=== PATIENT | female | born 1965 | race Caucasian/White ===

== ENCOUNTER 2017-05-07 07:37 | Outpatient (CLI) | payer BC, SELFPAY ==
[2017-05-07 16:07] LABS: PHA INR Fingerstick 2.6 (0.9-1.1)
== END 2017-05-07 16:19 | disposition home or self-care (01) ==
LOC: ACC 07:38
PROVIDERS: Family Provider Internal Medicine; PCP Internal Medicine; Visit Provider Internal Medicine
DX: I82.409 Acute embolism and thrombosis of unspecified deep veins of unspecified lower extremity (principal); Z51.81 Encounter for therapeutic drug level monitoring; Z79.01 Long term (current) use of anticoagulants
CPT/HCPCS: 85610

== ENCOUNTER → 2017-05-07 08:15 | Outpatient (CLI) | payer BC, SELFPAY ==
--- NOTE | 2017-05-07 08:21 | MM_ITS ---
MM Dig screening mamm BI w/CAD CAD Screening COMPARISON: Digital mammograms 04/24/2015 and 04/26/2016 INDICATION: There is no personal or family history of breast cancer. 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 R2 CAD reviewed. FINDINGS: The breasts are composed primarily of fat with minimal scattered fibroglandular densities in each breast. Again noted is a prominent vein left breast stable and unchanged from the previous exams. There are couple of tiny benign-appearing calcifications in each breast. There is no suspicious lesion and no suspicious microcalcifications. IMPRESSION: Stable exam no suspicious lesion seen recommend yearly follow-up BI-RADS Category: 2 Benign Finding(s) RECOMMENDED FOLLOW-UP: 1YR - 1 YEAR FOLLOW-UP (A letter has been sent to the patient regarding results of the study.)
== END ==
PROVIDERS: Family Provider Internal Medicine; PCP Internal Medicine; Visit Provider Internal Medicine Hematology & Oncology
DX: Z12.31 Encounter for screening mammogram for malignant neoplasm of breast (principal)
CPT/HCPCS: 77067

== ENCOUNTER 2017-06-04 07:37 | Outpatient (CLI) | payer BC, SELFPAY ==
[2017-06-04 15:12] LABS: PHA INR Fingerstick 2.6 (0.9-1.1)
== END 2017-06-04 15:15 | disposition home health service (06) ==
LOC: ACC 07:38
PROVIDERS: PCP Internal Medicine; Visit Provider Internal Medicine
DX: Z79.01 Long term (current) use of anticoagulants (principal); Z51.81 Encounter for therapeutic drug level monitoring
CPT/HCPCS: 85610

== ENCOUNTER 2017-08-06 11:09 | Outpatient (CLI) | payer BC, SELFPAY ==
[2017-08-06 13:36] LABS: PHA INR Fingerstick 2.3 (0.9-1.1)
== END 2017-08-06 13:39 | disposition home or self-care (01) ==
LOC: ACC 11:11
PROVIDERS: PCP Internal Medicine; Visit Provider Internal Medicine
DX: Z79.01 Long term (current) use of anticoagulants (principal); Z51.81 Encounter for therapeutic drug level monitoring
CPT/HCPCS: 85610; 99211; G0463

== ENCOUNTER → 2017-08-11 15:16 | Outpatient (CLI) | payer BC, SELFPAY ==
--- NOTE | 2017-08-11 15:21 | XR_ITS ---
XR chest 2V HISTORY: ITS.REASON: SHORTNESS OF BREATH,ASTHMA ORDERING PHYSICIAN: Martin Khan PATIENT AGE: 51 years COMPARISON: 03/02/2017 FINDINGS: The cardiomediastinal silhouette and pulmonary vascularity are within normal limits. The lungs are clear without infiltrates, suspicious nodules, or pleural effusions. No acute bony abnormalities. IMPRESSION: Negative chest, no acute finding
== END ==
PROVIDERS: PCP Internal Medicine; Visit Provider Internal Medicine
DX: R06.02 Shortness of breath (principal); Z87.01 Personal history of pneumonia (recurrent)
CPT/HCPCS: 71046

== ENCOUNTER → 2017-08-20 10:27 | Outpatient (CLI) | payer BC, SELFPAY ==
--- NOTE | 2017-08-20 | CA_ITS ---
PROCEDURE: 2-D M-mode and color Doppler study INDICATIONS FOR THE TEST: Chest pain COPD Heart Murmur+ Tobacco Smoking Palpitations+ Fatigue Syncope Edema+ Hypertension Diabetes Mellitus Rheumatic Fever SOB ANDERSON Obesity Hyperlipidemia Family History HD+ Additional History hx of lymphoma PATIENT INFORMATION HEIGHT: 65 WEIGHT: 285 GENDER: Female B/P: 138/72 2-D/M-MODE INTERPRETATION: 2-D MEASUREMENTS OBSERVED VALUES IN CMS Right Ventricular Dimension (RVDd) 2.4 Interventricular Septum (Thickness)(IVsd) 0.8 Left Ventricular Internal Dimensions(LVIDd) 4.9 Left Ventricular Posterior Wall (Thickness)(LVPWd) 0.9 Aortic Root 2.4 Aortic Cusp Separation 1.7 Left Atrial Dimensions (LAD) 3.7 2D 1. Left atrium is mildly enlarged, left ventricle is normal size, visually estimated ejection fraction of 55% with no obvious regional wall motion abnormality. 2. The right atrium and right ventricle are mildly enlarged with normal contractility. 3. The aortic valve is thickened and calcified 4. The mitral valve has mitral calcification. 5. The tricuspid valve is grossly normal. 6. The pulmonic valve is poorly visualized. 7. No significant pericardial effusion noted. DOPPLER INTERROGATION: Doppler interrogation of the aortic, mitral and tricuspid valvular presence of mild aortic, mild mitral and tricuspid regurgitation, tricuspid and enteric velocity insufficient for calculation of the right ventricular systolic pressure, grade 1 diastolic dysfunction seen with tissue Doppler evidence of raised left atrial pressure. CONCLUSION: 1. Mildly enlarged left atrium, normal left ventricular size, visually estimated ejection fraction of 55% with no obvious regional wall motion abnormality, grade 1 diastolic dysfunction seen with tissue Doppler evidence of raised left atrial pressure. 2. Mild aortic, mild mitral and tricuspid regurgitation 3. No significant pericardial effusion noted.
== END ==
PROVIDERS: Family Provider Internal Medicine; PCP Internal Medicine; Visit Provider Internal Medicine
DX: R06.02 Shortness of breath (principal); R60.9 Edema, unspecified; R01.1 Cardiac murmur, unspecified
CPT/HCPCS: 93306

== ENCOUNTER → 2017-09-08 07:34 | Outpatient (CLI) | payer BC, SELFPAY ==
--- NOTE | 2017-09-08 07:39 | CT_ITS ---
CT abdomen pelvis wo con CLINICAL INDICATION: ITS.REASON: LUQ PAIN, NAUSEA ORDERING PHYSICIAN: Martin Khan PATIENT AGE: 51 years COMPARISON: 03/14/2015 TECHNIQUE: Axial images obtained with sagittal and coronal reformats. All CT scans at the facility use one or more dose reduction, viz: automated exposure control; ma/kV adjustment per patient size (including targeted exams where dose is matched to indication; i.e. head); or iterative reconstruction technique. PROCEDURE: Oral Contrast: None IV Contrast: None . FINDINGS: The lung bases are clear. Prior cholecystectomy without ductal dilatation. The spleen, adrenal glands, pancreas, and kidneys have an unremarkable unenhanced CT appearance. There are multiple splenic calcified granulomas as an incidental finding as before. No intestinal obstruction or free air. Prior appendectomy. Prior hysterectomy. No pelvic mass or abnormal fluid collection or focal inflammatory change evident. No acute bony anomalies. IMPRESSION: 1. No acute abdominal or pelvic findings. 2. Postsurgical changes
== END ==
PROVIDERS: Family Provider Internal Medicine; PCP Internal Medicine; Visit Provider Internal Medicine
DX: R10.12 Left upper quadrant pain (principal); R11.0 Nausea
CPT/HCPCS: 74176

== ENCOUNTER 2017-10-08 10:27 | Outpatient (CLI) | payer BC, SELFPAY ==
[2017-10-08 14:09] LABS: PHA INR Fingerstick 2.3 (0.9-1.1)
== END 2017-10-08 14:14 | disposition home or self-care (01) ==
LOC: ACC 10:29
PROVIDERS: PCP Internal Medicine; Visit Provider Internal Medicine
DX: I82.409 Acute embolism and thrombosis of unspecified deep veins of unspecified lower extremity (principal); I26.99 Other pulmonary embolism without acute cor pulmonale
CPT/HCPCS: 85610; 99211; G0463

== ENCOUNTER 2017-11-19 10:44 | Outpatient (CLI) | payer BC, SELFPAY ==
[2017-11-20 11:03] LABS: PHA INR Fingerstick 3.6 (0.9-1.1)
== END 2017-11-20 11:05 | disposition home or self-care (01) ==
LOC: ACC 10:46
PROVIDERS: Family Provider Internal Medicine; PCP Internal Medicine; Visit Provider Internal Medicine
DX: Z79.01 Long term (current) use of anticoagulants (principal); Z51.81 Encounter for therapeutic drug level monitoring; I48.91 Unspecified atrial fibrillation
CPT/HCPCS: 85610; 99211; G0463

== ENCOUNTER 2017-11-28 08:09 | Outpatient (CLI) | payer BC, SELFPAY ==
[2017-11-28 10:31] LABS: PHA INR Fingerstick 2.3 (0.9-1.1)
== END 2017-11-28 10:33 | disposition home or self-care (01) ==
LOC: ACC 08:10
PROVIDERS: PCP Internal Medicine; Visit Provider Internal Medicine
DX: Z79.01 Long term (current) use of anticoagulants (principal); Z51.81 Encounter for therapeutic drug level monitoring; I48.91 Unspecified atrial fibrillation
CPT/HCPCS: 85610; 99211; G0463

== ENCOUNTER 2017-12-19 08:03 | Outpatient (CLI) | payer BC, SELFPAY ==
[2017-12-19 15:10] LABS: PHA INR Fingerstick 3.1 (0.9-1.1)
== END 2017-12-19 15:21 | disposition home or self-care (01) ==
LOC: ACC 08:04
PROVIDERS: PCP Internal Medicine; Visit Provider Internal Medicine
DX: Z79.01 Long term (current) use of anticoagulants (principal); Z51.81 Encounter for therapeutic drug level monitoring; I48.91 Unspecified atrial fibrillation
CPT/HCPCS: 85610; 99211; G0463

== ENCOUNTER 2018-01-16 11:12 | Outpatient (CLI) | payer BC, SELFPAY ==
[2018-01-16 12:15] LABS: PHA INR Fingerstick 2.5 (0.9-1.1)
== END 2018-01-16 12:16 | disposition home or self-care (01) ==
LOC: ACC 11:14
PROVIDERS: PCP Internal Medicine; Visit Provider Internal Medicine
DX: Z51.81 Encounter for therapeutic drug level monitoring (principal); Z79.01 Long term (current) use of anticoagulants; I48.91 Unspecified atrial fibrillation
CPT/HCPCS: 85610; 99211; G0463

== ENCOUNTER 2018-03-02 10:43 | Outpatient (CLI) | payer BC, SELFPAY ==
[2018-03-02 15:25] LABS: PHA INR Fingerstick 1.6 (0.9-1.1)
== END 2018-03-02 15:41 | disposition home or self-care (01) ==
LOC: ACC 10:44
PROVIDERS: PCP Internal Medicine; Visit Provider Internal Medicine
DX: Z51.81 Encounter for therapeutic drug level monitoring (principal); Z79.01 Long term (current) use of anticoagulants; I48.91 Unspecified atrial fibrillation
CPT/HCPCS: 85610; 99211; G0463

== ENCOUNTER 2018-03-30 10:41 | Outpatient (CLI) | payer BC, SELFPAY | END 2018-03-30 12:16 | disposition home or self-care (01) | LOC: ACC 10:42 | PROVIDERS: PCP Internal Medicine; Visit Provider Internal Medicine | DX: Z51.81 Encounter for therapeutic drug level monitoring (principal); Z79.01 Long term (current) use of anticoagulants; I48.91 Unspecified atrial fibrillation | CPT/HCPCS: 85610; 99211; G0463 ==

== ENCOUNTER 2018-04-28 10:17 | Outpatient (CLI) | payer BC, SELFPAY ==
[2018-04-28 13:34] LABS: PHA INR Fingerstick 2.5 (0.9-1.1)
== END 2018-04-28 13:36 | disposition home or self-care (01) ==
LOC: ACC 10:17
PROVIDERS: PCP Internal Medicine; Visit Provider Internal Medicine
DX: Z51.81 Encounter for therapeutic drug level monitoring (principal); Z79.01 Long term (current) use of anticoagulants; I48.91 Unspecified atrial fibrillation
CPT/HCPCS: 85610; 99211; G0463

== ENCOUNTER → 2018-05-11 08:13 | Outpatient (CLI) | payer BC, SELFPAY ==
--- NOTE | 2018-05-11 08:21 | MM_ITS ---
MM Dig screening mamm BI w/CAD ORDERING PHYSICIAN : Susannah Ballard PATIENT AGE: 52 years GENDER: Female COMPARISON: INDICATION: ITS.REASON: SCREENING no hormones. No new complaints. Noncontributory family history. Patient reports previous cancer at lymph nodes of chest. TECHNIQUE: Standard CC and MLO images were obtained. R2 CAD reviewed. Additional CC nipple profile view bilaterally was included FINDINGS: Lower density breast bilaterally. Generalized fatty replacement. No significant new findings compared to previous studies. RIGHT BREAST:No new areas of significant concern. Small Collection of small scattered faint nodular areas at central right breast are again noted and have been present since at least 2011.. .. A second very subtle tiny collection of nodules or lateral at right breast appears similar 2017 2018 studies. & Can be followed. A would recommend and increased bilateral follow-up in not over one year Of LEFT BREAST:Stable no new areas of concern. . Again note prominent vein at the superior left breast unchanged since multiple prior studies IMPRESSION: Stable bilateral mammogram with no new areas of significant concern. Stable benign-appearing findings right breast.. Bilateral follow-up in not over one year recommended. BI-RADS Category: 2 Benign Finding(s) RECOMMENDED FOLLOW-UP: 1YR 1 YEAR FOLLOW-UP (A letter has been sent to the patient regarding results of the study.)
== END ==
PROVIDERS: PCP Internal Medicine; Visit Provider Internal Medicine Hematology & Oncology
DX: Z12.31 Encounter for screening mammogram for malignant neoplasm of breast (principal)
CPT/HCPCS: 77067

== ENCOUNTER → 2018-05-27 07:41 | Outpatient (CLI) | payer BC, SELFPAY | PROVIDERS: PCP Internal Medicine; Visit Provider Internal Medicine | DX: R07.89 Other chest pain (principal) | CPT/HCPCS: 93005 ==

== ENCOUNTER → 2018-06-08 10:44 | Outpatient (CLI) | payer BC, SELFPAY ==
[2018-06-08 11:27] LABS: PHA INR Fingerstick 2.6 (0.9-1.1)
== END | disposition home or self-care (01) ==
PROVIDERS: PCP Internal Medicine; Visit Provider Internal Medicine
DX: Z51.81 Encounter for therapeutic drug level monitoring (principal); Z79.01 Long term (current) use of anticoagulants; I48.91 Unspecified atrial fibrillation
CPT/HCPCS: 85610; 99211; G0463

== ENCOUNTER 2018-07-20 10:51 | Outpatient (CLI) | payer BC, SELFPAY ==
[2018-07-20 11:24] LABS: PHA INR Fingerstick 2.6 (0.9-1.1)
== END 2018-07-20 11:26 | disposition home or self-care (01) ==
LOC: ACC 10:52
PROVIDERS: PCP Internal Medicine; Visit Provider Internal Medicine
DX: Z51.81 Encounter for therapeutic drug level monitoring (principal); Z79.01 Long term (current) use of anticoagulants; I48.91 Unspecified atrial fibrillation
CPT/HCPCS: 85610; 99211; G0463

== ENCOUNTER 2018-09-09 10:10 | Outpatient (CLI) | payer BC, SELFPAY ==
[2018-09-09 13:40] LABS: PHA INR Fingerstick 2.7 (0.9-1.1)
== END 2018-09-09 13:44 | disposition home or self-care (01) ==
LOC: ACC 10:10
PROVIDERS: PCP Internal Medicine; Visit Provider Internal Medicine
DX: Z51.81 Encounter for therapeutic drug level monitoring (principal); Z79.01 Long term (current) use of anticoagulants; I48.91 Unspecified atrial fibrillation
CPT/HCPCS: 85610; 99211; G0463

== ENCOUNTER 2018-10-21 10:52 | Outpatient (CLI) | payer BC, SELFPAY ==
[2018-10-21 12:01] LABS: PHA INR Fingerstick 2.4 (0.9-1.1)
== END 2018-10-21 12:13 | disposition home or self-care (01) ==
LOC: ACC 10:52
PROVIDERS: PCP Internal Medicine; Visit Provider Internal Medicine
DX: Z51.81 Encounter for therapeutic drug level monitoring (principal); Z79.01 Long term (current) use of anticoagulants; I48.91 Unspecified atrial fibrillation
CPT/HCPCS: 85610; 99211; G0463

== ENCOUNTER → 2018-10-28 09:10 | Outpatient (CLI) | payer BC, SELFPAY ==
--- NOTE | 2018-10-28 09:20 | NVE_ITS ---
Venous Exam Indications: 729.5 Pain in limb. IMPRESSIONS 1. There is no evidence of significant Reflux. 2. No evidence of deep or superficial vein thrombosis involving the left lower extremity History: PMH: Pulmonary embolus. Deep vein thrombosis. 2 yrs ago. Medications: Warfarin (Coumadin). Left lower extremity venous duplex evaluation. Doppler flow study including spectral analysis, color and ferguson scale imaging. Location: Vascular laboratory. Patient status: Outpatient. Tables: Venous flow and imaging: + +-------+ + Location Overall Flow properties + +-------+ + Left common femoral Patent Normal phasicity; spontaneous; normal augmentation; compressible + +-------+ + Left saphenofemoral junction Patent Compressible + +-------+ + Left profunda femoral Patent Compressible + +-------+ + Left femoral Patent Normal phasicity; spontaneous; normal augmentation; compressible + +-------+ + Left greater saphenous Patent Normal phasicity; spontaneous; normal augmentation; compressible + +-------+ + Left popliteal Patent Normal phasicity; spontaneous; normal augmentation; compressible + +-------+ + Left posterior tibial Patent Compressible + +-------+ + Left peroneal Patent Compressible + +-------+ + Left gastrocnemius Patent Compressible + +-------+ + Left soleal Patent Compressible + +-------+ + (Report amended ) Electronically signed by: Darrius Marley [id number]
== END ==
PROVIDERS: PCP Internal Medicine; Visit Provider Internal Medicine
DX: M79.662 Pain in left lower leg (principal); M79.89 Other specified soft tissue disorders
CPT/HCPCS: 93971

== ENCOUNTER 2018-12-02 10:38 | Outpatient (CLI) | payer BC, SELFPAY ==
[2018-12-02 13:33] LABS: PHA INR Fingerstick 2.2 (0.9-1.1)
== END 2018-12-02 13:36 | disposition home or self-care (01) ==
LOC: ACC 10:38
PROVIDERS: PCP Internal Medicine; Visit Provider Internal Medicine
DX: Z51.81 Encounter for therapeutic drug level monitoring (principal); Z79.01 Long term (current) use of anticoagulants
CPT/HCPCS: 85610; 99211; G0463

== ENCOUNTER 2019-01-12 10:31 | Outpatient (CLI) | payer BC, SELFPAY ==
[2019-01-12 12:09] LABS: PHA INR Fingerstick 2.7 (0.9-1.1)
== END 2019-01-12 12:11 | disposition home or self-care (01) ==
LOC: ACC 10:32
PROVIDERS: PCP Internal Medicine; Visit Provider Internal Medicine
DX: Z51.81 Encounter for therapeutic drug level monitoring (principal); Z79.01 Long term (current) use of anticoagulants; I48.91 Unspecified atrial fibrillation
CPT/HCPCS: 85610; 99211; G0463

== ENCOUNTER 2019-02-24 10:35 | Outpatient (CLI) | payer BC, SELFPAY ==
[2019-02-24 13:59] LABS: PHA INR Fingerstick 3.2 (0.9-1.1)
== END 2019-02-24 14:01 | disposition home or self-care (01) ==
LOC: ACC 10:36
PROVIDERS: PCP Internal Medicine; Visit Provider Internal Medicine
DX: Z51.81 Encounter for therapeutic drug level monitoring (principal); Z79.01 Long term (current) use of anticoagulants; I48.91 Unspecified atrial fibrillation
CPT/HCPCS: 85610; 99211; G0463

== ENCOUNTER 2019-03-24 10:43 | Outpatient (CLI) | payer BC, SELFPAY ==
[2019-03-24 16:20] LABS: PHA INR Fingerstick 2.4 (0.9-1.1)
== END 2019-03-24 16:31 | disposition home or self-care (01) ==
LOC: ACC 10:43
PROVIDERS: PCP Internal Medicine; Visit Provider Internal Medicine
DX: Z51.81 Encounter for therapeutic drug level monitoring (principal); Z79.01 Long term (current) use of anticoagulants; I48.91 Unspecified atrial fibrillation
CPT/HCPCS: 85610; 99211; G0463

== ENCOUNTER 2019-05-05 10:31 | Outpatient (CLI) | payer BC, SELFPAY | END 2019-05-05 15:20 | disposition home or self-care (01) | LOC: ACC 10:32 | PROVIDERS: PCP Internal Medicine; Visit Provider Internal Medicine | DX: Z51.81 Encounter for therapeutic drug level monitoring (principal); Z79.01 Long term (current) use of anticoagulants; I48.91 Unspecified atrial fibrillation | CPT/HCPCS: 85610; 99211; G0463 ==

== ENCOUNTER → 2019-05-14 07:55 | Outpatient (CLI) | payer BC, SELFPAY ==
--- NOTE | 2019-05-14 07:58 | MM_ITS ---
PROCEDURE: MM DIG SCREENING MAMM BI W/CAD CLINICAL INDICATION: SCREENING There is no personal or family history of breast cancer. COMPARISON: [facility] DIG MAMM-SCREEN RUBY W/CAD from 04/26/2016 [facility] MM Dig screening mamm BI w/CAD from 05/07/2017 [facility] MM Dig screening mamm BI w/CAD from 05/11/2018 TECHNIQUE: Standard CC and MLO images were obtained. Sergio images were performed. FINDINGS: The breasts are composed primarily of fat with very minimal scattered fibroglandular densities throughout each breast. There are stable tiny nodular density central portion right breast central portion right breast confirmed on sergio images. Again noted are the prominent veins near the axillary tail left breast stable and unchanged from the previous studies. There is no suspicious lesion and no suspicious microcalcifications. IMPRESSION: Fatty type breast parenchyma with no suspicious lesions seen BI-RAD Category: 2 Benign Finding(s) FOLLOW-UP: 1YR 1 Year Follow-up (A letter has been sent to the patient regarding results of the study.) Dictated by: Dr. Charlie Gonzalez MD 05/18/2019 10:[address] Charlie Gonzalez MD in [place] 05/18/2019 10:11
== END ==
PROVIDERS: PCP Internal Medicine; Visit Provider Internal Medicine Hematology & Oncology
DX: Z12.31 Encounter for screening mammogram for malignant neoplasm of breast (principal)
CPT/HCPCS: 77063; 77067

== ENCOUNTER → 2019-06-03 11:30 | Outpatient (CLI) | payer BC, SELFPAY | PROVIDERS: PCP Internal Medicine; Visit Provider Internal Medicine Cardiovascular Disease | DX: R00.2 Palpitations (principal); R01.1 Cardiac murmur, unspecified; R06.00 Dyspnea, unspecified; R94.31 Abnormal electrocardiogram [ECG] [EKG] | CPT/HCPCS: 93270 ==

== ENCOUNTER → 2019-06-16 07:40 | Outpatient (CLI) | payer SELFPAY ==
--- NOTE | 2019-06-16 | CA_ITS ---
APPROVED REPORT Exam: Pharmacologic Technologist: Mony Polk Ht: 5 ft 5 in Wt: 276 lbs BSA: 2.27 m2 HR: 72 bpm BP: 153/91 mmHg Indications: Abnormal EKG, Shortness of Breath, Palpitations Medical History Medications: Warfarin,,,,, Metoprolol,,,,, PaROXETINE,,,,, Meclizine,,,,, SpirOnolactone,,,,, Stress Test Details Test: LEXISCAN HR Resting HR: 76 bpm Max Heart Rate (APMHR): 165 bpm Max HR Achieved: 98 bpm Target HR (85% APMHR): 140 bpm % of APMHR: 59 Recovery HR: 84 bpm BP Resting BP: 153.0/91.0 mmHg Max BP: 199.0/101.0 mmHg Recovery BP: 148.0/91.0 mmHg ECG Clinical Exercise duration: 04:02 min Highest Stage Achieved: Stress ECG Conclusion Resting ECG: Normal sinus rhythm, first degree AV block Symptoms: Shortness of air, headache. No chest pain Arrhythmias/Ectopy: None ST-T Changes: No significant changes. Conclusion: Unremarkable Lexiscan stress. Myoview images reported separately. Test Summary RECOVERY 08:43 . . . 137/ 88 . . REST 05:14 . . 76 . 153/ 91 . . Stage 1 . . . . . . . Myoview Injected Stage 1 01:00 . . 94 . . . . Stage 2 01:00 . . 94 . . . . Stage 3 01:00 . . 92 . 178/100 . . Stage 4 01:00 . . 93 . 185/ 94 . . Stage 4 01:02 . . 92 . 185/ 94 . Stop exercise at 04:02 RECOVERY 01:00 . . 92 . . . . RECOVERY 02:00 . . 87 . 164/107 . . RECOVERY 03:00 . . 79 . 181/100 . . RECOVERY 04:00 . . 86 . 181/100 . . RECOVERY 05:00 . . 85 . 198/100 . . RECOVERY 06:00 . . 82 . 198/100 . . RECOVERY 07:00 . . 87 . 148/ 91 . . RECOVERY 08:00 . . 86 . 148/ 91 . . RECOVERY 08:43 . . 79 . 137/ 88 . . Electronically signed by : Elvin Garrido, 06/17/2019 14:21:11
--- NOTE | 2019-06-16 07:41 | CT_ITS ---
PROCEDURE: CT HEART W CALCIUM SCORE CLINICAL HISTORY: CARDIAC work up COMPARISON: No exams were available for comparison TECHNIQUE: Axial images obtained with sagittal and coronal reformats. All CT scans at the facility use one or more dose reduction, viz: automated exposure control, ma/kV adjustment per patient size (including targeted exams where dose is matched to indication, i.e. head), or iterative reconstruction technique. FINDINGS: CORONARY ARTERY CALCIUM SCORE IS 0. NO IDENTIFIABLE CALCIFIC PLAQUE WITH VERY LOW CARDIOVASCULAR DISEASE RISK. THERE ARE SOME AORTIC VALVE CALCIFICATIONS NOTED IMPRESSION: CORONARY ARTERY CALCIUM SCORE IS 0. NO IDENTIFIABLE CALCIFIC PLAQUE WITH VERY LOW CARDIOVASCULAR DISEASE RISK. THERE ARE SOME AORTIC VALVE CALCIFICATIONS NOTED Dictated by: Darrius Marley MD 06/16/2019 18:20 Electronically signed by Darrius Marley MD in [place] 06/16/2019 18:20
== END ==
PROVIDERS: PCP Internal Medicine; Visit Provider Internal Medicine Cardiovascular Disease
DX: Z13.6 Encounter for screening for cardiovascular disorders (principal); R06.02 Shortness of breath; R07.9 Chest pain, unspecified
CPT/HCPCS: 75571; 93017

== ENCOUNTER → 2019-06-16 07:45 | Outpatient (CLI) | payer BC, SELFPAY ==
--- NOTE | 2019-06-16 07:46 | CA_ITS ---
APPROVED REPORT Customer Support Consultant: Jeannie Garcia RVT Laterality: Bilateral Study Quality: Excellent Indications: HTN Risk Factors Hypertension: Doppler Spectral Velocity Analysis ECA (R) 116.80/9.40 cm/s ECA (L) 92.20/8.90 cm/s dICA (R) 86.80/34.90 cm/s dICA (L) 73.60/24.30 cm/s Brittany (R) 90.40/34.90 cm/s Brittany (L) 86.80/26.30 cm/s pICA (R) 82.60/22.80 cm/s pICA (L) 88.70/28.00 cm/s dCCA (R) 68.30/17.80 cm/s dCCA (L) 94.70/26.30 cm/s pCCA (R) 84.20/17.20 cm/s pCCA (L) 98.90/20.60 cm/s Vert (R) 47.70/14.20 cm/s Vert (L) 38.80/10.50 cm/s ICA/CCA 1.32 ICA/CCA 0.94 Conclusion Study suggests no evidence of stenosis in the right internal cartoid artery. Study suggests no evidence of stenosis in the left internal cartoid artery. Antegrade flow seen bilateral vertebral arteries. Electronically signed by : Darrius Marley MD 06/16/2019 18:13:03
--- NOTE | 2019-06-16 07:46 | CA_ITS ---
APPROVED REPORT EXAM: Comprehensive 2D, Doppler, and color-flow Echocardiogram Human Resources Office Manager: Jeannie Garcia RVT Ht: 5 ft 5 in Wt: 276lbs BSA: 2.27 BP: 146/97 mmHg Indications: CP,ABN EKG,PALPS,SOB,H/O PE/DVT,H/O NON-HODGKINS LYMPHOMA 2D Dimensions LVOT 1.55 cm (M/F) 1.5-2.5 M-Mode Dimensions RVDd 2.31 cm (0.9-2.6) LVDd 4.55 cm (3.5-5.7) LVDs 2.81 cm (3.5-5.7) IVSd 1.21 cm (0.6-1.1) PWd 0.91 cm (0.6-1.1) EF (Teich) 68.60% FS 38.20% EDV (Teich) 94.90 mL ESV (Teich) 29.80 mL LV Diastology E/A Ratio 0.86 Mitral Valve MV A Velocity 71.00 (40-130 cm/s) Left Ventricle Left atrium is mildly enlarged, left ventricle is normal size, visually estimated ejection fraction 55% with no regional wall motion abnormality, left ventricle wall thickness is upper limit of the normal, there is grade 1 diastolic dysfunction seen without tissue Doppler evidence of raise left atrial pressure. Right Ventricle Right atrium is normal size, right ventricle is mildly enlarged with normal contractility. Aortic Valve Aortic valve is minimally thickened and fibrosed, there is no aortic stenosis, there is mild aortic insufficiency. Mitral Valve Mitral valve is grossly normal, there is mild mitral regurgitation. Tricuspid Valve Tricuspid valve is grossly normal, there is mild tricuspid regurgitation, tricuspid regurgitation jet velocity is inadequate for calculation of the right ventricular systolic pressure. Pulmonic Valve Pulmonic valve is poorly visualized. Great Vessels Aortic root is normal size. Pericardium No significant pericardial effusion noted. Conclusion 1. Mildly enlarged left atrium, normal left ventricular size, visually estimated ejection fraction 55% with no regional wall motion abnormality, grade 1 diastolic dysfunction seen without tissue Doppler evidence of raise left atrial pressure. 2. Mildly enlarged right ventricle with normal contractility. 3. Mild aortic, mild mitral and tricuspid regurgitation. 4. No significant pericardial effusion noted. Electronically signed by : Elvin Garrido, 06/17/2019 16:08:20
[2019-06-16 11:16] LABS: PHA INR Fingerstick 2.2 (0.9-1.1)
--- NOTE | 2019-06-16 12:30 | NM_ITS ---
APPROVED REPORT Exam: Nuclear Stress Test Indication: DYSRHYTHMIA, HTN, OBESITY, FM. HX, C.P., SOB, PALPITATIONS, ABN EKG Patient Location: Outpatient Stress Tech: Mony Polk OR Tech:Ambreen Samaniego, ARRT RT (R)(N)(M) Ht: 5 ft 5 in Wt: 276 lbs HR: 72 bpm BP: 153/91 mmHg BSA: 2.27 m2 BMI: 45.9 History: DYSRHYTHMIA, HTN, OBESITY, FM. HX, C.P., SOB, PALPITATIONS, ABN EKG Procedure: Patient received a 0.4 mg of intravenous Lexiscan, resting heart rate 72 bpm, resting blood pressure 153/91 mmHg, with Lexiscan maximum heart rate achived was 93 bpm which is Less than 85 % of the maximum predicted heart rate and blood pressure was 199/101 mmHg. With Lexiscan, patient denied any complaint of chest pain. Electrocardiogram Resting electrocardiogram showed sinus rhythm, with Lexiscan there is less than 1.[address] segment depression noted from the baseline EKG. The EKG portion of the Lexiscan Myoview is nondiagnostic. Cardiac Stress and Resting SPECT Images: Cardiac Stress and Resting SPECT images were obtained using technetium 99m Myoview 31.7 mCi stress and 10.76 mCi at rest. Gated SPECT with analysis of segmental wall motion and calculation of the ejection fraction also done. Cardiac stress and resting SPECT images show uniform myocardial activity without segmental perfusion abnormality, computer derived ejection fraction is 60% with no regional wall motion abnormality, right ventricle is normal size and contractility. Conclusion: 1. The EKG portion of the Lexiscan Myoview is nondiagnostic. 2. No scintigraphic evidence of reversible ischemia seen, computer derived ejection fraction is 60% with no regional wall motion abnormality, right ventricle is normal size and contractility. 3. Normal Lexiscan Myoview study. Electronically signed by : Elvin Garrido, 06/17/2019 15:09:18
== END ==
PROVIDERS: PCP Internal Medicine; Visit Provider Internal Medicine Cardiovascular Disease
DX: R00.2 Palpitations (principal); R01.1 Cardiac murmur, unspecified; R07.9 Chest pain, unspecified; R06.00 Dyspnea, unspecified; R53.83 Other fatigue; I10 Essential (primary) hypertension; R94.31 Abnormal electrocardiogram [ECG] [EKG]; G47.33 Obstructive sleep apnea (adult) (pediatric); R06.83 Snoring; R40.0 Somnolence; R09.89 Other specified symptoms and signs involving the circulatory and respiratory systems; Z51.81 Encounter for therapeutic drug level monitoring; Z79.01 Long term (current) use of anticoagulants
CPT/HCPCS: 78452; 85610; 93306; 93880; 99211; A9502; G0399; G0463; J2785

== ENCOUNTER 2019-07-28 10:45 | Outpatient (CLI) | payer BC, SELFPAY ==
[2019-07-28 13:20] LABS: PHA INR Fingerstick 2.4 (0.9-1.1)
== END 2019-07-28 13:21 | disposition home or self-care (01) ==
LOC: ACC 10:45
PROVIDERS: PCP Internal Medicine; Visit Provider Internal Medicine
DX: Z51.81 Encounter for therapeutic drug level monitoring (principal); Z79.01 Long term (current) use of anticoagulants; I48.91 Unspecified atrial fibrillation
CPT/HCPCS: 85610; 99211; G0463

== ENCOUNTER 2019-10-01 10:26 | Outpatient (CLI) | payer BC, SELFPAY ==
[2019-10-01 10:57] LABS: PHA INR Fingerstick 2.8 (0.9-1.1)
== END 2019-10-01 11:00 | disposition home or self-care (01) ==
LOC: ACC 10:27
PROVIDERS: PCP Internal Medicine; Visit Provider Internal Medicine
DX: Z51.81 Encounter for therapeutic drug level monitoring (principal); Z79.01 Long term (current) use of anticoagulants; I48.91 Unspecified atrial fibrillation
CPT/HCPCS: 85610; 99211; G0463

== ENCOUNTER → 2019-11-03 11:03 | Outpatient (CLI) | payer BC, SELFPAY ==
[2019-11-03 12:05] LABS: Chloride 104 mmol/L (98-107); Sodium 141 mmol/L (136-145)
[2019-11-03 12:06] LABS: Potassium 4.4 mmoL/L (3.5-5.1)
[2019-11-03 12:08] LABS: Blood Urea Nitrogen 13 mg/dl (7-17); Estimated Glomerular Filt Rate 74 ml/min (>60); GFR (African American) 90 ML/MIN (>60)
[2019-11-03 12:09] LABS: Anion Gap 12.4 mEq/L (5-15); Calcium 9.4 mg/dl (8.4-10.2); Carbon Dioxide 29 mmol/L (22.0-30.0); Glucose 101 mg/dl (74-100)
[2019-11-03 12:47] LABS: Coronavirus 19 IgG Antibody Negative (Negative); Coronavirus 19 IgM Antibody Negative (Negative)
== END ==
PROVIDERS: Internal Medicine Cardiovascular Disease; Visit Provider Physician Assistant
DX: Z03.818 Encounter for observation for suspected exposure to other biological agents ruled out (principal); E66.9 Obesity, unspecified; I10 Essential (primary) hypertension; Z86.718 Personal history of other venous thrombosis and embolism
CPT/HCPCS: 36415; 80048; 86328

== ENCOUNTER → 2019-11-04 19:49 | Outpatient (CLI) | payer BC, SELFPAY | PROVIDERS: PCP Internal Medicine; Visit Provider Physician Assistant | DX: G47.33 Obstructive sleep apnea (adult) (pediatric) (principal); I10 Essential (primary) hypertension; R40.0 Somnolence | CPT/HCPCS: 95810 ==

== ENCOUNTER 2019-11-12 10:13 | Outpatient (CLI) | payer BC, SELFPAY ==
[2019-11-12 15:03] LABS: PHA INR Fingerstick 2.6 (0.9-1.1)
== END 2019-11-12 15:56 | disposition home or self-care (01) ==
LOC: ACC 10:14
PROVIDERS: PCP Internal Medicine; Visit Provider Internal Medicine
DX: Z51.81 Encounter for therapeutic drug level monitoring (principal); Z79.01 Long term (current) use of anticoagulants; I48.91 Unspecified atrial fibrillation
CPT/HCPCS: 85610; 99211; G0463

== ENCOUNTER 2020-02-01 14:53 | Outpatient (CLI) | payer BC, SELFPAY ==
[2020-02-01 16:14] LABS: PHA INR Fingerstick 2.8 (0.9-1.1)
== END 2020-02-01 16:19 | disposition home or self-care (01) ==
LOC: ACC 14:54
PROVIDERS: PCP Internal Medicine; Visit Provider Internal Medicine
DX: Z51.81 Encounter for therapeutic drug level monitoring (principal); Z79.01 Long term (current) use of anticoagulants; I48.91 Unspecified atrial fibrillation
CPT/HCPCS: 85610; 99211; G0463

== ENCOUNTER 2020-02-21 16:00 | Emergency (ER) | payer BC, SELFPAY ==
--- NOTE | 2020-02-21 16:07 | XR_ITS ---
PROCEDURE: XR KNEE LT 3V CLINICAL INDICATION: trauma Pain following injury COMPARISON: CR KNEE3L KNEE-3 VIEWS-LT from 06/12/2016 FINDINGS: No fracture or dislocation. No lytic or blastic change. There is normal mineralization. Mild osteoarthritic changes of the medial compartment and patellofemoral joint. Other findings:None. IMPRESSION: No acute findings. Dictated by: Darrius Marley MD 02/21/2020 17:55 Darrius Marley MD in [place] 02/21/2020 17:55
--- NOTE | 2020-02-21 16:07 | XR_ITS ---
PROCEDURE: XR HIP LT 2-3V W/PELVIS CLINICAL INDICATION: trauma Posttraumatic pain COMPARISON: CR PELAP PELVIS AP ONLY from 09/13/2014 FINDINGS: No fracture or dislocation is evident. No significant degenerative change. No lytic or blastic change. Unremarkable soft tissues. IMPRESSION: No acute findings. Dictated by: Darrius Marley MD 02/21/2020 17:57 Darrius Marley MD in [place] 02/21/2020 17:57
--- NOTE | 2020-02-21 16:07 | XR_ITS ---
PROCEDURE: XR ANKLE LT MIN 3V CLINICAL INDICATION: trauma Pain COMPARISON: No exams were available for comparison FINDINGS: Well-circumscribed calcific densities are present at the tip of the medial malleolus consistent with ununited ossification centers. Soft tissue swelling is present medially and laterally. IMPRESSION: Soft tissue swelling, no acute fracture Dictated by: Darrius Marley MD 02/21/2020 17:56 Darrius Marley MD in [place] 02/21/2020 17:56
[2020-02-21 16:12] VITALS: BP 169/95; PULSE 68; RESP 17; TEMP 36.8; O2SAT 99; BMI 44.9
--- NOTE | 2020-02-21 16:21 | HMH.EDFALL ---
ED Disposition Clinical Impression: Sprain of left hip Qualifiers: Encounter type: initial encounter Qualified Code(s): S73.102A - Unspecified sprain of left hip, initial encounter Sprain of left ankle Qualifiers: Encounter type: initial encounter Involved ligament of ankle: anterior talofibular ligament Qualified Code(s): S93.492A - Sprain of other ligament of left ankle, initial encounter Disposition: Home, Self-Care Condition on Discharge: Good Instructions: DI for Ankle Sprain Prescriptions: Hydrocodone/Acetaminophen [[place] 5-325 Tablet] 1 each PO Q6 #12 tab Prescription Printed Referrals: Martin Khan [Primary Care Provider] - - Critical Care Critical Care Time: No Attestation: On 02/21/20, the high probability of a clinically significant, sudden or life threatening deterioration of the following system(s) required my full and direct attention, intervention and personal management. The time I documented below is in addition to time spent performing reported procedures but includes the following listed in this critical care notation. Medical Decision Making - Medical Records Medical records reviewed: Yes: I reviewed the patient's medical records. - Kishor Inquiry Pt receiving controlled substance: No Vital Signs: 02/21/20 16:12 02/21/20 17:00 02/21/20 17:43 Temperature 98.2 F Temperature Source Oral Pulse Rate [Right Radial] 68 71 72 Respiratory Rate 17 18 20 Blood Pressure [Right Arm] 169/95 H 166/92 H 142/79 H Blood Pressure Mean [Right Arm] 119 116 100 Blood Pressure Source [Right Arm] Automatic Cuff Automatic Cuff Blood Pressure Position [Right Arm] Sitting Sitting 02 Sat by Pulse Oximetry 99 100 99 Oxygen Delivery Method Room Air Room Air Room Air Orders (Tests/Meds): ED MEDICATIONS Discontinued Medications Generic Name Dose Route Start Last Admin Trade Name Freq PRN Reason Stop Dose Admin Acetaminophen 1,000 mg 02/21/20 16:07 02/21/20 16:24 Acetaminophen 500mg Tab PO 02/21/20 16:08 1,000 mg ONCE ONE Administration ORDERS Category Date Time Status XR ankle LT min 3V Stat Exams 02/21/20 16:07 Taken XR hip LT 2-3V w/pelvis Stat Exams 02/21/20 16:07 Taken XR knee LT 3V Stat Exams 02/21/20 16:07 Taken - Radiology Data #1 Image(s): Hip, Knee, Ankle Image Reviewed: Yes I reviewed the patient's radiology results, Yes I reviewed the patient's radiology image Mild soft tissue swelling, no evidence of acute fracture or dislocation. Chronic changes. - Reevaluation(s) Time: 17:49 Reevaluation #1: On reevaluation, patient is feeling better. Repeat exam is slightly improved. No evidence of acute fracture. Patient is to follow-up with PCP in 24 hours. Given strict return precautions. Verbalized understanding. Medical Decision Narrative: This is a 54-year-old female presented to the emergency department after an axonal fall. Complaining of left hip and ankle pain. Imaging obtained. Patient is on Coumadin, however did not sustain any head or neck injury. Fall HPI - General Chief Complaint: Fall Stated Complaint: Fall Time Seen by Provider: 02/21/20 16:20 Mode of Arrival: EMS Limitations: No Limitations Description of Symptoms (Recalled from ER Triage Doc. by RN): pt presents to ed with c/o fall. pt states that she put her foot down on the floor and it popped and she fell injurying her left knee, hip and ankle. - History of Present Illness HPI Narrative: This is a 54-year-old female presenting to the emergency department after accidental fall. Patient states that she was walking out of her daughter's door when she tripped on a step. She fell onto her left side. She is complaining of left hip pain, left upper leg pain and left ankle pain. She heard a large pop at her hip when she fell. The patient did not have any syncope. She did not sustain any head trauma or have any focal weakness. No neck pain. Patient states that the pain is
--- NOTE | 2020-02-21 16:38 | PC.NURSE ---
radiology studies complete. pt pending disposition.
[2020-02-21 17:00] VITALS: BP 166/92; PULSE 71; RESP 18; O2SAT 100
[2020-02-21 17:43] VITALS: BP 142/79; PULSE 72; RESP 20; O2SAT 99
[2020-02-21 18:27] VITALS: BP 150/78; PULSE 68; RESP 20; TEMP 36.8; O2SAT 98
== END 2020-02-21 18:27 | disposition home or self-care (01) ==
PROVIDERS: Emergency Provider Emergency Medicine; PCP Internal Medicine
DX: S73.102A Unspecified sprain of left hip, initial encounter (principal); S93.492A Sprain of other ligament of left ankle, initial encounter; W01.0XXA Fall on same level from slipping, tripping and stumbling without subsequent striking against object, initial encounter; Y92.89 Other specified places as the place of occurrence of the external cause; C85.90 Non-Hodgkin lymphoma, unspecified, unspecified site; E78.5 Hyperlipidemia, unspecified; I10 Essential (primary) hypertension; R01.1 Cardiac murmur, unspecified; F33.1 Major depressive disorder, recurrent, moderate; Z79.899 Other long term (current) drug therapy; Z88.5 Allergy status to narcotic agent; Z88.8 Allergy status to other drugs, medicaments and biological substances
CPT/HCPCS: 73502; 73562; 73610; 99282

== ENCOUNTER → 2020-02-23 11:06 | Outpatient (CLI) | payer BC, SELFPAY | PROVIDERS: Visit Provider Urology | DX: N39.0 Urinary tract infection, site not specified (principal) | CPT/HCPCS: 87086; 87088; 87186 ==

== ENCOUNTER → 2020-03-06 13:34 | Outpatient (CLI) | payer BC, SELFPAY ==
--- NOTE | 2020-03-06 13:34 | CT_ITS ---
PROCEDURE: CT ABDOMEN PELVIS WO CON CLINICAL INDICATION: recurrent bladder infections bilat flank pain prior 09/08/17 COMPARISON: CT ABDPELWO CT abdomen pelvis wo con from 09/08/2017 TECHNIQUE: Axial images obtained with sagittal and coronal reformats. All CT scans at the facility use one or more dose reduction, viz: automated exposure control, ma/kV adjustment per patient size (including targeted exams where dose is matched to indication, i.e. head), or iterative reconstruction technique. FINDINGS: LOWER THORAX: No acute finding ABDOMEN & PELVIS: Prior cholecystectomy. No focal liver lesion evident. The spleen, adrenal glands, pancreas, and kidneys have an unremarkable appearance. No renal or ureteral calculi. No hydronephrosis. No intestinal obstruction or free air. There has been a prior hysterectomy. There is also sclerosis of the SI joints. No acute bony anomaly is evident. IMPRESSION: No acute finding Dictated by: Drarius Marley MD 03/07/2020 13:40 Darrius Marley MD in [place] 03/07/2020 13:40
== END ==
PROVIDERS: PCP Internal Medicine; Visit Provider Urology
DX: N39.0 Urinary tract infection, site not specified (principal)
CPT/HCPCS: 74176

== ENCOUNTER → 2020-03-08 10:27 | Outpatient (CLI) | payer BC, SELFPAY ==
[2020-03-08 15:37] LABS: Coronavirus 19 IgG Antibody Negative (Negative); Coronavirus 19 IgM Antibody Negative (Negative)
== END ==
PROVIDERS: Visit Provider Urology
DX: Z01.818 Encounter for other preprocedural examination (principal); N39.0 Urinary tract infection, site not specified
CPT/HCPCS: 36415; 86328

== ENCOUNTER 2020-03-10 09:46 | Day surgery (SDC) | payer BC, SELFPAY ==
[2020-03-07 13:00] VITALS: BMI 44.9
[2020-03-10 10:12] VITALS: BP 122/57; PULSE 80; RESP 18; TEMP 36.7; O2SAT 96
[2020-03-10 11:26] VITALS: BP 154/77; PULSE 81; RESP 18; TEMP 36.6; O2SAT 97
--- NOTE | 2020-03-10 15:49 | P.OP_ITS ---
Date of procedure: 03/10/20 Pre-op Diagnosis:: Recurrent urinary tract infections Post-op Diagnosis:: Same Procedure performed:: Cystoscopy Surgeon:: Honorio Gibson MD Anesthesia: local Estimated blood loss (mL): 0 Clinical Note:: Patient is a 54-year-old white female with recurring urinary tract infections. She has another UTI after her recent office visit in presents for urologic work- up. CT scan performed as part of work-up showed no urologic abnormalities. Operative findings:: Patient with normal normal bladder findings. The urethra was tender to passage of the scope. Operative note:: Patient taken to the treatment room after informed consent was obtained. On the stretcher she was placed into the frog-leg position and prepped draped in the standard surgical fashion. 2% lidocaine placed into the urethra and there was some discomfort associated with that. After a few minutes the flexible cystoscope introduced to the urethral meatus and there was tenderness also noted with passage of the scope into the bladder. Once in the bladder the discomfort eased and the bladder was examined in a systematic fashion. There was no evidence of mucosal abnormalities, stones, trabeculation or cellule formation. The ureteral orifices in their normal anatomic position. There was some mild squamous metaplasia at the bladder neck. Bladder neck and urethra were normal as well. The scope removed and the patient tolerated procedure well. We discussed the findings today and she is to continue previous measures including increasing her fluid intake and decreasing the caffeine intake and timed voiding. If she continues to have UTIs we discussed possibility of placing her on low-dose prophylactic antibiotic. Condition: stable Disposition: same day Specimens:: None Complications:: None
== END 2020-03-10 11:40 | disposition home or self-care (01) ==
LOC: OUTP 09:47
PROVIDERS: PCP Internal Medicine; Visit Provider Urology
PROC: (CPT 52000; principal; 2020-03-10 10:45)
DX: Z09 Encounter for follow-up examination after completed treatment for conditions other than malignant neoplasm (principal); Z87.440 Personal history of urinary (tract) infections; Z85.9 Personal history of malignant neoplasm, unspecified; I73.9 Peripheral vascular disease, unspecified; F32.9 Major depressive disorder, single episode, unspecified; E78.5 Hyperlipidemia, unspecified; I10 Essential (primary) hypertension; R00.2 Palpitations; Z90.49 Acquired absence of other specified parts of digestive tract; Z90.710 Acquired absence of both cervix and uterus; Z79.01 Long term (current) use of anticoagulants; Z79.899 Other long term (current) drug therapy
CPT/HCPCS: 52000

== ENCOUNTER 2020-03-13 10:40 | Outpatient (CLI) | payer BC, SELFPAY ==
[2020-03-13 14:55] LABS: PHA INR Fingerstick 2.5 (0.9-1.1)
== END 2020-03-13 15:36 | disposition home or self-care (01) ==
LOC: ACC 10:41
PROVIDERS: PCP Internal Medicine; Visit Provider Internal Medicine
DX: Z51.81 Encounter for therapeutic drug level monitoring (principal); Z79.01 Long term (current) use of anticoagulants; I48.91 Unspecified atrial fibrillation
CPT/HCPCS: 85610; 99211; G0463

== ENCOUNTER 2020-04-24 10:52 | Outpatient (CLI) | payer BC, SELFPAY | END 2020-04-24 16:01 | disposition home or self-care (01) | LOC: ACC 10:53 | PROVIDERS: PCP Internal Medicine; Visit Provider Internal Medicine | DX: Z51.81 Encounter for therapeutic drug level monitoring (principal); Z79.01 Long term (current) use of anticoagulants; I48.91 Unspecified atrial fibrillation | CPT/HCPCS: 85610; 99211; G0463 ==

== ENCOUNTER → 2020-05-16 07:14 | Outpatient (CLI) | payer BC, SELFPAY ==
--- NOTE | 2020-05-16 07:48 | MM_ITS ---
PROCEDURE: MM DIG SCREENING MAMM BI W/CAD Referring Doctor: Susannah Ballard Patient Age:54Y CLINICAL INDICATION: SCREENING 54-year-old. No hormones. History of non-Hodgkin's lymphoma . Family history. Negative noncontributory COMPARISON: MG DMSB DIGITAL MAMM-SCREEN BILATERAL from 02/23/2010 MG DMSB DIGITAL MAMM-SCREEN BILATERAL from 02/26/2011 MG [id number] DIG MAMM-DX UNIL ADD VIEWS-RT from 03/15/2011 MG DMSB DIGITAL MAMM-SCREEN BILATERAL from 03/03/2012 MG DMSB DIG MAMM-SCREEN RUBY from 03/31/2013 MG DMSB DIG MAMM-SCREEN RUBY from 04/20/2014 MG DMSB DIG MAMM-SCREEN RUBY from 04/24/2015 MG DMSB DIG MAMM-SCREEN RUBY W/CAD from 04/26/2016 MG SCBI MM Dig screening mamm BI w/CAD from 05/07/2017 MG SCBI MM Dig screening mamm BI w/CAD from 05/11/2018 MG MM DIG SCREENING MAMM BI W/CAD from 05/14/2019 TECHNIQUE: Standard CC and MLO images were obtained. R2 CAD reviewed. Bilateral digital breast tomosynthesis included. FINDINGS: Right breast-. . Area labeled A: Subtle area of density at upper-outer quadrant was seen before but is slightly more evident today and appears slightly focal on cc tomosynthesis image 29, 28 which the the the the the the the the the the the the the the the the. Would benefit from additional spot views and ultrasound right breast. Cc and MLO spot view with a full 90 degree view right breast suggested. Possible tiny underlying sister associated with some asymmetric fibroglandular tissue. . The area labeled B also noted most likely is a stable asymmetric feature at the 12 o'clock position the-was seen previously with no significant progression or change . The cluster of small benign appearing calcifications at near margin of image it very deep right breast towards 12 o'clock again noted and stable.-most likely skin/dermal calcifications given the central lucency Left breast t-no new areas of concern. Prominent vein again noted. Scattered small punctate benign calcifications again noted.. IMPRESSION: Right breast. Area labeled A upper-outer quadrant right breast will benefit from additional spot views and ultrasound-. Subtle additional density here upper-outer quadrant right breast on CC view.. Unimpressive and favor benign feature but noted Left breast-stable left breast follow-up 1 year BI-RAD Category: 0 Need Additional Imaging Evaluation FOLLOW-UP: IMM Immediate Follow-up Recommended (A letter has been sent to the patient regarding results of the study.) Dictated by: Sarkis Camacho MD 05/22/2020 09:50 Sarkis Camacho MD in [place] 05/22/2020 09:50
== END ==
PROVIDERS: PCP Internal Medicine; Visit Provider Internal Medicine Hematology & Oncology
DX: Z12.31 Encounter for screening mammogram for malignant neoplasm of breast (principal)
CPT/HCPCS: 77063; 77067

== ENCOUNTER 2020-05-25 10:40 | Outpatient (CLI) | payer BC, SELFPAY ==
[2020-05-25 11:49] LABS: PHA INR Fingerstick 2.5 (0.9-1.1)
== END 2020-05-25 11:54 | disposition home or self-care (01) ==
LOC: ACC 10:41
PROVIDERS: PCP Internal Medicine; Visit Provider Internal Medicine
DX: Z51.81 Encounter for therapeutic drug level monitoring (principal); Z79.01 Long term (current) use of anticoagulants; I48.91 Unspecified atrial fibrillation
CPT/HCPCS: 85610; 99211; G0463

== ENCOUNTER → 2020-06-02 12:37 | Outpatient (CLI) | payer BC, SELFPAY ==
--- NOTE | 2020-06-02 12:43 | MM_ITS ---
PROCEDURE: MM DIG MAMM DX UNILAT RT CAD Digital Breast Tomosynthesis Included CLINICAL INDICATION: ABN MAMM These COMPARISON: MG DMSB DIG MAMM-SCREEN RUBY from 04/24/2015 MG SCBI MM Dig screening mamm BI w/CAD from 05/11/2018 MG MM DIG SCREENING MAMM BI W/CAD from 05/14/2019 MG MM DIG SCREENING MAMM BI W/CAD from 05/16/2020 US US BREAST RT COMPLETE from 06/02/2020 TECHNIQUE: Standard CC and MLO images and 3D Tomosynthesis was obtained. R2 CAD reviewed. FINDINGS: In the upper outer aspect of the right breast there is a faint opacity with multiple small nodular appearing densities. Similar density also noted in the central aspect of the right breast. The somewhat compress out on the focal spot compression views. No malignant appearing mass or malignant-appearing microcalcification is evident. These may be due to focal small fibroglandular elements. Right breast ultrasound: No cystic or solid lesions demonstrated. No abnormalities evident in the area of concern. IMPRESSION: Probably benign findings. Recommend six-month mammographic and possibly sonographic follow-up BI-RAD Category: 3 Probably Benign Finding Short Term Follow-up FOLLOW-UP: 6M 6Month Follow-up (A letter has been sent to the patient regarding results of the study.) Dictated by: Darrius Marley MD 06/02/2020 14:29 Darrius Marley MD in [place] 06/02/2020 14:29
== END ==
PROVIDERS: PCP Internal Medicine; Visit Provider Internal Medicine
DX: R92.8 Other abnormal and inconclusive findings on diagnostic imaging of breast (principal)
CPT/HCPCS: 76641; 77061; 77065; G0279

== ENCOUNTER 2020-07-04 10:31 | Outpatient (CLI) | payer BC, SELFPAY ==
[2020-07-04 13:52] LABS: PHA INR Fingerstick 2.1 (0.9-1.1)
== END 2020-07-04 13:54 | disposition home or self-care (01) ==
LOC: ACC 10:31
PROVIDERS: PCP Internal Medicine; Visit Provider Internal Medicine
DX: Z51.81 Encounter for therapeutic drug level monitoring (principal); Z79.01 Long term (current) use of anticoagulants
CPT/HCPCS: 85610; 99211; G0463

== ENCOUNTER 2020-08-15 10:41 | Outpatient (CLI) | payer BC, SELFPAY ==
[2020-08-15 11:06] LABS: PHA INR Fingerstick 3.5 (0.9-1.1)
== END 2020-08-15 11:11 | disposition home or self-care (01) ==
LOC: ACC 10:42
PROVIDERS: PCP Internal Medicine; Visit Provider Internal Medicine
DX: Z51.81 Encounter for therapeutic drug level monitoring (principal); Z79.01 Long term (current) use of anticoagulants
CPT/HCPCS: 85610; 99211; G0463

== ENCOUNTER 2020-09-12 10:37 | Outpatient (CLI) | payer BC, SELFPAY ==
[2020-09-12 11:10] LABS: PHA INR Fingerstick 2.5 (0.9-1.1)
== END 2020-10-24 11:30 | disposition home or self-care (01) ==
LOC: ACC 10:37
PROVIDERS: PCP Internal Medicine; Visit Provider Internal Medicine
DX: I48.91 Unspecified atrial fibrillation (principal); Z79.01 Long term (current) use of anticoagulants; Z51.81 Encounter for therapeutic drug level monitoring
CPT/HCPCS: 85610; 99211; G0463

== ENCOUNTER → 2020-10-24 10:33 | Outpatient (CLI) | payer OTHER, SELFPAY ==
[2020-10-24 11:21] LABS: PHA INR Fingerstick 2.7 (0.9-1.1)
== END ==
PROVIDERS: PCP Internal Medicine; Visit Provider Internal Medicine
DX: Z51.81 Encounter for therapeutic drug level monitoring (principal); Z79.01 Long term (current) use of anticoagulants; I48.91 Unspecified atrial fibrillation
CPT/HCPCS: 85610; 99211; G0463

== ENCOUNTER 2020-11-08 13:34 | Outpatient (RCR) | payer OTHER, SELFPAY ==
--- NOTE | 2020-11-08 14:52 | HMH.PTOPEV ---
PT Outpatient Evaluation Rehab PT Outpatient Evaluation Start: 11/08/20 14:42 Freq: Status: Active Protocol: Document 11/08/20 14:42 RHIANNAMANE (Rec: 11/08/20 14:52 LORRAINE [id number]) Electronically Signed By Issa Dhaliwal PT 11/08/20 14:42 Outpatient Therapy Subjective History Subjective History This is the initial Physical therapy vestibular evalution for Jessica Odell. Pt is a 54 y/o female referred to PT for c/o dizziness . Pt reports insidous onset of dizzy spells ~ 5 weeks ago. Pt reports she began noticing her R ear was itching deep down and when she went to lie down she began having vertigo/ spinning. Pt reports for the last 5 weeks spinning has continued at different times. Pt does report that laying down increases complaints Chief Complaint Other Symptom Type Other Symptoms Relieved By Nothing Symptoms Aggravated By Prone,Supine,Bending/Stooping, Physical Activity,Twisting, Walking Prior Functional Limitations None Current Functional Limitations Housework,Driving,Sleeping, Recreation Activity,Stairs, Balance,Bending/Stooping Symptom Description Intermittent Balance Eval Subjective Hx of Complaint Comment dizziness began ~ 5 weeks ago Chief Complaint vertigo Yes Did you feel dizzy, unsteady or faint? No Prior Functional Limitations Prior Functional [place] fully I Current Functional Limitations Comment intermittant vertigo limits ADL's and IADL's Hx of Falls Hx Falls No Gait/Posture Asssessment General Gait Observation Wide Based Gait Assistive Devices None / NA Nystagmus Nystagmus Presence Positional Nystagmus Description Right Direction,Geotropic, Right Torsion,Latency - Immediate Oculomotor Gaze Oculomotor Gaze Nml: Vergence Smooth Pursuit Saccades VOR Cancellation Cover/Uncover Cross Cover Outpatient Therapy Assessment Impair
== END 2020-11-08 13:40 | disposition home or self-care (01) ==
LOC: PT 13:34
PROVIDERS: PCP Internal Medicine; Visit Provider Otolaryngology
DX: R42 Dizziness and giddiness (principal)
CPT/HCPCS: 97163

== ENCOUNTER → 2020-11-20 13:45 | Outpatient (CLI) | payer OTHER, SELFPAY ==
--- NOTE | 2020-11-20 | US_ITS ---
PROCEDURE: MM DIG MAMM DX UNILAT RT CAD Digital Breast Tomosynthesis Included Right breast ultrasound complete with axilla CLINICAL INDICATION: 6 MONTH F/U ABN MAMM COMPARISON: MG MM DIG SCREENING MAMM BI W/CAD from 05/14/2019 MG MM DIG SCREENING MAMM BI W/CAD from 05/16/2020 US US BREAST RT COMPLETE from 06/02/2020 MG MM DIG MAMM DX UNILAT RT CAD from 06/02/2020 TECHNIQUE: Standard images obtained along with spot compression views and 3D tomography FINDINGS: Mostly fatty replaced fibroglandular tissue. There are few scattered small benign-appearing nodular opacities which may be due to small cyst or fibroglandular elements. Right breast ultrasound: No cystic or solid lesions apparent. IMPRESSION: Benign findings. BI-RAD Category: 2 Benign Finding FOLLOW-UP: 6M 6 Month Follow-up. Recommend resume bilateral screening mammogram April 2021 (A letter has been sent to the patient regarding results of the study.) Dictated by: Darrius Marley MD 11/27/2020 13:53 Darrius Marley MD in [place] 11/27/2020 13:53
== END ==
PROVIDERS: PCP Internal Medicine; Visit Provider Internal Medicine
DX: R92.8 Other abnormal and inconclusive findings on diagnostic imaging of breast (principal); Z51.81 Encounter for therapeutic drug level monitoring; Z79.01 Long term (current) use of anticoagulants; I48.91 Unspecified atrial fibrillation
CPT/HCPCS: 76641; 77061; 77065; G0279

== ENCOUNTER 2020-12-05 10:47 | Outpatient (CLI) | payer OTHER, SELFPAY ==
[2020-12-05 16:27] LABS: PHA INR Fingerstick 1.9 (0.9-1.1)
== END 2020-12-05 16:45 | disposition home or self-care (01) ==
LOC: ACC 10:51
PROVIDERS: PCP Internal Medicine; Visit Provider Internal Medicine
DX: Z51.81 Encounter for therapeutic drug level monitoring (principal); Z79.01 Long term (current) use of anticoagulants; I48.91 Unspecified atrial fibrillation
CPT/HCPCS: 85610; 99211; G0463

== ENCOUNTER 2021-01-16 10:48 | Outpatient (CLI) | payer OTHER, SELFPAY ==
[2021-01-16 14:51] LABS: PHA INR Fingerstick 2.4 (0.9-1.1)
== END 2021-01-16 17:00 | disposition home or self-care (01) ==
LOC: ACC 10:49
PROVIDERS: PCP Internal Medicine; Visit Provider Internal Medicine
DX: Z51.81 Encounter for therapeutic drug level monitoring (principal); Z79.01 Long term (current) use of anticoagulants; I48.91 Unspecified atrial fibrillation
CPT/HCPCS: 85610; 99211; G0463

== ENCOUNTER 2021-02-27 10:51 | Outpatient (CLI) | payer OTHER, SELFPAY | END 2021-02-27 11:23 | disposition home or self-care (01) | LOC: ACC 10:51 | PROVIDERS: PCP Internal Medicine; Visit Provider Internal Medicine | DX: Z51.81 Encounter for therapeutic drug level monitoring (principal); Z79.01 Long term (current) use of anticoagulants; I48.91 Unspecified atrial fibrillation | CPT/HCPCS: 85610; 99211; G0463 ==

== ENCOUNTER 2021-03-13 09:30 | Outpatient (CLI) | payer OTHER, SELFPAY ==
[2021-03-13 12:03] LABS: PHA INR Fingerstick 2.6 (0.9-1.1)
== END 2021-03-13 12:04 | disposition home or self-care (01) ==
LOC: ACC 09:31
PROVIDERS: PCP Internal Medicine; Visit Provider Internal Medicine
DX: Z51.81 Encounter for therapeutic drug level monitoring (principal); Z79.01 Long term (current) use of anticoagulants; I48.91 Unspecified atrial fibrillation
CPT/HCPCS: 85610; 99211; G0463

== ENCOUNTER 2021-04-24 10:42 | Outpatient (CLI) | payer SELFPAY ==
[2021-04-24 14:37] LABS: PHA INR Fingerstick 2.2 (0.9-1.1)
== END 2021-04-24 14:39 | disposition home or self-care (01) ==
LOC: ACC 10:43
PROVIDERS: PCP Internal Medicine; Visit Provider Internal Medicine
DX: Z51.81 Encounter for therapeutic drug level monitoring (principal); Z79.01 Long term (current) use of anticoagulants; I48.91 Unspecified atrial fibrillation
CPT/HCPCS: 85610; 99211; G0463

== ENCOUNTER → 2021-05-14 09:56 | Outpatient (CLI) | payer OTHER, SELFPAY | PROVIDERS: Visit Provider Nurse Practitioner | DX: U07.1 COVID-19 (principal) | CPT/HCPCS: C9803; U0003; U0005 ==

== ENCOUNTER → 2021-05-23 13:36 | Outpatient (CLI) | payer OTHER, SELFPAY ==
--- NOTE | 2021-05-23 13:43 | MM_ITS ---
PROCEDURE INFORMATION: Exam: MG Bilateral Screening 3D Mammography Exam date and time: 05/23/2021 1:43 PM Age: 55 years old Clinical indication: Screening mammogram TECHNIQUE: Imaging protocol: Bilateral Screening tomosynthesis and 2D mammography including computer-aided detection (CAD) when performed. COMPARISON: 1. MG MM DIG MAMM DX UNILAT RT CAD 11/20/2020 2:17 PM 2. MG MM DIG MAMM DX UNILAT RT CAD 06/02/2020 12:57 PM 3. MG MM DIG SCREENING MAMM BI W/CAD 05/16/2020 8:03 AM 4. MG MM DIG SCREENING MAMM BI W/CAD 05/14/2019 8:18 AM FINDINGS: MAMMOGRAPHY: Breast composition: There are scattered areas of fibroglandular density. Mass: None. Architectural distortion: No new or suspicious architectural distortion. Calcifications: No new or suspicious calcifications are present Asymmetric density: No new or suspicious asymmetric density is present Skin thickening: None. Axillary adenopathy: None. IMPRESSION: No mammographic evidence of malignancy. Recommend annual screening mammography unless otherwise clinically indicated. ASSESSMENT: BI-RADS category 1: Negative
== END ==
PROVIDERS: PCP Internal Medicine; Visit Provider Internal Medicine
DX: Z12.31 Encounter for screening mammogram for malignant neoplasm of breast (principal)
CPT/HCPCS: 77063; 77067

== ENCOUNTER 2021-06-04 14:59 | Outpatient (CLI) | payer OTHER, SELFPAY ==
--- NOTE | 2021-06-04 15:06 | XR_ITS ---
FINAL REPORT CLINICAL HISTORY: CHEST HEAVINESS,CHEST PAIN,MID BACK PAIN COMPARISON: August 11, 2017 FINDINGS: Two views of the chest were obtained. The heart size and pulmonary vascularity are within normal limits. The mediastinum is normal. No acute pulmonary abnormality is identified. There is no pneumothorax. The bony thorax is intact. IMPRESSION: No active cardiopulmonary disease. Reviewed, Interpreted and Dictated by Shon Zarate III, MD Transcribed by Elias Eldridge Authenticated by Shon Zarate III, MD on 06/04/2021 04:36:48 PM [facility]
[2021-06-04 15:56] LABS: PHA INR Fingerstick 2.5 (0.9-1.1)
== END 2021-06-04 16:05 | disposition home or self-care (01) ==
LOC: RAD 15:02
PROVIDERS: PCP Internal Medicine; Visit Provider Internal Medicine
DX: R07.89 Other chest pain (principal); M54.9 Dorsalgia, unspecified; Z51.81 Encounter for therapeutic drug level monitoring; Z79.01 Long term (current) use of anticoagulants
CPT/HCPCS: 71046; 85610; 99211; G0463

== ENCOUNTER → 2021-06-26 10:59 | Outpatient (CLI) | payer OTHER, SELFPAY ==
--- NOTE | 2021-06-26 | ECG_ITS ---
APPROVED REPORT Exam: Resting ECG HR:66 bpm ECG Measurements Heart Rate 66 AXES AZ 315 P 74 QRSd 106 QRS 106 QT 409 T 15 QTc 423 Conclusion SINUS RHYTHM WITH FIRST DEGREE AV BLOCK RIGHT AXIS DEVIATION [QRS AXIS > 100] NONSPECIFIC T-WAVE ABNORMALITY ABNORMAL ECG Electronically signed by : Martin Khan MD 06/26/2021 17:16:25
== END ==
PROVIDERS: PCP Internal Medicine; Visit Provider Internal Medicine
DX: R07.89 Other chest pain (principal); R00.2 Palpitations
CPT/HCPCS: 93005; 93225; 93226

== ENCOUNTER → 2021-06-28 14:35 | Outpatient (CLI) | payer OTHER, SELFPAY ==
--- NOTE | 2021-06-28 14:57 | CT_ITS ---
FINAL REPORT TECHNIQUE: Postcontrast axial images of the chest were performed in a CTA protocol. This study was performed with techniques to keep radiation doses as low as reasonably achievable, (ALARA). Individualized dose reduction technique using automated exposure control or adjustment of mA and/or kV according to the patient's size were employed. CLINICAL HISTORY: dyspnea, hx of PE, patient states pain in sternal area COMPARISON: 03/02/2017 FINDINGS: The heart is normal in size. No adenopathy is identified. No pleural or pericardial effusion is identified. The thoracic aorta is normal in caliber with no focal aneurysm or dissection identified. There is no filling defect to suggest pulmonary embolism. Mild patchy bilateral pulmonary groundglass opacities are seen favored to represent edema over alveolitis. The images of the upper abdomen demonstrate postoperative changes of cholecystectomy. IMPRESSION: No evidence for PE on this exam. Mild patchy bilateral pulmonary groundglass opacities, favor mild edema over alveolitis. Reviewed, Interpreted and Dictated by Shon Zarate III, MD Transcribed by Zuleika Mendoza Authenticated by Shon Zarate III, MD on 06/28/2021 04:47:20 PM [facility]
[2021-06-28 15:06] LABS: Blood Urea Nitrogen 8 mg/dl (7-17); Estimated Glomerular Filt Rate 86 ml/min (>60); GFR (African American) 104 ML/MIN (>60)
== END ==
PROVIDERS: PCP Internal Medicine; Visit Provider Internal Medicine
DX: R06.00 Dyspnea, unspecified (principal); Z86.711 Personal history of pulmonary embolism
CPT/HCPCS: 36415; 71275; 82565; 84520; Q9967

== ENCOUNTER → 2021-07-03 10:43 | Outpatient (CLI) | payer OTHER, SELFPAY ==
--- NOTE | 2021-07-03 10:46 | CA_ITS ---
APPROVED REPORT EXAM: Comprehensive 2D, Doppler, and color-flow Echocardiogram Scoop Driver: Shari Osorio RT(R) Ht: 5 ft 5 in Wt: 282lbs BSA: 2.29 BP: 135/70 mmHg Indications: CP, palpitaitons, HTN, ANDERSON, near syncope, ABN EKG, dizziness, first degree block, obesity 2D Dimensions LVOT 1.94 cm (M/F) 1.5-2.5 LVEF (Parra's) 76.30 % F: 54 - 74 LV Volume 75.40 mL F: 46 - 106 LV Volume Index 32.92 mL/m2 F: 29 - 61 LA Volume 41.00 mL LA Volume Index 17.90 mL/m2 (M/F) 16-34 M-Mode Dimensions RVDd 2.15 cm (0.9-2.6) LA Diam 3.59 cm (1.9-4.0) LVDd 4.94 cm (3.5-5.7) Ao Diam 1.97 cm (2.0-3.7) LVDs 3.58 cm (3.5-5.7) IVSd 0.72 cm (0.6-1.1) PWd 0.82 cm (0.6-1.1) EF (Teich) 53.30% FS 27.50% EDV (Teich) 115.00 mL ESV (Teich) 53.70 mL LV Diastology E Decel Time 197.00 (160-240 msec) E/A Ratio 1.4 MED E' 9.60 (< 7 cm/sec) E'/MED E' Ratio 13.49 (>14) Aortic Valve LVOT Max 156.00 (70-110 cm/s) LVOT VTI 32.64 cm AoV Peak Karthik. 208.00 (50-130 cm/s) AI PHT 511.00 ms AO Peak GR. 17.40 mmHg AO Mean GR. 8.50 (<5 mmHg) AO VTI 41.20 (18-25 cm) EJ (VTI) 2.34 (2.5-4.5 cm2) Mitral Valve MV E Max Karthik. 129.00 (40-130 cm/s) MV A Velocity 90.00 (40-130 cm/s) E/A Ratio 1.44 MV Decel. Time 197.00 (160-240 ms) MV PHT 58.00 ms Tricuspid Valve TR P. Velocity 305.00 cm/s RAP Estimate 10.00 mmHg RVSP 47.30 mmHg Left Ventricle Left atrium is mildly enlarged, left ventricle is normal size, mild concentric left ventricular hypertrophy, estimated ejection fraction 55% with no regional wall motion abnormality, diastolic parameters are inconclusive. Right Ventricle Right atrium and right ventricle qualitatively mildly enlarged with normal contractility. Aortic Valve Aortic valve is thickened and calcified with mean gradient 8 aortic valve is 11 mmHg, valve area is 2.0 cm??? represents mild aortic stenosis, there is mild aortic insufficiency. Mitral Valve Mitral valve leaflets are minimally thickened, there is no mitral stenosis, there is mild mitral regurgitation. Tricuspid Valve Tricuspid valve grossly normal, there is mild tricuspid regurgitation, calculated right ventricular systolic pressure is 40 mmHg. Pulmonic Valve Pulmonic valve is poorly visualized. Great Vessels Aortic root is normal size. Inferior vena cava normal size with normal inspiratory collapse. Pericardium No significant pericardial effusion. Conclusion 1. Mild biatrial enlargement, normal left ventricular size, mild concentric left ventricular hypertrophy, visually estimated ejection fraction 55% with no regional wall motion abnormality, diastolic parameters are inconclusive. 2. Mildly enlarged right ventricle with normal contractility. 3. Thickened and calcified aortic valve with mild aortic stenosis and mild insufficiency. 4. Mild mitral and tricuspid regurgitation, calculated right ventricular systolic pressure is 40 mmHg. 5. No significant pericardial effusion. 6. Inferior vena cava is normal size with normal spectral collapse. Electronically signed by : Elvin Garrido MD 07/03/2021 19:23:26
== END ==
PROVIDERS: PCP Internal Medicine; Visit Provider Internal Medicine
DX: R07.89 Other chest pain (principal); R00.2 Palpitations
CPT/HCPCS: 93306

== ENCOUNTER 2021-07-04 07:07 | Day surgery (SDC) | payer OTHER, SELFPAY ==
[2021-07-04] VITALS (7 sets, daily range): BP systolic 142–160; BP diastolic 76–94; PULSE 71–88; RESP 18; TEMP 36.3–36.4; O2SAT 96–99; BMI 46.9
--- NOTE | 2021-07-04 | IR_ITS ---
APPROVED REPORT Patient Location: Outpatient Radio News Writer: HAM Wilder RT (R) PROCEDURES 1. Pocket formation for Permanent Pacemaker Placement. 2. Placement of an atrial sensing and pacing coil into the right atrial appendage. 3. Placement of a ventricular sensing and pacing coil in the right ventricular apex. 4. Permanent Pacemaker Placement. INDICATION Symptomatic Bradycardia, Second degree heart block Informed consent was obtained prior to the procedure. COMPLICATIONS None Estimated Blood Loss: Less than 10 ML TECHNIQUE 1% Lidocaine with epinephrine used to anesthetized the left anterior aspect of the chest. Scalpel was used to make the initial cutaneous incision while electrocautery was used to dissect down tinto the fascia. The fascia was lifted off the pectoralis muscle and digitally manipulated creating a pocket for the pacemaker. The patient was then placed in Trendelenburg position and the subclavian vein was accessed twice via the Selinger technique, there are two wires in the vein. A 6 Malian sheath was placed under fluoroscopic guidance into the subclavian vein over one of the wires while keeping the other wire in place within the subclavian vein. The dilator was removed from the sheath. Using fluoroscopic guidance, the ventricular lead was placed into the right ventricular apex, screwed and secured into place. Electronic interrogation proved acceptable thresholds and voltage within the lead. Using 3-0 silk, the ventricular lead was then secured into place. Lead was secured to the facia using the 3-0 silk. Following this, the sheath was pealed away. An additional 6 Malian fresh sheath and dilator was placed over the existing wire. Using fluoroscopic guidance, the atrial lead was the placed into the right atrial appendage and screwed and secured in place. Electrical interrogation demonstrated acceptable thresholds and voltage number. The atrial lead was then secured into place using 3-0 silk. 1 gram of Ancef was used to flush the pocket. Following the pacemaker generator being secured to the fascia and in place, Monocryl was used to close the subcutaneous layers while evita were used to close the cutaneous layer. A pressure dressing was placed and the patient was transferred to the postop holding area in stable condition for postoperative care. INTERROGATION Generator Model number: Earbits BELEN [place] IS-1 L311 Generator Serial number: [id number] Atrial lead model number: 7840 Atrial lead serial number: [id number] P-wave: 3.0 MV Impedence: 600 OHLMS Threshold: 1.2V @ 0.4 MS Right Ventricular lead model number: 7841 Left Ventricular lead serial number: [id number] R-wave: 20.0 MV Impedence: 950 OHLMS Threshold: 0.4 V @ 0.4 MS Pacing Parameters: Mode: DDDR Base/Max Track: 60 / 130 PPM No diaphragmatic stimulation at 10 volts. IMPRESSION 1. Successful Pocket formation for Permanent Pacemaker Placement. 2. Successful Placement of an atrial sensing and pacing coil into the right atrial appendage. 3. Successful Placement of a ventricular sensing and pacing coil in the right ventricular apex. 4. Successful Permanent Pacemaker Placement. PLAN 1. Post Op Wound Care Electronically signed by : Jese Bansal MD 07/05/2021 12:37:18
[2021-07-04 07:16] LABS: Coronavirus 19, PCR Not Detected (NotDetected); Influenza A, PCR Not Detected (NotDetected); Influenza B, PCR Not Detected (NotDetected)
--- NOTE | 2021-07-04 08:52 | XR_ITS ---
FINAL REPORT CLINICAL HISTORY: Confirm pacemaker/AID placement COMPARISON: June 04, 2021 FINDINGS: A single portable view of the chest was obtained. There is a new left subclavian pacemaker. The heart size and pulmonary vascularity are within normal limits. The mediastinum is within normal limits. No acute pulmonary abnormality is identified. There is no pneumothorax. The bony thorax is intact. IMPRESSION: Left subclavian pacemaker. No pneumothorax. Reviewed, Interpreted and Dictated by Shon Zarate III, MD Transcribed by Elias Eldridge Authenticated by Shon Zarate III, MD on 07/04/2021 01:24:09 PM [facility]
--- NOTE | 2021-07-04 09:45 | P.PN_ITS ---
[facility] Anesthesia Checklist - Patient Identification Patient Identification: Arm Band - Structural Data Admitted From: Home Planned Operative Procedure/s: Dual Chamber Pacemaker Consent for Planned Operative Procedure(s) Verified: Yes Verified Documents: Surgical Consent, History and Physical - NPO Status Verified Time NPO: 00:00 - Additional verifications Anesthesia Reactions: No - Airway Assessment C-Spine Mobility Assessed: Yes (mp2) TMJ Mobility Assessed: Yes Dentition: Good Dentition - Neurological Assessment Level of Consciousness: Awake, Alert - Anesthesia Plan Anesthesia Risk discussed: Yes Anesthesia Plan: Verified ASA Class: III Anesthesia Type: MAC [facility] History I have reviewed the patient's past medical history: Yes Medical History: Reports:: Deep Vein Thrombosis, Depression, Heart Murmur, Hyperlipidemia, Hypertension, Palpitations Denies:: Cancer, Diabetes Mellitus Type 1, Diabetes Mellitus Type 2, Internal Pacemaker, MRSA, Seizures *Have you ever received a pneumonia vaccine?: Yes *Have you received a flu vaccine this season?: Yes Anesthesia experience/problems:: nac Other Surgeries: Yes: Appendectomy, Cancer Surgery, Cardiac Catheterization, Cholecystectomy, Colonoscopy, EGD, Hysterectomy-Total, Hysterectomy-Partial, Tubal Ligation, Other. No: Pacemaker Amputation: No Fractures: No - *Social History Smoking Status: Never smoker Alcohol Intake: never Substance Use Type: denies use *Occupational Status:: unemployed Housing: house Household Members: spouse *Travel in the last 8 weeks: None - Psychiatric History Pschychiatric History:: Reports:: Depression Family Hx:: Heart Attack, Cancer, Diabetes
[2021-07-04 09:48] LABS: Basophils # 0.1 K/mm3 (0-0.2); Basophils % 1.5 % (0.1-2.0); Eosinophils # 0.2 K/mm3 (0.0-0.4); Eosinophils % 3.7 % (0.1-12.0); Hematocrit 40.8 % (37.0-47.0); Lymphocytes # 2.2 K/mm3 (0.7-4.5); Lymphocytes % 43.6 % (10-50); Mean Corpuscular HGB Conc 31.9 g/dL (31.8-35.4); Mean Corpuscular Hemoglobin 30.3 pg (27.0-31.2); Mean Platelet Volume 7.9 fl (7.4-10.4); Monocytes # 0.4 K/mm3 (0.1-1.0); Monocytes % 7.8 % (1.7-9.3); Neutrophils # 2.2 K/mm3 (1.8-7.8); Neutrophils % 43.5 % (37.0-80.0); Platelet Count 297 K/mm3 (142-424); Red Blood Count 4.29 M/mm3 (4.20-5.40); Red Cell Distribution Width 14.9 % (11.5-17.5)
[2021-07-04 10:07] LABS: Blood Urea Nitrogen 7 mg/dl (7-17); Calcium 8.8 mg/dl (8.4-10.2); Carbon Dioxide 29 mmol/L (22.0-30.0); Chloride 105 mmol/L (98-107); Creatinine Clearance Estimated 80 mL/min (50-200); Estimated Glomerular Filt Rate 86 ml/min (>60); GFR (African American) 104 ML/MIN (>60); Glucose 106 mg/dl (74-100); Sodium 139 mmol/L (136-145)
[2021-07-04 10:45] LABS: INR 1.02 (0.9-1.1); Prothrombin Time 11.5 seconds (10.1-12.5)
== END 2021-07-04 13:58 | disposition home or self-care (01) ==
LOC: CATHLAB 07:09
PROVIDERS: PCP Internal Medicine; Visit Provider Internal Medicine
DX: I44.1 Atrioventricular block, second degree (principal); I45.5 Other specified heart block; R07.89 Other chest pain; R55 Syncope and collapse; R94.31 Abnormal electrocardiogram [ECG] [EKG]; Z79.01 Long term (current) use of anticoagulants; Z86.718 Personal history of other venous thrombosis and embolism; I10 Essential (primary) hypertension; Z20.822 Contact with and (suspected) exposure to COVID-19
CPT/HCPCS: 33208; 71045; 80048; 85025; 85610; C1785; C1898; C9803; J2704; U0003; U0005

== ENCOUNTER 2021-07-16 10:33 | Outpatient (CLI) | payer OTHER, SELFPAY ==
[2021-07-16 14:01] LABS: PHA INR Fingerstick 1.8 (0.9-1.1)
== END 2021-07-16 14:03 | disposition home or self-care (01) ==
LOC: ACC 10:34
PROVIDERS: PCP Family Medicine; Visit Provider Internal Medicine
DX: Z51.81 Encounter for therapeutic drug level monitoring (principal); Z79.01 Long term (current) use of anticoagulants; I48.91 Unspecified atrial fibrillation
CPT/HCPCS: 85610; 99211; G0463

== ENCOUNTER 2021-10-17 10:57 | Outpatient (CLI) | payer OTHER, SELFPAY ==
[2021-10-17 12:56] LABS: PHA INR Fingerstick 2.8 (0.9-1.1)
== END 2021-10-17 13:03 | disposition home or self-care (01) ==
LOC: ACC 10:57
PROVIDERS: PCP Internal Medicine; Visit Provider Internal Medicine
DX: Z51.81 Encounter for therapeutic drug level monitoring (principal); Z79.01 Long term (current) use of anticoagulants; I48.91 Unspecified atrial fibrillation
CPT/HCPCS: 85610; 99211; G0463

== ENCOUNTER 2021-11-27 10:48 | Outpatient (CLI) | payer OTHER, SELFPAY ==
[2021-11-27 13:27] LABS: PHA INR Fingerstick 2.2 (0.9-1.1)
== END 2021-11-27 13:38 | disposition home or self-care (01) ==
LOC: ACC 10:48
PROVIDERS: PCP Internal Medicine; Visit Provider Internal Medicine
DX: Z51.81 Encounter for therapeutic drug level monitoring (principal); Z79.01 Long term (current) use of anticoagulants; I48.91 Unspecified atrial fibrillation
CPT/HCPCS: 85610; 99211; G0463

== ENCOUNTER → 2021-12-31 14:40 | Outpatient (CLI) | payer OTHER, SELFPAY ==
[2021-12-31 14:52] LABS: Adenovirus F 40/41, stool Not Detected (NotDetected); Astrovirus Not Detected (NotDetected); Campylobacter Not Detected (NotDetected); Clostridium Difficile A/B, PCR Not Detected (NotDetected); Cryptosporidium Not Detected (NotDetected); Cyclospora Cayetanesis Not Detected (NotDetected); Entamoeba histolytica Not Detected (NotDetected); Enteroaggregative E coli Not Detected (NotDetected); Enteropathogenic E coli Not Detected (NotDetected); Enterotoxigenic E coli Not Detected (NotDetected); Giardia lamblia Not Detected (NotDetected); Norovirus Not Detected (NotDetected); Plesimonas Shigalloides, PCR Not Detected (NotDetected); Rotavirus A Not Detected (NotDetected); Salmonella, PCR Not Detected (NotDetected); Sapovirus Not Detected (NotDetected); Shiga-like toxin E coli Not Detected (NotDetected); Shigella Enterovasive E coli Not Detected (NotDetected); Vibrio Cholerae Not Detected (NotDetected); Vibrio, PCR Not Detected (NotDetected); Yersinia Entercolitica, PCR Not Detected (NotDetected)
== END ==
PROVIDERS: PCP Internal Medicine; Visit Provider Internal Medicine
DX: R19.7 Diarrhea, unspecified (principal)
CPT/HCPCS: 87205; 87507

== ENCOUNTER → 2022-01-09 08:23 | Outpatient (CLI) | payer OTHER, SELFPAY ==
--- NOTE | 2022-01-09 08:26 | CT_ITS ---
FINAL REPORT TECHNIQUE: After the administration of intravenous contrast, axial images were obtained through the abdomen and pelvis by computed tomography. This study was performed with technique to keep radiation doses as low as reasonably achievable, (ALARA). Individualized dose reduction techniques using automated exposure control or adjustment of the MA and/or KV according to the patient's size were employed. CLINICAL HISTORY: DIVERTICULITIS, LLQ PAIN COMPARISON: 03/06/2020 FINDINGS: Abdomen: The lung bases demonstrate a small cluster of densities in the posterior right lung base, favor postinflammatory. This is best seen on image 2 of series 3. The liver is mildly fatty infiltrated. Patient is status post cholecystectomy. There are calcified granulomas in the spleen. Spleen is otherwise unremarkable. The adrenals are normal. The pancreas is unremarkable. The kidneys enhance appropriately. The aorta is normal in caliber. There is no free fluid or adenopathy. Pelvis: The appendix is not identified. The urinary bladder is unremarkable. There is no free fluid or adenopathy. IMPRESSION: No acute intra-abdominal process. No evidence of diverticulitis. Reviewed, Interpreted and Dictated by Mack Lopez MD Transcribed by Zuleika Mendoza Authenticated and [facility]
== END ==
PROVIDERS: PCP Internal Medicine; Visit Provider Internal Medicine Hematology & Oncology
DX: K57.92 Diverticulitis of intestine, part unspecified, without perforation or abscess without bleeding (principal)
CPT/HCPCS: 74176

== ENCOUNTER 2022-02-14 10:35 | Outpatient (CLI) | payer OTHER, SELFPAY ==
[2022-02-14 14:18] LABS: PHA INR Fingerstick 3.8 (0.9-1.1)
== END 2022-02-14 14:21 ==
LOC: ACC 10:36
PROVIDERS: PCP Internal Medicine; Visit Provider Internal Medicine
DX: Z51.81 Encounter for therapeutic drug level monitoring (principal); Z79.01 Long term (current) use of anticoagulants; I48.91 Unspecified atrial fibrillation
CPT/HCPCS: 85610; 99211; G0463

== ENCOUNTER 2022-02-22 10:42 | Outpatient (CLI) | payer OTHER, SELFPAY ==
[2022-02-22 13:27] LABS: PHA INR Fingerstick 2.2 (0.9-1.1)
== END 2022-02-22 13:28 ==
LOC: ACC 10:42
PROVIDERS: PCP Internal Medicine; Visit Provider Internal Medicine
DX: Z51.81 Encounter for therapeutic drug level monitoring (principal); Z79.01 Long term (current) use of anticoagulants; I48.91 Unspecified atrial fibrillation
CPT/HCPCS: 85610; 99211; G0463

== ENCOUNTER 2022-03-18 10:47 | Outpatient (CLI) | payer OTHER, SELFPAY ==
[2022-03-18 11:07] LABS: PHA INR Fingerstick 2.4 (0.9-1.1)
== END 2022-03-18 11:10 ==
LOC: ACC 10:47
PROVIDERS: PCP Internal Medicine; Visit Provider Internal Medicine
DX: Z51.81 Encounter for therapeutic drug level monitoring (principal); Z79.01 Long term (current) use of anticoagulants; I48.91 Unspecified atrial fibrillation
CPT/HCPCS: 85610; 99211; G0463

== ENCOUNTER 2022-04-29 10:53 | Outpatient (CLI) | payer OTHER, SELFPAY ==
[2022-04-29 11:59] LABS: PHA INR Fingerstick 2.1 (0.9-1.1)
== END 2022-04-29 12:00 ==
PROVIDERS: PCP Internal Medicine; Visit Provider Internal Medicine
DX: Z51.81 Encounter for therapeutic drug level monitoring (principal); Z79.01 Long term (current) use of anticoagulants; I48.91 Unspecified atrial fibrillation
CPT/HCPCS: 85610; 99211; G0463

== ENCOUNTER → 2022-05-06 06:14 | Outpatient (CLI) | payer OTHER, SELFPAY ==
--- NOTE | 2022-05-06 06:15 | CA_ITS ---
APPROVED REPORT EXAM: Comprehensive 2D, Doppler, and color-flow Echocardiogram Blast Setter: Janett Cruz CRT Ht: 5 ft 5 in Wt: 269lbs BSA: 2.24 BP: 148/82 mmHg Indications: Chest Pain, Shortness of Breath, Obesity, Palpitations, Hypertension/HDD, Pacemaker, hx DVT, ECHO TO R/O PPM INDUCED CM 2D Dimensions LVOT 1.62 cm (M/F) 1.5-2.5 LA Volume 46.60 mL LA Volume Index 20.30 mL/m2 (M/F) 16-34 M-Mode Dimensions RVDd 3.60 cm (0.9-2.6) LA Diam 3.23 cm (1.9-4.0) LVDd 3.56 cm (3.5-5.7) Ao Diam 2.89 cm (2.0-3.7) LVDs 2.63 cm (3.5-5.7) IVSd 1.50 cm (0.6-1.1) PWd 1.10 cm (0.6-1.1) EF (Teich) 52.30% FS 26.10% EDV (Teich) 53.00 mL TAPSE 1.52 (<1.7) ESV (Teich) 25.30 mL LV Diastology E Decel Time 213.00 (160-240 msec) E/A Ratio 1.34 MED E' 4.80 (< 7 cm/sec) MED A' 8.30 cm/s E'/MED E' Ratio 24.00 (>14) LAT E' 8.90 (<10 cm/sec) LAT A' 11.20 cm/s E/LAT E' Ratio 12.94 (>14) Aortic Valve LVOT Max 176.00 (70-110 cm/s) LVOT VTI 40.26 cm AoV Peak Karthik. 272.00 (50-130 cm/s) AI PHT 468.00 ms AO Peak GR. 29.50 mmHg AO Mean GR. 15.90 (<5 mmHg) AO VTI 51.42 (18-25 cm) EJ (VTI) 1.61 (2.5-4.5 cm2) Mitral Valve MV A Velocity 86.00 (40-130 cm/s) E/A Ratio 1.34 MV Decel. Time 213.00 (160-240 ms) Pulmonary Valve PV Peak Velocity 218.00 (50-150 cm/s) Tricuspid Valve TR P. Velocity 291.00 cm/s RAP Estimate 10.00 mmHg RVSP 44.00 mmHg Left Ventricle Left atrium is mildly enlarged, left ventricle is normal size mild concentric left ventricular hypertrophy, estimated ejection fraction 55% with no regional wall motion abnormality, diastolic parameters are inconclusive. Right Ventricle Right atrium and right ventricle are mildly enlarged with normal contractility, pacemaker leads in the right ventricle. Aortic Valve Aortic valve is thickened and calcified, mean gradient across aortic valve is 16 mmHg, valve area is 1.6 cm??? represents mild aortic stenosis, there is mild aortic insufficiency. Mitral Valve Mitral valve is grossly normal, there is mild mitral regurgitation. Tricuspid Valve Tricuspid grossly normal, there is mild tricuspid regurgitation, tricuspid regurgitation jet velocity is inadequate for calculation of the right ventricular systolic pressure. Pulmonic Valve Pulmonic valve is poorly visualized. Great Vessels Aortic root is normal size. Inferior vena cava is normal size with normal inspiratory collapse. Pericardium No significant pericardial effusion noted. Conclusion 1. Mild biatrial enlargement, normal left ventricular size, mild concentric left ventricular hypertrophy, estimated ejection fraction 55% with no regional wall motion abnormality, diastolic parameters are inconclusive. 2. Mildly enlarged right ventricle with normal contractility. 3. Thickened and calcified aortic valve with mild aortic stenosis and mild aortic insufficiency. 4. Mild mitral and tricuspid regurgitation. 5. No significant pericardial effusion. 6. Inferior vena cava is normal size with normal inspiratory collapse. Electronically signed by : Elvin Garrido MD 05/07/2022 06:15:39
--- NOTE | 2022-05-06 06:15 | CA_ITS ---
APPROVED REPORT Exam: Pharmacologic Technologist: Mony Polk Ht: 5 ft 5 in Wt: 267 lbs BSA: 2.24 m2 HR: 70 bpm BP: 152/72 mmHg Indications: Palpitations Medical History Medications: Warfarin,,,,, Metoprolol,,,,, Prilosec,,,,, PaXIL,,,,, SpirOnolactone,,,,, Furosemide,,,,, Stress Test Details Test: LEXISCAN HR Resting HR: 74 bpm Max Heart Rate (APMHR): 162.152418 bpm Max HR Achieved: 88 bpm Target HR (85% APMHR): 137.700611 bpm % of APMHR: 54.32 Recovery HR: 76 bpm BP Resting BP: 152.0/72.0 mmHg Max BP: 161.0/81.0 mmHg Recovery BP: 147.0/65.0 mmHg ECG Resting ECG: A-V Pacing with capture. Clinical Reason for Termination: Completed Protocol Exercise duration: 04:00 min Highest Stage Achieved: Exercise capacity: 1.0 METs Stress ECG Conclusion Non-diagnostic lexiscan stress test. Patient received the infusion per protocol without chest pain, ST segment changes or arrhythmias. See the nuclear report for further information. Test Summary REST . . . . . . . Resting REST 19:23 . . 74 . 152/ 72 . . Stage 1 . . . . . . . Myoview Injected Stage 1 01:00 . . 86 . . . . Stage 2 01:00 . . 82 . . . . Stage 3 01:00 . . 82 . 161/ 81 . . Stage 4 01:00 . . 79 . 151/ 83 . Stop exercise at 04:00 RECOVERY 01:00 . . 82 . . . . RECOVERY 02:00 . . 80 . . . . RECOVERY 03:00 . . 76 . . . . RECOVERY 04:00 . . 77 . 147/ 65 . . RECOVERY 04:37 . . 0 . 147/ 65 . . Electronically signed by : Elvin Garrido MD 05/06/2022 17:59:55
--- NOTE | 2022-05-06 06:15 | NM_ITS ---
APPROVED REPORT Exam: Nuclear Stress Test Indication: Chest pain, Palpitations, Fatigue, Pacemaker, Family history Patient Location: Outpatient Stress Tech: Mony Polk MD Tech:Monique Lee, ARRT, RT (R)(N) Ht: 5 ft 5 in Wt: 267 lbs Bra Size: 42B HR: 74 bpm BP: 152/72 mmHg BSA: 2.24 m2 TID: 1.12 BMI: 44.4 History: Chest pain, Palpitations, Fatigue, Pacemaker, Family history Procedure: Patient received a 0.4 mg of intravenous Lexiscan, resting heart rate 74 bpm, resting blood pressure 152/72 mmHg, with Lexiscan maximum heart rate achived was 88 bpm which is Less than 85 % of the maximum predicted heart rate and blood pressure was 161/81 mmHg. With Lexiscan, patient denied any complaint of chest pain. Electrocardiogram Resting electrocardiogram showed electronically paced rhythm, with Lexiscan less than 1.[address] segment depression noted from the baseline EKG. Cardiac Stress and Resting SPECT Images: Cardiac Stress and Resting SPECT images were obtained using technetium 99m Myoview 29.6 mCi stress and 10.82 mCi at rest. Patient unable to lay on stomach for prone images. Gated SPECT for analysis of segmental wall motion and calculation of the ejection fraction also done. Cardiac stress and rest SPECT may show reversible ischemia involving the anterior apical and apical wall, computer derived ejection fraction 52% with abnormal septal motion, right ventricle is normal size and contractility. Conclusion: 1. The EKG portion of the Lexiscan is nondiagnostic. 2. Scintigraphic evidence of reversible ischemia involving the anterior and apical wall, computer derived ejection fraction is 52% with abnormal septal motion, right ventricle is normal size and contractility. 3. Abnormal Lexiscan Myoview study. Electronically signed by : Elvin Garrido MD 05/06/2022 18:02:38
--- NOTE | 2022-05-06 08:27 | HMH.ITSHM ---
Current Home Medications as stated by this patient Jessica Odell or specialty sales representative. []WARFARIN SPIRONOLACTONE PAROXETINE OMEPRAZOLE METOPROLOL FUROSEMIDE
== END ==
PROVIDERS: PCP Internal Medicine; Visit Provider Nurse Practitioner Family
DX: R06.00 Dyspnea, unspecified (principal); R07.89 Other chest pain; Z95.0 Presence of cardiac pacemaker
CPT/HCPCS: 78452; 93017; 93306; A9502; J2785

== ENCOUNTER → 2022-05-09 09:53 | Outpatient (CLI) | payer OTHER, SELFPAY ==
[2022-05-09 10:30] LABS: Chloride 107 mmol/L (98-107)
[2022-05-09 10:31] LABS: Sodium 139 mmol/L (136-145)
[2022-05-09 10:33] LABS: Alanine Aminotransferase 18 U/L (12-78); Alkaline Phosphatase 41 U/L (38-126); Aspartate Amino Transferase 43 U/L (14-36); Bilirubin,Direct 0.4 mg/dl (0.0-0.4); Bilirubin,Indirect 0.6 mg/dL (0.0-0.9); Bilirubin,Unconjugated 0.5 mg/dL (0.0-1.1); Blood Urea Nitrogen 10 mg/dl (7-17); Carbon Dioxide 24 mmol/L (22.0-30.0); Cholesterol 233 mg/dl (140-200); Estimated Glomerular Filt Rate 86 ml/min (>60); GFR (African American) 104 ML/MIN (>60); Triglycerides 134 mg/dl (30-150); VLDL Cholesterol 27 mg/dL (0-40)
[2022-05-09 10:34] LABS: Albumin Level 4.1 g/dl (3.5-5.0); Calcium 8.6 mg/dl (8.4-10.2); Chol/HDL Ratio 4.4 (1-3.5); Glucose 105 mg/dl (74-100); HDL Cholesterol 53 mg/dl (40-60); Magnesium 1.8 mg/dl (1.6-2.3)
[2022-05-09 10:45] LABS: Direct LDL Cholesterol 130.16 mg/dL (100-129)
[2022-05-09 10:48] LABS: Basophils # 0.1 K/mm3 (0-0.2); Basophils % 1.4 % (0.1-2.0); Eosinophils # 0.1 K/mm3 (0.0-0.4); Hematocrit 40.3 % (37.0-47.0); Hemoglobin 13.1 g/dL (12.2-16.2); Lymphocytes # 1.9 K/mm3 (0.7-4.5); Lymphocytes % 39.7 % (10-50); Mean Corpuscular HGB Conc 32.5 g/dL (31.8-35.4); Mean Corpuscular Hemoglobin 28.9 pg (27.0-31.2); Mean Corpuscular Volume 88.8 fl (81-99); Mean Platelet Volume 7.9 fl (7.4-10.4); Monocytes # 0.3 K/mm3 (0.1-1.0); Monocytes % 6.2 % (1.7-9.3); Neutrophils # 2.4 K/mm3 (1.8-7.8); Neutrophils % 49.7 % (37.0-80.0); Platelet Count 311 K/mm3 (142-424); Red Blood Count 4.54 M/mm3 (4.20-5.40); White Blood Count 4.8 K/mm3 (4.8-10.8)
[2022-05-09 11:19] LABS: Free T4 (Free Thyroxine) 0.85 ng/dl (0.78-2.19)
== END ==
PROVIDERS: PCP Internal Medicine; Visit Provider Physician Assistant
DX: R06.00 Dyspnea, unspecified (principal); R07.89 Other chest pain; R00.2 Palpitations; I10 Essential (primary) hypertension; R94.31 Abnormal electrocardiogram [ECG] [EKG]; Z86.718 Personal history of other venous thrombosis and embolism; Z95.0 Presence of cardiac pacemaker
CPT/HCPCS: 36415; 80048; 80061; 80076; 83735; 84439; 84443; 85025

== ENCOUNTER 2022-05-13 09:15 | Day surgery (SDC) | payer OTHER, SELFPAY ==
[2022-05-13] VITALS (15 sets, daily range): BP systolic 128–202; BP diastolic 70–99; PULSE 70–80; RESP 12–20; TEMP 36.9; O2SAT 94–98; BMI 44.6
--- NOTE | 2022-05-13 07:06 | IR_ITS ---
APPROVED REPORT Patient Location: Outpatient Machine Set Up Technician: HAM Godinez RT (R) PROCEDURES Left heart catheterization Left ventriculogram Selective coronary angiogram INDICATION Abnormal Myoview, Angina pectoris, Informed consent was obtained prior to the procedure. COMPLICATIONS NONE Estimated Blood Loss: LESS THAN 10 ML TECHNIQUE One percent lidocaine used to anesthetize the right anterior aspect of the wrist. The right radial artery was accessed via the Seldinger technique. A 6 [place] sheath was placed in the right radial artery. 2.5 mg of verapamil, 800 mcg of nitroglycerin, 1mg Lidocaine and 5000 U Heparin were given through the arterial sheath. The papa catheter was also used to perform left heart catheterization, left ventriculogram and selective coronary angiogram. At the end of the procedure the sheath was removed good hemostasis was achieved using Traclet band, patient was transferred to the postop holding area in stable condition. ANGIOGRAPHIC RESULTS The left main artery Normal The left anterior descending artery Normal The circumflex artery Normal The right coronary artery Dominant normal The FREEMAN ventriculogram reveals Preserved 55 to 60% The left ventricular end-diastolic pressure 25 mmHg IMPRESSION Normal coronary arteries Normal ejection fraction Elevated LVEDP consistent with diastolic dysfunction PLAN 1. Treatment of diastolic dysfunction 2. Continue annual echocardiogram given patient has 100% V pacing Electronically signed by : Jese Bansal MD 05/13/2022 11:40:30
[2022-05-13 10:44] LABS: INR 1.13 (0.9-1.1); Prothrombin Time 12.1 seconds (10.1-12.5)
== END 2022-05-13 14:45 | disposition home or self-care (01) ==
PROVIDERS: PCP Internal Medicine; Visit Provider Internal Medicine
DX: R94.39 Abnormal result of other cardiovascular function study (principal); I20.8 Other forms of angina pectoris; Z79.899 Other long term (current) drug therapy; Z79.01 Long term (current) use of anticoagulants; Z95.0 Presence of cardiac pacemaker; Z86.718 Personal history of other venous thrombosis and embolism; I10 Essential (primary) hypertension
CPT/HCPCS: 85610; 93458; 99152; C1725; C1760; C1769; J1644; Q9967

== ENCOUNTER 2022-06-10 10:35 | Outpatient (CLI) | payer OTHER, SELFPAY ==
[2022-06-10 11:45] LABS: PHA INR Fingerstick 2.7 (0.9-1.1)
== END 2022-06-10 11:48 ==
LOC: ACC 10:35
PROVIDERS: PCP Internal Medicine; Visit Provider Internal Medicine
DX: Z51.81 Encounter for therapeutic drug level monitoring (principal); Z79.01 Long term (current) use of anticoagulants; I48.91 Unspecified atrial fibrillation
CPT/HCPCS: 85610; 99211; G0463

== ENCOUNTER → 2022-06-17 11:00 | Outpatient (CLI) | payer OTHER, SELFPAY ==
[2022-06-17 12:14] LABS: Basophils # 0.1 K/mm3 (0-0.2); Basophils % 0.7 % (0.1-2.0); Eosinophils # 0.1 K/mm3 (0.0-0.4); Eosinophils % 0.9 % (0.1-12.0); Hemoglobin 13.7 g/dL (12.2-16.2); Lymphocytes # 2.4 K/mm3 (0.7-4.5); Mean Corpuscular HGB Conc 33.5 g/dL (31.8-35.4); Mean Corpuscular Hemoglobin 29.8 pg (27.0-31.2); Mean Corpuscular Volume 89.1 fl (81-99); Mean Platelet Volume 7.6 fl (7.4-10.4); Monocytes # 0.7 K/mm3 (0.1-1.0); Monocytes % 7.3 % (1.7-9.3); Neutrophils % 68.1 % (37.0-80.0); Platelet Count 295 K/mm3 (142-424); Red Cell Distribution Width 14.6 % (11.5-17.5); White Blood Count 10.2 K/mm3 (4.8-10.8)
[2022-06-17 14:48] LABS: Alanine Aminotransferase 26 U/L (12-78); Albumin Level 4.2 g/dl (3.5-5.0); Alkaline Phosphatase 73 U/L (38-126); Anion Gap 7.8 mEq/L (5-15); Aspartate Amino Transferase 44 U/L (14-36); Bilirubin,Direct 0.4 mg/dl (0.0-0.4); Bilirubin,Total 1.4 mg/dl (0.2-1.3); Blood Urea Nitrogen 13 mg/dl (7-17); Calcium 8.9 mg/dl (8.4-10.2); Carbon Dioxide 30 mmol/L (22.0-30.0); Chloride 98 mmol/L (98-107); Chol/HDL Ratio 3.2 (1-3.5); Cholesterol 209 mg/dl (140-200); Estimated Glomerular Filt Rate 64 ml/min (>60); GFR (African American) 78 ML/MIN (>60); Glucose 111 mg/dl (74-100); HDL Cholesterol 66 mg/dl (40-60); Potassium 3.8 mmoL/L (3.5-5.1); Sodium 132 mmol/L (136-145); Triglycerides 68 mg/dl (30-150); VLDL Cholesterol 14 mg/dL (0-40)
[2022-06-17 15:04] LABS: Free T4 (Free Thyroxine) 0.93 ng/dl (0.78-2.19)
[2022-06-17 15:18] LABS: Thyroid Stimulating Hormone 1.49 uIU/mL (0.465-4.68)
== END ==
PROVIDERS: PCP Internal Medicine; Visit Provider Physician Assistant
DX: R06.00 Dyspnea, unspecified (principal); R00.2 Palpitations; I11.9 Hypertensive heart disease without heart failure; E11.9 Type 2 diabetes mellitus without complications; I63.9 Cerebral infarction, unspecified; R94.31 Abnormal electrocardiogram [ECG] [EKG]; Z86.718 Personal history of other venous thrombosis and embolism; Z95.0 Presence of cardiac pacemaker
CPT/HCPCS: 80048; 80061; 80076; 83735; 84439; 84443; 85025

== ENCOUNTER → 2022-07-04 10:25 | Outpatient (CLI) | payer OTHER, SELFPAY ==
[2022-07-04 11:54] LABS: Anion Gap 10.6 mEq/L (5-15); Blood Urea Nitrogen 15 mg/dl (7-17); Calcium 9.2 mg/dl (8.4-10.2); Carbon Dioxide 30 mmol/L (22.0-30.0); Chloride 99 mmol/L (98-107); Estimated Glomerular Filt Rate 64 ml/min (>60); GFR (African American) 78 ML/MIN (>60); Glucose 109 mg/dl (74-100); Potassium 4.6 mmoL/L (3.5-5.1); Sodium 135 mmol/L (136-145)
== END ==
PROVIDERS: PCP Internal Medicine; Visit Provider Physician Assistant
DX: I10 Essential (primary) hypertension (principal); R94.31 Abnormal electrocardiogram [ECG] [EKG]; E66.9 Obesity, unspecified; Z68.41 Body mass index [BMI] 40.0-44.9, adult
CPT/HCPCS: 36415; 80048

== ENCOUNTER 2022-07-22 10:35 | Outpatient (CLI) | payer OTHER, SELFPAY ==
[2022-07-22 15:02] LABS: PHA INR Fingerstick 2.1 (0.9-1.1)
== END 2022-07-22 15:16 ==
LOC: ACC 10:35
PROVIDERS: PCP Internal Medicine; Visit Provider Internal Medicine
DX: Z51.81 Encounter for therapeutic drug level monitoring (principal); Z79.01 Long term (current) use of anticoagulants; I48.91 Unspecified atrial fibrillation
CPT/HCPCS: 85610; 99211; G0463

== ENCOUNTER 2022-09-17 10:26 | Outpatient (CLI) | payer OTHER, SELFPAY ==
[2022-09-17 12:37] LABS: Chloride 99 mmol/L (98-107); Potassium 5.3 mmoL/L (3.5-5.1); Sodium 136 mmol/L (136-145)
[2022-09-17 12:40] LABS: Anion Gap 14.3 mEq/L (5-15); Blood Urea Nitrogen 10 mg/dl (7-17); Calcium 9.5 mg/dl (8.4-10.2); Carbon Dioxide 28 mmol/L (22.0-30.0); Estimated Glomerular Filt Rate 74 ml/min (>60); GFR (African American) 89 ML/MIN (>60); Glucose 104 mg/dl (74-100)
[2022-09-17 13:34] LABS: PHA INR Fingerstick 2.4 (0.9-1.1)
== END 2022-09-17 13:59 ==
PROVIDERS: Physician Assistant; PCP Internal Medicine; Referring Provider Internal Medicine; Visit Provider Internal Medicine
DX: R06.00 Dyspnea, unspecified (principal); R07.89 Other chest pain; R00.2 Palpitations; R42 Dizziness and giddiness; R55 Syncope and collapse; I10 Essential (primary) hypertension; R94.31 Abnormal electrocardiogram [ECG] [EKG]; Z86.718 Personal history of other venous thrombosis and embolism; R25.2 Cramp and spasm; Z95.0 Presence of cardiac pacemaker; Z51.81 Encounter for therapeutic drug level monitoring; Z79.01 Long term (current) use of anticoagulants
CPT/HCPCS: 80048; 84439; 85610; 99211; G0463

== ENCOUNTER 2022-10-24 14:42 | Emergency (ER) | payer OTHER, SELFPAY ==
[2022-10-24 14:43] VITALS: BP 148/78; PULSE 81; RESP 18; TEMP 36.6; O2SAT 97; BMI 41.5
--- NOTE | 2022-10-24 14:49 | ECG_ITS ---
APPROVED REPORT Exam: Resting ECG HR:101 bpm ECG Measurements Heart Rate 101 AXES NM 166 P 260 QRSd 76 QRS 152 QT 213 T 259 QTc 271 Conclusion ELECTRONIC VENTRICULAR PACEMAKER ABNORMAL RHYTHM ECG UNCONFIRMED REPORT Electronically signed by : Martin Daugherty MD 10/24/2022 21:12:00
[2022-10-24 15:00] VITALS: PULSE 78; RESP 24; O2SAT 97
--- NOTE | 2022-10-24 15:03 | PC.NURSE ---
Dr. Bansal paged by ultimate hoops scoreboard operator
--- NOTE | 2022-10-24 15:05 | PC.NURSE ---
MANAS ANDRADE speaking with Dr. Bansal
--- NOTE | 2022-10-24 15:13 | PC.NURSE ---
MANAS ANDRADE speaking with Fidencio the pacemaker benefits representative.
--- NOTE | 2022-10-24 15:19 | HMH.EDGENADL ---
Discharge Plan Disposition Patient Disposition: Home, Self-Care Prescriptions Prescriptions: No Action omeprazole magnesium [Prilosec OTC] 20 mg tablet,delayed release (DR/EC) 20 mg PO DAILY PRN (Reason: GERD) paroxetine HCl [Paxil CR] 25 mg tablet extended release 24 hr 20 mg PO DAILY metoprolol succinate 100 mg tablet extended release 24 hr 100 mg PO BID Qty: 60 5RF furosemide [Lasix] 40 mg tablet 40 mg PO BID Qty: 60 3RF spironolactone 50 mg tablet 50 mg PO BID Qty: 60 3RF warfarin 5 mg Tablet 5 mg PO SUTUWETHSA warfarin 5 mg tablet 2.5 mg PO MOFR Patient Comments: TAKE ONE TABLET BY MOUTH EVERY DAY OR DIRECTED Referrals Follow up/Referrals: Martin Khan MD [Primary Care Provider] - See instructions Activity Restrictions/Add. Instructions Additional Instructions/Restrictions: You had pacer muscle pocket stimulation that was resolved with the polarization of your pacemaker being changed with his settings. Please follow-up with auditor medical claims or return to the emergency department as needed. Clinical Impressions Clinical Impression: Stimulation of muscle pocket due to and not concurrent with implantation of cardiac pacemaker Discharge ED Provider: Janett Chino General Adult HPI General Chief complaint: Arrhythmia/Palpitations Stated complaint: Pacemaker, heart beating fast Time Seen by Provider: 10/24/22 14:57 Mode of Arrival: Ambulatory Source of Information: Patient Limitations: No Limitations Description of Symptoms (Recalled from ER Triage Doc. by RN): Presents ot ED with concerns of malfunctioning pacemaker. Patient reports she got home an hour ago and felt her pacemaker jumping . Pacemaker placed in June 2020. +Warfarin. History of Present Illness HPI narrative: Patient is a 56-year-old female presenting today with her pacemaker jumping . She was given a pacemaker in 2021 after she had third-degree heart block. Things been going well up until recently when she started feeling significant jumping states that she physically can feel the pacemaker movements in her chest wall. No other chest pain fevers or other symptoms no injuries to the area no other concerns. Related Data Home Medications Medication Instructions Recorded Confirmed paroxetine HCl 25 mg 20 mg PO DAILY . 06/03/19 06/17/22 tablet,extended release 24 hr (Paxil CR) omeprazole magnesium 20 mg 20 mg PO DAILY PRN GERD 06/28/21 06/17/22 tablet,delayed release (Prilosec OTC) warfarin 5 mg tablet 2.5 mg PO MOFR AFIB 10/24/22 10/24/22 warfarin 5 mg tablet 5 mg PO SUTUWETHSA AFIB 10/24/22 10/24/22 Previous Rx's Medication Instructions Recorded metoprolol succinate 100 mg 100 mg PO BID . #60 tabs 06/10/22 tablet,extended release 24 hr furosemide 40 mg tablet (Lasix) 40 mg PO BID #60 tabs 09/05/22 spironolactone 50 mg tablet 50 mg PO BID #60 tabs 09/05/22 Allergies Allergy/AdvReac Type Severity Reaction Status Date / Time hydrocodone [HYDROCODONE] Allergy Severe EXACERBATION Verified 06/17/22 10:47 OF [facility] oxycodone [OXYCODONE] Allergy Severe EXACERBATION Verified 06/17/22 10:47 OF [facility] verapamil [VERAPAMIL] Allergy Severe EXACERBATION Verified 06/17/22 10:47 OF [facility] rivaroxaban [RIVAROXABAN] Allergy Intermediate I-RASH Verified 06/17/22 10:47 [facility] Disclaimer: The information contained in this section may have been updated after the patient was seen, as this information can be updated by other users. Medical History (Updated 10/24/22 @ 15:23 by Janett Chino MD) 1st degree AV block Abnormal electrocardiography Abnormal Holter exam Chest pain Dizziness Dyspnea Hyperkalemia Near syncope Prolonged [place] interval Protein C deficiency Sinus pause Social History Smoking Status: Never smoker second hand exposure: No alcohol intake: never substance use type: denies use current occupat
--- NOTE | 2022-10-24 15:20 | PC.NURSE ---
waiting math and science division chair back from cardiology office r/t needing the pacemaker interrogation cart
[2022-10-24 15:59] VITALS: BP 129/76; PULSE 70; RESP 19; TEMP 36.6; O2SAT 98
== END 2022-10-24 16:02 | disposition home or self-care (01) ==
PROVIDERS: Emergency Provider Student in an Organized Health Care Education/Training Program; PCP Internal Medicine
DX: T82.897A Other specified complication of cardiac prosthetic devices, implants and grafts, initial encounter (principal)
CPT/HCPCS: 93005; 99284

== ENCOUNTER 2022-11-01 10:06 | Outpatient (CLI) | payer OTHER, SELFPAY ==
[2022-11-01 12:57] LABS: PHA INR Fingerstick 2.9 (0.9-1.1)
== END 2022-11-01 15:09 ==
LOC: ACC 10:06
PROVIDERS: PCP Internal Medicine; Visit Provider Internal Medicine
DX: Z51.81 Encounter for therapeutic drug level monitoring (principal); Z79.01 Long term (current) use of anticoagulants; I48.91 Unspecified atrial fibrillation
CPT/HCPCS: 85610; 99211; G0463

== ENCOUNTER 2022-11-06 08:24 | Outpatient (CLI) | payer OTHER, SELFPAY ==
[2022-11-06 14:36] LABS: PHA INR Fingerstick 2.4 (0.9-1.1)
== END 2022-11-06 14:55 ==
LOC: RT 08:25
PROVIDERS: PCP Internal Medicine; Visit Provider Internal Medicine
DX: R06.02 Shortness of breath (principal); Z51.81 Encounter for therapeutic drug level monitoring; Z79.01 Long term (current) use of anticoagulants
CPT/HCPCS: 85610; 93308; 99211; G0463

== ENCOUNTER 2022-11-07 10:40 | Outpatient (CLI) | payer OTHER, SELFPAY ==
[2022-11-07 14:07] LABS: INR 1.39 (0.9-1.1); Prothrombin Time 14.7 seconds (10.1-12.5)
[2022-11-07 14:37] LABS: Anion Gap 13.7 mEq/L (5-15); Blood Urea Nitrogen 19 mg/dl (7-17); Calcium 9.6 mg/dl (8.4-10.2); Carbon Dioxide 30 mmol/L (22.0-30.0); Chloride 100 mmol/L (98-107); Estimated Glomerular Filt Rate 57 ml/min (>60); GFR (African American) 69 ML/MIN (>60); Glucose 134 mg/dl (74-100); Potassium 4.7 mmoL/L (3.5-5.1); Sodium 139 mmol/L (136-145)
[2022-11-07 15:14] LABS: PHA INR Fingerstick 1.7 (0.9-1.1)
[2022-11-07 16:36] LABS: Basophils % 0.7 % (0.1-2.0); Eosinophils # 0.2 K/mm3 (0.0-0.4); Eosinophils % 2.9 % (0.1-12.0); Hematocrit 41.9 % (37.0-47.0); Hemoglobin 13.7 g/dL (12.2-16.2); Lymphocytes # 2.2 K/mm3 (0.7-4.5); Lymphocytes % 37.9 % (10-50); Mean Corpuscular HGB Conc 32.7 g/dL (31.8-35.4); Mean Corpuscular Hemoglobin 29.5 pg (27.0-31.2); Mean Corpuscular Volume 90.3 fl (81-99); Mean Platelet Volume 7.2 fl (7.4-10.4); Monocytes # 0.4 K/mm3 (0.1-1.0); Monocytes % 6.3 % (1.7-9.3); Neutrophils % 52.2 % (37.0-80.0); Platelet Count 340 K/mm3 (142-424); Red Blood Count 4.64 M/mm3 (4.20-5.40); Red Cell Distribution Width 13.3 % (11.5-17.5); White Blood Count 5.8 K/mm3 (4.8-10.8)
== END 2022-11-07 15:16 ==
PROVIDERS: PCP Internal Medicine; Visit Provider Internal Medicine
DX: Z01.812 Encounter for preprocedural laboratory examination (principal); Z51.81 Encounter for therapeutic drug level monitoring; Z79.01 Long term (current) use of anticoagulants; I48.91 Unspecified atrial fibrillation
CPT/HCPCS: 36415; 80048; 85025; 85610; 99211; G0463

== ENCOUNTER 2022-11-08 10:43 | Day surgery (SDC) | payer OTHER, SELFPAY ==
[2022-11-08] VITALS (9 sets, daily range): BP systolic 123–176; BP diastolic 60–98; PULSE 70–81; RESP 16–19; O2SAT 96–100; BMI 41.5
--- NOTE | 2022-11-08 | IR_ITS ---
APPROVED REPORT Patient Location: Outpatient Staffing Assistant: HAM Godinez RT (R) PROCEDURES 1. Pocket formation for biventricular pacemaker generator with cardiac resynchronization therapy. 2. Placement of atrial sensing and pacing lead into the right atrial appendage. 3. Capping of chronic right atrial lead. 4. Removal of chronic pacemaker generator. 5. Placement of left ventricular sensing pacing lead via the coronary sinus. 6. Permanent cardiac resynchronization therapy with biventricular pacemaker. INDICATION First degree block, Fractured Atrial lead, Sinus Pause, Pacemaker induced cardiomyopathy Informed consent was obtained prior to the procedure. COMPLICATIONS None Estimated Blood Loss: Less than 10 ML TECHNIQUE 1% Lidocaine with epinephrine used to anesthetized the left anterior aspect of the chest. Scalpel was used to make the initial cutaneous incision. The pocket was opened and the chronic pacemaker was excised. Chronic Atrial lead was removed from generator then capped. The patient was then placed in Trendelenburg position and the subclavian vein was accessed two times via the Selinger technique, there are two wires in the vein. A10.5 [place] sheath and dilator was then placed over one of the wires while keeping the other two wires in place within the subclavian vein. The dilator was removed from the sheath. Using fluoroscopic guidance, contrast was used to visualize the coronary sinus, the left ventricular lead was placed into the coronary sinus. Electronic interrogation proved acceptable thresholds and voltage within the lead. Following this, the sheath was pealed away. A 6 [place] fresh sheath and dilator was placed over the existing wire. Using fluoroscopic guidance, the atrial lead was the placed into the right atrial appendage and screwed and secured in place. Electrical interrogation demonstrated acceptable thresholds and voltage number. The atrial lead was then secured into place using 3-0 silk. 1 gram of Ancef was used to flush the pocket. Following the pacemaker generator being secured to the fascia and in place, Monocryl was used to close the subcutaneous layers while evita were used to close the cutaneous layer. A pressure dressing was placed and the patient was transferred to the postop holding area in stable condition for postoperative care. INTERROGATION Generator Model number: [place] AllKadenze MP 3562 Generator Serial number: [id number] Atrial lead model number: Tendril STS 2088TC/46 cm Atrial lead serial number: [id number] P-wave: 2.1 mV Impedence: 510 Ohms Threshold: 1.25V@0.4ms Right Ventricular lead model number: 7841/52 cm Right Ventricular lead serial number: [id number] R-wave: Impedence: 1.0@0.4ms Threshold: 990 Ohms Left Ventricular lead model number: Laine 1458Q/86cm Left Ventricular lead serial number: [id number] R-wave: Impedence: 930 Ohms Threshold:1.75V@1.0ms Pacing Parameters: Mode: DDDR Base/Max Track:70 ppm / 130 ppm No diaphragmatic stimulation at 10 volts. IMPRESSION 1. Successful Pocket formation for biventricular pacemaker generator with cardiac resynchronization therapy. 2. Successful Placement of atrial sensing and pacing lead into the right atrial appendage. 3. Successful Capping of chronic right atrial lead. 4. Successful Removal of chronic pacemaker generator. 5. Successful Placement of left ventricular sensing pacing lead via the coronary sinus. 6. Successful Permanent cardiac resynchronization therapy with biventricular pacemaker. PLAN 1. Post Op Wound Care. Electronically signed by : Jese Bansal MD 11/15/2022 09:16:21
--- NOTE | 2022-11-08 11:15 | P.PNANES_ITS ---
[facility] Disclaimer: The information contained in this section may have been updated after the patient was seen, as this information can be updated by other users. Medical History 1st degree AV block Abnormal electrocardiography Abnormal Holter exam Chest pain Dizziness Dyspnea Hyperkalemia Near syncope Prolonged [place] interval Protein C deficiency Sinus pause Social History Smoking Status: Never smoker second hand exposure: No alcohol intake: never substance use type: denies use current occupational status: unemployed Travel in the last 8 weeks: Inside the [place] household members: spouse housing: house current occupational exposures/hazards: No caffeine: Yes [facility] Anesthesia Checklist Patient Identification Patient Identification: Arm Band and Verbal (Name & ) Structural Data Admitted From: Home Planned Operative Procedure/s: Dual chamber pacemaker Consent for Planned Operative Procedure(s) Verified: Yes NPO Status Verified Time NPO: 00:00 Additional verifications Anesthesia Reactions: No Airway Assessment C-Spine Mobility Assessed: Yes TMJ Mobility Assessed: Yes Dentition: Good Dentition Neurological Assessment Level of Consciousness: Awake Hx Seizures: No Numbness or tingling in extremities: No Anesthesia Plan Anesthesia Risk discussed: Yes Anesthesia Plan: Verified ASA Class: III Anesthesia Type: MAC
--- NOTE | 2022-11-08 14:37 | XR_ITS ---
FINAL REPORT CLINICAL HISTORY: post pacemaker COMPARISON: 07/04/2021 FINDINGS: A single PA view of the chest was obtained. There has been revision of the previously seen left pacemaker. The cardiac and mediastinal silhouettes are within normal limits. There are low lung volumes. There is airspace disease in the medial upper lobes bilaterally, favor atelectasis. There is no effusion or pneumothorax. IMPRESSION: Revision of the previously seen left-sided pacemaker. Favor atelectasis in the upper lobes bilaterally. Reviewed, Interpreted and Dictated by Ashley Edwards MD Transcribed by Adrienne Patrick Authenticated and [facility]
== END 2022-11-08 16:40 | disposition home or self-care (01) ==
PROVIDERS: PCP Internal Medicine; Visit Provider Internal Medicine
DX: T82.110A Breakdown (mechanical) of cardiac electrode, initial encounter (principal); T82.897A Other specified complication of cardiac prosthetic devices, implants and grafts, initial encounter; I45.5 Other specified heart block; I44.1 Atrioventricular block, second degree; I42.8 Other cardiomyopathies; Z79.01 Long term (current) use of anticoagulants; Z79.899 Other long term (current) drug therapy; Y83.1 Surgical operation with implant of artificial internal device as the cause of abnormal reaction of the patient, or of later complication, without mention of misadventure at the time of the procedure; I10 Essential (primary) hypertension; Z86.718 Personal history of other venous thrombosis and embolism; D68.59 Other primary thrombophilia; Z86.16 Personal history of COVID-19
CPT/HCPCS: 33208; 33225; 33233; 71045; C1769; C1898; C1900; C2621; J2704; Q9967

== ENCOUNTER 2022-11-09 10:46 | Emergency (ER) | payer OTHER, SELFPAY ==
[2022-11-09 10:53] VITALS: BP 139/62; PULSE 76; RESP 16; TEMP 36.8; O2SAT 97; BMI 41.5
[2022-11-09 11:01] VITALS: BP 117/68; PULSE 72; O2SAT 97
--- NOTE | 2022-11-09 11:07 | HMH.EDGENADL ---
Discharge Plan Disposition Patient Disposition: Home, Self-Care Condition: Good Prescriptions Prescriptions: No Action omeprazole magnesium [Prilosec OTC] 20 mg tablet,delayed release (DR/EC) 20 mg PO DAILY PRN (Reason: GERD) paroxetine HCl [Paxil CR] 25 mg tablet extended release 24 hr 20 mg PO DAILY metoprolol succinate 100 mg tablet extended release 24 hr 100 mg PO BID Qty: 60 5RF warfarin 5 mg Tablet 5 mg PO SUTUWETHSA warfarin 5 mg tablet 2.5 mg PO MOFR Patient Comments: TAKE ONE TABLET BY MOUTH EVERY DAY OR DIRECTED furosemide [Lasix] 40 mg tablet 40 mg PO BID spironolactone 50 mg tablet 50 mg PO BID Referrals Follow up/Referrals: Martin Khan MD [Primary Care Provider] - See instructions Activity Restrictions/Add. Instructions Additional Instructions/Restrictions: Continue taking all home medications as previously prescribed. Follow-up outpatient with cardiology and with your primary care physician. Return to the emergency department with any new or worsening symptoms including but not limited to concerns of bleeding. Clinical Impressions Clinical Impression: Postoperative bleeding from incision Instructions Patient Instructions: DI for Skin Abscess Discharge ED Provider: Maria Victoria Jeter General Adult HPI General Chief complaint: Skin/Abscess/Foreign Body Stated complaint: Pacemaker 11/08 Bleeding@incision w/pain Time Seen by Provider: 11/09/22 11:02 Mode of Arrival: Ambulatory Source of Information: Patient Limitations: No Limitations Description of Symptoms (Recalled from ER Triage Doc. by RN): 56 yo F presents to ED with c/o bleeding at pacemaker site. pt reports she had her pacemaker replaced yesterday 11/08. pt woke up this am around 0500 with small bleeding noted at the site. pt states she laid back down and when she woke up the dressing was saturated. pt reports that took coumadin and lovenox dose last night. History of Present Illness HPI narrative: This 56-year-old female presents to the emergency department with concerns of bleeding at her pacemaker site. Patient was supposed to have lead replacement yesterday but they ended up having to replace the entire pacemaker. She woke up around 5 AM and had small bleeding. She states that she got up and went to the restroom and laid back in the recliner and when she woke up again the dressing was saturated. She states that she was instructed to restart her Coumadin and Lovenox last night and has been taking all of her other medications as prescribed as well. She states that she is sore, but does not have specifically increased pain at the site. 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 Review of systems otherwise negative. Related Data Home Medications Medication Instructions Recorded Confirmed paroxetine HCl 25 mg 20 mg PO DAILY . 06/03/19 11/08/22 tablet,extended release 24 hr (Paxil CR) omeprazole magnesium 20 mg 20 mg PO DAILY PRN GERD 06/28/21 11/08/22 tablet,delayed release (Prilosec OTC) warfarin 5 mg tablet 2.5 mg PO MOFR AFIB 10/24/22 11/08/22 warfarin 5 mg tablet 5 mg PO SUTUWETHSA AFIB 10/24/22 11/08/22 furosemide 40 mg tablet (Lasix) 40 mg PO BID Fluid 11/08/22 11/08/22 spironolactone 50 mg tablet 50 mg PO BID Fluid 11/08/22 11/08/22 Previous Rx's Medication Instructions Recorded metoprolol succinate 100 mg 100 mg PO BID . #60 tabs 06/10/22 tablet,extended release 24 hr Allergies Allergy/AdvReac Type Severity Reaction Status Date / Time hydrocodone [HYDROCODONE] Allergy Severe EXACERBATION Verified 11/05/22 10:51 OF [facility] oxycodone [OXYCODONE] Allergy Severe EXACERBATION Verified 11/05/22 10:51 OF [facility] verapamil [VERAPAMIL] Allergy Severe EXACERBATION Verified 11/05/22 10:51 OF [facility] rivaroxaban [RIVAROXABAN] Allergy Intermediate I-RASH Verified 11/05/22 10:51 [facility] Disclaimer: The information
--- NOTE | 2022-11-09 11:53 | PC.NURSE ---
Dr Jeter spoke with Dr Bansal
--- NOTE | 2022-11-09 11:59 | PC.NURSE ---
pts incision site, redressed with 4x4 and tegaderm.
[2022-11-09 12:24] VITALS: BP 112/64; PULSE 74; RESP 17; TEMP 36.8; O2SAT 98
== END 2022-11-09 12:26 | disposition home or self-care (01) ==
PROVIDERS: Emergency Provider Emergency Medicine; PCP Internal Medicine
DX: L76.22 Postprocedural hemorrhage of skin and subcutaneous tissue following other procedure (principal); I44.0 Atrioventricular block, first degree; Z79.01 Long term (current) use of anticoagulants; Y83.1 Surgical operation with implant of artificial internal device as the cause of abnormal reaction of the patient, or of later complication, without mention of misadventure at the time of the procedure
CPT/HCPCS: 99283

== ENCOUNTER 2022-11-10 07:10 | Emergency (ER) | payer OTHER, SELFPAY ==
[2022-11-10 07:18] VITALS: BP 160/87; PULSE 74; RESP 20; TEMP 36.8; O2SAT 98; BMI 41.5
--- NOTE | 2022-11-10 07:46 | PC.NURSE ---
at the bedside
--- NOTE | 2022-11-10 08:07 | HMH.EDGENADL ---
Discharge Plan Disposition Patient Disposition: Home, Self-Care Condition: Good Chief Complaint: Recheck/Abnormal Lab/Rx Prescriptions Prescriptions: No Action omeprazole magnesium [Prilosec OTC] 20 mg tablet,delayed release (DR/EC) 20 mg PO DAILY PRN (Reason: GERD) paroxetine HCl [Paxil CR] 25 mg tablet extended release 24 hr 20 mg PO DAILY metoprolol succinate 100 mg tablet extended release 24 hr 100 mg PO BID Qty: 60 5RF warfarin 5 mg Tablet 5 mg PO SUTUWETHSA warfarin 5 mg tablet 2.5 mg PO MOFR Patient Comments: TAKE ONE TABLET BY MOUTH EVERY DAY OR DIRECTED furosemide [Lasix] 40 mg tablet 40 mg PO BID spironolactone 50 mg tablet 50 mg PO BID Referrals Follow up/Referrals: Martin Khan MD [Primary Care Provider] - See instructions Activity Restrictions/Add. Instructions Additional Instructions/Restrictions: If you have any worsening of your condition or any other concerning signs or symptoms, return to the emergency department or your primary care doctor for further evaluation. Clinical Impressions Clinical Impression: Post-op bleeding Qualifiers: Surgical complication system/body Area: skin Procedure type: non-dermatologic Qualified Code(s): L76.22 - Postprocedural hemorrhage of skin and subcutaneous tissue following other procedure Discharge ED Provider: Russell Martines General Adult HPI General Chief complaint: Recheck/Abnormal Lab/Rx Stated complaint: Post op 11/08 [email or web address] Time Seen by Provider: 11/10/22 07:26 Mode of Arrival: Ambulatory Source of Information: Patient Limitations: No Limitations Description of Symptoms (Recalled from ER Triage Doc. by RN): pt presents to ed c/o bleeding at pacemaker site. pt reports having her pacemaker placed on friday. pt denies any soa or pain. History of Present Illness HPI narrative: This is a 56-year-old female with recently fractured pacemaker lead wire, DVT on warfarin, heart block presenting with bleeding. Patient states that she had pacemaker placement 2 days prior to arrival on 11/08. Since that time, patient has had continued bleeding from the site. Presented to the emergency department yesterday, 11/09 to have bleeding controlled. Initially had bleeding controlled, however today had bleeding for about 16 hours. Presents for help to control bleeding. Patient has still been taking warfarin, not currently taking Lovenox. Denies shortness of breath, lightheadedness, fevers or chills, worsening pain over the site, nausea or vomiting, any systemic signs or symptoms, or any other concerns at the operative site. Related Data Home Medications Medication Instructions Recorded Confirmed paroxetine HCl 25 mg 20 mg PO DAILY . 06/03/19 11/08/22 tablet,extended release 24 hr (Paxil CR) omeprazole magnesium 20 mg 20 mg PO DAILY PRN GERD 06/28/21 11/08/22 tablet,delayed release (Prilosec OTC) warfarin 5 mg tablet 2.5 mg PO MOFR AFIB 10/24/22 11/08/22 warfarin 5 mg tablet 5 mg PO SUTUWETHSA AFIB 10/24/22 11/08/22 furosemide 40 mg tablet (Lasix) 40 mg PO BID Fluid 11/08/22 11/08/22 spironolactone 50 mg tablet 50 mg PO BID Fluid 11/08/22 11/08/22 Previous Rx's Medication Instructions Recorded metoprolol succinate 100 mg 100 mg PO BID . #60 tabs 06/10/22 tablet,extended release 24 hr Allergies Allergy/AdvReac Type Severity Reaction Status Date / Time hydrocodone [HYDROCODONE] Allergy Severe EXACERBATION Verified 11/05/22 10:51 [facility] oxycodone [OXYCODONE] Allergy Severe EXACERBATION Verified 11/05/22 10:51 [facility] verapamil [VERAPAMIL] Allergy Severe EXACERBATION Verified 11/05/22 10:51 [facility] rivaroxaban [RIVAROXABAN] Allergy Intermediate I-RASH Verified 11/05/22 10:51 [facility] Disclaimer: The information contained in this section may have been updated after the patient was seen, as this information can be updated by other users. Medical History (Reviewed
[2022-11-10 09:05] VITALS: BP 125/66; PULSE 71; RESP 20; TEMP 36.8; O2SAT 95
== END 2022-11-10 09:07 | disposition home or self-care (01) ==
PROVIDERS: Emergency Provider Emergency Medicine; PCP Internal Medicine
DX: L76.22 Postprocedural hemorrhage of skin and subcutaneous tissue following other procedure (principal); I44.0 Atrioventricular block, first degree; Z79.01 Long term (current) use of anticoagulants; Y83.1 Surgical operation with implant of artificial internal device as the cause of abnormal reaction of the patient, or of later complication, without mention of misadventure at the time of the procedure
CPT/HCPCS: 99283

== ENCOUNTER 2022-11-12 10:20 | Outpatient (CLI) | payer OTHER, SELFPAY ==
[2022-11-12 11:28] LABS: PHA INR Fingerstick 2.9 (0.9-1.1)
== END 2022-11-12 11:48 ==
LOC: ACC 10:20
PROVIDERS: PCP Internal Medicine; Visit Provider Internal Medicine
DX: Z51.81 Encounter for therapeutic drug level monitoring (principal); Z79.01 Long term (current) use of anticoagulants; I48.91 Unspecified atrial fibrillation
CPT/HCPCS: 85610; 99211; G0463

== ENCOUNTER 2022-12-06 14:31 | Outpatient (CLI) | payer OTHER, SELFPAY ==
[2022-12-06 15:53] LABS: PHA INR Fingerstick 2.9 (0.9-1.1)
== END 2022-12-06 16:03 ==
LOC: ACC 14:32
PROVIDERS: PCP Internal Medicine; Visit Provider Internal Medicine
DX: Z51.81 Encounter for therapeutic drug level monitoring (principal); Z79.01 Long term (current) use of anticoagulants; I48.91 Unspecified atrial fibrillation
CPT/HCPCS: 85610; 99211; G0463

== ENCOUNTER → 2022-12-16 11:16 | Outpatient (CLI) | payer OTHER, SELFPAY ==
[2022-12-16 13:00] LABS: Anion Gap 16.5 mEq/L (5-15); Blood Urea Nitrogen 13 mg/dl (7-17); Calcium 9.9 mg/dl (8.4-10.2); Carbon Dioxide 30 mmol/L (22.0-30.0); Chloride 97 mmol/L (98-107); Estimated Glomerular Filt Rate 57 ml/min (>60); GFR (African American) 69 ML/MIN (>60); Glucose 110 mg/dl (74-100); Magnesium 1.9 mg/dl (1.6-2.3); Potassium 4.5 mmoL/L (3.5-5.1); Sodium 139 mmol/L (136-145)
== END ==
PROVIDERS: PCP Internal Medicine; Visit Provider Nurse Practitioner
DX: R06.00 Dyspnea, unspecified (principal); I10 Essential (primary) hypertension; E87.5 Hyperkalemia; R94.31 Abnormal electrocardiogram [ECG] [EKG]; Z95.0 Presence of cardiac pacemaker
CPT/HCPCS: 36415; 80048; 83735

== ENCOUNTER 2023-01-17 15:25 | Outpatient (CLI) | payer OTHER, SELFPAY ==
[2023-01-17 16:07] LABS: PHA INR Fingerstick 2.1 (0.9-1.1)
== END 2023-01-17 16:15 ==
LOC: ACC 15:26
PROVIDERS: PCP Internal Medicine; Visit Provider Internal Medicine
DX: Z51.81 Encounter for therapeutic drug level monitoring (principal); Z79.01 Long term (current) use of anticoagulants; I48.91 Unspecified atrial fibrillation
CPT/HCPCS: 85610; 99211; G0463

== ENCOUNTER 2023-02-25 10:42 | Outpatient (CLI) | payer OTHER, SELFPAY ==
[2023-02-25 14:33] LABS: PHA INR Fingerstick 2.8 (0.9-1.1)
== END 2023-02-25 14:35 ==
LOC: ACC 10:43
PROVIDERS: PCP Internal Medicine; Visit Provider Internal Medicine
DX: Z51.81 Encounter for therapeutic drug level monitoring (principal); Z79.01 Long term (current) use of anticoagulants; I48.91 Unspecified atrial fibrillation
CPT/HCPCS: 85610; 99211; G0463

== ENCOUNTER 2023-04-09 15:04 | Outpatient (CLI) | payer OTHER, SELFPAY ==
[2023-04-09 16:02] LABS: PHA INR Fingerstick 3.9 (0.9-1.1)
== END 2023-04-09 16:19 ==
LOC: ACC 15:06
PROVIDERS: PCP Internal Medicine; Visit Provider Internal Medicine
DX: Z51.81 Encounter for therapeutic drug level monitoring (principal); Z79.01 Long term (current) use of anticoagulants; I48.91 Unspecified atrial fibrillation
CPT/HCPCS: 85610; 99211; G0463

== ENCOUNTER 2023-04-18 13:36 | Outpatient (CLI) | payer OTHER, SELFPAY ==
[2023-04-18 13:53] LABS: PHA INR Fingerstick 2.1 (0.9-1.1)
== END 2023-04-18 13:54 ==
LOC: ACC 13:37
PROVIDERS: PCP Internal Medicine; Visit Provider Internal Medicine
DX: Z51.81 Encounter for therapeutic drug level monitoring (principal); Z79.01 Long term (current) use of anticoagulants; I48.91 Unspecified atrial fibrillation
CPT/HCPCS: 85610

== ENCOUNTER 2023-05-08 07:32 | Outpatient (CLI) | payer OTHER, SELFPAY ==
--- NOTE | 2023-05-08 07:40 | MM_ITS ---
PROCEDURE INFORMATION: Exam: MG Bilateral Screening 3D Mammography Exam date and time: 05/08/2023 7:53 AM Age: 57 years old Clinical indication: Screening mammogram TECHNIQUE: Imaging protocol: Bilateral Screening tomosynthesis and 2D mammography including computer-aided detection (CAD) when performed. COMPARISON: 1. MG MM DIG SCREENING MAMM BI W/CAD 05/23/2021 1:57 PM 2. MG MM DIG MAMM DX UNILAT RT CAD 11/20/2020 2:17 PM 3. MG MM DIG MAMM DX UNILAT RT CAD 06/02/2020 12:57 PM 4. MG MM DIG SCREENING MAMM BI W/CAD 05/16/2020 8:03 AM FINDINGS: MAMMOGRAPHY: Breast composition: The breasts are almost entirely fatty. Mass: None. Architectural distortion: No new or suspicious architectural distortion. Calcifications: No new or suspicious calcifications are present Asymmetric density: No new or suspicious asymmetric density is present Skin thickening: None. Axillary adenopathy: None. IMPRESSION: No mammographic evidence of malignancy. Recommend annual screening mammography unless otherwise clinically indicated. ASSESSMENT: BI-RADS category 1: Negative
== END 2023-05-08 23:59 ==
LOC: RAD 07:33
PROVIDERS: PCP Internal Medicine; Visit Provider Internal Medicine
DX: Z12.31 Encounter for screening mammogram for malignant neoplasm of breast (principal)
CPT/HCPCS: 77063; 77067

== ENCOUNTER 2023-05-15 15:22 | Outpatient (CLI) | payer OTHER, SELFPAY ==
[2023-05-15 15:44] LABS: PHA INR Fingerstick 2.7 (0.9-1.1)
== END 2023-05-15 15:45 ==
LOC: ACC 15:23
PROVIDERS: PCP Internal Medicine; Visit Provider Internal Medicine
DX: Z51.81 Encounter for therapeutic drug level monitoring (principal); Z79.01 Long term (current) use of anticoagulants; I48.91 Unspecified atrial fibrillation
CPT/HCPCS: 85610; 99211; G0463

== ENCOUNTER 2023-06-09 11:41 | Outpatient (CLI) | payer OTHER, SELFPAY ==
[2023-06-09 12:15] LABS: Basophils % 0.5 % (0.1-2.0); Eosinophils # 0.2 K/mm3 (0.0-0.4); Eosinophils % 2.4 % (0.1-12.0); Hematocrit 42.1 % (37.0-47.0); Hemoglobin 14.5 g/dL (12.2-16.2); Lymphocytes # 2.3 K/mm3 (0.7-4.5); Lymphocytes % 37.3 % (10-50); Mean Corpuscular HGB Conc 34.5 g/dL (31.8-35.4); Mean Corpuscular Hemoglobin 30.5 pg (27.0-31.2); Mean Corpuscular Volume 88.5 fl (81-99); Mean Platelet Volume 7.3 fl (7.4-10.4); Monocytes # 0.4 K/mm3 (0.1-1.0); Monocytes % 6.4 % (1.7-9.3); Neutrophils # 3.2 K/mm3 (1.8-7.8); Neutrophils % 53.3 % (37.0-80.0); Platelet Count 306 K/mm3 (142-424); Red Blood Count 4.75 M/mm3 (4.20-5.40); Red Cell Distribution Width 13.6 % (11.5-17.5); White Blood Count 6.1 K/mm3 (4.8-10.8)
[2023-06-09 13:55] LABS: Chloride 101 mmol/L (98-107); Potassium 4.7 mmoL/L (3.5-5.1); Sodium 136 mmol/L (136-145)
[2023-06-09 13:57] LABS: Blood Urea Nitrogen 13 mg/dl (7-17); Estimated Glomerular Filt Rate 73 ml/min (>60); GFR (African American) 89 ML/MIN (>60)
[2023-06-09 13:58] LABS: Alanine Aminotransferase 26 U/L (12-78); Albumin Level 4.6 g/dl (3.5-5.0); Alkaline Phosphatase 67 U/L (38-126); Anion Gap 9.7 mEq/L (5-15); Aspartate Amino Transferase 47 U/L (14-36); Bilirubin,Direct 0.4 mg/dl (0.0-0.4); Bilirubin,Indirect 0.7 mg/dL (0.0-0.9); Bilirubin,Total 1.1 mg/dl (0.2-1.3); Bilirubin,Unconjugated 0.7 mg/dL (0.0-1.1); Calcium 9.2 mg/dl (8.4-10.2); Carbon Dioxide 30 mmol/L (22.0-30.0); Chol/HDL Ratio 5.2 (1-3.5); Cholesterol 268 mg/dl (140-200); Glucose 96 mg/dl (74-100); HDL Cholesterol 52 mg/dl (40-60); Total Protein,Serum 7.6 g/dl (6.3-8.2); Triglycerides 123 mg/dl (30-150); VLDL Cholesterol 25 mg/dL (0-40)
[2023-06-09 14:10] LABS: Direct LDL Cholesterol 143.65 mg/dL (100-129)
[2023-06-09 14:14] LABS: Free T4 (Free Thyroxine) 0.81 ng/dl (0.78-2.19)
[2023-06-09 14:29] LABS: Thyroid Stimulating Hormone 1.98 uIU/mL (0.465-4.68)
== END 2023-06-09 23:59 ==
LOC: LAB 11:41
PROVIDERS: PCP Internal Medicine; Visit Provider Physician Assistant
DX: R00.2 Palpitations (principal); R06.00 Dyspnea, unspecified; T82.110A Breakdown (mechanical) of cardiac electrode, initial encounter; E11.9 Type 2 diabetes mellitus without complications; I11.9 Hypertensive heart disease without heart failure; K21.9 Gastro-esophageal reflux disease without esophagitis; Z86.718 Personal history of other venous thrombosis and embolism; Z95.0 Presence of cardiac pacemaker
CPT/HCPCS: 36415; 80048; 80061; 80076; 84439; 84443; 85025

== ENCOUNTER 2023-06-25 10:51 | Outpatient (CLI) | payer OTHER, SELFPAY ==
[2023-06-25 14:18] LABS: PHA INR Fingerstick 1.9 (0.9-1.1)
== END 2023-06-25 14:30 ==
LOC: ACC 10:51
PROVIDERS: PCP Internal Medicine; Visit Provider Internal Medicine
DX: Z79.01 Long term (current) use of anticoagulants (principal); Z51.81 Encounter for therapeutic drug level monitoring; I48.91 Unspecified atrial fibrillation
CPT/HCPCS: 85610; 99211; G0463

== ENCOUNTER 2023-08-06 15:05 | Outpatient (CLI) | payer OTHER, SELFPAY ==
[2023-08-06 15:42] LABS: PHA INR Fingerstick 2.5 (0.9-1.1)
== END 2023-08-06 15:43 ==
LOC: ACC 15:06
PROVIDERS: PCP Internal Medicine; Visit Provider Internal Medicine
DX: I48.91 Unspecified atrial fibrillation (principal); Z51.81 Encounter for therapeutic drug level monitoring; Z79.01 Long term (current) use of anticoagulants
CPT/HCPCS: 85610; 99211; G0463

== ENCOUNTER 2023-09-18 08:52 | Outpatient (CLI) | payer OTHER, SELFPAY ==
[2023-09-18 12:12] LABS: PHA INR Fingerstick 2.5 (0.9-1.1)
== END 2023-09-18 12:55 ==
LOC: ACC 08:53
PROVIDERS: PCP Internal Medicine; Visit Provider Internal Medicine
DX: Z51.81 Encounter for therapeutic drug level monitoring (principal); Z79.01 Long term (current) use of anticoagulants; I48.91 Unspecified atrial fibrillation
CPT/HCPCS: 85610; 99211; G0463

== ENCOUNTER 2023-10-22 15:49 | Outpatient (CLI) | payer OTHER, SELFPAY | END 2023-10-22 23:59 | disposition home or self-care (01) | LOC: LAB 15:51 | PROVIDERS: PCP Internal Medicine; Visit Provider Internal Medicine | DX: B34.9 Viral infection, unspecified (principal); Z20.822 Contact with and (suspected) exposure to COVID-19 | CPT/HCPCS: 87635 ==

== ENCOUNTER 2023-10-26 11:56 | Emergency (ER) | payer OTHER, SELFPAY ==
[2023-10-26 12:10] VITALS: BP 128/78; PULSE 78; RESP 21; TEMP 36.6; O2SAT 97; BMI 41.1
--- NOTE | 2023-10-26 12:10 | EXP.UTC ---
Discharge Plan Disposition Patient Disposition: Home, Self-Care Condition: Good Prescriptions Prescriptions: New doxycycline hyclate 100 mg capsule 100 mg PO Q12 10 Days Qty: 20 0RF methylprednisolone 4 mg Tablets,Dose Pack 4 mg PO DIRECTED 6 Days Qty: 21 0RF Rx Instructions: Take 1 pack as directed for 6 days guaifenesin [Mucinex] 600 mg tablet extended release 12hr 600 - 1,200 mg PO BIDP PRN (Reason: Congestion) Qty: 30 0RF benzonatate 100 mg capsule 100 mg PO TIDP PRN (Reason: Cough) Qty: 30 0RF No Action furosemide 40 mg tablet 40 mg PO BID Patient Comments: TAKE ONE TABLET BY MOUTH TWICE DAILY metoprolol succinate 100 mg tablet extended release 24 hr 100 mg PO BID Patient Comments: TAKE ONE TABLET BY MOUTH TWICE DAILY paroxetine HCl 20 mg tablet 20 mg PO DAILY Patient Comments: TAKE ONE TABLET BY MOUTH EVERY DAY warfarin 5 mg tablet 5 mg PO DAILY Patient Comments: TAKE ONE TABLET BY MOUTH EVERY DAY OR DIRECTED spironolactone 50 mg tablet 50 mg PO BID Patient Comments: TAKE ONE TABLET BY MOUTH TWICE DAILY Referrals Follow up/Referrals: Martin Khan MD [Primary Care Provider] - See instructions Activity Restrictions/Add. Instructions Additional Instructions/Restrictions: Drink plenty of fluids. Take tylenol or ibuprofen for pain or fever. Take the medications as directed. Follow up with your regular doctor. GO TO THE ER FOR ANY WORSENING SYMPTOMS Clinical Impressions Clinical Impression: Acute bronchitis, Acute viral syndrome Instructions Patient Instructions: DI for Acute Bronchitis, Acute Bronchitis Discharge ED Provider: Mahesh Pagan [facility] General Stated complaint: cough, congestion, headache Time Seen by Provider: 10/26/23 12:07 History of Present Illness Provider Complaint: She states that she has had fatigue, chills, body aches, chest congestion and a cough for the past 5 days. Related Data Home Medications Medication Instructions Recorded Confirmed furosemide 40 mg tablet 40 mg PO BID 10/26/23 10/26/23 metoprolol succinate 100 mg 100 mg PO BID 10/26/23 10/26/23 tablet,extended release 24 hr paroxetine HCl 20 mg tablet 20 mg PO DAILY 10/26/23 10/26/23 spironolactone 50 mg tablet 50 mg PO BID 10/26/23 10/26/23 warfarin 5 mg tablet 5 mg PO DAILY 10/26/23 10/26/23 Previous Rx's Medication Instructions Recorded benzonatate 100 mg capsule 100 mg PO TIDP PRN Cough #30 caps 10/26/23 doxycycline hyclate 100 mg capsule 100 mg PO Q12 10 days #20 caps 10/26/23 guaifenesin 600 mg tablet, 600 - 1,200 mg (1 - 2 x 600 mg) PO 10/26/23 extended release 12 hr (Mucinex) BIDP PRN Congestion #30 tabs methylprednisolone 4 mg tablets in 4 mg PO DIRECTED 6 days #21 tabs 10/26/23 a dose pack Allergies Allergy/AdvReac Type Severity Reaction Status Date / Time hydrocodone [HYDROCODONE] Allergy Severe EXACERBATION Verified 10/22/23 15:14 [facility] oxycodone [OXYCODONE] Allergy Severe EXACERBATION Verified 10/22/23 15:14 [facility] verapamil [VERAPAMIL] Allergy Severe EXACERBATION Verified 10/22/23 15:14 [facility] rivaroxaban [RIVAROXABAN] Allergy Intermediate I-RASH Verified 10/22/23 15:14 amoxicillin Allergy Verified 10/26/23 12:17 [facility] Disclaimer: The information contained in this section may have been updated after the patient was seen, as this information can be updated by other users. Medical History (Updated 10/26/23 @ 12:48 by Mahesh Pagan APRN) Pacemaker Pulmonary embolism Cancer Hyperlipidemia Atrial fibrillation Hyperkalemia Abnormal Holter exam 1st degree AV block Sinus pause Protein C deficiency Prolonged GA interval Dyspnea Chest pain Dizziness Near syncope Abnormal electrocardiography Surgical History (Updated 10/26/23 @ 12:27 by Shahla Harper RN) History of hysterectomy History of cholecystectomy History of appendectomy History of bladder surgery History of tubal ligation History of cardiac catheterization Social History Smoking Status: Never smoker second hand exposure: No alcohol intake: never substance use type: denies use current occupational status: unemployed Travel in the last 8 weeks: Inside the [place] household members: spouse housing: house current occupational exposures/hazards: No caffeine: Yes ROS Obtained: Yes All systems reviewed & no additional complaints except as documented Constitutional Constitutional: Reports body ache, Reports chills, Reports fatigue, Denies fever(s) and Reports poor appetite Eyes Eyes: Reports system reviewed and no additional complaints, except as documented ENT Ears, Nose, Mouth, and Throat: Reports as per HPI Cardiovascular Cardiovascular: Reports system reviewed and no additional complaints, except as documented and Denies chest pain Respiratory Respiratory: Denies shortness of breath, Reports chest congestion, Reports cough, Denies stridor and Denies wheezing Gastrointestinal Gastrointestingal: Reports system reviewed and no additional complaints, except as documented; Denies abdominal pain, diarrhea or vomiting Musculoskeletal Musculoskeletal: Reports system reviewed and no additional complaints, except as documented and Denies arthralgias Integumentary/Breasts Skin/Breast: Reports system reviewed and no additional complaints, except as documented and Denies rash Neurologic Neurologic: Denies paresthesias Endocrine Endocrine: Reports fatigue Allergic/Immunologic Allergic/Immunologic: Denies wheezing Physical Exam General General appearance: alert and in no apparent distress Eye Eye exam: Present normal appearance, PERRL and EOMI ENT ENT exam: Present mucous membranes moist and normal external ear exam Expanded ENT Exam External ear exam: Present normal external inspection TM/Canal exam: Bilateral TM: erythema and bulging Nose exam: Absent sinus tenderness Nasal speculum exam: Bilateral: normal Mouth exam: Present normal external inspection; Absent drooling Teeth exam: Present normal inspection Throat exam: Present tonsillar erythema and tonsillomegaly Neck Neck exam: Present normal inspection, full ROM and trachea midline; Absent tenderness, lymphadenopathy or thyromegaly Chest Chest inspection: Present normal inspection and symmetric chest wall rise; Absent tenderness or rash Respiratory Respiratory exam: Present normal lung sounds bilaterally; Absent respiratory distress, wheezes, stridor or accessory muscle use Cardiovascular Cardiovascular exam: Present regular rate, normal rhythm and normal heart sounds Abdominal Exam Abdominal exam: Present soft; Absent distention, tenderness, guarding, rebound or rigidity Extremities Exam Extremities exam: Present normal inspection, full ROM and normal capillary refill; Absent tenderness or calf tenderness Back Exam Back exam: Present normal inspection and full ROM; Absent tenderness Neurological Exam Neurological exam: Present alert and oriented X3 Psychiatric Psychiatric exam: Present normal affect and normal mood Skin Skin exam: Present warm, dry, intact and normal color Lymphatic Lymphatic Findings: no adenopathy Medical Decision Making Medical Records Medical records reviewed: No I reviewed the patient's medical records. [place]ish[place] Inquiry Pt receiving controlled substance: No Lab Data Lab results reviewed: Yes I reviewed the patient's lab results.
[2023-10-26 12:28] LABS: UTC Influenza A Antigen Negative (Negative); UTC Strep Screen (Rapid) Negative (Negative)
[2023-10-26 12:29] LABS: UTC Influenza B Antigen Negative (Negative)
[2023-10-26 12:49] VITALS: BP 128/78; PULSE 78; RESP 21; TEMP 36.6; O2SAT 97
[2023-10-26 14:54] LABS: Adenovirus,PCR Not Detected (NotDetected); Bordetella Pertussis Not Detected (NotDetected); Chlamydophila Pneumoniae, PCR Not Detected (NotDetected); Coronavirus 229E Not Detected (NotDetected); Coronavirus NL63 Not Detected (NotDetected); Coronavirus OC43 Not Detected (NotDetected); Coronovirus HKU1,PCR Not Detected (NotDetected); Human Metapneumovirus Not Detected (NotDetected); Influenza A, PCR Not Detected (NotDetected); Influenza AH1, 2009 Not Detected (NotDetected); Influenza AH1, PCR Not Detected (NotDetected); Influenza AH3,PCR Not Detected (NotDetected); Influenza B, PCR Not Detected (NotDetected); Mycoplasma Pneumoniae, PCR Not Detected (NotDetected); Parainfluenza 1, PCR Not Detected (NotDetected); Parainfluenza 2, PCR Not Detected (NotDetected); Parainfluenza 3, PCR Not Detected (NotDetected); Parainfluenza 4, PCR Not Detected (NotDetected); Respiratory Syncytial Virus Not Detected (NotDetected); Rhinovirus/Enterovirus Not Detected (NotDetected)
[2023-10-26 16:52] LABS: Coronavirus 19, PCR Detected (NotDetected)
--- NOTE | 2023-10-26 18:30 | PC.NURSE ---
PATIENT NOTIFIED OF POSITIVE COVID TEST
== END 2023-10-26 12:54 | disposition home or self-care (01) ==
PROVIDERS: Emergency Provider Nurse Practitioner Family; PCP Internal Medicine
DX: U07.1 COVID-19 (principal); J20.8 Acute bronchitis due to other specified organisms; R51.9 Headache, unspecified; R05.9 Cough, unspecified
CPT/HCPCS: 87581; 87632; 87635; 87798; 87804; 87880; 99204; 99212; G0463

== ENCOUNTER 2023-11-21 11:21 | Outpatient (CLI) | payer OTHER, SELFPAY ==
[2023-11-21 11:51] LABS: PHA INR Fingerstick 2.6 (0.9-1.1)
== END 2023-11-21 11:53 ==
LOC: ACC 11:21
PROVIDERS: PCP Internal Medicine; Visit Provider Internal Medicine
DX: I48.91 Unspecified atrial fibrillation (principal); Z79.01 Long term (current) use of anticoagulants
CPT/HCPCS: 85610; 99211; G0463

== ENCOUNTER 2023-12-08 11:11 | Outpatient (CLI) | payer OTHER, SELFPAY ==
[2023-12-08 11:44] LABS: Basophils # 0.1 K/mm3 (0-0.2); Basophils % 1.5 % (0.1-2.0); Eosinophils # 0.2 K/mm3 (0.0-0.4); Eosinophils % 2.6 % (0.1-12.0); Hematocrit 44.1 % (37.0-47.0); Lymphocytes # 2.4 K/mm3 (0.7-4.5); Lymphocytes % 39.7 % (10-50); Mean Corpuscular HGB Conc 31.8 g/dL (31.8-35.4); Mean Corpuscular Volume 94.4 fl (81-99); Mean Platelet Volume 7.8 fl (7.4-10.4); Monocytes # 0.4 K/mm3 (0.1-1.0); Monocytes % 6.7 % (1.7-9.3); Neutrophils % 49.6 % (37.0-80.0); Platelet Count 387 K/mm3 (142-424); Red Blood Count 4.67 M/mm3 (4.20-5.40); Red Cell Distribution Width 13.8 % (11.5-17.5); White Blood Count 6.1 K/mm3 (4.8-10.8)
[2023-12-08 12:09] LABS: Alanine Aminotransferase 33 U/L (12-78); Albumin Level 4.2 g/dl (3.5-5.0); Alkaline Phosphatase 67 U/L (38-126); Anion Gap 9.9 mEq/L (5-15); Aspartate Amino Transferase 46 U/L (14-36); Bilirubin,Indirect 0.9 mg/dL (0.0-0.9); Bilirubin,Total 0.9 mg/dl (0.2-1.3); Blood Urea Nitrogen 11 mg/dl (7-17); Calcium 9.6 mg/dl (8.4-10.2); Carbon Dioxide 29 mmol/L (22.0-30.0); Chloride 103 mmol/L (98-107); Chol/HDL Ratio 4.6 (1-3.5); Cholesterol 290 mg/dl (140-200); Estimated Glomerular Filt Rate 73 ml/min (>60); GFR (African American) 89 ML/MIN (>60); Glucose 105 mg/dl (74-100); HDL Cholesterol 63 mg/dl (40-60); Magnesium 1.9 mg/dl (1.6-2.3); Potassium 4.9 mmoL/L (3.5-5.1); Sodium 137 mmol/L (136-145); Total Protein,Serum 7.4 g/dl (6.3-8.2); Triglycerides 137 mg/dl (30-150); VLDL Cholesterol 27 mg/dL (0-40)
[2023-12-08 12:20] LABS: Direct LDL Cholesterol 166.15 mg/dL (100-129)
[2023-12-08 12:24] LABS: Free T4 (Free Thyroxine) 0.99 ng/dl (0.78-2.19)
[2023-12-08 12:39] LABS: Thyroid Stimulating Hormone 2.31 uIU/mL (0.465-4.68)
== END 2023-12-08 23:59 | disposition home or self-care (01) ==
LOC: LAB 11:11
PROVIDERS: PCP Internal Medicine; Visit Provider Nurse Practitioner
DX: I10 Essential (primary) hypertension (principal); R00.2 Palpitations; R94.31 Abnormal electrocardiogram [ECG] [EKG]; Z95.0 Presence of cardiac pacemaker; Z86.718 Personal history of other venous thrombosis and embolism
CPT/HCPCS: 36415; 80048; 80061; 80076; 83735; 84439; 84443; 85025

== ENCOUNTER 2024-01-06 15:01 | Outpatient (CLI) | payer OTHER, SELFPAY ==
[2024-01-06 15:49] LABS: PHA INR Fingerstick 3.1 (0.9-1.1)
== END 2024-01-06 15:53 ==
LOC: ACC 15:02
PROVIDERS: PCP Internal Medicine; Visit Provider Internal Medicine
DX: Z79.01 Long term (current) use of anticoagulants (principal); I48.91 Unspecified atrial fibrillation
CPT/HCPCS: 85610; 99211; G0463

== ENCOUNTER 2024-02-16 10:56 | Outpatient (CLI) | payer OTHER, SELFPAY ==
[2024-02-16 15:20] LABS: PHA INR Fingerstick 1.9 (0.9-1.1)
== END 2024-02-16 15:22 ==
LOC: ACC 10:56
PROVIDERS: PCP Internal Medicine; Visit Provider Internal Medicine
DX: Z79.01 Long term (current) use of anticoagulants (principal)
CPT/HCPCS: 85610; 99211; G0463

== ENCOUNTER 2024-02-20 15:00 | Outpatient (CLI) | payer OTHER, SELFPAY ==
[2024-02-20 15:38] LABS: PHA INR Fingerstick 1.8 (0.9-1.1)
== END 2024-02-20 23:59 | disposition home or self-care (01) ==
LOC: INF 15:01
PROVIDERS: PCP Internal Medicine; Visit Provider Internal Medicine
DX: I48.91 Unspecified atrial fibrillation (principal)
CPT/HCPCS: 85610

== ENCOUNTER 2024-04-02 09:31 | Outpatient (CLI) | payer OTHER, SELFPAY | END 2024-04-02 12:44 | LOC: ACC 09:32 | PROVIDERS: PCP Internal Medicine; Visit Provider Internal Medicine | DX: I48.91 Unspecified atrial fibrillation (principal); Z79.01 Long term (current) use of anticoagulants | CPT/HCPCS: 85610; 99211; G0463 ==

== ENCOUNTER 2024-04-20 09:28 | Outpatient (CLI) | payer OTHER, SELFPAY ==
[2024-04-20 10:02] LABS: PHA INR Fingerstick 2.2 (0.9-1.1)
== END 2024-04-20 10:03 ==
LOC: ACC 09:29
PROVIDERS: PCP Internal Medicine; Visit Provider Internal Medicine
DX: I48.91 Unspecified atrial fibrillation (principal); Z79.01 Long term (current) use of anticoagulants
CPT/HCPCS: 85610; 99211; G0463

== ENCOUNTER 2024-05-20 08:41 | Outpatient (CLI) | payer OTHER, SELFPAY ==
[2024-05-20 09:00] LABS: PHA INR Fingerstick 2.7 (0.9-1.1)
== END 2024-05-20 09:01 ==
LOC: ACC 08:42
PROVIDERS: PCP Internal Medicine; Visit Provider Internal Medicine
DX: I48.91 Unspecified atrial fibrillation (principal); Z79.01 Long term (current) use of anticoagulants
CPT/HCPCS: 85610; 99211; G0463

== ENCOUNTER 2024-05-31 08:17 | Outpatient (CLI) | payer OTHER, SELFPAY ==
--- NOTE | 2024-05-31 08:18 | MM_ITS ---
PROCEDURE INFORMATION: Exam: MG Bilateral Screening 3D Mammography Exam date and time: 05/31/2024 8:28 AM Age: 58 years old Clinical indication: Screening. Personal history of non-Hodgkin's lymphoma. TECHNIQUE: Imaging protocol: Bilateral Screening tomosynthesis and 2D mammography including computer-aided detection (CAD) when performed. COMPARISON: 1. MG MM DIG SCREENING MAMM BI W/CAD 05/08/2023 7:53 AM 2. MG MM DIG SCREENING MAMM BI W/CAD 05/23/2021 1:57 PM 3. MG MM DIG MAMM DX UNILAT RT CAD 11/20/2020 2:17 PM 4. MG MM DIG MAMM DX UNILAT RT CAD 06/02/2020 12:57 PM FINDINGS: MAMMOGRAPHY: Breast composition: The breasts are almost entirely fatty. Mass: None. Architectural distortion: None. Calcifications: No suspicious calcifications. Asymmetric density: No developing asymmetry. Skin thickening: None. Axillary adenopathy: None. Other: Pacemaker in the left axilla, limits evaluation and accentuates the importance of clinical breast exam. IMPRESSION: No mammographic evidence of malignancy. Annual screening is recommended unless otherwise clinically indicated. ASSESSMENT: BI-RADS Category 1: Negative.
== END 2024-05-31 23:59 | disposition home or self-care (01) ==
LOC: RAD 08:18
PROVIDERS: PCP Internal Medicine; Visit Provider Internal Medicine
DX: Z12.31 Encounter for screening mammogram for malignant neoplasm of breast (principal)
CPT/HCPCS: 77063; 77067

== ENCOUNTER 2024-06-07 10:51 | Outpatient (CLI) | payer OTHER, SELFPAY ==
[2024-06-07 11:37] LABS: Basophils # 0.1 K/mm3 (0-0.2); Eosinophils # 0.1 K/mm3 (0.0-0.4); Monocytes # 0.4 K/mm3 (0.1-1.0)
[2024-06-07 11:50] LABS: INR 2.94 (0.9-1.1)
[2024-06-07 11:54] LABS: Albumin Level 4.5 g/dl (3.5-5.0); Chloride 101 mmol/L (98-107); Sodium 137 mmol/L (136-145)
[2024-06-07 11:55] LABS: Potassium 4.5 mmoL/L (3.5-5.1)
[2024-06-07 11:57] LABS: Alanine Aminotransferase 24 U/L (12-78); Anion Gap 13.5 mEq/L (5-15); Aspartate Amino Transferase 40 U/L (14-36); Bilirubin,Unconjugated 0.9 mg/dL (0.0-1.1); Blood Urea Nitrogen 11 mg/dl (7-17); Carbon Dioxide 27 mmol/L (22.0-30.0); Cholesterol 138 mg/dl (140-200); Estimated Glomerular Filt Rate 64 ml/min (>60); GFR (African American) 77 ML/MIN (>60); Total Protein,Serum 7.2 g/dl (6.3-8.2); Triglycerides 103 mg/dl (30-150); VLDL Cholesterol 21 mg/dL (0-40)
[2024-06-07 11:58] LABS: Alkaline Phosphatase 76 U/L (38-126); Bilirubin,Direct 0.1 mg/dl (0.0-0.4); Bilirubin,Indirect 0.9 mg/dL (0.0-0.9); Calcium 9.3 mg/dl (8.4-10.2); Chol/HDL Ratio 1.8 (1-3.5); Glucose 110 mg/dl (74-100); HDL Cholesterol 78 mg/dl (40-60); Magnesium 1.9 mg/dl (1.6-2.3)
[2024-06-07 12:09] LABS: Direct LDL Cholesterol 37.89 mg/dL (100-129)
[2024-06-07 12:14] LABS: Free T4 (Free Thyroxine) 0.73 ng/dl (0.78-2.19)
[2024-06-07 12:15] LABS: Hemoglobin 14.4 g/dL (12.2-16.2)
[2024-06-07 12:29] LABS: Thyroid Stimulating Hormone 1.58 uIU/mL (0.465-4.68)
[2024-06-07 12:39] LABS: Eosinophils % 2.1 % (0.1-12.0); Hematocrit 43.2 % (37.0-47.0); Lymphocytes # 2.3 K/mm3 (0.7-4.5); Mean Corpuscular HGB Conc 33.3 g/dL (31.8-35.4); Mean Corpuscular Volume 87.1 fl (81-99); Mean Platelet Volume 9.7 fl (7.4-10.4); Neutrophils # 2.4 K/mm3 (1.8-7.8); Neutrophils % 45.7 % (37.0-80.0); Platelet Count 296 K/mm3 (142-424); Red Blood Count 4.96 M/mm3 (4.20-5.40); White Blood Count 5.1 K/mm3 (4.8-10.8)
--- NOTE | 2024-06-07 14:22 | HMH.PHAINT1 ---
Pharmacy Intervention Comments: 06/07/24--CHANGED DOSE TO WARFARIN 2.5 MG ON MON/WED/FRI; 5 MG ON FRI/FRI/FRI/FRI. CURRENT TAKING OZEMPIC AND IS LIKELY EATING LESS THAN USUAL. INR TODAY VIA VENIPUNCTURE WAS 2.94.
== END 2024-06-07 23:59 | disposition home or self-care (01) ==
LOC: LAB 10:52
PROVIDERS: PCP Internal Medicine; Visit Provider Nurse Practitioner
DX: I10 Essential (primary) hypertension (principal); E78.5 Hyperlipidemia, unspecified; R74.8 Abnormal levels of other serum enzymes; E66.9 Obesity, unspecified; Z68.41 Body mass index [BMI] 40.0-44.9, adult; Z95.0 Presence of cardiac pacemaker; Z86.718 Personal history of other venous thrombosis and embolism
CPT/HCPCS: 36415; 80048; 80061; 80076; 83735; 84439; 84443; 85025; 85610

== ENCOUNTER 2024-07-09 14:32 | Outpatient (CLI) | payer OTHER, SELFPAY ==
[2024-07-09 15:26] LABS: PHA INR Fingerstick 2.1 (0.9-1.1)
== END 2024-07-09 15:28 ==
LOC: ACC 14:33
PROVIDERS: PCP Internal Medicine; Visit Provider Internal Medicine
DX: Z79.01 Long term (current) use of anticoagulants (principal); I48.91 Unspecified atrial fibrillation
CPT/HCPCS: 85610; 99211; G0463

== ENCOUNTER 2024-07-28 11:30 | Outpatient (CLI) | payer OTHER, SELFPAY | END 2024-07-28 23:59 | disposition home or self-care (01) | LOC: LAB.DROPOF 07-29 09:10 | PROVIDERS: PCP Nurse Practitioner Family; Visit Provider Nurse Practitioner Family | DX: N39.0 Urinary tract infection, site not specified (principal); B96.20 Unspecified Escherichia coli [E. coli] as the cause of diseases classified elsewhere | CPT/HCPCS: 87086; 87088; 87186 ==

== ENCOUNTER 2024-08-04 15:05 | Outpatient (CLI) | payer OTHER, SELFPAY ==
--- OUTSIDE RECORDS SUMMARY | 2024-08-04 15:07 | XMS_ITS | Data Portability ---
Author Organization formerly [facility] Address [address] [place] [address] Care Team Providers Care Header Dock Name Role Phone JEAN CRUZ Hematology/Oncology STEPHANIE PEÑA Primary Care Provider [phone] Assessment Encounter Date Assessment Date Assessment LastModified by Organization Details LastModified Time 01/11/2019 01/11/2019 Ms. Odell is doing well, with no evidence of lymphoma recurrence, or secondary cancers related to her cancer treatment; I will see her back in 1 year. She will be scheduled for mammograms in Apr. Not available 01/17/2019 18:59:51 01/12/2020 01/12/2020 Ms. Odell is doing well, now 30 years out from diagnosis of lymphoma, with no evidence of recurrence, or complications from therapy. I'll see her in 1 year; she will be scheduled for mammograms in April. Not available 01/15/2020 12:48:10 01/10/2021 01/10/2021 Ms. 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 Her 10 year risk of cardiovascular disease was calculated using the [place] calculator, to be just over 8%, too low for a statin. We discussed that at some point she will become old enough that her 10 year risk will be high enough to qualify for a statin. She will RTC in 1 year, with labs. Not available 01/14/2021 09:12:49 01/03/2022 01/03/2022 Ms. 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 She has had significant abdominal pain for a couple of weeks, not improving. She will be set up for a CT at [facility] to evaluate for diverticulitis. Her total cholesterol and LDL are somewhat high; her 10 year risk of cardiovascular disease was calculated, using the [place] calculator, to be 6.6%, not high enough to recommend a statin. She will RTC in 1 year, with labs. Not available 01/05/2022 20:01:56 Plan of Treatment Reminders Order Date Submit Date Provider Last Modified By Organization Details Last Modified Time Details Appointments None record ed. Lab None record ed. Referral None record ed. Procedures None record ed. Surgeries None record ed. Imaging None record ed. Medication Orders None record ed. Patient TargetsNo targets recorded. Patient Instructions Encounter Date Encounter Id Patient Instructions Last Modified By Organization Details Last Modified Time 01/11/2019 [id number] body mass index: care instructions Not available 01/17/2019 19:01:07 Body Mass Index: Care Instructions-LC Not available 01/17/2019 19:01:07 learning about healthy weight Not available 01/17/2019 19:01:07 01/10/2021 [id number] Body Mass Index: Care Instructions-LC Not available 01/14/2021 09:09:46 01/03/2022 [id number] Body Mass Index: Care Instructions-LC Not available 01/05/2022 20:02:41 Reason for Referral None Reported. Results Created Date Observation Date Name Description Value Unit Range Abnormal Flag Note LastModifiedBy Organization Detail LastModifiedTime 01/12/2001/11/2019 CBC w/ auto diff white blood cells 5.9 K/uL 3.8-10 .8 normal Not Available [facility] [address] [place], [address], 01/11/2019 09:02:43 01/12/2001/11/2019 CBC w/ auto diff red blood cells 4.35 M/uL 3.80-5 .20 normal Not Available [facility] [address] [place], [address], 01/11/2019 09:02:43 01/12/2001/1101/11/2019 CBC w/ auto diff hemoglobin 12.7 g/dL 12.0-1 6.0 normal Not Available [facility] [address] [place] [address], [address], 01/11/2019 09:02:43 01/12/20 19 01/11/2019 CBC w/ auto diff hematocrit 37.6 % 35.0-4 7.0 normal Not Available [facility] [address] [place] [address], [address], 01/11/2019 09:02:43 01/12/20 19 01/11/2019 CBC w/ auto diff MCV 87 fL 80-100 normal Not Available [facility] [address] [place] [address], [address], 01/11/2019 09:02:43 01/12/2001/11/2019 CBC w/ auto diff MCH 29 pg 26-35 normal Not Available [facility] [address] [place] [address], [address], 01/11/2019 09:02:43 01/12/2001/11/2019 CBC w/ auto diff MCHC 34 g/dL 32-36 normal Not Available [facility] [address] [place] [address], [address], 01/11/2019 09:02:43 01/12/2001/11/2019 CBC w/ auto diff RDW 14.5 % 11.0-1 5.0 normal Not Available [facility] [address] [place] [address], [address], 01/11/2019 09:02:43 01/12/2001/11/2019 CBC w/ auto diff MPV 7.3 fL 6.2-10 .5 normal Not Available [facility] [address] [place] [address], [address], 01/11/2019 09:02:43 01/12/2001/11/2019 CBC w/ auto diff platelet count 250 K/uL 130-40 0 normal Not Available [facility] [address] [place] [address], [address], 01/11/2019 09:02:43 01/12/2001/11/2019 CBC w/ auto diff neutrophil,a bsolute 2.4 K/uL 1.6-8. 4 normal Not Available [facility] [address] [place] [address], [address], 01/11/2019 09:02:43 01/12/2001/11/2019 CBC w/ auto diff lymphocyte,a bsolute 2.8 K/uL 0.4-5. 1 normal Not Available [facility] [address] [place] [address], [address], 01/11/2019 09:02:43 01/12/2001/11/2019 CBC w/ auto diff monocyte,abs olute 0.5 K/uL 0.0-1. 2 normal Not Available [facility] [address] [place] [address], [address], 01/11/2019 09:02:43 01/12/2001/11/2019 CBC w/ auto diff eosinophil,a bsolute 0.2 K/uL 0.0-0. 8 normal Not Available [facility] [address] [place] [address], [address], 01/11/2019 09:02:43 01/12/2001/11/2019 CBC w/ auto diff basophil,abs olute 0.1 K/uL 0.0-0. 3 normal Not Available [facility] [address] [place] [address], [address], 01/11/2019 09:02:43 01/12/2001/11/2019 CBC w/ auto diff % neutrophils 40.6 % 42.0-7 8.0 low Not Available [facility] [address] [place] [address], [address], 01/11/2019 09:02:43 01/12/2001/11/2019 CBC w/ auto diff % lymphocytes 46.9 % 11.0-4 7.0 normal Not Available [facility] [address] [place] [address], [address], 01/11/2019 09:02:43 01/12/2001/11/2019 CBC w/ auto diff % monocytes 8.2 % 0.0-11 .0 normal Not Available [facility] [address] [place] [address], [address], 01/11/2019 09:02:43 01/12/2001/11/2019 CBC w/ auto diff % eosinophils 3.4 % 0.0-7. 0 normal Not Available [facility] [address] [place] [address], [address], 01/11/2019 09:02:43 01/12/2001/11/2019 CBC w/ auto diff % basophils 0.9 % 0.0-3. 0 normal Not Available [facility] [address] [place] [address], [address], 01/11/2019 09:02:43 01/12/2001/11/2019 CBC w/ auto diff nucleated red cells 0.1 % 0.0-0. 9 normal Not Available [facility] [address] [place] [address], [address], 01/11/2019 09:02:43 01/12/2001/11/2019 CBC w/ auto diff nucleated RBCs, absolute 0.01 K/uL not estab. normal Not Available [facility] [address] [place] [address], [address], 01/11/2019 09:02:43 01/12/2001/11/2019 CMP, serum or plasm a glucose 108 mg/dL 74-100 high Not Available [facility] [address] [place] [address], [address], 01/11/2019 09:17:19 01/12/2001/11/2019 CMP, serum or plasm a blood urea nitrogen 10 mg/dL 6-20 normal Not Available [facility] [address] [place] [address], [address], 01/11/2019 09:17:19 01/12/2001/11/2019 CMP, serum or plasm a creatinine 0.92 mg/dL 0.50-0 .95 normal Not Available [facility] [address] [place] [address], [address], 01/11/2019 09:17:19 01/12/2001/11/2019 CMP, serum or plasm a BUN/creatini ne ratio 11 (calc ) 10-20 normal Not Available [facility] [address] [place] [address], [address], 01/11/2019 09:17:19 01/12/2001/11/2019 CMP, serum or plasm a sodium 139 mmol/ L 136-14 5 normal Not Available [facility] [address] [place] [address], [address], 01/11/2019 09:17:19 01/12/2001/11/2019 CMP, serum or plasm a potassium 4.2 mmol/ L 3.4-5. 0 normal Not Available [facility] [address] [place] [address], [address], 01/11/2019 09:17:19 01/12/2001/11/2019 CMP, serum or plasm a chloride 101 mmol/ L 98-107 normal Not Available [facility] [address] [place] [address], [address], 01/11/2019 09:17:19 01/12/2001/11/2019 CMP, serum or plasm a carbon dioxide 24 mmol/ L 20-32 normal Not Available [facility] [address] [place] [address], [address], 01/11/2019 09:17:19 01/12/2001/11/2019 CMP, serum or plasm a anion gap 14 (calc ) 7-25 normal Not Available [facility] [address] [place] [address], [address], 01/11/2019 09:17:19 01/12/2001/11/2019 CMP, serum or plasm a calcium 9.0 mg/dL 8.6-10 .2 normal Not Available [facility] [address] [place] [address], [address], 01/11/2019 09:17:19 01/12/2001/11/2019 CMP, serum or plasm a total protein 6.8 g/dL 6.4-8. 3 normal Not Available [facility] [address] [place] [address], [address], 01/11/2019 09:17:19 01/12/2001/11/2019 CMP, serum or plasm a albumin 3.9 g/dL 3.5-5. 2 normal Not Available [facility] [address] [place] [address], [address], 01/11/2019 09:17:19 01/12/2001/11/2019 CMP, serum or plasm a globulin 2.9 g/dL_ (calc ) 1.5-4. 5 normal Not Available [facility] [address] [place] [address], [address], 01/11/2019 09:17:19 01/12/2001/11/2019 CMP, serum or plasm a albumin/glob ulin ratio 1.3 (calc ) 1.1-2. 5 normal Not Available [facility] [address] [place] [address], [address], 01/11/2019 09:17:19 01/12/2001/11/2019 CMP, serum or plasm a bilirubin, total 0.4 mg/dL 0.1-1. 2 normal Not Available [facility] [address] [place] [address], [address], 01/11/2019 09:17:19 01/12/2001/11/2019 CMP, serum or plasm a alkaline phosphatase 55 U/L 35-105 normal Not Available [facility] [address] [place], [address], 01/11/2019 09:17:19 01/12/2001/11/2019 CMP, serum or plasm a AST 16 U/L 0-32 normal Not Available [facility] [address] [place] [address], [address], 01/11/2019 09:17:19 01/12/2001/11/2019 CMP, serum or plasm a ALT 12 U/L 0-33 normal Not Available [facility] [address] [place] [address], [address], 01/11/2019 09:17:19 01/12/2001/11/2019 CMP, serum or plasm a GFR 81 >= 60 normal Not Available [facility] [address] [place], [address], 01/11/2019 09:17:19 01/12/2001/11/2019 CMP, serum or plasm a GFR non- 70 >= 60 normal NOT E NEW calcu latio n for GFR is based on the Natio nal Kidne y Found ation CKD-E PI equat ion and allow s for repor ting GFR value s great er than 60 mL/mi n/1.7 3 m2. This calcu latio n has not been valid ated for patie nts less than 18 yrs., pregn ant women and Hispa nics. Chron ic kidne y disea se is defin ed as kidne y damag e or GFR less than 60 mL/mi n/1.7 3 m2 for 3 month s or longe r. Not Available [facility] [address] [place], [address], 01/11/2019 09:17:19 01/12/2001/12/2020 CBC w/ auto diff white blood cells 5.1 K/uL 3.8-10 .8 normal Not Available [facility] [address] [place] [address], [address], 01/12/2020 09:07:06 01/12/20 20 01/12/2020 CBC w/ auto diff red blood cells 4.59 M/uL 3.80-5 .20 normal Not Available [facility] [address] [place] [address], [address], 01/12/2020 09:07:06 01/12/20 20 01/12/2020 CBC w/ auto diff hemoglobin 13.3 g/dL 12.0-1 6.0 normal Not Available [facility] [address] [place] [address], [address], 01/12/2020 09:07:06 01/12/20 20 01/12/2020 CBC w/ auto diff hematocrit 39.6 % 35.0-4 7.0 normal Not Available [facility] [address] [place] [address], [address], 01/12/2020 09:07:06 01/12/2001/12/2020 CBC w/ auto diff MCV 86 fL 80-100 normal Not Available [facility] [address] [place] [address], [address], 01/12/2020 09:07:06 01/12/2001/12/2020 CBC w/ auto diff MCH 29 pg 26-35 normal Not Available [facility] [address] [place] [address], [address], 01/12/2020 09:07:06 01/12/20 20 01/12/2020 CBC w/ auto diff MCHC 34 g/dL 32-36 normal Not Available [facility] [address] [place] [address], [address], 01/12/2020 09:07:06 01/12/20 20 01/12/2020 CBC w/ auto diff RDW 14.5 % 11.0-1 5.0 normal Not Available [facility] [address] [place] [address], [address], 01/12/2020 09:07:06 01/12/20 20 01/12/2020 CBC w/ auto diff MPV 7.5 fL 6.2-10 .5 normal Not Available [facility] [address] [place] [address], [address], 01/12/2020 09:07:06 01/12/20 20 01/12/2020 CBC w/ auto diff platelet count 268 K/uL 130-40 0 normal Not Available [facility] [address] [place] [address], [address], 01/12/2020 09:07:06 01/12/20 20 01/12/2020 CBC w/ auto diff neutrophil,a bsolute 2.3 K/uL 1.6-8. 4 normal Not Available [facility] [address] [place] [address], [address], 01/12/2020 09:07:06 01/12/20 20 01/12/2020 CBC w/ auto diff lymphocyte,a bsolute 2.1 K/uL 0.4-5. 1 normal Not Available [facility] [address] [place] [address], [address], 01/12/2020 09:07:06 01/12/20 20 01/12/2020 CBC w/ auto diff monocyte,abs olute 0.4 K/uL 0.0-1. 2 normal Not Available [facility] [address] [place] [address], [address], 01/12/2020 09:07:06 01/12/20 20 01/12/2020 CBC w/ auto diff eosinophil,a bsolute 0.2 K/uL 0.0-0. 8 normal Not Available [facility] [address] [place] [address], [address], 01/12/2020 09:07:06 01/12/20 20 01/12/2020 CBC w/ auto diff basophil,abs olute 0.1 K/uL 0.0-0. 3 normal Not Available [facility] [address] [place] [address], [address], 01/12/2020 09:07:06 01/12/20 20 01/12/2020 CBC w/ auto diff % neutrophils 44.0 % 42.0-7 8.0 normal Not Available [facility] [address] [place] [address], [address], 01/12/2020 09:07:06 01/12/2001/12/2020 CBC w/ auto diff % lymphocytes 41.2 % 11.0-4 7.0 normal Not Available [facility] [address] [place] [address], [address], 01/12/2020 09:07:06 01/12/2001/12/2020 CBC w/ auto diff % monocytes 8.1 % 0.0-11 .0 normal Not Available [facility] [address] [place] [address], [address], 01/12/2020 09:07:06 01/12/2001/12/2020 CBC w/ auto diff % eosinophils 4.3 % 0.0-7. 0 normal Not Available [facility] [address] [place] [address], [address], 01/12/2020 09:07:06 01/12/20 20 01/12/2020 CBC w/ auto diff % basophils 2.4 % 0.0-3. 0 normal Not Available [facility] [address] [place] [address], [address], 01/12/2020 09:07:06 01/12/2001/12/2020 CBC w/ auto diff nucleated red cells 0.0 % 0.0-0. 9 normal Not Available [facility] [address] [place] [address], [address], 01/12/2020 09:07:06 01/12/2001/12/2020 CBC w/ auto diff nucleated RBCs, absolute 0.00 K/uL not estab. normal Not Available [facility] [address] [place] [address], [address], 01/12/2020 09:07:06 01/12/20 20 01/12/2020 CMP, serum or plasm a glucose 105 mg/dL 74-100 high Not Available [facility] [address] [place] [address], [address], 01/12/2020 09:32:21 01/12/20 20 01/12/2020 CMP, serum or plasm a blood urea nitrogen 8 mg/dL 6-20 normal Not Available [facility] [address] [place] [address], [address], 01/12/2020 09:32:21 01/12/20 20 01/12/2020 CMP, serum or plasm a creatinine 0.86 mg/dL 0.50-0 .95 normal Not Available [facility] [address] [place] [address], [address], 01/12/2020 09:32:21 01/12/20 20 01/12/2020 CMP, serum or plasm a BUN/creatini ne ratio 9 (calc ) 10-20 low Not Available [facility] [address] [place] [address], [address], 01/12/2020 09:32:21 01/12/20 20 01/12/2020 CMP, serum or plasm a sodium 139 mmol/ L 136-14 5 normal Not Available [facility] [address] [place] [address], [address], 01/12/2020 09:32:21 01/12/20 20 01/12/2020 CMP, serum or plasm a potassium 4.2 mmol/ L 3.4-5. 0 normal Not Available [facility] [address] [place] [address], [address], 01/12/2020 09:32:21 01/12/20 20 01/12/2020 CMP, serum or plasm a chloride 103 mmol/ L 98-107 normal Not Available [facility] [address] [place] [address], [address], 01/12/2020 09:32:21 01/12/20 20 01/12/2020 CMP, serum or plasm a carbon dioxide 28 mmol/ L 20-32 normal Not Available [facility] [address] [place] [address], [address], 01/12/2020 09:32:21 01/12/20 20 01/12/2020 CMP, serum or plasm a anion gap 8 (calc ) 7-25 normal Not Available [facility] [address] [place] [address], [address], 01/12/2020 09:32:21 01/12/2001/12/2020 CMP, serum or plasm a calcium 9.1 mg/dL 8.6-10 .2 normal Not Available [facility] [address] [place] [address], [address], 01/12/2020 09:32:21 01/12/2001/12/2020 CMP, serum or plasm a total protein 6.7 g/dL 6.4-8. 3 normal Not Available [facility] [address] [place] [address], [address], 01/12/2020 09:32:21 01/12/2001/12/2020 CMP, serum or plasm a albumin 4.1 g/dL 3.5-5. 2 normal Not Available [facility] [address] [place] [address], [address], 01/12/2020 09:32:21 01/12/2001/12/2020 CMP, serum or plasm a globulin 2.6 g/dL_ (calc ) 1.5-4. 5 normal Not Available [facility] [address] [place] [address], [address], 01/12/2020 09:32:21 01/12/2001/12/2020 CMP, serum or plasm a albumin/glob ulin ratio 1.6 (calc ) 1.1-2. 5 normal Not Available [facility] [address] [place] [address], [address], 01/12/2020 09:32:21 01/12/20 20 01/12/2020 CMP, serum or plasm a bilirubin, total 0.3 mg/dL 0.1-1. 2 normal Not Available [facility] [address] [place] [address], [address], 01/12/2020 09:32:21 01/12/20 20 01/12/2020 CMP, serum or plasm a alkaline phosphatase 58 U/L 35-105 normal Not Available [facility] [address] [place] [address], [address], 01/12/2020 09:32:21 01/12/20 20 01/12/2020 CMP, serum or plasm a AST 20 U/L 0-32 normal Not Available [facility] [address] [place] [address], [address], 01/12/2020 09:32:21 01/12/2001/12/2020 CMP, serum or plasm a ALT 12 U/L 0-33 normal Not Available [facility] [address] [place] [address], [address], 01/12/2020 09:32:21 01/12/2001/12/2020 CMP, serum or plasm a GFR 87 >= 60 normal Not Available [facility] [address] [place] [address], [address], 01/12/2020 09:32:21 01/12/2001/12/2020 CMP, serum or plasm a GFR non- 75 >= 60 normal NOT E NEW calcu latio n for GFR is based on the Natio nal Kidne y Found ation CKD-E PI equat ion and allow s for repor ting GFR value s great er than 60 mL/mi n/1.7 3 m2. This calcu latio n has not been valid ated for patie nts less than 18 yrs., pregn ant women and Hispa nics. Chron ic kidne y disea se is defin ed as kidne y damag e or GFR less than 60 mL/mi n/1.7 3 m2 for 3 month s or longe r. Not Available [facility] [address] [place] [address], [address], 01/12/2020 09:32:21 01/04/2001/03/2022 COMPL ETE BLOOD COUNT white blood cells 6.9 K/uL 3.8-10 .8 normal Not Available [facility] [address] [place] [address], [address], 01/03/2022 09:22:33 01/04/20 22 01/03/2022 COMPL ETE BLOOD COUNT red blood cells 4.85 M/uL 3.80-5 .20 normal Not Available [facility] [address] [place] [address], [address], 01/03/2022 09:22:33 01/04/20 22 01/03/2022 COMPL ETE BLOOD COUNT hemoglobin 13.6 g/dL 12.0-1 6.0 normal Not Available [facility] [address] [place] [address], [address], 01/03/2022 09:22:33 01/04/20 22 01/03/2022 COMPL ETE BLOOD COUNT hematocrit 40.8 % 35.0-4 7.0 normal Not Available [facility] [address] [place] [address], [address], 01/03/2022 09:22:33 01/04/20 22 01/03/2022 COMPL ETE BLOOD COUNT MCV 84 fL 80-100 normal Not Available [facility] [address] [place] [address], [address], 01/03/2022 09:22:33 01/04/20 22 01/03/2022 COMPL ETE BLOOD COUNT MCH 28 pg 26-35 normal Not Available [facility] [address] [place] [address], [address], 01/03/2022 09:22:33 01/04/20 22 01/03/2022 COMPL ETE BLOOD COUNT MCHC 33 g/dL 32-36 normal Not Available [facility] [address] [place] [address], [address], 01/03/2022 09:22:33 01/04/20 22 01/03/2022 COMPL ETE BLOOD COUNT RDW 15.1 % 11.0-1 5.0 high Not Available [facility] [address] [place] [address], [address], 01/03/2022 09:22:33 01/04/20 22 01/03/2022 COMPL ETE BLOOD COUNT MPV 7.1 fL 6.2-10 .5 normal Not Available [facility] [address] [place] [address], [address], 01/03/2022 09:22:33 01/04/20 22 01/03/2022 COMPL ETE BLOOD COUNT platelet count 328 K/uL 130-40 0 normal Not Available [facility] [address] [place] [address], [address], 01/03/2022 09:22:33 01/04/20 22 01/03/2022 COMPL ETE BLOOD COUNT neutrophil,a bsolute 2.9 K/uL 1.6-8. 4 normal Not Available [facility] [address] [place] [address], [address], 01/03/2022 09:22:33 01/04/20 22 01/03/2022 COMPL ETE BLOOD COUNT lymphocyte,a bsolute 3.0 K/uL 0.4-5. 1 normal Not Available [facility] [address] [place] [address], [address], 01/03/2022 09:22:33 01/04/20 22 01/03/2022 COMPL ETE BLOOD COUNT monocyte,abs olute 0.7 K/uL 0.0-1. 2 normal Not Available [facility] [address] [place] [address], [address], 01/03/2022 09:22:33 01/04/20 22 01/03/2022 COMPL ETE BLOOD COUNT eosinophil,a bsolute 0.2 K/uL 0.0-0. 8 normal Not Available [facility] [address] [place] [address], [address], 01/03/2022 09:22:33 01/04/20 22 01/03/2022 COMPL ETE BLOOD COUNT basophil,abs olute 0.1 K/uL 0.0-0. 3 normal Not Available [facility] [address] [place] [address], [address], 01/03/2022 09:22:33 01/04/20 22 01/03/2022 COMPL ETE BLOOD COUNT % neutrophils 42.0 % 42.0-7 8.0 normal Not Available [facility] [address] [place] [address], [address], 01/03/2022 09:22:33 01/04/2001/03/2022 COMPL ETE BLOOD COUNT % lymphocytes 42.8 % 11.0-4 7.0 normal Not Available [facility] [address] [place] [address], [address], 01/03/2022 09:22:33 01/04/20 22 01/03/2022 COMPL ETE BLOOD COUNT % monocytes 10.6 % 0.0-11 .0 normal Not Available [facility] [address] [place] [address], [address], 01/03/2022 09:22:33 01/04/2001/03/2022 COMPL ETE BLOOD COUNT % eosinophils 3.5 % 0.0-7. 0 normal Not Available [facility] [address] [place] [address], [address], 01/03/2022 09:22:33 01/04/20 22 01/03/2022 COMPL ETE BLOOD COUNT % basophils 1.1 % 0.0-3. 0 normal Not Available [facility] [address] [place] [address], [address], 01/03/2022 09:22:33 01/04/20 22 01/03/2022 COMPL ETE BLOOD COUNT nucleated red cells 0.0 % 0.0-0. 9 normal Not Available [facility] [address] [place] [address], [address], 01/03/2022 09:22:33 01/04/20 22 01/03/2022 COMPL ETE BLOOD COUNT nucleated RBCs, absolute 0.00 K/uL not estab. normal Not Available [facility] [address] [place] [address], [address], 01/03/2022 09:22:33 01/04/20 22 01/03/2022 COMP. METAB OLIC PANEL glucose 108 mg/dL 74-100 high Not Available [facility] [address] [place] [address], [address], 01/03/2022 09:58:10 01/04/20 22 01/03/2022 COMP. METAB OLIC PANEL blood urea nitrogen 8 mg/dL 6-20 normal Not Available [facility] [address] [place] [address], [phone], 01/03/2022 09:58:10 01/04/20 22 01/03/2022 COMP. METAB OLIC PANEL creatinine 0.91 mg/dL 0.50-0 .95 normal Not Available [facility] [address] [place] [address], [phone], 01/03/2022 09:58:10 01/04/20 22 01/03/2022 COMP. METAB OLIC PANEL BUN/creatini ne ratio 9 (calc ) 10-20 low Not Available [facility] [address] [place] [address], [phone], 01/03/2022 09:58:10 01/04/20 22 01/03/2022 COMP. METAB OLIC PANEL sodium 139 mmol/ L 136-14 5 normal Not Available [facility] [address] [place] [address], [phone], 01/03/2022 09:58:10 01/04/20 22 01/03/2022 COMP. METAB OLIC PANEL potassium 4.5 mmol/ L 3.4-5. 0 normal Not Available [facility] [address] [place] [address], [phone], 01/03/2022 09:58:10 01/04/20 22 01/03/2022 COMP. METAB OLIC PANEL chloride 100 mmol/ L 98-107 normal Not Available [facility] [address] [place] [address], [phone], 01/03/2022 09:58:10 01/04/20 22 01/03/2022 COMP. METAB OLIC PANEL carbon dioxide 28 mmol/ L 22-31 normal Not Available [facility] [address] [place] [address], [address], 01/03/2022 09:58:10 01/04/20 22 01/03/2022 COMP. METAB OLIC PANEL anion gap 11 (calc ) 7-25 normal Not Available [facility] [address] [place] [address], [address], 01/03/2022 09:58:10 01/04/20 22 01/03/2022 COMP. METAB OLIC PANEL calcium 9.8 mg/dL 8.6-10 .2 normal Not Available [facility] [address] [place] [address], [phone], 01/03/2022 09:58:10 01/04/20 22 01/03/2022 COMP. METAB OLIC PANEL total protein 7.9 g/dL 6.4-8. 3 normal Not Available [facility] [address] [place] [address], [address], 01/03/2022 09:58:10 01/04/20 22 01/03/2022 COMP. METAB OLIC PANEL albumin 4.4 g/dL 3.5-5. 2 normal Not Available [facility] [address] [place] [address], [address], 01/03/2022 09:58:10 01/04/20 22 01/03/2022 COMP. METAB OLIC PANEL globulin 3.5 g/dL_ (calc ) 1.5-4. 5 normal Not Available [facility] [address] [place] [address], [address], 01/03/2022 09:58:10 01/04/20 22 01/03/2022 COMP. METAB OLIC PANEL albumin/glob ulin ratio 1.3 (calc ) 1.1-2. 5 normal Not Available [facility] [address] [place] [address], [address], 01/03/2022 09:58:10 01/04/20 22 01/03/2022 COMP. METAB OLIC PANEL bilirubin, total 0.5 mg/dL 0.1-1. 2 normal Not Available [facility] [address] [place] [address], [address], 01/03/2022 09:58:10 01/04/20 22 01/03/2022 COMP. METAB OLIC PANEL alkaline phosphatase 73 U/L 30-121 normal Not Available [facility] [address] [place] [address], [address], 01/03/2022 09:58:10 01/04/20 22 01/03/2022 COMP. METAB OLIC PANEL AST 25 U/L 0-32 normal Not Available [facility] [address] [place] [address], [phone], 01/03/2022 09:58:10 01/04/20 22 01/03/2022 COMP. METAB OLIC PANEL ALT 17 U/L 0-33 normal Not Available [facility] [address] [place], [address], 01/03/2022 09:58:10 01/04/2001/03/2022 COMP. METAB OLIC PANEL GFR 73 >= 60 normal NOT E New calcu latio n for GFR (CKD- EPI 2020) is formu lated witho ut race adjus tment facto rs at the recom menda tion of the Natio nal Kidj[employer] y Found ation and Amchio Schultze ty of Nephr ology . This calcu latio n has not been valid ated in pregn ant women . For pedia anjana patie nts refer to https :[email or web address] loja.[email or web address] hanson/randolph burden s/KDO QI/gf r_cal culat orPed Not Available [facility] [address] [place] [address], [address], 01/03/2022 09:58:10 01/04/20 22 01/03/2022 LIPID PROFI LE HDL cholesterol 63 mg/dL 50-242 normal Not Available [facility] [address] [place], [address], 01/03/2022 09:58:12 01/04/20 22 01/03/2022 LIPID PROFI LE triglyceride s 162 mg/dL 0-149 high TRIGL YCERI DE RANGE S SUSI L: < 150 BORDE RLINE HIGH: 150 - 199 HIGH: 200 - 499 VERY HIGH: > OR = 500 Not Available [facility] [address] [place], [address], 01/03/2022 09:58:12 01/04/20 22 01/03/2022 LIPID PROFI LE cholesterol 264 mg/dL 0-199 high ELVA STERO L (TOTA L) RANGE S WU ABLE: < 200 BORDE RLINE : 200 - 239 HIGHE R RISK: > 239 Not Available [facility] [address] [place], [address], 01/03/2022 09:58:12 01/04/20 22 01/03/2022 LIPID PROFI LE LDL cholesterol 169 mg/dL _(diaz c) 0-99 high LDL ELVA STERO L RANGE S OPTIM AL: < 100 NEAR/ ABOVE OPTIM AL: 100 - 129 BORDE RLINE HIGH: 130 - 159 HIGH: 160 - 189 VERY HIGH: > OR = 190 Not Available [facility] [address] [facility], [place], [address], 01/03/2022 09:58:12 05/18/19 20 05/14/2019 MAMMO , scree mary beth, tomos ynthe sis, bilat eral, w/ CAD No observ ation record ed. [address] [facility] [address] [place], [phone], 01/15/2020 12:48:48 05/22/19 21 05/16/2020 MAMMO , scree mary beth, tomos ynthe sis, bilat eral, w/ CAD No observ ation record ed. [address], [place], [address], 01/14/2021 09:10:34 01/04/20 22 05/23/2021 MAMMO , scree mary beth, bilat eral, w/ CAD No observ ation record ed. [address] (Med Record) [address] [place] [address] [address], [place], [address], 01/03/2022 17:21:15 01/10/20 22 01/09/2022 CT, abdom en + pelvi s, w/ contr ast No observ ation record ed. [email or web address] [address], [place], [address], 01/16/2022 13:33:50 Result Notes None recorded. Problems Name Problem SNOMED Code Status Onset Date Resolution Date Notes Provider Name and Address Organization Details Recorded Time History of non-Hodgkin s lymphoma 758413216 Active 2018 JEAN CRUZ MD [address] [place] [address], [address], [facility] 9 19:00:07 History of radiation therapy to chest 5108499247377 4 Active 2018 JEAN CRUZ MD [address] [place] [address], [address], [facility] 9 19:00:33 Antithrombi n III deficiency 03867537 Active 2018 JEAN CRUZ MD [address] [place] [address], [address], [facility] 9 19:01:22 Long-term current use of anticoagula nt 124840228 Active 2018 JEAN CRUZ MD [address] [place] [address], [address], [facility] 9 19:01:34 Left upper quadrant pain 807430569 Active 2021 JEAN CRUZ MD [address] [place] [address], [address], [facility] 2 20:00:44 Problem Notes None recorded. Procedures Surgical History Date Name Laterality Status Provider Name and Address Organization Details Recorded Time 07/05/19 22 Pacemaker completed Graciela Escudero [facility] 01/03/2022 10:18:39 04/21/18 97 Total Hysterectomy completed Tanesha Chino [facility] 01/12/2020 09:16:55 Imaging Results Imaging Date Name Status LastModified by Organiz ation Details LastModified Time 05/14/2019 MAMMO, screening, tomosynthesis , bilateral, w/ CAD completed [address] [facility] [address], [place], [phone], 01/15/2020 12:48:48 05/16/2020 MAMMO, screening, tomosynthesis , bilateral, w/ CAD completed [address], [place], [address], 01/14/2021 09:10:34 05/23/2021 MAMMO, screening, bilateral, w/ CAD completed [facility] (Med Record) [address], [place], [address], 01/03/2022 17:21:15 01/09/2022 CT, abdomen + pelvis, w/ contrast completed [email or web address] [facility] [address], [place], [address], 01/16/2022 13:33:50 Procedure Notes None recorded. Medical Equipment None Reported. Allergies Allergen ID Allergen Name Allergen Category Reaction Reaction Severity Criticality Documentation Date Start Date Code Code System Note Provider Name and Address Organization Details Recorded Time 844530 Calan medicatio n other severe Not available 01/11/2019 19147 0 RxNorm [facility] 9 09:09:08 [id number] hydrocodo ne Not available Not available Not available Not available 01/11/2019 5489 RxNorm pvcs and pacs [facility] 9 09:09:18 729319 Prilosec medicatio n Not available Not available Not available 01/11/201984693 5 [facility] 9 09:09:26 615984 Xarelto medicatio n itching severe Not available 01/11/2019 01627 99 [facility]Norm [facility] 9 09:03:59 Medications Name Sig Start Date Stop Date Status Note LastModified by Organization Details LastModified Time Toprol XL 100 mg tablet,extended release Take 1 tablet every day by oral route. active Not Available Not Available No t Available Paxil 20 mg tablet Take 1 tablet every day by oral route. active Not Available Not Available No t Available spironolactone 25 mg tablet Take 1 tablet every day by oral route. active Not Available Not Available No t Available Coumadin active Instr uctio ns: 2.5mg M and 5mg th rest of the week Not Available Not Available Not Available Vitals Date Recorded Body weight Body mass index (BMI) Body height Heart rate Oxygen saturation Oxygen saturation in Arterial blood by Pulse oximetry Body temperature Systolic blood pressure Diastolic blood pressure Provider Name and Address Organization Details Last Updated DateTime 9 800427. 64 g 47.1 kg/m2 165.1 cm 72 /min 97 % 97 % 97.7 [degF] 112 mm[Hg] 72 mm[Hg] Medina Urena [facility] 9 09:15:16 Date Recorded Body height Pain severity - 0-10 verbal numeric rating [Score] - Reported Oxygen saturation Oxygen saturation in Arterial blood by Pulse oximetry Heart rate Body mass index (BMI) Body weight Systolic blood pressure Diastolic blood pressure Provider Name and Address Organization Details Last Updated DateTime 0 165.1 cm 0 98 % 98 % 75 /min 46.1 kg/m2 941135. 09 g 130 mm[Hg] 80 mm[Hg] Tanesha Chino [facility] 0 09:19:11 Date Recorded Body height Body mass index (BMI) Body weight Pain severity - 0-10 verbal numeric rating [Score] - Reported Body temperature Heart rate Oxygen saturation Oxygen saturation in Arterial blood by Pulse oximetry Systolic blood pressure Diastolic blood pressure Provider Name and Address Organization Details Last Updated DateTime 1 165.1 cm 46.1 kg/m2 127452. 44 g 0 97.5 [degF] 67 /min 96 % 96 % 125 mm[Hg] 79 mm[Hg] Tanesha Chino [facility] 1 10:04:34 Date Recorded Body height Body mass index (BMI) Body weight Body temperature Heart rate Oxygen saturation Oxygen saturation in Arterial blood by Pulse oximetry Systolic blood pressure Diastolic blood pressure Provider Name and Address Organization Details Last Updated DateTime 2 165.1 cm 45.4 kg/m2 021560. 07 g 97.7 [degF] 72 /min 98 % 98 % 120 mm[Hg] 77 mm[Hg] Graciela sEcudero [facility] 2 10:26:19 Social History Question Answer Notes LastModified by Organizat ion Details LastModified Time Tobacco Smoking Status Never Smoker [facility] 01/11/2019 09:11:34 What Is Your Level Of Alcohol Consumption? None Information not available 01/11/2019 How Much Tobacco Do You Chew? None Information not available 01/11/2019 Have You Been To An Area Known To Be High Risk For COVID-19? No [email or web address] Information not available 01/12/2020 Do You Or Have You Ever Used E-cigarettes Or Vape? Never Used Electronic Cigarettes Information not available 01/11/2019 What Is Your Occupation? Unemployed [email or web address] Information not available 01/12/2020 Live Alone Or With Others? With Others [email or web address] Information not available 01/12/2020 Education Level College [email or web address] Informati on not available 01/12/2020 Learning Preferences Verbal/written [email or web address] Information not available 01/10/2021 Marital Status Informatio n not available 01/12/2020 What Was The Date Of Your Most Recent Tobacco Screening? 01/03/2022 [email or web address] Information not available 01/03/2022 How Many Children Do You Have? 1 [email or web address] Information not available 01/12/2020 What Is Your Relationship Status? [email or web address] Information not available 01/10/2021 Do You Or Have You Ever Used Smokeless Tobacco? Never Used Smokeless Tobacco Information not available 01/11/2019 How Much Tobacco Do You Smoke? No Information not available 01/11/2019 Do You Use Any Illicit Or Recreational Drugs? No [email or web address] Information not available 01/10/2021 Has Tobacco Cessation Counseling Been Provided? No [email or web address] Information not available 01/10/2021 How Many Years Have You Smoked Tobacco? 0 Information not available 01/11/2019 Do You Or Have You Ever Used Any Other Forms Of Tobacco Or Nicotine? No [email or web address] Information not available 01/10/2021 Sex: Female Functional Status None recorded. Mental Status None recorded. Family History Relationship Description Onset Age of this Age Resolved Age Notes LastModified by Organization Details LastModified Time Father No current problems or disability Not available 01/11 09:15:22 Mother No current problems or disability [email or web address] Not available 01/11 09:15:22 Medical History Condition Response Hypertension Y Gynecological HistoryNo gynecological history recorded. Obstetrics History GPAL:G 0 P 0 0 0 0 Immunizations Vaccine Type Date Status Note Provider Nam e and Address Organization Details Recorded Time COVID-19, mRNA, LNP-S, PF, 100 mcg/0.5mL dose or 50 mcg/0.25mL dose 06/20/2020 [facility]/10/2021 10:01:11 COVID-19, mRNA, LNP-S, PF, 100 mcg/0.5mL dose or 50 mcg/0.25mL dose 07/18/2020 completed Tanesha Chino [facility] 01/10/2021 10:01:17 Past Encounters Encounter ID Performer Location Encounter Start Date Encounter Closed Date Diagnosis/Indication Diagnosis SNOMED-CT Code Diagnosis ICD10 Code Diagnosis Note [id number] JEAN CRUZ MD HEM/[facility]C [facility] [address],[facility] [address] [place] [address] 01/01/2017 09:05:16 01/01/2017 11:50:36 [id number] JEAN CRUZ MD HEM/ONC [place] CL[facility] [address],[facility] [address] [place] [address] 01/07/2018 08:49:47 01/07/2018 10:46:01 [id number] JEAN CRUZ MD HEM/ONC [place] CLOSED [address] [place] [address] 01/11/2019 08:55:10 01/11/2019 11:07:29 History of non-Hodgkins lymphoma 082453222 Z85.72 History of radiation therapy to chest 1459864256 9104 Z92.3 Body mass index 40+ - severely obese 807978623 Z68.42 Antithromb in III deficiency 60873858 D68.59 Long-term drug therapy 134876954 Z79.679 [id number] MD [address] [place] [address] 02/11/2019 13:30:03 02/11/2019 15:57:[id number] [place] [address] 02/11/2019 14:39:21 02/11/2019 15:44:54 [id number] JEAN CRUZ MD HEM/ONC SB CLOSED [address] [place] [address] 01/12/2020 09:03:57 01/12/2020 11:16:40 History of non-Hodgkins lymphoma 471409132 Z85.72 [id number] JEAN CRUZ MD HEM/ONC SB CLOSED [address] [place] [address] 01/10/2021 09:05:14 01/10/2021 12:50:40 History of non-Hodgkins lymphoma 237945563 Z85.72 Antithromb in III deficiency 96670236 D68.59 History of radiation therapy to chest 8380030900 9104 Z92.3 Long-term current use of anticoagulant 214425751 Z79.01 Body mass index 40+ - severely obese 252426586 Z68.42 [id number] JEAN CRUZ MD HEM/ONC [facility] CLOSED [address] [place] [address] 01/03/2022 09:08:05 01/03/2022 11:54:52 Antithrombin III deficiency 15433608 D68.59 History of radiation therapy to chest 1203683264 9104 Z92.3 History of non-Hodgkins lymphoma 009639764 Z85.72 Long-term current use of anticoagulant 652054256 Z79.01 Left upper quadrant pain 406819612 R10.12 Body mass index 40+ - severely obese 425895438 Z68.42 Health Concerns Section Related Observation LastModified by Organization Detai ls LastModified Time None Recorded Concern Status LastModified by Organization Details LastModified Time None Recorded Advance Directives Directive None Recorded Payers Encounter Date Sequence Insurance Name Policy Number Policy Lynn Covered Member ID Lynn Member ID Guarantor Name 01/11/2019 1 [place] [id number] Oskar Odell [id number] Jessica Odell 01/12/2020 1 [place] [id number] Oskar Odell [id number] 01 Jessica Rowland Odell 01/10/2021 1 [employer] ([place] [id number] Jessica Odell [id number] Jessica Rowland Odell 01/10/2021 2 [employer] [facility] Jessica Odell [id number] Jessica Odell 01/03/2022 2 [employer] - [employer] Jessica Odell [id number] Jessica Odell 01/03/2022 1 [employer] [facility] (MEDICAID HMO) Jessica Odell [id number] Jessica Odell Notes Date Note Type Note Provider Name and Address Organization Details Recorded Time 9 text/html HPIReported bypatient.Advanced Directives / BioBank AuthorizationsAdvanced Directives? NO Dischargedischarge disposition stable Distress ScreeningHas the distress screening been completed in the last 45 days? YES; Distress level 0 no stress Practical Problemsno practical problems Family Problemsno family problems Emotional Problemsno emotional problems Spiritual/Religiousspiritua l/anabaptist problems? NO Physical Problemsno physical problems Nutrition ScreeningNutrition Screening YES; special diet restrictions? describe:; Nutrition counseling last 6 months? NO; Nutrition Protocol implemented? NO Ms. 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 She had 8 cycles of ProMACE-CytaBom chemotherapy, followed by thoracic radiation. Other medical history is significant for anti-thrombin III deficiency, DVT and PE in 2013, continuing on Coumadin, hysterectomy with incidental appendectomy in 1997, arthritis and obesity. JEAN CRUZ MD [address] [place] [address], [phone], [facility] 01/17/2019 19:04:19 0 text/html [place] HPIReported bypatient.Advanced Directives / BioBank AuthorizationsAdvanced Directives? NO Dischargedischarge disposition stable Distress ScreeningHas the distress screening been completed in the last 45 days? YES; Distress level 0 no stress Practical Problemsno practical problems Family Problemsno family problems Emotional Problemsno emotional problems Spiritual/Religiousspiritua l/anabaptist problems? NO Physical Problemsweight loss;weight gain Nutrition ScreeningNutrition Screening YES; special diet restrictions? describe:; Nutrition counseling last 6 months? NO; Nutrition Protocol implemented? NO Ms. 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 She had 8 cycles of ProMACE-CytaBom chemotherapy, followed by thoracic radiation. Other medical history is significant for anti-thrombin III deficiency, DVT and PE in 2013, continuing on Coumadin, hysterectomy with incidental appendectomy in 1997, arthritis and obesity. JEAN CRUZ MD [address] [place] [address], [phone], [facility] 01/15/2020 12:49:09 1 text/html [place] HPIReported bypatient.patient accompanied by:patient accompanied by spouse Advanced Directives / BioBank AuthorizationsAdvanced Directives? NO Dischargedischarge mode ambulatory; discharge disposition stable Distress ScreeningHas the distress screening been completed in the last 45 days? YES; Distress level 0 no stress Practical Problemsno practical problems Family Problemsno family problems Emotional Problemsno emotional problems Spiritual/Religiousspiritua l/anabaptist problems? NO Physical Problemsno physical problems Nutrition ScreeningNutrition Screening YES; special diet restrictions? describe:; Nutrition counseling last 6 months? NO; Nutrition Protocol implemented? NO Ms. 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 She had 8 cycles of ProMACE-CytaBom chemotherapy, followed by thoracic radiation. Other medical history is significant for anti-thrombin III deficiency, DVT and PE in 2013, continuing on Coumadin, hysterectomy with incidental appendectomy in 1997, arthritis and obesity. JEAN CRUZ MD [address] [place] [address], [phone], [facility] 01/14/2021 09:13:56 2 text/html [place] HPIReported bypatient.patient accompanied by:patient accompanied by spouse Advanced Directives / BioBank AuthorizationsAdvanced Directives? NO Dischargedischarge mode ambulatory; discharge disposition stable Distress ScreeningHas the distress screening been completed in the last 45 days? YES; Distress level 0 no stress Practical Problemsno practical problems Family Problemsno family problems Emotional Problemsno emotional problems Spiritual/Religiousspiritua l/anabaptist problems? NO Physical Problemsno physical problems Nutrition ScreeningNutrition Screening YES; special diet restrictions? describe:; Nutrition counseling last 6 months? NO; Nutrition Protocol implemented? NO Ms. 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 She had 8 cycles of ProMACE-CytaBom chemotherapy, followed by thoracic radiation. Other medical history is significant for anti-thrombin III deficiency, DVT and PE in 2013, continuing on Coumadin, hysterectomy with incidental appendectomy in 1997, arthritis and obesity. JEAN CRUZ MD [address] [place] [address], [phone], [facility] 01/05/2022 20:04:05 OBGyn Episode No OBEpisode recorded.
--- OUTSIDE RECORDS SUMMARY | 2024-08-04 15:07 | XMS_ITS | Data Portability ---
Author Organization [facility] AISLINN Lawrence HAKALAU CLOSED Address [address] [facility] [place] [address] Care Team Providers Care Top Cager Name Role Phone SUSANNAH BALLARD Hematology/Oncology MARTIN PEÑA Primary Care Provider Assessment Encounter Date Assessment Date Assessment LastModified by Organization Details LastModified Time 01/01/2017 01/01/2017 Ms. Odell is doing well, with no evidence of lymphoma recurrence. I'll see her in 1 year; mammogram will be scheduled for April. CC: Jr. 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 We discussed possible bariatric surgery. [email or web address] Not available 01/11/2018 17:59:12 Plan of Treatment Reminders Order Date Submit Date Provider Last Modified By Organization Details Last Modified Time Details Appointments None recorded. Lab None recorded. Referral None recorded. Procedures None recorded. Surgeries None recorded. Imaging None recorded. Medication Orders Zofran 4 mg tablet 2018 019 [facility][id number], [address], [id number], 9 17:40:33 Maxalt-ML T 10 mg disintegr ating tablet 2018 019 [facility] #[id number], [address], [id number], 17:40:33 Patient TargetsNo targets recorded. Patient Instructions Encounter Date Encounter Id Patient Instructions Last Modified By Organization Details Last Modified Time 01/01/2017 [id number] learning about healthy weight IRVING Not available 02/17/2017 11:11:29 01/07/2018 [id number] non-hodgkin lymphoma: care instructions [email or web address] Not available 01/07/2018 10:31:08 When You Want to Lose Weight: Care Instructions [email or web address] Not available 01/07/2018 10:31:28 02/11/2019 [id number] nausea and vomiting: care instructions [email or web address] Not available 02/11/2019 17:40:33 dizziness: care instructions [email or web address] Not available 02/11/2019 17:40:33 migraine aura without a headache: care instructions [email or web address] Not available 02/11/2019 17:40:33 1. Audiogram obtained; reviewed- type A tymps bilaterally; 15 dbs bilaterally 2. Rx- Maxalt/ Zofran asalva Not available 02/11/2019 15:30:10 Reason for Referral None Reported. Results Created Date Observation Date Name Description Value Unit Range Abnormal Flag Note LastModifiedBy Organization Detail LastModifiedTime 01/02/2001/01/2017 CBC w/ auto diff white blood cells 4.8 K/uL 3.8-10 .8 normal Not Available [facility] [address] [place] [address], [address], 01/01/2017 09:35:48 01/02/2001/01/2017 CBC w/ auto diff red blood cells 4.85 M/uL 3.80-5 .20 normal Not Available [facility] [address] [place], [address], 01/01/2017 09:35:48 01/02/20 17 01/01/2017 CBC w/ auto diff hemoglobin 13.6 g/dL 12.0-1 6.0 normal Not Available [facility] [address] [place] [address], [address], 01/01/2017 09:35:48 01/02/2001/01/2017 CBC w/ auto diff hematocrit 41.4 % 35.0-4 7.0 normal Not Available [facility] [address] [place] [address], [address], 01/01/2017 09:35:48 01/02/2001/01/2017 CBC w/ auto diff MCV 85 fL 80-100 normal Not Available [facility] [address] [place] [address], [address], 01/01/2017 09:35:48 01/02/2001/01/2017 CBC w/ auto diff MCH 28 pg 26-35 normal Not Available [facility] [address] [place] [address], [address], 01/01/2017 09:35:48 01/02/2001/01/2017 CBC w/ auto diff MCHC 33 g/dL 32-36 normal Not Available [facility] [address] [place] [address], [address], 01/01/2017 09:35:48 01/02/2001/01/2017 CBC w/ auto diff RDW 14.6 % 11.0-1 5.0 normal Not Available [facility] [address] [place] [address], [address], 01/01/2017 09:35:48 01/02/2001/01/2017 CBC w/ auto diff MPV 7.5 fL 6.2-10 .5 normal Not Available [facility] [address] [place] [address], [address], 01/01/2017 09:35:48 01/02/2001/01/2017 CBC w/ auto diff platelet count 239 K/uL 130-40 0 normal Not Available [facility] [address] [place] [address], [address], 01/01/2017 09:35:48 01/02/2001/01/2017 CBC w/ auto diff neutrophil,a bsolute 1.9 K/uL 1.6-8. 4 normal Not Available [facility] [address] [place], [address], 01/01/2017 09:35:48 01/02/2001/01/2017 CBC w/ auto diff lymphocyte,a bsolute 2.2 K/uL 0.4-5. 1 normal Not Available [facility] [address] [place] [address], [address], 01/01/2017 09:35:48 01/02/2001/01/2017 CBC w/ auto diff monocyte,abs olute 0.4 K/uL 0.0-1. 2 normal Not Available [facility] [address] [place] [address], [address], 01/01/2017 09:35:48 01/02/2001/01/2017 CBC w/ auto diff eosinophil,a bsolute 0.2 K/uL 0.0-0. 8 normal Not Available [facility] [address] [place] [address], [address], 01/01/2017 09:35:48 01/02/2001/01/2017 CBC w/ auto diff basophil,abs olute 0.0 K/uL 0.0-0. 3 normal Not Available [facility] [address] [place] [address], [address], 01/01/2017 09:35:48 01/02/2001/01/2017 CBC w/ auto diff % neutrophils 40.6 % 42.0-7 8.0 low Not Available [facility] [address] [place] [address], [address], 01/01/2017 09:35:48 01/02/2001/01/2017 CBC w/ auto diff % lymphocytes 45.6 % 11.0-4 7.0 normal Not Available [facility] [address] [place] [address], [address], 01/01/2017 09:35:48 01/02/2001/01/2017 CBC w/ auto diff % monocytes 8.8 % 0.0-11 .0 normal Not Available [facility] [address] [place] [address], [address], 01/01/2017 09:35:48 01/02/2001/01/2017 CBC w/ auto diff % eosinophils 4.0 % 0.0-7. 0 normal Not Available [facility] [address] [place] [address], [address], 01/01/2017 09:35:48 01/02/2001/01/2017 CBC w/ auto diff % basophils 1.0 % 0.0-3. 0 normal Not Available [facility] [address] [place] [address], [address], 01/01/2017 09:35:48 01/02/2001/01/2017 CBC w/ auto diff nucleated red cells 0.2 % 0.0-0. 9 normal Not Available [facility] [address] [place] [address], [address], 01/01/2017 09:35:48 01/02/2001/01/2017 CBC w/ auto diff nucleated RBCs, absolute 0.01 K/uL not estab. normal Not Available [facility] [address] [place] [address], [address], 01/01/2017 09:35:48 01/02/2001/01/2017 CMP, serum or plasm a glucose 95 mg/dL 74-100 normal Not Available [facility] [address] [place] [address], [address], 01/01/2017 10:04:58 01/02/2001/01/2017 CMP, serum or plasm a blood urea nitrogen 10 mg/dL 6-20 normal Not Available [facility] [address] [place] [address], [address], 01/01/2017 10:04:58 01/02/2001/0101/01/2017 CMP, serum or plasm a creatinine 0.81 mg/dL 0.50-0 .95 normal Not Available [facility] [address] [place] [address], [address], 01/01/2017 10:04:58 01/02/20 17 01/01/2017 CMP, serum or plasm a BUN/creatini ne ratio 12 (calc ) 10-20 normal Not Available [facility] [address] [place] [address], [address], 01/01/2017 10:04:58 01/02/20 17 01/01/2017 CMP, serum or plasm a GFR 96 >= 60 normal Not Available [facility] [address] [place] [address], [address], 01/01/2017 10:04:58 01/02/20 17 01/01/2017 CMP, serum or plasm a GFR non- 83 >= 60 normal NOT E NEW calcu [...] for 3 month s or longe r. . Not Available [facility] [address] [place], [address], 01/01/2017 10:04:58 01/02/20 17 01/01/2017 CMP, serum or plasm a sodium 138 mmol/ L 136-14 5 normal Not Available [facility] [address] [place] [address], [address], 01/01/2017 10:04:58 01/02/20 17 01/01/2017 CMP, serum or plasm a potassium 4.2 mmol/ L 3.4-5. 0 normal Not Available [facility] [address] [place], [address], 01/01/2017 10:04:58 01/02/20 17 01/01/2017 CMP, serum or plasm a chloride 101 mmol/ L 98-107 normal Not Available [facility] [address] [place] [address], [address], 01/01/2017 10:04:58 01/02/20 17 01/01/2017 CMP, serum or plasm a carbon dioxide 22 mmol/ L 20-32 normal Not Available [facility] [address] [place] [address], [address], 01/01/2017 10:04:58 01/02/20 17 01/01/2017 CMP, serum or plasm a anion gap 15 (calc ) 7-25 normal Not Available [facility] [address] [place] [address], [address], 01/01/2017 10:04:58 01/02/20 17 01/01/2017 CMP, serum or plasm a calcium 8.9 mg/dL 8.6-10 .2 normal Not Available [facility] [address] [place] [address], [address], 01/01/2017 10:04:58 01/02/20 17 01/01/2017 CMP, serum or plasm a total protein 7.3 g/dL 6.4-8. 3 normal Not Available [facility] [address] [place] [address], [address], 01/01/2017 10:04:58 01/02/20 17 01/01/2017 CMP, serum or plasm a albumin 3.9 g/dL 3.5-5. 2 normal Not Available [facility] [address] [place] [address], [address], 01/01/2017 10:04:58 01/02/20 17 01/01/2017 CMP, serum or plasm a globulin 3.4 g/dL_ (calc ) 1.5-4. 5 normal Not Available [facility] [address] [place] [address], [address], 01/01/2017 10:04:58 01/02/20 17 01/01/2017 CMP, serum or plasm a albumin/glob ulin ratio 1.1 (calc ) 1.1-2. 5 normal Not Available [facility] [address] [place] [address], [address], 01/01/2017 10:04:58 01/02/20 17 01/01/2017 CMP, serum or plasm a bilirubin, total 0.5 mg/dL 0.1-1. 2 normal Not Available [facility] [address] [place] [address], [address], 01/01/2017 10:04:58 01/02/20 17 01/01/2017 CMP, serum or plasm a alkaline phosphatase 61 U/L 35-105 normal Not Available [facility] [address] [place] [address], [address], 01/01/2017 10:04:58 01/02/20 17 01/01/2017 CMP, serum or plasm a AST 23 U/L 0-32 normal Not Available [facility] [address] [place] [address], [address], 01/01/2017 10:04:58 01/02/20 17 01/01/2017 CMP, serum or plasm a ALT 14 U/L 0-33 normal Not Available [facility] [address] [place] [address], [address], 01/01/2017 10:04:58 01/02/20 17 01/01/2017 lipid panel , serum HDL cholesterol 65 mg/dL 66-242 low Not Available [facility] [address] [place] [address], [address], 01/01/2017 10:05:00 01/02/20 17 01/01/2017 lipid panel , serum triglyceride s 131 mg/dL 0-149 normal TRIGL YCERI DE RANGE S SUSI L: < 150 BORDE RLINE HIGH: 150 - 199 HIGH: 200 - 499 VERY HIGH: > OR = 500 Not Available [facility] [address] [place] [address], [address], 01/01/2017 10:05:00 01/02/20 17 01/01/2017 lipid panel , serum cholesterol 223 mg/dL 0-199 high ELVA STERO L (TOTA L) RANGE S WU ABLE: < 200 BORDE RLINE : 200 - 239 HIGHE R RISK: > 239 Not Available [facility] [address] [place] [address], [address], 01/01/2017 10:05:00 01/02/20 17 01/01/2017 lipid panel , serum LDL cholesterol 132 mg/dL _(diaz c) 0-99 high LDL ELVA STERO L RANGE S OPTIM AL: < 100 NEAR/ ABOVE OPTIM AL: 100 - 129 BORDE RLINE HIGH: 130 - 159 HIGH: 160 - 189 VERY HIGH: > OR = 190 Not Available [facility] [address] [place] [address], [address], 01/01/2017 10:05:00 01/08/20 18 01/07/2018 CBC w/ auto diff white blood cells 4.8 K/uL 3.8-10 .8 normal Not Available [facility] [address] [place] [address], [address], 01/07/2018 09:32:31 01/08/20 18 01/07/2018 CBC w/ auto diff red blood cells 4.53 M/uL 3.80-5 .20 normal Not Available [facility] [address] [place] [address], [address], 01/07/2018 09:32:31 01/08/20 18 01/07/2018 CBC w/ auto diff hemoglobin 13.4 g/dL 12.0-1 6.0 normal Not Available [facility] [address] [place] [address], [address], 01/07/2018 09:32:31 01/08/20 18 01/07/2018 CBC w/ auto diff hematocrit 38.8 % 35.0-4 7.0 normal Not Available [facility] [address] [place], [address], 01/07/2018 09:32:31 01/08/20 18 01/07/2018 CBC w/ auto diff MCV 86 fL 80-100 normal Not Available [facility] [address] [place] [address], [address], 01/07/2018 09:32:31 01/08/20 18 01/07/2018 CBC w/ auto diff MCH 30 pg 26-35 normal Not Available [facility] [address] [place] [address], [address], 01/07/2018 09:32:31 01/08/20 18 01/07/2018 CBC w/ auto diff MCHC 34 g/dL 32-36 normal Not Available [facility] [address] [place] [address], [address], 01/07/2018 09:32:31 01/08/20 18 01/07/2018 CBC w/ auto diff RDW 14.3 % 11.0-1 5.0 normal Not Available [facility] [address] [place] [address], [address], 01/07/2018 09:32:31 01/08/20 18 01/07/2018 CBC w/ auto diff MPV 7.7 fL 6.2-10 .5 normal Not Available [facility] [address] [place] [address], [address], 01/07/2018 09:32:31 01/08/20 18 01/07/2018 CBC w/ auto diff platelet count 268 K/uL 130-40 0 normal Not Available [facility] [address] [place] [address], [address], 01/07/2018 09:32:31 01/08/20 18 01/07/2018 CBC w/ auto diff neutrophil,a bsolute 1.9 K/uL 1.6-8. 4 normal Not Available [facility] [address] [place] [address], [address], 01/07/2018 09:32:31 01/08/20 18 01/07/2018 CBC w/ auto diff lymphocyte,a bsolute 2.2 K/uL 0.4-5. 1 normal Not Available [facility] [address] [place] [address], [address], 01/07/2018 09:32:31 01/08/20 18 01/07/2018 CBC w/ auto diff monocyte,abs olute 0.5 K/uL 0.0-1. 2 normal Not Available [facility] [address] [place] [address], [address], 01/07/2018 09:32:31 01/08/20 18 01/07/2018 CBC w/ auto diff eosinophil,a bsolute 0.2 K/uL 0.0-0. 8 normal Not Available [facility] [address] [place] [address], [address], 01/07/2018 09:32:31 01/08/20 18 01/07/2018 CBC w/ auto diff basophil,abs olute 0.0 K/uL 0.0-0. 3 normal Not Available [facility] [address] [place] [address], [address], 01/07/2018 09:32:31 01/08/20 18 01/07/2018 CBC w/ auto diff % neutrophils 40.4 % 42.0-7 8.0 low Not Available [facility] [address] [place] [address], [address], 01/07/2018 09:32:31 01/08/20 18 01/07/2018 CBC w/ auto diff % lymphocytes 44.9 % 11.0-4 7.0 normal Not Available [facility] [address] [place] [address], [address], 01/07/2018 09:32:31 01/08/20 18 01/07/2018 CBC w/ auto diff % monocytes 10.6 % 0.0-11 .0 normal Not Available [facility] [address] [place] [address], [address], 01/07/2018 09:32:31 01/08/20 18 01/07/2018 CBC w/ auto diff % eosinophils 3.3 % 0.0-7. 0 normal Not Available [facility] [address] [place] [address], [address], 01/07/2018 09:32:31 01/08/20 18 01/07/2018 CBC w/ auto diff % basophils 0.8 % 0.0-3. 0 normal Not Available [facility] [address] [place] [address], [address], 01/07/2018 09:32:31 01/08/20 18 01/07/2018 CBC w/ auto diff nucleated red cells 0.2 % 0.0-0. 9 normal Not Available [facility] [address] [place] [address], [address], 01/07/2018 09:32:31 01/08/20 18 01/07/2018 CBC w/ auto diff nucleated RBCs, absolute 0.01 K/uL not estab. normal Not Available [facility] [address] [place] [address], [address], 01/07/2018 09:32:31 01/08/20 18 01/07/2018 CMP, serum or plasm a glucose 104 mg/dL 74-100 high Not Available [facility] [address] [place] [address], [address], 01/07/2018 09:55:17 01/08/20 18 01/07/2018 CMP, serum or plasm a blood urea nitrogen 9 mg/dL 6-20 normal Not Available [facility] [address] [place], [address], 01/07/2018 09:55:17 01/08/20 18 01/07/2018 CMP, serum or plasm a creatinine 0.85 mg/dL 0.50-0 .95 normal Not Available [facility] [address] [place] [address], [address], 01/07/2018 09:55:17 01/08/20 18 01/07/2018 CMP, serum or plasm a BUN/creatini ne ratio 11 (calc ) 10-20 normal Not Available [facility] [address] [place] [address], [address], 01/07/2018 09:55:17 01/08/20 18 01/07/2018 CMP, serum or plasm a sodium 138 mmol/ L 136-14 5 normal Not Available [facility] [address] [place] [address], [address], 01/07/2018 09:55:17 01/08/20 18 01/07/2018 CMP, serum or plasm a potassium 4.6 mmol/ L 3.4-5. 0 normal Not Available [facility] [address] [place] [address], [address], 01/07/2018 09:55:17 01/08/20 18 01/07/2018 CMP, serum or plasm a chloride 101 mmol/ L 98-107 normal Not Available [facility] [address] [place] [address], [address], 01/07/2018 09:55:17 01/08/20 18 01/07/2018 CMP, serum or plasm a carbon dioxide 29 mmol/ L 20-32 normal Not Available [facility] [address] [place] [address], [address], 01/07/2018 09:55:17 01/08/20 18 01/07/2018 CMP, serum or plasm a anion gap 8 (calc ) 7-25 normal Not Available [facility] [address] [place] [address], [address], 01/07/2018 09:55:17 01/08/20 18 01/07/2018 CMP, serum or plasm a calcium 9.2 mg/dL 8.6-10 .2 normal Not Available [facility] [address] [place] [address], [address], 01/07/2018 09:55:17 01/08/20 18 01/07/2018 CMP, serum or plasm a total protein 7.2 g/dL 6.4-8. 3 normal Not Available [facility] [address] [place] [address], [address], 01/07/2018 09:55:17 01/08/20 18 01/07/2018 CMP, serum or plasm a albumin 3.9 g/dL 3.5-5. 2 normal Not Available [facility] [address] [place] [address], [address], 01/07/2018 09:55:17 01/08/20 18 01/07/2018 CMP, serum or plasm a globulin 3.3 g/dL_ (calc ) 1.5-4. 5 normal Not Available [facility] [address] [place] [address], [address], 01/07/2018 09:55:17 01/08/2001/07/2018 CMP, serum or plasm a albumin/glob ulin ratio 1.2 (calc ) 1.1-2. 5 normal Not Available [facility] [address] [place] [address], [address], 01/07/2018 09:55:17 01/08/2001/07/2018 CMP, serum or plasm a bilirubin, total 0.6 mg/dL 0.1-1. 2 normal Not Available [facility] [address] [place] [address], [address], 01/07/2018 09:55:17 01/08/2001/07/2018 CMP, serum or plasm a alkaline phosphatase 55 U/L 35-105 normal Not Available [facility] [address] [place], [address], 01/07/2018 09:55:17 01/08/20 18 01/07/2018 CMP, serum or plasm a AST 18 U/L 0-32 normal Not Available [facility] [address] [place], [address], 01/07/2018 09:55:17 01/08/20 18 01/07/2018 CMP, serum or plasm a ALT 13 U/L 0-33 normal Not Available [facility] [address] [place], [address], 01/07/2018 09:55:17 01/08/20 18 01/07/2018 CMP, serum or plasm a GFR 90 >= 60 normal Not Available [facility] [address] [place], [address], 01/07/2018 09:55:17 01/08/20 18 01/07/2018 CMP, serum or plasm a GFR non- 78 >= 60 normal NOT E Calcu latio n for GFR is based on [...] for 3 month s or longe r. . Not Available [facility] [address] [place], [address], 01/07/2018 09:55:17 01/08/20 18 01/07/2018 lipid panel , serum HDL cholesterol 62 mg/dL 66-242 low Not Available [facility] [address] [place], [address], 01/07/2018 09:55:19 01/08/20 18 01/07/2018 lipid panel , serum triglyceride s 125 mg/dL 0-149 normal TRIGL YCERI DE RANGE S SUSI L: < 150 BORDE RLINE HIGH: 150 - 199 HIGH: 200 - 499 VERY HIGH: > OR = 500 Not Available [facility] [address] [place] [address], [address], 01/07/2018 09:55:19 01/08/2001/07/2018 lipid panel , serum cholesterol 240 mg/dL 0-199 high ELVA STERO L (TOTA L) RANGE S WU ABLE: < 200 BORDE RLINE : 200 - 239 HIGHE R RISK: > 239 Not Available [facility] [address] [place] [address], [address], 01/07/2018 09:55:19 01/08/2001/07/2018 lipid panel , serum LDL cholesterol 153 mg/dL _(diaz c) 0-99 high LDL ELVA STERO L RANGE S OPTIM AL: < 100 NEAR/ ABOVE OPTIM AL: 100 - 129 BORDE RLINE HIGH: 130 - 159 HIGH: 160 - 189 VERY HIGH: > OR = 190 Not Available [facility] [address] [place] [address], [address], 01/07/2018 09:55:19 01/12/2001/11/2019 CMP, serum or plasm a glucose 108 mg/dL 74-100 high Not Available [facility] [address] [place] [address], [address], 01/11/2019 09:17:14 01/12/2001/11/2019 CMP, serum or plasm a blood urea nitrogen 10 mg/dL 6-20 normal Not Available [facility] [address] [place], [address], 01/11/2019 09:17:14 01/12/2001/11/2019 CMP, serum or plasm a creatinine 0.92 mg/dL 0.50-0 .95 normal Not Available [facility] [address] [place] [address], [address], 01/11/2019 09:17:14 01/12/20 19 01/11/2019 CMP, serum or plasm a BUN/creatini ne ratio 11 (calc ) 10-20 normal Not Available [facility] [address] [place] [address], [address], 01/11/2019 09:17:14 01/12/20 19 01/11/2019 CMP, serum or plasm a sodium 139 mmol/ L 136-14 5 normal Not Available [facility] [address] [place] [address], [address], 01/11/2019 09:17:14 01/12/2001/11/2019 CMP, serum or plasm a potassium 4.2 mmol/ L 3.4-5. 0 normal Not Available [facility] [address] [place] [address], [address], 01/11/2019 09:17:14 01/12/2001/11/2019 CMP, serum or plasm a chloride 101 mmol/ L 98-107 normal Not Available [facility] [address] [place] [address], [address], 01/11/2019 09:17:14 01/12/2001/11/2019 CMP, serum or plasm a carbon dioxide 24 mmol/ L 20-32 normal Not Available [facility] [address] [place] [address], [address], 01/11/2019 09:17:14 01/12/2001/11/2019 CMP, serum or plasm a anion gap 14 (calc ) 7-25 normal Not Available [facility] [address] [place] [address], [address], 01/11/2019 09:17:14 01/12/2001/11/2019 CMP, serum or plasm a calcium 9.0 mg/dL 8.6-10 .2 normal Not Available [facility] [address] [place] [address], [address], 01/11/2019 09:17:14 01/12/2001/11/2019 CMP, serum or plasm a total protein 6.8 g/dL 6.4-8. 3 normal Not Available [facility] [address] [place] [address], [address], 01/11/2019 09:17:14 01/12/2001/11/2019 CMP, serum or plasm a albumin 3.9 g/dL 3.5-5. 2 normal Not Available [facility] [address] [place] [address], [address], 01/11/2019 09:17:14 01/12/2001/11/2019 CMP, serum or plasm a globulin 2.9 g/dL_ (calc ) 1.5-4. 5 normal Not Available [facility] [address] [place] [address], [address], 01/11/2019 09:17:14 01/12/2001/11/2019 CMP, serum or plasm a albumin/glob ulin ratio 1.3 (calc ) 1.1-2. 5 normal Not Available [facility] [address] [place] [address], [address], 01/11/2019 09:17:14 01/12/2001/11/2019 CMP, serum or plasm a bilirubin, total 0.4 mg/dL 0.1-1. 2 normal Not Available [facility] [address] [place] [address], [address], 01/11/2019 09:17:14 01/12/2001/11/2019 CMP, serum or plasm a alkaline phosphatase 55 U/L 35-105 normal Not Available [facility] [address] [place], [address], 01/11/2019 09:17:14 01/12/2001/11/2019 CMP, serum or plasm a AST 16 U/L 0-32 normal Not Available [facility] [address] [place], [address], 01/11/2019 09:17:14 01/12/20 19 01/11/2019 CMP, serum or plasm a ALT 12 U/L 0-33 normal Not Available [facility] [place], [address], 01/11/2019 09:17:14 01/12/20 19 01/11/2019 CMP, serum or plasm a GFR 81 >= 60 normal Not Available [facility] [address] [place], [address], 01/11/2019 09:17:14 01/12/20 19 01/11/2019 CMP, serum or plasm a GFR non- [...] month s or longe r. Not Available [facility] [address] [place] [address], [address], 01/11/2019 09:17:14 01/12/2001/11/2019 CBC w/ auto diff white blood cells 5.9 K/uL 3.8-10 .8 normal Not Available [facility] [address] [place] [address], [address], 01/11/2019 09:02:43 01/12/2001/11/2019 CBC w/ auto diff red blood cells 4.35 M/uL 3.80-5 .20 normal Not Available [facility] [address] [place] [address], [address], 01/11/2019 09:02:43 01/12/2001/11/2019 CBC w/ auto diff hemoglobin 12.7 g/dL 12.0-1 6.0 normal Not Available [facility] [address] [place] [address], [address], 01/11/2019 09:02:43 01/12/20 19 01/11/2019 CBC w/ auto diff hematocrit 37.6 % 35.0-4 7.0 normal Not Available [facility] [address] [place] [address], [address], 01/11/2019 09:02:43 01/12/20 19 01/11/2019 CBC w/ auto diff MCV 87 fL 80-100 normal Not Available [facility] [address] [place] [address], [address], 01/11/2019 09:02:43 01/12/2001/11/2019 CBC w/ auto diff MCH 29 pg 26-35 normal Not Available [facility] [address] [place] [address], [address], 01/11/2019 09:02:43 01/12/2001/11/2019 CBC w/ auto diff MCHC 34 g/dL 32-36 normal Not Available [facility] [address] [place] [address], [address], 01/11/2019 09:02:43 01/12/2001/11/2019 CBC w/ auto diff RDW 14.5 % 11.0-1 5.0 normal Not Available [facility] [address] [place] [address], [address], 01/11/2019 09:02:43 01/12/2001/11/2019 CBC w/ auto diff MPV 7.3 fL 6.2-10 .5 normal Not Available [facility] [address] [place] [address], [address], 01/11/2019 09:02:43 01/12/2001/11/2019 CBC w/ auto diff platelet count 250 K/uL 130-40 0 normal Not Available [facility] [address] [place], [address], 01/11/2019 09:02:43 01/12/2001/11/2019 CBC w/ auto diff neutrophil,a bsolute 2.4 K/uL 1.6-8. 4 normal Not Available [facility] [address] [place] [address], [address], 01/11/2019 09:02:43 01/12/2001/11/2019 CBC w/ auto diff lymphocyte,a bsolute 2.8 K/uL 0.4-5. 1 normal Not Available [facility] [address] [place] [address], [address], 01/11/2019 09:02:43 01/12/2001/11/2019 CBC w/ auto diff monocyte,abs olute 0.5 K/uL 0.0-1. 2 normal Not Available [facility] [address] [place] [address], [address], 01/11/2019 09:02:43 01/12/2001/11/2019 CBC w/ auto diff eosinophil,a bsolute 0.2 K/uL 0.0-0. 8 normal Not Available [facility] [address] [place] [address], [address], 01/11/2019 09:02:43 01/12/2001/11/2019 CBC w/ auto diff basophil,abs olute 0.1 K/uL 0.0-0. 3 normal Not Available [facility] [address] [place] [address], [address], 01/11/2019 09:02:43 01/12/2001/11/2019 CBC w/ auto diff % neutrophils 40.6 % 42.0-7 8.0 low Not Available [facility] [address] [place] [address], [address], 01/11/2019 09:02:43 01/12/2001/11/2019 CBC w/ auto diff % lymphocytes 46.9 % 11.0-4 7.0 normal Not Available [facility] [address] [place] [address], [address], 01/11/2019 09:02:43 01/12/2001/11/2019 CBC w/ auto diff % monocytes 8.2 % 0.0-11 .0 normal Not Available [facility] [address] [place] [address], [address], 01/11/2019 09:02:43 01/12/2001/11/2019 CBC w/ auto diff % eosinophils 3.4 % 0.0-7. 0 normal Not Available [facility] [address] [place] [address], [address], 01/11/2019 09:02:43 01/12/2001/11/2019 CBC w/ auto diff % basophils 0.9 % 0.0-3. 0 normal Not Available [facility] [address] [place] [address], [address], 01/11/2019 09:02:43 01/12/2001/11/2019 CBC w/ auto diff nucleated red cells 0.1 % 0.0-0. 9 normal Not Available [facility] [address] [place] [address], [address], 01/11/2019 09:02:43 01/12/2001/11/2019 CBC w/ auto diff nucleated RBCs, absolute 0.01 K/uL not estab. normal Not Available [facility] [address] [place] [address], [address], 01/11/2019 09:02:43 01/12/2001/12/2020 CMP, serum or plasm a glucose 105 mg/dL 74-100 high Not Available [facility] [address] [place] [address], [address], 01/12/2020 09:32:21 01/12/2001/12/2020 CMP, serum or plasm a blood urea nitrogen 8 mg/dL 6-20 normal Not Available [facility] [address] [place] [address], [address], 01/12/2020 09:32:21 01/12/20 20 01/12/2020 CMP, serum or plasm a creatinine 0.86 mg/dL 0.50-0 .95 normal Not Available [facility] [address] [place] [address], [address], 01/12/2020 09:32:21 01/12/20 20 01/12/2020 CMP, serum or plasm a BUN/creatini ne ratio 9 (calc ) 10-20 low Not Available [facility] [address] [place] [address], [address], 01/12/2020 09:32:21 01/12/20 20 01/12/2020 CMP, serum or plasm a sodium 139 mmol/ L 136-14 5 normal Not Available [facility] [address] [place] [address], [address], 01/12/2020 09:32:21 01/12/20 20 01/12/2020 CMP, serum or plasm a potassium 4.2 mmol/ L 3.4-5. 0 normal Not Available [facility] [address] [place] [address], [address], 01/12/2020 09:32:21 01/12/20 20 01/12/2020 CMP, serum or plasm a chloride 103 mmol/ L 98-107 normal Not Available [facility] [address] [place] [address], [address], 01/12/2020 09:32:21 01/12/20 20 01/12/2020 CMP, serum or plasm a carbon dioxide 28 mmol/ L 20-32 normal Not Available [facility] [address] [place] [address], [address], 01/12/2020 09:32:21 01/12/20 20 01/12/2020 CMP, serum or plasm a anion gap 8 (calc ) 7-25 normal Not Available [facility] [address] [place] [address], [address], 01/12/2020 09:32:21 01/12/2001/12/2020 CMP, serum or plasm a calcium 9.1 mg/dL 8.6-10 .2 normal Not Available [facility] [address] [place] [address], [address], 01/12/2020 09:32:21 01/12/20 20 01/12/2020 CMP, serum or plasm a total protein 6.7 g/dL 6.4-8. 3 normal Not Available [facility] [address] [place] [address], [address], 01/12/2020 09:32:21 01/12/2001/12/2020 CMP, serum or plasm a albumin 4.1 g/dL 3.5-5. 2 normal Not Available [facility] [address] [place] [address], [address], 01/12/2020 09:32:21 01/12/2001/12/2020 CMP, serum or plasm a globulin 2.6 g/dL_ (calc ) 1.5-4. 5 normal Not Available [facility] [address] [place] [address], [address], 01/12/2020 09:32:21 01/12/2001/12/2020 CMP, serum or plasm a albumin/glob ulin ratio 1.6 (calc ) 1.1-2. 5 normal Not Available [facility] [address] [place] [address], [address], 01/12/2020 09:32:21 01/12/2001/12/2020 CMP, serum or plasm a bilirubin, total 0.3 mg/dL 0.1-1. 2 normal Not Available [facility] [address] [place] [address], [address], 01/12/2020 09:32:21 01/12/2001/12/2020 CMP, serum or plasm a alkaline phosphatase 58 U/L 35-105 normal Not Available [facility] [address] [place], [address], 01/12/2020 09:32:21 01/12/20 20 01/12/2020 CMP, serum or plasm a AST 20 U/L 0-32 normal Not Available [facility] [address] [place] [address], [address], 01/12/2020 09:32:21 01/12/20 20 01/12/2020 CMP, serum or plasm a ALT 12 U/L 0-33 normal Not Available [facility] [address] [place] [address], [address], 01/12/2020 09:32:21 01/12/20 20 01/12/2020 CMP, serum or plasm a GFR 87 >= 60 normal Not Available [facility] [address] [place], [address], 01/12/2020 09:32:21 01/12/2001/12/2020 CMP, serum or plasm [...] month s or longe r. Not Available [facility] [place], [address], 01/12/2020 09:32:21 01/12/20 20 01/12/2020 CBC w/ auto diff white blood cells 5.1 K/uL 3.8-10 .8 normal Not Available [facility] [address] [place] [address], [address], 01/12/2020 09:07:06 01/12/20 20 01/12/2020 CBC w/ auto diff red blood cells 4.59 M/uL 3.80-5 .20 normal Not Available [facility] [address] [place] [address], [address], 01/12/2020 09:07:06 01/12/20 20 01/12/2020 CBC w/ auto diff hemoglobin 13.3 g/dL 12.0-1 6.0 normal Not Available [facility] [address] [place] [address], [address], 01/12/2020 09:07:06 01/12/2001/12/2020 CBC w/ auto diff hematocrit 39.6 % 35.0-4 7.0 normal Not Available [facility] [address] [place] [address], [address], 01/12/2020 09:07:06 01/12/2001/12/2020 CBC w/ auto diff MCV 86 fL 80-100 normal Not Available [facility] [address] [place] [address], [address], 01/12/2020 09:07:06 01/12/2001/12/2020 CBC w/ auto diff MCH 29 pg 26-35 normal Not Available [facility] [address] [place] [address], [address], 01/12/2020 09:07:06 01/12/2001/12/2020 CBC w/ auto diff MCHC 34 g/dL 32-36 normal Not Available [facility] [address] [place] [address], [address], 01/12/2020 09:07:06 01/12/2001/12/2020 CBC w/ auto diff RDW 14.5 % 11.0-1 5.0 normal Not Available [facility] [address] [place] [address], [address], 01/12/2020 09:07:06 01/12/20 20 01/12/2020 CBC w/ auto diff MPV 7.5 fL 6.2-10 .5 normal Not Available [facility] [address] [place] [address], [address], 01/12/2020 09:07:06 01/12/20 20 01/12/2020 CBC w/ auto diff platelet count 268 K/uL 130-40 0 normal Not Available [facility] [address] [place] [address], [address], 01/12/2020 09:07:06 01/12/20 20 01/12/2020 CBC w/ auto diff neutrophil,a bsolute 2.3 K/uL 1.6-8. 4 normal Not Available [facility] [address] [place] [address], [address], 01/12/2020 09:07:06 01/12/20 20 01/12/2020 CBC w/ auto diff lymphocyte,a bsolute 2.1 K/uL 0.4-5. 1 normal Not Available [facility] [address] [place] [address], [address], 01/12/2020 09:07:06 01/12/20 20 01/12/2020 CBC w/ auto diff monocyte,abs olute 0.4 K/uL 0.0-1. 2 normal Not Available [facility] [address] [place] [address], [address], 01/12/2020 09:07:06 01/12/20 20 01/12/2020 CBC w/ auto diff eosinophil,a bsolute 0.2 K/uL 0.0-0. 8 normal Not Available [facility] [address] [place] [address], [address], 01/12/2020 09:07:06 01/12/20 20 01/12/2020 CBC w/ auto diff basophil,abs olute 0.1 K/uL 0.0-0. 3 normal Not Available [facility] [address] [place] [address], [address], 01/12/2020 09:07:06 01/12/20 20 01/12/2020 CBC w/ auto diff % neutrophils 44.0 % 42.0-7 8.0 normal Not Available [facility] [address] [place] [address], [address], 01/12/2020 09:07:06 01/12/20 20 01/12/2020 CBC w/ auto diff % lymphocytes 41.2 % 11.0-4 7.0 normal Not Available [facility] [address] [place] [address], [address], 01/12/2020 09:07:06 01/12/2001/12/2020 CBC w/ auto diff % monocytes 8.1 % 0.0-11 .0 normal Not Available [facility] [address] [place] [address], [address], 01/12/2020 09:07:06 01/12/20 20 01/12/2020 CBC w/ auto diff % eosinophils 4.3 % 0.0-7. 0 normal Not Available [facility] [address] [place] [address], [address], 01/12/2020 09:07:06 01/12/2001/12/2020 CBC w/ auto diff % basophils 2.4 % 0.0-3. 0 normal Not Available [facility] [address] [place] [address], [address], 01/12/2020 09:07:06 01/12/2001/12/2020 CBC w/ auto diff nucleated red cells 0.0 % 0.0-0. 9 normal Not Available [facility] [address] [place] [address], [address], 01/12/2020 09:07:06 01/12/20 20 01/12/2020 CBC w/ auto diff nucleated RBCs, absolute 0.00 K/uL not estab. normal Not Available [facility] [address] [place] [address], [address], 01/12/2020 09:07:06 01/04/20 22 01/03/2022 LIPID PROFI LE HDL cholesterol 63 mg/dL 50-242 normal Not Available [facility] [address] [place] [address], [address], 01/03/2022 09:58:11 01/04/20 22 01/03/2022 LIPID PROFI LE triglyceride s 162 mg/dL 0-149 high TRIGL YCERI DE RANGE S SUSI L: < 150 BORDE RLINE HIGH: 150 - 199 HIGH: 200 - 499 VERY HIGH: > OR = 500 Not Available [facility] [address] [place] [address], [address], 01/03/2022 09:58:11 01/04/20 22 01/03/2022 LIPID PROFI LE cholesterol 264 mg/dL 0-199 high ELVA STERO L (TOTA L) RANGE S WU ABLE: < 200 BORDE RLINE : 200 - 239 HIGHE R RISK: > 239 Not Available [facility] [address] [place] [address], [address], 01/03/2022 09:58:11 01/04/20 22 01/03/2022 LIPID PROFI LE LDL cholesterol 169 mg/dL _(diaz c) 0-99 high LDL ELVA STERO L RANGE S OPTIM AL: < 100 NEAR/ ABOVE OPTIM AL: 100 - 129 BORDE RLINE HIGH: 130 - 159 HIGH: 160 - 189 VERY HIGH: > OR = 190 Not Available [facility] [address] [place] [address], [address], 01/03/2022 09:58:11 01/04/20 22 01/03/2022 COMP. METAB OLIC PANEL glucose 108 mg/dL 74-100 high Not Available [facility] [address] [place] [address], [address], 01/03/2022 09:58:10 01/04/20 22 01/03/2022 COMP. METAB OLIC PANEL blood urea nitrogen 8 mg/dL 6-20 normal Not Available [facility] [address] [place] [address], [address], 01/03/2022 09:58:10 01/04/20 22 01/03/2022 COMP. METAB OLIC PANEL creatinine 0.91 mg/dL 0.50-0 .95 normal Not Available [facility] [address] [place] [address], [address], 01/03/2022 09:58:10 01/04/20 22 01/03/2022 COMP. METAB OLIC PANEL BUN/creatini ne ratio 9 (calc ) 10-20 low Not Available [facility] [address] [place] [address], [address], 01/03/2022 09:58:10 01/04/20 22 01/03/2022 COMP. METAB OLIC PANEL sodium 139 mmol/ L 136-14 5 normal Not Available [facility] [address] [place] [address], [address], 01/03/2022 09:58:10 01/04/20 22 01/03/2022 COMP. METAB OLIC PANEL potassium 4.5 mmol/ L 3.4-5. 0 normal Not Available [facility] [address] [place] [address], [address], 01/03/2022 09:58:10 01/04/20 22 01/03/2022 COMP. METAB OLIC PANEL chloride 100 mmol/ L 98-107 normal Not Available [facility] [address] [place] [address], [address], 01/03/2022 09:58:10 01/04/20 22 01/03/2022 COMP. METAB OLIC PANEL carbon dioxide 28 mmol/ L 22-31 normal Not Available [facility] [address] [place] [address], [address], 01/03/2022 09:58:10 01/04/20 22 01/03/2022 COMP. METAB OLIC PANEL anion gap 11 (calc ) 7-25 normal Not Available [facility] [address] [place] [address], [address], 01/03/2022 09:58:10 01/04/20 22 01/03/2022 COMP. METAB OLIC PANEL calcium 9.8 mg/dL 8.6-10 .2 normal Not Available [facility] [address] [place] [address], [address], 01/03/2022 09:58:10 01/04/20 22 01/03/2022 COMP. METAB OLIC PANEL total protein 7.9 g/dL 6.4-8. 3 normal Not Available [facility] [address] [place] [address], [address], 01/03/2022 09:58:10 01/04/20 22 01/03/2022 COMP. METAB OLIC PANEL albumin 4.4 g/dL 3.5-5. 2 normal Not Available [facility] [address] [place] [address], [address], 01/03/2022 09:58:10 01/04/20 22 01/03/2022 COMP. METAB OLIC PANEL globulin 3.5 g/dL_ (calc ) 1.5-4. 5 normal Not Available [facility] [address] [place] [address], [address], 01/03/2022 09:58:10 01/04/20 22 01/03/2022 COMP. METAB OLIC PANEL albumin/glob ulin ratio 1.3 (calc ) 1.1-2. 5 normal Not Available [facility] [address] [place] [address], [address], 01/03/2022 09:58:10 01/04/20 22 01/03/2022 COMP. METAB OLIC PANEL bilirubin, total 0.5 mg/dL 0.1-1. 2 normal Not Available [facility] [address] [place], [address], 01/03/2022 09:58:10 01/04/20 22 01/03/2022 COMP. METAB OLIC PANEL alkaline phosphatase 73 U/L 30-121 normal Not Available [facility] [address] [place], [address], 01/03/2022 09:58:10 01/04/20 22 01/03/2022 COMP. METAB OLIC PANEL AST 25 U/L 0-32 normal Not Available [facility] [address] [place], [address], 01/03/2022 09:58:10 01/04/20 22 01/03/2022 COMP. METAB OLIC PANEL ALT 17 U/L 0-33 normal Not Available [facility] [address] [place], [address], 01/03/2022 09:58:10 01/04/20 22 01/03/2022 COMP. METAB OLIC PANEL GFR 73 >= 60 normal NOT E New calcu latio n for GFR (CKD- EPI 2020) is formu lated witho ut race adjus tment facto rs at the recom menda tion of the [facility] . This calcu latio n has not been valid ated in pregn ant women . For pedia tric patie nts refer to https ://leona [email or web address] loja.o rg/pr jamila burden s/KDO QI/gf r_cal culat orPed Not Available [facility] [address] [place], [address], 01/03/2022 09:58:10 01/04/20 22 01/03/2022 COMPL ETE BLOOD COUNT white blood cells 6.9 K/uL 3.8-10 .8 normal Not Available [facility] [address] [place], [address], 01/03/2022 09:22:33 01/04/20 22 01/03/2022 COMPL ETE BLOOD COUNT red blood cells 4.85 M/uL 3.80-5 .20 normal Not Available [facility] [address] [place] [address], [address], 01/03/2022 09:22:33 01/04/20 22 01/03/2022 COMPL ETE BLOOD COUNT hemoglobin 13.6 g/dL 12.0-1 6.0 normal Not Available [facility] [address] [place] [address], [address], 01/03/2022 09:22:33 01/04/20 22 01/03/2022 COMPL ETE BLOOD COUNT hematocrit 40.8 % 35.0-4 7.0 normal Not Available [facility] [address] [place] [address], [address], 01/03/2022 09:22:33 01/04/20 22 01/03/2022 COMPL ETE BLOOD COUNT MCV 84 fL 80-100 normal Not Available [facility] [address] [place] [address], [address], 01/03/2022 09:22:33 01/04/20 22 01/03/2022 COMPL ETE BLOOD COUNT MCH 28 pg 26-35 normal Not Available [facility] [address] [place] [address], [address], 01/03/2022 09:22:33 01/04/2001/03/2022 COMPL ETE BLOOD COUNT MCHC 33 g/dL 32-36 normal Not Available [facility] [address] [place] [address], [address], 01/03/2022 09:22:33 01/04/20 22 01/03/2022 COMPL ETE BLOOD COUNT RDW 15.1 % 11.0-1 5.0 high Not Available [facility] [address] [place] [address], [address], 01/03/2022 09:22:33 01/04/20 22 01/03/2022 COMPL ETE BLOOD COUNT MPV 7.1 fL 6.2-10 .5 normal Not Available [facility] [address] [place] [address], [address], 01/03/2022 09:22:33 01/04/20 22 01/03/2022 COMPL ETE BLOOD COUNT platelet count 328 K/uL 130-40 0 normal Not Available [facility] [address] [place] [address], [address], 01/03/2022 09:22:33 01/04/20 22 01/03/2022 COMPL ETE BLOOD COUNT neutrophil,a bsolute 2.9 K/uL 1.6-8. 4 normal Not Available [facility] [address] [place] [address], [address], 01/03/2022 09:22:33 01/04/20 22 01/03/2022 COMPL ETE BLOOD COUNT lymphocyte,a bsolute 3.0 K/uL 0.4-5. 1 normal Not Available [facility] [address] [place] [address], [address], 01/03/2022 09:22:33 01/04/20 22 01/03/2022 COMPL ETE BLOOD COUNT monocyte,abs olute 0.7 K/uL 0.0-1. 2 normal Not Available [facility] [address] [place] [address], [address], 01/03/2022 09:22:33 01/04/20 22 01/03/2022 COMPL ETE BLOOD COUNT eosinophil,a bsolute 0.2 K/uL 0.0-0. 8 normal Not Available [facility] [address] [place] [address], [address], 01/03/2022 09:22:33 01/04/20 22 01/03/2022 COMPL ETE BLOOD COUNT basophil,abs olute 0.1 K/uL 0.0-0. 3 normal Not Available [facility] [address] [place] [address], [address], 01/03/2022 09:22:33 01/04/2001/03/2022 COMPL ETE BLOOD COUNT % neutrophils 42.0 % 42.0-7 8.0 normal Not Available [facility] [address] [place] [address], [address], 01/03/2022 09:22:33 01/04/20 22 01/03/2022 COMPL ETE BLOOD COUNT % lymphocytes 42.8 % 11.0-4 7.0 normal Not Available [facility] [address] [place] [address], [address], 01/03/2022 09:22:33 01/04/20 22 01/03/2022 COMPL ETE BLOOD COUNT % monocytes 10.6 % 0.0-11 .0 normal Not Available [facility] [address] [place] [address], [address], 01/03/2022 09:22:33 01/04/2001/03/2022 COMPL ETE BLOOD COUNT % eosinophils 3.5 % 0.0-7. 0 normal Not Available [facility] [address] [place] [address], [address], 01/03/2022 09:22:33 01/04/2001/03/2022 COMPL ETE BLOOD COUNT % basophils 1.1 % 0.0-3. 0 normal Not Available [facility] [address] [place] [address], [address], 01/03/2022 09:22:33 01/04/2001/03/2022 COMPL ETE BLOOD COUNT nucleated red cells 0.0 % 0.0-0. 9 normal Not Available [facility] [address] [place] [address], [address], 01/03/2022 09:22:33 09/01/03/2022 COMPL ETE BLOOD COUNT nucleated RBCs, absolute 0.00 K/uL not estab. normal Not Available [facility] [address] [place], [address], 01/03/2022 09:22:33 05/09/19 18 05/07/2017 MAMMO , scree mary beth, tomos ynthe sis, bilat eral, w/ CAD No observ ation record ed. [email or web address] Not Available 2017 17:58:15 05/13/19 19 05/11/2018 MAMMO , scree mary beth, tomos ynthe sis, bilat eral, w/ CAD No observ ation record ed. [facility] [address] [place] [address], [phone], 05/13/2018 14:48:29 02/13/20 19 02/11/2019 audio gram No observ ation record ed. BARCODE Not Available 2018 09:39:21 Result Notes None recorded. 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 Procedures Surgical History Date Name Laterality Status Provider Name and Address Organization Details Recorded Time 02/12/20 19 Tympanogram completed SHELBY DANIELS [address] [place], [address], [facility] 02/11/2019 14:55:15 02/12/20 19 Audiogram completed ALEJO PRICE AUD [address] [place], [address], [facility] 02/11/2019 14:55:13 Appendectomy completed Reji Bailey [facility] 01/01/2017 10:01:29 Cholecystectomy completed Reji Vizuete-Ort [facility] 01/01/2017 10:01:43 Partial hysterectomy completed Reji Vizuete-Ort [facility] 01/01/2017 10:01:54 ligation of fallopian tube completed Sanjuanita [facility] 02/11/2019 13:57:51 Cholecystectomy completed Sanjuanita [facility] 02/11/2019 13:58:07 colonoscopy completed Sanjuanita [facility] 02/11/2019 13:58:31 procedure on neck completed Sanjuanita [facility] 02/11/2019 13:58:49 Imaging Results Imaging Date Name Status LastModified by Organiz ation Details LastModified Time 05/07/2017 MAMMO, screening, tomosynthesis, bilateral, w/ CAD completed [facility] Information not available 01/11/2018 17:58:15 05/11/2018 MAMMO, screening, tomosynthesis, bilateral, w/ CAD completed [facility] [address] [place] [address], [id number], 05/13/2018 14:48:29 02/11/2019 audiogram completed BAR[facility] Information no t available 02/12/2019 09:39:21 Procedure Notes None recorded. Medical Equipment None Reported. Allergies Allergen ID Allergen Name Allergen Category Reaction Reaction Severity Criticality Documentation Date Start Date Code Code System Note Provider Name and Address Organization Details Recorded Time 887620 hydrocodo ne bitartrat e medicatio n Not available Not available Not available 03/14/20162006 60586 9 RxNorm Comme nt: Creat ed By: Rodrigo Jarrett ie;Cr eated Date: 007 10:03 :41 AM; Not Available [facility] 6 10:54:39 743238 Prilosec medicatio n Not available Not available Not available 03/15/20162015 49208 5 RxNorm Comme nt: Creat ed By: Constance on Madina ;Crea arturo Date: 2015 10:06 :30 AM; Not Available [facility] 6 03:55:25 909217 Xarelto medicatio n Not available Not available Not available 03/15/20162015 70117 99 RxNorm Comme nt: Creat ed By: Constance ysabel morris Date: 2015 10:05 :15 AM; Not Available [facility] 6 07:45:15 236331 Calan medicatio n Not available Not available Not available 03/15/20162006 30630 0 RxNorm Comme nt: Creat ed By: Rodrigo massey;Andres eated Date: 007 10:04 :01 AM; Not Available [facility] 6 08:39:26 Medications Name Sig Start Date Stop Date Status Note LastModified by Organization Details LastModified Time Toprol XL 100 mg tablet,ext ended release Daily active Frequency: daily;Medi cation Descriptio n: metoprolol succinate; Dosage:1; Route:oral ; refills:0 Not Available Not Available Not Available 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 2018 active Not Available Not Available Not Avai lable Paxil 20 mg tablet Daily active Frequency: daily;Medi cation Descriptio n: paroxetine ; Dosage:1; Route:oral ; refills:5; Quantity:3 0 tablet Not Available Not Available Not Available spironolac tone 25 mg tablet Take 1 tablet every day by oral route. active Not Available Not Available No t Available Zofran 4 mg tablet TAKE 1 TABLETS Q4HRS PO NAUSEA 2018 active Not Available Not Available Not Avai lable Coumadin Daily active Instructio ns: 2.5mg MWF and 5mg every other day;Freque ncy: daily;Medi cation Descriptio n: warfarin; Dosage:as directed; refills:5; Quantity:3 0 Not Available Not Available Not Available Vitals Date Recorded Body height Body mass index (BMI) Body weight Body temperature Heart rate Systolic blood pressure Diastolic blood pressure Provider Name and Address Organization Details Last Updated DateTime 7 165.1 cm 45.7 kg/m2 135884. 18 g 97.5 [degF] 66 /min 131 mm[Hg] 86 mm[Hg] Reji BarreraO rtiz [facility] 7 10:05:00 Date Recorded Pain severity - 0-10 verbal numeric rating [Score] - Reported Provider Name and Address Organization Details Last Updated DateTime 01/01/2017 0 Not Available [facility] 8 10:32:16 Date Recorded Body height Body mass index (BMI) Body weight Body temperature Heart rate Heart rate Systolic blood pressure Diastolic blood pressure Systolic blood pressure Diastolic blood pressure Provider Name and Address Organization Details Last Updated DateTime 8 165.1 cm 47 kg/m2 862692. 84 g 97.5 [degF] 65 /min 65 /min 136 mm[Hg] 102 mm[Hg] 121 mm[Hg] 70 mm[Hg] Luis Enrique Valle [facility] 8 09:27:26 Date Recorded Body weight Body mass index (BMI) Body height Body temperature Heart rate Systolic blood pressure Diastolic blood pressure Provider Name and Address Organization Details Last Updated DateTime 9 598069. 9 g 45.8 kg/m2 165.1 cm 96.5 [degF] 83 /min 142 mm[Hg] 87 mm[Hg] Sanjuanita Wallace [facility] 9 14:22:22 Social History Question Answer Notes LastModified by Organizat ion Details LastModified Time Tobacco Smoking Status [facility]2017 10:02:11 What Is Your Level Of Alcohol Consumption? None [email or web address] Information not available 01/01/2017 Live Alone Or With Others? With Others [email or web address] Information not available 01/01/2017 Marital Status [email or web address] Informatio n not available 01/01/2017 What Was The Date Of Your Most Recent Tobacco Screening? 01/07/2018 Information not available 06/08/2019 Has Tobacco Cessation Counseling Been Provided? No Information not available 01/01/2017 Sex: Female Functional Status None recorded. Mental Status None recorded. Family History Relationship Description Onset Age of this Age Resolved Age Notes LastModified by Organization Details LastModified Time Mother Diabetes mellitus [email or web address] Not available 2016 09:59:31 Mother Family history of malignant neoplasm [email or web address] Not available 2016 09:59:47 Mother Heart disease [email or web address] Not available 2016 10:00:30 Mother Hyperlipidem ia [email or web address] Not available 2016 10:00:43 Mother Hypertensive disorder Not available 2016 10:00:58 Mother Asthma [email or web address] Not available 02/11/2019 13:56:11 Maternal Grandfather Family history of malignant neoplasm [email or web address] Not available 2016 09:59:47 Maternal Grandmother Family history of stroke [email or web address] Not available 2016 10:00:05 Father Heart disease [email or web address] Not available 2016 10:00:30 Sister Hypertensive disorder [email or web address] Not available 2016 10:00:58 Sister Disorder of thyroid gland [email or web address] Not available 02/11 13:55:10 Medical History Condition Response Blood Transfusion Y Cancer Y Gynecological HistoryNo gynecological history recorded. Obstetrics History GPAL:G 0 P 0 0 0 0 Past Encounters Encounter ID Performer Location Encounter Start Date Encounter Closed Date Diagnosis/Indication Diagnosis SNOMED-CT Code Diagnosis ICD10 Code Diagnosis Note [id number] SUSANNAH BALLARD MD [facility] [address],[facility] [address] [place] [address] 01/01/2017 09:05:16 01/01/2017 11:50:36 Blood coagulation disorder 80153946 D68.59 History of non-Hodgkins lymphoma 683846845 Z85.72 [id number] SUSANNAH BALLARD MD [facility] [address],[facility] [address] [place] [address] 01/07/2018 08:49:47 01/07/2018 10:46:01 Non-Hodgkin's lymphoma (clinical) 211272387 C85.80 E78.5 Blood coag ulation disorder 19066134 D68.59 Morbid obesity 068052232 E66.01 [id number] SUSANNAH BALLARD MD [facility] [address] [place] [address] 01/11/2019 08:55:10 01/11/2019 11:07:29 [id number] MILKA WALKER MD [place] [facility] [address] [place] [address] 02/11/2019 13:30:03 02/11/2019 15:57:14 Dysfunction of bilateral eustachian tubes 1885981198 908840 H69.93 Dizziness 901176890 R42 Nausea 701970543 R11.0 Migraine with aura 26918 06 G43.109 -hx Migraine 81956893 G43.90 9 vestibular [id number] SHELBY DANIELS [place] [facility] [address] [place] [address] 02/11/2019 14:39:21 02/11/2019 15:44:54 Dysfunction of bilateral eustachian tubes 3195965956 946998 H69.93 [id number] SUSANNAH BALLARD MD [facility] [address] [place] [address] 01/12/2020 09:03:57 01/12/2020 11:16:40 [id number] SUSANNAH BALLARD MD H[facility] [address] [place] [address] 01/10/2021 09:05:14 01/10/2021 12:50:40 [id number] SUSANNAH BALLARD MD H[facility] [address] [place] [address] 01/03/2022 09:08:05 01/03/2022 11:54:52 Health Concerns Section Related Observation LastModified by Organization Detai ls LastModified Time None Recorded Concern Status LastModified by Organization Details LastModified Time None Recorded Advance Directives Directive None Recorded Payers Encounter Date Sequence Insurance Name Policy Number Policy Lynn Covered Member ID Lynn Member ID Guarantor Name 01/01/2017 [place] [id number] Oskar Odell [id number] Jessica Odell 01/07/2018 1 [place] [id number] Oskar Odell [id number] Jessica Odell 02/11/2019 1 [place] [id number] Oskar Odell [id number] Jessica Odell 02/11/2019 1 [place] [employer] [place] [id number] Oskar Odell [id number] Jessica Odell Notes Date Note Type Note Provider Name and Address Organization Details Recorded Time 01/01/2017 text/html Ms. 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 She had 8 cycles of ProMACE-CytaBom chemotherapy, followed by thoracic radiation. Other medical history is significant for anti-thrombin III deficiency, DVT and PE in 2013, continuing on Coumadin, hysterectomy with incidental appendectomy in 1997, arthritis and obesity. SUSANNAH BALLARD MD [address] [place] [address], [phone], [facility] 02/16/2017 21:48:36 01/07/2018 text/html Ms. 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 She had 8 cycles of ProMACE-CytaBom chemotherapy, followed by thoracic radiation. Other medical history is significant for anti-thrombin III deficiency, DVT and PE in 2013, continuing on Coumadin, hysterectomy with incidental appendectomy in 1997, arthritis and obesity. SUSANNAH BALLARD MD [address] [place] [address], [phone], [facility] 01/11/2018 18:00:27 02/11/2019 text/html Jessica is a 53 ye ar old female being seen in the office in consultation at the request of Dr. Martin Peña for an evaluation of recurrent otitis media. Jessica states that she has been diagnosed with three separate cases of retained fluid in bilateral ears. She states that she does experience dizziness during the ear issues. She states that her hearing is muffled during this time. Jessica does state that her left ear is worse than her right ear. She does state that she has experience nausea with the dizziness. There are no triggers that bring on the dizziness. Jessica states that she has notice improvement with cortizone and prednisone treatment. Jessica does have history of ocular migraines. She states that she did noticed flashing lights when she experienced the headaches. She did not medically treat the migraines but states darkness and rest helped. Jessica is sensitive to certain scents. MILKA WALKER MD [address] [place], [address], [facility] 02/11/2019 18:17:57 OBGyn Episode No OBEpisode recorded.
--- NOTE | 2024-08-04 15:15 | CA_ITS ---
FINAL REPORT TECHNIQUE: Right lower extremity venous duplex was performed with augmentation and compression. CLINICAL HISTORY: Right calf pain, Previous DVT, Abnormal clotting disorder COMPARISON: None FINDINGS: Proper flow is seen throughout the deep venous system from the popliteal vein through the common femoral vein. There is no evidence of deep venous thrombosis above the knee in the right leg. In the right calf, however, there is lack of compressibility in the right posterior tibial vein consistent with DVT of the proximal to mid posterior tibial vein. IMPRESSION: There is no evidence of deep venous thrombosis above the knee in the right leg. Findings are consistent with posterior tibial vein thrombosis of the right calf. Reviewed, Interpreted and Dictated by Mack Lopez MD Transcribed by Tessy Daley Authenticated and [facility]
== END 2024-08-04 23:59 | disposition home or self-care (01) ==
LOC: RT 15:05
PROVIDERS: PCP Internal Medicine; Visit Provider Internal Medicine
DX: I82.401 Acute embolism and thrombosis of unspecified deep veins of right lower extremity (principal); D68.59 Other primary thrombophilia
CPT/HCPCS: 93971

== ENCOUNTER 2024-08-05 08:13 | Outpatient (CLI) | payer OTHER, SELFPAY ==
[2024-08-05 09:58] LABS: PHA INR Fingerstick 2.2 (0.9-1.1)
== END 2024-08-05 10:00 ==
LOC: ACC 08:15
PROVIDERS: PCP Internal Medicine; Visit Provider Internal Medicine
DX: Z79.01 Long term (current) use of anticoagulants (principal); Z86.718 Personal history of other venous thrombosis and embolism
CPT/HCPCS: 85610; 99211; G0463

== ENCOUNTER 2024-08-10 08:26 | Outpatient (CLI) | payer OTHER, SELFPAY ==
--- OUTSIDE RECORDS SUMMARY | 2024-08-10 08:29 | XMS_ITS | Data Portability ---
Author Organization [facility] [place] [facility] Address [address] [facility] [address] [place] [address] Care Team Providers Care Chronic Disease Manager Name Role Phone SUSANNAH BALLARD Hematology/Oncology MARTIN PEÑA Primary Care Provider [phone] Assessment Encounter Date Assessment Date Assessment LastModified [...] Orders Zofran 4 mg tablet 2018 019 [facility] #[id number], [address], [id number], 9 17:40:33 Maxalt-ML T 10 mg disintegr ating tablet 2018 019 [facility] #[id number], [address], [id number], 17:40:33 Patient TargetsNo targets recorded. Patient Instructions Encounter Date Encounter Id Patient Instructions Last Modified By Organization Details Last Modified Time 01/01/2017 [id number] learning about healthy weight IRVING Not available 02/17/2017 11:11:29 01/07/2018 [id number] non-hodgkin lymphoma: care instructions sliddle Not available 01/07/2018 10:31:08 When You Want to Lose Weight: Care Instructions sliddle Not available 01/07/2018 10:31:28 02/11/2019 [id number] nausea and vomiting: care instructions gosetinsky Not [...] 4.8 K/uL 3.8-10 .8 normal Not Available [facility] [address] [place] [address], [address], 01/01/2017 09:35:48 01/02/2001/01/2017 CBC w/ auto diff red blood cells 4.85 M/uL 3.80-5 .20 normal Not Available [facility] [address] [place], [address], 01/01/2017 09:35:48 01/02/20 17 01/01/2017 CBC w/ auto diff hemoglobin 13.6 g/dL 12.0-1 6.0 normal Not Available [facility] [address] [place] [address], [address], 01/01/2017 09:35:48 01/02/2001/01/2017 CBC w/ auto diff hematocrit 41.4 % 35.0-4 7.0 normal Not Available [facility] [address] [place] [address], [address], 01/01/2017 09:35:48 01/02/2001/01/2017 CBC w/ auto diff MCV 85 fL 80-100 normal Not Available [facility] [address] [place] [address], [address], 01/01/2017 09:35:48 01/02/2001/01/2017 CBC w/ auto diff MCH 28 pg 26-35 normal Not Available [facility] [address] [place] [address], [address], 01/01/2017 09:35:48 01/02/2001/01/2017 CBC w/ auto diff MCHC 33 g/dL 32-36 normal Not Available [facility] [address] [place] [address], [address], 01/01/2017 09:35:48 01/02/2001/01/2017 CBC w/ auto diff RDW 14.6 % 11.0-1 5.0 normal Not Available [facility] [address] [place] [address], [address], 01/01/2017 09:35:48 01/02/2001/01/2017 CBC w/ auto diff MPV 7.5 fL 6.2-10 .5 normal Not Available [facility] [address] [place] [address], [address], 01/01/2017 09:35:48 01/02/2001/01/2017 CBC w/ auto diff platelet count 239 K/uL 130-40 0 normal Not Available [facility] [address] [place] [address], [address], 01/01/2017 09:35:48 01/02/2001/01/2017 CBC w/ auto diff neutrophil,a bsolute 1.9 K/uL 1.6-8. 4 normal Not Available [facility] [address] [place], [address], 01/01/2017 09:35:48 01/02/2001/01/2017 CBC w/ auto diff lymphocyte,a bsolute 2.2 K/uL 0.4-5. 1 normal Not Available [facility] [address] [place] [address], [address], 01/01/2017 09:35:48 01/02/2001/01/2017 CBC w/ auto diff monocyte,abs olute 0.4 K/uL 0.0-1. 2 normal Not Available [facility] [address] [place] [address], [address], 01/01/2017 09:35:48 01/02/2001/01/2017 CBC w/ auto diff eosinophil,a bsolute 0.2 K/uL 0.0-0. 8 normal Not Available [facility] [address] [place] [address], [address], 01/01/2017 09:35:48 01/02/2001/01/2017 CBC w/ auto diff basophil,abs olute 0.0 K/uL 0.0-0. 3 normal Not Available [facility] [address] [place] [address], [address], 01/01/2017 09:35:48 01/02/2001/01/2017 CBC w/ auto diff % neutrophils 40.6 % 42.0-7 8.0 low Not Available [facility] [address] [place] [address], [address], 01/01/2017 09:35:48 01/02/2001/01/2017 CBC w/ auto diff % lymphocytes 45.6 % 11.0-4 7.0 normal Not Available [facility] [address] [place] [address], [address], 01/01/2017 09:35:48 01/02/2001/01/2017 CBC w/ auto diff % monocytes 8.8 % 0.0-11 .0 normal Not Available [facility] [address] [place] [address], [address], 01/01/2017 09:35:48 01/02/2001/01/2017 CBC w/ auto diff % eosinophils 4.0 % 0.0-7. 0 normal Not Available [facility] [address] [place] [address], [address], 01/01/2017 09:35:48 01/02/2001/01/2017 CBC w/ auto diff % basophils 1.0 % 0.0-3. 0 normal Not Available [facility] [address] [place] [address], [address], 01/01/2017 09:35:48 01/02/2001/01/2017 CBC w/ auto diff nucleated red cells 0.2 % 0.0-0. 9 normal Not Available [facility] [address] [place] [address], [address], 01/01/2017 09:35:48 01/02/2001/01/2017 CBC w/ auto diff nucleated RBCs, absolute 0.01 K/uL not estab. normal Not Available [facility] [address] [place] [address], [address], 01/01/2017 09:35:48 01/02/2001/01/2017 CMP, serum or plasm a glucose 95 mg/dL 74-100 normal Not Available [facility] [address] [place] [address], [address], 01/01/2017 10:04:58 01/02/2001/01/2017 CMP, serum or plasm a blood urea nitrogen 10 mg/dL 6-20 normal Not Available [facility] [address] [place] [address], [address], 01/01/2017 10:04:58 01/02/2001/0101/01/2017 CMP, serum or plasm a creatinine 0.81 mg/dL 0.50-0 .95 normal Not Available [facility] [address] [place] [address], [address], 01/01/2017 10:04:58 01/02/20 17 01/01/2017 CMP, serum or plasm a BUN/creatini ne ratio 12 (calc ) 10-20 normal Not Available [facility] [address] [place] [address], [address], 01/01/2017 10:04:58 01/02/20 17 01/01/2017 CMP, serum or plasm a GFR 96 >= 60 normal Not Available [facility] [address] [place] [address], [address], 01/01/2017 10:04:58 01/02/20 17 01/01/2017 CMP, serum [...] s or longe r. . Not Available [facility] [address] [place], [address], 01/01/2017 10:04:58 01/02/20 17 01/01/2017 CMP, serum or plasm a sodium 138 mmol/ L 136-14 5 normal Not Available [facility] [address] [place] [address], [address], 01/01/2017 10:04:58 01/02/20 17 01/01/2017 CMP, serum or plasm a potassium 4.2 mmol/ L 3.4-5. 0 normal Not Available [facility] [address] [place], [address], 01/01/2017 10:04:58 01/02/20 17 01/01/2017 CMP, serum or plasm a chloride 101 mmol/ L 98-107 normal Not Available [facility] [address] [place] [address], [address], 01/01/2017 10:04:58 01/02/20 17 01/01/2017 CMP, serum or plasm a carbon dioxide 22 mmol/ L 20-32 normal Not Available [facility] [address] [place] [address], [address], 01/01/2017 10:04:58 01/02/20 17 01/01/2017 CMP, serum or plasm a anion gap 15 (calc ) 7-25 normal Not Available [facility] [address] [place] [address], [address], 01/01/2017 10:04:58 01/02/20 17 01/01/2017 CMP, serum or plasm a calcium 8.9 mg/dL 8.6-10 .2 normal Not Available [facility] [address] [place] [address], [address], 01/01/2017 10:04:58 01/02/20 17 01/01/2017 CMP, serum or plasm a total protein 7.3 g/dL 6.4-8. 3 normal Not Available [facility] [address] [place] [address], [address], 01/01/2017 10:04:58 01/02/20 17 01/01/2017 CMP, serum or plasm a albumin 3.9 g/dL 3.5-5. 2 normal Not Available [facility] [address] [place] [address], [address], 01/01/2017 10:04:58 01/02/20 17 01/01/2017 CMP, serum or plasm a globulin 3.4 g/dL_ (calc ) 1.5-4. 5 normal Not Available [facility] [address] [place] [address], [address], 01/01/2017 10:04:58 01/02/20 17 01/01/2017 CMP, serum or plasm a albumin/glob ulin ratio 1.1 (calc ) 1.1-2. 5 normal Not Available [facility] [address] [place] [address], [address], 01/01/2017 10:04:58 01/02/20 17 01/01/2017 CMP, serum or plasm a bilirubin, total 0.5 mg/dL 0.1-1. 2 normal Not Available [facility] [address] [place] [address], [address], 01/01/2017 10:04:58 01/02/20 17 01/01/2017 CMP, serum or plasm a alkaline phosphatase 61 U/L 35-105 normal Not Available [facility] [address] [place] [address], [address], 01/01/2017 10:04:58 01/02/20 17 01/01/2017 CMP, serum or plasm a AST 23 U/L 0-32 normal Not Available [facility] [address] [place] [address], [address], 01/01/2017 10:04:58 01/02/20 17 01/01/2017 CMP, serum or plasm a ALT 14 U/L 0-33 normal Not Available [facility] [address] [place] [address], [address], 01/01/2017 10:04:58 01/02/20 17 01/01/2017 lipid panel , serum HDL cholesterol 65 mg/dL 66-242 low Not Available [facility] [address] [place] [address], [address], 01/01/2017 10:05:00 01/02/20 17 01/01/2017 lipid panel , serum triglyceride s 131 mg/dL 0-149 normal TRIGL YCERI DE RANGE S SUSI L: < 150 BORDE RLINE HIGH: 150 - 199 HIGH: 200 - 499 VERY HIGH: > OR = 500 Not Available [facility] [address] [place] [address], [address], 01/01/2017 10:05:00 01/02/20 17 01/01/2017 lipid panel , serum cholesterol 223 mg/dL 0-199 high ELVA STERO L (TOTA L) RANGE S WU ABLE: < 200 BORDE RLINE : 200 - 239 HIGHE R RISK: > 239 Not Available [facility] [address] [place] [address], [address], 01/01/2017 10:05:00 01/02/20 17 01/01/2017 lipid panel , serum LDL cholesterol 132 mg/dL _(diaz c) 0-99 high LDL ELVA STERO L RANGE S OPTIM AL: < 100 NEAR/ ABOVE OPTIM AL: 100 - 129 BORDE RLINE HIGH: 130 - 159 HIGH: 160 - 189 VERY HIGH: > OR = 190 Not Available [facility] [address] [place] [address], [address], 01/01/2017 10:05:00 01/08/20 18 01/07/2018 CBC w/ auto diff white blood cells 4.8 K/uL 3.8-10 .8 normal Not Available [facility] [address] [place] [address], [address], 01/07/2018 09:32:31 01/08/20 18 01/07/2018 CBC w/ auto diff red blood cells 4.53 M/uL 3.80-5 .20 normal Not Available [facility] [address] [place] [address], [address], 01/07/2018 09:32:31 01/08/20 18 01/07/2018 CBC w/ auto diff hemoglobin 13.4 g/dL 12.0-1 6.0 normal Not Available [facility] [address] [place] [address], [address], 01/07/2018 09:32:31 01/08/20 18 01/07/2018 CBC w/ auto diff hematocrit 38.8 % 35.0-4 7.0 normal Not Available [facility] [address] [place], [address], 01/07/2018 09:32:31 01/08/20 18 01/07/2018 CBC w/ auto diff MCV 86 fL 80-100 normal Not Available [facility] [address] [place] [address], [address], 01/07/2018 09:32:31 01/08/20 18 01/07/2018 CBC w/ auto diff MCH 30 pg 26-35 normal Not Available [facility] [address] [place] [address], [address], 01/07/2018 09:32:31 01/08/20 18 01/07/2018 CBC w/ auto diff MCHC 34 g/dL 32-36 normal Not Available [facility] [address] [place] [address], [address], 01/07/2018 09:32:31 01/08/20 18 01/07/2018 CBC w/ auto diff RDW 14.3 % 11.0-1 5.0 normal Not Available [facility] [address] [place] [address], [address], 01/07/2018 09:32:31 01/08/20 18 01/07/2018 CBC w/ auto diff MPV 7.7 fL 6.2-10 .5 normal Not Available [facility] [address] [place] [address], [address], 01/07/2018 09:32:31 01/08/20 18 01/07/2018 CBC w/ auto diff platelet count 268 K/uL 130-40 0 normal Not Available [facility] [address] [place] [address], [address], 01/07/2018 09:32:31 01/08/20 18 01/07/2018 CBC w/ auto diff neutrophil,a bsolute 1.9 K/uL 1.6-8. 4 normal Not Available [facility] [address] [place] [address], [address], 01/07/2018 09:32:31 01/08/20 18 01/07/2018 CBC w/ auto diff lymphocyte,a bsolute 2.2 K/uL 0.4-5. 1 normal Not Available [facility] [address] [place] [address], [address], 01/07/2018 09:32:31 01/08/20 18 01/07/2018 CBC w/ auto diff monocyte,abs olute 0.5 K/uL 0.0-1. 2 normal Not Available [facility] [address] [place] [address], [address], 01/07/2018 09:32:31 01/08/20 18 01/07/2018 CBC w/ auto diff eosinophil,a bsolute 0.2 K/uL 0.0-0. 8 normal Not Available [facility] [address] [place] [address], [address], 01/07/2018 09:32:31 01/08/20 18 01/07/2018 CBC w/ auto diff basophil,abs olute 0.0 K/uL 0.0-0. 3 normal Not Available [facility] [address] [place] [address], [address], 01/07/2018 09:32:31 01/08/20 18 01/07/2018 CBC w/ auto diff % neutrophils 40.4 % 42.0-7 8.0 low Not Available [facility] [address] [place] [address], [address], 01/07/2018 09:32:31 01/08/20 18 01/07/2018 CBC w/ auto diff % lymphocytes 44.9 % 11.0-4 7.0 normal Not Available [facility] [address] [place] [address], [address], 01/07/2018 09:32:31 01/08/20 18 01/07/2018 CBC w/ auto diff % monocytes 10.6 % 0.0-11 .0 normal Not Available [facility] [address] [place] [address], [address], 01/07/2018 09:32:31 01/08/20 18 01/07/2018 CBC w/ auto diff % eosinophils 3.3 % 0.0-7. 0 normal Not Available [facility] [address] [place] [address], [address], 01/07/2018 09:32:31 01/08/20 18 01/07/2018 CBC w/ auto diff % basophils 0.8 % 0.0-3. 0 normal Not Available [facility] [address] [place] [address], [address], 01/07/2018 09:32:31 01/08/20 18 01/07/2018 CBC w/ auto diff nucleated red cells 0.2 % 0.0-0. 9 normal Not Available [facility] [address] [place] [address], [address], 01/07/2018 09:32:31 01/08/20 18 01/07/2018 CBC w/ auto diff nucleated RBCs, absolute 0.01 K/uL not estab. normal Not Available [facility] [address] [place] [address], [address], 01/07/2018 09:32:31 01/08/20 18 01/07/2018 CMP, serum or plasm a glucose 104 mg/dL 74-100 high Not Available [facility] [address] [place] [address], [address], 01/07/2018 09:55:17 01/08/20 18 01/07/2018 CMP, serum or plasm a blood urea nitrogen 9 mg/dL 6-20 normal Not Available [facility] [address] [place], [address], 01/07/2018 09:55:17 01/08/20 18 01/07/2018 CMP, serum or plasm a creatinine 0.85 mg/dL 0.50-0 .95 normal Not Available [facility] [address] [place] [address], [address], 01/07/2018 09:55:17 01/08/20 18 01/07/2018 CMP, serum or plasm a BUN/creatini ne ratio 11 (calc ) 10-20 normal Not Available [facility] [address] [place] [address], [address], 01/07/2018 09:55:17 01/08/20 18 01/07/2018 CMP, serum or plasm a sodium 138 mmol/ L 136-14 5 normal Not Available [facility] [address] [place] [address], [address], 01/07/2018 09:55:17 01/08/20 18 01/07/2018 CMP, serum or plasm a potassium 4.6 mmol/ L 3.4-5. 0 normal Not Available [facility] [address] [place] [address], [address], 01/07/2018 09:55:17 01/08/20 18 01/07/2018 CMP, serum or plasm a chloride 101 mmol/ L 98-107 normal Not Available [facility] [address] [place] [address], [address], 01/07/2018 09:55:17 01/08/20 18 01/07/2018 CMP, serum or plasm a carbon dioxide 29 mmol/ L 20-32 normal Not Available [facility] [address] [place] [address], [address], 01/07/2018 09:55:17 01/08/20 18 01/07/2018 CMP, serum or plasm a anion gap 8 (calc ) 7-25 normal Not Available [facility] [address] [place] [address], [address], 01/07/2018 09:55:17 01/08/20 18 01/07/2018 CMP, serum or plasm a calcium 9.2 mg/dL 8.6-10 .2 normal Not Available [facility] [address] [place] [address], [address], 01/07/2018 09:55:17 01/08/20 18 01/07/2018 CMP, serum or plasm a total protein 7.2 g/dL 6.4-8. 3 normal Not Available [facility] [address] [place] [address], [address], 01/07/2018 09:55:17 01/08/20 18 01/07/2018 CMP, serum or plasm a albumin 3.9 g/dL 3.5-5. 2 normal Not Available [facility] [address] [place] [address], [address], 01/07/2018 09:55:17 01/08/20 18 01/07/2018 CMP, serum or plasm a globulin 3.3 g/dL_ (calc ) 1.5-4. 5 normal Not Available [facility] [address] [place] [address], [address], 01/07/2018 09:55:17 01/08/2001/07/2018 CMP, serum or plasm a albumin/glob ulin ratio 1.2 (calc ) 1.1-2. 5 normal Not Available [facility] [address] [place] [address], [address], 01/07/2018 09:55:17 01/08/2001/07/2018 CMP, serum or plasm a bilirubin, total 0.6 mg/dL 0.1-1. 2 normal Not Available [facility] [address] [place] [address], [address], 01/07/2018 09:55:17 01/08/2001/07/2018 CMP, serum or plasm a alkaline phosphatase 55 U/L 35-105 normal Not Available [facility] [address] [place], [address], 01/07/2018 09:55:17 01/08/20 18 01/07/2018 CMP, serum or plasm a AST 18 U/L 0-32 normal Not Available [facility] [address] [place], [address], 01/07/2018 09:55:17 01/08/20 18 01/07/2018 CMP, serum or plasm a ALT 13 U/L 0-33 normal Not Available [facility] [address] [place], [address], 01/07/2018 09:55:17 01/08/20 18 01/07/2018 CMP, serum or plasm a GFR 90 >= 60 normal Not Available [facility] [address] [place], [address], 01/07/2018 09:55:17 01/08/20 18 01/07/2018 CMP, serum [...] s or longe r. . Not Available [facility] [address] [place], [address], 01/07/2018 09:55:17 01/08/20 18 01/07/2018 lipid panel , serum HDL cholesterol 62 mg/dL 66-242 low Not Available [facility] [address] [place], [address], 01/07/2018 09:55:19 01/08/20 18 01/07/2018 lipid panel , serum triglyceride s 125 mg/dL 0-149 normal TRIGL YCERI DE RANGE S SUSI L: < 150 BORDE RLINE HIGH: 150 - 199 HIGH: 200 - 499 VERY HIGH: > OR = 500 Not Available [facility] [address] [place] [address], [address], 01/07/2018 09:55:19 01/08/2001/07/2018 lipid panel , serum cholesterol 240 mg/dL 0-199 high ELVA STERO L (TOTA L) RANGE S WU ABLE: < 200 BORDE RLINE : 200 - 239 HIGHE R RISK: > 239 Not Available [facility] [address] [place] [address], [address], 01/07/2018 09:55:19 01/08/2001/07/2018 lipid panel , serum LDL cholesterol 153 mg/dL _(diaz c) 0-99 high LDL ELVA STERO L RANGE S OPTIM AL: < 100 NEAR/ ABOVE OPTIM AL: 100 - 129 BORDE RLINE HIGH: 130 - 159 HIGH: 160 - 189 VERY HIGH: > OR = 190 Not Available [facility] [address] [place] [address], [address], 01/07/2018 09:55:19 01/12/2001/11/2019 CMP, serum or plasm a glucose 108 mg/dL 74-100 high Not Available [facility] [address] [place] [address], [address], 01/11/2019 09:17:14 01/12/2001/11/2019 CMP, serum or plasm a blood urea nitrogen 10 mg/dL 6-20 normal Not Available [facility] [address] [place], [address], 01/11/2019 09:17:14 01/12/2001/11/2019 CMP, serum or plasm a creatinine 0.92 mg/dL 0.50-0 .95 normal Not Available [facility] [address] [place] [address], [address], 01/11/2019 09:17:14 01/12/20 19 01/11/2019 CMP, serum or plasm a BUN/creatini ne ratio 11 (calc ) 10-20 normal Not Available [facility] [address] [place] [address], [address], 01/11/2019 09:17:14 01/12/20 19 01/11/2019 CMP, serum or plasm a sodium 139 mmol/ L 136-14 5 normal Not Available [facility] [address] [place] [address], [address], 01/11/2019 09:17:14 01/12/2001/11/2019 CMP, serum or plasm a potassium 4.2 mmol/ L 3.4-5. 0 normal Not Available [facility] [address] [place] [address], [address], 01/11/2019 09:17:14 01/12/2001/11/2019 CMP, serum or plasm a chloride 101 mmol/ L 98-107 normal Not Available [facility] [address] [place] [address], [address], 01/11/2019 09:17:14 01/12/2001/11/2019 CMP, serum or plasm a carbon dioxide 24 mmol/ L 20-32 normal Not Available [facility] [address] [place] [address], [address], 01/11/2019 09:17:14 01/12/2001/11/2019 CMP, serum or plasm a anion gap 14 (calc ) 7-25 normal Not Available [facility] [address] [place] [address], [address], 01/11/2019 09:17:14 01/12/2001/11/2019 CMP, serum or plasm a calcium 9.0 mg/dL 8.6-10 .2 normal Not Available [facility] [address] [place] [address], [address], 01/11/2019 09:17:14 01/12/2001/11/2019 CMP, serum or plasm a total protein 6.8 g/dL 6.4-8. 3 normal Not Available [facility] [address] [place] [address], [address], 01/11/2019 09:17:14 01/12/2001/11/2019 CMP, serum or plasm a albumin 3.9 g/dL 3.5-5. 2 normal Not Available [facility] [address] [place] [address], [address], 01/11/2019 09:17:14 01/12/2001/11/2019 CMP, serum or plasm a globulin 2.9 g/dL_ (calc ) 1.5-4. 5 normal Not Available [facility] [address] [place] [address], [address], 01/11/2019 09:17:14 01/12/2001/11/2019 CMP, serum or plasm a albumin/glob ulin ratio 1.3 (calc ) 1.1-2. 5 normal Not Available [facility] [address] [place] [address], [address], 01/11/2019 09:17:14 01/12/2001/11/2019 CMP, serum or plasm a bilirubin, total 0.4 mg/dL 0.1-1. 2 normal Not Available [facility] [address] [place] [address], [address], 01/11/2019 09:17:14 01/12/2001/11/2019 CMP, serum or plasm a alkaline phosphatase 55 U/L 35-105 normal Not Available [facility] [address] [place], [address], 01/11/2019 09:17:14 01/12/2001/11/2019 CMP, serum or plasm a AST 16 U/L 0-32 normal Not Available [facility] [address] [place], [address], 01/11/2019 09:17:14 01/12/20 19 01/11/2019 CMP, serum or plasm a ALT 12 U/L 0-33 normal Not Available [facility] [place], [address], 01/11/2019 09:17:14 01/12/20 19 01/11/2019 CMP, serum or plasm a GFR 81 >= 60 normal Not Available [facility] [address] [place], [address], 01/11/2019 09:17:14 01/12/20 19 01/11/2019 CMP, serum [...] month s or longe r. Not Available [facility] [address] [place] [address], [address], 01/11/2019 09:17:14 01/12/2001/11/2019 CBC w/ auto diff white blood cells 5.9 K/uL 3.8-10 .8 normal Not Available [facility] [address] [place] [address], [address], 01/11/2019 09:02:43 01/12/2001/11/2019 CBC w/ auto diff red blood cells 4.35 M/uL 3.80-5 .20 normal Not Available [facility] [address] [place] [address], [address], 01/11/2019 09:02:43 01/12/2001/11/2019 CBC w/ auto diff hemoglobin 12.7 g/dL 12.0-1 6.0 normal Not Available [facility] [address] [place] [address], [phone], 01/11/2019 09:02:43 01/12/20 19 01/11/2019 CBC w/ auto diff hematocrit 37.6 % 35.0-4 7.0 normal Not Available [facility] [address] [place] [address], [phone], 01/11/2019 09:02:43 01/12/20 19 01/11/2019 CBC w/ auto diff MCV 87 fL 80-100 normal Not Available [facility] [address] [place] [address], [phone], 01/11/2019 09:02:43 01/12/2001/11/2019 CBC w/ auto diff MCH 29 pg 26-35 normal Not Available [facility] [address] [place] [address], [phone], 01/11/2019 09:02:43 01/12/2001/11/2019 CBC w/ auto diff MCHC 34 g/dL 32-36 normal Not Available [facility] [address] [place] [address], [address], 01/11/2019 09:02:43 01/12/2001/11/2019 CBC w/ auto diff RDW 14.5 % 11.0-1 5.0 normal Not Available [facility] [address] [place] [address], [address], 01/11/2019 09:02:43 01/12/2001/11/2019 CBC w/ auto diff MPV 7.3 fL 6.2-10 .5 normal Not Available [facility] [address] [place] [address], [address], 01/11/2019 09:02:43 01/12/2001/11/2019 CBC w/ auto diff platelet count 250 K/uL 130-40 0 normal Not Available [facility] [address] [place], [address], 01/11/2019 09:02:43 01/12/2001/11/2019 CBC w/ auto diff neutrophil,a bsolute 2.4 K/uL 1.6-8. 4 normal Not Available [facility] [address] [place] [address], [address], 01/11/2019 09:02:43 01/12/2001/11/2019 CBC w/ auto diff lymphocyte,a bsolute 2.8 K/uL 0.4-5. 1 normal Not Available [facility] [address] [place] [address], [address], 01/11/2019 09:02:43 01/12/2001/11/2019 CBC w/ auto diff monocyte,abs olute 0.5 K/uL 0.0-1. 2 normal Not Available [facility] [address] [place] [address], [address], 01/11/2019 09:02:43 01/12/2001/11/2019 CBC w/ auto diff eosinophil,a bsolute 0.2 K/uL 0.0-0. 8 normal Not Available [facility] [address] [place] [address], [address], 01/11/2019 09:02:43 01/12/2001/11/2019 CBC w/ auto diff basophil,abs olute 0.1 K/uL 0.0-0. 3 normal Not Available [facility] [address] [place] [address], [address], 01/11/2019 09:02:43 01/12/2001/11/2019 CBC w/ auto diff % neutrophils 40.6 % 42.0-7 8.0 low Not Available [facility] [address] [place] [address], [address], 01/11/2019 09:02:43 01/12/2001/11/2019 CBC w/ auto diff % lymphocytes 46.9 % 11.0-4 7.0 normal Not Available [facility] [address] [place] [address], [address], 01/11/2019 09:02:43 01/12/2001/11/2019 CBC w/ auto diff % monocytes 8.2 % 0.0-11 .0 normal Not Available [facility] [address] [place] [address], [address], 01/11/2019 09:02:43 01/12/2001/11/2019 CBC w/ auto diff % eosinophils 3.4 % 0.0-7. 0 normal Not Available [facility] [address] [place] [address], [address], 01/11/2019 09:02:43 01/12/2001/11/2019 CBC w/ auto diff % basophils 0.9 % 0.0-3. 0 normal Not Available [facility] [address] [place] [address], [address], 01/11/2019 09:02:43 01/12/2001/11/2019 CBC w/ auto diff nucleated red cells 0.1 % 0.0-0. 9 normal Not Available [facility] [address] [place] [address], [address], 01/11/2019 09:02:43 01/12/2001/11/2019 CBC w/ auto diff nucleated RBCs, absolute 0.01 K/uL not estab. normal Not Available [facility] [address] [place] [address], [address], 01/11/2019 09:02:43 01/12/2001/12/2020 CMP, serum or plasm a glucose 105 mg/dL 74-100 high Not Available [facility] [address] [place] [address], [address], 01/12/2020 09:32:21 01/12/2001/12/2020 CMP, serum or plasm a blood urea nitrogen 8 mg/dL 6-20 normal Not Available [facility] [address] [place] [address], [address], 01/12/2020 09:32:21 01/12/20 20 01/12/2020 CMP, serum or plasm a creatinine 0.86 mg/dL 0.50-0 .95 normal Not Available [facility] [address] [place] [address], [address], 01/12/2020 09:32:21 01/12/20 20 01/12/2020 CMP, serum or plasm a BUN/creatini ne ratio 9 (calc ) 10-20 low Not Available [facility] [address] [place] [address], [address], 01/12/2020 09:32:21 01/12/20 20 01/12/2020 CMP, serum or plasm a sodium 139 mmol/ L 136-14 5 normal Not Available [facility] [address] [place] [address], [address], 01/12/2020 09:32:21 01/12/20 20 01/12/2020 CMP, serum or plasm a potassium 4.2 mmol/ L 3.4-5. 0 normal Not Available [facility] [address] [place] [address], [address], 01/12/2020 09:32:21 01/12/20 20 01/12/2020 CMP, serum or plasm a chloride 103 mmol/ L 98-107 normal Not Available [facility] [address] [place] [address], [address], 01/12/2020 09:32:21 01/12/20 20 01/12/2020 CMP, serum or plasm a carbon dioxide 28 mmol/ L 20-32 normal Not Available [facility] [address] [place] [address], [address], 01/12/2020 09:32:21 01/12/20 20 01/12/2020 CMP, serum or plasm a anion gap 8 (calc ) 7-25 normal Not Available [facility] [address] [place] [address], [address], 01/12/2020 09:32:21 01/12/2001/12/2020 CMP, serum or plasm a calcium 9.1 mg/dL 8.6-10 .2 normal Not Available [facility] [address] [place] [address], [address], 01/12/2020 09:32:21 01/12/20 20 01/12/2020 CMP, serum or plasm a total protein 6.7 g/dL 6.4-8. 3 normal Not Available [facility] [address] [place] [address], [address], 01/12/2020 09:32:21 01/12/2001/12/2020 CMP, serum or plasm a albumin 4.1 g/dL 3.5-5. 2 normal Not Available [facility] [address] [place] [address], [address], 01/12/2020 09:32:21 01/12/2001/12/2020 CMP, serum or plasm a globulin 2.6 g/dL_ (calc ) 1.5-4. 5 normal Not Available [facility] [address] [place] [address], [address], 01/12/2020 09:32:21 01/12/2001/12/2020 CMP, serum or plasm a albumin/glob ulin ratio 1.6 (calc ) 1.1-2. 5 normal Not Available [facility] [address] [place] [address], [address], 01/12/2020 09:32:21 01/12/2001/12/2020 CMP, serum or plasm a bilirubin, total 0.3 mg/dL 0.1-1. 2 normal Not Available [facility] [address] [place] [address], [address], 01/12/2020 09:32:21 01/12/2001/12/2020 CMP, serum or plasm a alkaline phosphatase 58 U/L 35-105 normal Not Available [facility] [address] [place], [address], 01/12/2020 09:32:21 01/12/20 20 01/12/2020 CMP, serum or plasm a AST 20 U/L 0-32 normal Not Available [facility] [address] [place] [address], [address], 01/12/2020 09:32:21 01/12/20 20 01/12/2020 CMP, serum or plasm a ALT 12 U/L 0-33 normal Not Available [facility] [address] [place] [address], [address], 01/12/2020 09:32:21 01/12/20 20 01/12/2020 CMP, serum or plasm a GFR 87 >= 60 normal Not Available [facility] [address] [place], [address], 01/12/2020 09:32:21 01/12/2001/12/2020 CMP, serum or plasm [...] month s or longe r. Not Available [facility] [place], [address], 01/12/2020 09:32:21 01/12/20 20 01/12/2020 CBC w/ auto diff white blood cells 5.1 K/uL 3.8-10 .8 normal Not Available [facility] [address] [place] [address], [address], 01/12/2020 09:07:06 01/12/20 20 01/12/2020 CBC w/ auto diff red blood cells 4.59 M/uL 3.80-5 .20 normal Not Available [facility] [address] [place] [address], [address], 01/12/2020 09:07:06 01/12/20 20 01/12/2020 CBC w/ auto diff hemoglobin 13.3 g/dL 12.0-1 6.0 normal Not Available [facility] [address] [place] [address], [address], 01/12/2020 09:07:06 01/12/2001/12/2020 CBC w/ auto diff hematocrit 39.6 % 35.0-4 7.0 normal Not Available [facility] [address] [place] [address], [address], 01/12/2020 09:07:06 01/12/2001/12/2020 CBC w/ auto diff MCV 86 fL 80-100 normal Not Available [facility] [address] [place] [address], [address], 01/12/2020 09:07:06 01/12/2001/12/2020 CBC w/ auto diff MCH 29 pg 26-35 normal Not Available [facility] [address] [place] [address], [address], 01/12/2020 09:07:06 01/12/2001/12/2020 CBC w/ auto diff MCHC 34 g/dL 32-36 normal Not Available [facility] [address] [place] [address], [address], 01/12/2020 09:07:06 01/12/2001/12/2020 CBC w/ auto diff RDW 14.5 % 11.0-1 5.0 normal Not Available [facility] [address] [place] [address], [address], 01/12/2020 09:07:06 01/12/20 20 01/12/2020 CBC w/ auto diff MPV 7.5 fL 6.2-10 .5 normal Not Available [facility] [address] [place] [address], [address], 01/12/2020 09:07:06 01/12/20 20 01/12/2020 CBC w/ auto diff platelet count 268 K/uL 130-40 0 normal Not Available [facility] [address] [place] [address], [address], 01/12/2020 09:07:06 01/12/20 20 01/12/2020 CBC w/ auto diff neutrophil,a bsolute 2.3 K/uL 1.6-8. 4 normal Not Available [facility] [address] [place] [address], [address], 01/12/2020 09:07:06 01/12/20 20 01/12/2020 CBC w/ auto diff lymphocyte,a bsolute 2.1 K/uL 0.4-5. 1 normal Not Available [facility] [address] [place] [address], [address], 01/12/2020 09:07:06 01/12/20 20 01/12/2020 CBC w/ auto diff monocyte,abs olute 0.4 K/uL 0.0-1. 2 normal Not Available [facility] [address] [place] [address], [address], 01/12/2020 09:07:06 01/12/20 20 01/12/2020 CBC w/ auto diff eosinophil,a bsolute 0.2 K/uL 0.0-0. 8 normal Not Available [facility] [address] [place] [address], [address], 01/12/2020 09:07:06 01/12/20 20 01/12/2020 CBC w/ auto diff basophil,abs olute 0.1 K/uL 0.0-0. 3 normal Not Available [facility] [address] [place] [address], [address], 01/12/2020 09:07:06 01/12/20 20 01/12/2020 CBC w/ auto diff % neutrophils 44.0 % 42.0-7 8.0 normal Not Available [facility] [address] [place] [address], [address], 01/12/2020 09:07:06 01/12/20 20 01/12/2020 CBC w/ auto diff % lymphocytes 41.2 % 11.0-4 7.0 normal Not Available [facility] [address] [place] [address], [address], 01/12/2020 09:07:06 01/12/2001/12/2020 CBC w/ auto diff % monocytes 8.1 % 0.0-11 .0 normal Not Available [facility] [address] [place] [address], [address], 01/12/2020 09:07:06 01/12/20 20 01/12/2020 CBC w/ auto diff % eosinophils 4.3 % 0.0-7. 0 normal Not Available [facility] [address] [place] [address], [address], 01/12/2020 09:07:06 01/12/2001/12/2020 CBC w/ auto diff % basophils 2.4 % 0.0-3. 0 normal Not Available [facility] [address] [place] [address], [address], 01/12/2020 09:07:06 01/12/2001/12/2020 CBC w/ auto diff nucleated red cells 0.0 % 0.0-0. 9 normal Not Available [facility] [address] [place] [address], [address], 01/12/2020 09:07:06 01/12/20 20 01/12/2020 CBC w/ auto diff nucleated RBCs, absolute 0.00 K/uL not estab. normal Not Available [facility] [address] [place] [address], [address], 01/12/2020 09:07:06 01/04/20 22 01/03/2022 LIPID PROFI LE HDL cholesterol 63 mg/dL 50-242 normal Not Available [facility] [address] [place] [address], [address], 01/03/2022 09:58:11 01/04/20 22 01/03/2022 LIPID PROFI LE triglyceride s 162 mg/dL 0-149 high TRIGL YCERI DE RANGE S SUSI L: < 150 BORDE RLINE HIGH: 150 - 199 HIGH: 200 - 499 VERY HIGH: > OR = 500 Not Available [facility] [address] [place] [address], [address], 01/03/2022 09:58:11 01/04/20 22 01/03/2022 LIPID PROFI LE cholesterol 264 mg/dL 0-199 high ELVA STERO L (TOTA L) RANGE S WU ABLE: < 200 BORDE RLINE : 200 - 239 HIGHE R RISK: > 239 Not Available [facility] [address] [place] [address], [address], 01/03/2022 09:58:11 01/04/20 22 01/03/2022 LIPID PROFI LE LDL cholesterol 169 mg/dL _(diaz c) 0-99 high LDL ELVA STERO L RANGE S OPTIM AL: < 100 NEAR/ ABOVE OPTIM AL: 100 - 129 BORDE RLINE HIGH: 130 - 159 HIGH: 160 - 189 VERY HIGH: > OR = 190 Not Available [facility] [address] [place] [address], [address], 01/03/2022 09:58:11 01/04/20 22 01/03/2022 COMP. METAB OLIC PANEL glucose 108 mg/dL 74-100 high Not Available [facility] [address] [place] [address], [address], 01/03/2022 09:58:10 01/04/20 22 01/03/2022 COMP. METAB OLIC PANEL blood urea nitrogen 8 mg/dL 6-20 normal Not Available [facility] [address] [place] [address], [address], 01/03/2022 09:58:10 01/04/20 22 01/03/2022 COMP. METAB OLIC PANEL creatinine 0.91 mg/dL 0.50-0 .95 normal Not Available [facility] [address] [place] [address], [address], 01/03/2022 09:58:10 01/04/20 22 01/03/2022 COMP. METAB OLIC PANEL BUN/creatini ne ratio 9 (calc ) 10-20 low Not Available [facility] [address] [place] [address], [address], 01/03/2022 09:58:10 01/04/20 22 01/03/2022 COMP. METAB OLIC PANEL sodium 139 mmol/ L 136-14 5 normal Not Available [facility] [address] [place] [address], [address], 01/03/2022 09:58:10 01/04/20 22 01/03/2022 COMP. METAB OLIC PANEL potassium 4.5 mmol/ L 3.4-5. 0 normal Not Available [facility] [address] [place] [address], [address], 01/03/2022 09:58:10 01/04/20 22 01/03/2022 COMP. METAB OLIC PANEL chloride 100 mmol/ L 98-107 normal Not Available [facility] [address] [place] [address], [address], 01/03/2022 09:58:10 01/04/20 22 01/03/2022 COMP. METAB OLIC PANEL carbon dioxide 28 mmol/ L 22-31 normal Not Available [facility] [address] [place] [address], [address], 01/03/2022 09:58:10 01/04/20 22 01/03/2022 COMP. METAB OLIC PANEL anion gap 11 (calc ) 7-25 normal Not Available [facility] [address] [place] [address], [address], 01/03/2022 09:58:10 01/04/20 22 01/03/2022 COMP. METAB OLIC PANEL calcium 9.8 mg/dL 8.6-10 .2 normal Not Available [facility] [address] [place] [address], [address], 01/03/2022 09:58:10 01/04/20 22 01/03/2022 COMP. METAB OLIC PANEL total protein 7.9 g/dL 6.4-8. 3 normal Not Available [facility] [address] [place] [address], [address], 01/03/2022 09:58:10 01/04/20 22 01/03/2022 COMP. METAB OLIC PANEL albumin 4.4 g/dL 3.5-5. 2 normal Not Available [facility] [address] [place] [address], [address], 01/03/2022 09:58:10 01/04/20 22 01/03/2022 COMP. METAB OLIC PANEL globulin 3.5 g/dL_ (calc ) 1.5-4. 5 normal Not Available [facility] [address] [place] [address], [address], 01/03/2022 09:58:10 01/04/20 22 01/03/2022 COMP. METAB OLIC PANEL albumin/glob ulin ratio 1.3 (calc ) 1.1-2. 5 normal Not Available [facility] [address] [place] [address], [address], 01/03/2022 09:58:10 01/04/20 22 01/03/2022 COMP. METAB OLIC PANEL bilirubin, total 0.5 mg/dL 0.1-1. 2 normal Not Available [facility] [address] [place], [address], 01/03/2022 09:58:10 01/04/20 22 01/03/2022 COMP. METAB OLIC PANEL alkaline phosphatase 73 U/L 30-121 normal Not Available [facility] [address] [place], [address], 01/03/2022 09:58:10 01/04/20 22 01/03/2022 COMP. METAB OLIC PANEL AST 25 U/L 0-32 normal Not Available [facility] [address] [place], [address], 01/03/2022 09:58:10 01/04/20 22 01/03/2022 COMP. METAB OLIC PANEL ALT 17 U/L 0-33 normal Not Available [facility] [address] [place], [address], 01/03/2022 09:58:10 01/04/20 22 01/03/2022 COMP. METAB OLIC PANEL GFR 73 >= 60 normal NOT E New calcu latio n for GFR (CKD- EPI 2020) is formu lated witho ut race adjus tment facto rs at the recom menda tion of the [facility] and [facility] . This calcu latio n has not been valid ated in pregn ant women . For pedia tric patie nts refer to https ://leona abrams.britta loja.o rg/pr jamila burden s/KDO QI/gf r_cal culat orPed Not Available [facility] [address] [place], [address], 01/03/2022 09:58:10 01/04/20 22 01/03/2022 COMPL ETE BLOOD COUNT white blood cells 6.9 K/uL 3.8-10 .8 normal Not Available [facility] [address] [place], [address], 01/03/2022 09:22:33 01/04/20 22 01/03/2022 COMPL ETE BLOOD COUNT red blood cells 4.85 M/uL 3.80-5 .20 normal Not Available [facility] [address] [place] [address], [address], 01/03/2022 09:22:33 01/04/20 22 01/03/2022 COMPL ETE BLOOD COUNT hemoglobin 13.6 g/dL 12.0-1 6.0 normal Not Available [facility] [address] [place] [address], [address], 01/03/2022 09:22:33 01/04/20 22 01/03/2022 COMPL ETE BLOOD COUNT hematocrit 40.8 % 35.0-4 7.0 normal Not Available [facility] [address] [place] [address], [address], 01/03/2022 09:22:33 01/04/20 22 01/03/2022 COMPL ETE BLOOD COUNT MCV 84 fL 80-100 normal Not Available [facility] [address] [place] [address], [address], 01/03/2022 09:22:33 01/04/20 22 01/03/2022 COMPL ETE BLOOD COUNT MCH 28 pg 26-35 normal Not Available [facility] [address] [place] [address], [address], 01/03/2022 09:22:33 01/04/2001/03/2022 COMPL ETE BLOOD COUNT MCHC 33 g/dL 32-36 normal Not Available [facility] [address] [place] [address], [address], 01/03/2022 09:22:33 01/04/20 22 01/03/2022 COMPL ETE BLOOD COUNT RDW 15.1 % 11.0-1 5.0 high Not Available [facility] [address] [place] [address], [address], 01/03/2022 09:22:33 01/04/20 22 01/03/2022 COMPL ETE BLOOD COUNT MPV 7.1 fL 6.2-10 .5 normal Not Available [facility] [address] [place] [address], [address], 01/03/2022 09:22:33 01/04/20 22 01/03/2022 COMPL ETE BLOOD COUNT platelet count 328 K/uL 130-40 0 normal Not Available [facility] [address] [place] [address], [address], 01/03/2022 09:22:33 01/04/20 22 01/03/2022 COMPL ETE BLOOD COUNT neutrophil,a bsolute 2.9 K/uL 1.6-8. 4 normal Not Available [facility] [address] [place] [address], [address], 01/03/2022 09:22:33 01/04/20 22 01/03/2022 COMPL ETE BLOOD COUNT lymphocyte,a bsolute 3.0 K/uL 0.4-5. 1 normal Not Available [facility] [address] [place] [address], [address], 01/03/2022 09:22:33 01/04/20 22 01/03/2022 COMPL ETE BLOOD COUNT monocyte,abs olute 0.7 K/uL 0.0-1. 2 normal Not Available [facility] [address] [place] [address], [address], 01/03/2022 09:22:33 01/04/20 22 01/03/2022 COMPL ETE BLOOD COUNT eosinophil,a bsolute 0.2 K/uL 0.0-0. 8 normal Not Available [facility] [address] [place] [address], [address], 01/03/2022 09:22:33 01/04/20 22 01/03/2022 COMPL ETE BLOOD COUNT basophil,abs olute 0.1 K/uL 0.0-0. 3 normal Not Available [facility] [address] [place] [address], [address], 01/03/2022 09:22:33 01/04/2001/03/2022 COMPL ETE BLOOD COUNT % neutrophils 42.0 % 42.0-7 8.0 normal Not Available [facility] [address] [place] [address], [address], 01/03/2022 09:22:33 01/04/20 22 01/03/2022 COMPL ETE BLOOD COUNT % lymphocytes 42.8 % 11.0-4 7.0 normal Not Available [facility] [address] [place] [address], [address], 01/03/2022 09:22:33 01/04/20 22 01/03/2022 COMPL ETE BLOOD COUNT % monocytes 10.6 % 0.0-11 .0 normal Not Available [facility] [address] [place] [address], [address], 01/03/2022 09:22:33 01/04/2001/03/2022 COMPL ETE BLOOD COUNT % eosinophils 3.5 % 0.0-7. 0 normal Not Available [facility] [address] [place] [address], [address], 01/03/2022 09:22:33 01/04/2001/03/2022 COMPL ETE BLOOD COUNT % basophils 1.1 % 0.0-3. 0 normal Not Available [facility] [address] [place] [address], [address], 01/03/2022 09:22:33 01/04/2001/03/2022 COMPL ETE BLOOD COUNT nucleated red cells 0.0 % 0.0-0. 9 normal Not Available [facility] [address] [place] [address], [address], 01/03/2022 09:22:33 09/01/03/2022 COMPL ETE BLOOD COUNT nucleated RBCs, absolute 0.00 K/uL not estab. normal Not Available [facility] [address] [place], [address], 01/03/2022 09:22:33 05/09/19 18 05/07/2017 MAMMO , scree mary beth, tomos ynthe sis, bilat eral, w/ CAD No observ ation record ed. [facility] Not Available 2017 17:58:15 05/13/19 19 05/11/2018 MAMMO , scree mary beth, tomos ynthe sis, bilat eral, w/ CAD No observ ation record ed. [facility] [address] [place] [address], [id number], 05/13/2018 14:48:29 02/13/20 19 02/11/2019 audio gram No observ ation record ed. [facility] Not Available 2018 09:39:21 Result Notes None recorded. 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 Procedures Surgical History Date Name Laterality Status Provider Name and Address Organization Details Recorded Time 02/12/20 19 Tympanogram completed SHELBY DANIELS [address] [place], [address], [facility] 02/11/2019 14:55:15 02/12/20 19 Audiogram completed ALEJO PRICE AUD [address] [place], [address], [facility] 02/11/2019 14:55:13 Appendectomy completed Reji Bailey [facility] 01/01/2017 10:01:29 Cholecystectomy completed Reji Vizuete-Ort [facility] 01/01/2017 10:01:43 Partial hysterectomy completed Reji Vizuete-Ort [facility] 01/01/2017 10:01:54 ligation of fallopian tube completed Sanjuanita [facility] 02/11/2019 13:57:51 Cholecystectomy completed Sanjuanita [facility] 02/11/2019 13:58:07 colonoscopy completed Sanjuanita [facility] 02/11/2019 13:58:31 procedure on neck completed Sanjuanita [facility] 02/11/2019 13:58:49 Imaging Results Imaging Date Name Status LastModified by Organiz ation Details LastModified Time 05/07/2017 MAMMO, screening, tomosynthesis, bilateral, w/ CAD completed [facility] Information not available 01/11/2018 17:58:15 05/11/2018 MAMMO, screening, tomosynthesis, bilateral, w/ CAD completed [facility] [address] [place] [address], [id number], 05/13/2018 14:48:29 02/11/2019 audiogram completed [facility] Information no t available 02/12/2019 09:39:21 Procedure Notes None recorded. Medical Equipment None Reported. Allergies Allergen ID Allergen Name Allergen Category Reaction Reaction Severity Criticality Documentation Date Start Date Code Code System Note Provider Name and Address Organization Details Recorded Time 179871 hydrocodo ne bitartrat e medicatio n Not available Not available Not available 03/14/20162006 87872 9 RxNorm Comme nt: Creat ed By: Rodrigo Jarrett ie;Cr eated Date: 007 10:03 :41 AM; Not Available [facility] 6 10:54:39 349331 Prilosec medicatio n Not available Not available Not available 03/15/20162015 27421 5 RxNorm Comme nt: Creat ed By: Constance on Madina ;Crea arturo Date: 2015 10:06 :30 AM; Not Available [facility] 6 03:55:25 [id number] Xarelto medicatio n Not available Not available Not available 03/15/20162015 59497 99 RxNorm Comme nt: Creat ed By: Constance ysabel morris Date: 2015 10:05 :15 AM; Not Available [facility] 6 07:45:15 [id number] Calan medicatio n Not available Not available Not available 03/15/20162006 89164 0 RxNorm Comme nt: Creat ed By: Rodrigo massey;Andres eated Date: 007 10:04 :01 AM; Not Available [facility] 6 08:39:26 Medications Name Sig Start Date Stop Date Status Note LastModified by Organization Details LastModified Time Toprol XL 100 mg tablet,ext ended release Daily active Frequency: daily;Medi cation Descriptio n: metoprolol succinate; Dosage:1; Route:oral ; refills:0 Not Available Not Available Not Available [employer] 10 mg disintegra ting tablet Take 1 [...] Updated DateTime 7 165.1 cm 45.7 kg/m2 202765. 18 g 97.5 [degF] 66 /min 131 mm[Hg] 86 mm[Hg] Reji BarreraO rtiz [facility] 7 10:05:00 Date Recorded Pain severity - 0-10 verbal numeric rating [Score] - Reported Provider Name and Address Organization Details Last Updated DateTime 01/01/2017 0 Not Available [facility] 8 10:32:16 Date Recorded Body height Body mass index (BMI) Body weight Body temperature Heart rate Heart rate Systolic blood pressure Diastolic blood pressure Systolic blood pressure Diastolic blood pressure Provider Name and Address Organization Details Last Updated DateTime 8 165.1 cm 47 kg/m2 134278. 84 g 97.5 [degF] 65 /min 65 /min 136 mm[Hg] 102 mm[Hg] 121 mm[Hg] 70 mm[Hg] Luis Enrique Valle [facility] 8 09:27:26 Date Recorded Body weight Body mass index (BMI) Body height Body temperature Heart rate Systolic blood pressure Diastolic blood pressure Provider Name and Address Organization Details Last Updated DateTime 9 559506. 9 g 45.8 kg/m2 165.1 cm 96.5 [degF] 83 /min 142 mm[Hg] 87 mm[Hg] Sanjuanita Wallace [facility] 9 14:22:22 Social History Question Answer Notes LastModified by Organizat ion Details LastModified Time Tobacco Smoking Status [facility]/01/2017 10:02:11 What Is Your Level Of Alcohol Consumption? None [email or web address] Information not available 01/01/2017 Live Alone Or With Others? With Others [email or web address] Information not available 01/01/2017 Marital Status [email or web address] Informatio n not available 01/01/2017 What Was The Date Of Your Most Recent Tobacco Screening? 01/07/2018 Information not available 06/08/2019 Has Tobacco Cessation Counseling Been Provided? No [email or web address] Information not available 01/01/2017 Sex: Female Functional Status None recorded. Mental Status None recorded. Family History Relationship Description Onset Age of this Age Resolved Age Notes LastModified by Organization Details LastModified Time Mother Diabetes mellitus [email or web address] Not available 2016 09:59:31 Mother Family history of malignant neoplasm [email or web address] Not available 2016 09:59:47 Mother Heart disease [email or web address] Not available 2016 10:00:30 Mother Hyperlipidem ia [email or web address] Not available 2016 10:00:43 Mother Hypertensive disorder [email or web address] Not available 2016 10:00:58 Mother Asthma [email or web address] Not available 02/11/2019 13:56:11 Maternal Grandfather Family history of malignant neoplasm [email or web address] Not available 2016 09:59:47 Maternal Grandmother Family history of stroke [email or web address] Not available 2016 10:00:05 Father Heart disease [email or web address] Not available 2016 10:00:30 Sister Hypertensive disorder [email or web address] Not available 2016 10:00:58 Sister Disorder of thyroid gland [email or web address] Not available 02/11 13:55:10 Medical History Condition Response Cancer Y Blood Transfusion Y Gynecological HistoryNo gynecological history recorded. Obstetrics History GPAL:G 0 P 0 0 0 0 Past Encounters Encounter ID Performer Location Encounter Start Date Encounter Closed Date Diagnosis/Indication Diagnosis SNOMED-CT Code Diagnosis ICD10 Code Diagnosis Note [id number] SUSANNAH BALLARD MD [facility] [address],[facility] [address] [place] [address] 01/01/2017 09:05:16 01/01/2017 11:50:36 Blood coagulation disorder 44169268 D68.59 History of non-Hodgkins lymphoma 103339615 Z85.72 [id number] SUSANNAH BALLARD MD [facility] [address],[facility] [address] [place] [address] 01/07/2018 08:49:47 01/07/2018 10:46:01 Non-Hodgkin's lymphoma (clinical) 175048470 C85.80 E78.5 Blood coag ulation disorder 38139856 D68.59 Morbid obesity 650039861 E66.01 [id number] SUSANNAH BALLARD MD H[facility] [address] [place] [address] 01/11/2019 08:55:10 01/11/2019 11:07:29 [id number] MILKA WALKER MD [place] [facility] [address] [place] [address] 02/11/2019 13:30:03 02/11/2019 15:57:14 Dysfunction of bilateral eustachian tubes 1932704152 146686 H69.93 Dizziness 697007408 R42 Nausea 492369795 R11.0 Migraine with aura 49134 06 G43.109 -hx Migraine 64382074 G43.90 9 vestibular [id number] SHELBY DANIELS [place] [facility] [address] [place] [address] 02/11/2019 14:39:21 02/11/2019 15:44:54 Dysfunction of bilateral eustachian tubes 2942043583 393499 H69.93 [id number] SUSANNAH BALLARD MD H[facility] [address] [place] [address] 01/12/2020 09:03:57 01/12/2020 11:16:40 [id number] SUSANNAH BALLARD MD H[facility] [address] [place] [address] 01/10/2021 09:05:14 01/10/2021 12:50:40 [id number] SUSANNAH BALLARD MD H[facility] [address] [place] [address] 01/03/2022 09:08:05 01/03/2022 11:54:52 Health Concerns Section Related Observation LastModified by Organization Detai ls LastModified Time None Recorded Concern Status LastModified by Organization Details LastModified Time None Recorded Advance Directives Directive None Recorded Payers Encounter Date Sequence Insurance Name Policy Number Policy Lynn Covered Member ID Lynn Member ID Guarantor Name 01/01/2017 [place] [id number] Oskar Odell [id number] Jessica Odell 01/07/2018 1 [place] [id number] Oskar Odell [id number] Jessica Odell 02/11/2019 1 [place] [id number] Oskar Odell [id number] Jessica Odell 02/11/2019 1 [place] [id number] Oskar Odell [id number] Jessica Odell Notes Date Note Type Note Provider Name and Address Organization Details Recorded Time 01/01/2017 text/html Ms. 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 She had 8 cycles of ProMACE-CytaBom chemotherapy, followed by thoracic radiation. Other medical history is significant for anti-thrombin III deficiency, DVT and PE in 2013, continuing on Coumadin, hysterectomy with incidental appendectomy in 1997, arthritis and obesity. SUSANNAH BALLARD MD [address] [place] [address], [phone], [facility] 02/16/2017 21:48:36 01/07/2018 text/html Ms. 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 She had 8 cycles of ProMACE-CytaBom chemotherapy, followed by thoracic radiation. Other medical history is significant for anti-thrombin III deficiency, DVT and PE in 2013, continuing on Coumadin, hysterectomy with incidental appendectomy in 1997, arthritis and obesity. SUSANNAH BALLARD MD [address] [place] [address], [phone], [facility] 01/11/2018 18:00:27 02/11/2019 text/html Jessica [...] helped. Jessica is sensitive to certain scents. IMLKA WALKER MD [address] [place], [address], [facility] 02/11/2019 18:17:57 OBGyn Episode No OBEpisode recorded.
[2024-08-10 09:27] LABS: INR 1.89 (0.9-1.1); Prothrombin Time 19.9 seconds (10.1-12.5)
== END 2024-08-10 14:09 ==
PROVIDERS: PCP Internal Medicine; Visit Provider Internal Medicine
DX: Z79.01 Long term (current) use of anticoagulants (principal); Z86.718 Personal history of other venous thrombosis and embolism
CPT/HCPCS: 36415; 85610; 99211; G0463

== ENCOUNTER 2024-08-13 08:57 | Outpatient (CLI) | payer OTHER, SELFPAY ==
[2024-08-13 09:26] LABS: PHA INR Fingerstick 2.6 (0.9-1.1)
== END 2024-08-13 09:30 ==
LOC: ACC 08:58
PROVIDERS: PCP Internal Medicine; Visit Provider Internal Medicine
DX: Z79.01 Long term (current) use of anticoagulants (principal); Z86.718 Personal history of other venous thrombosis and embolism
CPT/HCPCS: 85610; 99211; G0463

== ENCOUNTER 2024-08-16 15:56 | Outpatient (CLI) | payer OTHER, SELFPAY ==
[2024-08-16 16:43] LABS: Basophils % 0.6 % (0.1-2.0); Eosinophils # 0.1 Kmm3 (0.0-0.4); Eosinophils % 1.9 % (0.1-12.0); Hemoglobin 12.7 g/dL (12.2-16.2); Lymphocytes # 2.5 K/mm3 (0.7-4.5); Lymphocytes % 40.2 % (10-50); Mean Corpuscular HGB Conc 33.4 g/dL (31.8-35.4); Mean Corpuscular Hemoglobin 29.7 pg (27.0-31.2); Mean Corpuscular Volume 88.8 fl (81-99); Monocytes # 0.6 K/mm3 (0.1-1.0); Neutrophils # 2.9 K/mm3 (1.8-7.8); Neutrophils % 47.1 % (37.0-80.0); Nucleated Red Blood Cells # 0 10^3/uL; Nucleated Red Blood Cells % 0 %; Platelet Count 304 K/mm3 (142-424); Red Blood Count 4.28 M/mm3 (4.20-5.40); Red Cell Distribution Width 13.2 % (11.5-17.5); Red Cell Distribution Width-SD 43.3 fL; White Blood Count 6.2 K/mm3 (4.8-10.8)
== END 2024-08-16 23:59 | disposition home or self-care (01) ==
LOC: LAB 15:57
PROVIDERS: PCP Internal Medicine; Visit Provider Internal Medicine
DX: D68.59 Other primary thrombophilia (principal); S30.1XXA Contusion of abdominal wall, initial encounter
CPT/HCPCS: 36415; 85025

== ENCOUNTER 2024-08-27 09:22 | Outpatient (CLI) | payer OTHER, SELFPAY ==
--- OUTSIDE RECORDS SUMMARY | 2024-08-27 09:24 | XMS_ITS | Data Portability ---
Author Organization [facility] Address [address] [place] [address] Care Team Providers Care Client Technologies Specialist Name Role Phone JEAN CRUZ Hematology/Oncology STEPHANIE PEÑA Primary Care Provider Assessment Encounter Date [...] of cardiovascular disease was calculated using the [place] calculator, to be just over 8%, too [...] be set up for a CT at [facility] to evaluate for diverticulitis. Her total cholesterol and LDL are somewhat high; her 10 year risk of cardiovascular disease was calculated, using the [place] calculator, to be 6.6%, not high enough [...] By Organization Details Last Modified Time 01/11/2019 [id number] body mass index: care instructions Not available 01/17/2019 19:01:07 Body Mass Index: Care Instructions-LC Not available 01/17/2019 19:01:07 learning about healthy weight Not available 01/17/2019 19:01:07 01/10/2021 [id number] Body Mass Index: Care Instructions-LC Not available 01/14/2021 09:09:46 01/03/2022 [id number] Body Mass Index: Care Instructions-LC Not available 01/05/2022 20:02:41 Reason for Referral None Reported. Results Created Date Observation Date Name Description Value Unit Range Abnormal Flag Note LastModifiedBy Organization Detail LastModifiedTime 01/12/2001/11/2019 CBC w/ auto diff white blood cells 5.9 K/uL 3.8-10 .8 normal Not Available [facility] [address] [place], [address], 01/11/2019 09:02:43 01/12/2001/11/2019 CBC w/ auto diff red blood cells 4.35 M/uL 3.80-5 .20 normal Not Available [facility] [address] [place], [address], 01/11/2019 09:02:43 01/12/2001/1101/11/2019 CBC w/ auto diff hemoglobin 12.7 g/dL 12.0-1 6.0 normal Not Available [facility] [address] [place] [address], [address], 01/11/2019 09:02:43 01/12/20 19 01/11/2019 CBC w/ auto diff hematocrit 37.6 % 35.0-4 7.0 normal Not Available [facility] [address] [place] [address], [address], 01/11/2019 09:02:43 01/12/20 19 01/11/2019 CBC w/ auto diff MCV 87 fL 80-100 normal Not Available [facility] [address] [place] [address], [address], 01/11/2019 09:02:43 01/12/2001/11/2019 CBC w/ auto diff MCH 29 pg 26-35 normal Not Available [facility] [address] [place] [address], [address], 01/11/2019 09:02:43 01/12/2001/11/2019 CBC w/ auto diff MCHC 34 g/dL 32-36 normal Not Available [facility] [address] [place] [address], [address], 01/11/2019 09:02:43 01/12/2001/11/2019 CBC w/ auto diff RDW 14.5 % 11.0-1 5.0 normal Not Available [facility] [address] [place] [address], [address], 01/11/2019 09:02:43 01/12/2001/11/2019 CBC w/ auto diff MPV 7.3 fL 6.2-10 .5 normal Not Available [facility] [address] [place] [address], [address], 01/11/2019 09:02:43 01/12/2001/11/2019 CBC w/ auto diff platelet count 250 K/uL 130-40 0 normal Not Available [facility] [address] [place] [address], [address], 01/11/2019 09:02:43 01/12/2001/11/2019 CBC w/ auto diff neutrophil,a bsolute 2.4 K/uL 1.6-8. 4 normal Not Available [facility] [address] [place] [address], [address], 01/11/2019 09:02:43 01/12/2001/11/2019 CBC w/ auto diff lymphocyte,a bsolute 2.8 K/uL 0.4-5. 1 normal Not Available [facility] [address] [place] [address], [address], 01/11/2019 09:02:43 01/12/2001/11/2019 CBC w/ auto diff monocyte,abs olute 0.5 K/uL 0.0-1. 2 normal Not Available [facility] [address] [place] [address], [address], 01/11/2019 09:02:43 01/12/2001/11/2019 CBC w/ auto diff eosinophil,a bsolute 0.2 K/uL 0.0-0. 8 normal Not Available [facility] [address] [place] [address], [address], 01/11/2019 09:02:43 01/12/2001/11/2019 CBC w/ auto diff basophil,abs olute 0.1 K/uL 0.0-0. 3 normal Not Available [facility] [address] [place] [address], [address], 01/11/2019 09:02:43 01/12/2001/11/2019 CBC w/ auto diff % neutrophils 40.6 % 42.0-7 8.0 low Not Available [facility] [address] [place] [address], [address], 01/11/2019 09:02:43 01/12/2001/11/2019 CBC w/ auto diff % lymphocytes 46.9 % 11.0-4 7.0 normal Not Available [facility] [address] [place] [address], [address], 01/11/2019 09:02:43 01/12/2001/11/2019 CBC w/ auto diff % monocytes 8.2 % 0.0-11 .0 normal Not Available [facility] [address] [place] [address], [address], 01/11/2019 09:02:43 01/12/2001/11/2019 CBC w/ auto diff % eosinophils 3.4 % 0.0-7. 0 normal Not Available [facility] [address] [place] [address], [address], 01/11/2019 09:02:43 01/12/2001/11/2019 CBC w/ auto diff % basophils 0.9 % 0.0-3. 0 normal Not Available [facility] [address] [place] [address], [address], 01/11/2019 09:02:43 01/12/2001/11/2019 CBC w/ auto diff nucleated red cells 0.1 % 0.0-0. 9 normal Not Available [facility] [address] [place] [address], [address], 01/11/2019 09:02:43 01/12/2001/11/2019 CBC w/ auto diff nucleated RBCs, absolute 0.01 K/uL not estab. normal Not Available [facility] [address] [place] [address], [address], 01/11/2019 09:02:43 01/12/2001/11/2019 CMP, serum or plasm a glucose 108 mg/dL 74-100 high Not Available [facility] [address] [place] [address], [address], 01/11/2019 09:17:19 01/12/2001/11/2019 CMP, serum or plasm a blood urea nitrogen 10 mg/dL 6-20 normal Not Available [facility] [address] [place] [address], [address], 01/11/2019 09:17:19 01/12/2001/11/2019 CMP, serum or plasm a creatinine 0.92 mg/dL 0.50-0 .95 normal Not Available [facility] [address] [place] [address], [address], 01/11/2019 09:17:19 01/12/2001/11/2019 CMP, serum or plasm a BUN/creatini ne ratio 11 (calc ) 10-20 normal Not Available [facility] [address] [place] [address], [address], 01/11/2019 09:17:19 01/12/2001/11/2019 CMP, serum or plasm a sodium 139 mmol/ L 136-14 5 normal Not Available [facility] [address] [place] [address], [address], 01/11/2019 09:17:19 01/12/2001/11/2019 CMP, serum or plasm a potassium 4.2 mmol/ L 3.4-5. 0 normal Not Available [facility] [address] [place] [address], [address], 01/11/2019 09:17:19 01/12/2001/11/2019 CMP, serum or plasm a chloride 101 mmol/ L 98-107 normal Not Available [facility] [address] [place] [address], [address], 01/11/2019 09:17:19 01/12/2001/11/2019 CMP, serum or plasm a carbon dioxide 24 mmol/ L 20-32 normal Not Available [facility] [address] [place] [address], [address], 01/11/2019 09:17:19 01/12/2001/11/2019 CMP, serum or plasm a anion gap 14 (calc ) 7-25 normal Not Available [facility] [address] [place] [address], [address], 01/11/2019 09:17:19 01/12/2001/11/2019 CMP, serum or plasm a calcium 9.0 mg/dL 8.6-10 .2 normal Not Available [facility] [address] [place] [address], [address], 01/11/2019 09:17:19 01/12/2001/11/2019 CMP, serum or plasm a total protein 6.8 g/dL 6.4-8. 3 normal Not Available [facility] [address] [place] [address], [address], 01/11/2019 09:17:19 01/12/2001/11/2019 CMP, serum or plasm a albumin 3.9 g/dL 3.5-5. 2 normal Not Available [facility] [address] [place] [address], [address], 01/11/2019 09:17:19 01/12/2001/11/2019 CMP, serum or plasm a globulin 2.9 g/dL_ (calc ) 1.5-4. 5 normal Not Available [facility] [address] [place] [address], [address], 01/11/2019 09:17:19 01/12/2001/11/2019 CMP, serum or plasm a albumin/glob ulin ratio 1.3 (calc ) 1.1-2. 5 normal Not Available [facility] [address] [place] [address], [address], 01/11/2019 09:17:19 01/12/2001/11/2019 CMP, serum or plasm a bilirubin, total 0.4 mg/dL 0.1-1. 2 normal Not Available [facility] [address] [place] [address], [address], 01/11/2019 09:17:19 01/12/2001/11/2019 CMP, serum or plasm a alkaline phosphatase 55 U/L 35-105 normal Not Available [facility] [address] [place], [address], 01/11/2019 09:17:19 01/12/2001/11/2019 CMP, serum or plasm a AST 16 U/L 0-32 normal Not Available [facility] [address] [place] [address], [address], 01/11/2019 09:17:19 01/12/2001/11/2019 CMP, serum or plasm a ALT 12 U/L 0-33 normal Not Available [facility] [address] [place] [address], [address], 01/11/2019 09:17:19 01/12/2001/11/2019 CMP, serum or plasm a GFR 81 >= 60 normal Not Available [facility] [address] [place], [address], 01/11/2019 09:17:19 01/12/2001/11/2019 CMP, serum or plasm [...] month s or longe r. Not Available [facility] [address] [place], [address], 01/11/2019 09:17:19 01/12/2001/12/2020 CBC w/ auto diff white blood cells 5.1 K/uL 3.8-10 .8 normal Not Available [facility] [address] [place] [address], [address], 01/12/2020 09:07:06 01/12/20 20 01/12/2020 CBC w/ auto diff red blood cells 4.59 M/uL 3.80-5 .20 normal Not Available [facility] [address] [place] [address], [address], 01/12/2020 09:07:06 01/12/20 20 01/12/2020 CBC w/ auto diff hemoglobin 13.3 g/dL 12.0-1 6.0 normal Not Available [facility] [address] [place] [address], [address], 01/12/2020 09:07:06 01/12/20 20 01/12/2020 CBC w/ auto diff hematocrit 39.6 % 35.0-4 7.0 normal Not Available [facility] [address] [place] [address], [address], 01/12/2020 09:07:06 01/12/2001/12/2020 CBC w/ auto diff MCV 86 fL 80-100 normal Not Available [facility] [address] [place] [address], [address], 01/12/2020 09:07:06 01/12/2001/12/2020 CBC w/ auto diff MCH 29 pg 26-35 normal Not Available [facility] [address] [place] [address], [address], 01/12/2020 09:07:06 01/12/20 20 01/12/2020 CBC w/ auto diff MCHC 34 g/dL 32-36 normal Not Available [facility] [address] [place] [address], [address], 01/12/2020 09:07:06 01/12/20 20 01/12/2020 CBC w/ auto diff RDW 14.5 % 11.0-1 5.0 normal Not Available [facility] [address] [place] [address], [address], 01/12/2020 09:07:06 01/12/20 20 01/12/2020 CBC w/ auto diff MPV 7.5 fL 6.2-10 .5 normal Not Available [facility] [address] [place] [address], [address], 01/12/2020 09:07:06 01/12/20 20 01/12/2020 CBC w/ auto diff platelet count 268 K/uL 130-40 0 normal Not Available [facility] [address] [place] [address], [address], 01/12/2020 09:07:06 01/12/20 20 01/12/2020 CBC w/ auto diff neutrophil,a bsolute 2.3 K/uL 1.6-8. 4 normal Not Available [facility] [address] [place] [address], [address], 01/12/2020 09:07:06 01/12/20 20 01/12/2020 CBC w/ auto diff lymphocyte,a bsolute 2.1 K/uL 0.4-5. 1 normal Not Available [facility] [address] [place] [address], [address], 01/12/2020 09:07:06 01/12/20 20 01/12/2020 CBC w/ auto diff monocyte,abs olute 0.4 K/uL 0.0-1. 2 normal Not Available [facility] [address] [place] [address], [address], 01/12/2020 09:07:06 01/12/20 20 01/12/2020 CBC w/ auto diff eosinophil,a bsolute 0.2 K/uL 0.0-0. 8 normal Not Available [facility] [address] [place] [address], [address], 01/12/2020 09:07:06 01/12/20 20 01/12/2020 CBC w/ auto diff basophil,abs olute 0.1 K/uL 0.0-0. 3 normal Not Available [facility] [address] [place] [address], [address], 01/12/2020 09:07:06 01/12/20 20 01/12/2020 CBC w/ auto diff % neutrophils 44.0 % 42.0-7 8.0 normal Not Available [facility] [address] [place] [address], [address], 01/12/2020 09:07:06 01/12/2001/12/2020 CBC w/ auto diff % lymphocytes 41.2 % 11.0-4 7.0 normal Not Available [facility] [address] [place] [address], [address], 01/12/2020 09:07:06 01/12/2001/12/2020 CBC w/ auto diff % monocytes 8.1 % 0.0-11 .0 normal Not Available [facility] [address] [place] [address], [address], 01/12/2020 09:07:06 01/12/2001/12/2020 CBC w/ auto diff % eosinophils 4.3 % 0.0-7. 0 normal Not Available [facility] [address] [place] [address], [address], 01/12/2020 09:07:06 01/12/20 20 01/12/2020 CBC w/ auto diff % basophils 2.4 % 0.0-3. 0 normal Not Available [facility] [address] [place] [address], [address], 01/12/2020 09:07:06 01/12/2001/12/2020 CBC w/ auto diff nucleated red cells 0.0 % 0.0-0. 9 normal Not Available [facility] [address] [place] [address], [address], 01/12/2020 09:07:06 01/12/2001/12/2020 CBC w/ auto diff nucleated RBCs, absolute 0.00 K/uL not estab. normal Not Available [facility] [address] [place] [address], [address], 01/12/2020 09:07:06 01/12/20 20 01/12/2020 CMP, serum or plasm a glucose 105 mg/dL 74-100 high Not Available [facility] [address] [place] [address], [address], 01/12/2020 09:32:21 01/12/20 20 01/12/2020 CMP, serum or plasm a blood urea nitrogen 8 mg/dL 6-20 normal Not Available [facility] [address] [place] [address], [address], 01/12/2020 09:32:21 01/12/20 20 01/12/2020 CMP, serum or plasm a creatinine 0.86 mg/dL 0.50-0 .95 normal Not Available [facility] [address] [place] [address], [address], 01/12/2020 09:32:21 01/12/20 20 01/12/2020 CMP, serum or plasm a BUN/creatini ne ratio 9 (calc ) 10-20 low Not Available [facility] [address] [place] [address], [address], 01/12/2020 09:32:21 01/12/20 20 01/12/2020 CMP, serum or plasm a sodium 139 mmol/ L 136-14 5 normal Not Available [facility] [address] [place] [address], [address], 01/12/2020 09:32:21 01/12/20 20 01/12/2020 CMP, serum or plasm a potassium 4.2 mmol/ L 3.4-5. 0 normal Not Available [facility] [address] [place] [address], [address], 01/12/2020 09:32:21 01/12/20 20 01/12/2020 CMP, serum or plasm a chloride 103 mmol/ L 98-107 normal Not Available [facility] [address] [place] [address], [address], 01/12/2020 09:32:21 01/12/20 20 01/12/2020 CMP, serum or plasm a carbon dioxide 28 mmol/ L 20-32 normal Not Available [facility] [address] [place] [address], [address], 01/12/2020 09:32:21 01/12/20 20 01/12/2020 CMP, serum or plasm a anion gap 8 (calc ) 7-25 normal Not Available [facility] [address] [place] [address], [address], 01/12/2020 09:32:21 01/12/2001/12/2020 CMP, serum or plasm a calcium 9.1 mg/dL 8.6-10 .2 normal Not Available [facility] [address] [place] [address], [address], 01/12/2020 09:32:21 01/12/2001/12/2020 CMP, serum or plasm a total protein 6.7 g/dL 6.4-8. 3 normal Not Available [facility] [address] [place] [address], [address], 01/12/2020 09:32:21 01/12/2001/12/2020 CMP, serum or plasm a albumin 4.1 g/dL 3.5-5. 2 normal Not Available [facility] [address] [place] [address], [address], 01/12/2020 09:32:21 01/12/2001/12/2020 CMP, serum or plasm a globulin 2.6 g/dL_ (calc ) 1.5-4. 5 normal Not Available [facility] [address] [place] [address], [address], 01/12/2020 09:32:21 01/12/2001/12/2020 CMP, serum or plasm a albumin/glob ulin ratio 1.6 (calc ) 1.1-2. 5 normal Not Available [facility] [address] [place] [address], [address], 01/12/2020 09:32:21 01/12/20 20 01/12/2020 CMP, serum or plasm a bilirubin, total 0.3 mg/dL 0.1-1. 2 normal Not Available [facility] [address] [place] [address], [address], 01/12/2020 09:32:21 01/12/20 20 01/12/2020 CMP, serum or plasm a alkaline phosphatase 58 U/L 35-105 normal Not Available [facility] [address] [place] [address], [address], 01/12/2020 09:32:21 01/12/20 20 01/12/2020 CMP, serum or plasm a AST 20 U/L 0-32 normal Not Available [facility] [address] [place] [address], [address], 01/12/2020 09:32:21 01/12/2001/12/2020 CMP, serum or plasm a ALT 12 U/L 0-33 normal Not Available [facility] [address] [place] [address], [address], 01/12/2020 09:32:21 01/12/2001/12/2020 CMP, serum or plasm a GFR 87 >= 60 normal Not Available [facility] [address] [place] [address], [address], 01/12/2020 09:32:21 01/12/2001/12/2020 CMP, serum or plasm [...] month s or longe r. Not Available [facility] [address] [place] [address], [address], 01/12/2020 09:32:21 01/04/2001/03/2022 COMPL ETE BLOOD COUNT white blood cells 6.9 K/uL 3.8-10 .8 normal Not Available [facility] [address] [place] [address], [address], 01/03/2022 09:22:33 01/04/20 22 01/03/2022 COMPL ETE BLOOD COUNT red blood cells 4.85 M/uL 3.80-5 .20 normal Not Available [facility] [address] [place] [address], [address], 01/03/2022 09:22:33 01/04/20 22 01/03/2022 COMPL ETE BLOOD COUNT hemoglobin 13.6 g/dL 12.0-1 6.0 normal Not Available [facility] [address] [place] [address], [address], 01/03/2022 09:22:33 01/04/20 22 01/03/2022 COMPL ETE BLOOD COUNT hematocrit 40.8 % 35.0-4 7.0 normal Not Available [facility] [address] [place] [address], [address], 01/03/2022 09:22:33 01/04/20 22 01/03/2022 COMPL ETE BLOOD COUNT MCV 84 fL 80-100 normal Not Available [facility] [address] [place] [address], [address], 01/03/2022 09:22:33 01/04/20 22 01/03/2022 COMPL ETE BLOOD COUNT MCH 28 pg 26-35 normal Not Available [facility] [address] [place] [address], [address], 01/03/2022 09:22:33 01/04/20 22 01/03/2022 COMPL ETE BLOOD COUNT MCHC 33 g/dL 32-36 normal Not Available [facility] [address] [place] [address], [address], 01/03/2022 09:22:33 01/04/20 22 01/03/2022 COMPL ETE BLOOD COUNT RDW 15.1 % 11.0-1 5.0 high Not Available [facility] [address] [place] [address], [address], 01/03/2022 09:22:33 01/04/20 22 01/03/2022 COMPL ETE BLOOD COUNT MPV 7.1 fL 6.2-10 .5 normal Not Available [facility] [address] [place] [address], [address], 01/03/2022 09:22:33 01/04/20 22 01/03/2022 COMPL ETE BLOOD COUNT platelet count 328 K/uL 130-40 0 normal Not Available [facility] [address] [place] [address], [address], 01/03/2022 09:22:33 01/04/20 22 01/03/2022 COMPL ETE BLOOD COUNT neutrophil,a bsolute 2.9 K/uL 1.6-8. 4 normal Not Available [facility] [address] [place] [address], [address], 01/03/2022 09:22:33 01/04/20 22 01/03/2022 COMPL ETE BLOOD COUNT lymphocyte,a bsolute 3.0 K/uL 0.4-5. 1 normal Not Available [facility] [address] [place] [address], [address], 01/03/2022 09:22:33 01/04/20 22 01/03/2022 COMPL ETE BLOOD COUNT monocyte,abs olute 0.7 K/uL 0.0-1. 2 normal Not Available [facility] [address] [place] [address], [address], 01/03/2022 09:22:33 01/04/20 22 01/03/2022 COMPL ETE BLOOD COUNT eosinophil,a bsolute 0.2 K/uL 0.0-0. 8 normal Not Available [facility] [address] [place] [address], [address], 01/03/2022 09:22:33 01/04/20 22 01/03/2022 COMPL ETE BLOOD COUNT basophil,abs olute 0.1 K/uL 0.0-0. 3 normal Not Available [facility] [address] [place] [address], [address], 01/03/2022 09:22:33 01/04/20 22 01/03/2022 COMPL ETE BLOOD COUNT % neutrophils 42.0 % 42.0-7 8.0 normal Not Available [facility] [address] [place] [address], [address], 01/03/2022 09:22:33 01/04/2001/03/2022 COMPL ETE BLOOD COUNT % lymphocytes 42.8 % 11.0-4 7.0 normal Not Available [facility] [address] [place] [address], [address], 01/03/2022 09:22:33 01/04/20 22 01/03/2022 COMPL ETE BLOOD COUNT % monocytes 10.6 % 0.0-11 .0 normal Not Available [facility] [address] [place] [address], [address], 01/03/2022 09:22:33 01/04/2001/03/2022 COMPL ETE BLOOD COUNT % eosinophils 3.5 % 0.0-7. 0 normal Not Available [facility] [address] [place] [address], [address], 01/03/2022 09:22:33 01/04/20 22 01/03/2022 COMPL ETE BLOOD COUNT % basophils 1.1 % 0.0-3. 0 normal Not Available [facility] [address] [place] [address], [address], 01/03/2022 09:22:33 01/04/20 22 01/03/2022 COMPL ETE BLOOD COUNT nucleated red cells 0.0 % 0.0-0. 9 normal Not Available [facility] [address] [place] [address], [address], 01/03/2022 09:22:33 01/04/20 22 01/03/2022 COMPL ETE BLOOD COUNT nucleated RBCs, absolute 0.00 K/uL not estab. normal Not Available [facility] [address] [place] [address], [address], 01/03/2022 09:22:33 01/04/20 22 01/03/2022 COMP. METAB OLIC PANEL glucose 108 mg/dL 74-100 high Not Available [facility] [address] [place] [address], [address], 01/03/2022 09:58:10 01/04/20 22 01/03/2022 COMP. METAB OLIC PANEL blood urea nitrogen 8 mg/dL 6-20 normal Not Available [facility] [address] [place] [address], [address], 01/03/2022 09:58:10 01/04/20 22 01/03/2022 COMP. METAB OLIC PANEL creatinine 0.91 mg/dL 0.50-0 .95 normal Not Available [facility] [address] [place] [address], [address], 01/03/2022 09:58:10 01/04/20 22 01/03/2022 COMP. METAB OLIC PANEL BUN/creatini ne ratio 9 (calc ) 10-20 low Not Available [facility] [address] [place] [address], [address], 01/03/2022 09:58:10 01/04/20 22 01/03/2022 COMP. METAB OLIC PANEL sodium 139 mmol/ L 136-14 5 normal Not Available [facility] [address] [place] [address], [address], 01/03/2022 09:58:10 01/04/20 22 01/03/2022 COMP. METAB OLIC PANEL potassium 4.5 mmol/ L 3.4-5. 0 normal Not Available [facility] [address] [place] [address], [address], 01/03/2022 09:58:10 01/04/20 22 01/03/2022 COMP. METAB OLIC PANEL chloride 100 mmol/ L 98-107 normal Not Available [facility] [address] [place] [address], [address], 01/03/2022 09:58:10 01/04/20 22 01/03/2022 COMP. METAB OLIC PANEL carbon dioxide 28 mmol/ L 22-31 normal Not Available [facility] Laboratory [address] [place] [address], [address], 01/03/2022 09:58:10 01/04/20 22 01/03/2022 COMP. METAB OLIC PANEL anion gap 11 (calc ) 7-25 normal Not Available [facility] [address] [place] [address], [address], 01/03/2022 09:58:10 01/04/20 22 01/03/2022 COMP. METAB OLIC PANEL calcium 9.8 mg/dL 8.6-10 .2 normal Not Available [facility] [address] [place] [address], [address], 01/03/2022 09:58:10 01/04/20 22 01/03/2022 COMP. METAB OLIC PANEL total protein 7.9 g/dL 6.4-8. 3 normal Not Available [facility] [address] [place] [address], [address], 01/03/2022 09:58:10 01/04/20 22 01/03/2022 COMP. METAB OLIC PANEL albumin 4.4 g/dL 3.5-5. 2 normal Not Available [facility] [address] [place] [address], [address], 01/03/2022 09:58:10 01/04/20 22 01/03/2022 COMP. METAB OLIC PANEL globulin 3.5 g/dL_ (calc ) 1.5-4. 5 normal Not Available [facility] [address] [place] [address], [address], 01/03/2022 09:58:10 01/04/20 22 01/03/2022 COMP. METAB OLIC PANEL albumin/glob ulin ratio 1.3 (calc ) 1.1-2. 5 normal Not Available [facility] [address] [place] [address], [address], 01/03/2022 09:58:10 01/04/20 22 01/03/2022 COMP. METAB OLIC PANEL bilirubin, total 0.5 mg/dL 0.1-1. 2 normal Not Available [facility] [address] [place] [address], [address], 01/03/2022 09:58:10 01/04/20 22 01/03/2022 COMP. METAB OLIC PANEL alkaline phosphatase 73 U/L 30-121 normal Not Available [facility] [address] [place] [address], [address], 01/03/2022 09:58:10 01/04/20 22 01/03/2022 COMP. METAB OLIC PANEL AST 25 U/L 0-32 normal Not Available [facility] [address] [place] [address], [address], 01/03/2022 09:58:10 01/04/20 22 01/03/2022 COMP. METAB OLIC PANEL ALT 17 U/L 0-33 normal Not Available [facility] [address] [place], [address], 01/03/2022 09:58:10 01/04/2001/03/2022 COMP. METAB OLIC PANEL [...] patie nts refer to [email or web address] :[email or web address]/gf r_cal culat orPed Not Available [facility] [address] [place] [address], [address], 01/03/2022 09:58:10 01/04/20 22 01/03/2022 LIPID PROFI LE HDL cholesterol 63 mg/dL 50-242 normal Not Available [facility] [address] [place], [address], 01/03/2022 09:58:12 01/04/20 22 01/03/2022 LIPID PROFI LE triglyceride s 162 mg/dL 0-149 high TRIGL YCERI DE RANGE S SUSI L: < 150 BORDE RLINE HIGH: 150 - 199 HIGH: 200 - 499 VERY HIGH: > OR = 500 Not Available [facility] [address] [place], [address], 01/03/2022 09:58:12 01/04/20 22 01/03/2022 LIPID PROFI LE cholesterol 264 mg/dL 0-199 high ELVA STERO L (TOTA L) RANGE S WU ABLE: < 200 BORDE RLINE : 200 - 239 HIGHE R RISK: > 239 Not Available [facility] [address] [place], [address], 01/03/2022 09:58:12 01/04/20 22 01/03/2022 LIPID PROFI LE LDL cholesterol 169 mg/dL _(diaz c) 0-99 high LDL ELVA STERO L RANGE S OPTIM AL: < 100 NEAR/ ABOVE OPTIM AL: 100 - 129 BORDE RLINE HIGH: 130 - 159 HIGH: 160 - 189 VERY HIGH: > OR = 190 Not Available [facility] [address] [facility], [place], [address], 01/03/2022 09:58:12 05/18/19 20 05/14/2019 MAMMO , scree mary beth, tomos ynthe sis, bilat eral, w/ CAD No observ ation record ed. [address] [facility] [address] [place], [id number], 01/15/2020 12:48:48 05/22/19 21 05/16/2020 MAMMO , scree mary beth, tomos ynthe sis, bilat eral, w/ CAD No observ ation record ed. [address], [place], [address], 01/14/2021 09:10:34 01/04/20 22 05/23/2021 MAMMO , scree mary beth, bilat eral, w/ CAD No observ ation record ed. [address] (Med Record) [address] [place] [address] [address], [place], [address], 01/03/2022 17:21:15 01/10/20 22 01/09/2022 CT, abdom en + pelvi s, w/ contr ast No observ ation record ed. [email or web address] [address], [place], [address], 01/16/2022 13:33:50 Result Notes None recorded. Problems Name Problem SNOMED Code Status Onset Date Resolution Date Notes Provider Name and Address Organization Details Recorded Time History of non-Hodgkin s lymphoma 829431656 Active 2018 JEAN CRUZ MD [address] [place] [address], [address], [facility] 9 19:00:07 History of radiation therapy to chest 4683020591217 4 Active 2018 JEAN CRUZ MD [address] [place] [address], [address], 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 9 19:01:22 Long-term current use of anticoagula nt 526783378 Active 2018 JEAN CRUZ MD [address] [place] [address], [address], [facility] 9 19:01:34 Left upper quadrant pain 176064393 Active 2021 JEAN CRUZ MD [address] [place] [address], [address], [facility] 2 20:00:44 Problem Notes None recorded. Procedures Surgical History Date Name Laterality Status Provider Name and Address Organization Details Recorded Time 07/05/19 22 Pacemaker completed Graciela Escudero [facility] 01/03/2022 10:18:39 04/21/18 97 Total Hysterectomy completed Tanesha Chino [facility] 01/12/2020 09:16:55 Imaging Results Imaging Date Name Status LastModified by Organiz ation Details LastModified Time 05/14/2019 MAMMO, screening, tomosynthesis , bilateral, w/ CAD completed [address] [facility] [address], [place], [phone], 01/15/2020 12:48:48 05/16/2020 MAMMO, screening, tomosynthesis , bilateral, w/ CAD completed [address], [place], [address], 01/14/2021 09:10:34 05/23/2021 MAMMO, screening, bilateral, w/ CAD completed [facility] (Med Record) [address], [place], [address], 01/03/2022 17:21:15 01/09/2022 CT, abdomen + pelvis, w/ contrast completed [email or web address] [facility] [address], [place], [address], 01/16/2022 13:33:50 Procedure Notes None recorded. Medical Equipment None Reported. Allergies Allergen ID Allergen Name Allergen Category Reaction Reaction Severity Criticality Documentation Date Start Date Code Code System Note Provider Name and Address Organization Details Recorded Time 966342 Calan medicatio n other severe Not available 01/11/2019 55341 0 [facility] 9 09:09:08 642820 hydrocodo ne Not available Not available Not available Not available 01/11/2019 5489 RxNorm pvcs and pacs [facility] 9 09:09:18 378756 Prilosec medicatio n Not available Not available Not available 01/11/201950188 5 [facility] 9 09:09:26 218629 Xarelto medicatio n itching severe Not available 01/11/2019 49875 99 [facility] 9 09:03:59 Medications Name Sig Start Date [...] Address Organization Details Last Updated DateTime 9 247487. 64 g 47.1 kg/m2 165.1 cm 72 /min 97 % 97 % 97.7 [degF] 112 mm[Hg] 72 mm[Hg] Medina Urena [facility] 9 09:15:16 Date Recorded Body height Pain severity - 0-10 verbal numeric rating [Score] - Reported Oxygen saturation Oxygen saturation in Arterial blood by Pulse oximetry Heart rate Body mass index (BMI) Body weight Systolic blood pressure Diastolic blood pressure Provider Name and Address Organization Details Last Updated DateTime 0 165.1 cm 0 98 % 98 % 75 /min 46.1 kg/m2 241418. 09 g 130 mm[Hg] 80 mm[Hg] Tanesha Chino [facility] 0 09:19:11 Date Recorded Body height Body mass index (BMI) Body weight Pain severity - 0-10 verbal numeric rating [Score] - Reported Body temperature Heart rate Oxygen saturation Oxygen saturation in Arterial blood by Pulse oximetry Systolic blood pressure Diastolic blood pressure Provider Name and Address Organization Details Last Updated DateTime 1 165.1 cm 46.1 kg/m2 373110. 44 g 0 97.5 [degF] 67 /min 96 % 96 % 125 mm[Hg] 79 mm[Hg] Tanesha Chino [facility] 1 10:04:34 Date Recorded Body height Body mass index (BMI) Body weight Body temperature Heart rate Oxygen saturation Oxygen saturation in Arterial blood by Pulse oximetry Systolic blood pressure Diastolic blood pressure Provider Name and Address Organization Details Last Updated DateTime 2 165.1 cm 45.4 kg/m2 256243. 07 g 97.7 [degF] 72 /min 98 % 98 % 120 mm[Hg] 77 mm[Hg] Graciela Escudero [facility] 2 10:26:19 Social History Question Answer Notes LastModified by Organizat ion Details LastModified Time Tobacco Smoking Status Never Smoker [facility]/11/2019 09:11:34 What Is Your Level Of Alcohol Consumption? None Information not available 01/11/2019 How Much Tobacco Do You Chew? None Information not available 01/11/2019 Have You Been To An Area Known To Be High Risk For COVID-19? No [email or web address] Information not available 01/12/2020 Do You Or Have You Ever Used E-cigarettes Or Vape? Never Used Electronic Cigarettes Information not available 01/11/2019 What Is Your Occupation? Unemployed Information not available 01/12/2020 Live Alone Or With Others? With Others [email or web address] Information not available 01/12/2020 Education Level College [email or web address] Informati on not available 01/12/2020 Learning Preferences Verbal/written [email or web address] Information not available 01/10/2021 Marital Status [email or web address] Informatio n not available 01/12/2020 What Was The Date Of Your Most Recent Tobacco Screening? 01/03/2022 [email or web address] Information not available 01/03/2022 How Many Children Do You Have? 1 Information not available 01/12/2020 What Is Your Relationship Status? [email or web address] Information not available 01/10/2021 Do You Or Have You Ever Used Smokeless Tobacco? Never Used Smokeless Tobacco Information not available 01/11/2019 How Much Tobacco Do You Smoke? No Information not available 01/11/2019 Do You Use Any Illicit Or Recreational Drugs? No Information not available 01/10/2021 Has Tobacco Cessation Counseling Been Provided? No Information not available 01/10/2021 How Many Years Have You Smoked Tobacco? 0 Information not available 01/11/2019 Do You Or Have You Ever Used Any Other Forms Of Tobacco Or Nicotine? No Information not available 01/10/2021 Sex: Female Functional Status None recorded. Mental Status None recorded. Family History Relationship Description Onset Age of this Age Resolved Age Notes LastModified by Organization Details LastModified Time Father No current problems or disability Not available 01/11 09:15:22 Mother No current problems or disability [email or web address] Not available 01/11 09:15:22 Medical History Condition Response Hypertension Y Gynecological HistoryNo gynecological history recorded. Obstetrics History GPAL:G 0 P 0 0 0 0 Immunizations Vaccine Type Date Status Note Provider Nam e and Address Organization Details Recorded Time COVID-19, mRNA, LNP-S, PF, 100 mcg/0.5mL dose or 50 mcg/0.25mL dose 06/20/2020 completed [facility]10[facility]2021 10:01:11 COVID-19, mRNA, LNP-S, PF, 100 mcg/0.5mL dose or 50 mcg/0.25mL dose 07/18/2020 completed Tanesha Chino [facility] 01/10/2021 10:01:17 Past Encounters Encounter ID Performer Location Encounter Start Date Encounter Closed Date Diagnosis/Indication Diagnosis SNOMED-CT Code Diagnosis ICD10 Code Diagnosis Note [id number] JEAN CRUZ MD HEM/[facility]C [facility] [address],[facility] [address] [place] [address] 01/01/2017 09:05:16 01/01/2017 11:50:36 [id number] JEAN CRUZ MD HEM/ONC [place] [facility] [address],[facility] [address] [place] [address] 01/07/2018 08:49:47 01/07/2018 10:46:01 [id number] JEAN CRUZ MD HEM/ONC SB CLOSED [address] [place] [address] 01/11/2019 08:55:10 01/11/2019 11:07:29 History of non-Hodgkins lymphoma 957385721 Z85.72 History of radiation therapy to chest 1855647369 9104 Z92.3 Body mass index 40+ - severely obese 779343602 Z68.42 Antithromb in III deficiency 11833652 D68.59 Long-term drug therapy 063340725 Z79.560 [id number] MD [address] [place] [address] 02/11/2019 13:30:03 02/11/2019 15:57:[id number] [place] [address] 02/11/2019 14:39:21 02/11/2019 15:44:54 [id number] JEAN CRUZ MD HEM/ONC SB CLOSED [address] [place] [address] 01/12/2020 09:03:57 01/12/2020 11:16:40 History of non-Hodgkins lymphoma 089133313 Z85.72 [id number] JEAN CRUZ MD HEM/ONC SB CLOSED [address] [place] [address] 01/10/2021 09:05:14 01/10/2021 12:50:40 History of non-Hodgkins lymphoma 683245806 Z85.72 Antithromb in III deficiency 37268911 D68.59 History of radiation therapy to chest 2924520584 9104 Z92.3 Long-term current use of anticoagulant 397313093 Z79.01 Body mass index 40+ - severely obese 258937603 Z68.42 [id number] JEAN CRUZ MD HEM/ONC SB CLOSED [address] [place] [address] 01/03/2022 09:08:05 01/03/2022 11:54:52 Antithrombin III deficiency 98636455 D68.59 History of radiation therapy to chest 8213974769 9104 Z92.3 History of non-Hodgkins lymphoma 976609143 Z85.72 Long-term current use of anticoagulant 767556379 Z79.01 Left upper quadrant pain 154247881 R10.12 Body mass index 40+ - severely obese 697413936 Z68.42 Health Concerns Section Related Observation LastModified by Organization Detai ls LastModified Time None Recorded Concern Status LastModified by Organization Details LastModified Time None Recorded Advance Directives Directive None Recorded Payers Insurance Date Sequence Insurance Name Policy Number Policy Lynn Covered Member ID Lynn Member ID Guarantor Name 01/15/2022 2 [employer] (PPO) Jessica Odell [id number] Jessica Odell 01/11/2022 2 [employer] MULT[employer] (PPO) Jessica Odell [id number] Jessica Odell 01/10/2022 1 [facility] (MEDICAID HMO) Jessica Odell [id number] Jessica Odell 01/10/2022 GENERIC INSURANC E - MOVED-HOLD Jessica Odell 08/23/2021 1 [place] [id number] Oskar Odell [id number] Jessica Odell Notes Date Note Type Note Provider Name and Address Organization Details Recorded Time 9 text/html HPIReported bypatient.Advanced Directives / [employer] AuthorizationsAdvanced Directives? NO Dischargedischarge disposition stable Distress ScreeningHas the distress screening been completed in the last 45 days? YES; Distress level 0 no stress Practical Problemsno practical problems Family Problemsno family problems Emotional Problemsno emotional problems Spiritual/Religiousspiritua l/religion problems? NO Physical Problemsno physical problems Nutrition ScreeningNutrition Screening YES; special diet restrictions? describe:; Nutrition counseling last 6 months? NO; Nutrition Protocol implemented? NO Ms. 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 She had 8 cycles of ProMACE-CytaBom chemotherapy, followed by thoracic radiation. Other medical history is significant for anti-thrombin III deficiency, DVT and PE in 2013, continuing on Coumadin, hysterectomy with incidental appendectomy in 1997, arthritis and obesity. JEAN CRUZ MD [address] [place] [address], [phone], [facility] 01/17/2019 19:04:19 0 text/html HPIReported bypatient.Advanced Directives / [employer] AuthorizationsAdvanced Directives? NO Dischargedischarge disposition stable Distress ScreeningHas the distress screening been completed in the last 45 days? YES; Distress level 0 no stress Practical Problemsno practical problems Family Problemsno family problems Emotional Problemsno emotional problems Spiritual/Religiousspiritua l/religion problems? NO Physical Problemsweight loss;weight gain Nutrition ScreeningNutrition Screening YES; special diet restrictions? describe:; Nutrition counseling last 6 months? NO; Nutrition Protocol implemented? NO Ms. 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 She had 8 cycles of ProMACE-CytaBom chemotherapy, followed by thoracic radiation. Other medical history is significant for anti-thrombin III deficiency, DVT and PE in 2013, continuing on Coumadin, hysterectomy with incidental appendectomy in 1997, arthritis and obesity. JEAN CRUZ MD [address] [place] [address], [phone], [facility] 01/15/2020 12:49:09 1 text/html HPIReported bypatient.patient accompanied by:patient accompanied by spouse Advanced Directives / [employer] AuthorizationsAdvanced Directives? NO Dischargedischarge mode ambulatory; discharge disposition stable Distress ScreeningHas the distress screening been completed in the last 45 days? YES; Distress level 0 no stress Practical Problemsno practical problems Family Problemsno family problems Emotional Problemsno emotional problems Spiritual/Religiousspiritua l/religion problems? NO Physical Problemsno physical problems Nutrition ScreeningNutrition Screening YES; special diet restrictions? describe:; Nutrition counseling last 6 months? NO; Nutrition Protocol implemented? NO Ms. 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 She had 8 cycles of ProMACE-CytaBom chemotherapy, followed by thoracic radiation. Other medical history is significant for anti-thrombin III deficiency, DVT and PE in 2013, continuing on Coumadin, hysterectomy with incidental appendectomy in 1997, arthritis and obesity. JEAN CRUZ MD [address] [place] [address], [phone], [facility] 01/14/2021 09:13:56 2 text/html [place] HPIReported bypatient.patient accompanied by:patient accompanied by spouse Advanced Directives / [employer] AuthorizationsAdvanced Directives? NO Dischargedischarge mode ambulatory; discharge disposition stable Distress ScreeningHas the distress screening been completed in the last 45 days? YES; Distress level 0 no stress Practical Problemsno practical problems Family Problemsno family problems Emotional Problemsno emotional problems Spiritual/Religiousspiritua l/religion problems? NO Physical Problemsno physical problems Nutrition ScreeningNutrition Screening YES; special diet restrictions? describe:; Nutrition counseling last 6 months? NO; Nutrition Protocol implemented? NO Ms. 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 She had 8 cycles of ProMACE-CytaBom chemotherapy, followed by thoracic radiation. Other medical history is significant for anti-thrombin III deficiency, DVT and PE in 2013, continuing on Coumadin, hysterectomy with incidental appendectomy in 1997, arthritis and obesity. JENA CRUZ MD [address] [place] [address], [phone], [facility] 01/05/2022 20:04:05 OBGyn Episode No OBEpisode recorded.
--- OUTSIDE RECORDS SUMMARY | 2024-08-27 09:25 | XMS_ITS | Data Portability ---
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 Patient Instructions Encounter Date Encounter Id Patient Instructions Last Modified By Organization Details Last Modified Time 01/01/2017 [id number] learning about healthy weight IRVING Not available 02/17/2017 11:11:29 01/07/2018 [id number] non-hodgkin lymphoma: care instructions sliddle Not available 01/07/2018 10:31:08 When You Want to Lose Weight: Care Instructions sliddle Not available 01/07/2018 10:31:28 02/11/2019 [id number] nausea and vomiting: care instructions gosetinsky Not [...] 4.8 K/uL 3.8-10 .8 normal Not Available [facility] [address] [place] [address], [phone], 01/01/2017 09:35:48 01/02/2001/01/2017 CBC w/ auto diff red blood cells 4.85 M/uL 3.80-5 .20 normal Not Available [facility] [address] [place], [address], 01/01/2017 09:35:48 01/02/20 17 01/01/2017 CBC w/ auto diff hemoglobin 13.6 g/dL 12.0-1 6.0 normal Not Available [facility] [address] [place] [address], [address], 01/01/2017 09:35:48 01/02/2001/01/2017 CBC w/ auto diff hematocrit 41.4 % 35.0-4 7.0 normal Not Available [facility] [address] [place] [address], [address], 01/01/2017 09:35:48 01/02/2001/01/2017 CBC w/ auto diff MCV 85 fL 80-100 normal Not Available [facility] [address] [place] [address], [address], 01/01/2017 09:35:48 01/02/2001/01/2017 CBC w/ auto diff MCH 28 pg 26-35 normal Not Available [facility] [address] [place] [address], [address], 01/01/2017 09:35:48 01/02/2001/01/2017 CBC w/ auto diff MCHC 33 g/dL 32-36 normal Not Available [facility] [address] [place] [address], [address], 01/01/2017 09:35:48 01/02/2001/01/2017 CBC w/ auto diff RDW 14.6 % 11.0-1 5.0 normal Not Available [facility] [address] [place] [address], [address], 01/01/2017 09:35:48 01/02/2001/01/2017 CBC w/ auto diff MPV 7.5 fL 6.2-10 .5 normal Not Available [facility] [address] [place] [address], [address], 01/01/2017 09:35:48 01/02/2001/01/2017 CBC w/ auto diff platelet count 239 K/uL 130-40 0 normal Not Available [facility] [address] [place] [address], [address], 01/01/2017 09:35:48 01/02/2001/01/2017 CBC w/ auto diff neutrophil,a bsolute 1.9 K/uL 1.6-8. 4 normal Not Available [facility] [address] [place], [address], 01/01/2017 09:35:48 01/02/2001/01/2017 CBC w/ auto diff lymphocyte,a bsolute 2.2 K/uL 0.4-5. 1 normal Not Available [facility] [address] [place] [address], [address], 01/01/2017 09:35:48 01/02/2001/01/2017 CBC w/ auto diff monocyte,abs olute 0.4 K/uL 0.0-1. 2 normal Not Available [facility] [address] [place] [address], [address], 01/01/2017 09:35:48 01/02/2001/01/2017 CBC w/ auto diff eosinophil,a bsolute 0.2 K/uL 0.0-0. 8 normal Not Available [facility] [address] [place] [address], [address], 01/01/2017 09:35:48 01/02/2001/01/2017 CBC w/ auto diff basophil,abs olute 0.0 K/uL 0.0-0. 3 normal Not Available [facility] [address] [place] [address], [address], 01/01/2017 09:35:48 01/02/2001/01/2017 CBC w/ auto diff % neutrophils 40.6 % 42.0-7 8.0 low Not Available [facility] [address] [place] [address], [address], 01/01/2017 09:35:48 01/02/2001/01/2017 CBC w/ auto diff % lymphocytes 45.6 % 11.0-4 7.0 normal Not Available [facility] [address] [place] [address], [address], 01/01/2017 09:35:48 01/02/2001/01/2017 CBC w/ auto diff % monocytes 8.8 % 0.0-11 .0 normal Not Available [facility] [address] [place] [address], [address], 01/01/2017 09:35:48 01/02/2001/01/2017 CBC w/ auto diff % eosinophils 4.0 % 0.0-7. 0 normal Not Available [facility] [address] [place] [address], [address], 01/01/2017 09:35:48 01/02/2001/01/2017 CBC w/ auto diff % basophils 1.0 % 0.0-3. 0 normal Not Available [facility] [address] [place] [address], [address], 01/01/2017 09:35:48 01/02/2001/01/2017 CBC w/ auto diff nucleated red cells 0.2 % 0.0-0. 9 normal Not Available [facility] [address] [place] [address], [address], 01/01/2017 09:35:48 01/02/2001/01/2017 CBC w/ auto diff nucleated RBCs, absolute 0.01 K/uL not estab. normal Not Available [facility] [address] [place] [address], [address], 01/01/2017 09:35:48 01/02/2001/01/2017 CMP, serum or plasm a glucose 95 mg/dL 74-100 normal Not Available [facility] [address] [place] [address], [address], 01/01/2017 10:04:58 01/02/2001/01/2017 CMP, serum or plasm a blood urea nitrogen 10 mg/dL 6-20 normal Not Available [facility] [address] [place] [address], [address], 01/01/2017 10:04:58 01/02/2001/0101/01/2017 CMP, serum or plasm a creatinine 0.81 mg/dL 0.50-0 .95 normal Not Available [facility] [address] [place] [address], [address], 01/01/2017 10:04:58 01/02/20 17 01/01/2017 CMP, serum or plasm a BUN/creatini ne ratio 12 (calc ) 10-20 normal Not Available [facility] [address] [place] [address], [address], 01/01/2017 10:04:58 01/02/20 17 01/01/2017 CMP, serum or plasm a GFR 96 >= 60 normal Not Available [facility] [address] [place] [address], [address], 01/01/2017 10:04:58 01/02/20 17 01/01/2017 CMP, serum [...] s or longe r. . Not Available [facility] [address] [place], [address], 01/01/2017 10:04:58 01/02/20 17 01/01/2017 CMP, serum or plasm a sodium 138 mmol/ L 136-14 5 normal Not Available [facility] [address] [place] [address], [address], 01/01/2017 10:04:58 01/02/20 17 01/01/2017 CMP, serum or plasm a potassium 4.2 mmol/ L 3.4-5. 0 normal Not Available [facility] [address] [place], [address], 01/01/2017 10:04:58 01/02/20 17 01/01/2017 CMP, serum or plasm a chloride 101 mmol/ L 98-107 normal Not Available [facility] [address] [place] [address], [address], 01/01/2017 10:04:58 01/02/20 17 01/01/2017 CMP, serum or plasm a carbon dioxide 22 mmol/ L 20-32 normal Not Available [facility] [address] [place] [address], [address], 01/01/2017 10:04:58 01/02/20 17 01/01/2017 CMP, serum or plasm a anion gap 15 (calc ) 7-25 normal Not Available [facility] [address] [place] [address], [address], 01/01/2017 10:04:58 01/02/20 17 01/01/2017 CMP, serum or plasm a calcium 8.9 mg/dL 8.6-10 .2 normal Not Available [facility] [address] [place] [address], [address], 01/01/2017 10:04:58 01/02/20 17 01/01/2017 CMP, serum or plasm a total protein 7.3 g/dL 6.4-8. 3 normal Not Available [facility] [address] [place] [address], [address], 01/01/2017 10:04:58 01/02/20 17 01/01/2017 CMP, serum or plasm a albumin 3.9 g/dL 3.5-5. 2 normal Not Available [facility] [address] [place] [address], [address], 01/01/2017 10:04:58 01/02/20 17 01/01/2017 CMP, serum or plasm a globulin 3.4 g/dL_ (calc ) 1.5-4. 5 normal Not Available [facility] [address] [place] [address], [address], 01/01/2017 10:04:58 01/02/20 17 01/01/2017 CMP, serum or plasm a albumin/glob ulin ratio 1.1 (calc ) 1.1-2. 5 normal Not Available [facility] [address] [place] [address], [address], 01/01/2017 10:04:58 01/02/20 17 01/01/2017 CMP, serum or plasm a bilirubin, total 0.5 mg/dL 0.1-1. 2 normal Not Available [facility] [address] [place] [address], [address], 01/01/2017 10:04:58 01/02/20 17 01/01/2017 CMP, serum or plasm a alkaline phosphatase 61 U/L 35-105 normal Not Available [facility] [address] [place] [address], [address], 01/01/2017 10:04:58 01/02/20 17 01/01/2017 CMP, serum or plasm a AST 23 U/L 0-32 normal Not Available [facility] [address] [place] [address], [address], 01/01/2017 10:04:58 01/02/20 17 01/01/2017 CMP, serum or plasm a ALT 14 U/L 0-33 normal Not Available [facility] [address] [place] [address], [address], 01/01/2017 10:04:58 01/02/20 17 01/01/2017 lipid panel , serum HDL cholesterol 65 mg/dL 66-242 low Not Available [facility] [address] [place] [address], [address], 01/01/2017 10:05:00 01/02/20 17 01/01/2017 lipid panel , serum triglyceride s 131 mg/dL 0-149 normal TRIGL YCERI DE RANGE S SUSI L: < 150 BORDE RLINE HIGH: 150 - 199 HIGH: 200 - 499 VERY HIGH: > OR = 500 Not Available [facility] [address] [place] [address], [address], 01/01/2017 10:05:00 01/02/20 17 01/01/2017 lipid panel , serum cholesterol 223 mg/dL 0-199 high ELVA STERO L (TOTA L) RANGE S WU ABLE: < 200 BORDE RLINE : 200 - 239 HIGHE R RISK: > 239 Not Available [facility] [address] [place] [address], [address], 01/01/2017 10:05:00 01/02/20 17 01/01/2017 lipid panel , serum LDL cholesterol 132 mg/dL _(diaz c) 0-99 high LDL ELVA STERO L RANGE S OPTIM AL: < 100 NEAR/ ABOVE OPTIM AL: 100 - 129 BORDE RLINE HIGH: 130 - 159 HIGH: 160 - 189 VERY HIGH: > OR = 190 Not Available [facility] [address] [place] [address], [address], 01/01/2017 10:05:00 01/08/20 18 01/07/2018 CBC w/ auto diff white blood cells 4.8 K/uL 3.8-10 .8 normal Not Available [facility] [address] [place] [address], [address], 01/07/2018 09:32:31 01/08/20 18 01/07/2018 CBC w/ auto diff red blood cells 4.53 M/uL 3.80-5 .20 normal Not Available [facility] [address] [place] [address], [address], 01/07/2018 09:32:31 01/08/20 18 01/07/2018 CBC w/ auto diff hemoglobin 13.4 g/dL 12.0-1 6.0 normal Not Available [facility] [address] [place] [address], [address], 01/07/2018 09:32:31 01/08/20 18 01/07/2018 CBC w/ auto diff hematocrit 38.8 % 35.0-4 7.0 normal Not Available [facility] [address] [place], [address], 01/07/2018 09:32:31 01/08/20 18 01/07/2018 CBC w/ auto diff MCV 86 fL 80-100 normal Not Available [facility] [address] [place] [address], [address], 01/07/2018 09:32:31 01/08/20 18 01/07/2018 CBC w/ auto diff MCH 30 pg 26-35 normal Not Available [facility] [address] [place] [address], [address], 01/07/2018 09:32:31 01/08/20 18 01/07/2018 CBC w/ auto diff MCHC 34 g/dL 32-36 normal Not Available [facility] [address] [place] [address], [address], 01/07/2018 09:32:31 01/08/20 18 01/07/2018 CBC w/ auto diff RDW 14.3 % 11.0-1 5.0 normal Not Available [facility] [address] [place] [address], [address], 01/07/2018 09:32:31 01/08/20 18 01/07/2018 CBC w/ auto diff MPV 7.7 fL 6.2-10 .5 normal Not Available [facility] [address] [place] [address], [address], 01/07/2018 09:32:31 01/08/20 18 01/07/2018 CBC w/ auto diff platelet count 268 K/uL 130-40 0 normal Not Available [facility] [address] [place] [address], [address], 01/07/2018 09:32:31 01/08/20 18 01/07/2018 CBC w/ auto diff neutrophil,a bsolute 1.9 K/uL 1.6-8. 4 normal Not Available [facility] [address] [place] [address], [address], 01/07/2018 09:32:31 01/08/20 18 01/07/2018 CBC w/ auto diff lymphocyte,a bsolute 2.2 K/uL 0.4-5. 1 normal Not Available [facility] [address] [place] [address], [address], 01/07/2018 09:32:31 01/08/20 18 01/07/2018 CBC w/ auto diff monocyte,abs olute 0.5 K/uL 0.0-1. 2 normal Not Available [facility] [address] [place] [address], [address], 01/07/2018 09:32:31 01/08/20 18 01/07/2018 CBC w/ auto diff eosinophil,a bsolute 0.2 K/uL 0.0-0. 8 normal Not Available [facility] [address] [place] [address], [address], 01/07/2018 09:32:31 01/08/20 18 01/07/2018 CBC w/ auto diff basophil,abs olute 0.0 K/uL 0.0-0. 3 normal Not Available [facility] [address] [place] [address], [address], 01/07/2018 09:32:31 01/08/20 18 01/07/2018 CBC w/ auto diff % neutrophils 40.4 % 42.0-7 8.0 low Not Available [facility] [address] [place] [address], [address], 01/07/2018 09:32:31 01/08/20 18 01/07/2018 CBC w/ auto diff % lymphocytes 44.9 % 11.0-4 7.0 normal Not Available [facility] [address] [place] [address], [address], 01/07/2018 09:32:31 01/08/20 18 01/07/2018 CBC w/ auto diff % monocytes 10.6 % 0.0-11 .0 normal Not Available [facility] [address] [place] [address], [address], 01/07/2018 09:32:31 01/08/20 18 01/07/2018 CBC w/ auto diff % eosinophils 3.3 % 0.0-7. 0 normal Not Available [facility] [address] [place] [address], [address], 01/07/2018 09:32:31 01/08/20 18 01/07/2018 CBC w/ auto diff % basophils 0.8 % 0.0-3. 0 normal Not Available [facility] [address] [place] [address], [address], 01/07/2018 09:32:31 01/08/20 18 01/07/2018 CBC w/ auto diff nucleated red cells 0.2 % 0.0-0. 9 normal Not Available [facility] [address] [place] [address], [address], 01/07/2018 09:32:31 01/08/20 18 01/07/2018 CBC w/ auto diff nucleated RBCs, absolute 0.01 K/uL not estab. normal Not Available [facility] [address] [place] [address], [address], 01/07/2018 09:32:31 01/08/20 18 01/07/2018 CMP, serum or plasm a glucose 104 mg/dL 74-100 high Not Available [facility] [address] [place] [address], [address], 01/07/2018 09:55:17 01/08/20 18 01/07/2018 CMP, serum or plasm a blood urea nitrogen 9 mg/dL 6-20 normal Not Available [facility] [address] [place], [address], 01/07/2018 09:55:17 01/08/20 18 01/07/2018 CMP, serum or plasm a creatinine 0.85 mg/dL 0.50-0 .95 normal Not Available [facility] [address] [place] [address], [address], 01/07/2018 09:55:17 01/08/20 18 01/07/2018 CMP, serum or plasm a BUN/creatini ne ratio 11 (calc ) 10-20 normal Not Available [facility] [address] [place] [address], [address], 01/07/2018 09:55:17 01/08/20 18 01/07/2018 CMP, serum or plasm a sodium 138 mmol/ L 136-14 5 normal Not Available [facility] [address] [place] [address], [address], 01/07/2018 09:55:17 01/08/20 18 01/07/2018 CMP, serum or plasm a potassium 4.6 mmol/ L 3.4-5. 0 normal Not Available [facility] [address] [place] [address], [address], 01/07/2018 09:55:17 01/08/20 18 01/07/2018 CMP, serum or plasm a chloride 101 mmol/ L 98-107 normal Not Available [facility] [address] [place] [address], [address], 01/07/2018 09:55:17 01/08/20 18 01/07/2018 CMP, serum or plasm a carbon dioxide 29 mmol/ L 20-32 normal Not Available [facility] [address] [place] [address], [address], 01/07/2018 09:55:17 01/08/20 18 01/07/2018 CMP, serum or plasm a anion gap 8 (calc ) 7-25 normal Not Available [facility] [address] [place] [address], [address], 01/07/2018 09:55:17 01/08/20 18 01/07/2018 CMP, serum or plasm a calcium 9.2 mg/dL 8.6-10 .2 normal Not Available [facility] [address] [place] [address], [address], 01/07/2018 09:55:17 01/08/20 18 01/07/2018 CMP, serum or plasm a total protein 7.2 g/dL 6.4-8. 3 normal Not Available [facility] [address] [place] [address], [address], 01/07/2018 09:55:17 01/08/20 18 01/07/2018 CMP, serum or plasm a albumin 3.9 g/dL 3.5-5. 2 normal Not Available [facility] [address] [place] [address], [address], 01/07/2018 09:55:17 01/08/20 18 01/07/2018 CMP, serum or plasm a globulin 3.3 g/dL_ (calc ) 1.5-4. 5 normal Not Available [facility] [address] [place] [address], [address], 01/07/2018 09:55:17 01/08/2001/07/2018 CMP, serum or plasm a albumin/glob ulin ratio 1.2 (calc ) 1.1-2. 5 normal Not Available [facility] [address] [place] [address], [address], 01/07/2018 09:55:17 01/08/2001/07/2018 CMP, serum or plasm a bilirubin, total 0.6 mg/dL 0.1-1. 2 normal Not Available [facility] [address] [place] [address], [address], 01/07/2018 09:55:17 01/08/2001/07/2018 CMP, serum or plasm a alkaline phosphatase 55 U/L 35-105 normal Not Available [facility] [address] [place], [address], 01/07/2018 09:55:17 01/08/20 18 01/07/2018 CMP, serum or plasm a AST 18 U/L 0-32 normal Not Available [facility] [address] [place], [address], 01/07/2018 09:55:17 01/08/20 18 01/07/2018 CMP, serum or plasm a ALT 13 U/L 0-33 normal Not Available [facility] [address] [place], [address], 01/07/2018 09:55:17 01/08/20 18 01/07/2018 CMP, serum or plasm a GFR 90 >= 60 normal Not Available [facility] [address] [place], [address], 01/07/2018 09:55:17 01/08/20 18 01/07/2018 CMP, serum [...] s or longe r. . Not Available [facility] [address] [place], [address], 01/07/2018 09:55:17 01/08/20 18 01/07/2018 lipid panel , serum HDL cholesterol 62 mg/dL 66-242 low Not Available [facility] [address] [place], [address], 01/07/2018 09:55:19 01/08/20 18 01/07/2018 lipid panel , serum triglyceride s 125 mg/dL 0-149 normal TRIGL YCERI DE RANGE S SUSI L: < 150 BORDE RLINE HIGH: 150 - 199 HIGH: 200 - 499 VERY HIGH: > OR = 500 Not Available [facility] [address] [place] [address], [address], 01/07/2018 09:55:19 01/08/2001/07/2018 lipid panel , serum cholesterol 240 mg/dL 0-199 high ELVA STERO L (TOTA L) RANGE S WU ABLE: < 200 BORDE RLINE : 200 - 239 HIGHE R RISK: > 239 Not Available [facility] [address] [place] [address], [address], 01/07/2018 09:55:19 01/08/2001/07/2018 lipid panel , serum LDL cholesterol 153 mg/dL _(diaz c) 0-99 high LDL ELVA STERO L RANGE S OPTIM AL: < 100 NEAR/ ABOVE OPTIM AL: 100 - 129 BORDE RLINE HIGH: 130 - 159 HIGH: 160 - 189 VERY HIGH: > OR = 190 Not Available [facility] [address] [place] [address], [address], 01/07/2018 09:55:19 01/12/2001/11/2019 CMP, serum or plasm a glucose 108 mg/dL 74-100 high Not Available [facility] [address] [place] [address], [address], 01/11/2019 09:17:14 01/12/2001/11/2019 CMP, serum or plasm a blood urea nitrogen 10 mg/dL 6-20 normal Not Available [facility] [address] [place], [address], 01/11/2019 09:17:14 01/12/2001/11/2019 CMP, serum or plasm a creatinine 0.92 mg/dL 0.50-0 .95 normal Not Available [facility] [address] [place] [address], [address], 01/11/2019 09:17:14 01/12/20 19 01/11/2019 CMP, serum or plasm a BUN/creatini ne ratio 11 (calc ) 10-20 normal Not Available [facility] [address] [place] [address], [address], 01/11/2019 09:17:14 01/12/20 19 01/11/2019 CMP, serum or plasm a sodium 139 mmol/ L 136-14 5 normal Not Available [facility] [address] [place] [address], [address], 01/11/2019 09:17:14 01/12/2001/11/2019 CMP, serum or plasm a potassium 4.2 mmol/ L 3.4-5. 0 normal Not Available [facility] [address] [place] [address], [address], 01/11/2019 09:17:14 01/12/2001/11/2019 CMP, serum or plasm a chloride 101 mmol/ L 98-107 normal Not Available [facility] [address] [place] [address], [address], 01/11/2019 09:17:14 01/12/2001/11/2019 CMP, serum or plasm a carbon dioxide 24 mmol/ L 20-32 normal Not Available [facility] [address] [place] [address], [address], 01/11/2019 09:17:14 01/12/2001/11/2019 CMP, serum or plasm a anion gap 14 (calc ) 7-25 normal Not Available [facility] [address] [place] [address], [address], 01/11/2019 09:17:14 01/12/2001/11/2019 CMP, serum or plasm a calcium 9.0 mg/dL 8.6-10 .2 normal Not Available [facility] [address] [place] [address], [address], 01/11/2019 09:17:14 01/12/2001/11/2019 CMP, serum or plasm a total protein 6.8 g/dL 6.4-8. 3 normal Not Available [facility] [address] [place] [address], [address], 01/11/2019 09:17:14 01/12/2001/11/2019 CMP, serum or plasm a albumin 3.9 g/dL 3.5-5. 2 normal Not Available [facility] [address] [place] [address], [address], 01/11/2019 09:17:14 01/12/2001/11/2019 CMP, serum or plasm a globulin 2.9 g/dL_ (calc ) 1.5-4. 5 normal Not Available [facility] [address] [place] [address], [address], 01/11/2019 09:17:14 01/12/2001/11/2019 CMP, serum or plasm a albumin/glob ulin ratio 1.3 (calc ) 1.1-2. 5 normal Not Available [facility] [address] [place] [address], [address], 01/11/2019 09:17:14 01/12/2001/11/2019 CMP, serum or plasm a bilirubin, total 0.4 mg/dL 0.1-1. 2 normal Not Available [facility] [address] [place] [address], [address], 01/11/2019 09:17:14 01/12/2001/11/2019 CMP, serum or plasm a alkaline phosphatase 55 U/L 35-105 normal Not Available [facility] [address] [place], [address], 01/11/2019 09:17:14 01/12/2001/11/2019 CMP, serum or plasm a AST 16 U/L 0-32 normal Not Available [facility] [address] [place], [address], 01/11/2019 09:17:14 01/12/20 19 01/11/2019 CMP, serum or plasm a ALT 12 U/L 0-33 normal Not Available [facility] [place], [address], 01/11/2019 09:17:14 01/12/20 19 01/11/2019 CMP, serum or plasm a GFR 81 >= 60 normal Not Available [facility] [address] [place], [address], 01/11/2019 09:17:14 01/12/20 19 01/11/2019 CMP, serum [...] month s or longe r. Not Available [facility] [address] [place] [address], [address], 01/11/2019 09:17:14 01/12/2001/11/2019 CBC w/ auto diff white blood cells 5.9 K/uL 3.8-10 .8 normal Not Available [facility] [address] [place] [address], [address], 01/11/2019 09:02:43 01/12/2001/11/2019 CBC w/ auto diff red blood cells 4.35 M/uL 3.80-5 .20 normal Not Available [facility] [address] [place] [address], [address], 01/11/2019 09:02:43 01/12/2001/11/2019 CBC w/ auto diff hemoglobin 12.7 g/dL 12.0-1 6.0 normal Not Available [facility] [address] [place] [address], [address], 01/11/2019 09:02:43 01/12/20 19 01/11/2019 CBC w/ auto diff hematocrit 37.6 % 35.0-4 7.0 normal Not Available [facility] [address] [place] [address], [address], 01/11/2019 09:02:43 01/12/20 19 01/11/2019 CBC w/ auto diff MCV 87 fL 80-100 normal Not Available [facility] [address] [place] [address], [address], 01/11/2019 09:02:43 01/12/2001/11/2019 CBC w/ auto diff MCH 29 pg 26-35 normal Not Available [facility] [address] [place] [address], [address], 01/11/2019 09:02:43 01/12/2001/11/2019 CBC w/ auto diff MCHC 34 g/dL 32-36 normal Not Available [facility] [address] [place] [address], [address], 01/11/2019 09:02:43 01/12/2001/11/2019 CBC w/ auto diff RDW 14.5 % 11.0-1 5.0 normal Not Available [facility] [address] [place] [address], [address], 01/11/2019 09:02:43 01/12/2001/11/2019 CBC w/ auto diff MPV 7.3 fL 6.2-10 .5 normal Not Available [facility] [address] [place] [address], [address], 01/11/2019 09:02:43 01/12/2001/11/2019 CBC w/ auto diff platelet count 250 K/uL 130-40 0 normal Not Available [facility] [address] [place], [address], 01/11/2019 09:02:43 01/12/2001/11/2019 CBC w/ auto diff neutrophil,a bsolute 2.4 K/uL 1.6-8. 4 normal Not Available [facility] [address] [place] [address], [address], 01/11/2019 09:02:43 01/12/2001/11/2019 CBC w/ auto diff lymphocyte,a bsolute 2.8 K/uL 0.4-5. 1 normal Not Available [facility] [address] [place] [address], [address], 01/11/2019 09:02:43 01/12/2001/11/2019 CBC w/ auto diff monocyte,abs olute 0.5 K/uL 0.0-1. 2 normal Not Available [facility] [address] [place] [address], [address], 01/11/2019 09:02:43 01/12/2001/11/2019 CBC w/ auto diff eosinophil,a bsolute 0.2 K/uL 0.0-0. 8 normal Not Available [facility] [address] [place] [address], [address], 01/11/2019 09:02:43 01/12/2001/11/2019 CBC w/ auto diff basophil,abs olute 0.1 K/uL 0.0-0. 3 normal Not Available [facility] [address] [place] [address], [address], 01/11/2019 09:02:43 01/12/2001/11/2019 CBC w/ auto diff % neutrophils 40.6 % 42.0-7 8.0 low Not Available [facility] [address] [place] [address], [address], 01/11/2019 09:02:43 01/12/2001/11/2019 CBC w/ auto diff % lymphocytes 46.9 % 11.0-4 7.0 normal Not Available [facility] [address] [place] [address], [address], 01/11/2019 09:02:43 01/12/2001/11/2019 CBC w/ auto diff % monocytes 8.2 % 0.0-11 .0 normal Not Available [facility] [address] [place] [address], [address], 01/11/2019 09:02:43 01/12/2001/11/2019 CBC w/ auto diff % eosinophils 3.4 % 0.0-7. 0 normal Not Available [facility] [address] [place] [address], [address], 01/11/2019 09:02:43 01/12/2001/11/2019 CBC w/ auto diff % basophils 0.9 % 0.0-3. 0 normal Not Available [facility] [address] [place] [address], [address], 01/11/2019 09:02:43 01/12/2001/11/2019 CBC w/ auto diff nucleated red cells 0.1 % 0.0-0. 9 normal Not Available [facility] [address] [place] [address], [address], 01/11/2019 09:02:43 01/12/2001/11/2019 CBC w/ auto diff nucleated RBCs, absolute 0.01 K/uL not estab. normal Not Available [facility] [address] [place] [address], [address], 01/11/2019 09:02:43 01/12/2001/12/2020 CMP, serum or plasm a glucose 105 mg/dL 74-100 high Not Available [facility] [address] [place] [address], [address], 01/12/2020 09:32:21 01/12/2001/12/2020 CMP, serum or plasm a blood urea nitrogen 8 mg/dL 6-20 normal Not Available [facility] [address] [place] [address], [address], 01/12/2020 09:32:21 01/12/20 20 01/12/2020 CMP, serum or plasm a creatinine 0.86 mg/dL 0.50-0 .95 normal Not Available [facility] [address] [place] [address], [address], 01/12/2020 09:32:21 01/12/20 20 01/12/2020 CMP, serum or plasm a BUN/creatini ne ratio 9 (calc ) 10-20 low Not Available [facility] [address] [place] [address], [address], 01/12/2020 09:32:21 01/12/20 20 01/12/2020 CMP, serum or plasm a sodium 139 mmol/ L 136-14 5 normal Not Available [facility] [address] [place] [address], [address], 01/12/2020 09:32:21 01/12/20 20 01/12/2020 CMP, serum or plasm a potassium 4.2 mmol/ L 3.4-5. 0 normal Not Available [facility] [address] [place] [address], [address], 01/12/2020 09:32:21 01/12/20 20 01/12/2020 CMP, serum or plasm a chloride 103 mmol/ L 98-107 normal Not Available [facility] [address] [place] [address], [address], 01/12/2020 09:32:21 01/12/20 20 01/12/2020 CMP, serum or plasm a carbon dioxide 28 mmol/ L 20-32 normal Not Available [facility] [address] [place] [address], [address], 01/12/2020 09:32:21 01/12/20 20 01/12/2020 CMP, serum or plasm a anion gap 8 (calc ) 7-25 normal Not Available [facility] [address] [place] [address], [address], 01/12/2020 09:32:21 01/12/2001/12/2020 CMP, serum or plasm a calcium 9.1 mg/dL 8.6-10 .2 normal Not Available [facility] [address] [place] [address], [address], 01/12/2020 09:32:21 01/12/20 20 01/12/2020 CMP, serum or plasm a total protein 6.7 g/dL 6.4-8. 3 normal Not Available [facility] [address] [place] [address], [address], 01/12/2020 09:32:21 01/12/2001/12/2020 CMP, serum or plasm a albumin 4.1 g/dL 3.5-5. 2 normal Not Available [facility] [address] [place] [address], [address], 01/12/2020 09:32:21 01/12/2001/12/2020 CMP, serum or plasm a globulin 2.6 g/dL_ (calc ) 1.5-4. 5 normal Not Available [facility] [address] [place] [address], [address], 01/12/2020 09:32:21 01/12/2001/12/2020 CMP, serum or plasm a albumin/glob ulin ratio 1.6 (calc ) 1.1-2. 5 normal Not Available [facility] [address] [place] [address], [address], 01/12/2020 09:32:21 01/12/2001/12/2020 CMP, serum or plasm a bilirubin, total 0.3 mg/dL 0.1-1. 2 normal Not Available [facility] [address] [place] [address], [address], 01/12/2020 09:32:21 01/12/2001/12/2020 CMP, serum or plasm a alkaline phosphatase 58 U/L 35-105 normal Not Available [facility] [address] [place], [address], 01/12/2020 09:32:21 01/12/20 20 01/12/2020 CMP, serum or plasm a AST 20 U/L 0-32 normal Not Available [facility] [address] [place] [address], [address], 01/12/2020 09:32:21 01/12/20 20 01/12/2020 CMP, serum or plasm a ALT 12 U/L 0-33 normal Not Available [facility] [address] [place] [address], [address], 01/12/2020 09:32:21 01/12/20 20 01/12/2020 CMP, serum or plasm a GFR 87 >= 60 normal Not Available [facility] [address] [place], [address], 01/12/2020 09:32:21 01/12/2001/12/2020 CMP, serum or plasm [...] month s or longe r. Not Available [facility] [place], [address], 01/12/2020 09:32:21 01/12/20 20 01/12/2020 CBC w/ auto diff white blood cells 5.1 K/uL 3.8-10 .8 normal Not Available [facility] [address] [place] [address], [address], 01/12/2020 09:07:06 01/12/20 20 01/12/2020 CBC w/ auto diff red blood cells 4.59 M/uL 3.80-5 .20 normal Not Available [facility] [address] [place] [address], [address], 01/12/2020 09:07:06 01/12/20 20 01/12/2020 CBC w/ auto diff hemoglobin 13.3 g/dL 12.0-1 6.0 normal Not Available [facility] [address] [place] [address], [address], 01/12/2020 09:07:06 01/12/2001/12/2020 CBC w/ auto diff hematocrit 39.6 % 35.0-4 7.0 normal Not Available [facility] [address] [place] [address], [address], 01/12/2020 09:07:06 01/12/2001/12/2020 CBC w/ auto diff MCV 86 fL 80-100 normal Not Available [facility] [address] [place] [address], [address], 01/12/2020 09:07:06 01/12/2001/12/2020 CBC w/ auto diff MCH 29 pg 26-35 normal Not Available [facility] [address] [place] [address], [address], 01/12/2020 09:07:06 01/12/2001/12/2020 CBC w/ auto diff MCHC 34 g/dL 32-36 normal Not Available [facility] [address] [place] [address], [address], 01/12/2020 09:07:06 01/12/2001/12/2020 CBC w/ auto diff RDW 14.5 % 11.0-1 5.0 normal Not Available [facility] [address] [place] [address], [address], 01/12/2020 09:07:06 01/12/20 20 01/12/2020 CBC w/ auto diff MPV 7.5 fL 6.2-10 .5 normal Not Available [facility] [address] [place] [address], [address], 01/12/2020 09:07:06 01/12/20 20 01/12/2020 CBC w/ auto diff platelet count 268 K/uL 130-40 0 normal Not Available [facility] [address] [place] [address], [address], 01/12/2020 09:07:06 01/12/20 20 01/12/2020 CBC w/ auto diff neutrophil,a bsolute 2.3 K/uL 1.6-8. 4 normal Not Available [facility] [address] [place] [address], [address], 01/12/2020 09:07:06 01/12/20 20 01/12/2020 CBC w/ auto diff lymphocyte,a bsolute 2.1 K/uL 0.4-5. 1 normal Not Available [facility] [address] [place] [address], [address], 01/12/2020 09:07:06 01/12/20 20 01/12/2020 CBC w/ auto diff monocyte,abs olute 0.4 K/uL 0.0-1. 2 normal Not Available [facility] [address] [place] [address], [address], 01/12/2020 09:07:06 01/12/20 20 01/12/2020 CBC w/ auto diff eosinophil,a bsolute 0.2 K/uL 0.0-0. 8 normal Not Available [facility] [address] [place] [address], [address], 01/12/2020 09:07:06 01/12/20 20 01/12/2020 CBC w/ auto diff basophil,abs olute 0.1 K/uL 0.0-0. 3 normal Not Available [facility] [address] [place] [address], [address], 01/12/2020 09:07:06 01/12/20 20 01/12/2020 CBC w/ auto diff % neutrophils 44.0 % 42.0-7 8.0 normal Not Available [facility] [address] [place] [address], [address], 01/12/2020 09:07:06 01/12/20 20 01/12/2020 CBC w/ auto diff % lymphocytes 41.2 % 11.0-4 7.0 normal Not Available [facility] [address] [place] [address], [address], 01/12/2020 09:07:06 01/12/2001/12/2020 CBC w/ auto diff % monocytes 8.1 % 0.0-11 .0 normal Not Available [facility] [address] [place] [address], [address], 01/12/2020 09:07:06 01/12/20 20 01/12/2020 CBC w/ auto diff % eosinophils 4.3 % 0.0-7. 0 normal Not Available [facility] [address] [place] [address], [address], 01/12/2020 09:07:06 01/12/2001/12/2020 CBC w/ auto diff % basophils 2.4 % 0.0-3. 0 normal Not Available [facility] [address] [place] [address], [address], 01/12/2020 09:07:06 01/12/2001/12/2020 CBC w/ auto diff nucleated red cells 0.0 % 0.0-0. 9 normal Not Available [facility] [address] [place] [address], [address], 01/12/2020 09:07:06 01/12/20 20 01/12/2020 CBC w/ auto diff nucleated RBCs, absolute 0.00 K/uL not estab. normal Not Available [facility] [address] [place] [address], [address], 01/12/2020 09:07:06 01/04/20 22 01/03/2022 LIPID PROFI LE HDL cholesterol 63 mg/dL 50-242 normal Not Available [facility] [address] [place] [address], [address], 01/03/2022 09:58:11 01/04/20 22 01/03/2022 LIPID PROFI LE triglyceride s 162 mg/dL 0-149 high TRIGL YCERI DE RANGE S SUSI L: < 150 BORDE RLINE HIGH: 150 - 199 HIGH: 200 - 499 VERY HIGH: > OR = 500 Not Available [facility] [address] [place] [address], [address], 01/03/2022 09:58:11 01/04/20 22 01/03/2022 LIPID PROFI LE cholesterol 264 mg/dL 0-199 high ELVA STERO L (TOTA L) RANGE S WU ABLE: < 200 BORDE RLINE : 200 - 239 HIGHE R RISK: > 239 Not Available [facility] [address] [place] [address], [address], 01/03/2022 09:58:11 01/04/20 22 01/03/2022 LIPID PROFI LE LDL cholesterol 169 mg/dL _(diaz c) 0-99 high LDL ELVA STERO L RANGE S OPTIM AL: < 100 NEAR/ ABOVE OPTIM AL: 100 - 129 BORDE RLINE HIGH: 130 - 159 HIGH: 160 - 189 VERY HIGH: > OR = 190 Not Available [facility] [address] [place] [address], [address], 01/03/2022 09:58:11 01/04/20 22 01/03/2022 COMP. METAB OLIC PANEL glucose 108 mg/dL 74-100 high Not Available [facility] [address] [place] [address], [address], 01/03/2022 09:58:10 01/04/20 22 01/03/2022 COMP. METAB OLIC PANEL blood urea nitrogen 8 mg/dL 6-20 normal Not Available [facility] [address] [place] [address], [address], 01/03/2022 09:58:10 01/04/20 22 01/03/2022 COMP. METAB OLIC PANEL creatinine 0.91 mg/dL 0.50-0 .95 normal Not Available [facility] [address] [place] [address], [address], 01/03/2022 09:58:10 01/04/20 22 01/03/2022 COMP. METAB OLIC PANEL BUN/creatini ne ratio 9 (calc ) 10-20 low Not Available [facility] [address] [place] [address], [address], 01/03/2022 09:58:10 01/04/20 22 01/03/2022 COMP. METAB OLIC PANEL sodium 139 mmol/ L 136-14 5 normal Not Available [facility] [address] [place] [address], [address], 01/03/2022 09:58:10 01/04/20 22 01/03/2022 COMP. METAB OLIC PANEL potassium 4.5 mmol/ L 3.4-5. 0 normal Not Available [facility] [address] [place] [address], [address], 01/03/2022 09:58:10 01/04/20 22 01/03/2022 COMP. METAB OLIC PANEL chloride 100 mmol/ L 98-107 normal Not Available [facility] [address] [place] [address], [address], 01/03/2022 09:58:10 01/04/20 22 01/03/2022 COMP. METAB OLIC PANEL carbon dioxide 28 mmol/ L 22-31 normal Not Available [facility] [address] [place] [address], [address], 01/03/2022 09:58:10 01/04/20 22 01/03/2022 COMP. METAB OLIC PANEL anion gap 11 (calc ) 7-25 normal Not Available [facility] [address] [place] [address], [address], 01/03/2022 09:58:10 01/04/20 22 01/03/2022 COMP. METAB OLIC PANEL calcium 9.8 mg/dL 8.6-10 .2 normal Not Available [facility] [address] [place] [address], [address], 01/03/2022 09:58:10 01/04/20 22 01/03/2022 COMP. METAB OLIC PANEL total protein 7.9 g/dL 6.4-8. 3 normal Not Available [facility] [address] [place] [address], [address], 01/03/2022 09:58:10 01/04/20 22 01/03/2022 COMP. METAB OLIC PANEL albumin 4.4 g/dL 3.5-5. 2 normal Not Available [facility] [address] [place] [address], [address], 01/03/2022 09:58:10 01/04/20 22 01/03/2022 COMP. METAB OLIC PANEL globulin 3.5 g/dL_ (calc ) 1.5-4. 5 normal Not Available [facility] [address] [place] [address], [address], 01/03/2022 09:58:10 01/04/20 22 01/03/2022 COMP. METAB OLIC PANEL albumin/glob ulin ratio 1.3 (calc ) 1.1-2. 5 normal Not Available [facility] [address] [place] [address], [address], 01/03/2022 09:58:10 01/04/20 22 01/03/2022 COMP. METAB OLIC PANEL bilirubin, total 0.5 mg/dL 0.1-1. 2 normal Not Available [facility] [address] [place], [address], 01/03/2022 09:58:10 01/04/20 22 01/03/2022 COMP. METAB OLIC PANEL alkaline phosphatase 73 U/L 30-121 normal Not Available [facility] [address] [place], [address], 01/03/2022 09:58:10 01/04/20 22 01/03/2022 COMP. METAB OLIC PANEL AST 25 U/L 0-32 normal Not Available [facility] [address] [place], [address], 01/03/2022 09:58:10 01/04/20 22 01/03/2022 COMP. METAB OLIC PANEL ALT 17 U/L 0-33 normal Not Available [facility] [address] [place], [address], 01/03/2022 09:58:10 01/04/20 22 01/03/2022 COMP. METAB OLIC PANEL GFR 73 >= 60 normal NOT E New calcu latio n for GFR (CKD- EPI 2020) is formu lated witho ut race adjus tment facto rs at the recom menda tion of the [facility] . This calcu latio n has not been valid ated in pregn ant women . For pedia tric patie nts refer to https ://leona abrams.britta loja.o rg/pr jamila burden s/KDO QI/gf r_cal culat orPed Not Available [facility] [address] [place], [address], 01/03/2022 09:58:10 01/04/20 22 01/03/2022 COMPL ETE BLOOD COUNT white blood cells 6.9 K/uL 3.8-10 .8 normal Not Available [facility] [address] [place], [address], 01/03/2022 09:22:33 01/04/20 22 01/03/2022 COMPL ETE BLOOD COUNT red blood cells 4.85 M/uL 3.80-5 .20 normal Not Available [facility] [address] [place] [address], [address], 01/03/2022 09:22:33 01/04/20 22 01/03/2022 COMPL ETE BLOOD COUNT hemoglobin 13.6 g/dL 12.0-1 6.0 normal Not Available [facility] [address] [place] [address], [address], 01/03/2022 09:22:33 01/04/20 22 01/03/2022 COMPL ETE BLOOD COUNT hematocrit 40.8 % 35.0-4 7.0 normal Not Available [facility] [address] [place] [address], [address], 01/03/2022 09:22:33 01/04/20 22 01/03/2022 COMPL ETE BLOOD COUNT MCV 84 fL 80-100 normal Not Available [facility] [address] [place] [address], [address], 01/03/2022 09:22:33 01/04/20 22 01/03/2022 COMPL ETE BLOOD COUNT MCH 28 pg 26-35 normal Not Available [facility] [address] [place] [address], [address], 01/03/2022 09:22:33 01/04/2001/03/2022 COMPL ETE BLOOD COUNT MCHC 33 g/dL 32-36 normal Not Available [facility] [address] [place] [address], [address], 01/03/2022 09:22:33 01/04/20 22 01/03/2022 COMPL ETE BLOOD COUNT RDW 15.1 % 11.0-1 5.0 high Not Available [facility] [address] [place] [address], [address], 01/03/2022 09:22:33 01/04/20 22 01/03/2022 COMPL ETE BLOOD COUNT MPV 7.1 fL 6.2-10 .5 normal Not Available [facility] [address] [place] [address], [address], 01/03/2022 09:22:33 01/04/20 22 01/03/2022 COMPL ETE BLOOD COUNT platelet count 328 K/uL 130-40 0 normal Not Available [facility] [address] [place] [address], [address], 01/03/2022 09:22:33 01/04/20 22 01/03/2022 COMPL ETE BLOOD COUNT neutrophil,a bsolute 2.9 K/uL 1.6-8. 4 normal Not Available [facility] [address] [place] [address], [address], 01/03/2022 09:22:33 01/04/20 22 01/03/2022 COMPL ETE BLOOD COUNT lymphocyte,a bsolute 3.0 K/uL 0.4-5. 1 normal Not Available [facility] [address] [place] [address], [address], 01/03/2022 09:22:33 01/04/20 22 01/03/2022 COMPL ETE BLOOD COUNT monocyte,abs olute 0.7 K/uL 0.0-1. 2 normal Not Available [facility] [address] [place] [address], [address], 01/03/2022 09:22:33 01/04/20 22 01/03/2022 COMPL ETE BLOOD COUNT eosinophil,a bsolute 0.2 K/uL 0.0-0. 8 normal Not Available [facility] [address] [place] [address], [address], 01/03/2022 09:22:33 01/04/20 22 01/03/2022 COMPL ETE BLOOD COUNT basophil,abs olute 0.1 K/uL 0.0-0. 3 normal Not Available [facility] [address] [place] [address], [address], 01/03/2022 09:22:33 01/04/2001/03/2022 COMPL ETE BLOOD COUNT % neutrophils 42.0 % 42.0-7 8.0 normal Not Available [facility] [address] [place] [address], [address], 01/03/2022 09:22:33 01/04/20 22 01/03/2022 COMPL ETE BLOOD COUNT % lymphocytes 42.8 % 11.0-4 7.0 normal Not Available [facility] [address] [place] [address], [address], 01/03/2022 09:22:33 01/04/20 22 01/03/2022 COMPL ETE BLOOD COUNT % monocytes 10.6 % 0.0-11 .0 normal Not Available [facility] [address] [place] [address], [address], 01/03/2022 09:22:33 01/04/2001/03/2022 COMPL ETE BLOOD COUNT % eosinophils 3.5 % 0.0-7. 0 normal Not Available [facility] [address] [place] [address], [address], 01/03/2022 09:22:33 01/04/2001/03/2022 COMPL ETE BLOOD COUNT % basophils 1.1 % 0.0-3. 0 normal Not Available [facility] [address] [place] [address], [address], 01/03/2022 09:22:33 01/04/2001/03/2022 COMPL ETE BLOOD COUNT nucleated red cells 0.0 % 0.0-0. 9 normal Not Available [facility] [address] [place] [address], [address], 01/03/2022 09:22:33 09/01/03/2022 COMPL ETE BLOOD COUNT nucleated RBCs, absolute 0.00 K/uL not estab. normal Not Available [facility] [address] [place], [address], 01/03/2022 09:22:33 05/09/19 18 05/07/2017 MAMMO , scree mary beth, tomos ynthe sis, bilat eral, w/ CAD No observ ation record ed. [facility] Not Available 2017 17:58:15 05/13/19 19 05/11/2018 MAMMO , scree mary beth, tomos ynthe sis, bilat eral, w/ CAD No observ ation record ed. [facility] [address] [place] [address], [id number], 05/13/2018 14:48:29 02/13/20 19 02/11/2019 audio gram No observ ation record ed. BAR[facility] Not Available 2018 09:39:21 Result Notes None recorded. 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 Procedures Surgical History Date Name Laterality Status Provider Name and Address Organization Details Recorded Time 02/12/20 19 Tympanogram completed SHELBY DANIELS [address] [place], [address], [facility] 02/11/2019 14:55:15 02/12/20 19 Audiogram completed ALEJO PRICE AUD [address] [place], [address], [facility] 02/11/2019 14:55:13 Appendectomy completed Reji Bailey [facility] 01/01/2017 10:01:29 Cholecystectomy completed Reji Vizuete-Ort [facility] 01/01/2017 10:01:43 Partial hysterectomy completed Reji Vizuete-Ort [facility] 01/01/2017 10:01:54 ligation of fallopian tube completed [facility] 02/11/2019 13:57:51 Cholecystectomy completed [facility] 02/11/2019 13:58:07 colonoscopy completed [facility] 02/11/2019 13:58:31 procedure on neck completed [facility] 02/11/2019 13:58:49 Imaging Results Imaging Date Name Status LastModified by Organiz ation Details LastModified Time 05/07/2017 MAMMO, screening, tomosynthesis, bilateral, w/ CAD completed [facility] Information not available 01/11/2018 17:58:15 05/11/2018 MAMMO, screening, tomosynthesis, bilateral, w/ CAD completed [facility] [address] [place] [address], [id number], 05/13/2018 14:48:29 02/11/2019 audiogram completed [facility] Information no t available 02/12/2019 09:39:21 Procedure Notes None recorded. Medical Equipment None Reported. Allergies Allergen ID Allergen Name Allergen Category Reaction Reaction Severity Criticality Documentation Date Start Date Code Code System Note Provider Name and Address Organization Details Recorded Time 909933 hydrocodo ne bitartrat e medicatio n Not available Not available Not available 03/14/20162006 65261 9 RxNorm Comme nt: Creat ed By: Rodrigo Jarrett ie;Cr eated Date: 007 10:03 :41 AM; Not Available [facility] 6 10:54:39 [id number] Prilosec medicatio n Not available Not available Not available 03/15/20162015 18793 5 RxNorm Comme nt: Creat ed By: Constance on Madina ;Crea arturo Date: 2015 10:06 :30 AM; Not Available [facility] 6 03:55:25 [id number] Xarelto medicatio n Not available Not available Not available 03/15/20162015 04197 99 RxNorm Comme nt: Creat ed By: Constance ysabel morris Date: 2015 10:05 :15 AM; Not Available [facility] 6 07:45:15 [id number] Calan medicatio n Not available Not available Not available 03/15/20162006 93570 0 RxNorm Comme nt: Creat ed By: Rodrigo massey;Andres eated Date: 007 10:04 :01 AM; Not Available [facility] 6 08:39:26 Medications Name Sig Start Date Stop Date Status Note LastModified by Organization Details LastModified Time Toprol XL 100 mg tablet,ext ended release Daily active Frequency: daily;Medi cation Descriptio n: metoprolol succinate; Dosage:1; Route:oral ; refills:0 Not Available Not Available Not Available [employer] 10 mg disintegra ting tablet Take 1 [...] Updated DateTime 7 165.1 cm 45.7 kg/m2 507329. 18 g 97.5 [degF] 66 /min 131 mm[Hg] 86 mm[Hg] Reji BarreraO rtiz [facility] 7 10:05:00 Date Recorded Pain severity - 0-10 verbal numeric rating [Score] - Reported Provider Name and Address Organization Details Last Updated DateTime 01/01/2017 0 Not Available [facility] 8 10:32:16 Date Recorded Body height Body mass index (BMI) Body weight Body temperature Heart rate Heart rate Systolic blood pressure Diastolic blood pressure Systolic blood pressure Diastolic blood pressure Provider Name and Address Organization Details Last Updated DateTime 8 165.1 cm 47 kg/m2 262166. 84 g 97.5 [degF] 65 /min 65 /min 136 mm[Hg] 102 mm[Hg] 121 mm[Hg] 70 mm[Hg] Luis Enrique Valle [facility] 8 09:27:26 Date Recorded Body weight Body mass index (BMI) Body height Body temperature Heart rate Systolic blood pressure Diastolic blood pressure Provider Name and Address Organization Details Last Updated DateTime 9 209152. 9 g 45.8 kg/m2 165.1 cm 96.5 [degF] 83 /min 142 mm[Hg] 87 mm[Hg] Sanjuanita Wallace [facility] 9 14:22:22 Social History Question Answer Notes LastModified by Organizat ion Details LastModified Time Tobacco Smoking Status Never Smoker [email or web address] 01/01/2017 10:02:11 What Is Your Level Of Alcohol Consumption? None [email or web address] Information not available 01/01/2017 Live Alone Or With Others? With Others [email or web address] Information not available 01/01/2017 Marital Status [email or web address] Informatio n not available 01/01/2017 What Was The Date Of Your Most Recent Tobacco Screening? 01/07/2018 Information not available 06/08/2019 Has Tobacco Cessation Counseling Been Provided? No [email or web address] Information not available 01/01/2017 Sex: Female Functional Status None recorded. Mental Status None recorded. Family History Relationship Description Onset Age of this Age Resolved Age Notes LastModified by Organization Details LastModified Time Mother Diabetes mellitus [email or web address] Not available 2016 09:59:31 Mother Family history of malignant neoplasm Not available 2016 09:59:47 Mother Heart disease [email or web address] Not available 2016 10:00:30 Mother Hyperlipidem ia [email or web address] Not available 2016 10:00:43 Mother Hypertensive disorder [email or web address] Not available 2016 10:00:58 Mother Asthma [email or web address] Not available 02/11/2019 13:56:11 Maternal Grandfather Family history of malignant neoplasm [email or web address] Not available 2016 09:59:47 Maternal Grandmother Family history of stroke [email or web address] Not available 2016 10:00:05 Father Heart disease [email or web address] Not available 2016 10:00:30 Sister Hypertensive disorder Not available 2016 10:00:58 Sister Disorder of thyroid gland [email or web address] Not available 02/11 13:55:10 Medical History Condition Response Cancer Y Blood Transfusion Y Gynecological HistoryNo gynecological history recorded. Obstetrics History GPAL:G 0 P 0 0 0 0 Past Encounters Encounter ID Performer Location Encounter Start Date Encounter Closed Date Diagnosis/Indication Diagnosis SNOMED-CT Code Diagnosis ICD10 Code Diagnosis Note [id number] SUSANNAH BALLARD MD [facility] [address],[facility] [address] [place] [address] 01/01/2017 09:05:16 01/01/2017 11:50:36 Blood coagulation disorder 27238375 D68.59 History of non-Hodgkins lymphoma 532807156 Z85.72 [id number] SUSANNAH BALLARD MD [facility] [address],[facility] [address] [place] [address] 01/07/2018 08:49:47 01/07/2018 10:46:01 Non-Hodgkin's lymphoma (clinical) 684930085 C85.80 E78.5 Blood coag ulation disorder 47693846 D68.59 Morbid obesity 082945822 E66.01 [id number] SUSANNAH BALLARD MD [facility] [address] [place] [address] 01/11/2019 08:55:10 01/11/2019 11:07:29 [id number] MILKA WALKER MD [place] [facility] [address] [place] [address] 02/11/2019 13:30:03 02/11/2019 15:57:14 Dysfunction of bilateral eustachian tubes 9227502702 081181 H69.93 Dizziness 861157505 R42 Nausea 769500432 R11.0 Migraine with aura 22021 06 G43.109 -hx Migraine 36667970 G43.90 9 vestibular [id number] SHELBY DANIELS [place] [facility] [address] [place] [address] 02/11/2019 14:39:21 02/11/2019 15:44:54 Dysfunction of bilateral eustachian tubes 4612297343 437738 H69.93 [id number] SUSANNAH BALLARD MD [facility] [address] [place] [address] 01/12/2020 09:03:57 01/12/2020 11:16:40 [id number] SUSANNAH BALLARD MD [facility] [address] [place] [address] 01/10/2021 09:05:14 01/10/2021 12:50:40 [id number] SUSANNAH BALLARD MD [facility] [address] [place] [address] 01/03/2022 09:08:05 01/03/2022 11:54:52 Health Concerns Section Related Observation LastModified by Organization Detai ls LastModified Time None Recorded Concern Status LastModified by Organization Details LastModified Time None Recorded Advance Directives Directive None Recorded Payers Insurance Date Sequence Insurance Name Policy Number Policy Lynn Covered Member ID Lynn Member ID Guarantor Name 01/15/2022 2 [facility] [employer] - MULTIPLAN (PPO) Jessica Odell [id number] Jessica Odell 01/11/2022 2 [facility] [employer] - MULTIPLAN (PPO) Jessica Odell [id number] Jessica Odell 01/10/2022 1 [facility] (MEDICAID HMO) Jessica Odell [id number] Jessica Odell 01/10/2022 GENERIC INSURANC E - MOVED-HOLD Jessica Odell 08/23/2021 1 [place] [id number] Oskar Odell [id number] Jessica Odell Notes Date Note Type Note Provider Name and Address Organization Details Recorded Time 01/01/2017 text/html Ms. 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 She had 8 cycles of ProMACE-CytaBom chemotherapy, followed by thoracic radiation. Other medical history is significant for anti-thrombin III deficiency, DVT and PE in 2013, continuing on Coumadin, hysterectomy with incidental appendectomy in 1997, arthritis and obesity. SUSANNAH BALLARD MD [address] [place] [address], [phone], [facility] 02/16/2017 21:48:36 01/07/2018 text/html Ms. 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 She had 8 cycles of ProMACE-CytaBom chemotherapy, followed by thoracic radiation. Other medical history is significant for anti-thrombin III deficiency, DVT and PE in 2013, continuing on Coumadin, hysterectomy with incidental appendectomy in 1997, arthritis and obesity. SUSANNAH BALLARD MD [address] [place] [address], [phone], [facility] 01/11/2018 18:00:27 02/11/2019 text/html Jessica is a [...] sensitive to certain scents. MILKA WALKER MD [facility] [place], [address], [facility] 02/11/2019 18:17:57 OBGyn Episode No OBEpisode recorded.
[2024-08-27 09:52] LABS: PHA INR Fingerstick 2.4 (0.9-1.1)
== END 2024-08-27 09:53 ==
LOC: ACC 09:23
PROVIDERS: PCP Internal Medicine; Visit Provider Internal Medicine
DX: Z79.01 Long term (current) use of anticoagulants (principal); Z86.718 Personal history of other venous thrombosis and embolism
CPT/HCPCS: 85610; 99211; G0463

== ENCOUNTER 2024-10-08 09:02 | Outpatient (CLI) | payer OTHER, SELFPAY ==
--- OUTSIDE RECORDS SUMMARY | 2024-10-08 09:04 | XMS_ITS | Data Portability ---
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 Patient Instructions Encounter Date Encounter Id Patient Instructions Last Modified By Organization Details Last Modified Time 01/01/2017 [id number] learning about healthy weight IRVING Not available 02/17/2017 11:11:29 01/07/2018 [id number] non-hodgkin lymphoma: care instructions sliddle Not available 01/07/2018 10:31:08 When You Want to Lose Weight: Care Instructions sliddle Not available 01/07/2018 10:31:28 02/11/2019 [id number] nausea and vomiting: care instructions gosetinsky Not [...] 4.8 K/uL 3.8-10 .8 normal Not Available [facility] [address] [place] [address], [phone], 01/01/2017 09:35:48 01/02/2001/01/2017 CBC w/ auto diff red blood cells 4.85 M/uL 3.80-5 .20 normal Not Available [facility] [address] [place], [address], 01/01/2017 09:35:48 01/02/20 17 01/01/2017 CBC w/ auto diff hemoglobin 13.6 g/dL 12.0-1 6.0 normal Not Available [facility] [address] [place] [address], [address], 01/01/2017 09:35:48 01/02/2001/01/2017 CBC w/ auto diff hematocrit 41.4 % 35.0-4 7.0 normal Not Available [facility] [address] [place] [address], [address], 01/01/2017 09:35:48 01/02/2001/01/2017 CBC w/ auto diff MCV 85 fL 80-100 normal Not Available [facility] [address] [place] [address], [address], 01/01/2017 09:35:48 01/02/2001/01/2017 CBC w/ auto diff MCH 28 pg 26-35 normal Not Available [facility] [address] [place] [address], [address], 01/01/2017 09:35:48 01/02/2001/01/2017 CBC w/ auto diff MCHC 33 g/dL 32-36 normal Not Available [facility] [address] [place] [address], [address], 01/01/2017 09:35:48 01/02/2001/01/2017 CBC w/ auto diff RDW 14.6 % 11.0-1 5.0 normal Not Available [facility] [address] [place] [address], [address], 01/01/2017 09:35:48 01/02/2001/01/2017 CBC w/ auto diff MPV 7.5 fL 6.2-10 .5 normal Not Available [facility] [address] [place] [address], [address], 01/01/2017 09:35:48 01/02/2001/01/2017 CBC w/ auto diff platelet count 239 K/uL 130-40 0 normal Not Available [facility] [address] [place] [address], [address], 01/01/2017 09:35:48 01/02/2001/01/2017 CBC w/ auto diff neutrophil,a bsolute 1.9 K/uL 1.6-8. 4 normal Not Available [facility] [address] [place], [address], 01/01/2017 09:35:48 01/02/2001/01/2017 CBC w/ auto diff lymphocyte,a bsolute 2.2 K/uL 0.4-5. 1 normal Not Available [facility] [address] [place] [address], [address], 01/01/2017 09:35:48 01/02/2001/01/2017 CBC w/ auto diff monocyte,abs olute 0.4 K/uL 0.0-1. 2 normal Not Available [facility] [address] [place] [address], [address], 01/01/2017 09:35:48 01/02/2001/01/2017 CBC w/ auto diff eosinophil,a bsolute 0.2 K/uL 0.0-0. 8 normal Not Available [facility] [address] [place] [address], [address], 01/01/2017 09:35:48 01/02/2001/01/2017 CBC w/ auto diff basophil,abs olute 0.0 K/uL 0.0-0. 3 normal Not Available [facility] [address] [place] [address], [address], 01/01/2017 09:35:48 01/02/2001/01/2017 CBC w/ auto diff % neutrophils 40.6 % 42.0-7 8.0 low Not Available [facility] [address] [place] [address], [address], 01/01/2017 09:35:48 01/02/2001/01/2017 CBC w/ auto diff % lymphocytes 45.6 % 11.0-4 7.0 normal Not Available [facility] [address] [place] [address], [address], 01/01/2017 09:35:48 01/02/2001/01/2017 CBC w/ auto diff % monocytes 8.8 % 0.0-11 .0 normal Not Available [facility] [address] [place] [address], [address], 01/01/2017 09:35:48 01/02/2001/01/2017 CBC w/ auto diff % eosinophils 4.0 % 0.0-7. 0 normal Not Available [facility] [address] [place] [address], [address], 01/01/2017 09:35:48 01/02/2001/01/2017 CBC w/ auto diff % basophils 1.0 % 0.0-3. 0 normal Not Available [facility] [address] [place] [address], [address], 01/01/2017 09:35:48 01/02/2001/01/2017 CBC w/ auto diff nucleated red cells 0.2 % 0.0-0. 9 normal Not Available [facility] [address] [place] [address], [address], 01/01/2017 09:35:48 01/02/2001/01/2017 CBC w/ auto diff nucleated RBCs, absolute 0.01 K/uL not estab. normal Not Available [facility] [address] [place] [address], [address], 01/01/2017 09:35:48 01/02/2001/01/2017 CMP, serum or plasm a glucose 95 mg/dL 74-100 normal Not Available [facility] [address] [place] [address], [address], 01/01/2017 10:04:58 01/02/2001/01/2017 CMP, serum or plasm a blood urea nitrogen 10 mg/dL 6-20 normal Not Available [facility] [address] [place] [address], [address], 01/01/2017 10:04:58 01/02/2001/0101/01/2017 CMP, serum or plasm a creatinine 0.81 mg/dL 0.50-0 .95 normal Not Available [facility] [address] [place] [address], [address], 01/01/2017 10:04:58 01/02/20 17 01/01/2017 CMP, serum or plasm a BUN/creatini ne ratio 12 (calc ) 10-20 normal Not Available [facility] [address] [place] [address], [address], 01/01/2017 10:04:58 01/02/20 17 01/01/2017 CMP, serum or plasm a GFR 96 >= 60 normal Not Available [facility] [address] [place] [address], [address], 01/01/2017 10:04:58 01/02/20 17 01/01/2017 CMP, serum [...] s or longe r. . Not Available [facility] [address] [place], [address], 01/01/2017 10:04:58 01/02/20 17 01/01/2017 CMP, serum or plasm a sodium 138 mmol/ L 136-14 5 normal Not Available [facility] [address] [place] [address], [address], 01/01/2017 10:04:58 01/02/20 17 01/01/2017 CMP, serum or plasm a potassium 4.2 mmol/ L 3.4-5. 0 normal Not Available [facility] [address] [place], [address], 01/01/2017 10:04:58 01/02/20 17 01/01/2017 CMP, serum or plasm a chloride 101 mmol/ L 98-107 normal Not Available [facility] [address] [place] [address], [address], 01/01/2017 10:04:58 01/02/20 17 01/01/2017 CMP, serum or plasm a carbon dioxide 22 mmol/ L 20-32 normal Not Available [facility] [address] [place] [address], [address], 01/01/2017 10:04:58 01/02/20 17 01/01/2017 CMP, serum or plasm a anion gap 15 (calc ) 7-25 normal Not Available [facility] [address] [place] [address], [address], 01/01/2017 10:04:58 01/02/20 17 01/01/2017 CMP, serum or plasm a calcium 8.9 mg/dL 8.6-10 .2 normal Not Available [facility] [address] [place] [address], [address], 01/01/2017 10:04:58 01/02/20 17 01/01/2017 CMP, serum or plasm a total protein 7.3 g/dL 6.4-8. 3 normal Not Available [facility] [address] [place] [address], [address], 01/01/2017 10:04:58 01/02/20 17 01/01/2017 CMP, serum or plasm a albumin 3.9 g/dL 3.5-5. 2 normal Not Available [facility] [address] [place] [address], [address], 01/01/2017 10:04:58 01/02/20 17 01/01/2017 CMP, serum or plasm a globulin 3.4 g/dL_ (calc ) 1.5-4. 5 normal Not Available [facility] [address] [place] [address], [address], 01/01/2017 10:04:58 01/02/20 17 01/01/2017 CMP, serum or plasm a albumin/glob ulin ratio 1.1 (calc ) 1.1-2. 5 normal Not Available [facility] [address] [place] [address], [address], 01/01/2017 10:04:58 01/02/20 17 01/01/2017 CMP, serum or plasm a bilirubin, total 0.5 mg/dL 0.1-1. 2 normal Not Available [facility] [address] [place] [address], [address], 01/01/2017 10:04:58 01/02/20 17 01/01/2017 CMP, serum or plasm a alkaline phosphatase 61 U/L 35-105 normal Not Available [facility] [address] [place] [address], [address], 01/01/2017 10:04:58 01/02/20 17 01/01/2017 CMP, serum or plasm a AST 23 U/L 0-32 normal Not Available [facility] [address] [place] [address], [address], 01/01/2017 10:04:58 01/02/20 17 01/01/2017 CMP, serum or plasm a ALT 14 U/L 0-33 normal Not Available [facility] [address] [place] [address], [address], 01/01/2017 10:04:58 01/02/20 17 01/01/2017 lipid panel , serum HDL cholesterol 65 mg/dL 66-242 low Not Available [facility] [address] [place] [address], [address], 01/01/2017 10:05:00 01/02/20 17 01/01/2017 lipid panel , serum triglyceride s 131 mg/dL 0-149 normal TRIGL YCERI DE RANGE S SUSI L: < 150 BORDE RLINE HIGH: 150 - 199 HIGH: 200 - 499 VERY HIGH: > OR = 500 Not Available [facility] [address] [place] [address], [address], 01/01/2017 10:05:00 01/02/20 17 01/01/2017 lipid panel , serum cholesterol 223 mg/dL 0-199 high ELVA STERO L (TOTA L) RANGE S WU ABLE: < 200 BORDE RLINE : 200 - 239 HIGHE R RISK: > 239 Not Available [facility] [address] [place] [address], [address], 01/01/2017 10:05:00 01/02/20 17 01/01/2017 lipid panel , serum LDL cholesterol 132 mg/dL _(diaz c) 0-99 high LDL ELVA STERO L RANGE S OPTIM AL: < 100 NEAR/ ABOVE OPTIM AL: 100 - 129 BORDE RLINE HIGH: 130 - 159 HIGH: 160 - 189 VERY HIGH: > OR = 190 Not Available [facility] [address] [place] [address], [address], 01/01/2017 10:05:00 01/08/20 18 01/07/2018 CBC w/ auto diff white blood cells 4.8 K/uL 3.8-10 .8 normal Not Available [facility] [address] [place] [address], [address], 01/07/2018 09:32:31 01/08/20 18 01/07/2018 CBC w/ auto diff red blood cells 4.53 M/uL 3.80-5 .20 normal Not Available [facility] [address] [place] [address], [address], 01/07/2018 09:32:31 01/08/20 18 01/07/2018 CBC w/ auto diff hemoglobin 13.4 g/dL 12.0-1 6.0 normal Not Available [facility] [address] [place] [address], [address], 01/07/2018 09:32:31 01/08/20 18 01/07/2018 CBC w/ auto diff hematocrit 38.8 % 35.0-4 7.0 normal Not Available [facility] [address] [place], [address], 01/07/2018 09:32:31 01/08/20 18 01/07/2018 CBC w/ auto diff MCV 86 fL 80-100 normal Not Available [facility] [address] [place] [address], [address], 01/07/2018 09:32:31 01/08/20 18 01/07/2018 CBC w/ auto diff MCH 30 pg 26-35 normal Not Available [facility] [address] [place] [address], [address], 01/07/2018 09:32:31 01/08/20 18 01/07/2018 CBC w/ auto diff MCHC 34 g/dL 32-36 normal Not Available [facility] [address] [place] [address], [address], 01/07/2018 09:32:31 01/08/20 18 01/07/2018 CBC w/ auto diff RDW 14.3 % 11.0-1 5.0 normal Not Available [facility] [address] [place] [address], [address], 01/07/2018 09:32:31 01/08/20 18 01/07/2018 CBC w/ auto diff MPV 7.7 fL 6.2-10 .5 normal Not Available [facility] [address] [place] [address], [address], 01/07/2018 09:32:31 01/08/20 18 01/07/2018 CBC w/ auto diff platelet count 268 K/uL 130-40 0 normal Not Available [facility] [address] [place] [address], [address], 01/07/2018 09:32:31 01/08/20 18 01/07/2018 CBC w/ auto diff neutrophil,a bsolute 1.9 K/uL 1.6-8. 4 normal Not Available [facility] [address] [place] [address], [address], 01/07/2018 09:32:31 01/08/20 18 01/07/2018 CBC w/ auto diff lymphocyte,a bsolute 2.2 K/uL 0.4-5. 1 normal Not Available [facility] [address] [place] [address], [address], 01/07/2018 09:32:31 01/08/20 18 01/07/2018 CBC w/ auto diff monocyte,abs olute 0.5 K/uL 0.0-1. 2 normal Not Available [facility] [address] [place] [address], [address], 01/07/2018 09:32:31 01/08/20 18 01/07/2018 CBC w/ auto diff eosinophil,a bsolute 0.2 K/uL 0.0-0. 8 normal Not Available [facility] [address] [place] [address], [address], 01/07/2018 09:32:31 01/08/20 18 01/07/2018 CBC w/ auto diff basophil,abs olute 0.0 K/uL 0.0-0. 3 normal Not Available [facility] [address] [place] [address], [address], 01/07/2018 09:32:31 01/08/20 18 01/07/2018 CBC w/ auto diff % neutrophils 40.4 % 42.0-7 8.0 low Not Available [facility] [address] [place] [address], [address], 01/07/2018 09:32:31 01/08/20 18 01/07/2018 CBC w/ auto diff % lymphocytes 44.9 % 11.0-4 7.0 normal Not Available [facility] [address] [place] [address], [address], 01/07/2018 09:32:31 01/08/20 18 01/07/2018 CBC w/ auto diff % monocytes 10.6 % 0.0-11 .0 normal Not Available [facility] [address] [place] [address], [address], 01/07/2018 09:32:31 01/08/20 18 01/07/2018 CBC w/ auto diff % eosinophils 3.3 % 0.0-7. 0 normal Not Available [facility] [address] [place] [address], [address], 01/07/2018 09:32:31 01/08/20 18 01/07/2018 CBC w/ auto diff % basophils 0.8 % 0.0-3. 0 normal Not Available [facility] [address] [place] [address], [address], 01/07/2018 09:32:31 01/08/20 18 01/07/2018 CBC w/ auto diff nucleated red cells 0.2 % 0.0-0. 9 normal Not Available [facility] [address] [place] [address], [address], 01/07/2018 09:32:31 01/08/20 18 01/07/2018 CBC w/ auto diff nucleated RBCs, absolute 0.01 K/uL not estab. normal Not Available [facility] [address] [place] [address], [address], 01/07/2018 09:32:31 01/08/20 18 01/07/2018 CMP, serum or plasm a glucose 104 mg/dL 74-100 high Not Available [facility] [address] [place] [address], [address], 01/07/2018 09:55:17 01/08/20 18 01/07/2018 CMP, serum or plasm a blood urea nitrogen 9 mg/dL 6-20 normal Not Available [facility] [address] [place], [address], 01/07/2018 09:55:17 01/08/20 18 01/07/2018 CMP, serum or plasm a creatinine 0.85 mg/dL 0.50-0 .95 normal Not Available [facility] [address] [place] [address], [address], 01/07/2018 09:55:17 01/08/20 18 01/07/2018 CMP, serum or plasm a BUN/creatini ne ratio 11 (calc ) 10-20 normal Not Available [facility] [address] [place] [address], [address], 01/07/2018 09:55:17 01/08/20 18 01/07/2018 CMP, serum or plasm a sodium 138 mmol/ L 136-14 5 normal Not Available [facility] [address] [place] [address], [address], 01/07/2018 09:55:17 01/08/20 18 01/07/2018 CMP, serum or plasm a potassium 4.6 mmol/ L 3.4-5. 0 normal Not Available [facility] [address] [place] [address], [address], 01/07/2018 09:55:17 01/08/20 18 01/07/2018 CMP, serum or plasm a chloride 101 mmol/ L 98-107 normal Not Available [facility] [address] [place] [address], [address], 01/07/2018 09:55:17 01/08/20 18 01/07/2018 CMP, serum or plasm a carbon dioxide 29 mmol/ L 20-32 normal Not Available [facility] [address] [place] [address], [address], 01/07/2018 09:55:17 01/08/20 18 01/07/2018 CMP, serum or plasm a anion gap 8 (calc ) 7-25 normal Not Available [facility] [address] [place] [address], [address], 01/07/2018 09:55:17 01/08/20 18 01/07/2018 CMP, serum or plasm a calcium 9.2 mg/dL 8.6-10 .2 normal Not Available [facility] [address] [place] [address], [address], 01/07/2018 09:55:17 01/08/20 18 01/07/2018 CMP, serum or plasm a total protein 7.2 g/dL 6.4-8. 3 normal Not Available [facility] [address] [place] [address], [address], 01/07/2018 09:55:17 01/08/20 18 01/07/2018 CMP, serum or plasm a albumin 3.9 g/dL 3.5-5. 2 normal Not Available [facility] [address] [place] [address], [address], 01/07/2018 09:55:17 01/08/20 18 01/07/2018 CMP, serum or plasm a globulin 3.3 g/dL_ (calc ) 1.5-4. 5 normal Not Available [facility] [address] [place] [address], [address], 01/07/2018 09:55:17 01/08/2001/07/2018 CMP, serum or plasm a albumin/glob ulin ratio 1.2 (calc ) 1.1-2. 5 normal Not Available [facility] [address] [place] [address], [address], 01/07/2018 09:55:17 01/08/2001/07/2018 CMP, serum or plasm a bilirubin, total 0.6 mg/dL 0.1-1. 2 normal Not Available [facility] [address] [place] [address], [address], 01/07/2018 09:55:17 01/08/2001/07/2018 CMP, serum or plasm a alkaline phosphatase 55 U/L 35-105 normal Not Available [facility] [address] [place], [address], 01/07/2018 09:55:17 01/08/20 18 01/07/2018 CMP, serum or plasm a AST 18 U/L 0-32 normal Not Available [facility] [address] [place], [address], 01/07/2018 09:55:17 01/08/20 18 01/07/2018 CMP, serum or plasm a ALT 13 U/L 0-33 normal Not Available [facility] [address] [place], [address], 01/07/2018 09:55:17 01/08/20 18 01/07/2018 CMP, serum or plasm a GFR 90 >= 60 normal Not Available [facility] [address] [place], [address], 01/07/2018 09:55:17 01/08/20 18 01/07/2018 CMP, serum [...] s or longe r. . Not Available [facility] [address] [place], [address], 01/07/2018 09:55:17 01/08/20 18 01/07/2018 lipid panel , serum HDL cholesterol 62 mg/dL 66-242 low Not Available [facility] [address] [place], [address], 01/07/2018 09:55:19 01/08/20 18 01/07/2018 lipid panel , serum triglyceride s 125 mg/dL 0-149 normal TRIGL YCERI DE RANGE S SUSI L: < 150 BORDE RLINE HIGH: 150 - 199 HIGH: 200 - 499 VERY HIGH: > OR = 500 Not Available [facility] [address] [place] [address], [address], 01/07/2018 09:55:19 01/08/2001/07/2018 lipid panel , serum cholesterol 240 mg/dL 0-199 high ELVA STERO L (TOTA L) RANGE S WU ABLE: < 200 BORDE RLINE : 200 - 239 HIGHE R RISK: > 239 Not Available [facility] [address] [place] [address], [address], 01/07/2018 09:55:19 01/08/2001/07/2018 lipid panel , serum LDL cholesterol 153 mg/dL _(diaz c) 0-99 high LDL ELVA STERO L RANGE S OPTIM AL: < 100 NEAR/ ABOVE OPTIM AL: 100 - 129 BORDE RLINE HIGH: 130 - 159 HIGH: 160 - 189 VERY HIGH: > OR = 190 Not Available [facility] [address] [place] [address], [address], 01/07/2018 09:55:19 01/12/2001/11/2019 CMP, serum or plasm a glucose 108 mg/dL 74-100 high Not Available [facility] [address] [place] [address], [address], 01/11/2019 09:17:14 01/12/2001/11/2019 CMP, serum or plasm a blood urea nitrogen 10 mg/dL 6-20 normal Not Available [facility] [address] [place], [address], 01/11/2019 09:17:14 01/12/2001/11/2019 CMP, serum or plasm a creatinine 0.92 mg/dL 0.50-0 .95 normal Not Available [facility] [address] [place] [address], [address], 01/11/2019 09:17:14 01/12/20 19 01/11/2019 CMP, serum or plasm a BUN/creatini ne ratio 11 (calc ) 10-20 normal Not Available [facility] [address] [place] [address], [address], 01/11/2019 09:17:14 01/12/20 19 01/11/2019 CMP, serum or plasm a sodium 139 mmol/ L 136-14 5 normal Not Available [facility] [address] [place] [address], [address], 01/11/2019 09:17:14 01/12/2001/11/2019 CMP, serum or plasm a potassium 4.2 mmol/ L 3.4-5. 0 normal Not Available [facility] [address] [place] [address], [address], 01/11/2019 09:17:14 01/12/2001/11/2019 CMP, serum or plasm a chloride 101 mmol/ L 98-107 normal Not Available [facility] [address] [place] [address], [address], 01/11/2019 09:17:14 01/12/2001/11/2019 CMP, serum or plasm a carbon dioxide 24 mmol/ L 20-32 normal Not Available [facility] [address] [place] [address], [address], 01/11/2019 09:17:14 01/12/2001/11/2019 CMP, serum or plasm a anion gap 14 (calc ) 7-25 normal Not Available [facility] [address] [place] [address], [address], 01/11/2019 09:17:14 01/12/2001/11/2019 CMP, serum or plasm a calcium 9.0 mg/dL 8.6-10 .2 normal Not Available [facility] [address] [place] [address], [address], 01/11/2019 09:17:14 01/12/2001/11/2019 CMP, serum or plasm a total protein 6.8 g/dL 6.4-8. 3 normal Not Available [facility] [address] [place] [address], [address], 01/11/2019 09:17:14 01/12/2001/11/2019 CMP, serum or plasm a albumin 3.9 g/dL 3.5-5. 2 normal Not Available [facility] [address] [place] [address], [address], 01/11/2019 09:17:14 01/12/2001/11/2019 CMP, serum or plasm a globulin 2.9 g/dL_ (calc ) 1.5-4. 5 normal Not Available [facility] [address] [place] [address], [address], 01/11/2019 09:17:14 01/12/2001/11/2019 CMP, serum or plasm a albumin/glob ulin ratio 1.3 (calc ) 1.1-2. 5 normal Not Available [facility] [address] [place] [address], [address], 01/11/2019 09:17:14 01/12/2001/11/2019 CMP, serum or plasm a bilirubin, total 0.4 mg/dL 0.1-1. 2 normal Not Available [facility] [address] [place] [address], [address], 01/11/2019 09:17:14 01/12/2001/11/2019 CMP, serum or plasm a alkaline phosphatase 55 U/L 35-105 normal Not Available [facility] [address] [place], [address], 01/11/2019 09:17:14 01/12/2001/11/2019 CMP, serum or plasm a AST 16 U/L 0-32 normal Not Available [facility] [address] [place], [address], 01/11/2019 09:17:14 01/12/20 19 01/11/2019 CMP, serum or plasm a ALT 12 U/L 0-33 normal Not Available [facility] [place], [address], 01/11/2019 09:17:14 01/12/20 19 01/11/2019 CMP, serum or plasm a GFR 81 >= 60 normal Not Available [facility] [address] [place], [address], 01/11/2019 09:17:14 01/12/20 19 01/11/2019 CMP, serum [...] month s or longe r. Not Available [facility] [address] [place] [address], [address], 01/11/2019 09:17:14 01/12/2001/11/2019 CBC w/ auto diff white blood cells 5.9 K/uL 3.8-10 .8 normal Not Available [facility] [address] [place] [address], [address], 01/11/2019 09:02:43 01/12/2001/11/2019 CBC w/ auto diff red blood cells 4.35 M/uL 3.80-5 .20 normal Not Available [facility] [address] [place] [address], [address], 01/11/2019 09:02:43 01/12/2001/11/2019 CBC w/ auto diff hemoglobin 12.7 g/dL 12.0-1 6.0 normal Not Available [facility] [address] [place] [address], [address], 01/11/2019 09:02:43 01/12/20 19 01/11/2019 CBC w/ auto diff hematocrit 37.6 % 35.0-4 7.0 normal Not Available [facility] [address] [place] [address], [address], 01/11/2019 09:02:43 01/12/20 19 01/11/2019 CBC w/ auto diff MCV 87 fL 80-100 normal Not Available [facility] [address] [place] [address], [address], 01/11/2019 09:02:43 01/12/2001/11/2019 CBC w/ auto diff MCH 29 pg 26-35 normal Not Available [facility] [address] [place] [address], [address], 01/11/2019 09:02:43 01/12/2001/11/2019 CBC w/ auto diff MCHC 34 g/dL 32-36 normal Not Available [facility] [address] [place] [address], [address], 01/11/2019 09:02:43 01/12/2001/11/2019 CBC w/ auto diff RDW 14.5 % 11.0-1 5.0 normal Not Available [facility] [address] [place] [address], [address], 01/11/2019 09:02:43 01/12/2001/11/2019 CBC w/ auto diff MPV 7.3 fL 6.2-10 .5 normal Not Available [facility] [address] [place] [address], [address], 01/11/2019 09:02:43 01/12/2001/11/2019 CBC w/ auto diff platelet count 250 K/uL 130-40 0 normal Not Available [facility] [address] [place], [address], 01/11/2019 09:02:43 01/12/2001/11/2019 CBC w/ auto diff neutrophil,a bsolute 2.4 K/uL 1.6-8. 4 normal Not Available [facility] [address] [place] [address], [address], 01/11/2019 09:02:43 01/12/2001/11/2019 CBC w/ auto diff lymphocyte,a bsolute 2.8 K/uL 0.4-5. 1 normal Not Available [facility] [address] [place] [address], [address], 01/11/2019 09:02:43 01/12/2001/11/2019 CBC w/ auto diff monocyte,abs olute 0.5 K/uL 0.0-1. 2 normal Not Available [facility] [address] [place] [address], [address], 01/11/2019 09:02:43 01/12/2001/11/2019 CBC w/ auto diff eosinophil,a bsolute 0.2 K/uL 0.0-0. 8 normal Not Available [facility] [address] [place] [address], [address], 01/11/2019 09:02:43 01/12/2001/11/2019 CBC w/ auto diff basophil,abs olute 0.1 K/uL 0.0-0. 3 normal Not Available [facility] [address] [place] [address], [address], 01/11/2019 09:02:43 01/12/2001/11/2019 CBC w/ auto diff % neutrophils 40.6 % 42.0-7 8.0 low Not Available [facility] [address] [place] [address], [address], 01/11/2019 09:02:43 01/12/2001/11/2019 CBC w/ auto diff % lymphocytes 46.9 % 11.0-4 7.0 normal Not Available [facility] [address] [place] [address], [address], 01/11/2019 09:02:43 01/12/2001/11/2019 CBC w/ auto diff % monocytes 8.2 % 0.0-11 .0 normal Not Available [facility] [address] [place] [address], [address], 01/11/2019 09:02:43 01/12/2001/11/2019 CBC w/ auto diff % eosinophils 3.4 % 0.0-7. 0 normal Not Available [facility] [address] [place] [address], [address], 01/11/2019 09:02:43 01/12/2001/11/2019 CBC w/ auto diff % basophils 0.9 % 0.0-3. 0 normal Not Available [facility] [address] [place] [address], [address], 01/11/2019 09:02:43 01/12/2001/11/2019 CBC w/ auto diff nucleated red cells 0.1 % 0.0-0. 9 normal Not Available [facility] [address] [place] [address], [address], 01/11/2019 09:02:43 01/12/2001/11/2019 CBC w/ auto diff nucleated RBCs, absolute 0.01 K/uL not estab. normal Not Available [facility] [address] [place] [address], [address], 01/11/2019 09:02:43 01/12/2001/12/2020 CMP, serum or plasm a glucose 105 mg/dL 74-100 high Not Available [facility] [address] [place] [address], [address], 01/12/2020 09:32:21 01/12/2001/12/2020 CMP, serum or plasm a blood urea nitrogen 8 mg/dL 6-20 normal Not Available [facility] [address] [place] [address], [address], 01/12/2020 09:32:21 01/12/20 20 01/12/2020 CMP, serum or plasm a creatinine 0.86 mg/dL 0.50-0 .95 normal Not Available [facility] [address] [place] [address], [address], 01/12/2020 09:32:21 01/12/20 20 01/12/2020 CMP, serum or plasm a BUN/creatini ne ratio 9 (calc ) 10-20 low Not Available [facility] [address] [place] [address], [address], 01/12/2020 09:32:21 01/12/20 20 01/12/2020 CMP, serum or plasm a sodium 139 mmol/ L 136-14 5 normal Not Available [facility] [address] [place] [address], [address], 01/12/2020 09:32:21 01/12/20 20 01/12/2020 CMP, serum or plasm a potassium 4.2 mmol/ L 3.4-5. 0 normal Not Available [facility] [address] [place] [address], [address], 01/12/2020 09:32:21 01/12/20 20 01/12/2020 CMP, serum or plasm a chloride 103 mmol/ L 98-107 normal Not Available [facility] [address] [place] [address], [address], 01/12/2020 09:32:21 01/12/20 20 01/12/2020 CMP, serum or plasm a carbon dioxide 28 mmol/ L 20-32 normal Not Available [facility] [address] [place] [address], [address], 01/12/2020 09:32:21 01/12/20 20 01/12/2020 CMP, serum or plasm a anion gap 8 (calc ) 7-25 normal Not Available [facility] [address] [place] [address], [address], 01/12/2020 09:32:21 01/12/2001/12/2020 CMP, serum or plasm a calcium 9.1 mg/dL 8.6-10 .2 normal Not Available [facility] [address] [place] [address], [address], 01/12/2020 09:32:21 01/12/20 20 01/12/2020 CMP, serum or plasm a total protein 6.7 g/dL 6.4-8. 3 normal Not Available [facility] [address] [place] [address], [address], 01/12/2020 09:32:21 01/12/2001/12/2020 CMP, serum or plasm a albumin 4.1 g/dL 3.5-5. 2 normal Not Available [facility] [address] [place] [address], [address], 01/12/2020 09:32:21 01/12/2001/12/2020 CMP, serum or plasm a globulin 2.6 g/dL_ (calc ) 1.5-4. 5 normal Not Available [facility] [address] [place] [address], [address], 01/12/2020 09:32:21 01/12/2001/12/2020 CMP, serum or plasm a albumin/glob ulin ratio 1.6 (calc ) 1.1-2. 5 normal Not Available [facility] [address] [place] [address], [address], 01/12/2020 09:32:21 01/12/2001/12/2020 CMP, serum or plasm a bilirubin, total 0.3 mg/dL 0.1-1. 2 normal Not Available [facility] [address] [place] [address], [address], 01/12/2020 09:32:21 01/12/2001/12/2020 CMP, serum or plasm a alkaline phosphatase 58 U/L 35-105 normal Not Available [facility] [address] [place], [address], 01/12/2020 09:32:21 01/12/20 20 01/12/2020 CMP, serum or plasm a AST 20 U/L 0-32 normal Not Available [facility] [address] [place] [address], [address], 01/12/2020 09:32:21 01/12/20 20 01/12/2020 CMP, serum or plasm a ALT 12 U/L 0-33 normal Not Available [facility] [address] [place] [address], [address], 01/12/2020 09:32:21 01/12/20 20 01/12/2020 CMP, serum or plasm a GFR 87 >= 60 normal Not Available [facility] [address] [place], [address], 01/12/2020 09:32:21 01/12/2001/12/2020 CMP, serum or plasm [...] month s or longe r. Not Available [facility] [place], [address], 01/12/2020 09:32:21 01/12/20 20 01/12/2020 CBC w/ auto diff white blood cells 5.1 K/uL 3.8-10 .8 normal Not Available [facility] [address] [place] [address], [address], 01/12/2020 09:07:06 01/12/20 20 01/12/2020 CBC w/ auto diff red blood cells 4.59 M/uL 3.80-5 .20 normal Not Available [facility] [address] [place] [address], [address], 01/12/2020 09:07:06 01/12/20 20 01/12/2020 CBC w/ auto diff hemoglobin 13.3 g/dL 12.0-1 6.0 normal Not Available [facility] [address] [place] [address], [address], 01/12/2020 09:07:06 01/12/2001/12/2020 CBC w/ auto diff hematocrit 39.6 % 35.0-4 7.0 normal Not Available [facility] [address] [place] [address], [address], 01/12/2020 09:07:06 01/12/2001/12/2020 CBC w/ auto diff MCV 86 fL 80-100 normal Not Available [facility] [address] [place] [address], [address], 01/12/2020 09:07:06 01/12/2001/12/2020 CBC w/ auto diff MCH 29 pg 26-35 normal Not Available [facility] [address] [place] [address], [address], 01/12/2020 09:07:06 01/12/2001/12/2020 CBC w/ auto diff MCHC 34 g/dL 32-36 normal Not Available [facility] [address] [place] [address], [address], 01/12/2020 09:07:06 01/12/2001/12/2020 CBC w/ auto diff RDW 14.5 % 11.0-1 5.0 normal Not Available [facility] [address] [place] [address], [address], 01/12/2020 09:07:06 01/12/20 20 01/12/2020 CBC w/ auto diff MPV 7.5 fL 6.2-10 .5 normal Not Available [facility] [address] [place] [address], [address], 01/12/2020 09:07:06 01/12/20 20 01/12/2020 CBC w/ auto diff platelet count 268 K/uL 130-40 0 normal Not Available [facility] [address] [place] [address], [address], 01/12/2020 09:07:06 01/12/20 20 01/12/2020 CBC w/ auto diff neutrophil,a bsolute 2.3 K/uL 1.6-8. 4 normal Not Available [facility] [address] [place] [address], [address], 01/12/2020 09:07:06 01/12/20 20 01/12/2020 CBC w/ auto diff lymphocyte,a bsolute 2.1 K/uL 0.4-5. 1 normal Not Available [facility] [address] [place] [address], [address], 01/12/2020 09:07:06 01/12/20 20 01/12/2020 CBC w/ auto diff monocyte,abs olute 0.4 K/uL 0.0-1. 2 normal Not Available [facility] [address] [place] [address], [address], 01/12/2020 09:07:06 01/12/20 20 01/12/2020 CBC w/ auto diff eosinophil,a bsolute 0.2 K/uL 0.0-0. 8 normal Not Available [facility] [address] [place] [address], [address], 01/12/2020 09:07:06 01/12/20 20 01/12/2020 CBC w/ auto diff basophil,abs olute 0.1 K/uL 0.0-0. 3 normal Not Available [facility] [address] [place] [address], [address], 01/12/2020 09:07:06 01/12/20 20 01/12/2020 CBC w/ auto diff % neutrophils 44.0 % 42.0-7 8.0 normal Not Available [facility] [address] [place] [address], [address], 01/12/2020 09:07:06 01/12/20 20 01/12/2020 CBC w/ auto diff % lymphocytes 41.2 % 11.0-4 7.0 normal Not Available [facility] [address] [place] [address], [address], 01/12/2020 09:07:06 01/12/2001/12/2020 CBC w/ auto diff % monocytes 8.1 % 0.0-11 .0 normal Not Available [facility] [address] [place] [address], [address], 01/12/2020 09:07:06 01/12/20 20 01/12/2020 CBC w/ auto diff % eosinophils 4.3 % 0.0-7. 0 normal Not Available [facility] [address] [place] [address], [address], 01/12/2020 09:07:06 01/12/2001/12/2020 CBC w/ auto diff % basophils 2.4 % 0.0-3. 0 normal Not Available [facility] [address] [place] [address], [address], 01/12/2020 09:07:06 01/12/2001/12/2020 CBC w/ auto diff nucleated red cells 0.0 % 0.0-0. 9 normal Not Available [facility] [address] [place] [address], [address], 01/12/2020 09:07:06 01/12/20 20 01/12/2020 CBC w/ auto diff nucleated RBCs, absolute 0.00 K/uL not estab. normal Not Available [facility] [address] [place] [address], [address], 01/12/2020 09:07:06 01/04/20 22 01/03/2022 LIPID PROFI LE HDL cholesterol 63 mg/dL 50-242 normal Not Available [facility] [address] [place] [address], [address], 01/03/2022 09:58:11 01/04/20 22 01/03/2022 LIPID PROFI LE triglyceride s 162 mg/dL 0-149 high TRIGL YCERI DE RANGE S SUSI L: < 150 BORDE RLINE HIGH: 150 - 199 HIGH: 200 - 499 VERY HIGH: > OR = 500 Not Available [facility] [address] [place] [address], [address], 01/03/2022 09:58:11 01/04/20 22 01/03/2022 LIPID PROFI LE cholesterol 264 mg/dL 0-199 high ELVA STERO L (TOTA L) RANGE S WU ABLE: < 200 BORDE RLINE : 200 - 239 HIGHE R RISK: > 239 Not Available [facility] [address] [place] [address], [address], 01/03/2022 09:58:11 01/04/20 22 01/03/2022 LIPID PROFI LE LDL cholesterol 169 mg/dL _(diaz c) 0-99 high LDL ELVA STERO L RANGE S OPTIM AL: < 100 NEAR/ ABOVE OPTIM AL: 100 - 129 BORDE RLINE HIGH: 130 - 159 HIGH: 160 - 189 VERY HIGH: > OR = 190 Not Available [facility] [address] [place] [address], [address], 01/03/2022 09:58:11 01/04/20 22 01/03/2022 COMP. METAB OLIC PANEL glucose 108 mg/dL 74-100 high Not Available [facility] [address] [place] [address], [address], 01/03/2022 09:58:10 01/04/20 22 01/03/2022 COMP. METAB OLIC PANEL blood urea nitrogen 8 mg/dL 6-20 normal Not Available [facility] [address] [place] [address], [address], 01/03/2022 09:58:10 01/04/20 22 01/03/2022 COMP. METAB OLIC PANEL creatinine 0.91 mg/dL 0.50-0 .95 normal Not Available [facility] [address] [place] [address], [address], 01/03/2022 09:58:10 01/04/20 22 01/03/2022 COMP. METAB OLIC PANEL BUN/creatini ne ratio 9 (calc ) 10-20 low Not Available [facility] [address] [place] [address], [address], 01/03/2022 09:58:10 01/04/20 22 01/03/2022 COMP. METAB OLIC PANEL sodium 139 mmol/ L 136-14 5 normal Not Available [facility] [address] [place] [address], [address], 01/03/2022 09:58:10 01/04/20 22 01/03/2022 COMP. METAB OLIC PANEL potassium 4.5 mmol/ L 3.4-5. 0 normal Not Available [facility] [address] [place] [address], [address], 01/03/2022 09:58:10 01/04/20 22 01/03/2022 COMP. METAB OLIC PANEL chloride 100 mmol/ L 98-107 normal Not Available [facility] [address] [place] [address], [address], 01/03/2022 09:58:10 01/04/20 22 01/03/2022 COMP. METAB OLIC PANEL carbon dioxide 28 mmol/ L 22-31 normal Not Available [facility] [address] [place] [address], [address], 01/03/2022 09:58:10 01/04/20 22 01/03/2022 COMP. METAB OLIC PANEL anion gap 11 (calc ) 7-25 normal Not Available [facility] [address] [place] [address], [address], 01/03/2022 09:58:10 01/04/20 22 01/03/2022 COMP. METAB OLIC PANEL calcium 9.8 mg/dL 8.6-10 .2 normal Not Available [facility] [address] [place] [address], [address], 01/03/2022 09:58:10 01/04/20 22 01/03/2022 COMP. METAB OLIC PANEL total protein 7.9 g/dL 6.4-8. 3 normal Not Available [facility] [address] [place] [address], [address], 01/03/2022 09:58:10 01/04/20 22 01/03/2022 COMP. METAB OLIC PANEL albumin 4.4 g/dL 3.5-5. 2 normal Not Available [facility] [address] [place] [address], [address], 01/03/2022 09:58:10 01/04/20 22 01/03/2022 COMP. METAB OLIC PANEL globulin 3.5 g/dL_ (calc ) 1.5-4. 5 normal Not Available [facility] [address] [place] [address], [address], 01/03/2022 09:58:10 01/04/20 22 01/03/2022 COMP. METAB OLIC PANEL albumin/glob ulin ratio 1.3 (calc ) 1.1-2. 5 normal Not Available [facility] [address] [place] [address], [address], 01/03/2022 09:58:10 01/04/20 22 01/03/2022 COMP. METAB OLIC PANEL bilirubin, total 0.5 mg/dL 0.1-1. 2 normal Not Available [facility] [address] [place], [address], 01/03/2022 09:58:10 01/04/20 22 01/03/2022 COMP. METAB OLIC PANEL alkaline phosphatase 73 U/L 30-121 normal Not Available [facility] [address] [place], [address], 01/03/2022 09:58:10 01/04/20 22 01/03/2022 COMP. METAB OLIC PANEL AST 25 U/L 0-32 normal Not Available [facility] [address] [place], [address], 01/03/2022 09:58:10 01/04/20 22 01/03/2022 COMP. METAB OLIC PANEL ALT 17 U/L 0-33 normal Not Available [facility] [address] [place], [address], 01/03/2022 09:58:10 01/04/20 22 01/03/2022 COMP. METAB OLIC PANEL GFR 73 >= 60 normal NOT E New calcu latio n for GFR (CKD- EPI 2020) is formu lated witho ut race adjus tment facto rs at the recom menda tion of the [facility] . This calcu latio n has not been valid ated in pregn ant women . For pedia tric patie nts refer to https ://leona abrams.britta loja.o rg/pr jamila burden s/KDO QI/gf r_cal culat orPed Not Available [facility] [address] [place], [address], 01/03/2022 09:58:10 01/04/20 22 01/03/2022 COMPL ETE BLOOD COUNT white blood cells 6.9 K/uL 3.8-10 .8 normal Not Available [facility] [address] [place], [address], 01/03/2022 09:22:33 01/04/20 22 01/03/2022 COMPL ETE BLOOD COUNT red blood cells 4.85 M/uL 3.80-5 .20 normal Not Available [facility] [address] [place] [address], [address], 01/03/2022 09:22:33 01/04/20 22 01/03/2022 COMPL ETE BLOOD COUNT hemoglobin 13.6 g/dL 12.0-1 6.0 normal Not Available [facility] [address] [place] [address], [address], 01/03/2022 09:22:33 01/04/20 22 01/03/2022 COMPL ETE BLOOD COUNT hematocrit 40.8 % 35.0-4 7.0 normal Not Available [facility] [address] [place] [address], [address], 01/03/2022 09:22:33 01/04/20 22 01/03/2022 COMPL ETE BLOOD COUNT MCV 84 fL 80-100 normal Not Available [facility] [address] [place] [address], [address], 01/03/2022 09:22:33 01/04/20 22 01/03/2022 COMPL ETE BLOOD COUNT MCH 28 pg 26-35 normal Not Available [facility] [address] [place] [address], [address], 01/03/2022 09:22:33 01/04/2001/03/2022 COMPL ETE BLOOD COUNT MCHC 33 g/dL 32-36 normal Not Available [facility] [address] [place] [address], [address], 01/03/2022 09:22:33 01/04/20 22 01/03/2022 COMPL ETE BLOOD COUNT RDW 15.1 % 11.0-1 5.0 high Not Available [facility] [address] [place] [address], [address], 01/03/2022 09:22:33 01/04/20 22 01/03/2022 COMPL ETE BLOOD COUNT MPV 7.1 fL 6.2-10 .5 normal Not Available [facility] [address] [place] [address], [address], 01/03/2022 09:22:33 01/04/20 22 01/03/2022 COMPL ETE BLOOD COUNT platelet count 328 K/uL 130-40 0 normal Not Available [facility] [address] [place] [address], [address], 01/03/2022 09:22:33 01/04/20 22 01/03/2022 COMPL ETE BLOOD COUNT neutrophil,a bsolute 2.9 K/uL 1.6-8. 4 normal Not Available [facility] [address] [place] [address], [address], 01/03/2022 09:22:33 01/04/20 22 01/03/2022 COMPL ETE BLOOD COUNT lymphocyte,a bsolute 3.0 K/uL 0.4-5. 1 normal Not Available [facility] [address] [place] [address], [address], 01/03/2022 09:22:33 01/04/20 22 01/03/2022 COMPL ETE BLOOD COUNT monocyte,abs olute 0.7 K/uL 0.0-1. 2 normal Not Available [facility] [address] [place] [address], [address], 01/03/2022 09:22:33 01/04/20 22 01/03/2022 COMPL ETE BLOOD COUNT eosinophil,a bsolute 0.2 K/uL 0.0-0. 8 normal Not Available [facility] [address] [place] [address], [address], 01/03/2022 09:22:33 01/04/20 22 01/03/2022 COMPL ETE BLOOD COUNT basophil,abs olute 0.1 K/uL 0.0-0. 3 normal Not Available [facility] [address] [place] [address], [address], 01/03/2022 09:22:33 01/04/2001/03/2022 COMPL ETE BLOOD COUNT % neutrophils 42.0 % 42.0-7 8.0 normal Not Available [facility] [address] [place] [address], [address], 01/03/2022 09:22:33 01/04/20 22 01/03/2022 COMPL ETE BLOOD COUNT % lymphocytes 42.8 % 11.0-4 7.0 normal Not Available [facility] [address] [place] [address], [address], 01/03/2022 09:22:33 01/04/20 22 01/03/2022 COMPL ETE BLOOD COUNT % monocytes 10.6 % 0.0-11 .0 normal Not Available [facility] [address] [place] [address], [address], 01/03/2022 09:22:33 01/04/2001/03/2022 COMPL ETE BLOOD COUNT % eosinophils 3.5 % 0.0-7. 0 normal Not Available [facility] [address] [place] [address], [address], 01/03/2022 09:22:33 01/04/2001/03/2022 COMPL ETE BLOOD COUNT % basophils 1.1 % 0.0-3. 0 normal Not Available [facility] [address] [place] [address], [address], 01/03/2022 09:22:33 01/04/2001/03/2022 COMPL ETE BLOOD COUNT nucleated red cells 0.0 % 0.0-0. 9 normal Not Available [facility] [address] [place] [address], [address], 01/03/2022 09:22:33 09/01/03/2022 COMPL ETE BLOOD COUNT nucleated RBCs, absolute 0.00 K/uL not estab. normal Not Available [facility] [address] [place], [address], 01/03/2022 09:22:33 05/09/19 18 05/07/2017 MAMMO , scree mary beth, tomos ynthe sis, bilat eral, w/ CAD No observ ation record ed. [email or web address] Not Available 2017 17:58:15 05/13/19 19 05/11/2018 MAMMO , scree mary beth, tomos ynthe sis, bilat eral, w/ CAD No observ ation record ed. [facility] [address] [place] [address], [id number], 05/13/2018 14:48:29 02/13/20 19 02/11/2019 audio gram No observ ation record ed. [email or web address] Not Available 2018 09:39:21 Result Notes None recorded. 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 Procedures Surgical History Date Name Laterality Status Provider Name and Address Organization Details Recorded Time 02/12/20 19 Tympanogram completed SHELBY DANIELS [address] [place], [address], [facility] 02/11/2019 14:55:15 02/12/20 19 Audiogram completed ALEJO PRICE AUD [address] [place], [address], [facility] 02/11/2019 14:55:13 Appendectomy completed Reji Bailey [facility] 01/01/2017 10:01:29 Cholecystectomy completed Reji Vizuete-Ort [facility] [facility] 10:01:43 Partial hysterectomy completed Reji Vizuete-Ort [facility] 01/01/2017 10:01:54 ligation of fallopian tube completed [facility] 02/11/2019 13:57:51 Cholecystectomy completed [facility] 02/11/2019 13:58:07 colonoscopy completed [facility] 02/11/2019 13:58:31 procedure on neck completed [facility] 02/11/2019 13:58:49 Imaging Results None recorded. Procedure Notes None recorded. Medical Equipment None Reported. Allergies Allergen ID Allergen Name Allergen Category Reaction Reaction Severity Criticality Documentation Date Start Date Code Code System Note Provider Name and Address Organization Details Recorded Time [id number] hydrocodo ne bitartrat e medicatio n Not available Not available Not available 03/14/20162006 15095 9 RxNorm Comme nt: Creat ed By: Rodrigo massey;Cr eated Date: 10:03 :41 AM; Not Available [facility] 6 10:54:39 222706 Prilosec medicatio n Not available Not available Not available 03/15/2016201534 5 RxNorm Comme nt: Creat ed By: Constance on Madina ;Crea arturo Date: 2015 10:06 :30 AM; Not Available [facility] 6 03:55:25 [id number] Xarelto medicatio n Not available Not available Not available 03/15/20162015 15131 99 RxNorm Comme nt: Creat ed By: Constance on Madina ;Crea arturo Date: 2015 10:05 :15 AM; Not Available [facility] 6 07:45:15 [id number] Calan medicatio n Not available Not available Not available 03/15/2016200649 0 RxNorm Comme nt: Creat ed By: Rodrigo Jarrett ie;Cr eated Date: 9/6/2 007 10:04 :01 AM; Not Available [facility] 6 08:39:26 Medications Name Sig Start Date Stop Date Status Note LastModified by Organization Details LastModified Time Toprol XL 100 mg tablet,ext ended release Daily active Frequency: daily;Medi cation Descriptio n: metoprolol succinate; Dosage:1; Route:oral ; refills:0 Not Available Not Available Not Available 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 2018 active Not Available Not Available Not Avai lable Paxil 20 mg tablet Daily active Frequency: daily;[facility] cation Descriptio n: paroxetine ; Dosage:1; Route:oral [...] MWF and 5mg every other day;Freque ncy: daily;[facility] cation Descriptio n: warfarin; Dosage:as directed; refills:5; Quantity:3 0 Not Available Not Available Not Available Vitals Date Recorded Body height Body mass index (BMI) Body weight Body temperature Heart rate Systolic blood pressure Diastolic blood pressure Provider Name and Address Organization Details Last Updated DateTime 7 165.1 cm 45.7 kg/m2 645177. 18 g 97.5 [degF] 66 /min 131 mm[Hg] 86 mm[Hg] Reji cronin [facility] 7 10:05:00 Date Recorded Body height Body mass index (BMI) Body weight Body temperature Heart rate Heart rate Systolic blood pressure Diastolic blood pressure Systolic blood pressure Diastolic blood pressure Provider Name and Address Organization Details Last Updated DateTime 8 165.1 cm 47 kg/m2 114174. 84 g 97.5 [degF] 65 /min 65 /min 136 mm[Hg] 102 mm[Hg] 121 mm[Hg] 70 mm[Hg] Luis Enrique Valle [facility] 8 09:27:26 Date Recorded Body weight Body mass index (BMI) Body height Body temperature Heart rate Systolic blood pressure Diastolic blood pressure Provider Name and Address Organization Details Last Updated DateTime 9 692642. 9 g 45.8 kg/m2 165.1 cm 96.5 [degF] 83 /min 142 mm[Hg] 87 mm[Hg] Sanjuanita Wallace [facility] 9 14:22:22 Social History Question Answer Notes LastModified by Organizat ion Details LastModified Time Tobacco Smoking Status Never Smoker [email or web address] 10:02:11 Live Alone Or With Others? With Others [email or web address] Information not available 01/01/2017 Marital Status [email or web address] Informatio n not available 01/01/2017 What Was The Date Of Your Most Recent Tobacco Screening? 01/07/2018 Information not available 06/08/2019 Has Tobacco Cessation Counseling Been Provided? No [email or web address] Information not available 01/01/2017 Sex: Female Functional Status Question Answer Note LastModified by Organization D etails LastModified Time What is your level of alcohol consumption? None [email or web address] Information not available 01/01/2017 Mental Status None recorded. Family History Relationship Description Onset Age of this Age Resolved Age Notes LastModified by Organization Details LastModified Time Mother Diabetes mellitus [email or web address] Not available 2016 09:59:31 Mother Family history of malignant neoplasm [email or web address] Not available 2016 09:59:47 Mother Heart disease [email or web address] Not available 2016 10:00:30 Mother Hyperlipidem ia Not available 2016 10:00:43 Mother Hypertensive disorder [email or web address] Not available 2016 10:00:58 Mother Asthma [email or web address] Not available 02/11/2019 13:56:11 Maternal Grandfather Family history of malignant neoplasm [email or web address] Not available 2016 09:59:47 Maternal Grandmother Family history of stroke [email or web address] Not available 2016 10:00:05 Father Heart disease [email or web address] Not available 2016 10:00:30 Sister Hypertensive disorder Not available 2016 10:00:58 Sister Disorder of thyroid gland [email or web address] Not available 02/11 13:55:10 Medical History Condition Response Cancer Y Blood Transfusion Y Gynecological HistoryNo gynecological history recorded. Obstetrics History GPAL:G 0 P 0 0 0 0 Past Encounters Encounter ID Performer Location Encounter Start Date Encounter Closed Date Diagnosis/Indication Diagnosis SNOMED-CT Code Diagnosis ICD10 Code Diagnosis Note [id number] SUSANNAH BALLARD MD HEM/[facility] [address],[facility] [address] [place] [id number] 01/01/2017 09:05:16 01/01/2017 11:50:36 Blood coagulation disorder 27122594 D68.59 History of non-Hodgkins lymphoma 376526180 Z85.72 [id number] SUSANNAH BALLARD MD HEM/[facility]C [facility] [facility] [address],[facility] [address] [place] [address] 01/07/2018 08:49:47 01/07/2018 10:46:01 Non-Hodgkin's lymphoma (clinical) 412839376 C85.80 E78.5 Blood coag ulation disorder 13919499 D68.59 Morbid obesity 294764196 E66.01 [id number] SUSANNAH BALLARD MD HEM/ONC [facility] CLOSED [address] [place] [address] 01/11/2019 08:55:10 01/11/2019 11:07:29 [id number] MILKA WALKER MD ID ENT [address] [place] [id number] 02/11/2019 13:30:03 02/11/2019 15:57:14 Dysfunction of bilateral eustachian tubes 0621071131 576696 H69.93 Dizziness 746718038 R42 Nausea 798740635 R11.0 Migraine with aura 78234 06 G43.109 -hx Migraine 29666211 G43.90 9 vestibular [id number] SHELBY DANIELS ID ENT [address] [place] [id number] 02/11/2019 14:39:21 02/11/2019 15:44:54 Dysfunction of bilateral eustachian tubes 2671233073 526212 H69.93 [id number] SUSANNAH BALLARD MD HEM/ONC [place] CLOSED [address] [place] [address] 01/12/2020 09:03:57 01/12/2020 11:16:40 [id number] SUSANNAH BALLARD MD HEM/ONC [place] CL[facility]ED [address] [place] [address] 01/10/2021 09:05:14 01/10/2021 12:50:40 [id number] SUSANNAH BALLARD MD HEM/ONC [place] CLOSED [address] [place] [address] 01/03/2022 09:08:05 01/03/2022 11:54:52 Health Concerns Section Related Observation LastModified by Organization Detai ls LastModified Time None Recorded Concern Status LastModified by Organization Details LastModified Time None Recorded Advance Directives Directive None Recorded Payers Insurance Date Sequence Insurance Name Policy Number Policy Lynn Covered Member ID Lynn Member ID Guarantor Name 01/15/2022 2 [facility] Jessica Odell [id number] Jessica Odell 01/11/2022 2 [facility] [employer] (PPO) Jessica Odell [id number] Jessica Odell 01/10/2022 1 [facility] (MEDICAID HMO) Jessica Odell [id number] Jessica Odell 01/10/2022 GENERIC INSURANC E - MOVED-HOLD Jessica Odell 08/23/2021 1 [place] [id number] Oskar Odell [id number] Jessica Odell Notes Date Note Type Note Provider Name and Address Organization Details Recorded Time 01/01/2017 text/html Ms. 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 She had 8 cycles of ProMACE-CytaBom chemotherapy, followed by thoracic radiation. Other medical history is significant for anti-thrombin III deficiency, DVT and PE in 2013, continuing on Coumadin, hysterectomy with incidental appendectomy in 1997, arthritis and obesity. SUSANNAH BALLARD MD [address] [place] [address], [phone], [facility] 02/16/2017 21:48:36 01/07/2018 text/html Ms. 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 She had 8 cycles of ProMACE-CytaBom chemotherapy, followed by thoracic radiation. Other medical history is significant for anti-thrombin III deficiency, DVT and PE in 2013, continuing on Coumadin, hysterectomy with incidental appendectomy in 1997, arthritis and obesity. SUSANNAH BALLARD MD [address] [place] [address], [phone], [facility] 01/11/2018 18:00:27 02/11/2019 text/html Jessica is a [...] sensitive to certain scents. MILKA WALKER MD [address] [place] [address], [phone], [facility] 02/11/2019 18:17:57 OBGyn Episode No OBEpisode recorded.
--- OUTSIDE RECORDS SUMMARY | 2024-10-08 09:04 | XMS_ITS | Data Portability ---
Author Organization [facility] Address [address] [place] [address] Care Team Providers Care Publications Manager Name Role Phone JEAN CRUZ Hematology/Oncology STEPHANIE PEÑA Primary Care Provider [phone] Assessment Encounter Date Assessment Date Assessment LastModified [...] of cardiovascular disease was calculated using the [place] calculator, to be just over 8%, too [...] be set up for a CT at [facility] to evaluate for diverticulitis. Her total cholesterol and LDL are somewhat high; her 10 year risk of cardiovascular disease was calculated, using the [place] calculator, to be 6.6%, not high enough [...] By Organization Details Last Modified Time 01/11/2019 [id number] body mass index: care instructions Not available 01/17/2019 19:01:07 Body Mass Index: Care Instructions-LC Not available 01/17/2019 19:01:07 learning about healthy weight Not available 01/17/2019 19:01:07 01/10/2021 [id number] Body Mass Index: Care Instructions-LC Not available 01/14/2021 09:09:46 01/03/2022 [id number] Body Mass Index: Care Instructions-LC Not available 01/05/2022 20:02:41 Reason for Referral None Reported. Results Created Date Observation Date Name Description Value Unit Range Abnormal Flag Note LastModifiedBy Organization Detail LastModifiedTime 01/12/2001/11/2019 CBC w/ auto diff white blood cells 5.9 K/uL 3.8-10 .8 normal Not Available [facility] [address] [place], [address], 01/11/2019 09:02:43 01/12/2001/11/2019 CBC w/ auto diff red blood cells 4.35 M/uL 3.80-5 .20 normal Not Available [facility] [address] [place], [address], 01/11/2019 09:02:43 01/12/2001/1101/11/2019 CBC w/ auto diff hemoglobin 12.7 g/dL 12.0-1 6.0 normal Not Available [facility] [address] [place] [address], [address], 01/11/2019 09:02:43 01/12/20 19 01/11/2019 CBC w/ auto diff hematocrit 37.6 % 35.0-4 7.0 normal Not Available [facility] [address] [place] [address], [address], 01/11/2019 09:02:43 01/12/20 19 01/11/2019 CBC w/ auto diff MCV 87 fL 80-100 normal Not Available [facility] [address] [place] [address], [address], 01/11/2019 09:02:43 01/12/2001/11/2019 CBC w/ auto diff MCH 29 pg 26-35 normal Not Available [facility] [address] [place] [address], [address], 01/11/2019 09:02:43 01/12/2001/11/2019 CBC w/ auto diff MCHC 34 g/dL 32-36 normal Not Available [facility] [address] [place] [address], [address], 01/11/2019 09:02:43 01/12/2001/11/2019 CBC w/ auto diff RDW 14.5 % 11.0-1 5.0 normal Not Available [facility] [address] [place] [address], [address], 01/11/2019 09:02:43 01/12/2001/11/2019 CBC w/ auto diff MPV 7.3 fL 6.2-10 .5 normal Not Available [facility] [address] [place] [address], [address], 01/11/2019 09:02:43 01/12/2001/11/2019 CBC w/ auto diff platelet count 250 K/uL 130-40 0 normal Not Available [facility] [address] [place] [address], [address], 01/11/2019 09:02:43 01/12/2001/11/2019 CBC w/ auto diff neutrophil,a bsolute 2.4 K/uL 1.6-8. 4 normal Not Available [facility] [address] [place] [address], [address], 01/11/2019 09:02:43 01/12/2001/11/2019 CBC w/ auto diff lymphocyte,a bsolute 2.8 K/uL 0.4-5. 1 normal Not Available [facility] [address] [place] [address], [address], 01/11/2019 09:02:43 01/12/2001/11/2019 CBC w/ auto diff monocyte,abs olute 0.5 K/uL 0.0-1. 2 normal Not Available [facility] [address] [place] [address], [address], 01/11/2019 09:02:43 01/12/2001/11/2019 CBC w/ auto diff eosinophil,a bsolute 0.2 K/uL 0.0-0. 8 normal Not Available [facility] [address] [place] [address], [address], 01/11/2019 09:02:43 01/12/2001/11/2019 CBC w/ auto diff basophil,abs olute 0.1 K/uL 0.0-0. 3 normal Not Available [facility] [address] [place] [address], [address], 01/11/2019 09:02:43 01/12/2001/11/2019 CBC w/ auto diff % neutrophils 40.6 % 42.0-7 8.0 low Not Available [facility] [address] [place] [address], [address], 01/11/2019 09:02:43 01/12/2001/11/2019 CBC w/ auto diff % lymphocytes 46.9 % 11.0-4 7.0 normal Not Available [facility] [address] [place] [address], [address], 01/11/2019 09:02:43 01/12/2001/11/2019 CBC w/ auto diff % monocytes 8.2 % 0.0-11 .0 normal Not Available [facility] [address] [place] [address], [address], 01/11/2019 09:02:43 01/12/2001/11/2019 CBC w/ auto diff % eosinophils 3.4 % 0.0-7. 0 normal Not Available [facility] [address] [place] [address], [address], 01/11/2019 09:02:43 01/12/2001/11/2019 CBC w/ auto diff % basophils 0.9 % 0.0-3. 0 normal Not Available [facility] [address] [place] [address], [address], 01/11/2019 09:02:43 01/12/2001/11/2019 CBC w/ auto diff nucleated red cells 0.1 % 0.0-0. 9 normal Not Available [facility] [address] [place] [address], [address], 01/11/2019 09:02:43 01/12/2001/11/2019 CBC w/ auto diff nucleated RBCs, absolute 0.01 K/uL not estab. normal Not Available [facility] [address] [place] [address], [address], 01/11/2019 09:02:43 01/12/2001/11/2019 CMP, serum or plasm a glucose 108 mg/dL 74-100 high Not Available [facility] [address] [place] [address], [address], 01/11/2019 09:17:19 01/12/2001/11/2019 CMP, serum or plasm a blood urea nitrogen 10 mg/dL 6-20 normal Not Available [facility] [address] [place] [address], [address], 01/11/2019 09:17:19 01/12/2001/11/2019 CMP, serum or plasm a creatinine 0.92 mg/dL 0.50-0 .95 normal Not Available [facility] [address] [place] [address], [address], 01/11/2019 09:17:19 01/12/2001/11/2019 CMP, serum or plasm a BUN/creatini ne ratio 11 (calc ) 10-20 normal Not Available [facility] [address] [place] [address], [address], 01/11/2019 09:17:19 01/12/2001/11/2019 CMP, serum or plasm a sodium 139 mmol/ L 136-14 5 normal Not Available [facility] [address] [place] [address], [address], 01/11/2019 09:17:19 01/12/2001/11/2019 CMP, serum or plasm a potassium 4.2 mmol/ L 3.4-5. 0 normal Not Available [facility] [address] [place] [address], [address], 01/11/2019 09:17:19 01/12/2001/11/2019 CMP, serum or plasm a chloride 101 mmol/ L 98-107 normal Not Available [facility] [address] [place] [address], [address], 01/11/2019 09:17:19 01/12/2001/11/2019 CMP, serum or plasm a carbon dioxide 24 mmol/ L 20-32 normal Not Available [facility] [address] [place] [address], [address], 01/11/2019 09:17:19 01/12/2001/11/2019 CMP, serum or plasm a anion gap 14 (calc ) 7-25 normal Not Available [facility] [address] [place] [address], [address], 01/11/2019 09:17:19 01/12/2001/11/2019 CMP, serum or plasm a calcium 9.0 mg/dL 8.6-10 .2 normal Not Available [facility] [address] [place] [address], [address], 01/11/2019 09:17:19 01/12/2001/11/2019 CMP, serum or plasm a total protein 6.8 g/dL 6.4-8. 3 normal Not Available [facility] [address] [place] [address], [address], 01/11/2019 09:17:19 01/12/2001/11/2019 CMP, serum or plasm a albumin 3.9 g/dL 3.5-5. 2 normal Not Available [facility] [address] [place] [address], [address], 01/11/2019 09:17:19 01/12/2001/11/2019 CMP, serum or plasm a globulin 2.9 g/dL_ (calc ) 1.5-4. 5 normal Not Available [facility] [address] [place] [address], [address], 01/11/2019 09:17:19 01/12/2001/11/2019 CMP, serum or plasm a albumin/glob ulin ratio 1.3 (calc ) 1.1-2. 5 normal Not Available [facility] [address] [place] [address], [address], 01/11/2019 09:17:19 01/12/2001/11/2019 CMP, serum or plasm a bilirubin, total 0.4 mg/dL 0.1-1. 2 normal Not Available [facility] [address] [place] [address], [address], 01/11/2019 09:17:19 01/12/2001/11/2019 CMP, serum or plasm a alkaline phosphatase 55 U/L 35-105 normal Not Available [facility] [address] [place], [address], 01/11/2019 09:17:19 01/12/2001/11/2019 CMP, serum or plasm a AST 16 U/L 0-32 normal Not Available [facility] [address] [place] [address], [address], 01/11/2019 09:17:19 01/12/2001/11/2019 CMP, serum or plasm a ALT 12 U/L 0-33 normal Not Available [facility] [address] [place] [address], [address], 01/11/2019 09:17:19 01/12/2001/11/2019 CMP, serum or plasm a GFR 81 >= 60 normal Not Available [facility] [address] [place], [address], 01/11/2019 09:17:19 01/12/2001/11/2019 CMP, serum or plasm [...] month s or longe r. Not Available [facility] [address] [place], [address], 01/11/2019 09:17:19 01/12/2001/12/2020 CBC w/ auto diff white blood cells 5.1 K/uL 3.8-10 .8 normal Not Available [facility] [address] [place] [address], [address], 01/12/2020 09:07:06 01/12/20 20 01/12/2020 CBC w/ auto diff red blood cells 4.59 M/uL 3.80-5 .20 normal Not Available [facility] [address] [place] [address], [address], 01/12/2020 09:07:06 01/12/20 20 01/12/2020 CBC w/ auto diff hemoglobin 13.3 g/dL 12.0-1 6.0 normal Not Available [facility] [address] [place] [address], [address], 01/12/2020 09:07:06 01/12/20 20 01/12/2020 CBC w/ auto diff hematocrit 39.6 % 35.0-4 7.0 normal Not Available [facility] [address] [place] [address], [address], 01/12/2020 09:07:06 01/12/2001/12/2020 CBC w/ auto diff MCV 86 fL 80-100 normal Not Available [facility] [address] [place] [address], [address], 01/12/2020 09:07:06 01/12/2001/12/2020 CBC w/ auto diff MCH 29 pg 26-35 normal Not Available [facility] [address] [place] [address], [address], 01/12/2020 09:07:06 01/12/20 20 01/12/2020 CBC w/ auto diff MCHC 34 g/dL 32-36 normal Not Available [facility] [address] [place] [address], [address], 01/12/2020 09:07:06 01/12/20 20 01/12/2020 CBC w/ auto diff RDW 14.5 % 11.0-1 5.0 normal Not Available [facility] [address] [place] [address], [address], 01/12/2020 09:07:06 01/12/20 20 01/12/2020 CBC w/ auto diff MPV 7.5 fL 6.2-10 .5 normal Not Available [facility] [address] [place] [address], [address], 01/12/2020 09:07:06 01/12/20 20 01/12/2020 CBC w/ auto diff platelet count 268 K/uL 130-40 0 normal Not Available [facility] [address] [place] [address], [address], 01/12/2020 09:07:06 01/12/20 20 01/12/2020 CBC w/ auto diff neutrophil,a bsolute 2.3 K/uL 1.6-8. 4 normal Not Available [facility] [address] [place] [address], [address], 01/12/2020 09:07:06 01/12/20 20 01/12/2020 CBC w/ auto diff lymphocyte,a bsolute 2.1 K/uL 0.4-5. 1 normal Not Available [facility] [address] [place] [address], [address], 01/12/2020 09:07:06 01/12/20 20 01/12/2020 CBC w/ auto diff monocyte,abs olute 0.4 K/uL 0.0-1. 2 normal Not Available [facility] [address] [place] [address], [address], 01/12/2020 09:07:06 01/12/20 20 01/12/2020 CBC w/ auto diff eosinophil,a bsolute 0.2 K/uL 0.0-0. 8 normal Not Available [facility] [address] [place] [address], [address], 01/12/2020 09:07:06 01/12/20 20 01/12/2020 CBC w/ auto diff basophil,abs olute 0.1 K/uL 0.0-0. 3 normal Not Available [facility] [address] [place] [address], [address], 01/12/2020 09:07:06 01/12/20 20 01/12/2020 CBC w/ auto diff % neutrophils 44.0 % 42.0-7 8.0 normal Not Available [facility] [address] [place] [address], [address], 01/12/2020 09:07:06 01/12/2001/12/2020 CBC w/ auto diff % lymphocytes 41.2 % 11.0-4 7.0 normal Not Available [facility] [address] [place] [address], [address], 01/12/2020 09:07:06 01/12/2001/12/2020 CBC w/ auto diff % monocytes 8.1 % 0.0-11 .0 normal Not Available [facility] [address] [place] [address], [address], 01/12/2020 09:07:06 01/12/2001/12/2020 CBC w/ auto diff % eosinophils 4.3 % 0.0-7. 0 normal Not Available [facility] [address] [place] [address], [address], 01/12/2020 09:07:06 01/12/20 20 01/12/2020 CBC w/ auto diff % basophils 2.4 % 0.0-3. 0 normal Not Available [facility] [address] [place] [address], [address], 01/12/2020 09:07:06 01/12/2001/12/2020 CBC w/ auto diff nucleated red cells 0.0 % 0.0-0. 9 normal Not Available [facility] [address] [place] [address], [address], 01/12/2020 09:07:06 01/12/2001/12/2020 CBC w/ auto diff nucleated RBCs, absolute 0.00 K/uL not estab. normal Not Available [facility] [address] [place] [address], [address], 01/12/2020 09:07:06 01/12/20 20 01/12/2020 CMP, serum or plasm a glucose 105 mg/dL 74-100 high Not Available [facility] [address] [place] [address], [address], 01/12/2020 09:32:21 01/12/20 20 01/12/2020 CMP, serum or plasm a blood urea nitrogen 8 mg/dL 6-20 normal Not Available [facility] [address] [place] [address], [address], 01/12/2020 09:32:21 01/12/20 20 01/12/2020 CMP, serum or plasm a creatinine 0.86 mg/dL 0.50-0 .95 normal Not Available [facility] [address] [place] [address], [address], 01/12/2020 09:32:21 01/12/20 20 01/12/2020 CMP, serum or plasm a BUN/creatini ne ratio 9 (calc ) 10-20 low Not Available [facility] [address] [place] [address], [address], 01/12/2020 09:32:21 01/12/20 20 01/12/2020 CMP, serum or plasm a sodium 139 mmol/ L 136-14 5 normal Not Available [facility] [address] [place] [address], [address], 01/12/2020 09:32:21 01/12/20 20 01/12/2020 CMP, serum or plasm a potassium 4.2 mmol/ L 3.4-5. 0 normal Not Available [facility] [address] [place] [address], [address], 01/12/2020 09:32:21 01/12/20 20 01/12/2020 CMP, serum or plasm a chloride 103 mmol/ L 98-107 normal Not Available [facility] [address] [place] [address], [address], 01/12/2020 09:32:21 01/12/20 20 01/12/2020 CMP, serum or plasm a carbon dioxide 28 mmol/ L 20-32 normal Not Available [facility] [address] [place] [address], [address], 01/12/2020 09:32:21 01/12/20 20 01/12/2020 CMP, serum or plasm a anion gap 8 (calc ) 7-25 normal Not Available [facility] [address] [place] [address], [address], 01/12/2020 09:32:21 01/12/2001/12/2020 CMP, serum or plasm a calcium 9.1 mg/dL 8.6-10 .2 normal Not Available [facility] [address] [place] [address], [address], 01/12/2020 09:32:21 01/12/2001/12/2020 CMP, serum or plasm a total protein 6.7 g/dL 6.4-8. 3 normal Not Available [facility] [address] [place] [address], [address], 01/12/2020 09:32:21 01/12/2001/12/2020 CMP, serum or plasm a albumin 4.1 g/dL 3.5-5. 2 normal Not Available [facility] [address] [place] [address], [address], 01/12/2020 09:32:21 01/12/2001/12/2020 CMP, serum or plasm a globulin 2.6 g/dL_ (calc ) 1.5-4. 5 normal Not Available [facility] [address] [place] [address], [address], 01/12/2020 09:32:21 01/12/2001/12/2020 CMP, serum or plasm a albumin/glob ulin ratio 1.6 (calc ) 1.1-2. 5 normal Not Available [facility] [address] [place] [address], [address], 01/12/2020 09:32:21 01/12/20 20 01/12/2020 CMP, serum or plasm a bilirubin, total 0.3 mg/dL 0.1-1. 2 normal Not Available [facility] [address] [place] [address], [address], 01/12/2020 09:32:21 01/12/20 20 01/12/2020 CMP, serum or plasm a alkaline phosphatase 58 U/L 35-105 normal Not Available [facility] [address] [place] [address], [address], 01/12/2020 09:32:21 01/12/20 20 01/12/2020 CMP, serum or plasm a AST 20 U/L 0-32 normal Not Available [facility] [address] [place] [address], [address], 01/12/2020 09:32:21 01/12/2001/12/2020 CMP, serum or plasm a ALT 12 U/L 0-33 normal Not Available [facility] [address] [place] [address], [address], 01/12/2020 09:32:21 01/12/2001/12/2020 CMP, serum or plasm a GFR 87 >= 60 normal Not Available [facility] [address] [place] [address], [address], 01/12/2020 09:32:21 01/12/2001/12/2020 CMP, serum or plasm [...] month s or longe r. Not Available [facility] [address] [place] [address], [address], 01/12/2020 09:32:21 01/04/2001/03/2022 COMPL ETE BLOOD COUNT white blood cells 6.9 K/uL 3.8-10 .8 normal Not Available [facility] [address] [place] [address], [address], 01/03/2022 09:22:33 01/04/20 22 01/03/2022 COMPL ETE BLOOD COUNT red blood cells 4.85 M/uL 3.80-5 .20 normal Not Available [facility] [address] [place] [address], [address], 01/03/2022 09:22:33 01/04/20 22 01/03/2022 COMPL ETE BLOOD COUNT hemoglobin 13.6 g/dL 12.0-1 6.0 normal Not Available [facility] [address] [place] [address], [address], 01/03/2022 09:22:33 01/04/20 22 01/03/2022 COMPL ETE BLOOD COUNT hematocrit 40.8 % 35.0-4 7.0 normal Not Available [facility] [address] [place] [address], [address], 01/03/2022 09:22:33 01/04/20 22 01/03/2022 COMPL ETE BLOOD COUNT MCV 84 fL 80-100 normal Not Available [facility] [address] [place] [address], [address], 01/03/2022 09:22:33 01/04/20 22 01/03/2022 COMPL ETE BLOOD COUNT MCH 28 pg 26-35 normal Not Available [facility] [address] [place] [address], [address], 01/03/2022 09:22:33 01/04/20 22 01/03/2022 COMPL ETE BLOOD COUNT MCHC 33 g/dL 32-36 normal Not Available [facility] [address] [place] [address], [address], 01/03/2022 09:22:33 01/04/20 22 01/03/2022 COMPL ETE BLOOD COUNT RDW 15.1 % 11.0-1 5.0 high Not Available [facility] [address] [place] [address], [address], 01/03/2022 09:22:33 01/04/20 22 01/03/2022 COMPL ETE BLOOD COUNT MPV 7.1 fL 6.2-10 .5 normal Not Available [facility] [address] [place] [address], [address], 01/03/2022 09:22:33 01/04/20 22 01/03/2022 COMPL ETE BLOOD COUNT platelet count 328 K/uL 130-40 0 normal Not Available [facility] [address] [place] [address], [address], 01/03/2022 09:22:33 01/04/20 22 01/03/2022 COMPL ETE BLOOD COUNT neutrophil,a bsolute 2.9 K/uL 1.6-8. 4 normal Not Available [facility] [address] [place] [address], [address], 01/03/2022 09:22:33 01/04/20 22 01/03/2022 COMPL ETE BLOOD COUNT lymphocyte,a bsolute 3.0 K/uL 0.4-5. 1 normal Not Available [facility] [address] [place] [address], [address], 01/03/2022 09:22:33 01/04/20 22 01/03/2022 COMPL ETE BLOOD COUNT monocyte,abs olute 0.7 K/uL 0.0-1. 2 normal Not Available [facility] [address] [place] [address], [address], 01/03/2022 09:22:33 01/04/20 22 01/03/2022 COMPL ETE BLOOD COUNT eosinophil,a bsolute 0.2 K/uL 0.0-0. 8 normal Not Available [facility] [address] [place] [address], [address], 01/03/2022 09:22:33 01/04/20 22 01/03/2022 COMPL ETE BLOOD COUNT basophil,abs olute 0.1 K/uL 0.0-0. 3 normal Not Available [facility] [address] [place] [address], [address], 01/03/2022 09:22:33 01/04/20 22 01/03/2022 COMPL ETE BLOOD COUNT % neutrophils 42.0 % 42.0-7 8.0 normal Not Available [facility] [address] [place] [address], [address], 01/03/2022 09:22:33 01/04/2001/03/2022 COMPL ETE BLOOD COUNT % lymphocytes 42.8 % 11.0-4 7.0 normal Not Available [facility] [address] [place] [address], [address], 01/03/2022 09:22:33 01/04/20 22 01/03/2022 COMPL ETE BLOOD COUNT % monocytes 10.6 % 0.0-11 .0 normal Not Available [facility] [address] [place] [address], [address], 01/03/2022 09:22:33 01/04/2001/03/2022 COMPL ETE BLOOD COUNT % eosinophils 3.5 % 0.0-7. 0 normal Not Available [facility] [address] [place] [address], [address], 01/03/2022 09:22:33 01/04/20 22 01/03/2022 COMPL ETE BLOOD COUNT % basophils 1.1 % 0.0-3. 0 normal Not Available [facility] [address] [place] [address], [address], 01/03/2022 09:22:33 01/04/20 22 01/03/2022 COMPL ETE BLOOD COUNT nucleated red cells 0.0 % 0.0-0. 9 normal Not Available [facility] [address] [place] [address], [address], 01/03/2022 09:22:33 01/04/20 22 01/03/2022 COMPL ETE BLOOD COUNT nucleated RBCs, absolute 0.00 K/uL not estab. normal Not Available [facility] [address] [place] [address], [address], 01/03/2022 09:22:33 01/04/20 22 01/03/2022 COMP. METAB OLIC PANEL glucose 108 mg/dL 74-100 high Not Available [facility] [address] [place] [address], [address], 01/03/2022 09:58:10 01/04/20 22 01/03/2022 COMP. METAB OLIC PANEL blood urea nitrogen 8 mg/dL 6-20 normal Not Available [facility] [address] [place] [address], [phone], 01/03/2022 09:58:10 01/04/20 22 01/03/2022 COMP. METAB OLIC PANEL creatinine 0.91 mg/dL 0.50-0 .95 normal Not Available [facility] [address] [place] [address], [phone], 01/03/2022 09:58:10 01/04/20 22 01/03/2022 COMP. METAB OLIC PANEL BUN/creatini ne ratio 9 (calc ) 10-20 low Not Available [facility] [address] [place] [address], [address], 01/03/2022 09:58:10 01/04/20 22 01/03/2022 COMP. METAB OLIC PANEL sodium 139 mmol/ L 136-14 5 normal Not Available [facility] [address] [place] [address], [address], 01/03/2022 09:58:10 01/04/20 22 01/03/2022 COMP. METAB OLIC PANEL potassium 4.5 mmol/ L 3.4-5. 0 normal Not Available [facility] [address] [place] [address], [address], 01/03/2022 09:58:10 01/04/20 22 01/03/2022 COMP. METAB OLIC PANEL chloride 100 mmol/ L 98-107 normal Not Available [facility] [address] [place] [address], [address], 01/03/2022 09:58:10 01/04/20 22 01/03/2022 COMP. METAB OLIC PANEL carbon dioxide 28 mmol/ L 22-31 normal Not Available [facility] [address] [place] [address], [address], 01/03/2022 09:58:10 01/04/20 22 01/03/2022 COMP. METAB OLIC PANEL anion gap 11 (calc ) 7-25 normal Not Available [facility] [address] [place] [address], [address], 01/03/2022 09:58:10 01/04/20 22 01/03/2022 COMP. METAB OLIC PANEL calcium 9.8 mg/dL 8.6-10 .2 normal Not Available [facility] [address] [place] [address], [address], 01/03/2022 09:58:10 01/04/20 22 01/03/2022 COMP. METAB OLIC PANEL total protein 7.9 g/dL 6.4-8. 3 normal Not Available [facility] [address] [place] [address], [address], 01/03/2022 09:58:10 01/04/20 22 01/03/2022 COMP. METAB OLIC PANEL albumin 4.4 g/dL 3.5-5. 2 normal Not Available [facility] [address] [place] [address], [address], 01/03/2022 09:58:10 01/04/20 22 01/03/2022 COMP. METAB OLIC PANEL globulin 3.5 g/dL_ (calc ) 1.5-4. 5 normal Not Available [facility] [address] [place] [address], [address], 01/03/2022 09:58:10 01/04/20 22 01/03/2022 COMP. METAB OLIC PANEL albumin/glob ulin ratio 1.3 (calc ) 1.1-2. 5 normal Not Available [facility] [address] [place] [address], [address], 01/03/2022 09:58:10 01/04/20 22 01/03/2022 COMP. METAB OLIC PANEL bilirubin, total 0.5 mg/dL 0.1-1. 2 normal Not Available [facility] [address] [place] [address], [address], 01/03/2022 09:58:10 01/04/20 22 01/03/2022 COMP. METAB OLIC PANEL alkaline phosphatase 73 U/L 30-121 normal Not Available [facility] [address] [place] [address], [address], 01/03/2022 09:58:10 01/04/20 22 01/03/2022 COMP. METAB OLIC PANEL AST 25 U/L 0-32 normal Not Available [facility] [address] [place] [address], [address], 01/03/2022 09:58:10 01/04/20 22 01/03/2022 COMP. METAB OLIC PANEL ALT 17 U/L 0-33 normal Not Available [facility] [address] [place], [address], 01/03/2022 09:58:10 01/04/2001/03/2022 COMP. METAB OLIC PANEL [...] s/KDO QI/gf r_cal culat orPed Not Available [facility] [address] [place] [address], [address], 01/03/2022 09:58:10 01/04/20 22 01/03/2022 LIPID PROFI LE HDL cholesterol 63 mg/dL 50-242 normal Not Available [facility] [address] [place], [address], 01/03/2022 09:58:12 01/04/20 22 01/03/2022 LIPID PROFI LE triglyceride s 162 mg/dL 0-149 high TRIGL YCERI DE RANGE S SUSI L: < 150 BORDE RLINE HIGH: 150 - 199 HIGH: 200 - 499 VERY HIGH: > OR = 500 Not Available [facility] [address] [place], [address], 01/03/2022 09:58:12 01/04/20 22 01/03/2022 LIPID PROFI LE cholesterol 264 mg/dL 0-199 high ELVA STERO L (TOTA L) RANGE S WU ABLE: < 200 BORDE RLINE : 200 - 239 HIGHE R RISK: > 239 Not Available [facility] [address] [place], [address], 01/03/2022 09:58:12 01/04/20 22 01/03/2022 LIPID PROFI LE LDL cholesterol 169 mg/dL _(diaz c) 0-99 high LDL ELVA STERO L RANGE S OPTIM AL: < 100 NEAR/ ABOVE OPTIM AL: 100 - 129 BORDE RLINE HIGH: 130 - 159 HIGH: 160 - 189 VERY HIGH: > OR = 190 Not Available [facility] [address] [facility], [place], [address], 01/03/2022 09:58:12 05/18/19 20 05/14/2019 MAMMO , scree mary beth, tomos ynthe sis, bilat eral, w/ CAD No observ ation record ed. [address] [facility] [address], [id number], 01/15/2020 12:48:48 05/22/19 21 05/16/2020 MAMMO , scree mary beth, tomos ynthe sis, bilat eral, w/ CAD No observ ation record ed. [address], [place], [address], 01/14/2021 09:10:34 01/04/20 22 05/23/2021 MAMMO , scree mary beth, bilat eral, w/ CAD No observ ation record ed. [address] (Med Record) [address] [place] [address] [address], [place], [address], 01/03/2022 17:21:15 01/10/20 22 01/09/2022 CT, abdom en + pelvi s, w/ contr ast No observ ation record ed. [email or web address] [address], [place], [address], 01/16/2022 13:33:50 Result Notes None recorded. 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 Procedures Surgical History Date Name Laterality Status Provider Name and Address Organization Details Recorded Time 07/05/19 22 Pacemaker completed Graciela Escudero [facility] 01/03/2022 10:18:39 04/21/18 97 Total Hysterectomy completed Tanesha Chino [facility] 01/12/2020 09:16:55 Imaging Results None recorded. Procedure Notes None recorded. Medical Equipment None Reported. Allergies Allergen ID Allergen Name Allergen Category Reaction Reaction Severity Criticality Documentation Date Start Date Code Code System Note Provider Name and Address Organization Details Recorded Time 414748 Calan medicatio n other severe Not available 01/11/2019 22483 0 RxNorm panic attac k Medinacharity Urena [facility] 9 09:09:08 602408 hydrocodo ne Not available Not available Not available Not available 01/11/2019 5489 RxNorm pvcs and pacs Medina Urena [facility] 9 09:09:18 887204 Prilosec medicatio n Not available Not available Not available 01/11/2019 21337 5 RxNorm Medina Urena [facility] 9 09:09:26 347999 Xarelto medicatio n itching severe Not available 01/11/2019 14816 99 RxNorm Medina Urena [facility] 9 09:03:59 Medications Name Sig Start [...] Updated DateTime 2 165.1 cm 45.4 kg/m2 138789. 07 g 97.7 [degF] 72 /min 98 % 98 % 120 mm[Hg] 77 mm[Hg] Graciela Escudero [facility] 2 10:26:19 Date Recorded Body height Body mass index (BMI) Body weight Body temperature Heart rate Oxygen saturation Oxygen saturation in Arterial blood by Pulse oximetry Systolic blood pressure Diastolic blood pressure Provider Name and Address Organization Details Last Updated DateTime 1 165.1 cm 46.1 kg/m2 227219. 44 g 97.5 [degF] 67 /min 96 % 96 % 125 mm[Hg] 79 mm[Hg] Tanesha Chino [facility] 1 10:04:34 Date Recorded Body weight Body mass index (BMI) Body height Heart rate Oxygen saturation Oxygen saturation in Arterial blood by Pulse oximetry Body temperature Systolic blood pressure Diastolic blood pressure Provider Name and Address Organization Details Last Updated DateTime 9 968215. 64 g 47.1 kg/m2 165.1 cm 72 /min 97 % 97 % 97.7 [degF] 112 mm[Hg] 72 mm[Hg] Medina Urena [facility] 9 09:15:16 Date Recorded Body height Oxygen saturation Oxygen saturation in Arterial blood by Pulse oximetry Heart rate Body mass index (BMI) Body weight Systolic blood pressure Diastolic blood pressure Provider Name and Address Organization Details Last Updated DateTime 0 165.1 cm 98 % 98 % 75 /min 46.1 kg/m2 474805. 09 g 130 mm[Hg] 80 mm[Hg] Tanesha Chino [facility] 0 09:19:11 Social History Question Answer Notes LastModified by Organizat ion Details LastModified Time Tobacco Smoking Status Never Smoker Medina Urena [facility] 01/11/2019 09:11:34 How Much Tobacco Do You Chew? None Information not available 01/11/2019 Have You Been To An Area Known To Be High Risk For COVID-19? No [email or web address] Information not available 01/12/2020 Live Alone Or With Others? With Others Information not available 01/12/2020 Education Level College [email or web address] Informati on not available 01/12/2020 Learning Preferences Verbal/writt en Information not available 01/10/2021 Marital Status [email or web address] Informatio n not available 01/12/2020 What Was The Date Of Your Most Recent Tobacco Screening? 01/03/2022 [email or web address] Information not available 01/03/2022 How Many Children Do You Have? 1 [email or web address] Information not available 01/12/2020 What Is Your Relationship Status? [email or web address] Information not available 01/10/2021 How Much Tobacco Do You Smoke? No Information not available 01/11/2019 Has Tobacco Cessation Counseling Been Provided? No [email or web address] Information not available 01/10/2021 How Many Years Have You Smoked Tobacco? 0 Information not available 01/11/2019 Sex: Female Functional Status Question Answer Note LastModified by Organizat ion Details LastModified Time Do you use any illicit or recreational drugs? No [email or web address] Information not available 01/10/2021 Do you or have you ever used any other forms of tobacco or nicotine? No [email or web address] Information not available 01/10/2021 What is your level of alcohol consumption? None Information not available 01/11/2019 Do you or have you ever used smokeless tobacco? Never used smokeless tobacco Information not available 01/11/2019 What is your occupation? unemployed [email or web address] Information not available 01/12/2020 Do you or have you ever used e-cigarettes or vape? Never used electronic cigarettes Information not available 01/11/2019 Mental Status None recorded. Family History Relationship Description Onset Age of this Age Resolved Age Notes LastModified by Organization Details LastModified Time Father No current problems or disability [email or web address] Not available 01/11 09:15:22 Mother No current problems or disability [email or web address] Not available 01/11 09:15:22 Medical History Condition Response Hypertension Y Gynecological HistoryNo gynecological history recorded. Obstetrics History GPAL:G 0 P 0 0 0 0 Immunizations Vaccine Type Date Status Note Provider Nam e and Address Organization Details Recorded Time COVID-19, mRNA, LNP-S, PF, 100 mcg/0.5mL dose or 50 mcg/0.25mL dose 06/20/2020 completed Tanesha Chino [facility] 01/10/2021 10:01:11 COVID-19, mRNA, LNP-S, PF, 100 mcg/0.5mL dose or 50 mcg/0.25mL dose 07/18/2020 completed Tanesha Chino [facility] 01/10/2021 10:01:17 Past Encounters Encounter ID Performer Location Encounter Start Date Encounter Closed Date Diagnosis/Indication Diagnosis SNOMED-CT Code Diagnosis ICD10 Code Diagnosis Note [id number] JEAN CRUZ MD [facility] [address] [address] 01/01/2017 09:05:16 01/01/2017 11:50:36 [id number] JEAN CRUZ MD [facility] [address] [place] [address] 01/07/2018 08:49:47 01/07/2018 10:46:01 [id number] JEAN CRUZ MD H[facility] [place] [facility] [address] [place] [address] 01/11/2019 08:55:10 01/11/2019 11:07:29 History of non-Hodgkins lymphoma 494653740 Z85.72 History of radiation therapy to chest 0420578691 9104 Z92.3 Body mass index 40+ - severely obese 438390733 Z68.42 Antithromb in III deficiency 99154868 D68.59 Long-term drug therapy 012408312 Z79.183 [id number] MILKA WALKER MD [place] [facility] [address] [place] [address] 02/11/2019 13:30:03 02/11/2019 15:57:14 [id number] SHELBY DANIELS [place] [address] [place] [address] 02/11/2019 14:39:21 02/11/2019 15:44:54 [id number] JEAN CRUZ MD H[facility]C [facility] [address] [place] [address] 01/12/2020 09:03:57 01/12/2020 11:16:40 History of non-Hodgkins lymphoma 347955818 Z85.72 [id number] JEAN CRUZ MD HEM[facility]C [facility] [address] [place] [address] 01/10/2021 09:05:14 01/10/2021 12:50:40 History of non-Hodgkins lymphoma 767073886 Z85.72 Antithromb in III deficiency 63549833 D68.59 History of radiation therapy to chest 1001731305 9104 Z92.3 Long-term current use of anticoagulant 229764252 Z79.01 Body mass index 40+ - severely obese 071460660 Z68.42 [id number] JEAN CRUZ MD [facility] [address] [place] [address] 01/03/2022 09:08:05 01/03/2022 11:54:52 Antithrombin III deficiency 18491700 D68.59 History of radiation therapy to chest 3548985225 9104 Z92.3 History of non-Hodgkins lymphoma 734598710 Z85.72 Long-term current use of anticoagulant 212169873 Z79.01 Left upper quadrant pain 676423669 R10.12 Body mass index 40+ - severely obese 587888175 Z68.42 Health Concerns Section Related Observation LastModified by Organization Detai ls LastModified Time None Recorded Concern Status LastModified by Organization Details LastModified Time None Recorded Advance Directives Directive None Recorded Payers Insurance Date Sequence Insurance Name Policy Number Policy Lynn Covered Member ID Lynn Member ID Guarantor Name 01/15/2022 2 [place] [facility]PPO[facility] Jessica Odell [id number] Jessica Odell 01/11/2022 2 [facility] [employer] - MULTIPLAN (PPO) Jessica Odell [id number] Jessica Odell 01/10/2022 1 [facility] (MEDICAID HMO) Jessica Odell [id number] Jessica Odell 01/10/2022 GENERIC INSURANC E - MOVED-HOLD Jessica Odell 08/23/2021 1 [place] [id number] Oskar Odell [id number] Jessica Odell Notes Date Note Type Note Provider Name and Address Organization Details Recorded Time 9 text/html HPIReported bypatient.Advanced Directives / BioBank AuthorizationsAdvanced Directives? NO Dischargedischarge disposition stable Distress ScreeningHas the distress screening been completed in the last 45 days? YES; Distress level 0 no stress Practical Problemsno practical problems Family Problemsno family problems Emotional Problemsno emotional problems Spiritual/Religiousspiritua l/nondenominational problems? NO Physical Problemsno physical problems Nutrition ScreeningNutrition Screening YES; special diet restrictions? describe:; Nutrition counseling last 6 months? NO; Nutrition Protocol implemented? NO Ms. 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 She had 8 cycles of ProMACE-CytaBom chemotherapy, followed by thoracic radiation. Other medical history is significant for anti-thrombin III deficiency, DVT and PE in 2013, continuing on Coumadin, hysterectomy with incidental appendectomy in 1997, arthritis and obesity. JEAN CRUZ MD [address] [place] [address], [phone], [facility] 01/17/2019 19:04:19 0 text/html HPIReported bypatient.Advanced Directives / BioBank AuthorizationsAdvanced Directives? NO Dischargedischarge disposition stable Distress ScreeningHas the distress screening been completed in the last 45 days? YES; Distress level 0 no stress Practical Problemsno practical problems Family Problemsno family problems Emotional Problemsno emotional problems Spiritual/Religiousspiritua l/nondenominational problems? NO Physical Problemsweight loss;weight gain Nutrition ScreeningNutrition Screening YES; special diet restrictions? describe:; Nutrition counseling last 6 months? NO; Nutrition Protocol implemented? NO Ms. 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 She had 8 cycles of ProMACE-CytaBom chemotherapy, followed by thoracic radiation. Other medical history is significant for anti-thrombin III deficiency, DVT and PE in 2013, continuing on Coumadin, hysterectomy with incidental appendectomy in 1997, arthritis and obesity. JEAN CRUZ MD [address] [place] [address], [address], [facility] 01/15/2020 12:49:09 1 text/html [place] HPIReported bypatient.patient accompanied by:patient accompanied by spouse Advanced Directives / BioBank AuthorizationsAdvanced Directives? NO Dischargedischarge mode ambulatory; discharge disposition stable Distress ScreeningHas the distress screening been completed in the last 45 days? YES; Distress level 0 no stress Practical Problemsno practical problems Family Problemsno family problems Emotional Problemsno emotional problems Spiritual/Religiousspiritua l/nondenominational problems? NO Physical Problemsno physical problems Nutrition ScreeningNutrition Screening YES; special diet restrictions? describe:; Nutrition counseling last 6 months? NO; Nutrition Protocol implemented? NO Ms. 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 She had 8 cycles of ProMACE-CytaBom chemotherapy, followed by thoracic radiation. Other medical history is significant for anti-thrombin III deficiency, DVT and PE in 2013, continuing on Coumadin, hysterectomy with incidental appendectomy in 1997, arthritis and obesity. JEAN CRUZ MD [address] [place] [address], [address], [facility] 01/14/2021 09:13:56 2 text/html HPIReported bypatient.patient accompanied by:patient accompanied by spouse Advanced Directives / BioBank AuthorizationsAdvanced Directives? NO Dischargedischarge mode ambulatory; discharge disposition stable Distress ScreeningHas the distress screening been completed in the last 45 days? YES; Distress level 0 no stress Practical Problemsno practical problems Family Problemsno family problems Emotional Problemsno emotional problems Spiritual/Religiousspiritua l/nondenominational problems? NO Physical Problemsno physical problems Nutrition ScreeningNutrition Screening YES; special diet restrictions? describe:; Nutrition counseling last 6 months? NO; Nutrition Protocol implemented? NO Ms. 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 She had 8 cycles of ProMACE-CytaBom chemotherapy, followed by thoracic radiation. Other medical history is significant for anti-thrombin III deficiency, DVT and PE in 2013, continuing on Coumadin, hysterectomy with incidental appendectomy in 1997, arthritis and obesity. JEAN CRUZ MD [address] [place] [address], [phone], [facility] 01/05/2022 20:04:05 OBGyn Episode No OBEpisode recorded.
--- OUTSIDE RECORDS SUMMARY | 2024-10-08 09:04 | XMS_ITS | Encounter Summary ---
Author Organization Healthcare Address [address] [place] [address] Care Team Providers Care Antique Finisher Name Role Phone Martin Khan MD Primary Care Provider [phone] Encounter Details Date Type Department Care Team (Late st Contact Info) Description 01/03/2022 Orders Only [facility] at [facility] [address] [place] [phone] Susannah Ballard MD [address] [address] Social History Tobacco Use Types Packs/Day Years Used Date Smoking Tobacco: Never Assessed Comments Unknown Sex and Gender Information Value Date Recorded Sex Assigned at Not on file Legal Sex Female 6:07 PM EDT Gender Identity Not on file Sexual Orientation Not on file documented as of this encounter Plan of Treatment Not on file documented as of this encounter Procedures Procedure Name Priority Date/Time Associated Diagnosis Comments COMPREHENSIVE METABOLIC PANEL, PLASMA Routine 01/03/2022 8:55 AM EDT documented in this encounter Results * (ABNORMAL) Comprehensive Metabolic Panel, Plasma (01/03/2022 8:55 AM EDT) External Glucose 108(H) 74 - 100 mg/dL [facility] External BUN 8 6 - 20 mg/dL [facility] External Creatinine Blood 0.91 0.50 - 0.95 mg/dL [facility] External BUN/Creat Ratio 9(L) 10 - 20 (calc) [facility] External Sodium 139 136 - 145 mmol/L [facility] External Potassium 4.5 3.4 - 5.0 mmol/L [facility] External Chloride 100 98 - 107 mmol/L [facility] External Carbon Dioxide 28 22 - 31 mmol/L [facility] External Anion Gap (AG) 11 7 - 25 (calc) [facility] External Calcium 9.8 8.6 - 10.2 mg/dL [facility] External Total Protein 7.9 6.4 - 8.3 g/dL [facility] External Albumin 4.4 3.5 - 5.2 g/dL [facility] External Globulin 3.5 1.5 - 4.5 g/dL (calc) [facility] External Albumin/Globulin Ratio 1.3 1.1 - 2.5 (calc) [facility] External Bilirubin Total 0.5 0.1 - 1.2 mg/dL [facility] External Alkaline Phosphatase 73 30 - 121 U/L [facility] External AST (SGOT) 25 0 - 32 U/L [facility] External ALT (SGPT) 17 0 - 33 U/L [facility] External Estimated GFR 73 >=60 [facility] Comment: NOTE New calculation for GFR (CKD-EPI 2020) is formulated without race adjustment factors at the recommendation of the National Kidney Foundation and [place] [employer]. This calculation has not been validated in women. For pediatric patients refer to https://www.kidney.org/professionals/KDOQI/gfr_calculatorPed 01/03/2022 8:55 AM EDT 01/03/2022 9:15 AM EDT us Susannah Ballard MD LAB BLOOD ORDERABLES Final Res ult [facility] [place] [address], documented in this encounter Visit Diagnoses Not on filedocumented in this encounter Additional Health Concerns Assessment Noted Time A Body Mass Index follow-up plan has been documented for the patient 12/31/2022 6:20 PM EDT documented as of this encounter Care Teams Antique Finisher Relationship Specialty Start Date End Date Martin Khan MD [address] [place] [address] PCP - General 09/01/20 documented as of this encounter
--- OUTSIDE RECORDS SUMMARY | 2024-10-08 09:04 | XMS_ITS | Encounter Summary ---
Author Organization Healthcare Address [address] [place] [address] Care Team Providers Care Hammer Runner Name Role Phone Martni Khan MD Primary Care Provider [phone] Encounter Details Date Type Department Care Team (Late st Contact Info) Description 01/03/2022 Orders Only [facility] at [facility] [address] [place] [phone] Susannah Ballard MD [address] [phone] Social History Tobacco Use Types Packs/Day Years [...] Procedure Name Priority Date/Time Associated Diagnosis Comments LIPID PROFILE, PLASMA Routine 01/03/2022 8:55 AM EDT documented in this encounter Results * (ABNORMAL) Lipid Profile, Plasma (01/03/2022 8:55 AM EDT) External HDL Cholesterol 63 50 - 242 mg/dL [facility] External Triglycerides 162(H) 0 - 149 mg/dL [facility] Comment: TRIGLYCERIDE RANGES NORMAL: < 150 BORDERLINE HIGH: 150 - 199 HIGH: 200 - 499 VERY HIGH: > OR = 500 External Cholesterol 264(H) 0 - 199 mg/dL [facility] Comment: CHOLESTEROL (TOTAL) RANGES DESIRABLE: < 200 BORDERLINE: 200 - 239 HIGHER RISK: > 239 External LDL Cholesterol 169(H) 0 - 99 mg/dl (calc) [facility] Comment: LDL CHOLESTEROL RANGES OPTIMAL: < 100 NEAR/ABOVE OPTIMAL: 100 - 129 BORDERLINE HIGH: 130 - 159 HIGH: 160 - 189 VERY HIGH: > OR = 190 01/03/2022 8:55 AM EDT 01/03/2022 9:15 AM EDT us Susannah Ballard MD LAB BLOOD ORDERABLES Final Res ult [facility] [address] [place] [address], documented in this encounter Visit Diagnoses Not on filedocumented in this encounter Additional Health Concerns Assessment Noted Time A Body Mass Index follow-up plan has been documented for the patient 12/31/2022 6:20 PM EDT documented as of this encounter Care Teams Hammer Runner Relationship Specialty Start Date End Date Martin Khan MD [address] [facility] [address] [place] [address] PCP - General 09/01/20 documented as of this encounter
--- OUTSIDE RECORDS SUMMARY | 2024-10-08 09:05 | XMS_ITS | Clinical Summary ---
Author Organization [facility] Address [address] [id number] Care Team Providers Care Security System Analyst Name Role Phone Martin Khan MD Primary Care Provider [phone] Social History Tobacco Use Types Packs/Day Years Used Date Smoking Tobacco: Never Assessed Comments Unknown Sex and Gender Information Value Date Recorded Sex Assigned at Not on file Legal Sex Female 6:07 PM EDT Gender Identity Not on file Sexual Orientation Not on file Last Filed Vital Signs Vital Sign Reading Time Taken Comments Blood Pressure 144/88 11/06/2022 4:58 PM EDT Pulse 135 11/06/2022 4:58 PM EDT Temperature - - Respiratory Rate - - Oxygen Saturation - - Inhaled Oxygen Concentration - - Weight 113 kg (250 lb) 11/06/2022 4:58 PM EDT Height 165.1 cm (5' 5 ) 11/06/2022 4:58 PM EDT Body Mass Index 41.6 11/06/2022 4:58 PM EDT Plan of Treatment Health Maintenance Due Date Last Done Comments [facility]-Depression Screening 1963 [facility]-HIV Screening 1965 [facility]-Hepatitis C Screening 1965 [facility]-Infant/Child/Adol SDOH Screenings 1963 [facility]- SDOH Screenings 12/24/1981 [facility]-Adult SDOH Screenings 12/24/1981 [facility]-Pap Smear 12/24/1984 [facility]-Cervical Cancer Screening 12/24/1993 [facility]-HPV/Cotest 12/24/1993 CT Colonography 12/24/2008 Colonoscopy 12/24/2008 FIT-DNA 12/24/2008 FIT 12/24/2008 FOBT 12/24/2008 Sigmoidoscopy 12/24/2008 [facility]-Colorectal Cancer Screening 12/24/2008 [facility]-Breast Cancer Screening 12/24/2013 [facility]-Pneumococcal Vaccine: 50+ Years (1 of 1 - PCV) 12/24/2013 [facility]-Zoster Vaccines (1 of 2) 12/24/2013 [id number] Vaccine (6 - 2023- season) 2023 03/14/2021, 07/19/2020, 07/18/2020, Additional history exists [facility]-RSV Vaccine: 60+ Years or (1 - Risk 60-74 years 1-dose series) 2023 [facility]-Influenza Vaccine (Season Ended) 2024 [facility]-DTaP,Tdap,and Td Vaccines (2 - Td or Tdap) 11/21/2031 11/20/2021, 06/22/1996 [facility]-Obesity Intervention Completed 01/03/2022, 12/21 HPV Vaccines Aged Out No longer eligi ble based on patient's age to complete this topic [facility]-HIB Vaccines Aged Out No longer e ligible based on patient's age to complete this topic [facility]-Hepatitis A Vaccines Aged Out No longer eligible based on patient's age to complete this topic [facility]-IPV Vaccines Aged Out No longer e ligible based on patient's age to complete this topic [facility]-Rotavirus Vaccines Aged Out No lo nger eligible based on patient's age to complete this topic Insurance [facility] MEDICAID Care Teams Security System Analyst Relationship Specialty Start Date End Date Martin Khan MD [address] [facility] [address] Ronald [facility] - General 09/01/20
--- OUTSIDE RECORDS SUMMARY | 2024-10-08 09:05 | XMS_ITS | Encounter Summary ---
Author Organization Healthcare Address [address] [place] [address] Care Team Providers Care Senior Mechanical Design Engineer Name Role Phone Martin Khan MD Primary Care Provider [phone] Encounter Details Date Type Department Care Team (Late st Contact Info) Description 01/03/2022 Orders Only [facility] at [facility] [address] [place] [phone] Susannah Ballard MD [address] [phone] Social History Tobacco Use Types [...] Procedure Name Priority Date/Time Associated Diagnosis Comments CBC WITH AUTO DIFFERENTIAL Routine 01/03/2022 8:55 AM EDT documented in this encounter Results * (ABNORMAL) CBC and Differential (01/03/2022 8:55 AM EDT) External WBC 6.9 3.8 - 10.8 K/uL [facility] External Red Blood Cell (RBC) 4.85 3.80 - 5.20 M/uL [facility] External Hemoglobin 13.6 12.0 - 16.0 G/DL [facility] External Hematocrit 40.8 35.0 - 47.0 % [facility] External MCV 84 80 - 100 fL [facility] External MCH 28 26 - 35 PG [facility] External MCHC 33 32 - 36 G/DL [facility] External RDW 15.1(H) 11.0 - 15.0 % [facility] External Mean Platelet Volume 7.1 6.2 - 10.5 fL [facility] External Platelets 328 130 - 400 K/uL [facility] External Neutrophil# 2.9 1.6 - 8.4 K/uL [facility] External Lymphocyte# 3.0 0.4 - 5.1 K/uL [facility] External Absolute Monocyte (Abs [place]) 0.7 0.0 - 1.2 K/uL [facility] External Eosinophils# 0.2 0.0 - 0.8 K/uL [facility] External Baso# 0.1 0.0 - 0.3 K/uL [facility] External Neutrophils % 42.0 42.0 - 78.0 % [facility] External Lymphocyte % 42.8 11.0 - 47.0 % [facility] External Monocyte % 10.6 0.0 - 11.0 % [facility] External Eosinophil% 3.5 0.0 - 7.0 % [facility] External Basophil % 1.1 0.0 - 3.0 % [facility] External Nucleated RBC%-Auto 0.0 0.0 - 0.9 % [facility] External Nucleated RBC Absolute 0.00 Not Estab. K/uL [facility] 01/03/2022 8:55 AM EDT 01/03/2022 9:15 AM EDT us Susannah Ballard MD LAB BLOOD ORDERABLES Final Res ult [facility] [place] [address], documented in this encounter Visit Diagnoses Not on filedocumented in this encounter Additional Health Concerns Assessment Noted Time A Body Mass Index follow-up plan has been documented for the patient 12/31/2022 6:20 PM EDT documented as of this encounter Care Teams Senior Mechanical Design Engineer Relationship Specialty Start Date End Date Martin Khan MD [address] [place] [address] [address] [place] [address] PCP - General 09/01/20 documented as of this encounter
[2024-10-08 10:44] LABS: PHA INR Fingerstick 2.9 (0.9-1.1)
== END 2024-10-08 10:50 ==
LOC: ACC 09:02
PROVIDERS: PCP Internal Medicine; Visit Provider Internal Medicine
DX: Z86.718 Personal history of other venous thrombosis and embolism (principal)
CPT/HCPCS: 85610; 99211; G0463

== ENCOUNTER 2024-10-21 08:20 | Outpatient (CLI) | payer OTHER, SELFPAY ==
--- OUTSIDE RECORDS SUMMARY | 2024-10-21 08:23 | XMS_ITS | Encounter Summary ---
Author Organization Healthcare Address [address] [place] [address] Care Team Providers Care Music Assistant Name Role Phone Martin Khan MD Primary Care Provider [phone] Encounter Details Date Type Department Care Team (Late st Contact Info) Description 01/03/2022 Orders Only [facility] at [facility] [address] [place] [phone] Susannah Ballard MD [address] [phone] Social History Tobacco Use Types Packs/Day Years [...] HDL Cholesterol 63 50 - 242 mg/dL [facility] External Triglycerides 162(H) 0 - 149 mg/dL [facility] Comment: TRIGLYCERIDE RANGES NORMAL: < 150 BORDERLINE HIGH: 150 - 199 HIGH: 200 - 499 VERY HIGH: > OR = 500 External Cholesterol 264(H) 0 - 199 mg/dL [facility] Comment: CHOLESTEROL (TOTAL) RANGES DESIRABLE: < 200 BORDERLINE: 200 - 239 HIGHER RISK: > 239 External LDL Cholesterol 169(H) 0 - 99 mg/dl (calc) [facility] Comment: LDL CHOLESTEROL RANGES OPTIMAL: < 100 NEAR/ABOVE OPTIMAL: 100 - 129 BORDERLINE HIGH: 130 - 159 HIGH: 160 - 189 VERY HIGH: > OR = 190 01/03/2022 8:55 AM EDT 01/03/2022 9:15 AM EDT us Susannah Ballrad MD LAB BLOOD ORDERABLES Final Res ult [facility] [address] [place] [address], documented in this encounter Visit Diagnoses Not on filedocumented in this encounter Additional Health Concerns Assessment Noted Time A Body Mass Index follow-up plan has been documented for the patient 12/31/2022 6:20 PM EDT documented as of this encounter Care Teams Music Assistant Relationship Specialty Start Date End Date Martin Khan MD [address] [facility] [address] [place] [address] PCP - General 09/01/20 documented as of this encounter
--- OUTSIDE RECORDS SUMMARY | 2024-10-21 08:23 | XMS_ITS | Encounter Summary ---
Author Organization Healthcare Address [address] [place] [address] Care Team Providers Care Screener And Blender Operator Name Role Phone Martin Khan MD Primary Care Provider [phone] Encounter Details Date Type Department Care Team (Late st Contact Info) Description 01/03/2022 Orders Only [facility] at [facility] [address] [place] [phone] Susannah Ballard MD [address] [phone] Social History Tobacco Use Types [...] External Glucose 108(H) 74 - 100 mg/dL [facility] External BUN 8 6 - 20 mg/dL [facility] External Creatinine Blood 0.91 0.50 - 0.95 mg/dL [facility] External BUN/Creat Ratio 9(L) 10 - 20 (calc) [facility] External Sodium 139 136 - 145 mmol/L [facility] External Potassium 4.5 3.4 - 5.0 mmol/L [facility] External Chloride 100 98 - 107 mmol/L [facility] External Carbon Dioxide 28 22 - 31 mmol/L [facility] External Anion Gap (AG) 11 7 - 25 (calc) [facility] External Calcium 9.8 8.6 - 10.2 mg/dL [facility] External Total Protein 7.9 6.4 - 8.3 g/dL [facility] External Albumin 4.4 3.5 - 5.2 g/dL [facility] External Globulin 3.5 1.5 - 4.5 g/dL (calc) [facility] External Albumin/Globulin Ratio 1.3 1.1 - 2.5 (calc) [facility] External Bilirubin Total 0.5 0.1 - 1.2 mg/dL [facility] External Alkaline Phosphatase 73 30 - 121 U/L [facility] External AST (SGOT) 25 0 - 32 U/L [facility] External ALT (SGPT) 17 0 - 33 U/L [facility] External Estimated GFR 73 >=60 [facility] Comment: NOTE New calculation for GFR (CKD-EPI 2020) is formulated without race adjustment factors at the recommendation of the National Kidney Foundation and [employer]ph[employer]. This calculation has not been validated in women. For pediatric patients refer to https://www.kidney.org/professionals/KDOQI/gfr_calculatorPed 01/03/2022 8:55 AM EDT 01/03/2022 9:15 AM EDT us Susannah Ballard MD LAB BLOOD ORDERABLES Final Res ult [facility] [place] [address], documented in this encounter Visit Diagnoses Not on filedocumented in this encounter Additional Health Concerns Assessment Noted Time A Body Mass Index follow-up plan has been documented for the patient 12/31/2022 6:20 PM EDT documented as of this encounter Care Teams Screener And Blender Operator Relationship Specialty Start Date End Date Martin Khan MD [address] [place] [address] PCP - General 09/01/20 documented as of this encounter
--- OUTSIDE RECORDS SUMMARY | 2024-10-21 08:24 | XMS_ITS | Clinical Summary ---
Author Organization Healthcare Address [address] [place] [address] Care Team Providers Care Director Nurses' Registry Name Role Phone Martin Khan MD Primary Care Provider [phone] Encounters Date Type Department Care Team Description 10/20/2024 [facility] [address] [place] [address] None, None Eye Problem (Sensitive to light) from Last 3 Months Social History Tobacco Use Types Packs/Day Years [...] 12/24/2013 [facility]-Zoster Vaccines (1 of 2) 12/24/2013 [id number] Vaccine (6 - 2023- season) 2023 03/14/2021, 07/19/2020, 07/18/2020, Additional history exists [facility]-RSV Vaccine: 60+ Years or (1 - Risk 60-74 years 1-dose series) 2023 [facility]-Influenza Vaccine (#1) 2024 [facility]-DTaP,Tdap,and Td Vaccines (2 - Td [...] patient's age to complete this topic Insurance [employer] [facility] MEDICAID Care Teams Director Nurses' Registry Relationship Specialty Start Date End Date Martin Khan MD [address] [facility] [address] [place] [address] PCP - General 09/01/20
--- OUTSIDE RECORDS SUMMARY | 2024-10-21 08:24 | XMS_ITS | Encounter Summary ---
Author Organization Healthcare Address [address] [place] [address] Care Team Providers Care Developer Relations Manager Name Role Phone Martin Khan MD Primary Care Provider [phone] Reason for Visit * Reason Onset Date Comments Eye Problem 10/20/2024 Sensitive to lig ht Encounter Details Date Type Department Care Team (Late st Contact Info) Description 10/20/2024 [facility] [address] [place] [address] None, None [address] [place], [place] [id number] Eye Problem (Sensitive to light) Social History Tobacco Use Types Packs/Day Years Used Date Smoking Tobacco: Never Assessed Comments Unknown Sex and Gender Information Value Date Recorded Sex Assigned at Not on file Legal Sex Female 6:07 PM EDT Gender Identity Not on file Sexual Orientation Not on file documented as of this encounter Miscellaneous Notes * Telephone Encounter - Marc Nunn - 10/20/2024 1:54 PM EDT Triage Note 10/20/2024 1:54 PM Called patient. Patient answered and stated she has already followed up with a local continuous miner. * Telephone Encounter - Seda Alfonso - 10/20/2024 10:48 AM EDT Clinical Concern/Question Reason for Call: Left eye sensitive to light and cannot open Best contact number: [phone] (home) Optimal time of day to reach caller: ANYTIME Additional comments/information from caller: None Note: Please do not reply to this message. Follow-up communication and further actions as a result of this message need to be communicated with the patient directly, if the patient is not active onMyChart. If the patient is active on MyChart, they will receive notification of the communication/outcome via [employer]. documented in this encounter Plan of Treatment Not on file documented as of this encounter Visit Diagnoses Not on filedocumented in this encounter Additional Health Concerns Assessment Noted Time A Body Mass Index follow-up plan has been documented for the patient 12/31/2022 6:20 PM EDT documented as of this encounter Care Teams Developer Relations Manager Relationship Specialty Start Date End Date Martin Khan MD [address] [place] [address] [address] [place] [address] PCP - General 09/01/20 documented as of this encounter
--- OUTSIDE RECORDS SUMMARY | 2024-10-21 08:24 | XMS_ITS | Encounter Summary ---
Author Organization Healthcare Address [address] [place] [address] Care Team Providers Care Parliamentary Archivist Name Role Phone Martin Khan MD Primary Care Provider [phone] Encounter Details Date Type Department Care Team (Late st Contact Info) Description 01/03/2022 Orders Only [facility] at [facility] [address] [place] [phone] Susannah Ballard MD [address] [address] Social History Tobacco Use Types [...] External WBC 6.9 3.8 - 10.8 K/uL [facility] External Red Blood Cell (RBC) 4.85 3.80 - 5.20 M/uL [facility] External Hemoglobin 13.6 12.0 - 16.0 G/DL [facility] External Hematocrit 40.8 35.0 - 47.0 % [facility] External MCV 84 80 - 100 fL [facility] External MCH 28 26 - 35 PG [facility] External MCHC 33 32 - 36 G/DL [facility] External RDW 15.1(H) 11.0 - 15.0 % [facility] External Mean Platelet Volume 7.1 6.2 - 10.5 fL [facility] External Platelets 328 130 - 400 K/uL [facility] External Neutrophil# 2.9 1.6 - 8.4 K/uL [facility] External Lymphocyte# 3.0 0.4 - 5.1 K/uL [facility] External Absolute Monocyte (Abs [place]) 0.7 0.0 - 1.2 K/uL [facility] External Eosinophils# 0.2 0.0 - 0.8 K/uL [facility] External Baso# 0.1 0.0 - 0.3 K/uL [facility] External Neutrophils % 42.0 42.0 - 78.0 % [facility] External Lymphocyte % 42.8 11.0 - 47.0 % [facility] External Monocyte % 10.6 0.0 - 11.0 % [facility] External Eosinophil% 3.5 0.0 - 7.0 % [facility] External Basophil % 1.1 0.0 - 3.0 % [facility] External Nucleated RBC%-Auto 0.0 0.0 - 0.9 % [facility] External Nucleated RBC Absolute 0.00 Not Estab. K/uL [facility] 01/03/2022 8:55 AM EDT 01/03/2022 9:15 AM EDT us Susannah Ballard MD LAB BLOOD ORDERABLES Final Res ult [facility] [place] [address], documented in this encounter Visit Diagnoses Not on filedocumented in this encounter Additional Health Concerns Assessment Noted Time A Body Mass Index follow-up plan has been documented for the patient 12/31/2022 6:20 PM EDT documented as of this encounter Care Teams Parliamentary Archivist Relationship Specialty Start Date End Date Martin Khan MD [address] [place] [address] [address] [place] [address] PCP - General 09/01/20 documented as of this encounter
--- OUTSIDE RECORDS SUMMARY | 2024-10-21 08:24 | XMS_ITS | Data Portability ---
Author Organization [facility] [place] [facility] Address [address] [place] [address] Care Team Providers Care Product Support Rep Name Role Phone ANTHONYSUSANNAH VELAZQUEZ Hematology/Oncology MARTIN PEÑA Primary Care Provider Assessment [...] with labs. We discussed possible bariatric surgery. [email or web address] Not available 01/11/2018 17:59:12 Plan of Treatment Reminders Order Date Submit Date Provider Last Modified By Organization Details Last Modified Time Details Appointments None recorded. Lab None recorded. Referral None recorded. Procedures None recorded. Surgeries None recorded. Imaging None recorded. Medication Orders Zofran 4 mg tablet 2018 019 [id number], [address] [facility] [place], [id number], 9 17:40:33 Maxalt-ML T 10 mg disintegr ating tablet 2018 019 [facility][id number], [address] [address] [place], [id number], 17:40:33 Patient TargetsNo targets recorded. Patient Instructions Encounter Date Encounter Id Patient Instructions Last Modified By Organization Details Last Modified Time 01/01/2017 [id number] learning about healthy weight IRVING Not available 02/17/2017 11:11:29 01/07/2018 [id number] non-hodgkin lymphoma: care instructions sliddle Not available 01/07/2018 10:31:08 When You Want to Lose Weight: Care Instructions sliddle Not available 01/07/2018 10:31:28 02/11/2019 [id number] nausea and vomiting: care instructions [email or web address] Not [...] 4.8 K/uL 3.8-10 .8 normal Not Available [facility] [address] [place] [address], [phone], 01/01/2017 09:35:48 01/02/2001/01/2017 CBC w/ auto diff red blood cells 4.85 M/uL 3.80-5 .20 normal Not Available [facility] [address] [place], [address], 01/01/2017 09:35:48 01/02/2001/01/2017 CBC w/ auto diff hemoglobin 13.6 g/dL 12.0-1 6.0 normal Not Available [facility] [address] [place], [address], 01/01/2017 09:35:48 01/02/20 17 01/01/2017 CBC w/ auto diff hematocrit 41.4 % 35.0-4 7.0 normal Not Available [facility] [address] [place], [address], 01/01/2017 09:35:48 01/02/20 17 01/01/2017 CBC w/ auto diff MCV 85 fL 80-100 normal Not Available [facility] [address] [place] [address], [address], 01/01/2017 09:35:48 01/02/2001/01/2017 CBC w/ auto diff MCH 28 pg 26-35 normal Not Available [facility] [address] [place] [address], [address], 01/01/2017 09:35:48 01/02/2001/01/2017 CBC w/ auto diff MCHC 33 g/dL 32-36 normal Not Available [facility] [address] [place] [address], [address], 01/01/2017 09:35:48 01/02/2001/01/2017 CBC w/ auto diff RDW 14.6 % 11.0-1 5.0 normal Not Available [facility] [address] [place] [address], [address], 01/01/2017 09:35:48 01/02/2001/01/2017 CBC w/ auto diff MPV 7.5 fL 6.2-10 .5 normal Not Available [facility] [address] [place] [address], [address], 01/01/2017 09:35:48 01/02/2001/01/2017 CBC w/ auto diff platelet count 239 K/uL 130-40 0 normal Not Available [facility] [address] [place] [address], [address], 01/01/2017 09:35:48 01/02/2001/01/2017 CBC w/ auto diff neutrophil,a bsolute 1.9 K/uL 1.6-8. 4 normal Not Available [facility] [address] [place] [address], [address], 01/01/2017 09:35:48 01/02/2001/01/2017 CBC w/ auto diff lymphocyte,a bsolute 2.2 K/uL 0.4-5. 1 normal Not Available [facility] [address] [place] [address], [address], 01/01/2017 09:35:48 01/02/2001/01/2017 CBC w/ auto diff monocyte,abs olute 0.4 K/uL 0.0-1. 2 normal Not Available [facility] [address] [place] [address], [address], 01/01/2017 09:35:48 01/02/2001/01/2017 CBC w/ auto diff eosinophil,a bsolute 0.2 K/uL 0.0-0. 8 normal Not Available [facility] [address] [place] [address], [address], 01/01/2017 09:35:48 01/02/2001/01/2017 CBC w/ auto diff basophil,abs olute 0.0 K/uL 0.0-0. 3 normal Not Available [facility] [address] [place] [address], [address], 01/01/2017 09:35:48 01/02/2001/01/2017 CBC w/ auto diff % neutrophils 40.6 % 42.0-7 8.0 low Not Available [facility] [address] [place] [address], [address], 01/01/2017 09:35:48 01/02/2001/01/2017 CBC w/ auto diff % lymphocytes 45.6 % 11.0-4 7.0 normal Not Available [facility] [address] [place] [address], [address], 01/01/2017 09:35:48 01/02/20 17 01/01/2017 CBC w/ auto diff % monocytes 8.8 % 0.0-11 .0 normal Not Available [facility] [address] [place] [address], [address], 01/01/2017 09:35:48 01/02/20 17 01/01/2017 CBC w/ auto diff % eosinophils 4.0 % 0.0-7. 0 normal Not Available [facility] [address] [place] [address], [address], 01/01/2017 09:35:48 01/02/2001/01/2017 CBC w/ auto diff % basophils 1.0 % 0.0-3. 0 normal Not Available [facility] [address] [place] [address], [address], 01/01/2017 09:35:48 01/02/2001/01/2017 CBC w/ auto diff nucleated red cells 0.2 % 0.0-0. 9 normal Not Available [facility] [address] [place] [address], [address], 01/01/2017 09:35:48 01/02/2001/01/2017 CBC w/ auto diff nucleated RBCs, absolute 0.01 K/uL not estab. normal Not Available [facility] [address] [place] [address], [address], 01/01/2017 09:35:48 01/02/2001/01/2017 CMP, serum or plasm a glucose 95 mg/dL 74-100 normal Not Available [facility] [address] [place] [address], [address], 01/01/2017 10:04:58 01/02/2001/01/2017 CMP, serum or plasm a blood urea nitrogen 10 mg/dL 6-20 normal Not Available [facility] [address] [place] [address], [address], 01/01/2017 10:04:58 01/02/20 17 01/01/2017 CMP, serum or plasm a creatinine 0.81 mg/dL 0.50-0 .95 normal Not Available [facility] [address] [place] [address], [address], 01/01/2017 10:04:58 01/02/20 17 01/01/2017 CMP, serum or plasm a BUN/creatini ne ratio 12 (calc ) 10-20 normal Not Available [facility] [address] [place] [address], [address], 01/01/2017 10:04:58 01/02/20 17 01/01/2017 CMP, serum or plasm a GFR 96 >= 60 normal Not Available [facility] [address] [place] [address], [address], 01/01/2017 10:04:58 01/02/20 17 01/01/2017 CMP, serum [...] s or longe r. . Not Available [facility] [address] [place] [address], [address], 01/01/2017 10:04:58 01/02/20 17 01/01/2017 CMP, serum or plasm a sodium 138 mmol/ L 136-14 5 normal Not Available [facility] [address] [place] [address], [address], 01/01/2017 10:04:58 01/02/20 17 01/01/2017 CMP, serum or plasm a potassium 4.2 mmol/ L 3.4-5. 0 normal Not Available [facility] [address] [place] [address], [address], 01/01/2017 10:04:58 01/02/20 17 01/01/2017 CMP, serum or plasm a chloride 101 mmol/ L 98-107 normal Not Available [facility] [address] [place] [address], [address], 01/01/2017 10:04:58 01/02/20 17 01/01/2017 CMP, serum or plasm a carbon dioxide 22 mmol/ L 20-32 normal Not Available [facility] [address] [place] [address], [address], 01/01/2017 10:04:58 01/02/2001/01/2017 CMP, serum or plasm a anion gap 15 (calc ) 7-25 normal Not Available [facility] [address] [place] [address], [address], 01/01/2017 10:04:58 01/02/20 17 01/01/2017 CMP, serum or plasm a calcium 8.9 mg/dL 8.6-10 .2 normal Not Available [facility] [address] [place] [address], [address], 01/01/2017 10:04:58 01/02/20 17 01/01/2017 CMP, serum or plasm a total protein 7.3 g/dL 6.4-8. 3 normal Not Available [facility] [address] [place] [address], [address], 01/01/2017 10:04:58 01/02/20 17 01/01/2017 CMP, serum or plasm a albumin 3.9 g/dL 3.5-5. 2 normal Not Available [facility] [address] [place] [address], [address], 01/01/2017 10:04:58 01/02/20 17 01/01/2017 CMP, serum or plasm a globulin 3.4 g/dL_ (calc ) 1.5-4. 5 normal Not Available [facility] [address] [place] [address], [address], 01/01/2017 10:04:58 01/02/20 17 01/01/2017 CMP, serum or plasm a albumin/glob ulin ratio 1.1 (calc ) 1.1-2. 5 normal Not Available [facility] [address] [place] [address], [address], 01/01/2017 10:04:58 01/02/20 17 01/01/2017 CMP, serum or plasm a bilirubin, total 0.5 mg/dL 0.1-1. 2 normal Not Available [facility] [address] [place] [address], [address], 01/01/2017 10:04:58 01/02/20 17 01/01/2017 CMP, serum or plasm a alkaline phosphatase 61 U/L 35-105 normal Not Available [facility] [address] [place] [address], [address], 01/01/2017 10:04:58 01/02/20 17 01/01/2017 CMP, serum or plasm a AST 23 U/L 0-32 normal Not Available [facility] [address] [place] [address], [address], 01/01/2017 10:04:58 01/02/20 17 01/01/2017 CMP, serum or plasm a ALT 14 U/L 0-33 normal Not Available [facility] [address] [place] [address], [address], 01/01/2017 10:04:58 01/02/20 17 01/01/2017 lipid panel , serum HDL cholesterol 65 mg/dL 66-242 low Not Available [facility] [address] [place] [address], [address], 01/01/2017 10:05:00 01/02/20 17 01/01/2017 lipid panel , serum triglyceride s 131 mg/dL 0-149 normal TRIGL YCERI DE RANGE S SUSI L: < 150 BORDE RLINE HIGH: 150 - 199 HIGH: 200 - 499 VERY HIGH: > OR = 500 Not Available [facility] [address] [place] [address], [address], 01/01/2017 10:05:00 01/02/20 17 01/01/2017 lipid panel , serum cholesterol 223 mg/dL 0-199 high ELVA STERO L (TOTA L) RANGE S WU ABLE: < 200 BORDE RLINE : 200 - 239 HIGHE R RISK: > 239 Not Available [facility] [address] [place] [address], [address], 01/01/2017 10:05:00 01/02/20 17 01/01/2017 lipid panel , serum LDL cholesterol 132 mg/dL _(diaz c) 0-99 high LDL ELVA STERO L RANGE S OPTIM AL: < 100 NEAR/ ABOVE OPTIM AL: 100 - 129 BORDE RLINE HIGH: 130 - 159 HIGH: 160 - 189 VERY HIGH: > OR = 190 Not Available [facility] [address] [place] [address], [address], 01/01/2017 10:05:00 01/08/20 18 01/07/2018 CBC w/ auto diff white blood cells 4.8 K/uL 3.8-10 .8 normal Not Available [facility] [address] [place] [address], [address], 01/07/2018 09:32:31 01/08/20 18 01/07/2018 CBC w/ auto diff red blood cells 4.53 M/uL 3.80-5 .20 normal Not Available [facility] [address] [place] [address], [address], 01/07/2018 09:32:31 01/08/20 18 01/07/2018 CBC w/ auto diff hemoglobin 13.4 g/dL 12.0-1 6.0 normal Not Available [facility] [address] [place] [address], [address], 01/07/2018 09:32:31 01/08/20 18 01/07/2018 CBC w/ auto diff hematocrit 38.8 % 35.0-4 7.0 normal Not Available [facility] [address] [place] [address], [address], 01/07/2018 09:32:31 01/08/20 18 01/07/2018 CBC w/ auto diff MCV 86 fL 80-100 normal Not Available [facility] [address] [place] [address], [address], 01/07/2018 09:32:31 01/08/20 18 01/07/2018 CBC w/ auto diff MCH 30 pg 26-35 normal Not Available [facility] [address] [place] [address], [address], 01/07/2018 09:32:31 01/08/20 18 01/07/2018 CBC w/ auto diff MCHC 34 g/dL 32-36 normal Not Available [facility] [address] [place] [address], [address], 01/07/2018 09:32:31 01/08/20 18 01/07/2018 CBC w/ auto diff RDW 14.3 % 11.0-1 5.0 normal Not Available [facility] [address] [place] [address], [address], 01/07/2018 09:32:31 01/08/20 18 01/07/2018 CBC w/ auto diff MPV 7.7 fL 6.2-10 .5 normal Not Available [facility] [address] [place] [address], [address], 01/07/2018 09:32:31 01/08/20 18 01/07/2018 CBC w/ auto diff platelet count 268 K/uL 130-40 0 normal Not Available [facility] [address] [place] [address], [address], 01/07/2018 09:32:31 01/08/20 18 01/07/2018 CBC w/ auto diff neutrophil,a bsolute 1.9 K/uL 1.6-8. 4 normal Not Available [facility] [address] [place] [address], [address], 01/07/2018 09:32:31 01/08/20 18 01/07/2018 CBC w/ auto diff lymphocyte,a bsolute 2.2 K/uL 0.4-5. 1 normal Not Available [facility] [address] [place] [address], [address], 01/07/2018 09:32:31 01/08/20 18 01/07/2018 CBC w/ auto diff monocyte,abs olute 0.5 K/uL 0.0-1. 2 normal Not Available [facility] [address] [place] [address], [address], 01/07/2018 09:32:31 01/08/20 18 01/07/2018 CBC w/ auto diff eosinophil,a bsolute 0.2 K/uL 0.0-0. 8 normal Not Available [facility] [address] [place] [address], [address], 01/07/2018 09:32:31 01/08/20 18 01/07/2018 CBC w/ auto diff basophil,abs olute 0.0 K/uL 0.0-0. 3 normal Not Available [facility] [address] [place] [address], [address], 01/07/2018 09:32:31 01/08/20 18 01/07/2018 CBC w/ auto diff % neutrophils 40.4 % 42.0-7 8.0 low Not Available [facility] [address] [place] [address], [address], 01/07/2018 09:32:31 01/08/20 18 01/07/2018 CBC w/ auto diff % lymphocytes 44.9 % 11.0-4 7.0 normal Not Available [facility] [address] [place] [address], [address], 01/07/2018 09:32:31 01/08/20 18 01/07/2018 CBC w/ auto diff % monocytes 10.6 % 0.0-11 .0 normal Not Available [facility] [address] [place] [address], [address], 01/07/2018 09:32:31 01/08/20 18 01/07/2018 CBC w/ auto diff % eosinophils 3.3 % 0.0-7. 0 normal Not Available [facility] [address] [place] [address], [address], 01/07/2018 09:32:31 01/08/20 18 01/07/2018 CBC w/ auto diff % basophils 0.8 % 0.0-3. 0 normal Not Available [facility] [address] [place] [address], [address], 01/07/2018 09:32:31 01/08/20 18 01/07/2018 CBC w/ auto diff nucleated red cells 0.2 % 0.0-0. 9 normal Not Available [facility] [address] [place] [address], [address], 01/07/2018 09:32:31 01/08/20 18 01/07/2018 CBC w/ auto diff nucleated RBCs, absolute 0.01 K/uL not estab. normal Not Available [facility] [address] [place] [address], [address], 01/07/2018 09:32:31 01/08/20 18 01/07/2018 CMP, serum or plasm a glucose 104 mg/dL 74-100 high Not Available [facility] [address] [place] [address], [address], 01/07/2018 09:55:17 01/08/20 18 01/07/2018 CMP, serum or plasm a blood urea nitrogen 9 mg/dL 6-20 normal Not Available [facility] [place], [address], 01/07/2018 09:55:17 01/08/20 18 01/07/2018 CMP, serum or plasm a creatinine 0.85 mg/dL 0.50-0 .95 normal Not Available [facility] [address] [place], [address], 01/07/2018 09:55:17 01/08/20 18 01/07/2018 CMP, serum or plasm a BUN/creatini ne ratio 11 (calc ) 10-20 normal Not Available [facility] [address] [place] [address], [address], 01/07/2018 09:55:17 01/08/20 18 01/07/2018 CMP, serum or plasm a sodium 138 mmol/ L 136-14 5 normal Not Available [facility] [address] [place] [address], [address], 01/07/2018 09:55:17 01/08/20 18 01/07/2018 CMP, serum or plasm a potassium 4.6 mmol/ L 3.4-5. 0 normal Not Available [facility] [address] [place] [address], [address], 01/07/2018 09:55:17 01/08/20 18 01/07/2018 CMP, serum or plasm a chloride 101 mmol/ L 98-107 normal Not Available [facility] [address] [place] [address], [address], 01/07/2018 09:55:17 01/08/20 18 01/07/2018 CMP, serum or plasm a carbon dioxide 29 mmol/ L 20-32 normal Not Available [facility] [address] [place], [address], 01/07/2018 09:55:17 01/08/20 18 01/07/2018 CMP, serum or plasm a anion gap 8 (calc ) 7-25 normal Not Available [facility] [address] [place], [address], 01/07/2018 09:55:17 01/08/20 18 01/07/2018 CMP, serum or plasm a calcium 9.2 mg/dL 8.6-10 .2 normal Not Available [facility] [address] [place] [address], [address], 01/07/2018 09:55:01/08/20 18 01/07/2018 CMP, serum or plasm a total protein 7.2 g/dL 6.4-8. 3 normal Not Available [facility] [address] [place] [address], [address], 01/07/2018 09:55:01/08/20 18 01/07/2018 CMP, serum or plasm a albumin 3.9 g/dL 3.5-5. 2 normal Not Available [facility] [address] [place] [address], [address], 01/07/2018 09:55:01/08/20 18 01/07/2018 CMP, serum or plasm a globulin 3.3 g/dL_ (calc ) 1.5-4. 5 normal Not Available [facility] [address] [place] [address], [address], 01/07/2018 09:55:01/08/2001/07/2018 CMP, serum or plasm a albumin/glob ulin ratio 1.2 (calc ) 1.1-2. 5 normal Not Available [facility] [address] [place] [address], [address], 01/07/2018 09:55:01/08/2001/07/2018 CMP, serum or plasm a bilirubin, total 0.6 mg/dL 0.1-1. 2 normal Not Available [facility] [address] [place] [address], [address], 01/07/2018 09:55:01/08/2001/07/2018 CMP, serum or plasm a alkaline phosphatase 55 U/L 35-105 normal Not Available [facility] [place], [address], 01/07/2018 09:55:17 01/08/20 18 01/07/2018 CMP, serum or plasm a AST 18 U/L 0-32 normal Not Available [facility] [address] [place] [address], [address], 01/07/2018 09:55:17 01/08/20 18 01/07/2018 CMP, serum or plasm a ALT 13 U/L 0-33 normal Not Available [facility] [address] [place], [address], 01/07/2018 09:55:17 01/08/20 18 01/07/2018 CMP, serum or plasm a GFR 90 >= 60 normal Not Available [facility] [address] [place], [address], 01/07/2018 09:55:17 01/08/20 18 01/07/2018 CMP, serum [...] s or longe r. . Not Available [facility] [address] [place], [address], 01/07/2018 09:55:17 01/08/2001/07/2018 lipid panel , serum HDL cholesterol 62 mg/dL 66-242 low Not Available [facility] [address] [place], [address], 01/07/2018 09:55:19 01/08/2001/07/2018 lipid panel , serum triglyceride s 125 mg/dL 0-149 normal TRIGL YCERI DE RANGE S SUSI L: < 150 BORDE RLINE HIGH: 150 - 199 HIGH: 200 - 499 VERY HIGH: > OR = 500 Not Available [facility] [address] [place] [address], [address], 01/07/2018 09:55:19 01/08/2001/07/2018 lipid panel , serum cholesterol 240 mg/dL 0-199 high ELVA STERO L (TOTA L) RANGE S WU ABLE: < 200 BORDE RLINE : 200 - 239 HIGHE R RISK: > 239 Not Available [facility] [address] [place] [address], [address], 01/07/2018 09:55:01/08/2001/07/2018 lipid panel , serum LDL cholesterol 153 mg/dL _(diaz c) 0-99 high LDL ELVA STERO L RANGE S OPTIM AL: < 100 NEAR/ ABOVE OPTIM AL: 100 - 129 BORDE RLINE HIGH: 130 - 159 HIGH: 160 - 189 VERY HIGH: > OR = 190 Not Available [facility] [address] [place] [address], [address], 01/07/2018 09:55:19 01/12/2001/11/2019 CMP, serum or plasm a glucose 108 mg/dL 74-100 high Not Available [facility] [address] [place] [address], [address], 01/11/2019 09:17:14 01/12/2001/11/2019 CMP, serum or plasm a blood urea nitrogen 10 mg/dL 6-20 normal Not Available [facility] [address] [place], [address], 01/11/2019 09:17:14 01/12/2001/11/2019 CMP, serum or plasm a creatinine 0.92 mg/dL 0.50-0 .95 normal Not Available [facility] [address] [place] [address], [address], 01/11/2019 09:17:14 01/12/20 19 01/11/2019 CMP, serum or plasm a BUN/creatini ne ratio 11 (calc ) 10-20 normal Not Available [facility] [address] [place] [address], [address], 01/11/2019 09:17:14 01/12/20 19 01/11/2019 CMP, serum or plasm a sodium 139 mmol/ L 136-14 5 normal Not Available [facility] [address] [place] [address], [address], 01/11/2019 09:17:14 01/12/2001/11/2019 CMP, serum or plasm a potassium 4.2 mmol/ L 3.4-5. 0 normal Not Available [facility] [address] [place] [address], [address], 01/11/2019 09:17:14 01/12/2001/11/2019 CMP, serum or plasm a chloride 101 mmol/ L 98-107 normal Not Available [facility] [address] [place] [address], [address], 01/11/2019 09:17:14 01/12/2001/11/2019 CMP, serum or plasm a carbon dioxide 24 mmol/ L 20-32 normal Not Available [facility] [address] [place] [address], [address], 01/11/2019 09:17:14 01/12/2001/11/2019 CMP, serum or plasm a anion gap 14 (calc ) 7-25 normal Not Available [facility] [address] [place] [address], [address], 01/11/2019 09:17:14 01/12/2001/11/2019 CMP, serum or plasm a calcium 9.0 mg/dL 8.6-10 .2 normal Not Available [facility] [address] [place] [address], [address], 01/11/2019 09:17:14 01/12/2001/11/2019 CMP, serum or plasm a total protein 6.8 g/dL 6.4-8. 3 normal Not Available [facility] [address] [place] [address], [address], 01/11/2019 09:17:14 01/12/2001/11/2019 CMP, serum or plasm a albumin 3.9 g/dL 3.5-5. 2 normal Not Available [facility] [address] [place] [address], [address], 01/11/2019 09:17:14 01/12/2001/11/2019 CMP, serum or plasm a globulin 2.9 g/dL_ (calc ) 1.5-4. 5 normal Not Available [facility] [address] [place] [address], [address], 01/11/2019 09:17:14 01/12/2001/11/2019 CMP, serum or plasm a albumin/glob ulin ratio 1.3 (calc ) 1.1-2. 5 normal Not Available [facility] [address] [place] [address], [address], 01/11/2019 09:17:14 01/12/2001/11/2019 CMP, serum or plasm a bilirubin, total 0.4 mg/dL 0.1-1. 2 normal Not Available [facility] [address] [place] [address], [address], 01/11/2019 09:17:14 01/12/2001/11/2019 CMP, serum or plasm a alkaline phosphatase 55 U/L 35-105 normal Not Available [facility] [address] [place] [address], [address], 01/11/2019 09:17:14 01/12/2001/11/2019 CMP, serum or plasm a AST 16 U/L 0-32 normal Not Available [facility] [address] [place] [address], [address], 01/11/2019 09:17:14 01/12/20 19 01/11/2019 CMP, serum or plasm a ALT 12 U/L 0-33 normal Not Available [facility] [address] [place] [address], [address], 01/11/2019 09:17:14 01/12/20 19 01/11/2019 CMP, serum or plasm a GFR 81 >= 60 normal Not Available [facility] [address] [place], [address], 01/11/2019 09:17:14 01/12/20 19 01/11/2019 CMP, serum [...] r. Not Available [facility] [address] [place] [address], [address], 01/11/2019 09:17:14 01/12/20 19 01/11/2019 CBC w/ auto diff white blood cells 5.9 K/uL 3.8-10 .8 normal Not Available [facility] [address] [place] [address], [address], 01/11/2019 09:02:43 01/12/2001/11/2019 CBC w/ auto diff red blood cells 4.35 M/uL 3.80-5 .20 normal Not Available [facility] [address] [place] [address], [address], 01/11/2019 09:02:43 01/12/2001/11/2019 CBC w/ auto diff hemoglobin 12.7 g/dL 12.0-1 6.0 normal Not Available [facility] [address] [place] [address], [address], 01/11/2019 09:02:43 01/12/20 19 01/11/2019 CBC w/ auto diff hematocrit 37.6 % 35.0-4 7.0 normal Not Available [facility] [address] [place] [address], [address], 01/11/2019 09:02:43 01/12/2001/11/2019 CBC w/ auto diff MCV 87 fL 80-100 normal Not Available [facility] [address] [place] [address], [address], 01/11/2019 09:02:43 01/12/2001/11/2019 CBC w/ auto diff MCH 29 pg 26-35 normal Not Available [facility] [address] [place] [address], [address], 01/11/2019 09:02:43 01/12/2001/11/2019 CBC w/ auto diff MCHC 34 g/dL 32-36 normal Not Available [facility] [address] [place] [address], [address], 01/11/2019 09:02:43 01/12/2001/11/2019 CBC w/ auto diff RDW 14.5 % 11.0-1 5.0 normal Not Available [facility] [address] [place] [address], [address], 01/11/2019 09:02:43 01/12/2001/11/2019 CBC w/ auto diff MPV 7.3 fL 6.2-10 .5 normal Not Available [facility] [address] [place] [address], [address], 01/11/2019 09:02:43 01/12/2001/11/2019 CBC w/ auto diff platelet count 250 K/uL 130-40 0 normal Not Available [facility] [address] [place] [address], [address], 01/11/2019 09:02:43 01/12/2001/11/2019 CBC w/ auto diff neutrophil,a bsolute 2.4 K/uL 1.6-8. 4 normal Not Available [facility] [address] [place] [address], [address], 01/11/2019 09:02:43 01/12/2001/11/2019 CBC w/ auto diff lymphocyte,a bsolute 2.8 K/uL 0.4-5. 1 normal Not Available [facility] [address] [place] [address], [address], 01/11/2019 09:02:43 01/12/2001/11/2019 CBC w/ auto diff monocyte,abs olute 0.5 K/uL 0.0-1. 2 normal Not Available [facility] [address] [place] [address], [address], 01/11/2019 09:02:43 01/12/2001/11/2019 CBC w/ auto diff eosinophil,a bsolute 0.2 K/uL 0.0-0. 8 normal Not Available [facility] [address] [place] [address], [address], 01/11/2019 09:02:43 01/12/2001/11/2019 CBC w/ auto diff basophil,abs olute 0.1 K/uL 0.0-0. 3 normal Not Available [facility] [address] [place] [address], [address], 01/11/2019 09:02:43 01/12/2001/11/2019 CBC w/ auto diff % neutrophils 40.6 % 42.0-7 8.0 low Not Available [facility] [address] [place] [address], [address], 01/11/2019 09:02:43 01/12/2001/11/2019 CBC w/ auto diff % lymphocytes 46.9 % 11.0-4 7.0 normal Not Available [facility] [address] [place] [address], [address], 01/11/2019 09:02:43 01/12/2001/11/2019 CBC w/ auto diff % monocytes 8.2 % 0.0-11 .0 normal Not Available [facility] [address] [place] [address], [address], 01/11/2019 09:02:43 01/12/2001/11/2019 CBC w/ auto diff % eosinophils 3.4 % 0.0-7. 0 normal Not Available [facility] [address] [place] [address], [address], 01/11/2019 09:02:43 01/12/2001/11/2019 CBC w/ auto diff % basophils 0.9 % 0.0-3. 0 normal Not Available [facility] [address] [place] [address], [address], 01/11/2019 09:02:43 01/12/2001/11/2019 CBC w/ auto diff nucleated red cells 0.1 % 0.0-0. 9 normal Not Available [facility] [address] [place] [address], [address], 01/11/2019 09:02:43 01/12/2001/11/2019 CBC w/ auto diff nucleated RBCs, absolute 0.01 K/uL not estab. normal Not Available [facility] [address] [place] [address], [address], 01/11/2019 09:02:43 01/12/2001/12/2020 CMP, serum or plasm a glucose 105 mg/dL 74-100 high Not Available [facility] [address] [place] [address], [address], 01/12/2020 09:32:21 01/12/2001/12/2020 CMP, serum or plasm a blood urea nitrogen 8 mg/dL 6-20 normal Not Available [facility] [address] [place] [address], [address], 01/12/2020 09:32:21 01/12/20 20 01/12/2020 CMP, serum or plasm a creatinine 0.86 mg/dL 0.50-0 .95 normal Not Available [facility] [address] [place] [address], [address], 01/12/2020 09:32:21 01/12/20 20 01/12/2020 CMP, serum or plasm a BUN/creatini ne ratio 9 (calc ) 10-20 low Not Available [facility] [address] [place] [address], [address], 01/12/2020 09:32:21 01/12/20 20 01/12/2020 CMP, serum or plasm a sodium 139 mmol/ L 136-14 5 normal Not Available [facility] [address] [place] [address], [address], 01/12/2020 09:32:21 01/12/20 20 01/12/2020 CMP, serum or plasm a potassium 4.2 mmol/ L 3.4-5. 0 normal Not Available [facility] [address] [place] [address], [address], 01/12/2020 09:32:21 01/12/2001/12/2020 CMP, serum or plasm a chloride 103 mmol/ L 98-107 normal Not Available [facility] [address] [place] [address], [address], 01/12/2020 09:32:21 01/12/2001/12/2020 CMP, serum or plasm a carbon dioxide 28 mmol/ L 20-32 normal Not Available [facility] [address] [place] [address], [address], 01/12/2020 09:32:21 01/12/20 20 01/12/2020 CMP, serum or plasm a anion gap 8 (calc ) 7-25 normal Not Available [facility] [address] [place] [address], [address], 01/12/2020 09:32:21 01/12/2001/12/2020 CMP, serum or plasm a calcium 9.1 mg/dL 8.6-10 .2 normal Not Available [facility] [address] [place] [address], [address], 01/12/2020 09:32:21 01/12/2001/12/2020 CMP, serum or plasm a total protein 6.7 g/dL 6.4-8. 3 normal Not Available [facility] [address] [place] [address], [address], 01/12/2020 09:32:21 01/12/2001/12/2020 CMP, serum or plasm a albumin 4.1 g/dL 3.5-5. 2 normal Not Available [facility] [address] [place] [address], [address], 01/12/2020 09:32:21 01/12/2001/12/2020 CMP, serum or plasm a globulin 2.6 g/dL_ (calc ) 1.5-4. 5 normal Not Available [facility] [address] [place] [address], [address], 01/12/2020 09:32:21 01/12/2001/12/2020 CMP, serum or plasm a albumin/glob ulin ratio 1.6 (calc ) 1.1-2. 5 normal Not Available [facility] [address] [place] [address], [address], 01/12/2020 09:32:21 01/12/2001/12/2020 CMP, serum or plasm a bilirubin, total 0.3 mg/dL 0.1-1. 2 normal Not Available [facility] [address] [place] [address], [address], 01/12/2020 09:32:21 01/12/20 20 01/12/2020 CMP, serum or plasm a alkaline phosphatase 58 U/L 35-105 normal Not Available [facility] [address] [place] [address], [address], 01/12/2020 09:32:21 01/12/20 20 01/12/2020 CMP, serum or plasm a AST 20 U/L 0-32 normal Not Available [facility] [address] [place] [address], [address], 01/12/2020 09:32:21 01/12/20 20 01/12/2020 CMP, serum or plasm a ALT 12 U/L 0-33 normal Not Available [facility] [address] [place] [address], [address], 01/12/2020 09:32:21 01/12/20 20 01/12/2020 CMP, serum or plasm a GFR 87 >= 60 normal Not Available [facility] [address] [place] [address], [address], 01/12/2020 09:32:21 01/12/20 20 01/12/2020 CMP, serum or plasm a GFR non- [...] r. Not Available [facility] [place], [address], 01/12/2020 09:32:21 01/12/20 20 01/12/2020 CBC w/ auto diff white blood cells 5.1 K/uL 3.8-10 .8 normal Not Available [facility] [address] [place] [address], [address], 01/12/2020 09:07:06 01/12/20 20 01/12/2020 CBC w/ auto diff red blood cells 4.59 M/uL 3.80-5 .20 normal Not Available [facility] [address] [place] [address], [address], 01/12/2020 09:07:06 01/12/20 20 01/12/2020 CBC w/ auto diff hemoglobin 13.3 g/dL 12.0-1 6.0 normal Not Available [facility] [address] [place] [address], [address], 01/12/2020 09:07:06 01/12/2001/12/2020 CBC w/ auto diff hematocrit 39.6 % 35.0-4 7.0 normal Not Available [facility] [address] [place] [address], [address], 01/12/2020 09:07:06 01/12/2001/12/2020 CBC w/ auto diff MCV 86 fL 80-100 normal Not Available [facility] [address] [place] [address], [address], 01/12/2020 09:07:06 01/12/2001/12/2020 CBC w/ auto diff MCH 29 pg 26-35 normal Not Available [facility] [address] [place] [address], [address], 01/12/2020 09:07:06 01/12/20 20 01/12/2020 CBC w/ auto diff MCHC 34 g/dL 32-36 normal Not Available [facility] [address] [place] [address], [address], 01/12/2020 09:07:06 01/12/20 20 01/12/2020 CBC w/ auto diff RDW 14.5 % 11.0-1 5.0 normal Not Available [facility] [address] [place] [address], [address], 01/12/2020 09:07:06 01/12/20 20 01/12/2020 CBC w/ auto diff MPV 7.5 fL 6.2-10 .5 normal Not Available [facility] [address] [place] [address], [address], 01/12/2020 09:07:06 01/12/20 20 01/12/2020 CBC w/ auto diff platelet count 268 K/uL 130-40 0 normal Not Available [facility] [address] [place] [address], [address], 01/12/2020 09:07:06 01/12/20 20 01/12/2020 CBC w/ auto diff neutrophil,a bsolute 2.3 K/uL 1.6-8. 4 normal Not Available [facility] [address] [place] [address], [address], 01/12/2020 09:07:06 01/12/20 20 01/12/2020 CBC w/ auto diff lymphocyte,a bsolute 2.1 K/uL 0.4-5. 1 normal Not Available [facility] [address] [place] [address], [address], 01/12/2020 09:07:06 01/12/20 20 01/12/2020 CBC w/ auto diff monocyte,abs olute 0.4 K/uL 0.0-1. 2 normal Not Available [facility] [address] [place] [address], [address], 01/12/2020 09:07:06 01/12/20 20 01/12/2020 CBC w/ auto diff eosinophil,a bsolute 0.2 K/uL 0.0-0. 8 normal Not Available [facility] [address] [place] [address], [address], 01/12/2020 09:07:06 01/12/20 20 01/12/2020 CBC w/ auto diff basophil,abs olute 0.1 K/uL 0.0-0. 3 normal Not Available [facility] [address] [place] [address], [address], 01/12/2020 09:07:06 01/12/20 20 01/12/2020 CBC w/ auto diff % neutrophils 44.0 % 42.0-7 8.0 normal Not Available [facility] [address] [place] [address], [address], 01/12/2020 09:07:06 01/12/2001/12/2020 CBC w/ auto diff % lymphocytes 41.2 % 11.0-4 7.0 normal Not Available [facility] [address] [place] [address], [address], 01/12/2020 09:07:06 01/12/2001/12/2020 CBC w/ auto diff % monocytes 8.1 % 0.0-11 .0 normal Not Available [facility] [address] [place] [address], [address], 01/12/2020 09:07:06 01/12/2001/12/2020 CBC w/ auto diff % eosinophils 4.3 % 0.0-7. 0 normal Not Available [facility] [address] [place] [address], [address], 01/12/2020 09:07:06 01/12/2001/12/2020 CBC w/ auto diff % basophils 2.4 % 0.0-3. 0 normal Not Available [facility] [address] [place] [address], [address], 01/12/2020 09:07:06 01/12/2001/12/2020 CBC w/ auto diff nucleated red cells 0.0 % 0.0-0. 9 normal Not Available [facility] [address] [place] [address], [address], 01/12/2020 09:07:06 01/12/20 20 01/12/2020 CBC w/ auto diff nucleated RBCs, absolute 0.00 K/uL not estab. normal Not Available [facility] [address] [place], [address], 01/12/2020 09:07:06 01/04/20 22 01/03/2022 LIPID PROFI LE HDL cholesterol 63 mg/dL 50-242 normal Not Available [facility] [address] [place], [address], 01/03/2022 09:58:11 01/04/20 22 01/03/2022 LIPID PROFI LE triglyceride s 162 mg/dL 0-149 high TRIGL YCERI DE RANGE S SUSI L: < 150 BORDE RLINE HIGH: 150 - 199 HIGH: 200 - 499 VERY HIGH: > OR = 500 Not Available [facility] [address] [place] [address], [address], 01/03/2022 09:58:11 01/04/20 22 01/03/2022 LIPID PROFI LE cholesterol 264 mg/dL 0-199 high ELVA STERO L (TOTA L) RANGE S WU ABLE: < 200 BORDE RLINE : 200 - 239 HIGHE R RISK: > 239 Not Available [facility] [address] [place], [address], 01/03/2022 09:58:11 01/04/20 22 01/03/2022 LIPID PROFI LE LDL cholesterol 169 mg/dL _(diaz c) 0-99 high LDL ELVA STERO L RANGE S OPTIM AL: < 100 NEAR/ ABOVE OPTIM AL: 100 - 129 BORDE RLINE HIGH: 130 - 159 HIGH: 160 - 189 VERY HIGH: > OR = 190 Not Available [facility] [address] [place], [address], 01/03/2022 09:58:11 01/04/20 22 01/03/2022 COMP. METAB OLIC PANEL glucose 108 mg/dL 74-100 high Not Available [facility] [address] [place], [address], 01/03/2022 09:58:10 01/04/20 22 01/03/2022 COMP. METAB OLIC PANEL blood urea nitrogen 8 mg/dL 6-20 normal Not Available [facility] [address] [place] [address], [address], 01/03/2022 09:58:10 01/04/20 22 01/03/2022 COMP. METAB OLIC PANEL creatinine 0.91 mg/dL 0.50-0 .95 normal Not Available [facility] [address] [place] [address], [address], 01/03/2022 09:58:10 01/04/20 22 01/03/2022 COMP. METAB OLIC PANEL BUN/creatini ne ratio 9 (calc ) 10-20 low Not Available [facility] [address] [place] [address], [address], 01/03/2022 09:58:10 01/04/20 22 01/03/2022 COMP. METAB OLIC PANEL sodium 139 mmol/ L 136-14 5 normal Not Available [facility] [address] [place] [address], [address], 01/03/2022 09:58:10 01/04/20 22 01/03/2022 COMP. METAB OLIC PANEL potassium 4.5 mmol/ L 3.4-5. 0 normal Not Available [facility] [address] [place] [address], [address], 01/03/2022 09:58:10 01/04/20 22 01/03/2022 COMP. METAB OLIC PANEL chloride 100 mmol/ L 98-107 normal Not Available [facility] [address] [place] [address], [address], 01/03/2022 09:58:10 01/04/20 22 01/03/2022 COMP. METAB OLIC PANEL carbon dioxide 28 mmol/ L 22-31 normal Not Available [facility] [address] [place] [address], [address], 01/03/2022 09:58:10 01/04/20 22 01/03/2022 COMP. METAB OLIC PANEL anion gap 11 (calc ) 7-25 normal Not Available [facility] [address] [place] [address], [address], 01/03/2022 09:58:10 01/04/20 22 01/03/2022 COMP. METAB OLIC PANEL calcium 9.8 mg/dL 8.6-10 .2 normal Not Available [facility] [address] [place] [address], [address], 01/03/2022 09:58:10 01/04/20 22 01/03/2022 COMP. METAB OLIC PANEL total protein 7.9 g/dL 6.4-8. 3 normal Not Available [facility] [address] [place] [address], [address], 01/03/2022 09:58:10 01/04/20 22 01/03/2022 COMP. METAB OLIC PANEL albumin 4.4 g/dL 3.5-5. 2 normal Not Available [facility] [address] [place] [address], [address], 01/03/2022 09:58:10 01/04/20 22 01/03/2022 COMP. METAB OLIC PANEL globulin 3.5 g/dL_ (calc ) 1.5-4. 5 normal Not Available [facility] [address] [place] [address], [address], 01/03/2022 09:58:10 01/04/20 22 01/03/2022 COMP. METAB OLIC PANEL albumin/glob ulin ratio 1.3 (calc ) 1.1-2. 5 normal Not Available [facility] [address] [place] [address], [address], 01/03/2022 09:58:10 01/04/20 22 01/03/2022 COMP. METAB OLIC PANEL bilirubin, total 0.5 mg/dL 0.1-1. 2 normal Not Available [facility] [address] [place], [address], 01/03/2022 09:58:10 01/04/20 22 01/03/2022 COMP. METAB OLIC PANEL alkaline phosphatase 73 U/L 30-121 normal Not Available [facility] [address] [place], [address], 01/03/2022 09:58:10 01/04/20 22 01/03/2022 COMP. METAB OLIC PANEL AST 25 U/L 0-32 normal Not Available [facility] [address] [place], [address], 01/03/2022 09:58:10 01/04/20 22 01/03/2022 COMP. METAB OLIC PANEL ALT 17 U/L 0-33 normal Not Available [facility] [address] [place], [address], 01/03/2022 09:58:10 01/04/20 22 01/03/2022 COMP. METAB OLIC PANEL GFR 73 >= 60 normal NOT E New calcu latio n for GFR (CKD- EPI 2020) is formu lated witho ut race adjus tment facto rs at the recom menda tion of the [employer] and [facility] . This calcu latio n has not been valid ated in pregn ant women . For pedia tric patie nts refer to https ://leona [email or web address].britta loja.o rg/pr ofess ional s/KDO QI/gf r_cal culat orPed Not Available [facility] [address] [place], [address], 01/03/2022 09:58:10 01/04/20 22 01/03/2022 COMPL ETE BLOOD COUNT white blood cells 6.9 K/uL 3.8-10 .8 normal Not Available [facility] [address] [place], [address], 01/03/2022 09:22:33 01/04/20 22 01/03/2022 COMPL ETE BLOOD COUNT red blood cells 4.85 M/uL 3.80-5 .20 normal Not Available [facility] [address] [place] [address], [address], 01/03/2022 09:22:33 01/04/20 22 01/03/2022 COMPL ETE BLOOD COUNT hemoglobin 13.6 g/dL 12.0-1 6.0 normal Not Available [facility] [address] [place] [address], [address], 01/03/2022 09:22:33 01/04/20 22 01/03/2022 COMPL ETE BLOOD COUNT hematocrit 40.8 % 35.0-4 7.0 normal Not Available [facility] [address] [place] [address], [address], 01/03/2022 09:22:33 01/04/20 22 01/03/2022 COMPL ETE BLOOD COUNT MCV 84 fL 80-100 normal Not Available [facility] [address] [place] [address], [address], 01/03/2022 09:22:33 01/04/20 22 01/03/2022 COMPL ETE BLOOD COUNT MCH 28 pg 26-35 normal Not Available [facility] [address] [place] [address], [address], 01/03/2022 09:22:33 01/04/20 22 01/03/2022 COMPL ETE BLOOD COUNT MCHC 33 g/dL 32-36 normal Not Available [facility] [address] [place] [address], [address], 01/03/2022 09:22:33 01/04/20 22 01/03/2022 COMPL ETE BLOOD COUNT RDW 15.1 % 11.0-1 5.0 high Not Available [facility] [address] [place] [address], [address], 01/03/2022 09:22:33 01/04/20 22 01/03/2022 COMPL ETE BLOOD COUNT MPV 7.1 fL 6.2-10 .5 normal Not Available [facility] [address] [place] [address], [address], 01/03/2022 09:22:33 01/04/20 22 01/03/2022 COMPL ETE BLOOD COUNT platelet count 328 K/uL 130-40 0 normal Not Available [facility] [address] [place] [address], [address], 01/03/2022 09:22:33 01/04/20 22 01/03/2022 COMPL ETE BLOOD COUNT neutrophil,a bsolute 2.9 K/uL 1.6-8. 4 normal Not Available [facility] [address] [place] [address], [address], 01/03/2022 09:22:33 01/04/20 22 01/03/2022 COMPL ETE BLOOD COUNT lymphocyte,a bsolute 3.0 K/uL 0.4-5. 1 normal Not Available [facility] [address] [place] [address], [address], 01/03/2022 09:22:33 01/04/20 22 01/03/2022 COMPL ETE BLOOD COUNT monocyte,abs olute 0.7 K/uL 0.0-1. 2 normal Not Available [facility] [address] [place] [address], [address], 01/03/2022 09:22:33 01/04/20 22 01/03/2022 COMPL ETE BLOOD COUNT eosinophil,a bsolute 0.2 K/uL 0.0-0. 8 normal Not Available [facility] [address] [place] [address], [address], 01/03/2022 09:22:33 01/04/20 22 01/03/2022 COMPL ETE BLOOD COUNT basophil,abs olute 0.1 K/uL 0.0-0. 3 normal Not Available [facility] [address] [place] [address], [address], 01/03/2022 09:22:33 01/04/2001/03/2022 COMPL ETE BLOOD COUNT % neutrophils 42.0 % 42.0-7 8.0 normal Not Available [facility] [address] [place] [address], [address], 01/03/2022 09:22:33 01/04/20 22 01/03/2022 COMPL ETE BLOOD COUNT % lymphocytes 42.8 % 11.0-4 7.0 normal Not Available [facility] [address] [place] [address], [address], 01/03/2022 09:22:33 01/04/20 22 01/03/2022 COMPL ETE BLOOD COUNT % monocytes 10.6 % 0.0-11 .0 normal Not Available [facility] [address] [place] [address], [address], 01/03/2022 09:22:33 01/04/2001/03/2022 COMPL ETE BLOOD COUNT % eosinophils 3.5 % 0.0-7. 0 normal Not Available [facility] [address] [place] [address], [address], 01/03/2022 09:22:33 01/04/2001/03/2022 COMPL ETE BLOOD COUNT % basophils 1.1 % 0.0-3. 0 normal Not Available [facility] [address] [place] [address], [address], 01/03/2022 09:22:33 01/04/2001/03/2022 COMPL ETE BLOOD COUNT nucleated red cells 0.0 % 0.0-0. 9 normal Not Available [facility] [address] [place] [address], [address], 01/03/2022 09:22:33 01/04/20 22 01/03/2022 COMPL ETE BLOOD COUNT nucleated RBCs, absolute 0.00 K/uL not estab. normal Not Available [facility] [address] [place], [address], 01/03/2022 09:22:33 05/09/19 18 05/07/2017 MAMMO , scree mary beth, tomos ynthe sis, bilat eral, w/ CAD No observ ation record ed. [email or web address] Not Available 2017 17:58:15 05/13/19 19 05/11/2018 MAMMO , scree mary beth, tomos ynthe sis, bilat eral, w/ CAD No observ ation record ed. [facility] [address] [place] [address], [id number], 05/13/2018 14:48:29 02/13/20 19 02/11/2019 audio gram No observ ation record ed. [email or web address] Not Available 2018 09:39:21 Result Notes None recorded. 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 Procedures Surgical History Date Name Laterality Status Provider Name and Address Organization Details Recorded Time 02/12/20 19 Tympanogram completed ALEJO PRICE, SHELBY [address] [place], [address], [facility] 02/11/2019 14:55:15 02/12/20 Audiogram completed SHELBY DANIELS [address] [place], [address], [facility] 02/11/2019 14:55:13 Appendectomy completed Reji Vizuete-Ort [facility] 01/01/2017 10:01:29 Cholecystectomy completed Reji Vizuete-Ort [facility] 01/01/2017 10:01:43 Partial hysterectomy completed Reji Vizuete-Ort [facility] 01/01/2017 10:01:54 ligation of fallopian tube completed [facility] 02/11/2019 13:57:51 Cholecystectomy completed [facility] 02/11/2019 13:58:07 colonoscopy completed [facility] 02/11/2019 13:58:31 procedure on neck completed [facility] 02/11/2019 13:58:49 Imaging Results None recorded. Procedure Notes None recorded. Medical Equipment None Reported. Allergies Allergen ID Allergen Name Allergen Category Reaction Reaction Severity Criticality Documentation Date Start Date Code Code System Note Provider Name and Address Organization Details Recorded Time 423994 hydrocodo ne bitartrat e medicatio n Not available Not available Not available 03/14/20162006 31452 9 RxNorm Comme nt: Creat ed By: Rodrigo Jarrett ie;Cr eated Date: 10:03 :41 AM; Not Available [facility] 6 10:54:39 [id number] Prilosec medicatio n Not available Not available Not available 03/15/2016201534 5 RxNorm Comme nt: Creat ed By: Constance on Madina ;Crea arturo Date: 2015 10:06 :30 AM; Not Available [facility] 6 03:55:25 [id number] Xarelto medicatio n Not available Not available Not available 03/15/20162015 80707 99 RxNorm Comme nt: Creat ed By: Constance on Madina ;Crea arturo Date: 2015 10:05 :15 AM; Not Available [facility] 6 07:45:15 247106 Calan medicatio n Not available Not available Not available 03/15/2016200649 0 RxNorm Comme nt: Creat ed By: Rodrigo Jarrett ie;Cr eated Date: 9/6/2 007 10:04 :01 AM; Not Available [facility] 6 08:39:26 Medications Name Sig Start Date Stop Date Status Note LastModified by Organization Details LastModified Time Toprol XL 100 mg tablet,ext ended release Daily active Frequency: daily;Medi cation Descriptio n: metoprolol succinate; Dosage:1; Route:oral ; refills:0 Not Available Not Available Not Available [employer] 10 mg 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 2018 active Not Available Not Available Not Avai lable Paxil 20 mg tablet Daily active Frequency: daily;[facility] cation Descriptio n: paroxetine ; Dosage:1; Route:oral [...] MWF and 5mg every other day;Freque ncy: daily;[facility] cation Descriptio n: warfarin; Dosage:as directed; refills:5; Quantity:3 0 Not Available Not Available Not Available Vitals Date Recorded Body height Body mass index (BMI) Body weight Body temperature Heart rate Systolic And Diastolic Provider Name and Address Organization Details Last Updated DateTime 7 165.1 cm 45.7 kg/m2 006340. 18 g 97.5 [degF] 66 /min 131/86 mm[Hg] Reji cronin [facility] 7 10:05:00 Date Recorded Body height Body mass index (BMI) Body weight Body temperature Heart rate Heart rate Systolic And Diastolic Systolic And Diastolic Provider Name and Address Organization Details Last Updated DateTime 8 165.1 cm 47 kg/m2 243392. 84 g 97.5 [degF] 65 /min 65 /min 136/102 mm[Hg] 121/70 mm[Hg] Luis Enrique Valle [facility] 8 09:27:26 Date Recorded Body weight Body mass index (BMI) Body height Body temperature Heart rate Systolic And Diastolic Provider Name and Address Organization Details Last Updated DateTime 9 095151. 9 g 45.8 kg/m2 165.1 cm 96.5 [degF] 83 /min 142/87 mm[Hg] Sanjuanita Wallace [facility] 9 14:22:22 Social History Question Answer Notes LastModified by Organizat ion Details LastModified Time Tobacco Smoking Status [facility] 10:02:11 Live Alone Or With Others? With Others [email or web address] Information not available 01/01/2017 Marital Status Informatio n not available 01/01/2017 What Was The Date Of Your Most Recent Tobacco Screening? 01/07/2018 Information not available 06/08/2019 Has Tobacco Cessation Counseling Been Provided? No Information not available 01/01/2017 Sex: Female Functional Status Question Answer Note LastModified by Organization D etails LastModified Time What is your level of alcohol consumption? None [email or web address] Information not available 01/01/2017 Mental Status None recorded. Family History Relationship Description Onset Age of this Age Resolved Age Notes LastModified by Organization Details LastModified Time Mother Diabetes mellitus [email or web address] Not available 2016 09:59:31 Mother Family history of malignant neoplasm [email or web address] Not available 2016 09:59:47 Mother Heart disease [email or web address] Not available 2016 10:00:30 Mother Hyperlipidem ia Not available 2016 10:00:43 Mother Hypertensive disorder Not available 2016 10:00:58 Mother Asthma [email or web address] Not available 02/11/2019 13:56:11 Maternal Grandfather Family history of malignant neoplasm [email or web address] Not available 2016 09:59:47 Maternal Grandmother Family history of stroke [email or web address] Not available 2016 10:00:05 Father Heart disease [email or web address] Not available 2016 10:00:30 Sister Hypertensive disorder [email or web address] Not available 2016 10:00:58 Sister Disorder of thyroid gland [email or web address] Not available 02/11 13:55:10 Medical History Condition Response Blood Transfusion Y Cancer Y Gynecological HistoryNo gynecological history recorded. Obstetrics History GPAL:G 0 P 0 0 0 0 Past Encounters Encounter ID Performer Location Encounter Start Date Encounter Closed Date Diagnosis/Indication Diagnosis SNOMED-CT Code Diagnosis ICD10 Code Diagnosis Note [id number] SUSANNAH BALLARD MD [facility] [address] [place] [id number] 01/01/2017 09:05:16 01/01/2017 11:50:36 Blood coagulation disorder 11538699 D68.59 History of non-Hodgkins lymphoma 551830886 Z85.72 [id number] SUSANNAH BALLARD MD [facility] [address] [place] [id number] 01/07/2018 08:49:47 01/07/2018 10:46:01 Non-Hodgkin's lymphoma (clinical) 160795725 C85.80 E78.5 Blood coag ulation disorder 96335902 D68.59 Morbid obesity 833319442 E66.01 [id number] SUSANNAH BALLARD MD [facility] [address] [place] [address] 01/11/2019 08:55:10 01/11/2019 11:07:29 [id number] MD [address] [place] [address] 02/11/2019 13:30:03 02/11/2019 15:57:14 Dysfunction of bilateral eustachian tubes 9322683004 947433 H69.93 Dizziness 042074457 R42 Nausea 434012274 R11.0 Migraine with aura 75412 06 G43.109 -hx Migraine 44299050 G43.90 [id number] [place] [id number] 02/11/2019 14:39:21 02/11/2019 15:44:54 Dysfunction of bilateral eustachian tubes 0962379373 966812 H69.93 [id number] SUSANNAH BALLARD MD [facility] [address] [place] [address] 01/12/2020 09:03:57 01/12/2020 11:16:40 [id number] SUSANNAH BALLARD MD [facility] [address] [place] [address] 01/10/2021 09:05:14 01/10/2021 12:50:40 [id number] SUSANNAH BALLARD MD [facility] [address] [place] [address] 01/03/2022 09:08:05 01/03/2022 11:54:52 Health Concerns Section Related Observation LastModified by Organization Detai ls LastModified Time None Recorded Concern Status LastModified by Organization Details LastModified Time None Recorded Advance Directives Directive None Recorded Payers Insurance Date Sequence Insurance Name Policy Number Policy Lynn Covered Member ID Lynn Member ID Guarantor Name 01/15/2022 2 [facility] [employer] (PPO) Jessica Odell [id number] Jessica Odell 01/11/2022 2 [facility] [employer] M[employer] (PPO) Jessica Odell [id number] Jessica Odell 01/10/2022 1 [facility] (MEDICAID HMO) Jessica Odell [id number] Jessica Odell 01/10/2022 GENERIC INSURANC E - MOVED-HOLD Jessica Odell 08/23/2021 1 [place] [id number] Oskar Odell [id number] Jessica Odell Notes Date Note Type Note Provider Name and Address Organization Details Recorded Time 01/01/2017 text/html Ms. 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 She had 8 cycles of ProMACE-CytaBom chemotherapy, followed by thoracic radiation. Other medical history is significant for anti-thrombin III deficiency, DVT and PE in 2013, continuing on Coumadin, hysterectomy with incidental appendectomy in 1997, arthritis and obesity. SUSANNAH BALLARD MD [address] [place] [address], [phone], [facility] 02/16/2017 21:48:36 01/07/2018 text/html Ms. 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 She had 8 cycles of ProMACE-CytaBom chemotherapy, followed by thoracic radiation. Other medical history is significant for anti-thrombin III deficiency, DVT and PE in 2013, continuing on Coumadin, hysterectomy with incidental appendectomy in 1997, arthritis and obesity. SUSANNAH BALLARD MD [address] [place] [address], [phone], [facility] 01/11/2018 18:00:27 02/11/2019 text/html Jessica is [...] sensitive to certain scents. MILKA WALKER MD [address] [place] [address], [phone], [facility] 02/11/2019 18:17:57 OBGyn Episode No OBEpisode recorded.
--- OUTSIDE RECORDS SUMMARY | 2024-10-21 08:24 | XMS_ITS | Data Portability ---
Author Organization [facility] c, HEM/ON[facility] CLOS[facility] Address [address] [place] [address] Care Team Providers Care Importer Exporter Name Role Phone JEAN CRUZ Hematology/Oncology STEPHANIE PEÑA Primary Care Provider Assessment Encounter Date Assessment Date Assessment LastModified by Organization Details LastModified Time 01/11/2019 01/11/2019 Ms. Odell is doing well, with no evidence of lymphoma recurrence, or secondary cancers related to her cancer treatment; I will see her back in 1 year. She will be scheduled for mammograms in Apr. hayde Not available 01/17/2019 18:59:51 01/12/2020 01/12/2020 Ms. [...] of cardiovascular disease was calculated using the [place] calculator, to be just over 8%, too [...] be set up for a CT at [facility] to evaluate for diverticulitis. Her total cholesterol and LDL are somewhat high; her 10 year risk of cardiovascular disease was calculated, using the [place] calculator, to be 6.6%, not high enough [...] By Organization Details Last Modified Time 01/11/2019 [id number] body mass index: care instructions Not available 01/17/2019 19:01:07 Body Mass Index: Care Instructions-LC Not available 01/17/2019 19:01:07 learning about healthy weight Not available 01/17/2019 19:01:07 01/10/2021 [id number] Body Mass Index: Care Instructions-LC Not available 01/14/2021 09:09:46 01/03/2022 [id number] Body Mass Index: Care Instructions-LC Not available 01/05/2022 20:02:41 Reason for Referral None Reported. Results Created Date Observation Date Name Description Value Unit Range Abnormal Flag Note LastModifiedBy Organization Detail LastModifiedTime 01/12/2001/11/2019 CBC w/ auto diff white blood cells 5.9 K/uL 3.8-10 .8 normal Not Available [facility] [address] [place], [address], 01/11/2019 09:02:43 01/12/2001/11/2019 CBC w/ auto diff red blood cells 4.35 M/uL 3.80-5 .20 normal Not Available [facility] [address] [place], [address], 01/11/2019 09:02:43 01/12/20 19 01/11/2019 CBC w/ auto diff hemoglobin 12.7 g/dL 12.0-1 6.0 normal Not Available [facility] [address] [place] [address], [address], 01/11/2019 09:02:43 01/12/2001/11/2019 CBC w/ auto diff hematocrit 37.6 % 35.0-4 7.0 normal Not Available [facility] [address] [place] [address], [address], 01/11/2019 09:02:43 01/12/2001/11/2019 CBC w/ auto diff MCV 87 fL 80-100 normal Not Available [facility] [address] [place] [address], [address], 01/11/2019 09:02:43 01/12/2001/11/2019 CBC w/ auto diff MCH 29 pg 26-35 normal Not Available [facility] [address] [place] [address], [address], 01/11/2019 09:02:43 01/12/2001/11/2019 CBC w/ auto diff MCHC 34 g/dL 32-36 normal Not Available [facility] [address] [place] [address], [address], 01/11/2019 09:02:43 01/12/2001/11/2019 CBC w/ auto diff RDW 14.5 % 11.0-1 5.0 normal Not Available [facility] [address] [place] [address], [address], 01/11/2019 09:02:43 01/12/2001/11/2019 CBC w/ auto diff MPV 7.3 fL 6.2-10 .5 normal Not Available [facility] [address] [place] [address], [address], 01/11/2019 09:02:43 01/12/2001/11/2019 CBC w/ auto diff platelet count 250 K/uL 130-40 0 normal Not Available [facility] [address] [place] [address], [address], 01/11/2019 09:02:43 01/12/2001/11/2019 CBC w/ auto diff neutrophil,a bsolute 2.4 K/uL 1.6-8. 4 normal Not Available [facility] [address] [place] [address], [address], 01/11/2019 09:02:43 01/12/2001/11/2019 CBC w/ auto diff lymphocyte,a bsolute 2.8 K/uL 0.4-5. 1 normal Not Available [facility] [address] [place] [address], [address], 01/11/2019 09:02:43 01/12/2001/11/2019 CBC w/ auto diff monocyte,abs olute 0.5 K/uL 0.0-1. 2 normal Not Available [facility] [address] [place] [address], [address], 01/11/2019 09:02:43 01/12/2001/11/2019 CBC w/ auto diff eosinophil,a bsolute 0.2 K/uL 0.0-0. 8 normal Not Available [facility] [address] [place] [address], [address], 01/11/2019 09:02:43 01/12/2001/11/2019 CBC w/ auto diff basophil,abs olute 0.1 K/uL 0.0-0. 3 normal Not Available [facility] [address] [place] [address], [address], 01/11/2019 09:02:43 01/12/2001/11/2019 CBC w/ auto diff % neutrophils 40.6 % 42.0-7 8.0 low Not Available [facility] [address] [place] [address], [address], 01/11/2019 09:02:43 01/12/20 19 01/11/2019 CBC w/ auto diff % lymphocytes 46.9 % 11.0-4 7.0 normal Not Available [facility] [address] [place], [address], 01/11/2019 09:02:43 01/12/2001/11/2019 CBC w/ auto diff % monocytes 8.2 % 0.0-11 .0 normal Not Available [facility] [address] [place] [address], [address], 01/11/2019 09:02:43 01/12/2001/11/2019 CBC w/ auto diff % eosinophils 3.4 % 0.0-7. 0 normal Not Available [facility] [address] [place] [address], [address], 01/11/2019 09:02:43 01/12/2001/11/2019 CBC w/ auto diff % basophils 0.9 % 0.0-3. 0 normal Not Available [facility] [address] [place] [address], [address], 01/11/2019 09:02:43 01/12/2001/11/2019 CBC w/ auto diff nucleated red cells 0.1 % 0.0-0. 9 normal Not Available [facility] [address] [place] [address], [address], 01/11/2019 09:02:43 01/12/2001/11/2019 CBC w/ auto diff nucleated RBCs, absolute 0.01 K/uL not estab. normal Not Available [facility] [address] [place] [address], [address], 01/11/2019 09:02:43 01/12/2001/11/2019 CMP, serum or plasm a glucose 108 mg/dL 74-100 high Not Available [facility] [address] [place], [address], 01/11/2019 09:17:19 01/12/2001/11/2019 CMP, serum or plasm a blood urea nitrogen 10 mg/dL 6-20 normal Not Available [facility] [address] [place] [address], [address], 01/11/2019 09:17:19 01/12/2001/11/2019 CMP, serum or plasm a creatinine 0.92 mg/dL 0.50-0 .95 normal Not Available [facility] [address] [place] [address], [address], 01/11/2019 09:17:19 01/12/2001/11/2019 CMP, serum or plasm a BUN/creatini ne ratio 11 (calc ) 10-20 normal Not Available [facility] [address] [place] [address], [address], 01/11/2019 09:17:19 01/12/2001/11/2019 CMP, serum or plasm a sodium 139 mmol/ L 136-14 5 normal Not Available [facility] [address] [place] [address], [address], 01/11/2019 09:17:19 01/12/2001/11/2019 CMP, serum or plasm a potassium 4.2 mmol/ L 3.4-5. 0 normal Not Available [facility] [address] [place] [address], [address], 01/11/2019 09:17:19 01/12/2001/11/2019 CMP, serum or plasm a chloride 101 mmol/ L 98-107 normal Not Available [facility] [address] [place] [address], [address], 01/11/2019 09:17:19 01/12/2001/11/2019 CMP, serum or plasm a carbon dioxide 24 mmol/ L 20-32 normal Not Available [facility] [address] [place] [address], [address], 01/11/2019 09:17:19 01/12/2001/11/2019 CMP, serum or plasm a anion gap 14 (calc ) 7-25 normal Not Available [facility] [address] [place] [address], [address], 01/11/2019 09:17:19 01/12/2001/11/2019 CMP, serum or plasm a calcium 9.0 mg/dL 8.6-10 .2 normal Not Available [facility] [address] [place] [address], [address], 01/11/2019 09:17:19 01/12/2001/11/2019 CMP, serum or plasm a total protein 6.8 g/dL 6.4-8. 3 normal Not Available [facility] [address] [place] [address], [address], 01/11/2019 09:17:19 01/12/2001/11/2019 CMP, serum or plasm a albumin 3.9 g/dL 3.5-5. 2 normal Not Available [facility] [address] [place] [address], [address], 01/11/2019 09:17:19 01/12/2001/11/2019 CMP, serum or plasm a globulin 2.9 g/dL_ (calc ) 1.5-4. 5 normal Not Available [facility] [address] [place] [address], [address], 01/11/2019 09:17:19 01/12/2001/11/2019 CMP, serum or plasm a albumin/glob ulin ratio 1.3 (calc ) 1.1-2. 5 normal Not Available [facility] [address] [place] [address], [address], 01/11/2019 09:17:19 01/12/2001/11/2019 CMP, serum or plasm a bilirubin, total 0.4 mg/dL 0.1-1. 2 normal Not Available [facility] [address] [place] [address], [address], 01/11/2019 09:17:19 01/12/2001/11/2019 CMP, serum or plasm a alkaline phosphatase 55 U/L 35-105 normal Not Available [facility] [address] [place], [address], 01/11/2019 09:17:19 01/12/2001/11/2019 CMP, serum or plasm a AST 16 U/L 0-32 normal Not Available [facility] [address] [place] [address], [address], 01/11/2019 09:17:19 01/12/2001/11/2019 CMP, serum or plasm a ALT 12 U/L 0-33 normal Not Available [facility] [address] [place] [address], [address], 01/11/2019 09:17:19 01/12/2001/11/2019 CMP, serum or plasm a GFR 81 >= 60 normal Not Available [facility] [address] [place], [address], 01/11/2019 09:17:19 01/12/2001/11/2019 CMP, serum or plasm [...] month s or longe r. Not Available [facility] [address] [place], [address], 01/11/2019 09:17:19 01/12/2001/12/2020 CBC w/ auto diff white blood cells 5.1 K/uL 3.8-10 .8 normal Not Available [facility] [address] [place] [address], [address], 01/12/2020 09:07:06 01/12/20 20 01/12/2020 CBC w/ auto diff red blood cells 4.59 M/uL 3.80-5 .20 normal Not Available [facility] [address] [place] [address], [address], 01/12/2020 09:07:06 01/12/20 20 01/12/2020 CBC w/ auto diff hemoglobin 13.3 g/dL 12.0-1 6.0 normal Not Available [facility] [address] [place] [address], [address], 01/12/2020 09:07:06 01/12/20 20 01/12/2020 CBC w/ auto diff hematocrit 39.6 % 35.0-4 7.0 normal Not Available [facility] [address] [place] [address], [address], 01/12/2020 09:07:06 01/12/2001/12/2020 CBC w/ auto diff MCV 86 fL 80-100 normal Not Available [facility] [address] [place] [address], [address], 01/12/2020 09:07:06 01/12/2001/12/2020 CBC w/ auto diff MCH 29 pg 26-35 normal Not Available [facility] [address] [place] [address], [address], 01/12/2020 09:07:06 01/12/2001/12/2020 CBC w/ auto diff MCHC 34 g/dL 32-36 normal Not Available [facility] [address] [place] [address], [address], 01/12/2020 09:07:06 01/12/2001/12/2020 CBC w/ auto diff RDW 14.5 % 11.0-1 5.0 normal Not Available [facility] [address] [place] [address], [address], 01/12/2020 09:07:06 01/12/20 20 01/12/2020 CBC w/ auto diff MPV 7.5 fL 6.2-10 .5 normal Not Available [facility] [address] [place] [address], [address], 01/12/2020 09:07:06 01/12/20 20 01/12/2020 CBC w/ auto diff platelet count 268 K/uL 130-40 0 normal Not Available [facility] [address] [place] [address], [address], 01/12/2020 09:07:06 01/12/20 20 01/12/2020 CBC w/ auto diff neutrophil,a bsolute 2.3 K/uL 1.6-8. 4 normal Not Available [facility] [address] [place] [address], [address], 01/12/2020 09:07:06 01/12/20 20 01/12/2020 CBC w/ auto diff lymphocyte,a bsolute 2.1 K/uL 0.4-5. 1 normal Not Available [facility] [address] [place] [address], [address], 01/12/2020 09:07:06 01/12/20 20 01/12/2020 CBC w/ auto diff monocyte,abs olute 0.4 K/uL 0.0-1. 2 normal Not Available [facility] [address] [place] [address], [address], 01/12/2020 09:07:06 01/12/20 20 01/12/2020 CBC w/ auto diff eosinophil,a bsolute 0.2 K/uL 0.0-0. 8 normal Not Available [facility] [address] [place] [address], [address], 01/12/2020 09:07:06 01/12/2001/12/2020 CBC w/ auto diff basophil,abs olute 0.1 K/uL 0.0-0. 3 normal Not Available [facility] [address] [place] [address], [address], 01/12/2020 09:07:06 01/12/2001/12/2020 CBC w/ auto diff % neutrophils 44.0 % 42.0-7 8.0 normal Not Available [facility] [address] [place] [address], [address], 01/12/2020 09:07:06 01/12/2001/12/2020 CBC w/ auto diff % lymphocytes 41.2 % 11.0-4 7.0 normal Not Available [facility] [address] [place] [address], [address], 01/12/2020 09:07:06 01/12/2001/12/2020 CBC w/ auto diff % monocytes 8.1 % 0.0-11 .0 normal Not Available [facility] [address] [place] [address], [address], 01/12/2020 09:07:06 01/12/2001/12/2020 CBC w/ auto diff % eosinophils 4.3 % 0.0-7. 0 normal Not Available [facility] [address] [place] [address], [address], 01/12/2020 09:07:06 01/12/2001/12/2020 CBC w/ auto diff % basophils 2.4 % 0.0-3. 0 normal Not Available [facility] [address] [place] [address], [address], 01/12/2020 09:07:06 01/12/2001/12/2020 CBC w/ auto diff nucleated red cells 0.0 % 0.0-0. 9 normal Not Available [facility] [address] [place] [address], [address], 01/12/2020 09:07:06 01/12/2001/12/2020 CBC w/ auto diff nucleated RBCs, absolute 0.00 K/uL not estab. normal Not Available [facility] [address] [place] [address], [address], 01/12/2020 09:07:06 01/12/20 20 01/12/2020 CMP, serum or plasm a glucose 105 mg/dL 74-100 high Not Available [facility] [address] [place] [address], [address], 01/12/2020 09:32:21 01/12/20 20 01/12/2020 CMP, serum or plasm a blood urea nitrogen 8 mg/dL 6-20 normal Not Available [facility] [address] [place] [address], [address], 01/12/2020 09:32:21 01/12/20 20 01/12/2020 CMP, serum or plasm a creatinine 0.86 mg/dL 0.50-0 .95 normal Not Available [facility] [address] [place] [address], [address], 01/12/2020 09:32:21 01/12/2001/12/2020 CMP, serum or plasm a BUN/creatini ne ratio 9 (calc ) 10-20 low Not Available [facility] [address] [place] [address], [address], 01/12/2020 09:32:21 01/12/2001/12/2020 CMP, serum or plasm a sodium 139 mmol/ L 136-14 5 normal Not Available [facility] [address] [place] [address], [address], 01/12/2020 09:32:21 01/12/2001/12/2020 CMP, serum or plasm a potassium 4.2 mmol/ L 3.4-5. 0 normal Not Available [facility] [address] [place] [address], [address], 01/12/2020 09:32:21 01/12/2001/12/2020 CMP, serum or plasm a chloride 103 mmol/ L 98-107 normal Not Available [facility] [address] [place] [address], [address], 01/12/2020 09:32:21 01/12/20 20 01/12/2020 CMP, serum or plasm a carbon dioxide 28 mmol/ L 20-32 normal Not Available [facility] [address] [place] [address], [address], 01/12/2020 09:32:21 01/12/20 20 01/12/2020 CMP, serum or plasm a anion gap 8 (calc ) 7-25 normal Not Available [facility] [address] [place] [address], [address], 01/12/2020 09:32:21 01/12/2001/12/2020 CMP, serum or plasm a calcium 9.1 mg/dL 8.6-10 .2 normal Not Available [facility] [address] [place] [address], [address], 01/12/2020 09:32:21 01/12/2001/12/2020 CMP, serum or plasm a total protein 6.7 g/dL 6.4-8. 3 normal Not Available [facility] [address] [place] [address], [address], 01/12/2020 09:32:21 01/12/2001/12/2020 CMP, serum or plasm a albumin 4.1 g/dL 3.5-5. 2 normal Not Available [facility] [address] [place] [address], [address], 01/12/2020 09:32:21 01/12/2001/12/2020 CMP, serum or plasm a globulin 2.6 g/dL_ (calc ) 1.5-4. 5 normal Not Available [facility] [address] [place] [address], [address], 01/12/2020 09:32:21 01/12/2001/12/2020 CMP, serum or plasm a albumin/glob ulin ratio 1.6 (calc ) 1.1-2. 5 normal Not Available [facility] [address] [place] [address], [address], 01/12/2020 09:32:21 01/12/20 20 01/12/2020 CMP, serum or plasm a bilirubin, total 0.3 mg/dL 0.1-1. 2 normal Not Available [facility] [address] [place] [address], [address], 01/12/2020 09:32:21 01/12/20 20 01/12/2020 CMP, serum or plasm a alkaline phosphatase 58 U/L 35-105 normal Not Available [facility] [address] [place] [address], [address], 01/12/2020 09:32:21 01/12/2001/12/2020 CMP, serum or plasm a AST 20 U/L 0-32 normal Not Available [facility] [address] [place] [address], [address], 01/12/2020 09:32:21 01/12/2001/12/2020 CMP, serum or plasm a ALT 12 U/L 0-33 normal Not Available [facility] [address] [place] [address], [address], 01/12/2020 09:32:21 01/12/2001/12/2020 CMP, serum or plasm a GFR 87 >= 60 normal Not Available [facility] [address] [place] [address], [address], 01/12/2020 09:32:21 01/12/2001/12/2020 CMP, serum or plasm [...] month s or longe r. Not Available [facility] [address] [place] [address], [address], 01/12/2020 09:32:21 01/04/20 22 01/03/2022 COMPL ETE BLOOD COUNT white blood cells 6.9 K/uL 3.8-10 .8 normal Not Available [facility] [address] [place], [address], 01/03/2022 09:22:33 01/04/2001/03/2022 COMPL ETE BLOOD COUNT red blood cells 4.85 M/uL 3.80-5 .20 normal Not Available [facility] [place], [address], 01/03/2022 09:22:33 01/04/20 22 01/03/2022 COMPL ETE BLOOD COUNT hemoglobin 13.6 g/dL 12.0-1 6.0 normal Not Available [facility] [address] [place] [address], [address], 01/03/2022 09:22:33 01/04/2001/03/2022 COMPL ETE BLOOD COUNT hematocrit 40.8 % 35.0-4 7.0 normal Not Available [facility] [address] [place], [address], 01/03/2022 09:22:33 01/04/2001/03/2022 COMPL ETE BLOOD COUNT MCV 84 fL 80-100 normal Not Available [facility] [place], [address], 01/03/2022 09:22:33 01/04/20 22 01/03/2022 COMPL ETE BLOOD COUNT MCH 28 pg 26-35 normal Not Available [facility] [address] [place] [address], [address], 01/03/2022 09:22:33 01/04/20 22 01/03/2022 COMPL ETE BLOOD COUNT MCHC 33 g/dL 32-36 normal Not Available [facility] [address] [place] [address], [address], 01/03/2022 09:22:33 01/04/20 22 01/03/2022 COMPL ETE BLOOD COUNT RDW 15.1 % 11.0-1 5.0 high Not Available [facility] [address] [place] [address], [address], 01/03/2022 09:22:33 01/04/20 22 01/03/2022 COMPL ETE BLOOD COUNT MPV 7.1 fL 6.2-10 .5 normal Not Available [facility] [address] [place] [address], [address], 01/03/2022 09:22:33 01/04/20 22 01/03/2022 COMPL ETE BLOOD COUNT platelet count 328 K/uL 130-40 0 normal Not Available [facility] [address] [place] [address], [address], 01/03/2022 09:22:33 01/04/20 22 01/03/2022 COMPL ETE BLOOD COUNT neutrophil,a bsolute 2.9 K/uL 1.6-8. 4 normal Not Available [facility] [address] [place] [address], [address], 01/03/2022 09:22:33 01/04/20 22 01/03/2022 COMPL ETE BLOOD COUNT lymphocyte,a bsolute 3.0 K/uL 0.4-5. 1 normal Not Available [facility] [address] [place] [address], [address], 01/03/2022 09:22:33 01/04/20 22 01/03/2022 COMPL ETE BLOOD COUNT monocyte,abs olute 0.7 K/uL 0.0-1. 2 normal Not Available [facility] [address] [place] [address], [address], 01/03/2022 09:22:33 01/04/20 22 01/03/2022 COMPL ETE BLOOD COUNT eosinophil,a bsolute 0.2 K/uL 0.0-0. 8 normal Not Available [facility] [address] [place] [address], [address], 01/03/2022 09:22:33 01/04/20 22 01/03/2022 COMPL ETE BLOOD COUNT basophil,abs olute 0.1 K/uL 0.0-0. 3 normal Not Available [facility] [address] [place] [address], [address], 01/03/2022 09:22:33 01/04/20 22 01/03/2022 COMPL ETE BLOOD COUNT % neutrophils 42.0 % 42.0-7 8.0 normal Not Available [facility] [address] [place] [address], [address], 01/03/2022 09:22:33 01/04/20 22 01/03/2022 COMPL ETE BLOOD COUNT % lymphocytes 42.8 % 11.0-4 7.0 normal Not Available [facility] [address] [place] [address], [address], 01/03/2022 09:22:33 01/04/20 22 01/03/2022 COMPL ETE BLOOD COUNT % monocytes 10.6 % 0.0-11 .0 normal Not Available [facility] [address] [place] [address], [address], 01/03/2022 09:22:33 01/04/20 22 01/03/2022 COMPL ETE BLOOD COUNT % eosinophils 3.5 % 0.0-7. 0 normal Not Available [facility] [address] [place] [address], [address], 01/03/2022 09:22:33 01/04/20 22 01/03/2022 COMPL ETE BLOOD COUNT % basophils 1.1 % 0.0-3. 0 normal Not Available [facility] [address] [place] [address], [address], 01/03/2022 09:22:33 01/04/20 22 01/03/2022 COMPL ETE BLOOD COUNT nucleated red cells 0.0 % 0.0-0. 9 normal Not Available [facility] [address] [place] [address], [address], 01/03/2022 09:22:33 01/04/20 22 01/03/2022 COMPL ETE BLOOD COUNT nucleated RBCs, absolute 0.00 K/uL not estab. normal Not Available [facility] [address] [place] [address], [address], 01/03/2022 09:22:33 01/04/20 22 01/03/2022 COMP. METAB OLIC PANEL glucose 108 mg/dL 74-100 high Not Available [facility] [address] [place] [address], [address], 01/03/2022 09:58:10 01/04/20 22 01/03/2022 COMP. METAB OLIC PANEL blood urea nitrogen 8 mg/dL 6-20 normal Not Available [facility] [address] [place] [address], [address], 01/03/2022 09:58:10 01/04/20 22 01/03/2022 COMP. METAB OLIC PANEL creatinine 0.91 mg/dL 0.50-0 .95 normal Not Available [facility] [address] [place] [address], [address], 01/03/2022 09:58:10 01/04/20 22 01/03/2022 COMP. METAB OLIC PANEL BUN/creatini ne ratio 9 (calc ) 10-20 low Not Available [facility] [address] [place] [address], [address], 01/03/2022 09:58:10 01/04/20 22 01/03/2022 COMP. METAB OLIC PANEL sodium 139 mmol/ L 136-14 5 normal Not Available [facility] [address] [place] [address], [phone], 01/03/2022 09:58:10 01/04/20 22 01/03/2022 COMP. METAB OLIC PANEL potassium 4.5 mmol/ L 3.4-5. 0 normal Not Available [facility] [address] [place] [address], [phone], 01/03/2022 09:58:10 01/04/20 22 01/03/2022 COMP. METAB OLIC PANEL chloride 100 mmol/ L 98-107 normal Not Available [facility] [address] [place] [address], [phone], 01/03/2022 09:58:10 01/04/20 22 01/03/2022 COMP. METAB OLIC PANEL carbon dioxide 28 mmol/ L 22-31 normal Not Available [facility] [address] [place] [address], [phone], 01/03/2022 09:58:10 01/04/20 22 01/03/2022 COMP. METAB OLIC PANEL anion gap 11 (calc ) 7-25 normal Not Available [facility] [address] [place] [address], [phone], 01/03/2022 09:58:10 01/04/20 22 01/03/2022 COMP. METAB OLIC PANEL calcium 9.8 mg/dL 8.6-10 .2 normal Not Available [facility] [address] [place] [address], [address], 01/03/2022 09:58:10 01/04/20 22 01/03/2022 COMP. METAB OLIC PANEL total protein 7.9 g/dL 6.4-8. 3 normal Not Available [facility] [address] [place] [address], [address], 01/03/2022 09:58:10 01/04/20 22 01/03/2022 COMP. METAB OLIC PANEL albumin 4.4 g/dL 3.5-5. 2 normal Not Available [facility] [address] [place] [address], [address], 01/03/2022 09:58:10 01/04/20 22 01/03/2022 COMP. METAB OLIC PANEL globulin 3.5 g/dL_ (calc ) 1.5-4. 5 normal Not Available [facility] [address] [place] [address], [address], 01/03/2022 09:58:10 01/04/20 22 01/03/2022 COMP. METAB OLIC PANEL albumin/glob ulin ratio 1.3 (calc ) 1.1-2. 5 normal Not Available [facility] [address] [place] [address], [address], 01/03/2022 09:58:10 01/04/20 22 01/03/2022 COMP. METAB OLIC PANEL bilirubin, total 0.5 mg/dL 0.1-1. 2 normal Not Available [facility] [address] [place] [address], [address], 01/03/2022 09:58:10 01/04/20 22 01/03/2022 COMP. METAB OLIC PANEL alkaline phosphatase 73 U/L 30-121 normal Not Available [facility] [address] [place] [address], [phone], 01/03/2022 09:58:10 01/04/20 22 01/03/2022 COMP. METAB OLIC PANEL AST 25 U/L 0-32 normal Not Available [facility] [address] [place] [address], [address], 01/03/2022 09:58:10 01/04/20 22 01/03/2022 COMP. METAB OLIC PANEL ALT 17 U/L 0-33 normal Not Available [facility] [address] [place], [address], 01/03/2022 09:58:10 01/04/20 22 01/03/2022 COMP. METAB OLIC PANEL GFR 73 >= 60 normal NOT E New calcu latio n for GFR (CKD- EPI 2020) is formu lated witho ut race adjus tment facto rs at the recom menda tion of the [facility] ation and Amchio Schultze ty of Nephr ology . This calcu latio n has not been valid ated in pregn ant women . For pedia anjana patie nts refer to https ://leona loja.venancio rg/pr jamila burden s/KDO QI/gf r_cal culat orPed Not Available [facility] [address] [place] [address], [address], 01/03/2022 09:58:10 01/04/20 22 01/03/2022 LIPID PROFI LE HDL cholesterol 63 mg/dL 50-242 normal Not Available [facility] [address] [place], [address], 01/03/2022 09:58:12 01/04/20 22 01/03/2022 LIPID PROFI LE triglyceride s 162 mg/dL 0-149 high TRIGL YCERI DE RANGE S SUSI L: < 150 BORDE RLINE HIGH: 150 - 199 HIGH: 200 - 499 VERY HIGH: > OR = 500 Not Available [facility] [address] [place], [address], 01/03/2022 09:58:12 01/04/20 22 01/03/2022 LIPID PROFI LE cholesterol 264 mg/dL 0-199 high ELVA STERO L (TOTA L) RANGE S WU ABLE: < 200 BORDE RLINE : 200 - 239 HIGHE R RISK: > 239 Not Available [facility] [address] [place], [address], 01/03/2022 09:58:12 01/04/20 22 01/03/2022 LIPID PROFI LE LDL cholesterol 169 mg/dL _(diaz c) 0-99 high LDL ELVA STERO L RANGE S OPTIM AL: < 100 NEAR/ ABOVE OPTIM AL: 100 - 129 BORDE RLINE HIGH: 130 - 159 HIGH: 160 - 189 VERY HIGH: > OR = 190 Not Available [facility] [address] [facility], [place], [address], 01/03/2022 09:58:12 05/18/19 20 05/14/2019 MAMMO , scree mary beth, tomos ynthe sis, bilat eral, w/ CAD No observ ation record ed. [address] [facility] [address] [place], [id number], 01/15/2020 12:48:48 05/22/19 21 05/16/2020 MAMMO , scree mary beth, tomos ynthe sis, bilat eral, w/ CAD No observ ation record ed. [address], [place], [address], 01/14/2021 09:10:34 01/04/20 22 05/23/2021 MAMMO , scree mary beth, bilat eral, w/ CAD No observ ation record ed. [address] (Med Record) [address] [place] [address] [address], [place], [address], 01/03/2022 17:21:15 01/10/20 22 01/09/2022 CT, abdom en + pelvi s, w/ contr ast No observ ation record ed. [email or web address] [address], [place], [address], 01/16/2022 13:33:50 Result Notes None recorded. Problems Name Problem SNOMED Code Status Onset Date Resolution Date Notes Provider Name and Address Organization Details Recorded Time History of non-Hodgkin s lymphoma 264689821 Active 2018 JEAN CRUZ MD [address] [place] [address], [address], [facility] 9 19:00:07 History of radiation therapy to chest 7232493177234 4 Active 2018 JEAN CRUZ MD [address] [place] [address], [address], [facility] 9 19:00:33 Antithrombi n III deficiency 40113882 Active 2018 JEAN CRUZ MD [address] [place] [address], [address], [facility] 9 19:01:22 Long-term current use of anticoagula nt 192600063 Active 2018 JEAN CRUZ MD [address] [place] [address], [address], [facility] 9 19:01:34 Left upper quadrant pain 128315553 Active 2021 JEAN CRUZ MD [address] [place] [address], [address], [facility] 2 20:00:44 Problem Notes None recorded. Procedures Surgical History Date Name Laterality Status Provider Name and Address Organization Details Recorded Time 07/05/19 22 Pacemaker completed Graciela Escudero [facility] 01/03/2022 10:18:39 04/21/18 97 Total Hysterectomy completed Tanesha Chino [facility] 01/12/2020 09:16:55 Imaging Results None recorded. Procedure Notes None recorded. Medical Equipment None Reported. Allergies Allergen ID Allergen Name Allergen Category Reaction Reaction Severity Criticality Documentation Date Start Date Code Code System Note Provider Name and Address Organization Details Recorded Time 703680 Calan medicatio n other severe Not available 01/11/2019 22625 0 RxNorm panic attac k Medinacharity Urena [facility] 9 09:09:08 017459 hydrocodo ne Not available Not available Not available Not available 01/11/2019 5489 RxNorm pvcs and pacs Medina Urena [facility] 9 09:09:18 865207 Prilosec medicatio n Not available Not available Not available 01/11/2019 49645 5 RxNorm [place] Urena [facility] 9 09:09:26 215186 Xarelto medicatio n itching severe Not available 01/11/2019 49492 99 RxNorm [place] Urena [facility] 9 09:03:59 Medications Name Sig [...] Updated DateTime 2 165.1 cm 45.4 kg/m2 981817. 07 g 97.7 [degF] 72 /min 98 % 98 % 120 mm[Hg] 77 mm[Hg] Graciela Escudero [facility] 2 10:26:19 Date Recorded Body height Body mass index (BMI) Body weight Body temperature Heart rate Oxygen saturation Oxygen saturation in Arterial blood by Pulse oximetry Systolic blood pressure Diastolic blood pressure Provider Name and Address Organization Details Last Updated DateTime 1 165.1 cm 46.1 kg/m2 458535. 44 g 97.5 [degF] 67 /min 96 % 96 % 125 mm[Hg] 79 mm[Hg] Tanesha Chino [facility] 1 10:04:34 Date Recorded Body weight Body mass index (BMI) Body height Heart rate Oxygen saturation Oxygen saturation in Arterial blood by Pulse oximetry Body temperature Systolic blood pressure Diastolic blood pressure Provider Name and Address Organization Details Last Updated DateTime 9 688609. 64 g 47.1 kg/m2 165.1 cm 72 /min 97 % 97 % 97.7 [degF] 112 mm[Hg] 72 mm[Hg] Medina Urena [facility] 9 09:15:16 Date Recorded Body height Oxygen saturation Oxygen saturation in Arterial blood by Pulse oximetry Heart rate Body mass index (BMI) Body weight Systolic blood pressure Diastolic blood pressure Provider Name and Address Organization Details Last Updated DateTime 0 165.1 cm 98 % 98 % 75 /min 46.1 kg/m2 750904. 09 g 130 mm[Hg] 80 mm[Hg] Tanesha Chino [facility] 0 09:19:11 Social History Question Answer Notes LastModified by Online Dealer Details LastModified Time Tobacco Smoking Status Never Smoker Med[place] [facility] 01/11/2019 09:11:34 How Much Tobacco Do You Chew? None Information not available 01/11/2019 Have You Been To An Area Known To Be High Risk For COVID-19? No [email or web address] Information not available 01/12/2020 Live Alone Or With Others? With Others [email or web address] Information not available 01/12/2020 Education Level College [email or web address] Informati on not available 01/12/2020 Learning Preferences Verbal/writt en Information not available 01/10/2021 Marital Status Informatio n not available 01/12/2020 What Was The Date Of Your Most Recent Tobacco Screening? 01/03/2022 [email or web address] Information not available 01/03/2022 How Many Children Do You Have? 1 [email or web address] Information not available 01/12/2020 What Is Your Relationship Status? Information not available 01/10/2021 How Much Tobacco Do You Smoke? No Information not available 01/11/2019 Has Tobacco Cessation Counseling Been Provided? No [email or web address] Information not available 01/10/2021 How Many Years Have You Smoked Tobacco? 0 Information not available 01/11/2019 Sex: Female Functional Status Question Answer Note LastModified by Organizat ion Details LastModified Time Do you use any illicit or recreational drugs? No [email or web address] Information not available 01/10/2021 Do you or have you ever used any other forms of tobacco or nicotine? No [email or web address] Information not available 01/10/2021 What is your level of alcohol consumption? None Information not available 01/11/2019 Do you or have you ever used smokeless tobacco? Never used [email or web address] tobacco Information not available 01/11/2019 What is your occupation? unemployed [email or web address] Information not available 01/12/2020 Do you or have you ever used e-cigarettes or vape? Never used electronic cigarettes Information not available 01/11/2019 Mental Status None recorded. Family History Relationship Description Onset Age of this Age Resolved Age Notes LastModified by Organization Details LastModified Time Father No current problems or disability Not available 01/11 09:15:22 Mother No current problems or disability Not available 01/11 09:15:22 Medical History Condition Response Hypertension Y Gynecological HistoryNo gynecological history recorded. Obstetrics History GPAL:G 0 P 0 0 0 0 Immunizations Vaccine Type Date Status Note Provider Nam e and Address Organization Details Recorded Time COVID-19, mRNA, LNP-S, PF, 100 mcg/0.5mL dose or 50 mcg/0.25mL dose 06/20/2020 completed Tanesha Chino [facility] 01/10/2021 10:01:11 COVID-19, mRNA, LNP-S, PF, 100 mcg/0.5mL dose or 50 mcg/0.25mL dose 07/18/2020 completed Tanesha Chino [facility] 01/10/2021 10:01:17 Past Encounters Encounter ID Performer Location Encounter Start Date Encounter Closed Date Diagnosis/Indication Diagnosis SNOMED-CT Code Diagnosis ICD10 Code Diagnosis Note [id number] JEAN CRUZ MD [facility] [address],[facility] [place] [address] 01/01/2017 09:05:16 01/01/2017 11:50:36 [id number] JEAN CRUZ MD [facility] [address],[facility] [address] [place] [address] 01/07/2018 08:49:47 01/07/2018 10:46:01 [id number] JEAN CRUZ MD HEM/[facility]C [facility] [address] [place] [address] 01/11/2019 08:55:10 01/11/2019 11:07:29 History of non-Hodgkins lymphoma 325765574 Z85.72 History of radiation therapy to chest 9159065553 9104 Z92.3 Body mass index 40+ - severely obese 313786197 Z68.42 Antithromb in III deficiency 59494267 D68.59 Long-term drug therapy 097400616 Z79.885 [id number] MILKA WALKER MD [place] [address] [place] [address] 02/11/2019 13:30:03 02/11/2019 15:57:14 [id number] SHELBY DANIELS [place] [address] [place] [address] 02/11/2019 14:39:21 02/11/2019 15:44:54 [id number] JEAN CRUZ MD HEM/[facility]C [facility] [address] [place] [address] 01/12/2020 09:03:57 01/12/2020 11:16:40 History of non-Hodgkins lymphoma 806434999 Z85.72 [id number] JEAN CRUZ MD HEM/[facility]C [facility] [address] [place] [address] 01/10/2021 09:05:14 01/10/2021 12:50:40 History of non-Hodgkins lymphoma 868928736 Z85.72 Antithromb in III deficiency 94630815 D68.59 History of radiation therapy to chest 2079523674 9104 Z92.3 Long-term current use of anticoagulant 006132819 Z79.01 Body mass index 40+ - severely obese 703104825 Z68.42 [id number] JEAN CRUZ MD HEM/[facility]C [facility] [address] [place] [address] 01/03/2022 09:08:05 01/03/2022 11:54:52 Antithrombin III deficiency 62525654 D68.59 History of radiation therapy to chest 3640827325 9104 Z92.3 History of non-Hodgkins lymphoma 390544336 Z85.72 Long-term current use of anticoagulant 722547034 Z79.01 Left upper quadrant pain 527543827 R10.12 Body mass index 40+ - severely obese 903725490 Z68.42 Health Concerns Section Related Observation LastModified by Organization Detai ls LastModified Time None Recorded Concern Status LastModified by Organization Details LastModified Time None Recorded Advance Directives Directive None Recorded Payers Insurance Date Sequence Insurance Name Policy Number Policy Lynn Covered Member ID Lynn Member ID Guarantor Name 01/15/2022 2 [place] [facility] (PPO) Jessica Odell [id number] Jessica Odell 01/11/2022 2 [facility] [employer] - MULTIPLAN (PPO) Jessica Odell [id number] Jessica Odell 01/10/2022 1 [facility] (MEDICAID HMO) Jessica Odell [id number] Jessica Odell 01/10/2022 GENERIC INSURANC E - MOVED-HOLD Jessica Odell 08/23/2021 1 [place] [id number] Oskar Odell [id number] Jessica Odell Notes Date Note Type Note Provider Name and Address Organization Details Recorded Time 9 text/html HPIReported bypatient.Advanced Directives / BioBank AuthorizationsAdvanced Directives? NO Dischargedischarge disposition stable Distress ScreeningHas the distress screening been completed in the last 45 days? YES; Distress level 0 no stress Practical Problemsno practical problems Family Problemsno family problems Emotional Problemsno emotional problems Spiritual/Religiousspiritua l/orthodox problems? NO Physical Problemsno physical problems Nutrition ScreeningNutrition Screening YES; special diet restrictions? describe:; Nutrition counseling last 6 months? NO; Nutrition Protocol implemented? NO Ms. 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 She had 8 cycles of ProMACE-CytaBom chemotherapy, followed by thoracic radiation. Other medical history is significant for anti-thrombin III deficiency, DVT and PE in 2013, continuing on Coumadin, hysterectomy with incidental appendectomy in 1997, arthritis and obesity. JEAN CRUZ MD [address] [place] [address], [address], [facility] 01/17/2019 19:04:19 0 text/html HPIReported bypatient.Advanced Directives / BioBank AuthorizationsAdvanced Directives? NO Dischargedischarge disposition stable Distress ScreeningHas the distress screening been completed in the last 45 days? YES; Distress level 0 no stress Practical Problemsno practical problems Family Problemsno family problems Emotional Problemsno emotional problems Spiritual/Religiousspiritua l/orthodox problems? NO Physical Problemsweight loss;weight gain Nutrition ScreeningNutrition Screening YES; special diet restrictions? describe:; Nutrition counseling last 6 months? NO; Nutrition Protocol implemented? NO Ms. 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 She had 8 cycles of ProMACE-CytaBom chemotherapy, followed by thoracic radiation. Other medical history is significant for anti-thrombin III deficiency, DVT and PE in 2013, continuing on Coumadin, hysterectomy with incidental appendectomy in 1997, arthritis and obesity. JEAN CRUZ MD [address] [place] [address], [address], [facility] 01/15/2020 12:49:09 1 text/html [place] HPIReported bypatient.patient accompanied by:patient accompanied by spouse Advanced Directives / BioBank AuthorizationsAdvanced Directives? NO Dischargedischarge mode ambulatory; discharge disposition stable Distress ScreeningHas the distress screening been completed in the last 45 days? YES; Distress level 0 no stress Practical Problemsno practical problems Family Problemsno family problems Emotional Problemsno emotional problems Spiritual/Religiousspiritua l/orthodox problems? NO Physical Problemsno physical problems Nutrition ScreeningNutrition Screening YES; special diet restrictions? describe:; Nutrition counseling last 6 months? NO; Nutrition Protocol implemented? NO Ms. 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 She had 8 cycles of ProMACE-CytaBom chemotherapy, followed by thoracic radiation. Other medical history is significant for anti-thrombin III deficiency, DVT and PE in 2013, continuing on Coumadin, hysterectomy with incidental appendectomy in 1997, arthritis and obesity. JEAN CRUZ MD [address] [place] [address], [phone], [facility] 01/14/2021 09:13:56 2 text/html HPIReported bypatient.patient accompanied by:patient accompanied by spouse Advanced Directives / BioBank AuthorizationsAdvanced Directives? NO Dischargedischarge mode ambulatory; discharge disposition stable Distress ScreeningHas the distress screening been completed in the last 45 days? YES; Distress level 0 no stress Practical Problemsno practical problems Family Problemsno family problems Emotional Problemsno emotional problems Spiritual/Religiousspiritua l/orthodox problems? NO Physical Problemsno physical problems Nutrition ScreeningNutrition Screening YES; special diet restrictions? describe:; Nutrition counseling last 6 months? NO; Nutrition Protocol implemented? NO Ms. 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 She had 8 cycles of ProMACE-CytaBom chemotherapy, followed by thoracic radiation. Other medical history is significant for anti-thrombin III deficiency, DVT and PE in 2013, continuing on Coumadin, hysterectomy with incidental appendectomy in 1997, arthritis and obesity. JEAN CRUZ MD [address] [place] [address], [address], [facility] 01/05/2022 20:04:05 OBGyn Episode No OBEpisode recorded.
[2024-10-21 10:00] LABS: PHA INR Fingerstick 3.1 (0.9-1.1)
== END 2024-10-21 10:10 ==
LOC: ACC 08:21
PROVIDERS: PCP Internal Medicine; Visit Provider Internal Medicine
DX: Z09 Encounter for follow-up examination after completed treatment for conditions other than malignant neoplasm (principal); Z86.718 Personal history of other venous thrombosis and embolism
CPT/HCPCS: 85610; 99211; G0463

== ENCOUNTER 2024-12-06 10:20 | Outpatient (CLI) | payer OTHER, SELFPAY ==
--- OUTSIDE RECORDS SUMMARY | 2024-12-06 10:22 | XMS_ITS | Encounter Summary ---
Author Organization Healthcare Address [address] [place] [address] Care Team Providers Care Command Post Superintendent Name Role Phone Martin Khan MD Primary Care Provider [phone] Encounter Details Date Type Department Care Team (Late st Contact Info) Description 01/03/2022 Orders Only [facility] [address] [place] [phone] Susannah Ballard MD [address] [phone] Social History Tobacco Use Types Packs/Day Years [...] HDL Cholesterol 63 50 - 242 mg/dL [facility] External Triglycerides 162(H) 0 - 149 mg/dL [facility] Comment: TRIGLYCERIDE RANGES NORMAL: < 150 BORDERLINE HIGH: 150 - 199 HIGH: 200 - 499 VERY HIGH: > OR = 500 External Cholesterol 264(H) 0 - 199 mg/dL [facility] Comment: CHOLESTEROL (TOTAL) RANGES DESIRABLE: < 200 BORDERLINE: 200 - 239 HIGHER RISK: > 239 External LDL Cholesterol 169(H) 0 - 99 mg/dl (calc) [facility] Comment: LDL CHOLESTEROL RANGES OPTIMAL: < 100 NEAR/ABOVE OPTIMAL: 100 - 129 BORDERLINE HIGH: 130 - 159 HIGH: 160 - 189 VERY HIGH: > OR = 190 01/03/2022 8:55 AM EDT 01/03/2022 9:15 AM EDT us Susannah Ballard MD LAB BLOOD ORDERABLES Final Res ult [facility] [address] [place] [address], documented in this encounter Visit Diagnoses Not on filedocumented in this encounter Additional Health Concerns Assessment Noted Time A Body Mass Index follow-up plan has been documented for the patient 12/31/2022 6:20 PM EDT documented as of this encounter Care Teams Command Post Superintendent Relationship Specialty Start Date End Date Martin Khan MD [address] [facility] [address] [place] [address] PCP - General 09/01/20 documented as of this encounter
--- OUTSIDE RECORDS SUMMARY | 2024-12-06 10:22 | XMS_ITS | Encounter Summary ---
Author Organization Healthcare Address [address] [place] [address] Care Team Providers Care Educational Advisor Name Role Phone Martin Khan MD Primary Care Provider [phone] Encounter Details Date Type Department Care Team (Late st Contact Info) Description 01/03/2022 Orders Only [facility] [address] [place] [phone] Susannah Ballard MD [address] [address] Social History Tobacco Use Types [...] External Glucose 108(H) 74 - 100 mg/dL [facility] External BUN 8 6 - 20 mg/dL [facility] External Creatinine Blood 0.91 0.50 - 0.95 mg/dL [facility] External BUN/Creat Ratio 9(L) 10 - 20 (calc) [facility] External Sodium 139 136 - 145 mmol/L [facility] External Potassium 4.5 3.4 - 5.0 mmol/L [facility] External Chloride 100 98 - 107 mmol/L [facility] External Carbon Dioxide 28 22 - 31 mmol/L [facility] External Anion Gap (AG) 11 7 - 25 (calc) [facility] External Calcium 9.8 8.6 - 10.2 mg/dL [facility] External Total Protein 7.9 6.4 - 8.3 g/dL [facility] External Albumin 4.4 3.5 - 5.2 g/dL [facility] External Globulin 3.5 1.5 - 4.5 g/dL (calc) [facility] External Albumin/Globulin Ratio 1.3 1.1 - 2.5 (calc) [facility] External Bilirubin Total 0.5 0.1 - 1.2 mg/dL [facility] External Alkaline Phosphatase 73 30 - 121 U/L [facility] External AST (SGOT) 25 0 - 32 U/L [facility] External ALT (SGPT) 17 0 - 33 U/L [facility] External Estimated GFR 73 >=60 [facility] Comment: NOTE New calculation for GFR (CKD-EPI 2020) is formulated without race adjustment factors at the recommendation of the National Kidney Foundation and [place] [employer] Neph[employer]. This calculation has not been validated in women. For pediatric patients refer to https://www.kidney.org/professionals/KDOQI/gfr_calculatorPed 01/03/2022 8:55 AM EDT 01/03/2022 9:15 AM EDT us Susannah Ballard MD LAB BLOOD ORDERABLES Final Res ult [facility] [place] [address], documented in this encounter Visit Diagnoses Not on filedocumented in this encounter Additional Health Concerns Assessment Noted Time A Body Mass Index follow-up plan has been documented for the patient 12/31/2022 6:20 PM EDT documented as of this encounter Care Teams Educational Advisor Relationship Specialty Start Date End Date Martin Khan MD [address] [place] [address] PCP - General 09/01/20 documented as of this encounter
--- OUTSIDE RECORDS SUMMARY | 2024-12-06 10:22 | XMS_ITS | Encounter Summary ---
Author Organization Healthcare Address [address] [place] [address] Care Team Providers Care Director Of Knowledge Management Name Role Phone Martin Khan MD Primary Care Provider [phone] Encounter Details Date Type Department Care Team (Late st Contact Info) Description 01/03/2022 Orders Only [facility] at [facility] [address] [place] [phone] Susannah Ballard MD [address] [address] Social History Tobacco Use Types [...] External WBC 6.9 3.8 - 10.8 K/uL [facility] External Red Blood Cell (RBC) 4.85 3.80 - 5.20 M/uL [facility] External Hemoglobin 13.6 12.0 - 16.0 G/DL [facility] External Hematocrit 40.8 35.0 - 47.0 % [facility] External MCV 84 80 - 100 fL [facility] External MCH 28 26 - 35 PG [facility] External MCHC 33 32 - 36 G/DL [facility] External RDW 15.1(H) 11.0 - 15.0 % [facility] External Mean Platelet Volume 7.1 6.2 - 10.5 fL [facility] External Platelets 328 130 - 400 K/uL [facility] External Neutrophil# 2.9 1.6 - 8.4 K/uL [facility] External Lymphocyte# 3.0 0.4 - 5.1 K/uL [facility] External Absolute Monocyte (Abs Sutton) 0.7 0.0 - 1.2 K/uL [facility] External Eosinophils# 0.2 0.0 - 0.8 K/uL [facility] External Baso# 0.1 0.0 - 0.3 K/uL [facility] External Neutrophils % 42.0 42.0 - 78.0 % [facility] External Lymphocyte % 42.8 11.0 - 47.0 % [facility] External Monocyte % 10.6 0.0 - 11.0 % [facility] External Eosinophil% 3.5 0.0 - 7.0 % [facility] External Basophil % 1.1 0.0 - 3.0 % [facility] External Nucleated RBC%-Auto 0.0 0.0 - 0.9 % [facility] External Nucleated RBC Absolute 0.00 Not Estab. K/uL [facility] 01/03/2022 8:55 AM EDT 01/03/2022 9:15 AM EDT us Susannah Ballard MD LAB BLOOD ORDERABLES Final Res ult [facility] [place] [address], documented in this encounter Visit Diagnoses Not on filedocumented in this encounter Additional Health Concerns Assessment Noted Time A Body Mass Index follow-up plan has been documented for the patient 12/31/2022 6:20 PM EDT documented as of this encounter Care Teams Director Of Knowledge Management Relationship Specialty Start Date End Date Martin Khan MD [address] [place] [address] [address] [place] [address] PCP - General 09/01/20 documented as of this encounter
--- OUTSIDE RECORDS SUMMARY | 2024-12-06 10:22 | XMS_ITS | Clinical Summary ---
Author Organization Healthcare Address [address] [place] [address] Care Team Providers Care Compounding Scaler Name Role Phone Martin Khan MD Primary Care Provider [phone] Encounters Date Type Department Care Team Description 10/20/2024 [facility] [address] [place] [address] None, None Eye Problem (Sensitive [...] [facility]-HIV Screening 1965 [facility]-Hepatitis C Screening 1965 [facility]-/Child/Adol SDOH Screenings 1965 [facility]- SDOH Screenings 12/24/1981 [facility]-Adult SDOH Screenings 12/24/1981 [facility]-Pap Smear 12/24/1984 [facility]-Cervical Cancer Screening 12/24/1993 [facility]-HPV/Cotest 12/24/1993 CT Colonography 12/24/2008 Colonoscopy 12/24/2008 FIT-DNA 12/24/2008 FIT 12/24/2008 FOBT 12/24/2008 Sigmoidoscopy 12/24/2008 [facility]-Colorectal Cancer Screening 12/24/2008 [facility]-Breast Cancer Screening 12/24/2013 [facility]-Pneumococcal Vaccine: 50+ Years (1 of 1 - PCV) 12/24/2013 [facility]-Zoster Vaccines (1 of 2) 12/24/2013 [id number] Vaccine (6 - 2023- season) 2023 03/14/2021, [...] age to complete this topic Insurance AETNA [facility] MEDICAID Care Teams Compounding Scaler Relationship Specialty Start Date End Date Martin Khan MD [address] [facility] [address] [place] [address] PCP - General 09/01/20
--- OUTSIDE RECORDS SUMMARY | 2024-12-06 10:22 | XMS_ITS | Encounter Summary ---
Author Organization Healthcare Address [address] [place] [address] Care Team Providers Care Senior Dynamics Crm Developer Name Role Phone Martin Khan MD Primary Care Provider [phone] Reason for Visit * Reason Onset Date Comments Eye Problem 10/20/2024 Sensitive to lig ht Encounter Details Date Type Department Care Team (Late st Contact Info) Description 10/20/2024 Telephone [place] [facility] [address] [place] [address] None, None [address] [place], [place] [id number] Eye Problem (Sensitive to light) Social History [...] already followed up with a local continuous improvement director. * Telephone Encounter - Seda Alfonso - 10/20/2024 10:48 AM EDT Clinical Concern/Question Reason for Call: Left eye sensitive to light and cannot open Best contact number: [phone] (home) Optimal time of day to reach caller: ANYTIME Additional comments/information from caller: None Note: Please do not reply to this message. Follow-up communication and further actions as a result of this message need to be communicated with the patient directly, if the patient is not active onMyChart. If the patient is active on MyChart, they will receive notification of the communication/outcome via InDMusichart. documented in this encounter Plan of Treatment Not on file documented as of this encounter Visit Diagnoses Not on filedocumented in this encounter Additional Health Concerns Assessment Noted Time A Body Mass Index follow-up plan has been documented for the patient 12/31/2022 6:20 PM EDT documented as of this encounter Care Teams Senior Dynamics Crm Developer Relationship Specialty Start Date End Date Martin Khan MD [address] [place] [address] [address] [place] [address] PCP - General 09/01/20 documented as of this encounter
[2024-12-06 11:59] LABS: Hematocrit 39.9 % (37.0-47.0); Hemoglobin 13.4 g/dL (12.2-16.2); Immature Granulocytes % 0.4 %; Mean Corpuscular HGB Conc 33.6 g/dL (31.8-35.4); Mean Corpuscular Hemoglobin 30.0 pg (27.0-31.2); Mean Corpuscular Volume 89.3 fl (81-99); Nucleated Red Blood Cells % 0 %; Platelet Count 296 K/mm3 (142-424); Red Blood Count 4.47 M/mm3 (4.20-5.40); Red Cell Distribution Width-SD 43.7 fL; White Blood Count 5.5 K/mm3 (4.8-10.8)
[2024-12-06 12:21] LABS: Albumin Level 4.5 g/dl (3.5-5.0); Chloride 103 mmol/L (98-107); Potassium 5.2 mmoL/L (3.5-5.1); Sodium 137 mmol/L (136-145)
[2024-12-06 12:23] LABS: Anion Gap 11.2 mEq/L (5-15); Bilirubin,Unconjugated 0.5 mg/dL (0.0-1.1); Blood Urea Nitrogen 10 mg/dl (7-17); Carbon Dioxide 28 mmol/L (22.0-30.0); Creatinine,Serum 0.80 mg/dl (0.52-1.04); Estimated Glomerular Filt Rate 73 ml/min (>60); GFR (African American) 89 ML/MIN (>60)
[2024-12-06 12:24] LABS: Alanine Aminotransferase 20 U/L (12-78); Alkaline Phosphatase 70 U/L (38-126); Aspartate Amino Transferase 33 U/L (14-36); Bilirubin,Direct 0.1 mg/dl (0.0-0.4); Bilirubin,Indirect 0.6 mg/dL (0.0-0.9); Bilirubin,Total 0.7 mg/dl (0.2-1.3); Calcium 9.7 mg/dl (8.4-10.2); Cholesterol 140 mg/dl (140-200); Glucose 111 mg/dl (74-100); HDL Cholesterol 83 mg/dl (40-60); Magnesium 2.0 mg/dl (1.6-2.3); Total Protein,Serum 7.1 g/dl (6.3-8.2); Triglycerides 74 mg/dl (30-150)
[2024-12-06 12:40] LABS: Free T4 (Free Thyroxine) 0.85 ng/dl (0.78-2.19)
[2024-12-06 12:55] LABS: Thyroid Stimulating Hormone 1.92 uIU/mL (0.465-4.68)
== END 2024-12-06 23:59 | disposition home or self-care (01) ==
LOC: LAB 10:20
PROVIDERS: PCP Internal Medicine; Visit Provider Nurse Practitioner
DX: E78.5 Hyperlipidemia, unspecified (principal); I10 Essential (primary) hypertension; R74.8 Abnormal levels of other serum enzymes; Z95.0 Presence of cardiac pacemaker
CPT/HCPCS: 36415; 80048; 80061; 80076; 83735; 84439; 84443; 85025

== ENCOUNTER 2024-12-21 14:43 | Outpatient (CLI) | payer OTHER, SELFPAY ==
--- OUTSIDE RECORDS SUMMARY | 2024-12-21 14:50 | XMS_ITS | Encounter Summary ---
Author Organization Healthcare Address [address] [place] [address] Care Team Providers Care Resource Conservation Manager Name Role Phone Martin Khan MD Primary Care Provider [phone] Encounter Details Date Type Department Care Team (Late st Contact Info) Description 01/03/2022 Orders Only [facility] at [facility] [address] [place] [phone] Susannah Ballard MD [address] [address] Social History Tobacco Use Types [...] External WBC 6.9 3.8 - 10.8 K/uL [facility] External Red Blood Cell (RBC) 4.85 3.80 - 5.20 M/uL [facility] External Hemoglobin 13.6 12.0 - 16.0 G/DL [facility] External Hematocrit 40.8 35.0 - 47.0 % [facility] External MCV 84 80 - 100 fL [facility] External MCH 28 26 - 35 PG [facility] External MCHC 33 32 - 36 G/DL [facility] External RDW 15.1(H) 11.0 - 15.0 % [facility] External Mean Platelet Volume 7.1 6.2 - 10.5 fL [facility] External Platelets 328 130 - 400 K/uL [facility] External Neutrophil# 2.9 1.6 - 8.4 K/uL [facility] External Lymphocyte# 3.0 0.4 - 5.1 K/uL [facility] External Absolute Monocyte (Abs Tate) 0.7 0.0 - 1.2 K/uL [facility] External Eosinophils# 0.2 0.0 - 0.8 K/uL [facility] External Baso# 0.1 0.0 - 0.3 K/uL [facility] External Neutrophils % 42.0 42.0 - 78.0 % [facility] External Lymphocyte % 42.8 11.0 - 47.0 % [facility] External Monocyte % 10.6 0.0 - 11.0 % [facility] External Eosinophil% 3.5 0.0 - 7.0 % [facility] External Basophil % 1.1 0.0 - 3.0 % [facility] External Nucleated RBC%-Auto 0.0 0.0 - 0.9 % [facility] External Nucleated RBC Absolute 0.00 Not Estab. K/uL [facility] 01/03/2022 8:55 AM EDT 01/03/2022 9:15 AM EDT us Susannah Ballard MD LAB BLOOD ORDERABLES Final Res ult [facility] [place] [address], documented in this encounter Visit Diagnoses Not on filedocumented in this encounter Additional Health Concerns Assessment Noted Time A Body Mass Index follow-up plan has been documented for the patient 12/31/2022 6:20 PM EDT documented as of this encounter Care Teams Resource Conservation Manager Relationship Specialty Start Date End Date Martin Khan MD [address] [place] [address] [address] [place] [address] PCP - General 09/01/20 documented as of this encounter
--- OUTSIDE RECORDS SUMMARY | 2024-12-21 14:50 | XMS_ITS | Clinical Summary ---
Author Organization Healthcare Address [address] [place] [address] Care Team Providers Care Laser Engraver Name Role Phone Martin Khan MD Primary Care Provider [phone] Encounters Date Type Department Care Team Description 10/20/2024 Telephone [facility] [address] [place] [address] None, None Eye Problem (Sensitive [...] 12/24/2013 [facility]-Zoster Vaccines (1 of 2) 12/24/2013 [id number] Vaccine (6 - 2023- season) 2023 03/14/2021, [...] age to complete this topic Insurance AETNA [facility] MEDICAID Care Teams Laser Engraver Relationship Specialty Start Date End Date Martin Khan MD [address] [facility] [address] [place] [address] PCP - General 09/01/20
--- OUTSIDE RECORDS SUMMARY | 2024-12-21 14:50 | XMS_ITS | Encounter Summary ---
Author Organization Healthcare Address [address] [place] [address] Care Team Providers Care Ic Design Engineer Name Role Phone Martin Khan MD Primary Care Provider [phone] Encounter Details Date Type Department Care Team (Late st Contact Info) Description 01/03/2022 Orders Only [facility] at [facility] [address] [place] [phone] Susannah Ballard MD [address] [phone] Social History Tobacco Use Types Packs/Day Years [...] HDL Cholesterol 63 50 - 242 mg/dL [facility] External Triglycerides 162(H) 0 - 149 mg/dL [facility] Comment: TRIGLYCERIDE RANGES NORMAL: < 150 BORDERLINE HIGH: 150 - 199 HIGH: 200 - 499 VERY HIGH: > OR = 500 External Cholesterol 264(H) 0 - 199 mg/dL [facility] Comment: CHOLESTEROL (TOTAL) RANGES DESIRABLE: < 200 BORDERLINE: 200 - 239 HIGHER RISK: > 239 External LDL Cholesterol 169(H) 0 - 99 mg/dl (calc) [facility] Comment: LDL CHOLESTEROL RANGES OPTIMAL: < 100 NEAR/ABOVE OPTIMAL: 100 - 129 BORDERLINE HIGH: 130 - 159 HIGH: 160 - 189 VERY HIGH: > OR = 190 01/03/2022 8:55 AM EDT 01/03/2022 9:15 AM EDT us Susannah Ballard MD LAB BLOOD ORDERABLES Final Res ult [facility] [address] [place] [address], documented in this encounter Visit Diagnoses Not on filedocumented in this encounter Additional Health Concerns Assessment Noted Time A Body Mass Index follow-up plan has been documented for the patient 12/31/2022 6:20 PM EDT documented as of this encounter Care Teams Ic Design Engineer Relationship Specialty Start Date End Date Martin Khan MD [address] [facility] [address] [place] [address] PCP - General 09/01/20 documented as of this encounter
--- OUTSIDE RECORDS SUMMARY | 2024-12-21 14:50 | XMS_ITS | Encounter Summary ---
Author Organization Healthcare Address [address] [place] [address] Care Team Providers Care Billing And Quality Technician Name Role Phone Martin Khan MD Primary Care Provider [phone] Encounter Details Date Type Department Care Team (Late st Contact Info) Description 01/03/2022 Orders Only [facility] at [facility] [address] [place] [phone] Susannah Ballard MD [address] [address] Social History Tobacco Use Types [...] External Glucose 108(H) 74 - 100 mg/dL [facility] External BUN 8 6 - 20 mg/dL [facility] External Creatinine Blood 0.91 0.50 - 0.95 mg/dL [facility] External BUN/Creat Ratio 9(L) 10 - 20 (calc) [facility] External Sodium 139 136 - 145 mmol/L [facility] External Potassium 4.5 3.4 - 5.0 mmol/L [facility] External Chloride 100 98 - 107 mmol/L [facility] External Carbon Dioxide 28 22 - 31 mmol/L [facility] External Anion Gap (AG) 11 7 - 25 (calc) [facility] External Calcium 9.8 8.6 - 10.2 mg/dL [facility] External Total Protein 7.9 6.4 - 8.3 g/dL [facility] External Albumin 4.4 3.5 - 5.2 g/dL [facility] External Globulin 3.5 1.5 - 4.5 g/dL (calc) [facility] External Albumin/Globulin Ratio 1.3 1.1 - 2.5 (calc) [facility] External Bilirubin Total 0.5 0.1 - 1.2 mg/dL [facility] External Alkaline Phosphatase 73 30 - 121 U/L [facility] External AST (SGOT) 25 0 - 32 U/L [facility] External ALT (SGPT) 17 0 - 33 U/L [facility] External Estimated GFR 73 >=60 [facility] Comment: NOTE New calculation for GFR (CKD-EPI 2020) is formulated without race adjustment factors at the recommendation of the National Kidney Foundation and [place] [employer] of Nephrology. This calculation has not been validated in women. For pediatric patients refer to https://www.kidney.org/professionals/KDOQI/gfr_calculatorPed 01/03/2022 8:55 AM EDT 01/03/2022 9:15 AM EDT us Susannah Ballard MD LAB BLOOD ORDERABLES Final Res ult [facility] [place] [address], documented in this encounter Visit Diagnoses Not on filedocumented in this encounter Additional Health Concerns Assessment Noted Time A Body Mass Index follow-up plan has been documented for the patient 12/31/2022 6:20 PM EDT documented as of this encounter Care Teams Billing And Quality Technician Relationship Specialty Start Date End Date Martin Khan MD [address] [place] [address] PCP - General 09/01/20 documented as of this encounter
--- OUTSIDE RECORDS SUMMARY | 2024-12-21 14:50 | XMS_ITS | Encounter Summary ---
Author Organization Healthcare Address [address] [place] [address] Care Team Providers Care Rubber Mill Tender Name Role Phone Martin Khan MD Primary Care Provider [phone] Reason for Visit * Reason Onset Date Comments Eye Problem 10/20/2024 Sensitive to lig ht Encounter Details Date Type Department Care Team (Late st Contact Info) Description 10/20/2024 [facility]phone [facility] [address] [place] [address] None, None [address] [place], [place] [id number] Eye Problem (Sensitive to light) Social History [...] has already followed up with a local leg assembler. * Telephone Encounter - Seda Alfonso - 10/20/2024 10:48 AM EDT Clinical Concern/Question Reason for Call: Left eye sensitive to light and cannot open Best contact number: [phone] (home) Optimal time of day to reach caller: ANYTIME Additional comments/information from caller: None Note: Please do not reply to this message. Follow-up communication and further actions as a result of this message need to be communicated with the patient directly, if the patient is not active onMyChart. If the patient is active on MyChart, they will receive notification of the communication/outcome via [email or web address]. documented in this encounter Plan of Treatment Not on file documented as of this encounter Visit Diagnoses Not on filedocumented in this encounter Additional Health Concerns Assessment Noted Time A Body Mass Index follow-up plan has been documented for the patient 12/31/2022 6:20 PM EDT documented as of this encounter Care Teams Rubber Mill Tender Relationship Specialty Start Date End Date Martin Khan MD [address] [place] [address] [address] [place] [address] PCP - General 09/01/20 documented as of this encounter
--- NOTE | 2024-12-21 15:15 | CA_ITS ---
APPROVED REPORT EXAM: Comprehensive 2D, Doppler, and color-flow Echocardiogram [employer]S Ministry Director: Jeannie Garcia RVT Ht: 5 ft 5 in Wt: 247lbs BSA: 2.16 BP: 107/57 mmHg Indications: LV FUNCTION,AORTIC STENOSIS,MURMUR 2D Dimensions LA Volume 38.80 mL LA Volume Index 17.88 mL/m2 (M/F) 16-34 M-Mode Dimensions RVDd 2.79 cm (0.9-2.6) LA Diam 4.27 cm (1.9-4.0) LVDd 4.40 cm (3.5-5.7) LVDs 3.29 cm (3.5-5.7) IVSd 0.79 cm (0.6-1.1) PWd 0.82 cm (0.6-1.1) EF (Teich) 50.10% FS 25.20% EDV (Teich) 87.70 mL TAPSE 1.58 (<1.7) ESV (Teich) 43.80 mL LV Diastology E Decel Time 160 (160-240 msec) E/A Ratio 0.8 Aortic Valve EJ Index 0.74 cm2/m2 AoV Peak Karthik. 225.0 (50-130 cm/s) AI PHT 1093.00 ms AO Peak GR. 20.40 mmHg AO Mean GR. 12.80 (<5 mmHg) AO VTI 42.3 (18-25 cm) EJ (VTI) 1.65 (2.5-4.5 cm2) Mitral Valve MV E Max Karthik. 56.0 (40-130 cm/s) MV A Velocity 69.0 (40-130 cm/s) E/A Ratio 0.81 MV PHT 47.0 ms Pulmonary Valve PV Peak Velocity 69.0 (50-150 cm/s) Tricuspid Valve TR P. Velocity 236.00 cm/s RAP Estimate 8.00 mmHg RVSP 30.20 mmHg Left Ventricle The left ventricle is normal size. Left ventricular systolic function is mildly to moderately reduced. There is increased left ventricular wall thickness. The septum is asynchronous. There is moderate hypokinesis of the anterior LV wall. Grade 2 diastolic dysfunction is present. LVEF is 40% Right Ventricle The right ventricle is moderately dilated. The right ventricular systolic function is mildly reduced. Atria The left atrium is mildly dilated. The right atrium is mildly dilated. There is no color Doppler evidence of interatrial shunt. Aortic Valve The aortic valve is moderately thickened. Mild aortic stenosis is present. EJ by continuity equation is 1.6 cm2. Peak velocity is 2.2 m/s. Mean AV gradient is 14 mmHg. Max AV gradient it 19 mmHg. Moderate aortic regurgitation is present. Mitral Valve The mitral valve is mildly thickened. No evidence of mitral valve stenosis. Mild mitral regurgitation is present. Tricuspid Valve The tricuspid valve leaflets are thin and pliable. Mild tricuspid regurgitation. RVSP is 25-30 mmHg. Pulmonic Valve The pulmonary valve is grossly normal in structure. Trace pulmonic valve regurgitation is present. Great Vessels The aortic root is normal in size. IVC is normal in size and collapses >50% with inspiration. Pericardium There is no pericardial effusion. Other Information Study Quality: Fair Conclusion Mild to moderate reduction in LV systolic function (LVEF 40%). Grade 2 diastolic dysfunction. The septum is asynchronous. There is moderate hypokinesis of the anterior LV wall. Moderate RV dilation with mild reduction in RV function. Biatrial dilation. Mild (EJ by continuity equation is 1.6 cm2. Peak velocity is 2.2 m/s. Mean AV gradient is 14 mmHg. Max AV gradient it 19 mmHg). Moderate AI. Mild MR, mild TR. Electronically signed by : Yomaira Pham MD 12/22/2024 00:14:40
== END 2024-12-21 23:59 | disposition home or self-care (01) ==
LOC: RT 14:44
PROVIDERS: PCP Internal Medicine; Visit Provider Nurse Practitioner
DX: I08.3 Combined rheumatic disorders of mitral, aortic and tricuspid valves (principal); I11.9 Hypertensive heart disease without heart failure; E78.5 Hyperlipidemia, unspecified; R74.8 Abnormal levels of other serum enzymes; Z95.0 Presence of cardiac pacemaker; R93.1 Abnormal findings on diagnostic imaging of heart and coronary circulation
CPT/HCPCS: 93306

== ENCOUNTER 2024-12-22 15:04 | Outpatient (CLI) | payer OTHER, SELFPAY ==
--- OUTSIDE RECORDS SUMMARY | 2024-12-22 15:07 | XMS_ITS | Encounter Summary ---
Author Organization Healthcare Address [address] [place] [address] Care Team Providers Care Theatrical Trouper Name Role Phone Martin Khan MD Primary Care Provider [phone] Encounter Details Date Type Department Care Team (Late st Contact Info) Description 01/03/2022 Orders Only [facility] at [facility] [address] [place] [phone] Susannah Ballard MD [address] [address] Social History Tobacco Use Types [...] External WBC 6.9 3.8 - 10.8 K/uL [facility] External Red Blood Cell (RBC) 4.85 3.80 - 5.20 M/uL [facility] External Hemoglobin 13.6 12.0 - 16.0 G/DL [facility] External Hematocrit 40.8 35.0 - 47.0 % [facility] External MCV 84 80 - 100 fL [facility] External MCH 28 26 - 35 PG [facility] External MCHC 33 32 - 36 G/DL [facility] External RDW 15.1(H) 11.0 - 15.0 % [facility] External Mean Platelet Volume 7.1 6.2 - 10.5 fL [facility] External Platelets 328 130 - 400 K/uL [facility] External Neutrophil# 2.9 1.6 - 8.4 K/uL [facility] External Lymphocyte# 3.0 0.4 - 5.1 K/uL [facility] External Absolute Monocyte (Abs [place]) 0.7 0.0 - 1.2 K/uL [facility] External Eosinophils# 0.2 0.0 - 0.8 K/uL [facility] External Baso# 0.1 0.0 - 0.3 K/uL [facility] External Neutrophils % 42.0 42.0 - 78.0 % [facility] External Lymphocyte % 42.8 11.0 - 47.0 % [facility] External Monocyte % 10.6 0.0 - 11.0 % [facility] External Eosinophil% 3.5 0.0 - 7.0 % [facility] External Basophil % 1.1 0.0 - 3.0 % [facility] External Nucleated RBC%-Auto 0.0 0.0 - 0.9 % [facility] External Nucleated RBC Absolute 0.00 Not Estab. K/uL [facility] 01/03/2022 8:55 AM EDT 01/03/2022 9:15 AM EDT us Susannah Ballard MD LAB BLOOD ORDERABLES Final Res ult [facility] [place] [address], documented in this encounter Visit Diagnoses Not on filedocumented in this encounter Additional Health Concerns Assessment Noted Time A Body Mass Index follow-up plan has been documented for the patient 12/31/2022 6:20 PM EDT documented as of this encounter Care Teams Theatrical Trouper Relationship Specialty Start Date End Date Martin Khan MD [address] [place] [address] [address] [place] [address] PCP - General 09/01/20 documented as of this encounter
--- OUTSIDE RECORDS SUMMARY | 2024-12-22 15:07 | XMS_ITS | Encounter Summary ---
Author Organization Healthcare Address [address] [place] [address] Care Team Providers Care Roller Presser Operator Name Role Phone Martin Khan MD Primary Care Provider [phone] Encounter Details Date Type Department Care Team (Late st Contact Info) Description 01/03/2022 Orders Only [facility] [address] [place] [phone] Susannah Ballard MD [address] [address] Social History Tobacco Use Types [...] External Glucose 108(H) 74 - 100 mg/dL [facility] External BUN 8 6 - 20 mg/dL [facility] External Creatinine Blood 0.91 0.50 - 0.95 mg/dL [facility] External BUN/Creat Ratio 9(L) 10 - 20 (calc) [facility] External Sodium 139 136 - 145 mmol/L [facility] External Potassium 4.5 3.4 - 5.0 mmol/L [facility] External Chloride 100 98 - 107 mmol/L [facility] External Carbon Dioxide 28 22 - 31 mmol/L [facility] External Anion Gap (AG) 11 7 - 25 (calc) [facility] External Calcium 9.8 8.6 - 10.2 mg/dL [facility] External Total Protein 7.9 6.4 - 8.3 g/dL [facility] External Albumin 4.4 3.5 - 5.2 g/dL [facility] External Globulin 3.5 1.5 - 4.5 g/dL (calc) [facility] External Albumin/Globulin Ratio 1.3 1.1 - 2.5 (calc) [facility] External Bilirubin Total 0.5 0.1 - 1.2 mg/dL [facility] External Alkaline Phosphatase 73 30 - 121 U/L [facility] External AST (SGOT) 25 0 - 32 U/L [facility] External ALT (SGPT) 17 0 - 33 U/L [facility] External Estimated GFR 73 >=60 [facility] Comment: NOTE New calculation for GFR (CKD-EPI 2020) is formulated without race adjustment factors at the recommendation of the National Kidney Foundation and [place] Society of Nephrology. This calculation has not been validated in women. For pediatric patients refer to https://www.kidney.org/professionals/KDOQI/gfr_calculatorPed 01/03/2022 8:55 AM EDT 01/03/2022 9:15 AM EDT us Susannah Ballard MD LAB BLOOD ORDERABLES Final Res ult [facility] [place] [address], documented in this encounter Visit Diagnoses Not on filedocumented in this encounter Additional Health Concerns Assessment Noted Time A Body Mass Index follow-up plan has been documented for the patient 12/31/2022 6:20 PM EDT documented as of this encounter Care Teams Roller Presser Operator Relationship Specialty Start Date End Date Martin Khan MD [address] [place] [address] PCP - General 09/01/20 documented as of this encounter
--- OUTSIDE RECORDS SUMMARY | 2024-12-22 15:07 | XMS_ITS | Clinical Summary ---
Author Organization Healthcare Address [address] [place] [address] Care Team Providers Care Toll Transmission Worker Name Role Phone Martin Khan MD Primary Care Provider [phone] Encounters Date Type Department Care Team Description 10/20/2024 Telephone [facility] [address] [place] [address] None, None Eye Problem (Sensitive [...] 12/24/2013 UKY-Zoster Vaccines (1 of 2) 12/24/2013 [id number] Vaccine (6 - 2023- season) 2023 03/14/2021, [...] age to complete this topic Insurance [employer] [facility] MEDICAID Care Teams Toll Transmission Worker Relationship Specialty Start Date End Date Martin Khan MD [address] [facility] [address] [place] [address] PCP - General 09/01/20
--- OUTSIDE RECORDS SUMMARY | 2024-12-22 15:07 | XMS_ITS | Encounter Summary ---
Author Organization Healthcare Address [address] [place] [address] Care Team Providers Care Public Works Director Name Role Phone Martin Khan MD Primary Care Provider [phone] Encounter Details Date Type Department Care Team (Late st Contact Info) Description 01/03/2022 Orders Only [facility] [address] [place] [phone] Susannah Ballard MD [address] [phone] Social History Tobacco Use Types Packs/Day Years [...] HDL Cholesterol 63 50 - 242 mg/dL [facility] External Triglycerides 162(H) 0 - 149 mg/dL [facility] Comment: TRIGLYCERIDE RANGES NORMAL: < 150 BORDERLINE HIGH: 150 - 199 HIGH: 200 - 499 VERY HIGH: > OR = 500 External Cholesterol 264(H) 0 - 199 mg/dL [facility] Comment: CHOLESTEROL (TOTAL) RANGES DESIRABLE: < 200 BORDERLINE: 200 - 239 HIGHER RISK: > 239 External LDL Cholesterol 169(H) 0 - 99 mg/dl (calc) [facility] Comment: LDL CHOLESTEROL RANGES OPTIMAL: < 100 NEAR/ABOVE OPTIMAL: 100 - 129 BORDERLINE HIGH: 130 - 159 HIGH: 160 - 189 VERY HIGH: > OR = 190 01/03/2022 8:55 AM EDT 01/03/2022 9:15 AM EDT us Susannah Ballard MD LAB BLOOD ORDERABLES Final Res ult [facility] [address] [place] [address], documented in this encounter Visit Diagnoses Not on filedocumented in this encounter Additional Health Concerns Assessment Noted Time A Body Mass Index follow-up plan has been documented for the patient 12/31/2022 6:20 PM EDT documented as of this encounter Care Teams Public Works Director Relationship Specialty Start Date End Date Martin Khan MD [address] [facility] [address] [place] [address] PCP - General 09/01/20 documented as of this encounter
--- OUTSIDE RECORDS SUMMARY | 2024-12-22 15:07 | XMS_ITS | Encounter Summary ---
Author Organization Healthcare Address [address] [place] [address] Care Team Providers Care Supervisor Corduroy Cutting Name Role Phone Martin Khan MD Primary Care Provider [phone] Reason for Visit * Reason Onset Date Comments Eye Problem 10/20/2024 Sensitive to lig ht Encounter Details Date Type Department Care Team (Late st Contact Info) Description 10/20/2024 [facility]phone [facility] [address] [place] [address] None, None [address] [place], [place] [id number] Eye Problem (Sensitive to light) Social History [...] has already followed up with a local drying supervisor. * Telephone Encounter - Seda Alfonso - 10/20/2024 10:48 AM EDT Clinical Concern/Question Reason for Call: Left eye sensitive to light and cannot open Best contact number: [phone] (home) Optimal time of day to reach caller: ANYTIME Additional comments/information from caller: None Note: Please do not reply to this message. Follow-up communication and further actions as a result of this message need to be communicated with the patient directly, if the patient is not active onMyChart. If the patient is active on MyChart, they will receive notification of the communication/outcome via [employer]. documented in this encounter Plan of Treatment Not on file documented as of this encounter Visit Diagnoses Not on filedocumented in this encounter Additional Health Concerns Assessment Noted Time A Body Mass Index follow-up plan has been documented for the patient 12/31/2022 6:20 PM EDT documented as of this encounter Care Teams Supervisor Corduroy Cutting Relationship Specialty Start Date End Date Martin Khan MD [address] [place] [address] [address] [place] [address] PCP - General 09/01/20 documented as of this encounter
[2024-12-22 15:54] LABS: PHA INR Fingerstick 2.5 (0.9-1.1)
== END 2024-12-22 15:55 ==
LOC: ACC 15:05
PROVIDERS: PCP Internal Medicine; Visit Provider Internal Medicine
DX: Z79.01 Long term (current) use of anticoagulants (principal)
CPT/HCPCS: 85610; 99211; G0463

== ENCOUNTER 2025-01-05 08:00 | Day surgery (SDC) | payer OTHER, SELFPAY ==
[2025-01-05] VITALS (11 sets, daily range): BP systolic 124–154; BP diastolic 62–78; PULSE 70–76; RESP 16–18; O2SAT 96–100; BMI 41.5
--- NOTE | 2025-01-05 07:08 | IR_ITS ---
APPROVED REPORT Patient Location: Outpatient PROCEDURES Left heart catheterization Left ventriculogram Selective coronary angiogram INDICATION New onset cardiomyopathy, Systolic congestive heart failure Informed consent was obtained prior to the procedure. COMPLICATIONS NONE Estimated Blood Loss: LESS THAN 10 ML TECHNIQUE One percent lidocaine used to anesthetize the right anterior aspect of the wrist. The right radial artery was accessed via the Seldinger technique. A 6 Maltese sheath was placed in the right radial artery. 2.5 mg of Verapamil, 800 mcg of nitroglycerin, 1mg Lidocaine and 5000 U Heparin were given through the arterial sheath. The JL3 catheter was also used to perform left heart catheterization, left ventriculogram and selective coronary angiogram. At the end of the procedure the sheath was removed good hemostasis was achieved using Traclet band, patient was transferred to the postop holding area in stable condition. ANGIOGRAPHIC RESULTS The left main artery Normal The left anterior descending artery Normal The circumflex artery Normal The right coronary artery Dominant normal The FREEMAN ventriculogram reveals 40% The left ventricular end-diastolic pressure 20 mmHg IMPRESSION Normal coronary arteries Reduced ejection fraction Elevated LVEDP PLAN 1. Medical management Electronically signed by : Jese Bansal MD 01/05/2025 11:09:05
[2025-01-05 08:41] LABS: Hematocrit 38.3 % (37.0-47.0); Hemoglobin 12.9 g/dL (12.2-16.2); Immature Granulocytes % 0.4 %; Mean Corpuscular HGB Conc 33.7 g/dL (31.8-35.4); Mean Corpuscular Hemoglobin 30.1 pg (27.0-31.2); Mean Corpuscular Volume 89.3 fl (81-99); Nucleated Red Blood Cells % 0 %; Platelet Count 270 K/mm3 (142-424); Red Blood Count 4.29 M/mm3 (4.20-5.40); Red Cell Distribution Width-SD 43.6 fL; White Blood Count 5.5 K/mm3 (4.8-10.8)
[2025-01-05 08:48] LABS: Anion Gap 10.1 mEq/L (5-15); Blood Urea Nitrogen 9 mg/dl (7-17); Calcium 9.3 mg/dl (8.4-10.2); Carbon Dioxide 27 mmol/L (22.0-30.0); Chloride 103 mmol/L (98-107); Creatinine Clearance Estimated 53 mL/min (50-200); Creatinine,Serum 0.90 mg/dl (0.52-1.04); Estimated Glomerular Filt Rate 64 ml/min (>60); GFR (African American) 77 ML/MIN (>60); Glucose 119 mg/dl (74-100); Potassium 4.1 mmoL/L (3.5-5.1); Sodium 136 mmol/L (136-145)
[2025-01-05 09:07] LABS: INR 2.82 (0.9-1.1); Prothrombin Time 29.0 seconds (10.1-12.5)
[2025-01-05] MEDS: 0.9 % SODIUM CHLORIDE 500 ML 25 ML IV (10:43)
[2025-01-05] MEDS: NITROGLYCERIN 800MCG/8ML SYR (CATH LAB) 800 MCG IA (10:43)
[2025-01-05] MEDS: LIDOCAINE 1% 10ML MDV 10 ML IJ (10:43)
[2025-01-05] MEDS: HEPARIN 1,000 UNITS/500ML NS (CATH LAB) 3000 UNIT IV (10:43)
[2025-01-05] MEDS: HEPARIN 1,000 UNITS/ML 10ML VIAL (CATH LAB) 5000 UNIT IV (10:43)
[2025-01-05] MEDS: VERAPAMIL 2.5MG/ML 2ML VIAL 2.5 MG IV (10:45)
[2025-01-05] MEDS: MIDAZOLAM HCL 1MG/ML 5ML VIAL 1 MG IV (11:04)
[2025-01-05] MEDS: FENTANYL 100MCG/2ML VIAL 50 MCG IV (11:04)
[2025-01-05] MEDS: IOPAMIDOL-370 (76%);100ML BOTTLE 50 ML IV (11:30)
== END 2025-01-05 13:57 | disposition home or self-care (01) ==
PROVIDERS: PCP Internal Medicine; Visit Provider Internal Medicine
PROC: 4A023N7 Measurement of Cardiac Sampling and Pressure, Left Heart, Percutaneous Approach (ICD-10-PCS; CPT 93452; principal; 2025-01-05 09:45)
DX: I42.8 Other cardiomyopathies (principal); I50.20 Unspecified systolic (congestive) heart failure; I11.0 Hypertensive heart disease with heart failure; R93.1 Abnormal findings on diagnostic imaging of heart and coronary circulation; E78.49 Other hyperlipidemia; R74.8 Abnormal levels of other serum enzymes; I48.91 Unspecified atrial fibrillation; E66.01 Morbid (severe) obesity due to excess calories; Z68.41 Body mass index [BMI] 40.0-44.9, adult; D68.59 Other primary thrombophilia; K76.0 Fatty (change of) liver, not elsewhere classified; Z86.711 Personal history of pulmonary embolism; Z95.0 Presence of cardiac pacemaker; Z95.5 Presence of coronary angioplasty implant and graft; Z79.01 Long term (current) use of anticoagulants; Z79.899 Other long term (current) drug therapy; Z88.1 Allergy status to other antibiotic agents; Z88.5 Allergy status to narcotic agent; Z88.0 Allergy status to penicillin; Z88.8 Allergy status to other drugs, medicaments and biological substances
CPT/HCPCS: 80048; 85025; 85610; 93458; 99152; C1725; C1769; J1200; J1644; J3010; J7040; Q9967

== ENCOUNTER 2025-03-23 13:53 | Outpatient (CLI) | payer OTHER, SELFPAY ==
--- OUTSIDE RECORDS SUMMARY | 2025-03-23 13:55 | XMS_ITS | Encounter Summary ---
Author Organization Healthcare Address [address] [place] [address] Care Team Providers Care Process Worker Name Role Phone Martin Khan MD Primary Care Provider [phone] Encounter Details Date Type Department Care Team (Late st Contact Info) Description 01/03/2022 Orders Only [facility] at [facility] [address] [place] [phone] Susannah Ballard MD [address] [address] Social History Tobacco Use Types [...] External Glucose 108(H) 74 - 100 mg/dL [facility] External BUN 8 6 - 20 mg/dL [facility] External Creatinine Blood 0.91 0.50 - 0.95 mg/dL [facility] External BUN/Creat Ratio 9(L) 10 - 20 (calc) [facility] External Sodium 139 136 - 145 mmol/L [facility] External Potassium 4.5 3.4 - 5.0 mmol/L [facility] External Chloride 100 98 - 107 mmol/L [facility] External Carbon Dioxide 28 22 - 31 mmol/L [facility] External Anion Gap (AG) 11 7 - 25 (calc) [facility] External Calcium 9.8 8.6 - 10.2 mg/dL [facility] External Total Protein 7.9 6.4 - 8.3 g/dL [facility] External Albumin 4.4 3.5 - 5.2 g/dL [facility] External Globulin 3.5 1.5 - 4.5 g/dL (calc) [facility] External Albumin/Globulin Ratio 1.3 1.1 - 2.5 (calc) [facility] External Bilirubin Total 0.5 0.1 - 1.2 mg/dL [facility] External Alkaline Phosphatase 73 30 - 121 U/L [facility] External AST (SGOT) 25 0 - 32 U/L [facility] External ALT (SGPT) 17 0 - 33 U/L [facility] External Estimated GFR 73 >=60 [facility] Comment: NOTE New calculation for GFR (CKD-EPI 2020) is formulated without race adjustment factors at the recommendation of the National Kidney Foundation and [place] Society of Nephrology. This calculation has not been validated in women. For pediatric patients refer to https://www.kidney.org/professionals/KDOQI/gfr_calculatorPed 01/03/2022 8:55 AM EDT 01/03/2022 9:15 AM EDT us Susannah Ballard MD LAB BLOOD ORDERABLES Final Res ult [facility] [place] [address], documented in this encounter Visit Diagnoses Not on filedocumented in this encounter Additional Health Concerns Assessment Noted Time A Body Mass Index follow-up plan has been documented for the patient 12/31/2022 6:20 PM EDT documented as of this encounter Care Teams Process Worker Relationship Specialty Start Date End Date Martin Khan MD [address] [place] [address] PCP - General 09/01/20 documented as of this encounter
--- OUTSIDE RECORDS SUMMARY | 2025-03-23 13:55 | XMS_ITS | Encounter Summary ---
Author Organization Healthcare Address [address] [place] [address] Care Team Providers Care Outreach Manager Name Role Phone Martin Khan MD Primary Care Provider [phone] Encounter Details Date Type Department Care Team (Late st Contact Info) Description 01/03/2022 Orders Only [facility] [address] [place] [phone] Susannah Ballard MD [address] [phone] Social History Tobacco Use Types Packs/Day Years [...] HDL Cholesterol 63 50 - 242 mg/dL [facility] External Triglycerides 162(H) 0 - 149 mg/dL [facility] Comment: TRIGLYCERIDE RANGES NORMAL: < 150 BORDERLINE HIGH: 150 - 199 HIGH: 200 - 499 VERY HIGH: > OR = 500 External Cholesterol 264(H) 0 - 199 mg/dL [facility] Comment: CHOLESTEROL (TOTAL) RANGES DESIRABLE: < 200 BORDERLINE: 200 - 239 HIGHER RISK: > 239 External LDL Cholesterol 169(H) 0 - 99 mg/dl (calc) [facility] Comment: LDL CHOLESTEROL RANGES OPTIMAL: < 100 NEAR/ABOVE OPTIMAL: 100 - 129 BORDERLINE HIGH: 130 - 159 HIGH: 160 - 189 VERY HIGH: > OR = 190 01/03/2022 8:55 AM EDT 01/03/2022 9:15 AM EDT us Susannah Ballard MD LAB BLOOD ORDERABLES Final Res ult [facility] [address] [place] [address], documented in this encounter Visit Diagnoses Not on filedocumented in this encounter Additional Health Concerns Assessment Noted Time A Body Mass Index follow-up plan has been documented for the patient 12/31/2022 6:20 PM EDT documented as of this encounter Care Teams Outreach Manager Relationship Specialty Start Date End Date Martin Khan MD [address] [facility] [address] [place] [address] PCP - General 09/01/20 documented as of this encounter
--- OUTSIDE RECORDS SUMMARY | 2025-03-23 13:56 | XMS_ITS | Data Portability ---
Author Organization Formerly [facility], [facility] Address [address] [place] [address] Care Team Providers Care [employer] Assembler Name Role Phone JEAN CRUZ Hematology/Oncology [phone] STEPHANIE PEÑA Primary Care Provider Assessment Encounter [...] of cardiovascular disease was calculated using the [place] calculator, to be just over 8%, too [...] be set up for a CT at [facility] to evaluate for diverticulitis. Her total cholesterol and LDL are somewhat high; her 10 year risk of cardiovascular disease was calculated, using the [place] calculator, to be 6.6%, not high enough [...] By Organization Details Last Modified Time 01/11/2019 [id number] body mass index: care instructions Not available 01/17/2019 19:01:07 Body Mass Index: Care Instructions-LC Not available 01/17/2019 19:01:07 learning about healthy weight Not available 01/17/2019 19:01:07 01/10/2021 [id number] Body Mass Index: Care Instructions-LC Not available 01/14/2021 09:09:46 01/03/2022 [id number] Body Mass Index: Care Instructions-LC Not available 01/05/2022 20:02:41 Reason for Referral None Reported. Results Created Date Observation Date Name Description Value Unit Range Abnormal Flag Note LastModifiedBy Organization Detail LastModifiedTime 01/12/2001/11/2019 CBC w/ auto diff white blood cells 5.9 K/uL 3.8-10 .8 normal Not Available [facility] [address] [place], [address], 01/11/2019 09:02:43 01/12/2001/11/2019 CBC w/ auto diff red blood cells 4.35 M/uL 3.80-5 .20 normal Not Available [facility] [address] [place], [address], 01/11/2019 09:02:43 01/12/20 19 01/11/2019 CBC w/ auto diff hemoglobin 12.7 g/dL 12.0-1 6.0 normal Not Available [facility] [address] [place] [address], [address], 01/11/2019 09:02:43 01/12/2001/11/2019 CBC w/ auto diff hematocrit 37.6 % 35.0-4 7.0 normal Not Available [facility] [address] [place] [address], [address], 01/11/2019 09:02:43 01/12/2001/11/2019 CBC w/ auto diff MCV 87 fL 80-100 normal Not Available [facility] [address] [place] [address], [address], 01/11/2019 09:02:43 01/12/2001/11/2019 CBC w/ auto diff MCH 29 pg 26-35 normal Not Available [facility] [address] [place] [address], [address], 01/11/2019 09:02:43 01/12/2001/11/2019 CBC w/ auto diff MCHC 34 g/dL 32-36 normal Not Available [facility] [address] [place] [address], [address], 01/11/2019 09:02:43 01/12/2001/11/2019 CBC w/ auto diff RDW 14.5 % 11.0-1 5.0 normal Not Available [facility] [address] [place] [address], [address], 01/11/2019 09:02:43 01/12/2001/11/2019 CBC w/ auto diff MPV 7.3 fL 6.2-10 .5 normal Not Available [facility] [address] [place] [address], [address], 01/11/2019 09:02:43 01/12/2001/11/2019 CBC w/ auto diff platelet count 250 K/uL 130-40 0 normal Not Available [facility] [address] [place] [address], [address], 01/11/2019 09:02:43 01/12/2001/11/2019 CBC w/ auto diff neutrophil,a bsolute 2.4 K/uL 1.6-8. 4 normal Not Available [facility] [address] [place] [address], [address], 01/11/2019 09:02:43 01/12/2001/11/2019 CBC w/ auto diff lymphocyte,a bsolute 2.8 K/uL 0.4-5. 1 normal Not Available [facility] [address] [place] [address], [address], 01/11/2019 09:02:43 01/12/2001/11/2019 CBC w/ auto diff monocyte,abs olute 0.5 K/uL 0.0-1. 2 normal Not Available [facility] [address] [place] [address], [address], 01/11/2019 09:02:43 01/12/2001/11/2019 CBC w/ auto diff eosinophil,a bsolute 0.2 K/uL 0.0-0. 8 normal Not Available [facility] [address] [place] [address], [address], 01/11/2019 09:02:43 01/12/2001/11/2019 CBC w/ auto diff basophil,abs olute 0.1 K/uL 0.0-0. 3 normal Not Available [facility] [address] [place] [address], [address], 01/11/2019 09:02:43 01/12/2001/11/2019 CBC w/ auto diff % neutrophils 40.6 % 42.0-7 8.0 low Not Available [facility] [address] [place] [address], [address], 01/11/2019 09:02:43 01/12/20 19 01/11/2019 CBC w/ auto diff % lymphocytes 46.9 % 11.0-4 7.0 normal Not Available [facility] [address] [place], [address], 01/11/2019 09:02:43 01/12/2001/11/2019 CBC w/ auto diff % monocytes 8.2 % 0.0-11 .0 normal Not Available [facility] [address] [place] [address], [address], 01/11/2019 09:02:43 01/12/2001/11/2019 CBC w/ auto diff % eosinophils 3.4 % 0.0-7. 0 normal Not Available [facility] [address] [place] [address], [address], 01/11/2019 09:02:43 01/12/2001/11/2019 CBC w/ auto diff % basophils 0.9 % 0.0-3. 0 normal Not Available [facility] [address] [place] [address], [address], 01/11/2019 09:02:43 01/12/2001/11/2019 CBC w/ auto diff nucleated red cells 0.1 % 0.0-0. 9 normal Not Available [facility] [address] [place] [address], [address], 01/11/2019 09:02:43 01/12/2001/11/2019 CBC w/ auto diff nucleated RBCs, absolute 0.01 K/uL not estab. normal Not Available [facility] [address] [place] [address], [address], 01/11/2019 09:02:43 01/12/2001/11/2019 CMP, serum or plasm a glucose 108 mg/dL 74-100 high Not Available [facility] [address] [place], [address], 01/11/2019 09:17:19 01/12/2001/11/2019 CMP, serum or plasm a blood urea nitrogen 10 mg/dL 6-20 normal Not Available [facility] [address] [place] [address], [address], 01/11/2019 09:17:19 01/12/2001/11/2019 CMP, serum or plasm a creatinine 0.92 mg/dL 0.50-0 .95 normal Not Available [facility] [address] [place] [address], [address], 01/11/2019 09:17:19 01/12/2001/11/2019 CMP, serum or plasm a BUN/creatini ne ratio 11 (calc ) 10-20 normal Not Available [facility] [address] [place] [address], [address], 01/11/2019 09:17:19 01/12/2001/11/2019 CMP, serum or plasm a sodium 139 mmol/ L 136-14 5 normal Not Available [facility] [address] [place] [address], [address], 01/11/2019 09:17:19 01/12/2001/11/2019 CMP, serum or plasm a potassium 4.2 mmol/ L 3.4-5. 0 normal Not Available [facility] [address] [place] [address], [address], 01/11/2019 09:17:19 01/12/2001/11/2019 CMP, serum or plasm a chloride 101 mmol/ L 98-107 normal Not Available [facility] [address] [place] [address], [address], 01/11/2019 09:17:19 01/12/2001/11/2019 CMP, serum or plasm a carbon dioxide 24 mmol/ L 20-32 normal Not Available [facility] [address] [place] [address], [address], 01/11/2019 09:17:19 01/12/2001/11/2019 CMP, serum or plasm a anion gap 14 (calc ) 7-25 normal Not Available [facility] [address] [place] [address], [address], 01/11/2019 09:17:19 01/12/2001/11/2019 CMP, serum or plasm a calcium 9.0 mg/dL 8.6-10 .2 normal Not Available [facility] [address] [place] [address], [address], 01/11/2019 09:17:19 01/12/2001/11/2019 CMP, serum or plasm a total protein 6.8 g/dL 6.4-8. 3 normal Not Available [facility] [address] [place] [address], [address], 01/11/2019 09:17:19 01/12/2001/11/2019 CMP, serum or plasm a albumin 3.9 g/dL 3.5-5. 2 normal Not Available [facility] [address] [place] [address], [address], 01/11/2019 09:17:19 01/12/2001/11/2019 CMP, serum or plasm a globulin 2.9 g/dL_ (calc ) 1.5-4. 5 normal Not Available [facility] [address] [place] [address], [address], 01/11/2019 09:17:19 01/12/2001/11/2019 CMP, serum or plasm a albumin/glob ulin ratio 1.3 (calc ) 1.1-2. 5 normal Not Available [facility] [address] [place] [address], [address], 01/11/2019 09:17:19 01/12/2001/11/2019 CMP, serum or plasm a bilirubin, total 0.4 mg/dL 0.1-1. 2 normal Not Available [facility] [address] [place] [address], [address], 01/11/2019 09:17:19 01/12/2001/11/2019 CMP, serum or plasm a alkaline phosphatase 55 U/L 35-105 normal Not Available [facility] [address] [place], [address], 01/11/2019 09:17:19 01/12/2001/11/2019 CMP, serum or plasm a AST 16 U/L 0-32 normal Not Available [facility] [address] [place] [address], [address], 01/11/2019 09:17:19 01/12/2001/11/2019 CMP, serum or plasm a ALT 12 U/L 0-33 normal Not Available [facility] [address] [place] [address], [address], 01/11/2019 09:17:19 01/12/2001/11/2019 CMP, serum or plasm a GFR 81 >= 60 normal Not Available [facility] [address] [place], [address], 01/11/2019 09:17:19 01/12/2001/11/2019 CMP, serum or plasm [...] month s or longe r. Not Available [facility] [address] [place], [address], 01/11/2019 09:17:19 01/12/2001/12/2020 CBC w/ auto diff white blood cells 5.1 K/uL 3.8-10 .8 normal Not Available [facility] [address] [place] [address], [address], 01/12/2020 09:07:06 01/12/20 20 01/12/2020 CBC w/ auto diff red blood cells 4.59 M/uL 3.80-5 .20 normal Not Available [facility] [address] [place] [address], [address], 01/12/2020 09:07:06 01/12/20 20 01/12/2020 CBC w/ auto diff hemoglobin 13.3 g/dL 12.0-1 6.0 normal Not Available [facility] [address] [place] [address], [address], 01/12/2020 09:07:06 01/12/20 20 01/12/2020 CBC w/ auto diff hematocrit 39.6 % 35.0-4 7.0 normal Not Available [facility] [address] [place] [address], [address], 01/12/2020 09:07:06 01/12/2001/12/2020 CBC w/ auto diff MCV 86 fL 80-100 normal Not Available [facility] [address] [place] [address], [address], 01/12/2020 09:07:06 01/12/2001/12/2020 CBC w/ auto diff MCH 29 pg 26-35 normal Not Available [facility] [address] [place] [address], [address], 01/12/2020 09:07:06 01/12/2001/12/2020 CBC w/ auto diff MCHC 34 g/dL 32-36 normal Not Available [facility] [address] [place] [address], [address], 01/12/2020 09:07:06 01/12/2001/12/2020 CBC w/ auto diff RDW 14.5 % 11.0-1 5.0 normal Not Available [facility] [address] [place] [address], [address], 01/12/2020 09:07:06 01/12/20 20 01/12/2020 CBC w/ auto diff MPV 7.5 fL 6.2-10 .5 normal Not Available [facility] [address] [place] [address], [address], 01/12/2020 09:07:06 01/12/20 20 01/12/2020 CBC w/ auto diff platelet count 268 K/uL 130-40 0 normal Not Available [facility] [address] [place] [address], [address], 01/12/2020 09:07:06 01/12/20 20 01/12/2020 CBC w/ auto diff neutrophil,a bsolute 2.3 K/uL 1.6-8. 4 normal Not Available [facility] [address] [place] [address], [address], 01/12/2020 09:07:06 01/12/20 20 01/12/2020 CBC w/ auto diff lymphocyte,a bsolute 2.1 K/uL 0.4-5. 1 normal Not Available [facility] [address] [place] [address], [address], 01/12/2020 09:07:06 01/12/20 20 01/12/2020 CBC w/ auto diff monocyte,abs olute 0.4 K/uL 0.0-1. 2 normal Not Available [facility] [address] [place] [address], [address], 01/12/2020 09:07:06 01/12/20 20 01/12/2020 CBC w/ auto diff eosinophil,a bsolute 0.2 K/uL 0.0-0. 8 normal Not Available [facility] [address] [place] [address], [address], 01/12/2020 09:07:06 01/12/2001/12/2020 CBC w/ auto diff basophil,abs olute 0.1 K/uL 0.0-0. 3 normal Not Available [facility] [address] [place] [address], [address], 01/12/2020 09:07:06 01/12/2001/12/2020 CBC w/ auto diff % neutrophils 44.0 % 42.0-7 8.0 normal Not Available [facility] [address] [place] [address], [address], 01/12/2020 09:07:06 01/12/2001/12/2020 CBC w/ auto diff % lymphocytes 41.2 % 11.0-4 7.0 normal Not Available [facility] [address] [place] [address], [address], 01/12/2020 09:07:06 01/12/2001/12/2020 CBC w/ auto diff % monocytes 8.1 % 0.0-11 .0 normal Not Available [facility] [address] [place] [address], [address], 01/12/2020 09:07:06 01/12/2001/12/2020 CBC w/ auto diff % eosinophils 4.3 % 0.0-7. 0 normal Not Available [facility] [address] [place] [address], [address], 01/12/2020 09:07:06 01/12/2001/12/2020 CBC w/ auto diff % basophils 2.4 % 0.0-3. 0 normal Not Available [facility] [address] [place] [address], [address], 01/12/2020 09:07:06 01/12/2001/12/2020 CBC w/ auto diff nucleated red cells 0.0 % 0.0-0. 9 normal Not Available [facility] [address] [place] [address], [address], 01/12/2020 09:07:06 01/12/2001/12/2020 CBC w/ auto diff nucleated RBCs, absolute 0.00 K/uL not estab. normal Not Available [facility] [address] [place] [address], [address], 01/12/2020 09:07:06 01/12/20 20 01/12/2020 CMP, serum or plasm a glucose 105 mg/dL 74-100 high Not Available [facility] [address] [place] [address], [address], 01/12/2020 09:32:21 01/12/20 20 01/12/2020 CMP, serum or plasm a blood urea nitrogen 8 mg/dL 6-20 normal Not Available [facility] [address] [place] [address], [address], 01/12/2020 09:32:21 01/12/20 20 01/12/2020 CMP, serum or plasm a creatinine 0.86 mg/dL 0.50-0 .95 normal Not Available [facility] [address] [place] [address], [address], 01/12/2020 09:32:21 01/12/2001/12/2020 CMP, serum or plasm a BUN/creatini ne ratio 9 (calc ) 10-20 low Not Available [facility] [address] [place] [address], [address], 01/12/2020 09:32:21 01/12/2001/12/2020 CMP, serum or plasm a sodium 139 mmol/ L 136-14 5 normal Not Available [facility] [address] [place] [address], [address], 01/12/2020 09:32:21 01/12/2001/12/2020 CMP, serum or plasm a potassium 4.2 mmol/ L 3.4-5. 0 normal Not Available [facility] [address] [place] [address], [address], 01/12/2020 09:32:21 01/12/2001/12/2020 CMP, serum or plasm a chloride 103 mmol/ L 98-107 normal Not Available [facility] [address] [place] [address], [address], 01/12/2020 09:32:21 01/12/20 20 01/12/2020 CMP, serum or plasm a carbon dioxide 28 mmol/ L 20-32 normal Not Available [facility] [address] [place] [address], [address], 01/12/2020 09:32:21 01/12/20 20 01/12/2020 CMP, serum or plasm a anion gap 8 (calc ) 7-25 normal Not Available [facility] [address] [place] [address], [address], 01/12/2020 09:32:21 01/12/2001/12/2020 CMP, serum or plasm a calcium 9.1 mg/dL 8.6-10 .2 normal Not Available [facility] [address] [place] [address], [address], 01/12/2020 09:32:21 01/12/2001/12/2020 CMP, serum or plasm a total protein 6.7 g/dL 6.4-8. 3 normal Not Available [facility] [address] [place] [address], [address], 01/12/2020 09:32:21 01/12/2001/12/2020 CMP, serum or plasm a albumin 4.1 g/dL 3.5-5. 2 normal Not Available [facility] [address] [place] [address], [address], 01/12/2020 09:32:21 01/12/2001/12/2020 CMP, serum or plasm a globulin 2.6 g/dL_ (calc ) 1.5-4. 5 normal Not Available [facility] [address] [place] [address], [address], 01/12/2020 09:32:21 01/12/2001/12/2020 CMP, serum or plasm a albumin/glob ulin ratio 1.6 (calc ) 1.1-2. 5 normal Not Available [facility] [address] [place] [address], [address], 01/12/2020 09:32:21 01/12/20 20 01/12/2020 CMP, serum or plasm a bilirubin, total 0.3 mg/dL 0.1-1. 2 normal Not Available [facility] [address] [place] [address], [address], 01/12/2020 09:32:21 01/12/20 20 01/12/2020 CMP, serum or plasm a alkaline phosphatase 58 U/L 35-105 normal Not Available [facility] [address] [place] [address], [address], 01/12/2020 09:32:21 01/12/2001/12/2020 CMP, serum or plasm a AST 20 U/L 0-32 normal Not Available [facility] [address] [place] [address], [address], 01/12/2020 09:32:21 01/12/2001/12/2020 CMP, serum or plasm a ALT 12 U/L 0-33 normal Not Available [facility] [address] [place] [address], [address], 01/12/2020 09:32:21 01/12/2001/12/2020 CMP, serum or plasm a GFR 87 >= 60 normal Not Available [facility] [address] [place] [address], [address], 01/12/2020 09:32:21 01/12/2001/12/2020 CMP, serum or plasm [...] month s or longe r. Not Available [facility] [address] [place] [address], [address], 01/12/2020 09:32:21 01/04/20 22 01/03/2022 COMPL ETE BLOOD COUNT white blood cells 6.9 K/uL 3.8-10 .8 normal Not Available [facility] [address] [place], [address], 01/03/2022 09:22:33 01/04/2001/03/2022 COMPL ETE BLOOD COUNT red blood cells 4.85 M/uL 3.80-5 .20 normal Not Available [facility] [place], [address], 01/03/2022 09:22:33 01/04/20 22 01/03/2022 COMPL ETE BLOOD COUNT hemoglobin 13.6 g/dL 12.0-1 6.0 normal Not Available [facility] [address] [place] [address], [address], 01/03/2022 09:22:33 01/04/2001/03/2022 COMPL ETE BLOOD COUNT hematocrit 40.8 % 35.0-4 7.0 normal Not Available [facility] [address] [place], [address], 01/03/2022 09:22:33 01/04/2001/03/2022 COMPL ETE BLOOD COUNT MCV 84 fL 80-100 normal Not Available [facility] [place], [address], 01/03/2022 09:22:33 01/04/20 22 01/03/2022 COMPL ETE BLOOD COUNT MCH 28 pg 26-35 normal Not Available [facility] [address] [place] [address], [address], 01/03/2022 09:22:33 01/04/20 22 01/03/2022 COMPL ETE BLOOD COUNT MCHC 33 g/dL 32-36 normal Not Available [facility] [address] [place] [address], [address], 01/03/2022 09:22:33 01/04/20 22 01/03/2022 COMPL ETE BLOOD COUNT RDW 15.1 % 11.0-1 5.0 high Not Available [facility] [address] [place] [address], [address], 01/03/2022 09:22:33 01/04/20 22 01/03/2022 COMPL ETE BLOOD COUNT MPV 7.1 fL 6.2-10 .5 normal Not Available [facility] [address] [place] [address], [address], 01/03/2022 09:22:33 01/04/20 22 01/03/2022 COMPL ETE BLOOD COUNT platelet count 328 K/uL 130-40 0 normal Not Available [facility] [address] [place] [address], [address], 01/03/2022 09:22:33 01/04/20 22 01/03/2022 COMPL ETE BLOOD COUNT neutrophil,a bsolute 2.9 K/uL 1.6-8. 4 normal Not Available [facility] [address] [place] [address], [address], 01/03/2022 09:22:33 01/04/20 22 01/03/2022 COMPL ETE BLOOD COUNT lymphocyte,a bsolute 3.0 K/uL 0.4-5. 1 normal Not Available [facility] [address] [place] [address], [address], 01/03/2022 09:22:33 01/04/20 22 01/03/2022 COMPL ETE BLOOD COUNT monocyte,abs olute 0.7 K/uL 0.0-1. 2 normal Not Available [facility] [address] [place] [address], [address], 01/03/2022 09:22:33 01/04/20 22 01/03/2022 COMPL ETE BLOOD COUNT eosinophil,a bsolute 0.2 K/uL 0.0-0. 8 normal Not Available [facility] [address] [place] [address], [address], 01/03/2022 09:22:33 01/04/20 22 01/03/2022 COMPL ETE BLOOD COUNT basophil,abs olute 0.1 K/uL 0.0-0. 3 normal Not Available [facility] [address] [place] [address], [address], 01/03/2022 09:22:33 01/04/20 22 01/03/2022 COMPL ETE BLOOD COUNT % neutrophils 42.0 % 42.0-7 8.0 normal Not Available [facility] [address] [place] [address], [address], 01/03/2022 09:22:33 01/04/20 22 01/03/2022 COMPL ETE BLOOD COUNT % lymphocytes 42.8 % 11.0-4 7.0 normal Not Available [facility] [address] [place] [address], [address], 01/03/2022 09:22:33 01/04/20 22 01/03/2022 COMPL ETE BLOOD COUNT % monocytes 10.6 % 0.0-11 .0 normal Not Available [facility] [address] [place] [address], [address], 01/03/2022 09:22:33 01/04/20 22 01/03/2022 COMPL ETE BLOOD COUNT % eosinophils 3.5 % 0.0-7. 0 normal Not Available [facility] [address] [place] [address], [address], 01/03/2022 09:22:33 01/04/20 22 01/03/2022 COMPL ETE BLOOD COUNT % basophils 1.1 % 0.0-3. 0 normal Not Available [facility] [address] [place] [address], [address], 01/03/2022 09:22:33 01/04/20 22 01/03/2022 COMPL ETE BLOOD COUNT nucleated red cells 0.0 % 0.0-0. 9 normal Not Available [facility] [address] [place] [address], [address], 01/03/2022 09:22:33 01/04/20 22 01/03/2022 COMPL ETE BLOOD COUNT nucleated RBCs, absolute 0.00 K/uL not estab. normal Not Available [facility] [address] [place] [address], [address], 01/03/2022 09:22:33 01/04/20 22 01/03/2022 COMP. METAB OLIC PANEL glucose 108 mg/dL 74-100 high Not Available [facility] [address] [place] [address], [address], 01/03/2022 09:58:10 01/04/20 22 01/03/2022 COMP. METAB OLIC PANEL blood urea nitrogen 8 mg/dL 6-20 normal Not Available [facility] [address] [place] [address], [address], 01/03/2022 09:58:10 01/04/20 22 01/03/2022 COMP. METAB OLIC PANEL creatinine 0.91 mg/dL 0.50-0 .95 normal Not Available [facility] [address] [place] [address], [address], 01/03/2022 09:58:10 01/04/20 22 01/03/2022 COMP. METAB OLIC PANEL BUN/creatini ne ratio 9 (calc ) 10-20 low Not Available [facility] [address] [place] [address], [address], 01/03/2022 09:58:10 01/04/20 22 01/03/2022 COMP. METAB OLIC PANEL sodium 139 mmol/ L 136-14 5 normal Not Available [facility] [address] [place] [address], [address], 01/03/2022 09:58:10 01/04/20 22 01/03/2022 COMP. METAB OLIC PANEL potassium 4.5 mmol/ L 3.4-5. 0 normal Not Available [facility] [address] [place] [address], [address], 01/03/2022 09:58:10 01/04/20 22 01/03/2022 COMP. METAB OLIC PANEL chloride 100 mmol/ L 98-107 normal Not Available [facility] [address] [place] [address], [address], 01/03/2022 09:58:10 01/04/20 22 01/03/2022 COMP. METAB OLIC PANEL carbon dioxide 28 mmol/ L 22-31 normal Not Available [facility] [address] [place] [address], [address], 01/03/2022 09:58:10 01/04/20 22 01/03/2022 COMP. METAB OLIC PANEL anion gap 11 (calc ) 7-25 normal Not Available [facility] [address] [place] [address], [phone], 01/03/2022 09:58:10 01/04/20 22 01/03/2022 COMP. METAB OLIC PANEL calcium 9.8 mg/dL 8.6-10 .2 normal Not Available [facility] [address] [place] [address], [address], 01/03/2022 09:58:10 01/04/20 22 01/03/2022 COMP. METAB OLIC PANEL total protein 7.9 g/dL 6.4-8. 3 normal Not Available [facility] [address] [place] [address], [address], 01/03/2022 09:58:10 01/04/20 22 01/03/2022 COMP. METAB OLIC PANEL albumin 4.4 g/dL 3.5-5. 2 normal Not Available [facility] [address] [place] [address], [address], 01/03/2022 09:58:10 01/04/20 22 01/03/2022 COMP. METAB OLIC PANEL globulin 3.5 g/dL_ (calc ) 1.5-4. 5 normal Not Available [facility] [address] [place] [address], [address], 01/03/2022 09:58:10 01/04/20 22 01/03/2022 COMP. METAB OLIC PANEL albumin/glob ulin ratio 1.3 (calc ) 1.1-2. 5 normal Not Available [facility] [address] [place] [address], [address], 01/03/2022 09:58:10 01/04/20 22 01/03/2022 COMP. METAB OLIC PANEL bilirubin, total 0.5 mg/dL 0.1-1. 2 normal Not Available [facility] [address] [place] [address], [address], 01/03/2022 09:58:10 01/04/20 22 01/03/2022 COMP. METAB OLIC PANEL alkaline phosphatase 73 U/L 30-121 normal Not Available [facility] [address] [place] [address], [address], 01/03/2022 09:58:10 01/04/20 22 01/03/2022 COMP. METAB OLIC PANEL AST 25 U/L 0-32 normal Not Available [facility] [address] [place] [address], [address], 01/03/2022 09:58:10 01/04/20 22 01/03/2022 COMP. METAB OLIC PANEL ALT 17 U/L 0-33 normal Not Available [facility] [address] [place], [address], 01/03/2022 09:58:10 01/04/20 22 01/03/2022 COMP. METAB [...] s/KDO QI/gf r_cal culat orPed Not Available [facility] [address] [place] [address], [address], 01/03/2022 09:58:10 01/04/20 22 01/03/2022 LIPID PROFI LE HDL cholesterol 63 mg/dL 50-242 normal Not Available [facility] [address] [place], [address], 01/03/2022 09:58:12 01/04/20 22 01/03/2022 LIPID PROFI LE triglyceride s 162 mg/dL 0-149 high TRIGL YCERI DE RANGE S SUSI L: < 150 BORDE RLINE HIGH: 150 - 199 HIGH: 200 - 499 VERY HIGH: > OR = 500 Not Available [facility] [address] [place], [address], 01/03/2022 09:58:12 01/04/20 22 01/03/2022 LIPID PROFI LE cholesterol 264 mg/dL 0-199 high ELVA STERO L (TOTA L) RANGE S WU ABLE: < 200 BORDE RLINE : 200 - 239 HIGHE R RISK: > 239 Not Available [facility] [address] [place], [address], 01/03/2022 09:58:12 01/04/20 22 01/03/2022 LIPID PROFI LE LDL cholesterol 169 mg/dL _(diaz c) 0-99 high LDL ELVA STERO L RANGE S OPTIM AL: < 100 NEAR/ ABOVE OPTIM AL: 100 - 129 BORDE RLINE HIGH: 130 - 159 HIGH: 160 - 189 VERY HIGH: > OR = 190 Not Available [facility] [address] [facility], [place], [address], 01/03/2022 09:58:12 05/18/19 20 05/14/2019 MAMMO , scree mary beth, tomos ynthe sis, bilat eral, w/ CAD No observ ation record ed. [address] [facility] [address] [place], [id number], 01/15/2020 12:48:48 05/22/19 21 05/16/2020 MAMMO , scree mary beth, tomos ynthe sis, bilat eral, w/ CAD No observ ation record ed. [address], [place], [address], 01/14/2021 09:10:34 01/04/20 22 05/23/2021 MAMMO , scree mary beth, bilat eral, w/ CAD No observ ation record ed. [address] (Med Record) [address] [place] [address] [address], [place], [address], 01/03/2022 17:21:15 01/10/20 22 01/09/2022 CT, abdom en + pelvi s, w/ contr ast No observ ation record ed. [email or web address] [address], [place], [address], 01/16/2022 13:33:50 Result Notes None recorded. 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 Procedures Surgical History Date Name Laterality Status Provider Name and Address Organization Details Recorded Time 07/05/19 22 Pacemaker completed Graciela Escudero [facility] 01/03/2022 10:18:39 04/21/18 97 Total Hysterectomy completed Tanesha Chino [facility] 01/12/2020 09:16:55 Imaging Results None recorded. Procedure Notes None recorded. Medical Equipment None Reported. Allergies Allergen ID Allergen Name Allergen Category Reaction Reaction Severity Criticality Documentation Date Start Date Code Code System Note Provider Name and Address Organization Details Recorded Time 491164 Calan medicatio n other severe Not available 01/11/2019 80655 0 RxNorm panic attac k Medinacharity [facility] 9 09:09:08 635720 hydrocodo ne Not available Not available Not available Not available 01/11/2019 5489 RxNorm pvcs and pacs Medina [facility] 9 09:09:18 313959 Prilosec medicatio n Not available Not available Not available 01/11/2019 55633 5 RxNorm Medina [facility] 9 09:09:26 399975 Xarelto medicatio n itching severe Not available 01/11/2019 60755 99 [facility] 09:[facility]59 Medications Name Sig Start Date [...] weight Body temperature Heart rate Oxygen saturation Systolic And Diastolic Provider Name and Address Organization Details Last Updated DateTime 2 165.1 cm 45.4 kg/m2 469341. 07 g 97.7 [degF] 72 /min 98 % 120/77 mm[Hg] Graciela Escudero [facility] 2 10:26:19 Date Recorded Body height Body mass index (BMI) Body weight Pain severity - 0-10 verbal numeric rating [Score] - Reported Body temperature Heart rate Oxygen saturation Systolic And Diastolic Provider Name and Address Organization Details Last Updated DateTime 1 165.1 cm 46.1 kg/m2 646341. 44 g 0 97.5 [degF] 67 /min 96 % 125/79 mm[Hg] Tanesha Chino [facility] 1 10:04:34 Date Recorded Body weight Body mass index (BMI) Body height Heart rate Oxygen saturation Body temperature Systolic And Diastolic Provider Name and Address Organization Details Last Updated DateTime 9 980422. 64 g 47.1 kg/m2 165.1 cm 72 /min 97 % 97.7 [degF] 112/72 mm[Hg] Medina Urena [facility] 9 09:15:16 Date Recorded Body height Pain severity - 0-10 verbal numeric rating [Score] - Reported Oxygen saturation Heart rate Body mass index (BMI) Body weight Systolic And Diastolic Provider Name and Address Organization Details Last Updated DateTime 0 165.1 cm 0 98 % 75 /min 46.1 kg/m2 399834. 09 g 130/80 mm[Hg] Tanesha Chino [facility] 0 09:19:11 Social History Question Answer Notes LastModified by [employer] Details LastModified Time Tobacco Smoking Status Never Smoker Medina [facility] 01/11/2019 09:11:34 How Much Tobacco Do You Chew? None Information not available 01/11/2019 Have You Been To An Area Known To Be High Risk For COVID-19? No [email or web address] Information not available 01/12/2020 Live Alone Or With Others? With Others [email or web address] Information not available 01/12/2020 Education Level College Informati on not available 01/12/2020 Learning Preferences Verbal/writt en [email or web address] Information not available 01/10/2021 Marital Status [email or web address] Informatio n not available 01/12/2020 What Was The Date Of Your Most Recent Tobacco Screening? 01/03/2022 [email or web address] Information not available 01/03/2022 How Many Children Do You Have? 1 [email or web address] Information not available 01/12/2020 What Is Your Relationship Status? [email or web address] Information not available 01/10/2021 How Much Tobacco Do You Smoke? No Information not available 01/11/2019 Has Tobacco Cessation Counseling Been Provided? No [email or web address] Information not available 01/10/2021 How Many Years Have You Smoked Tobacco? 0 Information not available 01/11/2019 Sex: Female Functional Status Question Answer Note LastModified by [employer] Details LastModified Time Do you use any illicit or recreational drugs? No [email or web address] Information not available 01/10/2021 Do you or have you ever used any other forms of tobacco or nicotine? No [email or web address] Information not available 01/10/2021 What is your level of alcohol consumption? None Information not available 01/11/2019 Do you or have you ever used smokeless tobacco? Never used [email or web address] tobacco Information not available 01/11/2019 What is your occupation? unemployed [email or web address] Information not available 01/12/2020 Do you or have you ever used e-cigarettes or vape? Never used electronic cigarettes Information not available 01/11/2019 Mental Status None recorded. Family History Relationship Description Onset Age of this Age Resolved Age Notes LastModified by Organization Details LastModified Time Father No current problems or disability [email or web address] Not available 01/11 09:15:22 Mother No current problems or disability [email or web address] Not available 01/11 09:15:22 Medical History Condition Response Hypertension Y Gynecological HistoryNo gynecological history recorded. Obstetrics History GPAL:G 0 P 0 0 0 0 Immunizations Vaccine Type Date Status Note Provider Nam e and Address Organization Details Recorded Time COVID-19, mRNA, LNP-S, PF, 100 mcg/0.5mL dose or 50 mcg/0.25mL dose 06/20/2020 completed Tanesha Chino [facility] 01/10/2021 10:01:11 COVID-19, mRNA, LNP-S, PF, 100 mcg/0.5mL dose or 50 mcg/0.25mL dose 07/18/2020 completed Tanesha Chino [facility] 01/10/2021 10:01:17 Past Encounters Encounter ID Performer Location Encounter Start Date Encounter Closed Date Diagnosis/Indication Diagnosis SNOMED-CT Code Diagnosis ICD10 Code Diagnosis IMO Codes Diagnosis Note [id number] JEAN CRUZ MD [facility] [address] [address] 01/01/2017 09:05:16 01/01/2017 11:50:36 [id number] JEAN CRUZ MD H[facility] [place] [facility] [address],[facility] [address] [place] [address] 01/07/2018 08:49:47 01/07/2018 10:46:01 [id number] JEAN CRUZ MD HEM/ONC [place] CLOSED [address] [place] [address] 01/11/2019 08:55:10 01/11/2019 11:07:29 History of non-Hodgkins lymphoma 808891724 Z85.72 History of radiation therapy to chest 0678230152 9104 Z92.3 Body mass index 40+ - severely obese 108797528 Z68.42 Antithromb in III deficiency 70114871 D68.59 Long-term drug therapy 872797241 Z79.107 [id number] MILKA WALKER MD [address] [place] [address] 02/11/2019 13:30:03 02/11/2019 15:57:14 [id number] SHELBY DANIELS [address] [place] [address] 02/11/2019 14:39:21 02/11/2019 15:44:54 [id number] JEAN RCUZ MD HEM/ONC [place] CLOSED [address] [place] [address] 01/12/2020 09:03:57 01/12/2020 11:16:40 History of non-Hodgkins lymphoma 056310586 Z85.72 [id number] JEAN CRUZ MD HEM/ONC [place] [facility] [address] [place] [id number] 01/10/2021 09:05:14 01/10/2021 12:50:40 History of non-Hodgkins lymphoma 593793172 Z85.72 Antithromb in III deficiency 50300824 D68.59 History of radiation therapy to chest 4510727185 9104 Z92.3 Long-term current use of anticoagulant 473861061 Z79.01 Body mass index 40+ - severely obese 956481575 Z68.42 [id number] JEAN CRUZ MD HEM/ONC [place] [facility] [address] [place] [id number] 01/03/2022 09:08:05 01/03/2022 11:54:52 Antithrombin III deficiency 51933933 D68.59 History of radiation therapy to chest 1185070277 9104 Z92.3 History of non-Hodgkins lymphoma 400201752 Z85.72 Long-term current use of anticoagulant 470525092 Z79.01 Left upper quadrant pain 315264445 R10.12 Body mass index 40+ - severely obese 395686336 Z68.42 Health Concerns Section Related Observation LastModified by Organization Detai ls LastModified Time None Recorded Concern Status LastModified by Organization Details LastModified Time None Recorded Advance Directives Directive None Recorded Payers Insurance Date Sequence Insurance Name Policy Number Policy Lynn Covered Member ID Lynn Member ID Guarantor Name 01/15/2022 2 [facility] [employer] MULT[employer] (PPO) Jessica Odell [id number] Jessica Odell 01/11/2022 2 [employer] - MULTIPLAN (PPO) Jessica Odell [id number] Jessica Odell 01/10/2022 1 [facility] (MEDICAID HMO) Jessica Odell [id number] Jessica Odell 01/10/2022 GENERIC INSURANC E - MOVED-HOLD Jessica Odell 08/23/2021 1 [place] [id number] Oskar Odell [id number] Jessica Odell Notes Date Note Type Note Provider Name and Address Organization Details Recorded Time 01/11/2019 text/html HPIReported b y PatientVisit DetailsFor advanced directives / biobank authorizations, patient reportsadvanced directives? no. For discharge, patient reportsdischarge disposition stable.Distress ScreeningFor distress screening, patient reportshas the distress screening been completed in the last 45 days? yesanddistress level 0 no stress. For practical problems, patient reportsno practical problems. For family problems, patient reportsno family problems. For emotional problems, patient reportsno emotional problems. For spiritual/voodoo, patient reportsspiritual/religi ous problems? no. For physical problems, patient reportsno physical problems.NutritionFor nutrition screening, patient reportsnutrition screening yes,special diet restrictions? describe:,nutrition counseling last 6 months? no, andnutrition protocol implemented? no. Ms. 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 She had 8 cycles of ProMACE-CytaBom chemotherapy, followed by thoracic radiation. Other medical history is significant for anti-thrombin III deficiency, DVT and PE in 2013, continuing on Coumadin, hysterectomy with incidental appendectomy in 1997, arthritis and obesity. JEAN CRUZ MD [facility] [place], [address], [facility] 01/17/2019 19:04:19 01/12/2020 text/html HPIReported b y PatientVisit DetailsFor advanced directives / biobank authorizations, patient reportsadvanced directives? no. For discharge, patient reportsdischarge disposition stable.Distress ScreeningFor physical problems, patient reportsweight lossandweight gain. For distress screening, patient reportshas the distress screening been completed in the last 45 days? yesanddistress level 0 no stress. For practical problems, patient reportsno practical problems. For family problems, patient reportsno family problems. For emotional problems, patient reportsno emotional problems. For spiritual/voodoo, patient reportsspiritual/religi ous problems? no.NutritionFor nutrition screening, patient reportsnutrition screening yes,special diet restrictions? describe:,nutrition counseling last 6 months? no, andnutrition protocol implemented? no. Ms. 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 She had 8 cycles of ProMACE-CytaBom chemotherapy, followed by thoracic radiation. Other medical history is significant for anti-thrombin III deficiency, DVT and PE in 2013, continuing on Coumadin, hysterectomy with incidental appendectomy in 1997, arthritis and obesity. JEAN CRUZ MD [facility] [place], [address], [facility] 01/15/2020 12:49:09 01/10/2021 text/html HPIReported b y PatientVisit DetailsFor patient accompanied by, patient reportspatient accompanied by spouse. For advanced directives / biobank authorizations, patient reportsadvanced directives? no. For discharge, patient reportsdischarge disposition stableanddischarge mode ambulatory.Distress ScreeningFor distress screening, patient reportshas the distress screening been completed in the last 45 days? yesanddistress level 0 no stress. For practical problems, patient reportsno practical problems. For family problems, patient reportsno family problems. For emotional problems, patient reportsno emotional problems. For spiritual/voodoo, patient reportsspiritual/religi ous problems? no. For physical problems, patient reportsno physical problems.NutritionFor nutrition screening, patient reportsnutrition screening yes,special diet restrictions? describe:,nutrition counseling last 6 months? no, andnutrition protocol implemented? no. Ms. 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 She had 8 cycles of ProMACE-CytaBom chemotherapy, followed by thoracic radiation. Other medical history is significant for anti-thrombin III deficiency, DVT and PE in 2013, continuing on Coumadin, hysterectomy with incidental appendectomy in 1997, arthritis and obesity. JEAN CRUZ MD [address] [place] [address], [address], [facility] 01/14/2021 09:13:56 01/03/2022 text/html HPIReported b y PatientVisit DetailsFor patient accompanied by, patient reportspatient accompanied by spouse. For advanced directives / biobank authorizations, patient reportsadvanced directives? no. For discharge, patient reportsdischarge disposition stableanddischarge mode ambulatory.Distress ScreeningFor distress screening, patient reportshas the distress screening been completed in the last 45 days? yesanddistress level 0 no stress. For practical problems, patient reportsno practical problems. For family problems, patient reportsno family problems. For emotional problems, patient reportsno emotional problems. For spiritual/voodoo, patient reportsspiritual/religi ous problems? no. For physical problems, patient reportsno physical problems.NutritionFor nutrition screening, patient reportsnutrition screening yes,special diet restrictions? describe:,nutrition counseling last 6 months? no, andnutrition protocol implemented? no. Ms. 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 She had 8 cycles of ProMACE-CytaBom chemotherapy, followed by thoracic radiation. Other medical history is significant for anti-thrombin III deficiency, DVT and PE in 2013, continuing on Coumadin, hysterectomy with incidental appendectomy in 1997, arthritis and obesity. JEAN CRUZ MD [address] [place] [address], [address], [facility] 01/05/2022 20:04:05 OBGyn Episode No OBEpisode recorded.
--- OUTSIDE RECORDS SUMMARY | 2025-03-23 13:56 | XMS_ITS | Encounter Summary ---
Author Organization Healthcare Address [address] [place] [address] Care Team Providers Care Agriscience Technology Instructor Name Role Phone Martin Khan MD Primary Care Provider [phone] Encounter Details Date Type Department Care Team (Late st Contact Info) Description 01/03/2022 Orders Only [facility] [address] [place] [id number] Susannah Ballard MD [address] [address] Social History Tobacco Use Types [...] External WBC 6.9 3.8 - 10.8 K/uL [facility] External Red Blood Cell (RBC) 4.85 3.80 - 5.20 M/uL [facility] External Hemoglobin 13.6 12.0 - 16.0 G/DL [facility] External Hematocrit 40.8 35.0 - 47.0 % [facility] External MCV 84 80 - 100 fL [facility] External MCH 28 26 - 35 PG [facility] External MCHC 33 32 - 36 G/DL [facility] External RDW 15.1(H) 11.0 - 15.0 % [facility] External Mean Platelet Volume 7.1 6.2 - 10.5 fL [facility] External Platelets 328 130 - 400 K/uL [facility] External Neutrophil# 2.9 1.6 - 8.4 K/uL [facility] External Lymphocyte# 3.0 0.4 - 5.1 K/uL [facility] External Absolute Monocyte (Abs [place]) 0.7 0.0 - 1.2 K/uL [facility] External Eosinophils# 0.2 0.0 - 0.8 K/uL [facility] External Baso# 0.1 0.0 - 0.3 K/uL [facility] External Neutrophils % 42.0 42.0 - 78.0 % [facility] External Lymphocyte % 42.8 11.0 - 47.0 % [facility] External Monocyte % 10.6 0.0 - 11.0 % [facility] External Eosinophil% 3.5 0.0 - 7.0 % [facility] External Basophil % 1.1 0.0 - 3.0 % [facility] External Nucleated RBC%-Auto 0.0 0.0 - 0.9 % [facility] External Nucleated RBC Absolute 0.00 Not Estab. K/uL [facility] 01/03/2022 8:55 AM EDT 01/03/2022 9:15 AM EDT us Susannah Ballard MD LAB BLOOD ORDERABLES Final Res ult [facility] [place] [address], documented in this encounter Visit Diagnoses Not on filedocumented in this encounter Additional Health Concerns Assessment Noted Time A Body Mass Index follow-up plan has been documented for the patient 12/31/2022 6:20 PM EDT documented as of this encounter Care Teams Agriscience Technology Instructor Relationship Specialty Start Date End Date Martin Khan MD [address] [place] [address] [address] [place] [address] PCP - General 09/01/20 documented as of this encounter
--- OUTSIDE RECORDS SUMMARY | 2025-03-23 13:56 | XMS_ITS | Data Portability ---
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 Patient Instructions Encounter Date Encounter Id Patient Instructions Last Modified By Organization Details Last Modified Time 01/01/2017 [id number] learning about healthy weight IRVING Not available 02/17/2017 11:11:29 01/07/2018 [id number] non-hodgkin lymphoma: care instructions sliddle Not available 01/07/2018 10:31:08 When You Want to Lose Weight: Care Instructions sliddle Not available 01/07/2018 10:31:28 02/11/2019 [id number] nausea and vomiting: care instructions gosetinsky Not [...] 4.8 K/uL 3.8-10 .8 normal Not Available [facility] [address] [place] [address], [address], 01/01/2017 09:35:48 01/02/2001/01/2017 CBC w/ auto diff red blood cells 4.85 M/uL 3.80-5 .20 normal Not Available [facility] [address] [place], [address], 01/01/2017 09:35:48 01/02/2001/01/2017 CBC w/ auto diff hemoglobin 13.6 g/dL 12.0-1 6.0 normal Not Available [facility] [address] [place], [address], 01/01/2017 09:35:48 01/02/20 17 01/01/2017 CBC w/ auto diff hematocrit 41.4 % 35.0-4 7.0 normal Not Available [facility] [address] [place], [address], 01/01/2017 09:35:48 01/02/20 17 01/01/2017 CBC w/ auto diff MCV 85 fL 80-100 normal Not Available [facility] [address] [place] [address], [address], 01/01/2017 09:35:48 01/02/2001/01/2017 CBC w/ auto diff MCH 28 pg 26-35 normal Not Available [facility] [address] [place] [address], [address], 01/01/2017 09:35:48 01/02/2001/01/2017 CBC w/ auto diff MCHC 33 g/dL 32-36 normal Not Available [facility] [address] [place] [address], [address], 01/01/2017 09:35:48 01/02/2001/01/2017 CBC w/ auto diff RDW 14.6 % 11.0-1 5.0 normal Not Available [facility] [address] [place] [address], [address], 01/01/2017 09:35:48 01/02/2001/01/2017 CBC w/ auto diff MPV 7.5 fL 6.2-10 .5 normal Not Available [facility] [address] [place] [address], [address], 01/01/2017 09:35:48 01/02/2001/01/2017 CBC w/ auto diff platelet count 239 K/uL 130-40 0 normal Not Available [facility] [address] [place] [address], [address], 01/01/2017 09:35:48 01/02/2001/01/2017 CBC w/ auto diff neutrophil,a bsolute 1.9 K/uL 1.6-8. 4 normal Not Available [facility] [address] [place] [address], [address], 01/01/2017 09:35:48 01/02/2001/01/2017 CBC w/ auto diff lymphocyte,a bsolute 2.2 K/uL 0.4-5. 1 normal Not Available [facility] [address] [place] [address], [address], 01/01/2017 09:35:48 01/02/2001/01/2017 CBC w/ auto diff monocyte,abs olute 0.4 K/uL 0.0-1. 2 normal Not Available [facility] [address] [place] [address], [address], 01/01/2017 09:35:48 01/02/2001/01/2017 CBC w/ auto diff eosinophil,a bsolute 0.2 K/uL 0.0-0. 8 normal Not Available [facility] [address] [place] [address], [address], 01/01/2017 09:35:48 01/02/2001/01/2017 CBC w/ auto diff basophil,abs olute 0.0 K/uL 0.0-0. 3 normal Not Available [facility] [address] [place] [address], [address], 01/01/2017 09:35:48 01/02/2001/01/2017 CBC w/ auto diff % neutrophils 40.6 % 42.0-7 8.0 low Not Available [facility] [address] [place] [address], [address], 01/01/2017 09:35:48 01/02/2001/01/2017 CBC w/ auto diff % lymphocytes 45.6 % 11.0-4 7.0 normal Not Available [facility] [address] [place] [address], [address], 01/01/2017 09:35:48 01/02/20 17 01/01/2017 CBC w/ auto diff % monocytes 8.8 % 0.0-11 .0 normal Not Available [facility] [address] [place] [address], [address], 01/01/2017 09:35:48 01/02/20 17 01/01/2017 CBC w/ auto diff % eosinophils 4.0 % 0.0-7. 0 normal Not Available [facility] [address] [place] [address], [address], 01/01/2017 09:35:48 01/02/2001/01/2017 CBC w/ auto diff % basophils 1.0 % 0.0-3. 0 normal Not Available [facility] [address] [place] [address], [address], 01/01/2017 09:35:48 01/02/2001/01/2017 CBC w/ auto diff nucleated red cells 0.2 % 0.0-0. 9 normal Not Available [facility] [address] [place] [address], [address], 01/01/2017 09:35:48 01/02/2001/01/2017 CBC w/ auto diff nucleated RBCs, absolute 0.01 K/uL not estab. normal Not Available [facility] [address] [place] [address], [address], 01/01/2017 09:35:48 01/02/2001/01/2017 CMP, serum or plasm a glucose 95 mg/dL 74-100 normal Not Available [facility] [address] [place] [address], [address], 01/01/2017 10:04:58 01/02/2001/01/2017 CMP, serum or plasm a blood urea nitrogen 10 mg/dL 6-20 normal Not Available [facility] [address] [place] [address], [address], 01/01/2017 10:04:58 01/02/20 17 01/01/2017 CMP, serum or plasm a creatinine 0.81 mg/dL 0.50-0 .95 normal Not Available [facility] [address] [place] [address], [address], 01/01/2017 10:04:58 01/02/20 17 01/01/2017 CMP, serum or plasm a BUN/creatini ne ratio 12 (calc ) 10-20 normal Not Available [facility] [address] [place] [address], [address], 01/01/2017 10:04:58 01/02/20 17 01/01/2017 CMP, serum or plasm a GFR 96 >= 60 normal Not Available [facility] [address] [place] [address], [address], 01/01/2017 10:04:58 01/02/20 17 01/01/2017 CMP, serum [...] s or longe r. . Not Available [facility] [address] [place] [address], [address], 01/01/2017 10:04:58 01/02/20 17 01/01/2017 CMP, serum or plasm a sodium 138 mmol/ L 136-14 5 normal Not Available [facility] [address] [place] [address], [address], 01/01/2017 10:04:58 01/02/20 17 01/01/2017 CMP, serum or plasm a potassium 4.2 mmol/ L 3.4-5. 0 normal Not Available [facility] [address] [place] [address], [address], 01/01/2017 10:04:58 01/02/20 17 01/01/2017 CMP, serum or plasm a chloride 101 mmol/ L 98-107 normal Not Available [facility] [address] [place] [address], [address], 01/01/2017 10:04:58 01/02/20 17 01/01/2017 CMP, serum or plasm a carbon dioxide 22 mmol/ L 20-32 normal Not Available [facility] [address] [place] [address], [address], 01/01/2017 10:04:58 01/02/2001/01/2017 CMP, serum or plasm a anion gap 15 (calc ) 7-25 normal Not Available [facility] [address] [place] [address], [address], 01/01/2017 10:04:58 01/02/20 17 01/01/2017 CMP, serum or plasm a calcium 8.9 mg/dL 8.6-10 .2 normal Not Available [facility] [address] [place] [address], [address], 01/01/2017 10:04:58 01/02/20 17 01/01/2017 CMP, serum or plasm a total protein 7.3 g/dL 6.4-8. 3 normal Not Available [facility] [address] [place] [address], [address], 01/01/2017 10:04:58 01/02/20 17 01/01/2017 CMP, serum or plasm a albumin 3.9 g/dL 3.5-5. 2 normal Not Available [facility] [address] [place] [address], [address], 01/01/2017 10:04:58 01/02/20 17 01/01/2017 CMP, serum or plasm a globulin 3.4 g/dL_ (calc ) 1.5-4. 5 normal Not Available [facility] [address] [place] [address], [address], 01/01/2017 10:04:58 01/02/20 17 01/01/2017 CMP, serum or plasm a albumin/glob ulin ratio 1.1 (calc ) 1.1-2. 5 normal Not Available [facility] [address] [place] [address], [address], 01/01/2017 10:04:58 01/02/20 17 01/01/2017 CMP, serum or plasm a bilirubin, total 0.5 mg/dL 0.1-1. 2 normal Not Available [facility] [address] [place] [address], [address], 01/01/2017 10:04:58 01/02/20 17 01/01/2017 CMP, serum or plasm a alkaline phosphatase 61 U/L 35-105 normal Not Available [facility] [address] [place] [address], [address], 01/01/2017 10:04:58 01/02/20 17 01/01/2017 CMP, serum or plasm a AST 23 U/L 0-32 normal Not Available [facility] [address] [place] [address], [address], 01/01/2017 10:04:58 01/02/20 17 01/01/2017 CMP, serum or plasm a ALT 14 U/L 0-33 normal Not Available [facility] [address] [place] [address], [address], 01/01/2017 10:04:58 01/02/20 17 01/01/2017 lipid panel , serum HDL cholesterol 65 mg/dL 66-242 low Not Available [facility] [address] [place] [address], [address], 01/01/2017 10:05:00 01/02/20 17 01/01/2017 lipid panel , serum triglyceride s 131 mg/dL 0-149 normal TRIGL YCERI DE RANGE S SUSI L: < 150 BORDE RLINE HIGH: 150 - 199 HIGH: 200 - 499 VERY HIGH: > OR = 500 Not Available [facility] [address] [place] [address], [address], 01/01/2017 10:05:00 01/02/20 17 01/01/2017 lipid panel , serum cholesterol 223 mg/dL 0-199 high ELVA STERO L (TOTA L) RANGE S WU ABLE: < 200 BORDE RLINE : 200 - 239 HIGHE R RISK: > 239 Not Available [facility] [address] [place] [address], [address], 01/01/2017 10:05:00 01/02/20 17 01/01/2017 lipid panel , serum LDL cholesterol 132 mg/dL _(diaz c) 0-99 high LDL ELVA STERO L RANGE S OPTIM AL: < 100 NEAR/ ABOVE OPTIM AL: 100 - 129 BORDE RLINE HIGH: 130 - 159 HIGH: 160 - 189 VERY HIGH: > OR = 190 Not Available [facility] [address] [place] [address], [address], 01/01/2017 10:05:00 01/08/20 18 01/07/2018 CBC w/ auto diff white blood cells 4.8 K/uL 3.8-10 .8 normal Not Available [facility] [address] [place] [address], [address], 01/07/2018 09:32:31 01/08/20 18 01/07/2018 CBC w/ auto diff red blood cells 4.53 M/uL 3.80-5 .20 normal Not Available [facility] [address] [place] [address], [address], 01/07/2018 09:32:31 01/08/20 18 01/07/2018 CBC w/ auto diff hemoglobin 13.4 g/dL 12.0-1 6.0 normal Not Available [facility] [address] [place] [address], [address], 01/07/2018 09:32:31 01/08/20 18 01/07/2018 CBC w/ auto diff hematocrit 38.8 % 35.0-4 7.0 normal Not Available [facility] [address] [place] [address], [address], 01/07/2018 09:32:31 01/08/20 18 01/07/2018 CBC w/ auto diff MCV 86 fL 80-100 normal Not Available [facility] [address] [place] [address], [address], 01/07/2018 09:32:31 01/08/20 18 01/07/2018 CBC w/ auto diff MCH 30 pg 26-35 normal Not Available [facility] [address] [place] [address], [address], 01/07/2018 09:32:31 01/08/20 18 01/07/2018 CBC w/ auto diff MCHC 34 g/dL 32-36 normal Not Available [facility] [address] [place] [address], [address], 01/07/2018 09:32:31 01/08/20 18 01/07/2018 CBC w/ auto diff RDW 14.3 % 11.0-1 5.0 normal Not Available [facility] [address] [place] [address], [address], 01/07/2018 09:32:31 01/08/20 18 01/07/2018 CBC w/ auto diff MPV 7.7 fL 6.2-10 .5 normal Not Available [facility] [address] [place] [address], [address], 01/07/2018 09:32:31 01/08/20 18 01/07/2018 CBC w/ auto diff platelet count 268 K/uL 130-40 0 normal Not Available [facility] [address] [place] [address], [address], 01/07/2018 09:32:31 01/08/20 18 01/07/2018 CBC w/ auto diff neutrophil,a bsolute 1.9 K/uL 1.6-8. 4 normal Not Available [facility] [address] [place] [address], [address], 01/07/2018 09:32:31 01/08/20 18 01/07/2018 CBC w/ auto diff lymphocyte,a bsolute 2.2 K/uL 0.4-5. 1 normal Not Available [facility] [address] [place] [address], [address], 01/07/2018 09:32:31 01/08/20 18 01/07/2018 CBC w/ auto diff monocyte,abs olute 0.5 K/uL 0.0-1. 2 normal Not Available [facility] [address] [place] [address], [address], 01/07/2018 09:32:31 01/08/20 18 01/07/2018 CBC w/ auto diff eosinophil,a bsolute 0.2 K/uL 0.0-0. 8 normal Not Available [facility] [address] [place] [address], [address], 01/07/2018 09:32:31 01/08/20 18 01/07/2018 CBC w/ auto diff basophil,abs olute 0.0 K/uL 0.0-0. 3 normal Not Available [facility] [address] [place] [address], [address], 01/07/2018 09:32:31 01/08/20 18 01/07/2018 CBC w/ auto diff % neutrophils 40.4 % 42.0-7 8.0 low Not Available [facility] [address] [place] [address], [address], 01/07/2018 09:32:31 01/08/20 18 01/07/2018 CBC w/ auto diff % lymphocytes 44.9 % 11.0-4 7.0 normal Not Available [facility] [address] [place] [address], [address], 01/07/2018 09:32:31 01/08/20 18 01/07/2018 CBC w/ auto diff % monocytes 10.6 % 0.0-11 .0 normal Not Available [facility] [address] [place] [address], [address], 01/07/2018 09:32:31 01/08/20 18 01/07/2018 CBC w/ auto diff % eosinophils 3.3 % 0.0-7. 0 normal Not Available [facility] [address] [place] [address], [address], 01/07/2018 09:32:31 01/08/20 18 01/07/2018 CBC w/ auto diff % basophils 0.8 % 0.0-3. 0 normal Not Available [facility] [address] [place] [address], [address], 01/07/2018 09:32:31 01/08/20 18 01/07/2018 CBC w/ auto diff nucleated red cells 0.2 % 0.0-0. 9 normal Not Available [facility] [address] [place] [address], [address], 01/07/2018 09:32:31 01/08/20 18 01/07/2018 CBC w/ auto diff nucleated RBCs, absolute 0.01 K/uL not estab. normal Not Available [facility] [address] [place] [address], [address], 01/07/2018 09:32:31 01/08/20 18 01/07/2018 CMP, serum or plasm a glucose 104 mg/dL 74-100 high Not Available [facility] [address] [place] [address], [address], 01/07/2018 09:55:17 01/08/20 18 01/07/2018 CMP, serum or plasm a blood urea nitrogen 9 mg/dL 6-20 normal Not Available [facility] [place], [address], 01/07/2018 09:55:17 01/08/20 18 01/07/2018 CMP, serum or plasm a creatinine 0.85 mg/dL 0.50-0 .95 normal Not Available [facility] [address] [place], [address], 01/07/2018 09:55:17 01/08/20 18 01/07/2018 CMP, serum or plasm a BUN/creatini ne ratio 11 (calc ) 10-20 normal Not Available [facility] [address] [place] [address], [address], 01/07/2018 09:55:17 01/08/20 18 01/07/2018 CMP, serum or plasm a sodium 138 mmol/ L 136-14 5 normal Not Available [facility] [address] [place] [address], [address], 01/07/2018 09:55:17 01/08/20 18 01/07/2018 CMP, serum or plasm a potassium 4.6 mmol/ L 3.4-5. 0 normal Not Available [facility] [address] [place] [address], [address], 01/07/2018 09:55:17 01/08/20 18 01/07/2018 CMP, serum or plasm a chloride 101 mmol/ L 98-107 normal Not Available [facility] [address] [place] [address], [address], 01/07/2018 09:55:17 01/08/20 18 01/07/2018 CMP, serum or plasm a carbon dioxide 29 mmol/ L 20-32 normal Not Available [facility] [address] [place], [address], 01/07/2018 09:55:17 01/08/20 18 01/07/2018 CMP, serum or plasm a anion gap 8 (calc ) 7-25 normal Not Available [facility] [address] [place], [address], 01/07/2018 09:55:17 01/08/20 18 01/07/2018 CMP, serum or plasm a calcium 9.2 mg/dL 8.6-10 .2 normal Not Available [facility] [address] [place] [address], [address], 01/07/2018 09:55:01/08/20 18 01/07/2018 CMP, serum or plasm a total protein 7.2 g/dL 6.4-8. 3 normal Not Available [facility] [address] [place] [address], [address], 01/07/2018 09:55:01/08/20 18 01/07/2018 CMP, serum or plasm a albumin 3.9 g/dL 3.5-5. 2 normal Not Available [facility] [address] [place] [address], [address], 01/07/2018 09:55:01/08/20 18 01/07/2018 CMP, serum or plasm a globulin 3.3 g/dL_ (calc ) 1.5-4. 5 normal Not Available [facility] [address] [place] [address], [address], 01/07/2018 09:55:01/08/2001/07/2018 CMP, serum or plasm a albumin/glob ulin ratio 1.2 (calc ) 1.1-2. 5 normal Not Available [facility] [address] [place] [address], [address], 01/07/2018 09:55:01/08/2001/07/2018 CMP, serum or plasm a bilirubin, total 0.6 mg/dL 0.1-1. 2 normal Not Available [facility] [address] [place] [address], [address], 01/07/2018 09:55:01/08/2001/07/2018 CMP, serum or plasm a alkaline phosphatase 55 U/L 35-105 normal Not Available [facility] [place], [address], 01/07/2018 09:55:17 01/08/20 18 01/07/2018 CMP, serum or plasm a AST 18 U/L 0-32 normal Not Available [facility] [address] [place] [address], [address], 01/07/2018 09:55:17 01/08/20 18 01/07/2018 CMP, serum or plasm a ALT 13 U/L 0-33 normal Not Available [facility] [address] [place], [address], 01/07/2018 09:55:17 01/08/20 18 01/07/2018 CMP, serum or plasm a GFR 90 >= 60 normal Not Available [facility] [address] [place], [address], 01/07/2018 09:55:17 01/08/20 18 01/07/2018 CMP, serum [...] s or longe r. . Not Available [facility] [address] [place], [address], 01/07/2018 09:55:17 01/08/2001/07/2018 lipid panel , serum HDL cholesterol 62 mg/dL 66-242 low Not Available [facility] [address] [place], [address], 01/07/2018 09:55:19 01/08/2001/07/2018 lipid panel , serum triglyceride s 125 mg/dL 0-149 normal TRIGL YCERI DE RANGE S SUSI L: < 150 BORDE RLINE HIGH: 150 - 199 HIGH: 200 - 499 VERY HIGH: > OR = 500 Not Available [facility] [address] [place] [address], [address], 01/07/2018 09:55:19 01/08/2001/07/2018 lipid panel , serum cholesterol 240 mg/dL 0-199 high ELVA STERO L (TOTA L) RANGE S WU ABLE: < 200 BORDE RLINE : 200 - 239 HIGHE R RISK: > 239 Not Available [facility] [address] [place] [address], [address], 01/07/2018 09:55:01/08/2001/07/2018 lipid panel , serum LDL cholesterol 153 mg/dL _(diaz c) 0-99 high LDL ELVA STERO L RANGE S OPTIM AL: < 100 NEAR/ ABOVE OPTIM AL: 100 - 129 BORDE RLINE HIGH: 130 - 159 HIGH: 160 - 189 VERY HIGH: > OR = 190 Not Available [facility] [address] [place] [address], [address], 01/07/2018 09:55:19 01/12/2001/11/2019 CMP, serum or plasm a glucose 108 mg/dL 74-100 high Not Available [facility] [address] [place] [address], [address], 01/11/2019 09:17:14 01/12/2001/11/2019 CMP, serum or plasm a blood urea nitrogen 10 mg/dL 6-20 normal Not Available [facility] [address] [place], [address], 01/11/2019 09:17:14 01/12/2001/11/2019 CMP, serum or plasm a creatinine 0.92 mg/dL 0.50-0 .95 normal Not Available [facility] [address] [place] [address], [address], 01/11/2019 09:17:14 01/12/20 19 01/11/2019 CMP, serum or plasm a BUN/creatini ne ratio 11 (calc ) 10-20 normal Not Available [facility] [address] [place] [address], [address], 01/11/2019 09:17:14 01/12/20 19 01/11/2019 CMP, serum or plasm a sodium 139 mmol/ L 136-14 5 normal Not Available [facility] [address] [place] [address], [address], 01/11/2019 09:17:14 01/12/2001/11/2019 CMP, serum or plasm a potassium 4.2 mmol/ L 3.4-5. 0 normal Not Available [facility] [address] [place] [address], [address], 01/11/2019 09:17:14 01/12/2001/11/2019 CMP, serum or plasm a chloride 101 mmol/ L 98-107 normal Not Available [facility] [address] [place] [address], [address], 01/11/2019 09:17:14 01/12/2001/11/2019 CMP, serum or plasm a carbon dioxide 24 mmol/ L 20-32 normal Not Available [facility] [address] [place] [address], [address], 01/11/2019 09:17:14 01/12/2001/11/2019 CMP, serum or plasm a anion gap 14 (calc ) 7-25 normal Not Available [facility] [address] [place] [address], [address], 01/11/2019 09:17:14 01/12/2001/11/2019 CMP, serum or plasm a calcium 9.0 mg/dL 8.6-10 .2 normal Not Available [facility] [address] [place] [address], [address], 01/11/2019 09:17:14 01/12/2001/11/2019 CMP, serum or plasm a total protein 6.8 g/dL 6.4-8. 3 normal Not Available [facility] [address] [place] [address], [address], 01/11/2019 09:17:14 01/12/2001/11/2019 CMP, serum or plasm a albumin 3.9 g/dL 3.5-5. 2 normal Not Available [facility] [address] [place] [address], [address], 01/11/2019 09:17:14 01/12/2001/11/2019 CMP, serum or plasm a globulin 2.9 g/dL_ (calc ) 1.5-4. 5 normal Not Available [facility] [address] [place] [address], [address], 01/11/2019 09:17:14 01/12/2001/11/2019 CMP, serum or plasm a albumin/glob ulin ratio 1.3 (calc ) 1.1-2. 5 normal Not Available [facility] [address] [place] [address], [address], 01/11/2019 09:17:14 01/12/2001/11/2019 CMP, serum or plasm a bilirubin, total 0.4 mg/dL 0.1-1. 2 normal Not Available [facility] [address] [place] [address], [phone], 01/11/2019 09:17:14 01/12/2001/11/2019 CMP, serum or plasm a alkaline phosphatase 55 U/L 35-105 normal Not Available [facility] [address] [place] [address], [address], 01/11/2019 09:17:14 01/12/2001/11/2019 CMP, serum or plasm a AST 16 U/L 0-32 normal Not Available [facility] [address] [place] [address], [address], 01/11/2019 09:17:14 01/12/20 19 01/11/2019 CMP, serum or plasm a ALT 12 U/L 0-33 normal Not Available [facility] [address] [place] [address], [phone], 01/11/2019 09:17:14 01/12/20 19 01/11/2019 CMP, serum or plasm a GFR 81 >= 60 normal Not Available [facility] [address] [place], [address], 01/11/2019 09:17:14 01/12/20 19 01/11/2019 CMP, serum [...] month s or longe r. Not Available [facility] [address] [place] [address], [address], 01/11/2019 09:17:14 01/12/20 19 01/11/2019 CBC w/ auto diff white blood cells 5.9 K/uL 3.8-10 .8 normal Not Available [facility] [address] [place] [address], [address], 01/11/2019 09:02:43 01/12/2001/11/2019 CBC w/ auto diff red blood cells 4.35 M/uL 3.80-5 .20 normal Not Available [facility] [address] [place] [address], [address], 01/11/2019 09:02:43 01/12/2001/11/2019 CBC w/ auto diff hemoglobin 12.7 g/dL 12.0-1 6.0 normal Not Available [facility] [address] [place] [address], [address], 01/11/2019 09:02:43 01/12/20 19 01/11/2019 CBC w/ auto diff hematocrit 37.6 % 35.0-4 7.0 normal Not Available [facility] [address] [place] [address], [address], 01/11/2019 09:02:43 01/12/2001/11/2019 CBC w/ auto diff MCV 87 fL 80-100 normal Not Available [facility] [address] [place] [address], [address], 01/11/2019 09:02:43 01/12/2001/11/2019 CBC w/ auto diff MCH 29 pg 26-35 normal Not Available [facility] [address] [place] [address], [address], 01/11/2019 09:02:43 01/12/2001/11/2019 CBC w/ auto diff MCHC 34 g/dL 32-36 normal Not Available [facility] [address] [place] [address], [address], 01/11/2019 09:02:43 01/12/2001/11/2019 CBC w/ auto diff RDW 14.5 % 11.0-1 5.0 normal Not Available [facility] [address] [place] [address], [address], 01/11/2019 09:02:43 01/12/2001/11/2019 CBC w/ auto diff MPV 7.3 fL 6.2-10 .5 normal Not Available [facility] [address] [place] [address], [address], 01/11/2019 09:02:43 01/12/2001/11/2019 CBC w/ auto diff platelet count 250 K/uL 130-40 0 normal Not Available [facility] [address] [place] [address], [address], 01/11/2019 09:02:43 01/12/2001/11/2019 CBC w/ auto diff neutrophil,a bsolute 2.4 K/uL 1.6-8. 4 normal Not Available [facility] [address] [place] [address], [address], 01/11/2019 09:02:43 01/12/2001/11/2019 CBC w/ auto diff lymphocyte,a bsolute 2.8 K/uL 0.4-5. 1 normal Not Available [facility] [address] [place] [address], [address], 01/11/2019 09:02:43 01/12/2001/11/2019 CBC w/ auto diff monocyte,abs olute 0.5 K/uL 0.0-1. 2 normal Not Available [facility] [address] [place] [address], [address], 01/11/2019 09:02:43 01/12/2001/11/2019 CBC w/ auto diff eosinophil,a bsolute 0.2 K/uL 0.0-0. 8 normal Not Available [facility] [address] [place] [address], [address], 01/11/2019 09:02:43 01/12/2001/11/2019 CBC w/ auto diff basophil,abs olute 0.1 K/uL 0.0-0. 3 normal Not Available [facility] [address] [place] [address], [address], 01/11/2019 09:02:43 01/12/2001/11/2019 CBC w/ auto diff % neutrophils 40.6 % 42.0-7 8.0 low Not Available [facility] [address] [place] [address], [address], 01/11/2019 09:02:43 01/12/2001/11/2019 CBC w/ auto diff % lymphocytes 46.9 % 11.0-4 7.0 normal Not Available [facility] [address] [place] [address], [address], 01/11/2019 09:02:43 01/12/2001/11/2019 CBC w/ auto diff % monocytes 8.2 % 0.0-11 .0 normal Not Available [facility] [address] [place] [address], [address], 01/11/2019 09:02:43 01/12/2001/11/2019 CBC w/ auto diff % eosinophils 3.4 % 0.0-7. 0 normal Not Available [facility] [address] [place] [address], [address], 01/11/2019 09:02:43 01/12/2001/11/2019 CBC w/ auto diff % basophils 0.9 % 0.0-3. 0 normal Not Available [facility] [address] [place] [address], [address], 01/11/2019 09:02:43 01/12/2001/11/2019 CBC w/ auto diff nucleated red cells 0.1 % 0.0-0. 9 normal Not Available [facility] [address] [place] [address], [address], 01/11/2019 09:02:43 01/12/2001/11/2019 CBC w/ auto diff nucleated RBCs, absolute 0.01 K/uL not estab. normal Not Available [facility] [address] [place] [address], [address], 01/11/2019 09:02:43 01/12/2001/12/2020 CMP, serum or plasm a glucose 105 mg/dL 74-100 high Not Available [facility] [address] [place] [address], [address], 01/12/2020 09:32:21 01/12/2001/12/2020 CMP, serum or plasm a blood urea nitrogen 8 mg/dL 6-20 normal Not Available [facility] [address] [place] [address], [address], 01/12/2020 09:32:21 01/12/20 20 01/12/2020 CMP, serum or plasm a creatinine 0.86 mg/dL 0.50-0 .95 normal Not Available [facility] [address] [place] [address], [address], 01/12/2020 09:32:21 01/12/20 20 01/12/2020 CMP, serum or plasm a BUN/creatini ne ratio 9 (calc ) 10-20 low Not Available [facility] [address] [place] [address], [address], 01/12/2020 09:32:21 01/12/20 20 01/12/2020 CMP, serum or plasm a sodium 139 mmol/ L 136-14 5 normal Not Available [facility] [address] [place] [address], [address], 01/12/2020 09:32:21 01/12/20 20 01/12/2020 CMP, serum or plasm a potassium 4.2 mmol/ L 3.4-5. 0 normal Not Available [facility] [address] [place] [address], [address], 01/12/2020 09:32:21 01/12/2001/12/2020 CMP, serum or plasm a chloride 103 mmol/ L 98-107 normal Not Available [facility] [address] [place] [address], [address], 01/12/2020 09:32:21 01/12/2001/12/2020 CMP, serum or plasm a carbon dioxide 28 mmol/ L 20-32 normal Not Available [facility] [address] [place] [address], [address], 01/12/2020 09:32:21 01/12/20 20 01/12/2020 CMP, serum or plasm a anion gap 8 (calc ) 7-25 normal Not Available [facility] [address] [place] [address], [address], 01/12/2020 09:32:21 01/12/2001/12/2020 CMP, serum or plasm a calcium 9.1 mg/dL 8.6-10 .2 normal Not Available [facility] [address] [place] [address], [address], 01/12/2020 09:32:21 01/12/2001/12/2020 CMP, serum or plasm a total protein 6.7 g/dL 6.4-8. 3 normal Not Available [facility] [address] [place] [address], [address], 01/12/2020 09:32:21 01/12/2001/12/2020 CMP, serum or plasm a albumin 4.1 g/dL 3.5-5. 2 normal Not Available [facility] [address] [place] [address], [address], 01/12/2020 09:32:21 01/12/2001/12/2020 CMP, serum or plasm a globulin 2.6 g/dL_ (calc ) 1.5-4. 5 normal Not Available [facility] [address] [place] [address], [address], 01/12/2020 09:32:21 01/12/2001/12/2020 CMP, serum or plasm a albumin/glob ulin ratio 1.6 (calc ) 1.1-2. 5 normal Not Available [facility] [address] [place] [address], [address], 01/12/2020 09:32:21 01/12/2001/12/2020 CMP, serum or plasm a bilirubin, total 0.3 mg/dL 0.1-1. 2 normal Not Available [facility] [address] [place] [address], [address], 01/12/2020 09:32:21 01/12/20 20 01/12/2020 CMP, serum or plasm a alkaline phosphatase 58 U/L 35-105 normal Not Available [facility] [address] [place] [address], [address], 01/12/2020 09:32:21 01/12/20 20 01/12/2020 CMP, serum or plasm a AST 20 U/L 0-32 normal Not Available [facility] [address] [place] [address], [address], 01/12/2020 09:32:21 01/12/20 20 01/12/2020 CMP, serum or plasm a ALT 12 U/L 0-33 normal Not Available [facility] [address] [place] [address], [address], 01/12/2020 09:32:21 01/12/20 20 01/12/2020 CMP, serum or plasm a GFR 87 >= 60 normal Not Available [facility] [address] [place] [address], [address], 01/12/2020 09:32:21 01/12/20 20 01/12/2020 CMP, serum [...] month s or longe r. Not Available [facility] [place], [address], 01/12/2020 09:32:21 01/12/20 20 01/12/2020 CBC w/ auto diff white blood cells 5.1 K/uL 3.8-10 .8 normal Not Available [facility] [address] [place] [address], [address], 01/12/2020 09:07:06 01/12/20 20 01/12/2020 CBC w/ auto diff red blood cells 4.59 M/uL 3.80-5 .20 normal Not Available [facility] [address] [place] [address], [address], 01/12/2020 09:07:06 01/12/20 20 01/12/2020 CBC w/ auto diff hemoglobin 13.3 g/dL 12.0-1 6.0 normal Not Available [facility] [address] [place] [address], [address], 01/12/2020 09:07:06 01/12/2001/12/2020 CBC w/ auto diff hematocrit 39.6 % 35.0-4 7.0 normal Not Available [facility] [address] [place] [address], [address], 01/12/2020 09:07:06 01/12/2001/12/2020 CBC w/ auto diff MCV 86 fL 80-100 normal Not Available [facility] [address] [place] [address], [address], 01/12/2020 09:07:06 01/12/2001/12/2020 CBC w/ auto diff MCH 29 pg 26-35 normal Not Available [facility] [address] [place] [address], [address], 01/12/2020 09:07:06 01/12/20 20 01/12/2020 CBC w/ auto diff MCHC 34 g/dL 32-36 normal Not Available [facility] [address] [place] [address], [address], 01/12/2020 09:07:06 01/12/20 20 01/12/2020 CBC w/ auto diff RDW 14.5 % 11.0-1 5.0 normal Not Available [facility] [address] [place] [address], [address], 01/12/2020 09:07:06 01/12/20 20 01/12/2020 CBC w/ auto diff MPV 7.5 fL 6.2-10 .5 normal Not Available [facility] [address] [place] [address], [address], 01/12/2020 09:07:06 01/12/20 20 01/12/2020 CBC w/ auto diff platelet count 268 K/uL 130-40 0 normal Not Available [facility] [address] [place] [address], [address], 01/12/2020 09:07:06 01/12/20 20 01/12/2020 CBC w/ auto diff neutrophil,a bsolute 2.3 K/uL 1.6-8. 4 normal Not Available [facility] [address] [place] [address], [address], 01/12/2020 09:07:06 01/12/20 20 01/12/2020 CBC w/ auto diff lymphocyte,a bsolute 2.1 K/uL 0.4-5. 1 normal Not Available [facility] [address] [place] [address], [address], 01/12/2020 09:07:06 01/12/20 20 01/12/2020 CBC w/ auto diff monocyte,abs olute 0.4 K/uL 0.0-1. 2 normal Not Available [facility] [address] [place] [address], [address], 01/12/2020 09:07:06 01/12/20 20 01/12/2020 CBC w/ auto diff eosinophil,a bsolute 0.2 K/uL 0.0-0. 8 normal Not Available [facility] [address] [place] [address], [address], 01/12/2020 09:07:06 01/12/20 20 01/12/2020 CBC w/ auto diff basophil,abs olute 0.1 K/uL 0.0-0. 3 normal Not Available [facility] [address] [place] [address], [address], 01/12/2020 09:07:06 01/12/20 20 01/12/2020 CBC w/ auto diff % neutrophils 44.0 % 42.0-7 8.0 normal Not Available [facility] [address] [place] [address], [address], 01/12/2020 09:07:06 01/12/2001/12/2020 CBC w/ auto diff % lymphocytes 41.2 % 11.0-4 7.0 normal Not Available [facility] [address] [place] [address], [address], 01/12/2020 09:07:06 01/12/2001/12/2020 CBC w/ auto diff % monocytes 8.1 % 0.0-11 .0 normal Not Available [facility] [address] [place] [address], [address], 01/12/2020 09:07:06 01/12/2001/12/2020 CBC w/ auto diff % eosinophils 4.3 % 0.0-7. 0 normal Not Available [facility] [address] [place] [address], [address], 01/12/2020 09:07:06 01/12/2001/12/2020 CBC w/ auto diff % basophils 2.4 % 0.0-3. 0 normal Not Available [facility] [address] [place] [address], [address], 01/12/2020 09:07:06 01/12/2001/12/2020 CBC w/ auto diff nucleated red cells 0.0 % 0.0-0. 9 normal Not Available [facility] [address] [place] [address], [address], 01/12/2020 09:07:06 01/12/20 20 01/12/2020 CBC w/ auto diff nucleated RBCs, absolute 0.00 K/uL not estab. normal Not Available [facility] [address] [place], [address], 01/12/2020 09:07:06 01/04/20 22 01/03/2022 LIPID PROFI LE HDL cholesterol 63 mg/dL 50-242 normal Not Available [facility] [address] [place], [address], 01/03/2022 09:58:11 01/04/20 22 01/03/2022 LIPID PROFI LE triglyceride s 162 mg/dL 0-149 high TRIGL YCERI DE RANGE S SUSI L: < 150 BORDE RLINE HIGH: 150 - 199 HIGH: 200 - 499 VERY HIGH: > OR = 500 Not Available [facility] [address] [place] [address], [address], 01/03/2022 09:58:11 01/04/20 22 01/03/2022 LIPID PROFI LE cholesterol 264 mg/dL 0-199 high ELVA STERO L (TOTA L) RANGE S WU ABLE: < 200 BORDE RLINE : 200 - 239 HIGHE R RISK: > 239 Not Available [facility] [address] [place], [address], 01/03/2022 09:58:11 01/04/20 22 01/03/2022 LIPID PROFI LE LDL cholesterol 169 mg/dL _(diaz c) 0-99 high LDL ELVA STERO L RANGE S OPTIM AL: < 100 NEAR/ ABOVE OPTIM AL: 100 - 129 BORDE RLINE HIGH: 130 - 159 HIGH: 160 - 189 VERY HIGH: > OR = 190 Not Available [facility] [address] [place], [address], 01/03/2022 09:58:11 01/04/20 22 01/03/2022 COMP. METAB OLIC PANEL glucose 108 mg/dL 74-100 high Not Available [facility] [address] [place], [address], 01/03/2022 09:58:10 01/04/20 22 01/03/2022 COMP. METAB OLIC PANEL blood urea nitrogen 8 mg/dL 6-20 normal Not Available [facility] [address] [place] [address], [address], 01/03/2022 09:58:10 01/04/20 22 01/03/2022 COMP. METAB OLIC PANEL creatinine 0.91 mg/dL 0.50-0 .95 normal Not Available [facility] [address] [place] [address], [address], 01/03/2022 09:58:10 01/04/20 22 01/03/2022 COMP. METAB OLIC PANEL BUN/creatini ne ratio 9 (calc ) 10-20 low Not Available [facility] [address] [place] [address], [address], 01/03/2022 09:58:10 01/04/20 22 01/03/2022 COMP. METAB OLIC PANEL sodium 139 mmol/ L 136-14 5 normal Not Available [facility] [address] [place] [address], [address], 01/03/2022 09:58:10 01/04/20 22 01/03/2022 COMP. METAB OLIC PANEL potassium 4.5 mmol/ L 3.4-5. 0 normal Not Available [facility] [address] [place] [address], [address], 01/03/2022 09:58:10 01/04/20 22 01/03/2022 COMP. METAB OLIC PANEL chloride 100 mmol/ L 98-107 normal Not Available [facility] [address] [place] [address], [address], 01/03/2022 09:58:10 01/04/20 22 01/03/2022 COMP. METAB OLIC PANEL carbon dioxide 28 mmol/ L 22-31 normal Not Available [facility] [address] [place] [address], [address], 01/03/2022 09:58:10 01/04/20 22 01/03/2022 COMP. METAB OLIC PANEL anion gap 11 (calc ) 7-25 normal Not Available [facility] [address] [place] [address], [address], 01/03/2022 09:58:10 01/04/20 22 01/03/2022 COMP. METAB OLIC PANEL calcium 9.8 mg/dL 8.6-10 .2 normal Not Available [facility] [address] [place] [address], [address], 01/03/2022 09:58:10 01/04/20 22 01/03/2022 COMP. METAB OLIC PANEL total protein 7.9 g/dL 6.4-8. 3 normal Not Available [facility] [address] [place] [address], [address], 01/03/2022 09:58:10 01/04/20 22 01/03/2022 COMP. METAB OLIC PANEL albumin 4.4 g/dL 3.5-5. 2 normal Not Available [facility] [address] [place] [address], [address], 01/03/2022 09:58:10 01/04/20 22 01/03/2022 COMP. METAB OLIC PANEL globulin 3.5 g/dL_ (calc ) 1.5-4. 5 normal Not Available [facility] [address] [place] [address], [address], 01/03/2022 09:58:10 01/04/20 22 01/03/2022 COMP. METAB OLIC PANEL albumin/glob ulin ratio 1.3 (calc ) 1.1-2. 5 normal Not Available [facility] [address] [place] [address], [address], 01/03/2022 09:58:10 01/04/20 22 01/03/2022 COMP. METAB OLIC PANEL bilirubin, total 0.5 mg/dL 0.1-1. 2 normal Not Available [facility] [address] [place], [address], 01/03/2022 09:58:10 01/04/20 22 01/03/2022 COMP. METAB OLIC PANEL alkaline phosphatase 73 U/L 30-121 normal Not Available [facility] [address] [place], [address], 01/03/2022 09:58:10 01/04/20 22 01/03/2022 COMP. METAB OLIC PANEL AST 25 U/L 0-32 normal Not Available [facility] [address] [place], [address], 01/03/2022 09:58:10 01/04/20 22 01/03/2022 COMP. METAB OLIC PANEL ALT 17 U/L 0-33 normal Not Available [facility] [address] [place], [address], 01/03/2022 09:58:10 01/04/20 22 01/03/2022 COMP. METAB OLIC PANEL GFR 73 >= 60 normal NOT E New calcu latio n for GFR (CKD- EPI 2020) is formu lated witho ut race adjus tment facto rs at the recom menda tion of the [employer] and Ameri can [facility] ty of Nephr ology . This calcu latio n has not been valid ated in pregn ant women . For pedia tric patie nts refer to https ://leona [email or web address] [email or web address] rg/pr ofess ional s/KDO QI/gf r_cal culat orPed Not Available [facility] [address] [place], [address], 01/03/2022 09:58:10 01/04/20 22 01/03/2022 COMPL ETE BLOOD COUNT white blood cells 6.9 K/uL 3.8-10 .8 normal Not Available [facility] [address] [place], [address], 01/03/2022 09:22:33 01/04/20 22 01/03/2022 COMPL ETE BLOOD COUNT red blood cells 4.85 M/uL 3.80-5 .20 normal Not Available [facility] [address] [place] [address], [address], 01/03/2022 09:22:33 01/04/20 22 01/03/2022 COMPL ETE BLOOD COUNT hemoglobin 13.6 g/dL 12.0-1 6.0 normal Not Available [facility] [address] [place] [address], [address], 01/03/2022 09:22:33 01/04/20 22 01/03/2022 COMPL ETE BLOOD COUNT hematocrit 40.8 % 35.0-4 7.0 normal Not Available [facility] [address] [place] [address], [address], 01/03/2022 09:22:33 01/04/20 22 01/03/2022 COMPL ETE BLOOD COUNT MCV 84 fL 80-100 normal Not Available [facility] [address] [place] [address], [address], 01/03/2022 09:22:33 01/04/20 22 01/03/2022 COMPL ETE BLOOD COUNT MCH 28 pg 26-35 normal Not Available [facility] [address] [place] [address], [address], 01/03/2022 09:22:33 01/04/20 22 01/03/2022 COMPL ETE BLOOD COUNT MCHC 33 g/dL 32-36 normal Not Available [facility] [address] [place] [address], [address], 01/03/2022 09:22:33 01/04/20 22 01/03/2022 COMPL ETE BLOOD COUNT RDW 15.1 % 11.0-1 5.0 high Not Available [facility] [address] [place] [address], [address], 01/03/2022 09:22:33 01/04/20 22 01/03/2022 COMPL ETE BLOOD COUNT MPV 7.1 fL 6.2-10 .5 normal Not Available [facility] [address] [place] [address], [address], 01/03/2022 09:22:33 01/04/20 22 01/03/2022 COMPL ETE BLOOD COUNT platelet count 328 K/uL 130-40 0 normal Not Available [facility] [address] [place] [address], [address], 01/03/2022 09:22:33 01/04/20 22 01/03/2022 COMPL ETE BLOOD COUNT neutrophil,a bsolute 2.9 K/uL 1.6-8. 4 normal Not Available [facility] [address] [place] [address], [address], 01/03/2022 09:22:33 01/04/20 22 01/03/2022 COMPL ETE BLOOD COUNT lymphocyte,a bsolute 3.0 K/uL 0.4-5. 1 normal Not Available [facility] [address] [place] [address], [address], 01/03/2022 09:22:33 01/04/20 22 01/03/2022 COMPL ETE BLOOD COUNT monocyte,abs olute 0.7 K/uL 0.0-1. 2 normal Not Available [facility] [address] [place] [address], [address], 01/03/2022 09:22:33 01/04/20 22 01/03/2022 COMPL ETE BLOOD COUNT eosinophil,a bsolute 0.2 K/uL 0.0-0. 8 normal Not Available [facility] [address] [place] [address], [address], 01/03/2022 09:22:33 01/04/20 22 01/03/2022 COMPL ETE BLOOD COUNT basophil,abs olute 0.1 K/uL 0.0-0. 3 normal Not Available [facility] [address] [place] [address], [address], 01/03/2022 09:22:33 01/04/2001/03/2022 COMPL ETE BLOOD COUNT % neutrophils 42.0 % 42.0-7 8.0 normal Not Available [facility] [address] [place] [address], [address], 01/03/2022 09:22:33 01/04/20 22 01/03/2022 COMPL ETE BLOOD COUNT % lymphocytes 42.8 % 11.0-4 7.0 normal Not Available [facility] [address] [place] [address], [address], 01/03/2022 09:22:33 01/04/20 22 01/03/2022 COMPL ETE BLOOD COUNT % monocytes 10.6 % 0.0-11 .0 normal Not Available [facility] [address] [place] [address], [address], 01/03/2022 09:22:33 01/04/2001/03/2022 COMPL ETE BLOOD COUNT % eosinophils 3.5 % 0.0-7. 0 normal Not Available [facility] [address] [place] [address], [address], 01/03/2022 09:22:33 01/04/2001/03/2022 COMPL ETE BLOOD COUNT % basophils 1.1 % 0.0-3. 0 normal Not Available [facility] [address] [place] [address], [phone], 01/03/2022 09:22:33 01/04/2001/03/2022 COMPL ETE BLOOD COUNT nucleated red cells 0.0 % 0.0-0. 9 normal Not Available [facility] [address] [place] [address], [phone], 01/03/2022 09:22:33 01/04/20 22 01/03/2022 COMPL ETE BLOOD COUNT nucleated RBCs, absolute 0.00 K/uL not estab. normal Not Available [facility] [address] [place], [phone], 01/03/2022 09:22:33 05/09/19 18 05/07/2017 MAMMO , scree mary beth, tomos ynthe sis, bilat eral, w/ CAD No observ ation record ed. [email or web address] Not Available 2017 17:58:15 05/13/19 19 05/11/2018 MAMMO , scree mary beth, tomos ynthe sis, bilat eral, w/ CAD No observ ation record ed. [facility] [address] [place] [address], [phone], 05/13/2018 14:48:29 02/13/20 19 02/11/2019 audio gram No observ ation record ed. BARCODE Not Available 2018 09:39:21 Result Notes None recorded. Problems Name Problem SNOMED Code Status Onset Date Resolution Date Notes Provider Name and Address Organization Details Recorded Time Non-Hodgk in's lymphoma (clinical ) 595381711 Active 2014 From Automated Load;Provi molina: Susannah Ballard;Stat us: Active Not Available [facility] 6 06:25:29 Blood coagulati on disorder 11136243 Active 2015 From Automated Load;Provi molina: Susannah Ballard;Stat us: Active Not Available [facility] 7 07:52:10 Problem Notes None recorded. Procedures Surgical History Date Name Laterality Status Provider Name and Address Organization Details Recorded Time 02/12/20 19 Tympanogram completed ALEJO PRICE, SHELBY [address] [place], [phone], [facility] 02/11/2019 14:55:15 02/12/20 Audiogram completed SHELBY DANIELS [address] [place], [address], [facility] 02/11/2019 14:55:13 Appendectomy completed Reji Vizuete-Ort [facility] 01/01/2017 10:01:29 Cholecystectomy completed Reji Vizuete-Ort [facility] 01/01/2017 10:01:43 Partial hysterectomy completed Reji Vizuete-Ort [facility] 01/01/2017 10:01:54 ligation of fallopian tube completed [facility] 02/11/2019 13:57:51 Cholecystectomy completed [facility] 02/11/2019 13:58:07 colonoscopy completed [facility] 02/11/2019 13:58:31 procedure on neck completed [facility] 02/11/2019 13:58:49 Imaging Results None recorded. Procedure Notes None recorded. Medical Equipment None Reported. Allergies Allergen ID Allergen Name Allergen Category Reaction Reaction Severity Criticality Documentation Date Start Date Code Code System Note Provider Name and Address Organization Details Recorded Time 208343 hydrocodo ne bitartrat e medicatio n Not available Not available Not available 03/14/20162006 21969 9 RxNorm Comme nt: Creat ed By: Rodrigo Jarrett ie;Cr eated Date: 10:03 :41 AM; Not Available [facility] 6 10:54:39 544199 Prilosec medicatio n Not available Not available Not available 03/15/2016201534 5 RxNorm Comme nt: Creat ed By: Constance on Madina ;Crea arturo Date: 2015 10:06 :30 AM; Not Available [facility] 6 03:55:25 377117 Xarelto medicatio n Not available Not available Not available 03/15/20162015 07608 99 RxNorm Comme nt: Creat ed By: Constance on Madina ;Crea arturo Date: 2015 10:05 :15 AM; Not Available [facility] 6 07:45:15 483330 Calan medicatio n Not available Not available Not available 03/15/2016200649 0 RxNorm Comme nt: Creat ed By: Rodrigo Jarrett ie;Cr eated Date: 9/6/2 007 10:04 :01 AM; Not Available [facility] 6 08:39:26 Medications Name Sig Start Date Stop Date Status Note LastModified by Organization Details LastModified Time Toprol XL 100 mg tablet,ext ended release Daily active Frequency: daily;Medi cation Descriptio n: metoprolol succinate; Dosage:1; Route:oral ; refills:0 Not Available Not Available Not Available Maxalt-ORACLE EBS ARCHITECT 10 mg disintegra ting tablet Take 1 [...] Updated DateTime 7 165.1 cm 45.7 kg/m2 895013. 18 g 97.5 [degF] 66 /min 131/86 mm[Hg] Reji UGARTE [facility] 7 10:05:00 Date Recorded Pain severity - 0-10 verbal numeric rating [Score] - Reported Provider Name and Address Organization Details Last Updated DateTime 01/01/2017 0 Not Available [facility] 8 10:32:16 Date Recorded Body height Body mass index (BMI) Body weight Body temperature Heart rate Heart rate Systolic And Diastolic Systolic And Diastolic Provider Name and Address Organization Details Last Updated DateTime 8 165.1 cm 47 kg/m2 080092. 84 g 97.5 [degF] 65 /min 65 /min 136/102 mm[Hg] 121/70 mm[Hg] Luis Enrique Valle [facility] 8 09:27:26 Date Recorded Body weight Body mass index (BMI) Body height Body temperature Heart rate Systolic And Diastolic Provider Name and Address Organization Details Last Updated DateTime 9 997573. 9 g 45.8 kg/m2 165.1 cm 96.5 [degF] 83 /min 142/87 mm[Hg] Sanjuanita Wallace [facility] 9 14:22:22 Social History Question Answer Notes LastModified by Organizat ion Details LastModified Time Tobacco Smoking Status [facility]2017 10:02:11 Live Alone Or With Others? With Others [email or web address] Information not available 01/01/2017 Marital Status Informatio n not available 01/01/2017 What Was The Date Of Your Most Recent Tobacco Screening? 01/07/2018 Information not available 06/08/2019 Has Tobacco Cessation Counseling Been Provided? No Information not available 01/01/2017 Sex: Female Functional Status Question Answer Note LastModified by Organization D etails LastModified Time What is your level of alcohol consumption? None [email or web address] Information not available 01/01/2017 Mental Status None recorded. Family History Relationship Description Onset Age of this Age Resolved Age Notes LastModified by Organization Details LastModified Time Mother Diabetes mellitus [email or web address] Not available 2016 09:59:31 Mother Family history of malignant neoplasm [email or web address] Not available 2016 09:59:47 Mother Heart disease [email or web address] Not available 2016 10:00:30 Mother Hyperlipidem ia Not available 2016 10:00:43 Mother Hypertensive disorder Not available 2016 10:00:58 Mother Asthma [email or web address] Not available 02/11/2019 13:56:11 Maternal Grandfather Family history of malignant neoplasm [email or web address] Not available 2016 09:59:47 Maternal Grandmother Family history of stroke [email or web address] Not available 2016 10:00:05 Father Heart disease [email or web address] Not available 2016 10:00:30 Sister Hypertensive disorder Not available 2016 10:00:58 Sister Disorder of thyroid gland [email or web address] Not available 02/11 13:55:10 Medical History Condition Response Cancer Y Blood Transfusion Y Gynecological HistoryNo gynecological history recorded. Obstetrics History GPAL:G 0 P 0 0 0 0 Past Encounters Encounter ID Performer Location Encounter Start Date Encounter Closed Date Diagnosis/Indication Diagnosis SNOMED-CT Code Diagnosis ICD10 Code Diagnosis IMO Codes Diagnosis Note [id number] SUSANNAH BALLARD MD [facility] [address] [place] [address] 01/01/2017 09:05:16 01/01/2017 11:50:36 Blood coagulation disorder 71349115 D68.59 History of non-Hodgkins lymphoma 469428638 Z85.72 [id number] SUSANNAH BALLARD MD [facility] [address] [place] [address] 01/07/2018 08:49:47 01/07/2018 10:46:01 Non-Hodgkin's lymphoma (clinical) 234295997 C85.80 E78.5 Blood coag ulation disorder 10743926 D68.59 Morbid obesity 280867791 E66.01 [id number] SUSANNAH BALLARD MD H[facility] [address] [place] [address] 01/11/2019 08:55:10 01/11/2019 11:07:29 [id number] MILKA WALKER MD [place] [facility] [address] [place] [address] 02/11/2019 13:30:03 02/11/2019 15:57:14 Dysfunction of bilateral eustachian tubes 5773932234 063043 H69.93 Dizziness 416965776 R42 Nausea 518730981 R11.0 Migraine with aura 06993 06 G43.109 -hx Migraine 75832590 G43.90 9 vestibular [id number] SHELBY DANIELS ENT [address] [place] [address] 02/11/2019 14:39:21 02/11/2019 15:44:54 Dysfunction of bilateral eustachian tubes 9680827220 745170 H69.93 [id number] SUSANNAH BALLARD MD H[facility] [address] [place] [address] 01/12/2020 09:03:57 01/12/2020 11:16:40 [id number] SUSANNAH BALLARD MD HEM/[facility]C [facility] [address] [place] [address] 01/10/2021 09:05:14 01/10/2021 12:50:40 [id number] SUSANNAH BALLARD MD HEM/ONC [facility] [address] [place] [address] 01/03/2022 09:08:05 01/03/2022 11:54:52 Health Concerns Section Related Observation LastModified by Organization Detai ls LastModified Time None Recorded Concern Status LastModified by Organization Details LastModified Time None Recorded Advance Directives Directive None Recorded Payers Insurance Date Sequence Insurance Name Policy Number Policy Lynn Covered Member ID Lynn Member ID Guarantor Name 01/15/2022 2 [employer] [facility] [employer] (PPO) Jessica Odell [id number] Jessica Odell 01/11/2022 2 [facility] [employer] - [facility]ULTIPLAN (PPO) Jessica Odell [id number] Jessica Odell 01/10/2022 1 [facility] (MEDICAID HMO) Jessica Odell [id number] Jessica Odell 01/10/2022 GENERIC INSURANC E - MOVED-HOLD Jessica Odell 08/23/2021 1 [place] [id number] Oskar Odell [id number] Jessica Odell Notes Date Note Type Note Provider Name and Address Organization Details Recorded Time 01/01/2017 text/html Ms. 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 She had 8 cycles of ProMACE-CytaBom chemotherapy, followed by thoracic radiation. Other medical history is significant for anti-thrombin III deficiency, DVT and PE in 2013, continuing on Coumadin, hysterectomy with incidental appendectomy in 1997, arthritis and obesity. SUSANNAH BALLARD MD [address] [place] [address], [phone], [facility] 02/16/2017 21:48:36 01/07/2018 text/html Ms. 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 She had 8 cycles of ProMACE-CytaBom chemotherapy, followed by thoracic radiation. Other medical history is significant for anti-thrombin III deficiency, DVT and PE in 2013, continuing on Coumadin, hysterectomy with incidental appendectomy in 1997, arthritis and obesity. SUSANNAH BALLARD MD [address] [place] [address], [phone], [facility] 01/11/2018 18:00:27 02/11/2019 text/html Jessica is a 53 year old female being seen in the office [...] sensitive to certain scents. MILKA WALKER MD [address] [place] [address], [phone], [facility] 02/11/2019 18:17:57 OBGyn Episode No OBEpisode recorded.
--- OUTSIDE RECORDS SUMMARY | 2025-03-23 13:56 | XMS_ITS | Clinical Summary ---
Author Organization [facility] Address [address] [id number] Care Team Providers Care Comber Setter Name Role Phone Martin Khan MD Primary Care Provider [phone] Social History Tobacco Use Types Packs/Day Years [...] Date Last Done Comments [facility]-Depression Screening 1965 [facility]-Infant/Child/Adol SDOH Screenings 1965 [facility]- SDOH Screenings 12/24/1981 [facility]-Adult SDOH Screenings 12/24/1981 [facility]-Pap Smear 12/24/1984 [facility]-Cervical Cancer Screening 12/24/1993 [facility]-HPV/Cotest 12/24/1993 CT Colonography 12/24/2008 Colonoscopy 12/24/2008 FIT-DNA 12/24/2008 FIT 12/24/2008 FOBT 12/24/2008 Sigmoidoscopy 12/24/2008 [facility]-Colorectal Cancer Screening 12/24/2008 [facility]-Pneumococcal Vaccine: 50+ Years (1 of 1 - PCV) 12/24/2013 [facility]-Zoster Vaccines (1 of 2) 12/24/2013 [id number] Vaccine ( season) 2024 03/14/2021, 07/19/2020, 07/18/2020, Additional history exists [facility]-Influenza Vaccine (#1) 2024 [facility]-DTaP,Tdap,and Td Vaccines (2 - Td or Tdap) 11/21/2031 11/20/2021, 06/22/1996 [facility]-RSV Vaccine: 60+ Years or (1 - 1-dose 75+ series) 12/24/2038 HPV Vaccines Aged Out No longer eligi [...] age to complete this topic Insurance [employer] MEDICAID Care Teams Comber Setter Relationship Specialty Start Date End Date Martin Khan MD [address] [place], [place] [address] PCP - General 09/01/20
[2025-03-23 15:10] LABS: PHA INR Fingerstick 3.4 (0.9-1.1)
== END 2025-03-23 15:12 ==
LOC: ACC 13:54
PROVIDERS: PCP Internal Medicine; Visit Provider Internal Medicine
DX: Z79.01 Long term (current) use of anticoagulants (principal)
CPT/HCPCS: 85610; 99211; G0463